=== PATIENT | female | born 1980 | race Caucasian/White ===

== ENCOUNTER 2016-09-07 07:43 | Emergency (ER) | payer OTHER ==
[~2016-09-07] VITALS: Ht 167.6 cm; Wt 98.9 kg
[~2016-09-07 07:43] MED LIST: ALBU1AER9 INH; BECL0.3A INH; DIPH-416 PO; MAGN500T3 PO; VTMD PO; ZOLM1TAB3 PO
[2016-09-07 07:51] VITALS: TEMP 36.8; Ht 167.6 cm; Wt 98.9 kg
[2016-09-07] MEDS ORDERED: ONDANSETRON INJ 2 MG/ML 2 ML VIAL IV STA ×2 (08:02→11:16)
[2016-09-07] MEDS ORDERED: SODIUM CHLORIDE 0.9% 1000ML 1,000 ML IV STA ×2 (08:02)
--- NOTE | 2016-09-07 08:16 | EMERGENCY ROOM VISIT NOTE ---
History Report prepared by Minnieibe: Althea Medina Under the Supervision of: Dr. Corie Hendrix M.D. First contact with patient: 08:00 Chief Complaint: ABDOMINAL PAIN Stated Complaint: VOMITING, ABDOMINAL CRAMPS, DIARRHEA Nursing Triage Summary: Abd pain, n/v/d Seen her GI phys on Saturday for same, was told to come here if no improvement. Recent dx of gastroparesis per pt. History of Present Illness The patient is a 36 year old female who presents to the Emergency Room with complaints of persistent abdominal pain for the past 8 days. She rates her discomfort as an 8/10 and describes the pain as feeling "crampy" in nature. She reports she saw her insurance salesman 4 days ago for the same symptoms, and was told to come to the ED if there was no improvement. She notes she was diagnosed with gastroparesis and Mendes's Esophagus in June 2016. Dr. Anderson of [facility] put her on Reglan last month, so she has been unable to take her Promethazine. She also complains of vomiting and diarrhea for the past several days. She describes the diarrhea as ranging from dark in color to "very watery". She has tried drinking water and Gatorade, but states she vomits the liquid right back up. 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 A total of 10 systems reviewed and were otherwise negative. Past Medical & Surgical Medical Problems: (1) Abdominal pain (2) Adverse reaction to calcium channel jasmyne (3) Bronchitis (4) Chronic neck pain (5) Depression (6) Gastroesophageal reflux disease (7) Hypothyroidism (8) Migraine (9) Polycystic ovaries (10) Right ovarian cyst Surgical Problems: (1) H/O sinus surgery (2) S/P cholecystectomy Family History Cancer Diabetes mellitus FHx: alcoholism Heart disease Hypertension Social History Smoking Status: Never Smoker Alcohol Use: none Drug Use: none Marital Status: single, in relationship Housing Status: lives with family Occupation Status: employed Current/Historical Medications Scheduled Amlodipine (Norvasc), 5 MG PO DAILY Atenolol (Tenormin), 25 MG PO QPM Baclofen (Baclofen), 20 MG PO TID Buspirone HCl (Buspirone HCl), 5 MG PO DAILY Duloxetine HCl (Duloxetine HCl), 90 MG PO DAILY Ergocalciferol (Vitamin D), 50,000 INTER.UNIT PO WK Famotidine (Pepcid), 20 MG PO DAILY Fish Oil ([place]-3), 1 CAP PO DAILY Fluticasone Propionate (Nasal) (Flonase Allergy Relief), 2 SPRAY YARELY BID Folic Acid (Folvite), 400 MCG PO DAILY Furosemide (Lasix), 20 MG PO BID Levothyroxine Sodium (Levothyroxine Sodium), 50 MCG PO DAILY Magnesium Gluconate (Magnesium Gluconate), 250 MG PO DAILY Metformin HCl (Metformin HCl), 500 MG PO BIDM Metoclopramide Hcl (Reglan), 5 MG PO TID Multivitamins/Minerals (Mvi With Minerals), 1 TAB PO DAILY Potassium Chloride Microencaps (Potassium Chloride Er), 1 TAB PO BID Propranolol (Inderal), 10 MG PO BID Tizanidine (Tizanidine HCl), 4-8 MG PO HS Trazodone Hcl (Trazodone), 50 MG PO HS Zolmitriptan (Zomig), 2.5 MG PO PRN Scheduled PRN Albuterol Sulfate (Proair Hfa), 2 PUFFS INH Q4-6HRS PRN for Chest Tightnes, Wheezing,SOB Beclomethasone Dipropionate (Qvar), 1 INHALER INH BID PRN for ALLERGIC REACTION Chlordiazepoxide/Clidinium (Librax 5MG/2.5MG), 1 CAP PO QID PRN for Hyoscyamine Sulfate (Hyoscyamine Sulfate), 0.125 MG PO Q4H PRN for Abdominal Pain Promethazine (Phenergan Suppository), 25 MG NC Q6H PRN for Nausea Promethazine HCl (Promethazine HCl), 25 MG PO HS PRN for Nausea or Migraine Allergies Coded Allergies: Cephalexin (Verified Allergy, Mild, rash, 09/07/16) Morphine (Verified Allergy, Unknown, HIVES/ITCHING, N&V, 09/07/16) Topiramate (Verified Allergy, Unknown, neurological symptoms, 09/07/16) Physical Exam Vital Signs Date Time Temp Pulse Resp B/P Pulse Ox O2 Delivery O2 Flow Rate FiO2 09/07/16 11:24 84 18 116/65 96 Room Air 09/07/16 09:02 91 18 110/65 96 Room Air 09/07/16 07:51 36.8 117 20 125/86 97 Room Air Physical Exam Vital signs reviewed. General: Well-appearing 36 year old female, in no significant distress. HEENT: No scleral icterus, PERRLA, neck supple. Atraumatic. Cardiovascular: Regular rate and rhythm, no extra sounds. Pulmonary: Clear to auscultation bilaterally, normal work of breathing. Abdomen: Soft, nontender, nondistended, positive bowel sounds. Musculoskeletal: Atraumatic, no peripheral edema. Neurologic: Patient awake alert and oriented x 3 Skin: Warm, dry, no rash Medical Decision & Procedures Laboratory Results 09/07/16 08:06 Red Blood Count 4.24, Mean Corpuscular Volume 88.0, Mean Corpuscular Hemoglobin 30.9, Mean Corpuscular Hemoglobin Concent 35.1, Mean Platelet Volume 9.7, Neutrophils (%) (Auto) 64.5, Lymphocytes (%) (Auto) 27.6, Monocytes (%) (Auto) 6.3, Eosinophils (%) (Auto) 1.4, Basophils (%) (Auto) 0.1, Neutrophils # (Auto) 5.99, Lymphocytes # (Auto) 2.57, Monocytes # (Auto) 0.59, Eosinophils # (Auto) 0.13, Basophils # (Auto) 0.01 09/07/16 08:06 Test 09/07/16 08:06 09/07/16 09:13 White Blood Count 9.30 K/uL (4.8-10.8) Red Blood Count 4.24 M/uL (4.2-5.4) Hemoglobin 13.1 g/dL (12.0-16.0) Hematocrit 37.3 % (37-47) Mean Corpuscular Volume 88.0 fL (80-100) Mean Corpuscular Hemoglobin 30.9 pg (25-34) Mean Corpuscular Hemoglobin Concent 35.1 g/dl (32-36) Platelet Count 270 K/uL (130-400) Mean Platelet Volume 9.7 fL (7.4-10.4) Neutrophils (%) (Auto) 64.5 % Lymphocytes (%) (Auto) 27.6 % Monocytes (%) (Auto) 6.3 % Eosinophils (%) (Auto) 1.4 % Basophils (%) (Auto) 0.1 % Neutrophils # (Auto) 5.99 K/uL (1.4-6.5) Lymphocytes # (Auto) 2.57 K/uL (1.2-3.4) Monocytes # (Auto) 0.59 K/uL (0.11-0.59) Eosinophils # (Auto) 0.13 K/uL (0-0.5) Basophils # (Auto) 0.01 K/uL (0-0.2) RDW Standard Deviation 43.5 fL (36.4-46.3) RDW Coefficient of Variation 13.5 % (11.5-14.5) Immature Granulocyte % (Auto) 0.1 % Immature Granulocyte # (Auto) 0.01 K/uL (0.00-0.02) Anion Gap 11.0 mmol/L (3-11) Est Creatinine Clear Calc Drug Dose 94.1 ml/min Estimated GFR () 86.0 Estimated GFR (Non- 74.2 BUN/Creatinine Ratio 8.2 (10-20) Calcium Level 8.9 mg/dl (8.5-10.1) Magnesium Level 2.1 mg/dl (1.8-2.4) Total Bilirubin 0.5 mg/dl (0.2-1) Direct Bilirubin 0.1 mg/dl (0-0.2) Aspartate Amino Transf (AST/SGOT) 25 U/L (15-37) Alanine Aminotransferase (ALT/SGPT) 33 U/L (12-78) Alkaline Phosphatase 90 U/L (45-117) Total Protein 7.5 gm/dl (6.4-8.2) Albumin 3.9 gm/dl (3.4-5.0) Lipase 116 U/L (73-393) Urine Color YELLOW Urine Appearance CLEAR (CLEAR) Urine pH 6.0 (4.5-7.5) Urine Specific [place] 1.007 (1.000-1.030) Urine Protein NEG (NEG) Urine Glucose (UA) NEG (NEG) Urine Ketones NEG (NEG) Urine Occult Blood NEG (NEG) Urine Nitrite NEG (NEG) Urine Bilirubin NEG (NEG) Urine Urobilinogen NEG (NEG) Urine Leukocyte Esterase NEG (NEG) Laboratory results per my review. Medications Administered Medications (Trade) Dose Ordered Sig/Jean Claude Route Start Time Stop Time Status Last Admin Dose Admin Sodium Chloride 1,000 ml @ 999 mls/hr Q1H1M STAT IV 09/07/16 08:02 09/07/16 09:02 DC 09/07/16 08:02 999 MLS/HR Sodium Chloride (Nss 1000ml) 1,000 ml @ 125 mls/hr Q8H STAT IV 09/07/16 08:02 09/07/16 12:10 DC 09/07/16 08:02 125 MLS/HR Ondansetron HCl (Zofran Inj) 4 mg NOW STAT IV 09/07/16 08:02 09/07/16 08:03 DC 09/07/16 08:24 4 MG Hydromorphone HCl (Dilaudid Inj) 1 mg NOW STAT IV 09/07/16 11:16 09/07/16 11:17 DC 09/07/16 11:23 1 MG ED Course 0802: Zofran 4 mg IV, NSS 1000 ml @ 125 mls/hr IV, NSS 1000 ml @ 999 mls/hr IV. 0807: Past medical records reviewed. The patient was evaluated in room B9. A complete history and physical examination was performed. 0945: I reevaluated the patient. She is resting comfortably. 1116: Dilaudid 1 mg IV. 1150: The patient was discharged prior to receiving any instructions. Medical Decision Etiologies such as appendicitis, diverticulitis, PUD, biliary pathology, UTI, pancreatitis, obstruction, mesenteric ischemia, aortic pathology, infections, inflammatory bowel disease, renal colic, as well as others were entertained. This patient was evaluated and appeared to be in no significant distress. IV access was obtained and laboratory work was drawn. 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 She was hydrated with normal saline solution, given IV Zofran for her discomfort. Laboratory work is fairly unrevealing, the patient was unable to provide a stool specimen. On reevaluation the patient stated that she was having cramping lower discomfort and back pain. She requested additional nausea medication as well. The patient was given 1 mg of IV Dilaudid and additional Zofran. She was feeling much improved. The patient was discharged however she was discharged prior to receiving instructions. Impression Primary Impression: Vomiting and diarrhea Scribe Attestation The scribe's documentation has been prepared under my direction and personally reviewed by me in its entirety. I confirm that the note above accurately reflects all work, treatment, procedures, and medical decision making performed by me. Departure Information Dispostion Home / Self-Care Referrals Melania Zhou D.O. (PCP) Patient Instructions A Signature Page
[2016-09-07 08:20] LABS: BASO % 0.1 %; BASO ABS # 0.01 K/uL (0-0.2); COMPLETE YES; EOS % 1.4 %; HEMATOCRIT 37.3 % (37-47); IG% 0.1 %; LYMPH % 27.6 %; LYMPH ABS # 2.57 K/uL (1.2-3.4); MEAN CORPUSCULAR HEMOGLOBIN 30.9 pg (25-34); MEAN CORPUSCULAR HGB CONC 35.1 g/dl (32-36); MEAN PLATELET VOLUME 9.7 fL (7.4-10.4); MONO % 6.3 %; NEUT % 64.5 %; PLATELET COUNT 270 K/uL (130-400); RED BLOOD COUNT 4.24 M/uL (4.2-5.4)
[2016-09-07 08:38] LABS: BUN/CREATININE RATIO 8.2 (10-20); CALCIUM 8.9 mg/dl (8.5-10.1); CREATININE 0.98 mg/dl (0.60-1.20); MAGNESIUM 2.1 mg/dl (1.8-2.4); POTASSIUM 3.5 mmol/L (3.5-5.1)
[2016-09-07 09:35] LABS: URINE APPEARANCE CLEAR (CLEAR); URINE BILIRUBIN NEG (NEG); URINE COLOR YELLOW; URINE NITRITE NEG (NEG); URINE SPECIFIC GRAVITY 1.007 (1.000-1.030); UROBILINOGEN NEG (NEG); ZZUR CULT IF INDIC CLEAN CATCH NO
[2016-09-07 09:37] LABS: MANUAL MICROSCOPIC REQUIRED? NO; REVIEW REQ? NO
[2016-09-07] MEDS ORDERED: HYDROmorphone INJ 1 MG/ML SYR IV STA (11:16)
[2016-09-07 11:24] VITALS: BP 116/65; PULSE 84; O2SAT 96
[2016-09-11] MEDS ORDERED: KETO10TA PO (18:20)
[2017-01-29] MEDS ORDERED: LEVO50TA6 PO (00:25)
[2017-01-29] MEDS ORDERED: GLC500 PO (00:27)
[2017-01-29] MEDS ORDERED: AMLO-110 PO (04:08)
[2017-01-29] MEDS ORDERED: METO1TAB54 PO (09:03)
[2017-01-29] MEDS ORDERED: FURO-85 PO (09:03)
[2017-01-29] MEDS ORDERED: FAMO20TA9 PO (09:03)
[2017-01-29] MEDS ORDERED: POTA20TA13 PO (09:03)
[2017-01-29] MEDS ORDERED: BSP/5 PO (11:38)
[2017-01-29] MEDS ORDERED: CLID5CAP PO (13:23)
[2017-01-29] MEDS ORDERED: ATEN-173 PO (19:24)
[2017-01-29] MEDS ORDERED: FLUT0.15 NAE (19:26)
[2017-01-29] MEDS ORDERED: CYM30 PO (21:02)
[2017-01-29] MEDS ORDERED: LVS125 PO (21:02)
[2017-01-29] MEDS ORDERED: PROM25TA16 PO (21:02)
[2017-01-29] MEDS ORDERED: OMEG10007 PO (21:06)
[2017-01-29] MEDS ORDERED: ERGO1CAP41 PO (22:40)
== END 2016-09-07 11:54 | disposition home or self-care (01) ==
LOC: C.EDB 07:46
DX: R11.2 Nausea with vomiting, unspecified (principal); R19.7 Diarrhea, unspecified; R10.9 Unspecified abdominal pain; K21.9 Gastro-esophageal reflux disease without esophagitis; E03.9 Hypothyroidism, unspecified; Z79.84 Long term (current) use of oral hypoglycemic drugs; Z79.899 Other long term (current) drug therapy; Z88.1 Allergy status to other antibiotic agents; Z88.5 Allergy status to narcotic agent; Z88.8 Allergy status to other drugs, medicaments and biological substances

== ENCOUNTER 2016-09-08 23:46 | Inpatient (IN) | payer OTHER ==
[~2016-09-08] VITALS: Ht 167.6 cm; Wt 97.7 kg
[~2016-09-08 23:46] MED LIST changes: -DIPH-416 PO
[2016-09-09] MEDS ORDERED: SODIUM CHLORIDE 0.9% 1000ML 1,000 ML IV STA ×2 (00:32)
[2016-09-09] MEDS ORDERED: ONDANSETRON INJ 2 MG/ML 2 ML VIAL IV STA (00:32)
[2016-09-09] MEDS ORDERED: HYDROmorphone INJ 2 MG/ML SYR/VIAL IV STA (00:54)
--- NOTE | 2016-09-09 00:59 | EMERGENCY ROOM VISIT NOTE ---
History Report prepared by Dion: John Taylor Under the Supervision of: Dr. Alida Castillo D.O. First contact with patient: 00:00 Chief Complaint: GI ASSESSMENT Stated Complaint: RETURN FROM YESTERDAY [facility] History of Present Illness The patient is a 36 year old female who presents to the Emergency Room with complaints of escalating diffuse abdominal pain for the past two weeks. The pain is described as cramping and is rated 8/10 in severity. The patient also complains of escalating nausea and vomiting. The patient had two episodes of diarrhea today as well. She has been unable to keep food or fluids down secondary to vomiting. The patient was seen in the ED yesterday for the same symptoms. She was given Zofran and Dilaudid. The patient's symptoms returned and worsened today. The patient also saw Dr. Anderson's PA on Saturday, who recommended Reglan. She has not had any improvements. She tried eating canned chicken today without success. She has a history of IBS, gastroparesis, and Mendes's esophagus. Source of History: patient Onset: two weeks Position: abdomen Symptom Intensity: 8/10 Quality: cramping Timing: worsening (escalating) Associated Symptoms: + diarrhea, + nausea, + vomiting Review of Systems See HPI for pertinent positives & negatives. A total of 10 systems reviewed and were otherwise negative. Past Medical & Surgical Medical Problems: (1) Abdominal pain (2) Adverse reaction to calcium channel jasmyne (3) Bronchitis (4) Chronic neck pain (5) Depression (6) Gastroesophageal reflux disease (7) Hypothyroidism (8) Migraine (9) Polycystic ovaries (10) Right ovarian cyst Surgical Problems: (1) H/O sinus surgery (2) S/P cholecystectomy Family History Cancer Diabetes mellitus FHx: alcoholism Heart disease Hypertension Social History Smoking Status: Never Smoker Alcohol Use: none Drug Use: none Marital Status: single, in relationship Housing Status: lives with family Occupation Status: employed Current/Historical Medications Scheduled Amlodipine (Norvasc), 5 MG PO DAILY Atenolol (Tenormin), 25 MG PO QPM Baclofen (Baclofen), 20 MG PO TID Buspirone HCl (Buspirone HCl), 5 MG PO DAILY Duloxetine HCl (Duloxetine HCl), 90 MG PO DAILY Ergocalciferol (Vitamin D), 50,000 INTER.UNIT PO WK Famotidine (Pepcid), 20 MG PO DAILY Fish Oil ([place]-3), 1 CAP PO DAILY Fluticasone Propionate (Nasal) (Flonase Allergy Relief), 2 SPRAY YARELY BID Folic Acid (Folvite), 400 MCG PO DAILY Furosemide (Lasix), 20 MG PO BID Levothyroxine Sodium (Levothyroxine Sodium), 50 MCG PO DAILY Magnesium Gluconate (Magnesium Gluconate), 250 MG PO DAILY Metformin HCl (Metformin HCl), 500 MG PO BIDM Metoclopramide Hcl (Reglan), 5 MG PO TID Multivitamins/Minerals (Mvi With Minerals), 1 TAB PO DAILY Potassium Chloride Microencaps (Potassium Chloride Er), 1 TAB PO BID Propranolol (Inderal), 10 MG PO BID Tizanidine (Tizanidine HCl), 4-8 MG PO HS Trazodone Hcl (Trazodone), 50 MG PO HS Zolmitriptan (Zomig), 2.5 MG PO PRN Scheduled PRN Albuterol Sulfate (Proair Hfa), 2 PUFFS INH Q4-6HRS PRN for Chest Tightnes, Wheezing,SOB Beclomethasone Dipropionate (Qvar), 1 INHALER INH BID PRN for ALLERGIC REACTION Chlordiazepoxide/Clidinium (Librax 5MG/2.5MG), 1 CAP PO QID PRN for Hyoscyamine Sulfate (Hyoscyamine Sulfate), 0.125 MG PO Q4H PRN for Abdominal Pain Promethazine (Phenergan Suppository), 25 MG MO Q6H PRN for Nausea Promethazine HCl (Promethazine HCl), 25 MG PO HS PRN for Nausea or Migraine Allergies Coded Allergies: Cephalexin (Verified Allergy, Mild, rash, 09/09/16) Morphine (Verified Allergy, Unknown, HIVES/ITCHING, N&V, 09/09/16) Topiramate (Verified Allergy, Unknown, neurological symptoms, 09/09/16) Physical Exam Vital Signs Date Time Temp Pulse Resp B/P Pulse Ox O2 Delivery O2 Flow Rate FiO2 09/08/16 23:55 36.8 77 20 139/90 93 Room Air Physical Exam HEENT: Head - normocephalic and atraumatic Pupils are equal, round, and reactive to light. Extraocular eye muscles are intact, and sclera are anicteric. Nose - moist nasal mucosa without discharge. Mouth - moist buccal mucosa. Oropharynx is nonerythematous and there is no tonsillar exudate or edema noted. Neck: Supple; no JVD, nuchal rigidity, cervical lymphadenopathy. Heart: Regular rate and rhythm. There is a normal S1 and S2 with no murmurs, clicks, or gallops appreciated. Lungs: Clear to auscultation bilaterally with no wheezes, rales, or rhonchi. Abdomen: Soft, right upper quadrant pain with palpation, nondistended, with good bowel sounds. There are no palpable pulsatile masses or hepatosplenomegaly. There is no guarding, rigidity, or rebound noted. Extremities: No evidence of cyanosis, clubbing, or edema. There are easily palpable peripheral pulses. Skin: warm and dry with good turgor and no rashes. Medical Decision & Procedures Laboratory Results Test 09/09/16 00:00 09/09/16 00:22 09/09/16 00:27 Urine Test NEG (NEG) Urine Color YELLOW Urine Appearance CLOUDY (CLEAR) Urine pH 6.0 (4.5-7.5) Urine Specific [place] 1.022 (1.000-1.030) Urine Protein NEG (NEG) Urine Glucose (UA) NEG (NEG) Urine Ketones TRACE (NEG) Urine Occult Blood NEG (NEG) Urine Nitrite NEG (NEG) Urine Bilirubin NEG (NEG) Urine Urobilinogen NEG (NEG) Urine Leukocyte Esterase TRACE (NEG) Urine WBC (Auto) 1-5 /hpf (0-5) Urine RBC (Auto) 0-4 /hpf (0-4) Urine Hyaline Casts (Auto) 1-5 /lpf (0-5) Urine Epithelial Cells (Auto) >30 /lpf (0-5) Urine Bacteria (Auto) 1+ (NEG) Urine Pathogenic Casts /lpf (0) Urine Mucus PRESENT (NONE PRSENT) Immature Granulocyte % (Auto) 0.2 % White Blood Count 10.16 K/uL (4.8-10.8) Red Blood Count 4.26 M/uL (4.2-5.4) Hemoglobin 13.2 g/dL (12.0-16.0) Hematocrit 37.6 % (37-47) Mean Corpuscular Volume 88.3 fL (80-100) Mean Corpuscular Hemoglobin 31.0 pg (25-34) Mean Corpuscular Hemoglobin Concent 35.1 g/dl (32-36) Platelet Count 319 K/uL (130-400) Mean Platelet Volume 10.1 fL (7.4-10.4) Neutrophils (%) (Auto) 62.5 % Lymphocytes (%) (Auto) 29.0 % Monocytes (%) (Auto) 6.4 % Eosinophils (%) (Auto) 1.7 % Basophils (%) (Auto) 0.2 % Neutrophils # (Auto) 6.35 K/uL (1.4-6.5) Lymphocytes # (Auto) 2.95 K/uL (1.2-3.4) Monocytes # (Auto) 0.65 K/uL (0.11-0.59) Eosinophils # (Auto) 0.17 K/uL (0-0.5) Basophils # (Auto) 0.02 K/uL (0-0.2) Immature Granulocyte # (Auto) 0.02 K/uL (0.00-0.02) Magnesium Level 2.2 mg/dl (1.8-2.4) Total Bilirubin 0.4 mg/dl (0.2-1) Direct Bilirubin < 0.1 mg/dl (0-0.2) Aspartate Amino Transf (AST/SGOT) 16 U/L (15-37) Alanine Aminotransferase (ALT/SGPT) 37 U/L (12-78) Alkaline Phosphatase 86 U/L (45-117) Total Protein 7.5 gm/dl (6.4-8.2) Albumin 3.9 gm/dl (3.4-5.0) Lipase 239 U/L (73-393) Laboratory results per my review. Medications Administered Medications (Trade) Dose Ordered Sig/Jean Claude Route Start Time Stop Time Status Last Admin Dose Admin Sodium Chloride (Nss 1000ml) 1,000 ml @ 999 mls/hr Q1H1M STAT IV 09/09/16 00:32 09/09/16 01:32 DC 09/09/16 00:47 999 MLS/HR Ondansetron HCl (Zofran Inj) 4 mg NOW STAT IV 09/09/16 00:32 09/09/16 00:33 DC 09/09/16 00:47 4 MG Hydromorphone HCl (Dilaudid Inj) 2 mg NOW STAT IV 09/09/16 00:54 09/09/16 00:55 DC 09/09/16 01:00 2 MG Procedure Medications administered include Zofran IV, NSS, Dilaudid IV. ED Course 0030: The patient was evaluated by the [employer]. 0032: Zofran 4 mg IV, NSS 1000 ml @ 250 mls/hr, NSS 1000 ml @ 999 mls/hr. 0045: Past medical records reviewed. The patient was evaluated in room B12b. A complete history and physical exam was performed. 0054: Dilaudid 2 mg IV. 0055: I reviewed the results of the lab with the patient and [facility] The patient will be evaluated. Medical Decision The patient is a 36 year old female who presents to the ED with abdominal pain. Differential diagnosis includes dehydration, exacerbation of gastroparesis, intractable vomiting, gastroenteritis. Laboratory interpretation: Lipase normal, LFTs normal, glucose 92, normal renal function, no leukocytosis, normal H&H. Urinalysis showed trace ketones, trace leukocyte esterase, 1+ bacteria. This is a 36 year old female patient with a history of gastroparesis who presents to the emergency department with abdominal pain, vomiting and diarrhea. The patient explains that her symptoms have been escalating over the past couple of weeks. She had been prescribed Reglan by her physician but this is not helping. She is unable to keep anything down at all at this time. [facility] for further management. Consults Time Called: 49 Consulting Physician[facility] Returned Call: [phone]: D[facility] the [facility] The patient will be evaluated. Impression Primary Impression: Gastroparesis Additional Impression: Dehydration Scribe Attestation The scribe's documentation has been prepared under my direction and personally reviewed by me in its entirety. I confirm that the note above accurately reflects all work, treatment, procedures, and medical decision making performed by me. Departure Information Dispostion Being Evaluated By Hospitalist Referrals Melania Zhou D.O. (PCP) Patient Instructions A Signature Page, [facility]
[2016-09-09 01:03] LABS: BASO % 0.2 %; BASO ABS # 0.02 K/uL (0-0.2); COMPLETE YES; EOS % 1.7 %; HEMATOCRIT 37.6 % (37-47); IG% 0.2 %; LYMPH ABS # 2.95 K/uL (1.2-3.4); MEAN CELL VOLUME 88.3 fL (80-100); MEAN CORPUSCULAR HGB CONC 35.1 g/dl (32-36); MEAN PLATELET VOLUME 10.1 fL (7.4-10.4); MONO % 6.4 %; NEUT % 62.5 %; PLATELET COUNT 319 K/uL (130-400); RED BLOOD COUNT 4.26 M/uL (4.2-5.4); WHITE BLOOD COUNT 10.16 K/uL (4.8-10.8)
[2016-09-09] MEDS ORDERED: ALUMINUM/MAGNESIUM/SIMETH (MAALOX MAX) 30 ML UDC PO PRN (01:30)
[2016-09-09] MEDS ORDERED: POLYETHYLENE (MIRALAX) 17 GM PACK PO PRN (01:30)
[2016-09-09] MEDS ORDERED: MAGNESIUM HYDROXIDE SUSP 30 ML UDC PO PRN (01:30)
[2016-09-09 01:34] LABS: ALT/SGPT 37 U/L (12-78); AST/SGOT 16 U/L (15-37); BLOOD UREA NITROGEN 8 mg/dl (7-18); BUN/CREATININE RATIO 7.8 (10-20); CALCIUM 8.8 mg/dl (8.5-10.1); CARBON DIOXIDE 22 mmol/L (21-32); CHLORIDE 108 mmol/L (98-107); GLUCOSE 92 mg/dl (70-99); MAGNESIUM 2.2 mg/dl (1.8-2.4); POTASSIUM 3.7 mmol/L (3.5-5.1); SODIUM 141 mmol/L (136-145)
[2016-09-09 01:36] LABS: ALKALINE PHOSPHATASE 86 U/L (45-117)
[2016-09-09 01:55] LABS: URINE APPEARANCE CLOUDY (CLEAR); URINE BILIRUBIN NEG (NEG); URINE COLOR YELLOW; URINE EPITHELIAL CELL AUTO >30 /lpf (0-5); URINE NITRITE NEG (NEG); URINE SPECIFIC GRAVITY 1.022 (1.000-1.030); UROBILINOGEN NEG (NEG)
[2016-09-09 02:00] VITALS: BP 129/85; PULSE 103; TEMP 36.7; O2SAT 93
--- NOTE | 2016-09-09 02:19 | History and Physical ---
History & Physical Date & Time of Service: Sep 09, 2016 at 01:56 Chief Complaint: Return From Yesterday Worse Gastro Primary Care Physician: Melania Zhou D.O. History of Present Illness Source: patient, clinic records, hospital records This is a 36 year old female with PMH of gastroparesis, Mendes's esophagus, mixed IBS, anxiety/depression, chronic back pain, insulin resistance, HTN, asthma presents with worsening nausea/vomiting and decreased PO intake as well as diarrhea. Patient was seen by GI last week; she has had upper GI series and has had delayed gastric emptying found in July of 2016; EGD was done showing Mendes's esophagus subsequently. She has been on Reglan with little improvement of her symptoms - she presented to the ER on 09/07/16; was sent home, and returned with similar symptoms. States she can't tolerate any liquids either. Denies fevers/chills. Past Medical/Surgical History Medical Problems: (1) Adverse reaction to calcium channel jasmyne Status: Resolved (2) Bronchitis Status: Resolved (3) Chronic neck pain Status: Chronic (4) Depression Status: Chronic (5) Gastroesophageal reflux disease Status: Chronic (6) Hypothyroidism Status: Chronic (7) Migraine Status: Chronic (8) Polycystic ovaries Status: Chronic (9) Right ovarian cyst Status: Chronic Surgical Problems: (1) H/O sinus surgery Status: Chronic (2) S/P cholecystectomy Status: Chronic Family History Cancer Diabetes mellitus FHx: alcoholism Heart disease Hypertension Social History Smoking Status: Never Smoker Drug Use: none Marital Status: single, in relationship Housing status: lives with family Occupational Status: employed Immunizations History of Influenza Vaccine: N/A History of Tetanus Vaccine?: Yes Tetanus Immunization Date: Apr 11, 2010 History of Pneumococcal: No History of Hepatitis B Vaccine: No Multi-Drug Resistant Organisms History of MDRO: No Allergies Coded Allergies: Cephalexin (Verified Allergy, Mild, rash, 09/09/16) Morphine (Verified Allergy, Unknown, HIVES/ITCHING, N&V, 09/09/16) Topiramate (Verified Allergy, Unknown, neurological symptoms, 09/09/16) Home Medications Scheduled Amlodipine (Norvasc), 5 MG PO DAILY Atenolol (Tenormin), 25 MG PO QPM Baclofen (Baclofen), 20 MG PO TID Buspirone HCl (Buspirone HCl), 5 MG PO DAILY Duloxetine HCl (Duloxetine HCl), 90 MG PO DAILY Ergocalciferol (Vitamin D), 50,000 INTER.UNIT PO WK Famotidine (Pepcid), 20 MG PO DAILY Fish Oil ([place]-3), 1 CAP PO DAILY Fluticasone Propionate (Nasal) (Flonase Allergy Relief), 2 [place] YARELY BID Folic Acid (Folvite), 400 MCG PO DAILY Furosemide (Lasix), 20 MG PO BID Levothyroxine Sodium (Levothyroxine Sodium), 50 MCG PO DAILY Magnesium Gluconate (Magnesium Gluconate), 250 MG PO DAILY Metformin HCl (Metformin HCl), 500 MG PO BIDM Metoclopramide Hcl (Reglan), 5 MG PO TID Multivitamins/Minerals (Mvi With Minerals), 1 TAB PO DAILY Potassium Chloride Microencaps (Potassium Chloride Er), 1 TAB PO BID Propranolol (Inderal), 10 MG PO BID Tizanidine (Tizanidine HCl), 4-8 MG PO HS Trazodone Hcl (Trazodone), 50 MG PO HS Zolmitriptan (Zomig), 2.5 MG PO PRN Scheduled PRN Albuterol Sulfate (Proair Hfa), 2 PUFFS INH Q4-6HRS PRN for Chest Tightnes, Wheezing,SOB Beclomethasone Dipropionate (Qvar), 1 INHALER INH BID PRN for ALLERGIC REACTION Chlordiazepoxide/Clidinium (Librax 5MG/2.5MG), 1 CAP PO QID PRN for Hyoscyamine Sulfate (Hyoscyamine Sulfate), 0.125 MG PO Q4H PRN for Abdominal Pain Promethazine (Phenergan Suppository), 25 MG [place] Q6H PRN for Nausea Promethazine HCl (Promethazine HCl), 25 MG PO HS PRN for Nausea or Migraine Review of Systems Constitutional: + fatigue, + weakness, No chills, No fever Respiratory: No cough, No shortness of breath, No sputum Cardiovascular: No chest pain Abdomen: + constipation (intermittent diarrhea/constipation), + diarrhea, + nausea, + pain, + vomiting, No GI bleeding Musculoskeletal: No joint pain, No muscle pain Genitourinary - Female: No dysuria, No hematuria, No urinary frequency, No urinary incontinence, No urinary retention, No urinary urgency Neurologic: No balance problems, No vertigo Hematologic / Lymphatic: No abnormal bleeding/bruising Physical Exam Vital Signs Date Time Temp Pulse Resp B/P Pulse Ox O2 Delivery O2 Flow Rate FiO2 09/08/16 23:55 36.8 77 20 139/90 93 Room Air General Appearance: + mild distress (nausea) Head: normocephalic, atraumatic Respiratory/Chest: lungs clear, normal breath sounds, no respiratory distress, no accessory muscle use Cardiovascular: regular rate, rhythm, no edema, no murmur Abdomen/GI: soft, + tenderness, + abnormal bowel sounds (decreased bowel sounds ) Extremities/Musculoskelatal: normal capillary refill, no pedal edema Neurologic/Psych: no motor/sensory deficits, alert, + pertinent finding (+ anxious) Skin: normal color Diagnostics Laboratory Results Results Past 24 Hours Test 09/09/16 00:22 09/09/16 00:27 Range/Units White Blood Count 10.16 4.8-10.8 K/uL Red Blood Count 4.26 4.2-5.4 M/uL Hemoglobin 13.2 12.0-16.0 g/dL Hematocrit 37.6 37-47 % Mean Corpuscular Volume 88.3 80-100 fL Mean Corpuscular Hemoglobin 31.0 25-34 pg Mean Corpuscular Hemoglobin Concent 35.1 32-36 g/dl Platelet Count 319 130-400 K/uL Mean Platelet Volume 10.1 7.4-10.4 fL Neutrophils (%) (Auto) 62.5 % Lymphocytes (%) (Auto) 29.0 % Monocytes (%) (Auto) 6.4 % Eosinophils (%) (Auto) 1.7 % Basophils (%) (Auto) 0.2 % Neutrophils # (Auto) 6.35 1.4-6.5 K/uL Lymphocytes # (Auto) 2.95 1.2-3.4 K/uL Monocytes # (Auto) 0.65 0.11-0.59 K/uL Eosinophils # (Auto) 0.17 0-0.5 K/uL Basophils # (Auto) 0.02 0-0.2 K/uL RDW Standard Deviation 43.1 36.4-46.3 fL RDW Coefficient of Variation 13.4 11.5-14.5 % Immature Granulocyte % (Auto) 0.2 % Immature Granulocyte # (Auto) 0.02 0.00-0.02 K/uL Sodium Level 141 136-145 mmol/L Potassium Level 3.7 3.5-5.1 mmol/L Chloride Level 108 98-107 mmol/L Carbon Dioxide Level 22 21-32 mmol/L Anion Gap 11.0 3-11 mmol/L Blood Urea Nitrogen 8 7-18 mg/dl Creatinine 1.00 0.60-1.20 mg/dl Est Creatinine Clear Calc Drug Dose 91.6 ml/min Estimated GFR () 83.9 Estimated GFR (Non- 72.4 BUN/Creatinine Ratio 7.8 10-20 Random Glucose 92 70-99 mg/dl Calcium Level 8.8 8.5-10.1 mg/dl Magnesium Level 2.2 1.8-2.4 mg/dl Total Bilirubin 0.4 0.2-1 mg/dl Direct Bilirubin < 0.1 0-0.2 mg/dl Aspartate Amino Transf (AST/SGOT) 16 15-37 U/L Alanine Aminotransferase (ALT/SGPT) 37 12-78 U/L Alkaline Phosphatase 86 45-117 U/L Total Protein 7.5 6.4-8.2 gm/dl Albumin 3.9 3.4-5.0 gm/dl Lipase 239 73-393 U/L Microbiology Results 09/09/16 Urine Culture, Celi Batch Pending Impression Assessment and Plan This is a 36 year old female with PMH of gastroparesis, Mendes's esophagus, mixed IBS, anxiety/depression, chronic back pain, insulin resistance, HTN, asthma presents with worsening nausea/vomiting and decreased PO intake as well as diarrhea. Decreased PO intake Nausea/vomiting Secondary to Gastroparesis -->patient with diagnosis of gastroparesis in July 2016 -->follows with GI; last seen late August -->was told to continue Reglan at that time -->she has been following medications - but the nausea/vomiting persisting -->will start IV erythromycin -->continue PPI, continue Zofran PRN -->GI for further recommendations Diarrhea Possibly secondary to IBS -->will obtain stool culture -->check for C. diff -->IVFs -->monitor for electrolyte abnormalities -->cont. hyoscyamine -->start with clears and advance as tolerated HTN -->blood pressure is controlled -->continue home medications Anxiety/Depression -->continue home medications DVT ppx -->SCDs FULL CODE VTE Prophylaxis VTE Risk Assessment Done? Y/N: Yes Risk Level: Moderate
[2016-09-09 02:22] LABS: MANUAL MICROSCOPIC REQUIRED? NO; REVIEW REQ? YES
[2016-09-09 02:24] LABS: URINE MUCUS PRESENT (NONE PRSENT)
[2016-09-09] MEDS ORDERED: IV FLUIDS COMPLETED PRN (02:30)
[2016-09-09 02:34] VITALS: BP 126/55; PULSE 103; TEMP 36.7; Ht 167.6 cm; Wt 97.7 kg
[2016-09-09] MEDS: ACETAMINOPHEN 325 MG TAB PO PRN ×2 (02:50→07:44)
[2016-09-09] MEDS: ONDANSETRON INJ 2 MG/ML 2 ML VIAL IV PRN ×2 (02:50→10:10)
[2016-09-09] MEDS ORDERED: PANTOprazole INJ 40 MG in SYRINGE 0 ML IV ONE (03:00)
[2016-09-09] MEDS: SODIUM CHLORIDE 0.9% 1000ML 1,000 ML IV SCH ×2 (04:09→08:44)
[2016-09-09] MEDS: HYOSCYAMINE SULFATE 0.125 MG SL TAB PO PRN ×3 (04:10→16:31)
[2016-09-09] MEDS: ERYTHROMYCIN IV 250 MG in SODIUM CHLORIDE 0.9% 250ML 250 ML IV SCH ×4 (04:40→21:32)
[2016-09-09] MEDS: LEVOTHYROXINE 50 MCG TAB PO SCH (05:33)
[2016-09-09] MEDS ORDERED: KETOROLAC TROMETHAMINE 30 MG/ML VIAL IV STA (05:42)
[2016-09-09 06:50] LABS: HEMATOCRIT 36.9 % (37-47); MEAN CELL VOLUME 89.6 fL (80-100); MEAN CORPUSCULAR HEMOGLOBIN 30.3 pg (25-34); MEAN CORPUSCULAR HGB CONC 33.9 g/dl (32-36); MEAN PLATELET VOLUME 10.1 fL (7.4-10.4); PLATELET COUNT 280 K/uL (130-400); RED BLOOD COUNT 4.12 M/uL (4.2-5.4); WHITE BLOOD COUNT 10.45 K/uL (4.8-10.8)
[2016-09-09 07:05] VITALS: BP 118/78; PULSE 79; TEMP 36.6; O2SAT 95
[2016-09-09 07:20] LABS: BUN/CREATININE RATIO 7.7 (10-20); CALCIUM 8.3 mg/dl (8.5-10.1); POTASSIUM 3.6 mmol/L (3.5-5.1)
[2016-09-09 07:25] LABS: PREG INTERNAL NEGATIVE QC NEG CLEAR BACKGROUND; PREG INTERNAL POSITIVE QC POS CONTROL LINE
[2016-09-09] MEDS: AMLODIPINE BESYLATE 5 MG TAB PO SCH (08:44)
[2016-09-09] MEDS: POTASSIUM CHLORIDE 20 MEQ TABCR PO SCH ×2 (08:45→21:30)
[2016-09-09] MEDS: PROPRANOLOL HCL 10 MG TAB PO SCH ×2 (08:45→21:30)
[2016-09-09] MEDS: DULOXETINE (CYMBALTA) 30 MG CAP PO SCH (08:45)
[2016-09-09] MEDS: FoLIC ACID TAB 400 MCG TAB PO SCH (08:45)
[2016-09-09] MEDS: BACLOFEN TAB 20 MG TAB PO SCH ×3 (08:46→21:31)
[2016-09-09 09:14] LABS: INFLUENZA A PCR Neg for Influ A (NEG); INFLUENZA B PCR Neg for Influ B (NEG)
[2016-09-09] MEDS: PANTOprazole INJ 40 MG in SYRINGE 0 ML IV SCH (10:11)
--- NOTE | 2016-09-09 10:18 | DIAGNOSTIC IMAGING REPORT ---
KUB HISTORY: Generalized abdominal pain. COMPARISON: Chest and abdominal series 02/20/2016. FINDINGS: There are few borderline dilated air-filled loops of small bowel within the abdomen. There is gas and stool seen throughout the majority of the colon. There are few pelvic phleboliths. No renal calculi. No ureteral calculi. No pneumoperitoneum or pneumatosis. Prior cholecystectomy. IMPRESSION: A few borderline dilated air-filled loops of small bowel within the abdomen with gas and stool throughout the majority of the colon. Findings favor a mild ileus. A low-grade partial small bowel obstruction could also have a similar appearance in the appropriate clinical setting. Follow KUB can be performed to ensure resolution. Electronically signed by: Rcik Brown M.D. 09/09/2016 10:16 AM Dictated Date/Time: 09/09/2016 10:14 AM
[2016-09-09] MEDS ORDERED: HYDROmorphone INJ 0.5 MG/0.5 ML SYR IV PRN ×2 (13:00→15:00)
[2016-09-09] MEDS ORDERED: HYDROmorphone INJ 0.5 MG/0.5 ML SYR ONE (13:18)
[2016-09-09] MEDS: D5W AND NSS 1,000 ML IV SCH ×2 (13:23→21:32)
[2016-09-09 15:15] VITALS: BP 126/84; PULSE 76; TEMP 36.7; O2SAT 94
--- NOTE | 2016-09-09 17:59 | Progress Note ---
Internal Med Progress Note Date of Service: Sep 09, 2016. Provider Documentation: SUBJECTIVE: nauseous has significant abdominal pain afebrile no chest pain or sob no cough OBJECTIVE: Vital Signs-as noted below Exam: General-alert and oriented x 3 ENT-normal hearing Neck-no neck masses Lungs-cta b/l no wheezing or crackles Heart-s1 and s2 heard regular rate and rhythm, no murmurs Abdomen-soft bowel sounds sluggish tenderness more in epigastric region no distension Extremities-no edema no erythema Neuro-alert and awake moves extremities Lab data as noted below. ASSESSMENT & PLAN: This is a 36 year old female with PMH of gastroparesis, Mendes's esophagus, mixed IBS, anxiety/depression, chronic back pain, insulin resistance, HTN, asthma presents with worsening nausea/vomiting and decreased PO intake as well as diarrhea. Decreased PO intake Nausea/vomiting Secondary to Gastroparesis patient with diagnosis of gastroparesis in July 2016 follows with GI on reglan started on IV erythromycin on PPI, continue Zofran PRN await GI inpout Ileus/PSBO iv fluids,NPO iv pain meds and antiemetics f/u kub gi consulted Diarrhea Possibly secondary to IBS on fluids f/u stool studies HTN on atenolol will monitor Anxiety/Depression continue home medications DVT ppx SCDs DISPOSITION to be determined Vital Signs: Date Time Temp Pulse Resp B/P Pulse Ox O2 Delivery O2 Flow Rate FiO2 09/09/16 15:15 36.7 76 18 126/84 94 Room Air 09/09/16 08:55 Room Air 09/09/16 07:05 36.6 79 18 118/78 95 Room Air 09/09/16 02:34 Room Air 09/09/16 02:34 36.7 103 16 126/55 Room Air 09/09/16 02:21 104 16 126/55 97 09/09/16 02:00 36.7 103 18 129/85 93 Room Air 09/08/16 23:55 36.8 77 20 139/90 93 Room Air Lab Results: Results Past 24 Hours Test 09/09/16 00:00 09/09/16 00:22 09/09/16 00:27 09/09/16 05:30 Range/Units Urine Test NEG NEG Urine Color YELLOW Urine Appearance CLOUDY CLEAR Urine pH 6.0 4.5-7.5 Urine Specific [place]ason 1.022 1.000-1.030 Urine Protein NEG NEG Urine Glucose (UA) NEG NEG Urine Ketones TRACE NEG Urine Occult Blood NEG NEG Urine Nitrite NEG NEG Urine Bilirubin NEG NEG Urine Urobilinogen NEG NEG Urine Leukocyte Esterase TRACE NEG Urine WBC (Auto) 1-5 0-5 /hpf Urine RBC (Auto) 0-4 0-4 /hpf Urine Hyaline Casts (Auto) 1-5 0-5 /lpf Urine Epithelial Cells (Auto) >30 0-5 /lpf Urine Bacteria (Auto) 1+ NEG Urine Pathogenic Casts 0 /lpf Urine Mucus PRESENT NONE PRSENT White Blood Count 10.16 4.8-10.8 K/uL Red Blood Count 4.26 4.2-5.4 M/uL Hemoglobin 13.2 12.0-16.0 g/dL Hematocrit 37.6 37-47 % Mean Corpuscular Volume 88.3 80-100 fL Mean Corpuscular Hemoglobin 31.0 25-34 pg Mean Corpuscular Hemoglobin Concent 35.1 32-36 g/dl Platelet Count 319 130-400 K/uL Mean Platelet Volume 10.1 7.4-10.4 fL Neutrophils (%) (Auto) 62.5 % Lymphocytes (%) (Auto) 29.0 % Monocytes (%) (Auto) 6.4 % Eosinophils (%) (Auto) 1.7 % Basophils (%) (Auto) 0.2 % Neutrophils # (Auto) 6.35 1.4-6.5 K/uL Lymphocytes # (Auto) 2.95 1.2-3.4 K/uL Monocytes # (Auto) 0.65 0.11-0.59 K/uL Eosinophils # (Auto) 0.17 0-0.5 K/uL Basophils # (Auto) 0.02 0-0.2 K/uL RDW Standard Deviation 43.1 36.4-46.3 fL RDW Coefficient of Variation 13.4 11.5-14.5 % Immature Granulocyte % (Auto) 0.2 % Immature Granulocyte # (Auto) 0.02 0.00-0.02 K/uL Sodium Level 141 136-145 mmol/L Potassium Level 3.7 3.5-5.1 mmol/L Chloride Level 108 98-107 mmol/L Carbon Dioxide Level 22 21-32 mmol/L Anion Gap 11.0 3-11 mmol/L Blood Urea Nitrogen 8 7-18 mg/dl Creatinine 1.00 0.60-1.20 mg/dl Est Creatinine Clear Calc Drug Dose 91.6 ml/min Estimated GFR () 83.9 Estimated GFR (Non- 72.4 BUN/Creatinine Ratio 7.8 10-20 Random Glucose 92 70-99 mg/dl Calcium Level 8.8 8.5-10.1 mg/dl Magnesium Level 2.2 1.8-2.4 mg/dl Total Bilirubin 0.4 0.2-1 mg/dl Direct Bilirubin < 0.1 0-0.2 mg/dl Aspartate Amino Transf (AST/SGOT) 16 15-37 U/L Alanine Aminotransferase (ALT/SGPT) 37 12-78 U/L Alkaline Phosphatase 86 45-117 U/L Total Protein 7.5 6.4-8.2 gm/dl Albumin 3.9 3.4-5.0 gm/dl Lipase 239 73-393 U/L Influenza Type A (RT-PCR) Neg for Influ A NEG Influenza Type B (RT-PCR) Neg for Influ B NEG Test 09/09/16 05:50 Range/Units White Blood Count 10.45 4.8-10.8 K/uL Red Blood Count 4.12 4.2-5.4 M/uL Hemoglobin 12.5 12.0-16.0 g/dL Hematocrit 36.9 37-47 % Mean Corpuscular Volume 89.6 80-100 fL Mean Corpuscular Hemoglobin 30.3 25-34 pg Mean Corpuscular Hemoglobin Concent 33.9 32-36 g/dl RDW Standard Deviation 44.6 36.4-46.3 fL RDW Coefficient of Variation 13.5 11.5-14.5 % Platelet Count 280 130-400 K/uL Mean Platelet Volume 10.1 7.4-10.4 fL Sodium Level 139 136-145 mmol/L Potassium Level 3.6 3.5-5.1 mmol/L Chloride Level 107 98-107 mmol/L Carbon Dioxide Level 23 21-32 mmol/L Anion Gap 9.0 3-11 mmol/L Blood Urea Nitrogen 8 7-18 mg/dl Creatinine 1.00 0.60-1.20 mg/dl Est Creatinine Clear Calc Drug Dose 91.6 ml/min Estimated GFR () 83.9 Estimated GFR (Non- 72.4 BUN/Creatinine Ratio 7.7 10-20 Random Glucose 90 70-99 mg/dl Calcium Level 8.3 8.5-10.1 mg/dl Microbiology Results 09/09/16 Urine Culture, Received Pending
[2016-09-09 21:28] VITALS: BP 114/69; PULSE 74
[2016-09-09] MEDS: TRAZODONE HCL 50 MG TAB PO SCH (21:30)
[2016-09-09 23:53] VITALS: BP 104/66; PULSE 65; TEMP 36.3; O2SAT 93
[2016-09-10] MEDS: ERYTHROMYCIN IV 250 MG in SODIUM CHLORIDE 0.9% 250ML 250 ML IV SCH ×4 (04:11→22:06)
[2016-09-10] MEDS: D5W AND NSS 1,000 ML IV SCH ×3 (05:38→21:01)
[2016-09-10] MEDS: LEVOTHYROXINE 50 MCG TAB PO SCH (05:39)
[2016-09-10 06:24] LABS: ESTIMATED AVERAGE GLUCOSE 94 mg/dl; HA1C FLAG Normal (Normal)
[2016-09-10] MEDS: HYOSCYAMINE SULFATE 0.125 MG SL TAB PO PRN (07:46)
[2016-09-10] MEDS: PROPRANOLOL HCL 10 MG TAB PO SCH ×2 (07:46→20:48)
[2016-09-10] MEDS: POTASSIUM CHLORIDE 20 MEQ TABCR PO SCH ×2 (07:46→20:51)
[2016-09-10] MEDS: AMLODIPINE BESYLATE 5 MG TAB PO SCH (07:47)
[2016-09-10] MEDS: BACLOFEN TAB 20 MG TAB PO SCH ×3 (07:49→20:49)
[2016-09-10] MEDS: DULOXETINE (CYMBALTA) 30 MG CAP PO SCH (07:50)
[2016-09-10] MEDS: FoLIC ACID TAB 400 MCG TAB PO SCH (07:50)
[2016-09-10 07:55] VITALS: BP 110/74; PULSE 60; TEMP 36.5; O2SAT 98
[2016-09-10 08:46] VITALS: O2SAT 98
[2016-09-10] MEDS: PANTOprazole INJ 40 MG in SYRINGE 0 ML IV SCH (10:30)
[2016-09-10] MEDS ORDERED: ZOLMITRIPTAN 2.5 MG PO SCH (10:45)
[2016-09-10] MEDS ORDERED: BECLOMETHASONE DIP HFA 80 MCG 8.7G INH INH PRN (10:45)
[2016-09-10] MEDS ORDERED: ALBUTEROL HFA 8 GM INHALER INH PRN (10:45)
[2016-09-10] MEDS ORDERED: SUMATRIPTAN SUCCINATE 50 MG TAB PO SCH (10:55)
--- NOTE | 2016-09-10 11:14 | Gastrointestinal Consultation ---
Gastrointestinal Consultation Date of Consultation: Sep 10, 2016 Consulting Physician: Dr. nAderson Reason for Consultation: nausea/vomitting gastroparesis History of Present Illness Patient is a 36 year old female with past medical history significant for depression, IBS, migraines, HTN, PCOS, fatty liver, gastroparesis. She presented to the ED with increased abdominal discomfort, nausea and previous episodes of vomiting. She has not experienced vomiting since Saturday and states that she no longer has nausea now that she is NPO. She states that her abdominal pain is generalized x 4 quadrants but worse in the upper quadrants. The pain is intermittent and cramping, She also notes that she has IBS and gets associated cramping pains with alternative BM (diarrhea and constipation) Patient states that she is passing gas but has not had a BM since Saturday. She states that she doesn't feel distended. She denies fever, chills, SORIANO, nausea, vomiting, black/bloody BMs at this time. KUB 09/09/2016: A few borderline dilated air-filled loops of small bowel within the abdomen with gas and stool throughout the majority of the colon. Findings favor a mild ileus. A low-grade partial small bowel obstruction could also have a similar appearance in the appropriate clinical setting. Follow KUB can be performed to ensure resolution. Gastric Emptying Study 07/13/16: abnormal delayed emptying - Visually, there is abnormal passage of the radiotracer from the stomach into the small bowel. Retained gastric activity is as follows: 60 minutes: 96% (Reference range 30-90% ) 120 minutes: 83% (Reference range less than 60%) 240 minutes: 31% ( Reference range less than 10%) EGD 06/20/16: food in stomach, Mendes esophagus Past Medical/Surgical History Medical Problems: (1) Abdominal pain Status: Acute (2) Chest pain Status: Acute (3) Dehydration Status: Acute (4) Gastroparesis Status: Acute (5) Headache Status: Acute (6) Headache Status: Acute (7) Syncope Status: Acute (8) Vomiting Status: Acute Family History Cancer Diabetes mellitus FHx: alcoholism Heart disease Hypertension Social History Smoking Status: Never Smoker Alcohol Use: none Drug Use: none Marital Status: single, in relationship Housing Status: lives with family Occupation Status: employed Allergies Coded Allergies: Cephalexin (Verified Allergy, Mild, rash, 09/09/16) Morphine (Verified Allergy, Unknown, HIVES/ITCHING, N&V, 09/09/16) Topiramate (Verified Allergy, Unknown, neurological symptoms, 09/09/16) Current Medications Home Meds and Scripts Medications Dose Route/Sig Max Daily Dose Days Date Category Dose Instructions Pepcid (Famotidine) 20 Mg Tab 20 Mg PO DAILY 09/07/16 Reported Potassium Chloride Er (Potassium Chloride Microencaps) 20 Meq Tab 1 Tab PO BID 90 09/07/16 Reported Lasix (Furosemide) 20 Mg Tab 20 Mg PO BID 09/07/16 Reported Reglan (Metoclopramide Hcl) 5 Mg Tab 5 Mg PO TID 09/07/16 Reported 30 MINUTES BEFORE MEALS. Zomig (Zolmitriptan) 5 Mg Tab 2.5 Mg PO PRN 07/25/16 Reported 2.5mg as needed, may repeat one dose two hours later, up to two times per week, Flonase Allergy Relief (Fluticasone Propionate (Nasal)) 50 Mcg/Act Spr 2 [place] YARELY BID 07/25/16 Reported Tenormin (Atenolol) 25 Mg Tab 25 Mg PO QPM 07/25/16 Reported Norvasc (Amlodipine Besylate) 5 Mg Tab 5 Mg PO DAILY 03/31/16 Reported Buspirone HCl 5 Mg Tab 5 Mg PO DAILY 03/24/16 Reported Librax 5MG/2.5MG (Chlordiazepoxide/Clidinium) Cap 1 Cap PO QID PRN 02/23/16 Reported Phenergan Suppository (Promethazine HCl) 25 Mg Supp 25 Mg DC Q6H PRN 01/13/16 Reported Inderal (Propranolol HCl) 10 Mg Tab 10 Mg PO BID 01/13/16 Reported Tizanidine HCl (Tizanidine) 4 Mg Tab 4-8 Mg PO HS 01/13/16 Reported Vitamin D (Ergocalciferol) 50,000 Interunit Cap 50,000 Inter.unit PO WK 01/13/16 Reported TAKE THIS MEDICATION EVERY SATURDAY. Folvite (Folic Acid) 400 Mcg Tab 400 Mcg PO DAILY 01/13/16 Reported Mvi With Minerals (Multivitamins/Minerals) Tab 1 Tab PO DAILY 12/03/15 Reported Baclofen 20 Mg Tab 20 Mg PO TID 08/09/15 Reported Metformin HCl 500 Mg Tab 500 Mg PO BIDM 04/07/15 Reported Levothyroxine Sodium 50 Mcg Tab 50 Mcg PO DAILY 04/07/15 Reported Magnesium Gluconate 500 Mg Tab 250 Mg PO DAILY 04/07/15 Reported Qvar (Beclomethasone Dipropionate) 80 Mcg/ Aer 1 Inhaler INH BID PRN 02/25/15 Reported [place]-3 (Fish Oil) 1 Ea Cap 1 Cap PO DAILY 02/25/15 Reported Hyoscyamine Sulfate 0.125 Mg Tab 0.125 Mg PO Q4H PRN 02/25/15 Reported PLACED ON HOLD DUE TO NEW MEDICATION, Proair Hfa (Albuterol Sulfate) 108 Mcg/ Aer 2 Puffs INH Q4-6HRS PRN 02/25/15 Reported Duloxetine HCl 30 Mg Cap 90 Mg PO DAILY 02/25/15 Reported Promethazine HCl 25 Mg Tab 25 Mg PO HS PRN 02/25/15 Reported TAKE IF UNABLE TO SLEEP FROM NAUSEA/MIGRAINE Trazodone (Trazodone HCl) 50 Mg Tab 50 Mg PO HS 01/27/15 Reported Review of Systems Constitutional: No chills, No fever Respiratory: No cough, No shortness of breath Cardiac: No chest pain, No edema Abdomen: + constipation, No GI bleeding, No diarrhea, No nausea, No pain, No vomiting Physical Exam Date Time Temp Pulse Resp B/P Pulse Ox O2 Delivery O2 Flow Rate FiO2 09/10/16 08:46 98 Room Air 09/10/16 07:55 36.5 60 17 110/74 98 Room Air 09/10/16 07:40 Room Air 09/09/16 23:53 36.3 65 16 104/66 93 Room Air 09/09/16 23:25 Room Air 09/09/16 21:28 74 114/69 09/09/16 16:20 Room Air 09/09/16 15:15 36.7 76 18 126/84 94 Room Air General Appearance: no apparent distress (patient is resting comfortably in bed ) Eyes: PERRL ENT: hearing grossly normal Neck: supple, trachea midline Respiratory/Chest: chest non-tender, lungs clear, normal breath sounds, no respiratory distress, no accessory muscle use Cardiovascular: regular rate, rhythm, no edema, no gallop, no JVD, no murmur Abdomen: normal bowel sounds, non tender, soft, no organomegaly, no pulsatile mass Neurologic/Psych: alert, normal mood/affect, oriented x 3 Skin: normal color, no jaundice, warm/dry, no rash Impression Patient is a 36 year old female with delayed gastric emptying who presented to the ED for nausea, vomiting and diffuse abd pain. KUB was ordered and suggestive of mild ileus/low-grade partial SBO Plan NPO repeat KUB today IV erythromycin 100mg q8 IV reglan 10mg TID until d/c PPI daily continue GI prophylaxis ATTESTATION: I have performed a history and physical examination of this patient and reviewed the electronic record. Specifically, on physical examination there is mild diffuse tenderness. KUB is unremarkable. I have discussed the case with MATT Lorenz. The above note reflects my findings, conclusions, and recommendations. Jovon Anderson MD
--- NOTE | 2016-09-10 11:36 | DIAGNOSTIC IMAGING REPORT ---
KUB CLINICAL HISTORY: Partial small bowel obstruction. COMPARISON STUDY: KUB September 09, [address] of the abdomen and pelvis July 25, 2016. FINDINGS: There are cholecystectomy clips. Small bowel dilatation has improved. There is no evidence for a bowel obstruction on this exam. Pelvic calcifications represent phleboliths. IMPRESSION: Interval improvement in small bowel dilatation. No evidence of a bowel obstruction. Electronically signed by: Kush White M.D. 09/10/2016 11:34 AM Dictated Date/Time: 09/10/2016 11:33 AM
[2016-09-10] MEDS ORDERED: METOCLOPRAMIDE HCL INJ 5 MG/ML 2 ML VIAL IV. SCH (14:00)
[2016-09-10 14:49] VITALS: BP 108/72; PULSE 56; TEMP 36.9; O2SAT 95
[2016-09-10 14:51] VITALS: PULSE 61
[2016-09-10 15:30] VITALS: O2SAT 95
--- NOTE | 2016-09-10 18:06 | Progress Note ---
Internal Med Progress Note Date of Service: Sep 10, 2016. Provider Documentation: SUBJECTIVE: still nauseous passing some gas has abdominal pain afebrile OBJECTIVE: Vital Signs-as noted below Exam: General-alert and oriented x 3 ENT-normal hearing Neck-no neck masses Lungs-cta b/l no wheezing or crackles Heart-s1 and s2 heard regular rate and rhythm, no murmurs Abdomen-soft bowel sounds sluggish tenderness more in epigastric region no distension Extremities-no edema no erythema Neuro-alert and awake moves extremities Lab data as noted below. ASSESSMENT & PLAN: This is a 36 year old female with PMH of gastroparesis, Mendes's esophagus, mixed IBS, anxiety/depression, chronic back pain, insulin resistance, HTN, asthma presents with worsening nausea/vomiting and decreased PO intake as well as diarrhea. Decreased PO intake Nausea/vomiting Secondary to Gastroparesis patient with diagnosis of gastroparesis in July 2016 follows with GI started on IV erythromycin and iv regaln on PPI, continue Zofran PRN appreciate GI input Ileus/PSBO iv fluids,NPO iv pain meds and antiemetics KUB today small bowel dilatation but no obstruction may start on clears if nausea improves gi consulted Diarrhea Possibly secondary to IBS on fluids f/u stool studies HTN on atenolol will monitor Anxiety/Depression continue home medications DVT ppx SCDs DISPOSITION to be determined Vital Signs: Date Time Temp Pulse Resp B/P Pulse Ox O2 Delivery O2 Flow Rate FiO2 09/10/16 14:51 61 09/10/16 14:49 36.9 56 14 108/72 95 Room Air 09/10/16 08:46 98 Room Air 09/10/16 07:55 36.5 60 17 110/74 98 Room Air 09/10/16 07:40 Room Air 09/09/16 23:53 36.3 65 16 104/66 93 Room Air 09/09/16 23:25 Room Air 09/09/16 21:28 74 114/69
[2016-09-10 20:40] VITALS: BP 108/74; PULSE 68
[2016-09-10] MEDS: FLUTICASONE PROPIONATE NA SPR 16 GM BTL NAE SCH (20:46)
[2016-09-10] MEDS: METOCLOPRAMIDE HCL INJ 5 MG/ML 2 ML VIAL IV. SCH (20:47)
[2016-09-10] MEDS: TRAZODONE HCL 50 MG TAB PO SCH (20:50)
[2016-09-11] MEDS: HYOSCYAMINE SULFATE 0.125 MG SL TAB PO PRN (00:04)
[2016-09-11] MEDS: ERYTHROMYCIN IV 250 MG in SODIUM CHLORIDE 0.9% 250ML 250 ML IV SCH ×3 (03:54→15:57)
[2016-09-11] MEDS: LEVOTHYROXINE 50 MCG TAB PO SCH (05:18)
[2016-09-11] MEDS: D5W AND NSS 1,000 ML IV SCH ×2 (05:19→13:43)
[2016-09-11 07:35] VITALS: BP 106/67; PULSE 57; TEMP 36.6; O2SAT 95
--- NOTE | 2016-09-11 08:03 | DIAGNOSTIC IMAGING REPORT ---
KUB CLINICAL HISTORY: Ileus. Gastroparesis. COMPARISON STUDY: 09/10/2016 FINDINGS: There is gas within nondilated large and small bowel loops. There are no transition zones indicate bowel obstruction. There are surgical clips within the right upper quadrant consistent with a prior cholecystectomy. Pelvic basin calcifications remain stable and likely represent phleboliths. IMPRESSION: No evidence of pathologic bowel dilatation Electronically signed by: Tonio Bowie M.D. 09/11/2016 8:02 AM Dictated Date/Time: 09/11/2016 8:01 AM
[2016-09-11] MEDS: FLUTICASONE PROPIONATE NA SPR 16 GM BTL NAE SCH (08:32)
[2016-09-11] MEDS: METOCLOPRAMIDE HCL INJ 5 MG/ML 2 ML VIAL IV. SCH ×2 (08:32→13:43)
[2016-09-11] MEDS: FoLIC ACID TAB 400 MCG TAB PO SCH (08:32)
[2016-09-11] MEDS: AMLODIPINE BESYLATE 5 MG TAB PO SCH (08:33)
[2016-09-11] MEDS: DULOXETINE (CYMBALTA) 30 MG CAP PO SCH (08:33)
[2016-09-11] MEDS: PROPRANOLOL HCL 10 MG TAB PO SCH (08:33)
[2016-09-11] MEDS: POTASSIUM CHLORIDE 20 MEQ TABCR PO SCH (08:34)
[2016-09-11] MEDS: BACLOFEN TAB 20 MG TAB PO SCH ×2 (08:34→13:44)
[2016-09-11 08:39] VITALS: PULSE 62
--- NOTE | 2016-09-11 09:44 | Gastroenterology Progress Note ---
Progress Note Date of Service: Sep 11, 2016 Subjective Pt evaluation today including: conversation w/ patient, physical exam, chart review, lab review Patient was examined this morning. She states that her abdomen feels better. She tolerated a full liquid diet for dinner and for breakfast without any increase in abdominal pain, nausea or vomiting. She reports a large liquid bowel movement and often flatus. No black/bloody stools. She reports that she has a bad migraine this AM and has requested pain medication/her migraine medication for the migraine. She denies any chest pain, SOB, N/V/D. KUB 09/11/16:There is gas within nondilated large and small bowel loops. There are no transition zones indicate bowel obstruction. There are surgical clips within the right upper quadrant consistent with a prior cholecystectomy. Pelvic basin calcifications remain stable and likely represent phleboliths. No evidence of pathologic bowel dilatation Review of Systems Constitutional: No chills, No fever Eyes: No worsening of vision ENT: No hearing loss Respiratory: No cough, No shortness of breath Cardiac: No chest pain, No edema Abdomen: No GI bleeding, No constipation, No diarrhea, No nausea, No pain, No vomiting Medications Current Inpatient Medications Medications (Trade) Dose Ordered Sig/Jean Claude Route Start Time Stop Time Status Last Admin Dose Admin Acetaminophen (Tylenol Tab) 650 mg Q4H PRN PO 09/09/16 01:30 10/09/16 01:29 09/09/16 07:44 650 MG Al Hydrox/Mg Hydrox/Simethicone (Maalox Max Susp) 15 ml Q4H PRN PO 09/09/16 01:30 10/09/16 01:29 Magnesium Hydroxide (Milk Of Magnesia Susp) 30 ml Q6H PRN PO 09/09/16 01:30 10/09/16 01:29 Polyethylene (Miralax Powder Packet) 17 gm DAILY PRN PO 09/09/16 01:30 10/09/16 01:29 Ondansetron HCl (Zofran Inj) 4 mg Q6H PRN IV 09/09/16 01:30 10/09/16 01:29 09/09/16 10:10 4 MG Amlodipine Besylate (Norvasc Tab) 5 mg DAILY PO 09/09/16 09:00 10/09/16 08:59 09/11/16 08:33 5 MG Atenolol (Tenormin Tab) 25 mg QPM PO 09/09/16 21:00 10/09/16 20:59 09/10/16 20:51 25 MG Baclofen (Lioresal Tab) 20 mg TID PO 09/09/16 09:00 10/09/16 08:59 09/11/16 08:34 20 MG Buspirone HCl (Buspar Tab) 5 mg DAILY PO 09/09/16 09:00 10/09/16 08:59 09/11/16 08:33 5 MG Duloxetine HCl (Cymbalta Cap) 90 mg DAILY PO 09/09/16 09:00 10/09/16 08:59 09/11/16 08:33 90 MG Folic Acid (Folvite Tab) 400 mcg DAILY PO 09/09/16 09:00 10/09/16 08:59 09/11/16 08:32 400 MCG Hyoscyamine Sulfate (Levsin Tab) 0.125 mg Q4H PRN PO 09/09/16 01:30 10/09/16 01:29 09/11/16 00:04 0.125 MG Levothyroxine Sodium (Synthroid Tab) 50 mcg DAILYBB PO 09/09/16 06:00 10/09/16 05:59 09/11/16 05:18 50 MCG Potassium Chloride (Klor-Con Tab) 20 meq BID PO 09/09/16 09:00 10/09/16 08:59 09/11/16 08:34 20 MEQ Propranolol HCl (Inderal Tab) 10 mg BID PO 09/09/16 09:00 10/09/16 08:59 09/11/16 08:33 10 MG Trazodone HCl 50 mg 50 mg HS PO 09/09/16 21:00 10/09/16 20:59 09/10/16 20:50 50 MG Pantoprazole Sodium 40 mg/ Syringe 10 ml @ 5 mls/min DAILY@11 IV 09/09/16 11:00 10/09/16 10:59 09/10/16 10:30 5 MLS/MIN Erythromycin Lactobionate/ Sodium Chloride (Erythrocin IV/ Nss 250ml) 255 ml @ 250 mls/hr Q6H IV 09/09/16 04:00 09/19/16 03:59 09/11/16 03:54 250 MLS/HR Miscellaneous 1 ea 1 ea PRN PRN N/A 09/09/16 02:30 09/09/17 02:29 Dextrose/Sodium Chloride (D5W And Nss) 1,000 ml @ 125 mls/hr Q8H IV 09/09/16 13:15 10/09/16 13:14 09/11/16 05:19 125 MLS/HR Hydromorphone HCl (Dilaudid Inj) 0.5 mg Q3HWA PRN IV 09/09/16 15:00 09/23/16 14:59 09/09/16 21:33 0.5 MG Albuterol (Ventolin Hfa Inhaler) 2 puffs Q6 PRN INH 09/10/16 10:45 10/10/16 10:44 Beclomethasone Dipropionate (Qvar 80 Mcg Hfa Inhaler) 1 puffs BID PRN INH 09/10/16 10:45 10/10/16 10:44 Fluticasone Propionate (Flonase Nasal Hay) 2 sprays BID YARELY 09/10/16 21:00 10/10/16 20:59 09/11/16 08:32 2 SPRAYS Metoclopramide HCl (Reglan Inj) 5 mg TID IV. 09/10/16 21:00 10/10/16 20:59 09/11/16 08:32 5 MG Objective Vital Signs Date Time Temp Pulse Resp B/P Pulse Ox O2 Delivery O2 Flow Rate FiO2 09/11/16 08:39 62 09/11/16 07:50 Room Air 09/11/16 07:35 36.6 57 18 106/67 95 Room Air 09/10/16 23:35 Room Air 09/10/16 20:40 68 108/74 09/10/16 15:30 95 Room Air 09/10/16 14:51 61 09/10/16 14:49 36.9 56 14 108/72 95 Room Air Physical Exam General Appearance: no apparent distress Eyes: PERRL ENT: hearing grossly normal Neck: supple, trachea midline Respiratory/Chest: lungs clear, normal breath sounds, no respiratory distress, no accessory muscle use Cardiovascular: regular rate, rhythm, no edema, no gallop, no JVD, no murmur Abdomen: normal bowel sounds, non tender, soft, no organomegaly Neurologic/Psych: alert, normal mood/affect, oriented x 3 Skin: normal color, no jaundice, warm/dry, no rash Assessment and Plan Patient is a 36 year old female with delayed gastric emptying who presented to the ED for nausea, vomiting and diffuse abd pain. KUB was ordered and suggestive of mild ileus/low-grade partial SBO. KUB was repeated today and was unremarkable Plan full liquids IV erythromycin 100mg q8 inpatient IV reglan 5mg TID inpatient PPI daily continue GI prophylaxis Please keep follow up GI appointment for the beginning of October GI to sign off. GI ok to discharge. Please call with any questions. Please keep patient on outpatient dosing of PO reglan when she is discharged. ATTESTATION: I have performed a history and physical examination of this patient and reviewed the electronic record. Specifically, on physical examination there is no signifnicant abdominal tenderness. I have discussed the case with MATT Lorenz. The above note reflects my findings, conclusions, and recommendations. Jovon Anderson MD
[2016-09-11] MEDS: PANTOprazole INJ 40 MG in SYRINGE 0 ML IV SCH (10:53)
[2016-09-11] MEDS: SUMATRIPTAN SUCCINATE 50 MG TAB PO PRN ×2 (11:23→13:45)
[2016-09-11 15:31] VITALS: BP 109/62; PULSE 73; TEMP 37.2; O2SAT 97
[2016-09-11] MEDS: ACETAMINOPHEN 325 MG TAB PO PRN (16:00)
--- NOTE | 2016-09-11 17:05 | Progress Note ---
Internal Med Progress Note Date of Service: Sep 11, 2016. Provider Documentation: SUBJECTIVE: feels much better today abdominal pain nausea has resolved tolerating diet well had migraine headache earlier -improved with Imitrex wants to be discharged home OBJECTIVE: Vital Signs-as noted below Exam: General-no sign of distress ENT-normal hearing. normal lips, oropharynx Neck-no neck masses, no thyromegaly , trachea midline Lungs-cta b/l no wheezing or crackles Heart-s1 and s2 heard regular rate and rhythm, no murmurs Abdomen-soft, non tender , bowel sound active Extremities-no rash or deformity Neuro-alert and awake, no focal neurological deformity moves extremities Lab data as noted below. ASSESSMENT & PLAN: This is a 36 year old female with PMH of gastroparesis, Mendes's esophagus, mixed IBS, anxiety/depression, chronic back pain, insulin resistance, HTN, asthma presents with worsening nausea/vomiting and decreased PO intake as well as diarrhea. Nausea/vomiting Secondary to Gastroparesis patient with diagnosis of gastroparesis in July 2016 follows with GI symptom improved, diet advanced to full liquid -tolerating well Xray KUB shows -no evidence of obstruction appreciate GI input stable to be discharged home today cont out pt dose of Reglan schedule to see GI in few weeks Migraine Headache : chronic follows with Neurology in [place], [place] minimum improvement of symptom with Imitrex was treated with multiple modalities -triptans , Botox injections PRN Toradol ordered has Sumatriptan at home will continue to follow up with Neurology as out pt for further management Diarrhea Possibly secondary to IBS resolved stool c diff assay negative HTN on atenolol BP stable Anxiety/Depression continue home medications DVT ppx SCDs DISPOSITION Discharge home today Vital Signs: Date Time Temp Pulse Resp B/P Pulse Ox O2 Delivery O2 Flow Rate FiO2 09/11/16 15:31 37.2 73 16 109/62 97 Room Air 09/11/16 08:39 62 09/11/16 07:50 Room Air 09/11/16 07:35 36.6 57 18 106/67 95 Room Air 09/10/16 23:35 Room Air 09/10/16 20:40 68 108/74 Lab Results: Microbiology Results 09/10/16 C.difficile Toxin B Gene (PCR) - Final, Complete No C. difficile toxin B gene detected 09/10/16 Shiga Toxin Test, Received Pending 09/10/16 Stool Culture, Received Pending
[2016-09-11] MEDS ORDERED: KETO10TA PO (18:20)
--- NOTE | 2016-09-11 18:29 | Discharge Instructions ---
Discharge Instructions Admission Reason for Admission: Dehydration, Gastroparesis Discharge Discharge Diagnosis / Problem: GASTROPAREIS /MIGRAINE HEADACHE Discharge Goals Goal(s): Decrease discomfort Activity Recommendations Activity Limitations: resume your previous activity . Instructions / Follow-Up Instructions / Follow-Up GI FOLLOW UP ON 10/04/2016 @10:[address] Jovon Anderson MD Gastroenterology, [facility] FOLLOW UP WITH DR GENEVIEVE CASTILLO IN A WEEK , OFFICE WILL CALL WITH APPOINTMENT Current Hospital Diet Patient's current hospital diet: Full Liquid Diet Discharge Diet Recommended Diet: Low Fiber Diet Pending Studies Studies pending at discharge: no Laboratory Results Hemoglobin A1c Test 09/09/16 05:50 Range/Units Estimated Average Glucose 94 mg/dl Hemoglobin A1c 4.9 4.5-5.6 % Medical Emergencies . Who to Call and When: Medical Emergencies: If at any time you feel your situation is an emergency, please call 911 immediately. . Non-Emergent Contact Non-Emergency issues call your: Primary Care Provider . . "Provider Documentation" section prepared by Nikki Hercules. VTE Core Measure Inpt VTE Proph given/why not?: Halina Sales, SCD's [place] Drug Monitoring Program Search Results: no issues identified
--- NOTE | 2016-09-11 18:34 | Discharge Summary ---
Discharge Summary Admission Date: Sep 11, 2016 at 13:34 Discharge Date: Sep 11, 2016 Discharge Disposition: Home Principal Diagnosis: GASTROPARESIS /MIGRAINE HEADACHE Consultations: [facility] Medication Reconciliation New Medications: Ketorolac Tromethamine (Toradol) 10 Mg Tab 10 MG PO Q8 PRN for Pain, #30 TAB 3 Refills take with full stomach Continued Medications: Albuterol Sulfate (Proair Hfa) 108 Mcg/ Aer 2 PUFFS INH Q4-6HRS PRN for Chest Tightnes,Wheezing,SOB Amlodipine (Norvasc) 5 Mg Tab 5 MG PO DAILY, TAB Atenolol (Tenormin) 25 Mg Tab 25 MG PO QPM, TAB Baclofen (Baclofen) 20 Mg Tab 20 MG PO TID Beclomethasone Dipropionate (Qvar) 80 Mcg/ Aer 1 INHALER INH BID PRN for ALLERGIC REACTION Buspirone HCl (Buspirone HCl) 5 Mg Tab 5 MG PO DAILY, #20 Chlordiazepoxide/Clidinium (Librax 5MG/2.5MG) Cap 1 CAP PO QID PRN for , CAP Duloxetine HCl (Duloxetine HCl) 30 Mg Cap 90 MG PO DAILY Ergocalciferol (Vitamin D) 50,000 Interunit Cap 21069 INTER.UNIT PO WK TAKE THIS MEDICATION EVERY SATURDAY. Famotidine (Pepcid) 20 Mg Tab 20 MG PO DAILY, TAB Fish Oil ([place]-3) 1 Ea Cap 1 CAP PO DAILY Fluticasone Propionate (Nasal) (Flonase Allergy Relief) 50 Mcg/Act Spr 2 SPRAY YARELY BID Folic Acid (Folvite) 400 Mcg Tab 400 MCG PO DAILY Furosemide (Lasix) 20 Mg Tab 20 MG PO BID, TAB Hyoscyamine Sulfate (Hyoscyamine Sulfate) 0.125 Mg Tab 0.125 MG PO Q4H PRN for Abdominal Pain PLACED ON HOLD DUE TO NEW MEDICATION, Levothyroxine Sodium (Levothyroxine Sodium) 50 Mcg Tab 50 MCG PO DAILY Magnesium Gluconate (Magnesium Gluconate) 500 Mg Tab 250 MG PO DAILY Metformin HCl (Metformin HCl) 500 Mg Tab 500 MG PO BIDM Metoclopramide Hcl (Reglan) 5 Mg Tab 5 MG PO TID 30 MINUTES BEFORE MEALS. Multivitamins/Minerals (Mvi With Minerals) Tab 1 TAB PO DAILY, TAB Potassium Chloride Microencaps (Potassium Chloride Er) 20 Meq Tab 1 TAB PO BID for 90 Days, #180 TAB 3 Refills Promethazine (Phenergan Suppository) 25 Mg Supp 25 MG [place] Q6H PRN for Nausea Promethazine HCl (Promethazine HCl) 25 Mg Tab 25 MG PO HS PRN for Nausea or Migraine TAKE IF UNABLE TO SLEEP FROM NAUSEA/MIGRAINE Propranolol (Inderal) 10 Mg Tab 10 MG PO BID Tizanidine (Tizanidine HCl) 4 Mg Tab 4-8 MG PO HS Trazodone Hcl (Trazodone) 50 Mg Tab 50 MG PO HS Zolmitriptan (Zomig) 5 Mg Tab 2.5 MG PO PRN, TAB 2.5mg as needed, may repeat one dose two hours later, up to two times per week, Referrals At Discharge Follow up Referrals: Physician Referral - Within 1-2 Weeks with Genevieve Castillo D.O. Admission Information HPI (per Admitting provider): This is a 36 year old female with PMH of gastroparesis, Mendes's esophagus, mixed IBS, anxiety/depression, chronic back pain, insulin resistance, HTN, asthma presents with worsening nausea/vomiting and decreased PO intake as well as diarrhea. Patient was seen by GI last week; she has had upper GI series and has had delayed gastric emptying found in July of 2016; EGD was done showing Mendes's esophagus subsequently. She has been on Reglan with little improvement of her symptoms - she presented to the ER on 09/07/16; was sent home, and returned with similar symptoms. States she can't tolerate any liquids either. Denies fevers/chills. Physical Exam (per Admitting): General Appearance: + mild distress (nausea) Head: normocephalic, atraumatic Respiratory/Chest: lungs clear, normal breath sounds, no respiratory distress, no accessory muscle use Cardiovascular: regular rate, rhythm, no edema, no murmur Abdomen/GI: soft, + tenderness, + abnormal bowel sounds (decreased bowel sounds) Extremities/Musculoskelatal: normal capillary refill, no pedal edema Neurologic/Psych: no motor/sensory deficits, alert, + pertinent finding (+ anxious) Skin: normal color Hospital Course This is a 36 year old female with PMH of gastroparesis, Mendes's esophagus, mixed IBS, anxiety/depression, chronic back pain, insulin resistance, HTN, asthma presents with worsening nausea/vomiting and decreased PO intake as well as diarrhea. Nausea/vomiting Secondary to Gastroparesis patient with diagnosis of gastroparesis in July 2016 follows with GI symptom improved, diet advanced to full liquid -tolerating well Xray KUB shows -no evidence of obstruction appreciate GI input stable to be discharged home today cont out pt dose of Reglan schedule to see GI in few weeks Migraine Headache : chronic follows with Neurology in [place], [place] minimum improvement of symptom with Imitrex was treated with multiple modalities -triptans , Botox injections PRN Toradol ordered has Sumatriptan at home will continue to follow up with Neurology as out pt for further management Diarrhea Possibly secondary to IBS resolved stool c diff assay negative HTN on atenolol BP stable Anxiety/Depression continue home medications DVT ppx SCDs DISPOSITION Discharge home today Total time spent on discharge = 35 mins This includes examination of the patient, discharge planning, medication reconciliation, and communication with other providers. Discharge Instructions DI: Medical v4 Discharge Instructions Admission Reason for Admission: Dehydration, Gastroparesis Discharge Discharge Diagnosis / Problem: GASTROPARESIS /MIGRAINE HEADACHE Discharge Goals Goal(s): Decrease discomfort Activity Recommendations Activity Limitations: resume your previous activity . Instructions / Follow-Up Instructions / Follow-Up GI FOLLOW UP ON 10/04/2016 @10:[address] Jovon Anderson MD Gastroenterology, [facility] FOLLOW UP WITH DR GENEVIEVE CASTILLO IN A WEEK , OFFICE WILL CALL WITH APPOINTMENT Current Hospital Diet Patient's current hospital diet: Full Liquid Diet Discharge Diet Recommended Diet: Low Fiber Diet Pending Studies Studies pending at discharge: no Laboratory Results Hemoglobin A1c Test 09/09/16 05:50 Range/Units Estimated Average Glucose 94 mg/dl Hemoglobin A1c 4.9 4.5-5.6 % Medical Emergencies . Who to Call and When: Medical Emergencies: If at any time you feel your situation is an emergency, please call 911 immediately. . Non-Emergent Contact Non-Emergency issues call your: Primary Care Provider . . "Provider Documentation" section prepared by Nikki Hercules. VTE Core Measure Inpt VTE Proph given/why not?: Halina Sales SCD's [place] Drug Monitoring Program Search Results: no issues identified Additional Copies To Genevieve Castillo D.O. Lichtenstein,Jovon Corona M.D.
[2016-09-11 18:39] VITALS: BP 109/62; PULSE 73; TEMP 37.2; O2SAT 97
[2016-09-11] MEDS ORDERED: KETOROLAC TROMETHAMINE 10 MG TAB PO ONE (18:40)
--- NOTE | 2016-09-13 06:31 | EDITING REQUIRED CODING QUERY ---
CODING QUERY To promote full compliance with coding requirements relating to patient care, provider participation is requested in all cases of value advisor uncertainty. Please assist us with the question(s) below: Coding Question(s): Dr. Hercules, Ileus/SBO was documented in the chart, but not on the discharge summary. Please clarify if ileus/SBO was: ( x ) present and treated during this admission ( ) ruled out ( ) other, please explain Physician's Response(s): Pt had partial small bowel obstruction /ileus due to C diff colitis Which was resolved with conservative management with Iv fluids /Abx Thx Nikki Hercules Thank you for your time, FRANCESCA Young, SUMMER CLERK
[2017-01-29] MEDS ORDERED: LEVO50TA6 PO (00:25)
[2017-01-29] MEDS ORDERED: GLC500 PO (00:27)
[2017-01-29] MEDS ORDERED: AMLO-110 PO (04:08)
[2017-01-29] MEDS ORDERED: METO1TAB54 PO (09:03)
[2017-01-29] MEDS ORDERED: FURO-85 PO (09:03)
[2017-01-29] MEDS ORDERED: POTA20TA13 PO (09:03)
[2017-01-29] MEDS ORDERED: FAMO20TA9 PO (09:03)
[2017-01-29] MEDS ORDERED: BSP/5 PO (11:38)
[2017-01-29] MEDS ORDERED: CLID5CAP PO (13:23)
[2017-01-29] MEDS ORDERED: ATEN-173 PO (19:24)
[2017-01-29] MEDS ORDERED: FLUT0.15 NAE (19:26)
[2017-01-29] MEDS ORDERED: LVS125 PO (21:02)
[2017-01-29] MEDS ORDERED: CYM30 PO (21:02)
[2017-01-29] MEDS ORDERED: PROM25TA16 PO (21:02)
[2017-01-29] MEDS ORDERED: OMEG10007 PO (21:06)
[2017-01-29] MEDS ORDERED: ERGO1CAP41 PO (22:40)
== END 2016-09-11 20:00 | disposition home or self-care (01) | DRG 392 ==
LOC: ENRESERVTM → ENRESERVDT → C.EDB 23:48 → C.MSN 09-09 01:28 → OBSVTOIN 09-11 13:34
PROVIDERS: ADMIT Family Medicine; ATTEND Hospitalist
DX: K31.84 Gastroparesis (principal); K56.60 Unspecified intestinal obstruction; K56.7 Ileus, unspecified; A04.7 Enterocolitis due to Clostridium difficile; G43.909 Migraine, unspecified, not intractable, without status migrainosus; K22.70 Barrett's esophagus without dysplasia; K58.2 Mixed irritable bowel syndrome; I10 Essential (primary) hypertension; J45.909 Unspecified asthma, uncomplicated; E88.81 Metabolic syndrome and other insulin resistance; G89.29 Other chronic pain; M54.9 Dorsalgia, unspecified; F32.9 Major depressive disorder, single episode, unspecified; F41.9 Anxiety disorder, unspecified; Z79.51 Long term (current) use of inhaled steroids; Z79.84 Long term (current) use of oral hypoglycemic drugs; Z79.899 Other long term (current) drug therapy

== ENCOUNTER 2016-10-24 13:41 | Emergency (ER) | payer OTHER ==
[~2016-10-24] VITALS: Ht 167.6 cm; Wt 102.2 kg
[~2016-10-24 13:41] MED LIST changes: +KETO10TA PO
[2016-10-24 13:48] VITALS: TEMP 36.9; Ht 167.6 cm; Wt 102.2 kg
[2016-10-24] MEDS ORDERED: HYDROmorphone INJ 1 MG/ML SYR IV STA ×2 (14:58→16:01)
[2016-10-24] MEDS ORDERED: SODIUM CHLORIDE 0.9% 1000ML 1,000 ML IV STA (14:58)
[2016-10-24] MEDS ORDERED: ONDANSETRON INJ 2 MG/ML 2 ML VIAL IV STA (14:58)
[2016-10-24 15:22] LABS: HEMATOCRIT 35.8 % (37-47); MEAN CORPUSCULAR HEMOGLOBIN 30.7 pg (25-34); MEAN CORPUSCULAR HGB CONC 34.9 g/dl (32-36); MEAN PLATELET VOLUME 9.4 fL (7.4-10.4); PLATELET COUNT 256 K/uL (130-400); RED BLOOD COUNT 4.07 M/uL (4.2-5.4); WHITE BLOOD COUNT 8.52 K/uL (4.8-10.8)
[2016-10-24 15:28] LABS: URINE APPEARANCE CLEAR (CLEAR); URINE BILIRUBIN NEG (NEG); URINE COLOR YELLOW; URINE NITRITE NEG (NEG); UROBILINOGEN NEG (NEG); ZZUR CULT IF INDIC CLEAN CATCH NO
[2016-10-24 15:29] LABS: MANUAL MICROSCOPIC REQUIRED? NO; REVIEW REQ? NO
[2016-10-24 15:44] LABS: BUN/CREATININE RATIO 10.4 (10-20); CALCIUM 9.3 mg/dl (8.5-10.1); CREATININE 0.94 mg/dl (0.60-1.20); MAGNESIUM 2.1 mg/dl (1.8-2.4); POTASSIUM 4.2 mmol/L (3.5-5.1)
[2016-10-24 15:46] LABS: ALB/GLOB RATIO 1.1 (0.9-2)
[2016-10-24 15:49] LABS: BASO % 0.2 %; BASO ABS # 0.02 K/uL (0-0.2); COMPLETE YES; EOS % 1.6 %; IG% 0.4 %; LYMPH ABS # 1.53 K/uL (1.2-3.4); MONO % 6.2 %; NEUT % 73.6 %
--- NOTE | 2016-10-24 16:53 | DIAGNOSTIC IMAGING REPORT ---
THORACIC SPINE 3 VIEWS HISTORY: Trauma back pain s/p fall COMPARISON: None. FINDINGS: There is no fracture. No subluxation. Disc spaces are preserved. IMPRESSION: No fracture or subluxation within the thoracic spine. Electronically signed by: Ajay Beth M.D. 10/24/2016 4:52 PM Dictated Date/Time: 10/24/2016 4:52 PM
--- NOTE | 2016-10-24 16:55 | DIAGNOSTIC IMAGING REPORT ---
KUB CLINICAL HISTORY: abd pain pain. Nausea. COMPARISON STUDY: 09/11/2016 FINDINGS: The soft tissues, psoas shadows, renal outlines and intestinal gas pattern appear normal. There is no evidence for bowel obstruction. No abnormal abdominal calcifications are seen. IMPRESSION: Normal study. Electronically signed by: Ajay Beth M.D. 10/24/2016 4:54 PM Dictated Date/Time: 10/24/2016 4:53 PM
[2016-10-24] MEDS ORDERED: HYDROmorphone INJ 0.5 MG/0.5 ML SYR IV STA (17:09)
[2016-10-24 17:18] VITALS: BP 102/56; PULSE 88; O2SAT 90
--- NOTE | 2016-10-24 17:35 | EMERGENCY ROOM VISIT NOTE ---
History First contact with patient: 14:37 Chief Complaint: ABDOMINAL PAIN Stated Complaint: STOMACH PAIN, DEHYDRATED Nursing Triage Summary: Nausea, abd pain (center of abd) and back pain, started a few days ago and worse today. History of Present Illness The patient is a 36 year old female who presents to the Emergency Department by private vehicle for evaluation of her abdominal pain and possible dehydration. The patient reports a history of gastroparesis. She currently follows with Dr. Anderson of [facility]. She reports that she has been using her Reglan with minimal relief of symptoms. She reports that over the last 3 days she's had no bowel movement. She reports feeling weak as well as nauseated and vomiting. She denies any blood in her vomit or stool. Patient ports prior history of cholecystectomy. Patient has decreased her diet to liquids diet which has helped minimally. She is taking MiraLAX as well as minimal relief of symptoms. The patient reports a history of migraines. She describes a migraine headache today. This is not the worst of her life. She rates her current discomfort as a 7/10. Patient denies any blurry vision, dull vision, slurred speech, facial droop, unilateral weakness/numbness, chest pain, palpitations, fevers or chills, hematemesis, hematochezia, melena, hematuria, or dysuria. She denies any chance for . Patient also complains of a fall which occurred approximately 2 weeks ago. She landed on her back. She has continued pain. She denies any loss of control bowel/bladder saddle anesthesia. Review of Systems A complete 10-point Review of Systems was discussed with the patient, with pertinent positives and negatives listed in the History of Present Illness. All remaining Review of Systems questions can be considered negative unless otherwise specified. Past Medical/Surgical History Medical Problems: (1) Chronic neck pain (2) Depression (3) Gastroesophageal reflux disease (4) Hypothyroidism (5) Migraine (6) Partial small bowel obstruction (7) Polycystic ovaries (8) Right ovarian cyst Surgical Problems: (1) H/O sinus surgery (2) S/P cholecystectomy Family History Cancer Diabetes mellitus FHx: alcoholism Heart disease Hypertension Social History Smoking Status: Never Smoker Smokeless Tobacco Use: No Alcohol Use: none Drug Use: none Marital Status: single, in relationship Housing Status: lives with family Occupation Status: employed Current/Historical Medications Scheduled Amlodipine (Norvasc), 5 MG PO DAILY Atenolol (Tenormin), 25 MG PO QPM Baclofen (Baclofen), 20 MG PO TID Buspirone HCl (Buspirone HCl), 5 MG PO DAILY Duloxetine HCl (Duloxetine HCl), 90 MG PO DAILY Ergocalciferol (Vitamin D), 50,000 INTER.UNIT PO WK Famotidine (Pepcid), 20 MG PO DAILY Fish Oil ([place]-3), 1 CAP PO DAILY Fluticasone Propionate (Nasal) (Flonase Allergy Relief), 2 SPRAY YARELY BID Folic Acid (Folvite), 400 MCG PO DAILY Furosemide (Lasix), 20 MG PO BID Levothyroxine Sodium (Levothyroxine Sodium), 50 MCG PO DAILY Magnesium Gluconate (Magnesium Gluconate), 250 MG PO DAILY Metformin HCl (Metformin HCl), 500 MG PO BIDM Metoclopramide Hcl (Reglan), 5 MG PO TID Multivitamins/Minerals (Mvi With Minerals), 1 TAB PO DAILY Potassium Chloride Microencaps (Potassium Chloride Er), 1 TAB PO BID Propranolol (Inderal), 10 MG PO BID Tizanidine (Tizanidine HCl), 4-8 MG PO HS Trazodone Hcl (Trazodone), 50 MG PO HS Zolmitriptan (Zomig), 2.5 MG PO PRN Scheduled PRN Chlordiazepoxide/Clidinium (Librax 5MG/2.5MG), 1 CAP PO QID PRN for Hyoscyamine Sulfate (Hyoscyamine Sulfate), 0.125 MG PO Q4H PRN for Abdominal Pain Ketorolac Tromethamine (Toradol), 10 MG PO Q8 PRN for Pain Promethazine (Phenergan Suppository), 25 MG [place] Q6H PRN for Nausea Promethazine HCl (Promethazine HCl), 25 MG PO HS PRN for Nausea or Migraine Allergies Coded Allergies: Cephalexin (Verified Allergy, Mild, rash, 10/24/16) Morphine (Verified Allergy, Unknown, HIVES/ITCHING, N&V, 10/24/16) Topiramate (Verified Allergy, Unknown, neurological symptoms, 10/24/16) Physical Exam Vital Signs Date Time Temp Pulse Resp B/P Pulse Ox O2 Delivery O2 Flow Rate FiO2 10/24/16 17:18 88 16 102/56 90 Room Air 10/24/16 16:11 91 16 112/69 94 Room Air 10/24/16 15:24 88 16 101/70 95 Room Air 10/24/16 14:42 103 20 139/91 96 Room Air 10/24/16 13:48 36.9 102 18 126/78 99 Room Air Pain Rating (0-10): 7 Physical Exam VITAL SIGNS - Vital signs and nursing notes were reviewed. GENERAL - 36-year-old female appearing her stated age who is in no acute distress. Communicates well with provider and answers questions appropriately. HEAD - NC/AT. EYES - PERRL with EOMI bilaterally. Sclera anicteric. Palpebral conjunctiva pink and moist with no injection noted. EARS - No deformities of external structures noted on gross examination bilaterally. No pain elicited with palpation of the tragus bilaterally. External auditory canals without discharge or otorrhea. Tympanic membranes pearly back without retraction or bulging. NOSE - Midline and without cyanosis. No epistaxis or purulent drainage noted. Septum midline without deviation or septal hematoma noted. MOUTH/OROPHARYNX - Without perioral cyanosis. Buccal mucosa pink and moist and without leukoplakia. Tongue midline with equal elevation of palate bilaterally. No tonsillar hypertrophy, erythema, or exudates noted. Good dentition noted. NECK - Neck with FROM. Supple to palpation. No nuchal rigidity. LUNGS - Chest wall symmetric without accessory muscle use, intercostals retractions, or central cyanosis. Normal vesicular breath sounds CTA B/L. No wheezes, rales, or rhonchi appreciated. CARDIAC - RRR with S1/S2. No murmur, rubs, or gallops appreciated. ABDOMEN - Abdominal contour obese and without pulsations or visible masses. BS normoactive all four quadrants. No tenderness to palpation appreciated throughout. No guarding. No Rebound Tenderness. Negative Rovsing's. Negative Fabian's. No palpable masses, hepatosplenomegaly, or ascites noted. EXTREMITIES - No clubbing or peripheral cyanosis. No pretibial edema present. +3 /5 radial and dorsalis pedis pulses palpated throughout. NEUROLOGIC - Cranial nerves II through XII grossly intact. Sensory intact to light touch throughout. Negative [id number]. Negative Pronator Drift. PSYCH - A&Ox3 and cooperates fully with examiner. Pt is very pleasant and interacts well with examiner. Medical Decision & Procedures ER Provider Diagnostic Interpretation: Radiological imaging and reports were reviewed by myself. Radiologist's Interpretation as follows: KUB CLINICAL HISTORY: abd pain pain. Nausea. COMPARISON STUDY: 09/11/2016 FINDINGS: The soft tissues, psoas shadows, renal outlines and intestinal gas pattern appear normal. There is no evidence for bowel obstruction. No abnormal abdominal calcifications are seen. IMPRESSION: Normal study. THORACIC SPINE 3 VIEWS HISTORY: Trauma back pain s/p fall COMPARISON: None. FINDINGS: There is no fracture. No subluxation. Disc spaces are preserved. IMPRESSION: No fracture or subluxation within the thoracic spine. Laboratory Results 10/24/16 15:10 Red Blood Count 4.07, Mean Corpuscular Volume 88.0, Mean Corpuscular Hemoglobin 30.7, Mean Corpuscular Hemoglobin Concent 34.9, Mean Platelet Volume 9.4, Neutrophils (%) (Auto) 73.6, Lymphocytes (%) (Auto) 18.0, Monocytes (%) (Auto) 6.2, Eosinophils (%) (Auto) 1.6, Basophils (%) (Auto) 0.2, Neutrophils # (Auto) 6.27, Lymphocytes # (Auto) 1.53, Monocytes # (Auto) 0.53, Eosinophils # (Auto) 0.14, Basophils # (Auto) 0.02 10/24/16 15:10 Test 10/24/16 00:00 10/24/16 14:46 10/24/16 15:10 Urine Color YELLOW Urine Appearance CLEAR (CLEAR) Urine pH 5.0 (4.5-7.5) Urine Specific [place] 1.000 (1.000-1.030) Urine Protein NEG (NEG) Urine Glucose (UA) NEG (NEG) Urine Ketones NEG (NEG) Urine Occult Blood NEG (NEG) Urine Nitrite NEG (NEG) Urine Bilirubin NEG (NEG) Urine Urobilinogen NEG (NEG) Urine Leukocyte Esterase NEG (NEG) Urine Test NEG (NEG) White Blood Count 8.52 K/uL (4.8-10.8) Red Blood Count 4.07 M/uL (4.2-5.4) Hemoglobin 12.5 g/dL (12.0-16.0) Hematocrit 35.8 % (37-47) Mean Corpuscular Volume 88.0 fL (80-100) Mean Corpuscular Hemoglobin 30.7 pg (25-34) Mean Corpuscular Hemoglobin Concent 34.9 g/dl (32-36) Platelet Count 256 K/uL (130-400) Mean Platelet Volume 9.4 fL (7.4-10.4) Neutrophils (%) (Auto) 73.6 % Lymphocytes (%) (Auto) 18.0 % Monocytes (%) (Auto) 6.2 % Eosinophils (%) (Auto) 1.6 % Basophils (%) (Auto) 0.2 % Neutrophils # (Auto) 6.27 K/uL (1.4-6.5) Lymphocytes # (Auto) 1.53 K/uL (1.2-3.4) Monocytes # (Auto) 0.53 K/uL (0.11-0.59) Eosinophils # (Auto) 0.14 K/uL (0-0.5) Basophils # (Auto) 0.02 K/uL (0-0.2) RDW Standard Deviation 45.3 fL (36.4-46.3) RDW Coefficient of Variation 14.2 % (11.5-14.5) Immature Granulocyte % (Auto) 0.4 % Immature Granulocyte # (Auto) 0.03 K/uL (0.00-0.02) Anion Gap 11.0 mmol/L (3-11) Est Creatinine Clear Calc Drug Dose 99.8 ml/min Estimated GFR () 90.5 Estimated GFR (Non- 78.1 BUN/Creatinine Ratio 10.4 (10-20) Calcium Level 9.3 mg/dl (8.5-10.1) Magnesium Level 2.1 mg/dl (1.8-2.4) Total Bilirubin 0.4 mg/dl (0.2-1) Aspartate Amino Transf (AST/SGOT) 33 U/L (15-37) Alanine Aminotransferase (ALT/SGPT) 49 U/L (12-78) Alkaline Phosphatase 86 U/L (45-117) Total Protein 7.5 gm/dl (6.4-8.2) Albumin 3.9 gm/dl (3.4-5.0) Globulin 3.6 gm/dl (2.5-4.0) Albumin/Globulin Ratio 1.1 (0.9-2) Lipase 112 U/L (73-393) Medications Administered Medications (Trade) Dose Ordered Sig/Jean Claude Route Start Time Stop Time Status Last Admin Dose Admin Sodium Chloride (Nss 1000ml) 1,000 ml @ 999 mls/hr Q1H1M STAT IV 10/24/16 14:58 10/24/16 15:58 DC 10/24/16 15:23 999 MLS/HR Ondansetron HCl (Zofran Inj) 4 mg NOW STAT IV 10/24/16 14:58 10/24/16 15:03 DC 10/24/16 15:23 4 MG Hydromorphone HCl (Dilaudid Inj) 1 mg NOW STAT IV 10/24/16 14:58 10/24/16 15:03 DC 10/24/16 15:23 1 MG Hydromorphone HCl (Dilaudid Inj) 1 mg NOW STAT IV 10/24/16 16:01 10/24/16 16:02 DC 10/24/16 16:11 1 MG Hydromorphone HCl (Dilaudid Inj) 0.5 mg NOW STAT IV 10/24/16 17:09 10/24/16 17:10 DC 10/24/16 17:17 0.5 MG ED Course Patient was seen and evaluated by myself. Labs were drawn, saline lock in place. The patient was hydrated with a 1000 mL normal saline bolus. She received 1 mg Dilaudid and 4 mg Zofran intravenously. Thoracic spine x-ray and KUB were obtained. Laboratory results demonstrate no acute leukocytosis, worrisome anemia, or bandemia. The patient has no significant electrolyte abnormalities. Urinalysis does not state. Patient's urine was negative. Patient was reevaluated and has persistent pain. Imaging results as above. Laboratory results and imaging studies were reviewed with the patient who acknowledges understanding. Patient feels much better at this time. She was provided an additional 0.5 mg Dilaudid for pain. The patient was educated on worrisome symptoms for return visit to the emergency department. Patient discharged home afebrile and in good condition. Medical Decision Given the patient's presentation and stated complaints, I did elect to perform the above-mentioned workup. I am familiar with this patient for multiple previous visits. She presents today complaining of decreased bowel movement, nausea, vomiting, and migraine. She has no fever or leukocytosis. Her exam is otherwise unremarkable. Her abdomen is soft and nontender to palpation. She has no focal neurological deficits. Her pain was exactly controlled the emergency setting. The patient was encouraged to continue to follow with her specialists from today's visit. She was educated on worrisome symptoms for return visit to the emergency department. Patient discharged home afebrile and in good condition. In the evaluation and treatment of this patient, the following differential diagnoses were considered: Migraine Headache, Intracranial Hemorrhage, Subdural Hematoma, Subarachnoid Hemorrhage, Cerebral Aneurysm, Temporal/Giant Cell Arteritis, Tension Headache, Meningitis, Encephalitis, Hydrocephalus, Gastritis , gastritis, bowel perforation, retrocecal appendicitis, UTI, , or somatization. Impression Primary Impression: Epigastric abdominal pain Additional Impression: Migraine Departure Information Dispostion Home / Self-Care Condition GOOD Referrals Melania Zhou D.O. (PCP) Patient Instructions My [facility] Additional Instructions You have been treated in the Emergency Department your Abdominal Pain and Migraine. For pain control, you can use the following [id number] medicines (if >12 yo): - Regular strength (325mg/tab) Tylenol (acetaminophen) 2 tabs every 4-6 hours as needed. Do not exceed 12 tablets in a 24 hour period. Avoid taking more than 4 grams (4000 mg) of Tylenol per day. This includes any other sources of acetaminophen you may take on a regular basis. - Regular strength (200 mg/tab) Advil (ibuprofen) 1-2 tabs every 4-6 hours as needed. Do not exceed a dose of 3200 mg per day. Drink plenty of water and stay well hydrated. As with any trip to the Emergency Department, you should follow-up with your Primary Care Provider from today's visit. Return to the emergency department if your symptoms persist despite treatment plan outlined above or if the following symptoms occur: increased fevers, chills , worsening nausea/vomiting, blood in your stool or urine. Problem Qualifiers Additional Impression: Migraine Migraine type: other Status migrainosus presence: without status migrainosus Intractability: not intractable Qualified Codes: G43.809 - Other migraine, not intractable, without status migrainosus
[2017-01-29] MEDS ORDERED: LEVO50TA6 PO (00:25)
[2017-01-29] MEDS ORDERED: GLC500 PO (00:27)
[2017-01-29] MEDS ORDERED: AMLO-110 PO (04:08)
[2017-01-29] MEDS ORDERED: METO1TAB54 PO (09:03)
[2017-01-29] MEDS ORDERED: FURO-85 PO (09:03)
[2017-01-29] MEDS ORDERED: POTA20TA13 PO (09:03)
[2017-01-29] MEDS ORDERED: FAMO20TA9 PO (09:03)
[2017-01-29] MEDS ORDERED: BSP/5 PO (11:38)
[2017-01-29] MEDS ORDERED: CLID5CAP PO (13:23)
[2017-01-29] MEDS ORDERED: ATEN-173 PO (19:24)
[2017-01-29] MEDS ORDERED: FLUT0.15 NAE (19:26)
[2017-01-29] MEDS ORDERED: LVS125 PO (21:02)
[2017-01-29] MEDS ORDERED: CYM30 PO (21:02)
[2017-01-29] MEDS ORDERED: PROM25TA16 PO (21:02)
[2017-01-29] MEDS ORDERED: OMEG10007 PO (21:06)
[2017-01-29] MEDS ORDERED: ERGO1CAP41 PO (22:40)
== END 2016-10-24 17:48 | disposition home or self-care (01) ==
LOC: C.EDB 13:43
DX: R10.13 Epigastric pain (principal); G43.909 Migraine, unspecified, not intractable, without status migrainosus; E03.9 Hypothyroidism, unspecified; K21.9 Gastro-esophageal reflux disease without esophagitis; F32.9 Major depressive disorder, single episode, unspecified; Z90.49 Acquired absence of other specified parts of digestive tract; Z98.890 Other specified postprocedural states; Z80.9 Family history of malignant neoplasm, unspecified; Z83.3 Family history of diabetes mellitus; Z82.49 Family history of ischemic heart disease and other diseases of the circulatory system

== ENCOUNTER 2016-10-26 18:35 | Emergency (ER) | payer OTHER ==
[~2016-10-26] VITALS: Ht 167.6 cm; Wt 98.2 kg
[~2016-10-26 18:35] MED LIST changes: -ALBU1AER9 INH; -BECL0.3A INH
[2016-10-26 18:36] VITALS: Ht 167.6 cm; Wt 98.2 kg
[2016-10-26] MEDS ORDERED: SODIUM CHLORIDE 0.9% 1000ML 1,000 ML IV STA (21:29)
[2016-10-26] MEDS ORDERED: METOCLOPRAMIDE HCL INJ 5 MG/ML 2 ML VIAL IV STA (21:29)
--- NOTE | 2016-10-26 21:34 | EMERGENCY ROOM VISIT NOTE ---
History Report prepared by Dion: Kirti Nino Under the Supervision of: Dr. Corie Hendrix M.D. First contact with patient: 21:21 Chief Complaint: ABDOMINAL PAIN Stated Complaint: STOMACH,CANT KEEP ANYTHING DOWN,MIGRAINE Nursing Triage Summary: Was here the other day, was called for follow up by Bree Jett and was told if she did not feel better, to return to ED. Migraine, cant keep anything down, abd pain that radaites into legs. KUB was unremarkable. History of Present Illness The patient is a 36 year old female who presents to the Emergency Room with complaints of persistent abdominal pain that started a few days ago. She rates her pain a 7/10 in severity. She states that this pain radiates down her legs. Associated symptoms include nausea and vomiting. The patient was evaluated in the ED 3 days ago where a KUB was performed. This was unremarkable. The patient was apparently contacted by nursing by call-back and advised to come back into the ED if she was still experiencing this pain. The patient denies diarrhea and fevers. She does add that she is also experiencing a migraine today. Source of History: patient Onset: a few days ago Position: abdomen Symptom Intensity: 7/10 Modifying Factors (Relieving): other (None) Associated Symptoms: + nausea, + vomiting, No diarrhea, No fevers Review of Systems See HPI for pertinent positives & negatives. A total of 10 systems reviewed and were otherwise negative. Past Medical & Surgical Medical Problems: (1) Chronic neck pain (2) Depression (3) Gastroesophageal reflux disease (4) Hypothyroidism (5) Migraine (6) Partial small bowel obstruction (7) Polycystic ovaries (8) Right ovarian cyst Surgical Problems: (1) H/O sinus surgery (2) S/P cholecystectomy Family History Cancer Diabetes mellitus FHx: alcoholism Heart disease Hypertension Social History Smoking Status: Never Smoker Alcohol Use: none Drug Use: none Marital Status: single, in relationship Housing Status: lives with family Occupation Status: unemployed Current/Historical Medications Scheduled Amlodipine (Norvasc), 5 MG PO DAILY Atenolol (Tenormin), 25 MG PO QPM Baclofen (Baclofen), 20 MG PO TID Buspirone HCl (Buspirone HCl), 5-10 MG PO UD Duloxetine HCl (Duloxetine HCl), 90 MG PO DAILY Ergocalciferol (Vitamin D), 50,000 INTER.UNIT PO WK Famotidine (Pepcid), 20 MG PO DAILY Fish Oil ([place]-3), 1 CAP PO DAILY Fluticasone Propionate (Nasal) (Flonase Allergy Relief), 2 SPRAY YARELY BID Folic Acid (Folvite), 400 MCG PO DAILY Furosemide (Lasix), 20 MG PO BID Levothyroxine Sodium (Levothyroxine Sodium), 50 MCG PO DAILY Magnesium Gluconate (Mag-G), 125 MG PO DAILY Metformin HCl (Metformin HCl), 500 MG PO BIDM Metoclopramide Hcl (Reglan), 5 MG PO TID Multivitamins/Minerals (Mvi With Minerals), 1 TAB PO DAILY Potassium Chloride Microencaps (Potassium Chloride Er), 1 TAB PO BID Propranolol (Inderal), 10 MG PO BID Tizanidine (Tizanidine HCl), 4-8 MG PO HS Trazodone Hcl (Trazodone), 50 MG PO HS Zolmitriptan (Zolmitriptan), 2.5-5 MG PO UD Scheduled PRN Chlordiazepoxide/Clidinium (Librax 5MG/2.5MG), 1 CAP PO QID PRN for Hyoscyamine Sulfate (Hyoscyamine Sulfate), 0.125 MG PO Q4H PRN for Abdominal Pain Ketorolac Tromethamine (Toradol), 10 MG PO Q8 PRN for Pain Promethazine (Phenergan Suppository), 25 MG [place] Q6H PRN for Nausea Promethazine HCl (Promethazine HCl), 25 MG PO HS PRN for Nausea or Migraine Allergies Coded Allergies: Cephalexin (Verified Allergy, Mild, rash, 10/26/16) Morphine (Verified Allergy, Unknown, HIVES/ITCHING, N&V, 10/26/16) Topiramate (Verified Allergy, Unknown, neurological symptoms, 10/26/16) Physical Exam Vital Signs Date Time Temp Pulse Resp B/P Pulse Ox O2 Delivery O2 Flow Rate FiO2 10/27/16 00:01 36.9 76 16 128/70 98 10/27/16 00:01 76 16 128/70 98 Room Air 10/26/16 22:30 76 16 128/70 98 Room Air 10/26/16 20:48 76 16 130/74 98 Room Air 10/26/16 18:36 36.9 116 18 122/89 94 Room Air Physical Exam Vital signs reviewed. General: Well-appearing female, in no significant distress. HEENT: No scleral icterus, PERRLA, neck supple. Atraumatic. Cardiovascular: Regular rate and rhythm, no extra sounds. Pulmonary: Clear to auscultation bilaterally, normal work of breathing. Abdomen: Obese, diffusely tender without rebound or guarding, positive bowel sounds. Musculoskeletal: Atraumatic, no peripheral edema. Neurologic: Patient awake alert and oriented x 3, full strength in all 4 extremities. Cranial nerves 2 through 12 grossly intact. Skin: Warm, dry, no rash v Medical Decision & Procedures Laboratory Results 10/26/16 21:30 Red Blood Count 4.49, Mean Corpuscular Volume 89.8, Mean Corpuscular Hemoglobin 31.4, Mean Corpuscular Hemoglobin Concent 35.0, Mean Platelet Volume 9.8, Neutrophils (%) (Auto) 74.4, Lymphocytes (%) (Auto) 18.5, Monocytes (%) (Auto) 4.9, Eosinophils (%) (Auto) 1.5, Basophils (%) (Auto) 0.3, Neutrophils # (Auto) 8.29, Lymphocytes # (Auto) 2.06, Monocytes # (Auto) 0.55, Eosinophils # (Auto) 0.17, Basophils # (Auto) 0.03 10/26/16 21:30 Test 10/26/16 21:30 10/26/16 21:50 White Blood Count 11.15 K/uL (4.8-10.8) Red Blood Count 4.49 M/uL (4.2-5.4) Hemoglobin 14.1 g/dL (12.0-16.0) Hematocrit 40.3 % (37-47) Mean Corpuscular Volume 89.8 fL (80-100) Mean Corpuscular Hemoglobin 31.4 pg (25-34) Mean Corpuscular Hemoglobin Concent 35.0 g/dl (32-36) Platelet Count 301 K/uL (130-400) Mean Platelet Volume 9.8 fL (7.4-10.4) Neutrophils (%) (Auto) 74.4 % Lymphocytes (%) (Auto) 18.5 % Monocytes (%) (Auto) 4.9 % Eosinophils (%) (Auto) 1.5 % Basophils (%) (Auto) 0.3 % Neutrophils # (Auto) 8.29 K/uL (1.4-6.5) Lymphocytes # (Auto) 2.06 K/uL (1.2-3.4) Monocytes # (Auto) 0.55 K/uL (0.11-0.59) Eosinophils # (Auto) 0.17 K/uL (0-0.5) Basophils # (Auto) 0.03 K/uL (0-0.2) RDW Standard Deviation 46.7 fL (36.4-46.3) RDW Coefficient of Variation 14.4 % (11.5-14.5) Immature Granulocyte % (Auto) 0.4 % Immature Granulocyte # (Auto) 0.05 K/uL (0.00-0.02) Anion Gap 11.0 mmol/L (3-11) Est Creatinine Clear Calc Drug Dose 103.2 ml/min Estimated GFR () 96.6 Estimated GFR (Non- 83.4 BUN/Creatinine Ratio 7.9 (10-20) Calcium Level 9.6 mg/dl (8.5-10.1) Total Bilirubin 0.4 mg/dl (0.2-1) Direct Bilirubin mg/dl (0-0.2) Aspartate Amino Transf (AST/SGOT) 37 U/L (15-37) Alanine Aminotransferase (ALT/SGPT) 56 U/L (12-78) Alkaline Phosphatase 94 U/L (45-117) Total Protein 8.8 gm/dl (6.4-8.2) Albumin 4.4 gm/dl (3.4-5.0) Globulin 4.4 gm/dl (2.5-4.0) Albumin/Globulin Ratio 1.0 (0.9-2) Lipase 87 U/L (73-393) Chemistry Specimen Hemolysis Urine Color YELLOW Urine Appearance CLOUDY (CLEAR) Urine pH 7.5 (4.5-7.5) Urine Specific [place] 1.013 (1.000-1.030) Urine Protein NEG (NEG) Urine Glucose (UA) NEG (NEG) Urine Ketones NEG (NEG) Urine Occult Blood NEG (NEG) Urine Nitrite NEG (NEG) Urine Bilirubin NEG (NEG) Urine Urobilinogen NEG (NEG) Urine Leukocyte Esterase NEG (NEG) Urine WBC (Auto) 1-5 /hpf (0-5) Urine RBC (Auto) 0-4 /hpf (0-4) Urine Hyaline Casts (Auto) 0 /lpf (0-5) Urine Epithelial Cells (Auto) >30 /lpf (0-5) Urine Bacteria (Auto) NEG (NEG) Urine Yeast (Auto) (NONE PRSENT) Urine Test NEG (NEG) Date/Time Source Procedure Growth Status 10/26/16 21:50 Urine , Clean Catch Urine Culture - Final MORE THAN THREE TYPES OF ORGANISMS MT... Complete Laboratory results per my review. Medications Administered Medications (Trade) Dose Ordered Sig/Jean [place] Route Start Time Stop Time Status Last Admin Dose Admin Metoclopramide HCl 10 mg 10 mg NOW STAT IV 10/26/16 21:29 10/26/16 21:32 DC 10/26/16 21:54 10 MG Sodium Chloride (Nss 1000ml) 1,000 ml @ 999 mls/hr Q1H1M STAT IV 10/26/16 21:29 10/26/16 22:29 DC 10/26/16 21:53 999 MLS/HR Hydromorphone HCl (Dilaudid Inj) 1 mg NOW STAT IV 10/26/16 22:51 10/26/16 22:52 DC 10/26/16 23:51 1 MG Ondansetron HCl (Zofran Inj) 4 mg NOW STAT IV 10/26/16 22:51 10/26/16 22:52 DC 10/26/16 23:51 4 MG ED Course 2127: Past medical records reviewed. Over the last year, the patient has had 3 CT scans and 5 abdominal x-rays performed with no clear evidence for bowel obstruction. Her most recent x-ray was two days ago. The patient was evaluated in room C4. A complete history and physical examination was performed. 2128: Ordered Sodium Chloride 1,000 ml @ 999 mls/hr IV, Reglan Injection 10 mg IV. 2250: Ordered Zofran Injection 4 mg IV, Dilaudid Injection 1 mg IV. 2314: Upon reevaluation, the patient appeared to have improvement of her symptoms. I discussed findings with the patient. She verbalized agreement of the treatment plan. She was discharged home. Medical Decision DDx: appendicitis, diverticulitis, PUD, biliary pathology, UTI, pancreatitis, obstruction, mesenteric ischemia, aortic pathology, infections, inflammatory bowel disease, renal colic, as well as others were entertained. This pt was evaluated and appeared to be in some discomfort. PE is unrevealing. There is no tympany to percussion. Pt was medicated with IV reglan and hydrated with NSS. Lab work reveals a mild leukocytosis. The remainder of the labwork is negative. Pt continued to c/o discomfort. She was medicated with IV dialudid and zofran. She was d/c to care of the friend. Pt was upset that no further testing was performed, however she has had multiple CT in 2016 and XR 2 days ago negative for obstruction. At this time I believe sx are r/t gastroparesis and not likely high grade SBO. Additional radiation is not in this pt's favor unless she is having serious clinical findings. She was made aware of this and d/c. She will return to the ED for worsening of symptoms or any medical concerns. Impression Primary Impression: Gastroparesis Additional Impression: Headache Scribe Attestation The scribe's documentation has been prepared under my direction and personally reviewed by me in its entirety. I confirm that the note above accurately reflects all work, treatment, procedures, and medical decision making performed by me. Departure Information Dispostion Home / Self-Care Referrals Melania Zhou D.O. (PCP) Forms Call Back Authorization, HOME CARE DOCUMENTATION FORM, IMPORTANT VISIT INFORMATION Patient Instructions My [facility] Additional Instructions Diagnosis: Gastroparesis, headache Continue medications as prescribed. Drink plenty of clear fluids. Follow-up with your physician this week for reevaluation. Return to the ER for worsening of symptoms or any medical concerns. Problem Qualifiers Additional Impression: Headache Headache type: unspecified Headache chronicity pattern: acute headache Intractability: not intractable Qualified Codes: R51 - Headache
[2016-10-26 21:45] LABS: BASO % 0.3 %; BASO ABS # 0.03 K/uL (0-0.2); COMPLETE YES; EOS % 1.5 %; HEMATOCRIT 40.3 % (37-47); IG% 0.4 %; LYMPH % 18.5 %; LYMPH ABS # 2.06 K/uL (1.2-3.4); MEAN CELL VOLUME 89.8 fL (80-100); MEAN CORPUSCULAR HEMOGLOBIN 31.4 pg (25-34); MEAN PLATELET VOLUME 9.8 fL (7.4-10.4); MONO % 4.9 %; NEUT % 74.4 %; PLATELET COUNT 301 K/uL (130-400); RED BLOOD COUNT 4.49 M/uL (4.2-5.4); WHITE BLOOD COUNT 11.15 K/uL (4.8-10.8)
[2016-10-26 22:12] LABS: URINE APPEARANCE CLOUDY (CLEAR); URINE BILIRUBIN NEG (NEG); URINE COLOR YELLOW; URINE EPITHELIAL CELL AUTO >30 /lpf (0-5); URINE NITRITE NEG (NEG); URINE PH 7.5 (4.5-7.5); URINE SPECIFIC GRAVITY 1.013 (1.000-1.030); UROBILINOGEN NEG (NEG); ZZUR CULT IF INDIC CLEAN CATCH YES
[2016-10-26 22:14] LABS: ALKALINE PHOSPHATASE 94 U/L (45-117); ALT/SGPT 56 U/L (12-78); AST/SGOT 37 U/L (15-37); BLOOD UREA NITROGEN 7 mg/dl (7-18); BUN/CREATININE RATIO 7.9 (10-20); CALCIUM 9.6 mg/dl (8.5-10.1); CARBON DIOXIDE 22 mmol/L (21-32); CHLORIDE 102 mmol/L (98-107); CREATININE 0.89 mg/dl (0.60-1.20); GLUCOSE 98 mg/dl (70-99); POTASSIUM 4.2 mmol/L (3.5-5.1); SODIUM 135 mmol/L (136-145)
[2016-10-26 22:14] LABS: MANUAL MICROSCOPIC REQUIRED? NO; REVIEW REQ? YES
[2016-10-26] MEDS ORDERED: ONDANSETRON INJ 2 MG/ML 2 ML VIAL IV STA (22:51)
[2016-10-26] MEDS ORDERED: HYDROmorphone INJ 1 MG/ML SYR IV STA (22:51)
[2016-10-27 00:01] VITALS: BP 128/70; PULSE 76; TEMP 36.9; O2SAT 98
[2017-01-29] MEDS ORDERED: LEVO50TA6 PO (00:25)
[2017-01-29] MEDS ORDERED: GLC500 PO (00:27)
[2017-01-29] MEDS ORDERED: AMLO-110 PO (04:08)
[2017-01-29] MEDS ORDERED: FURO-85 PO (09:03)
[2017-01-29] MEDS ORDERED: METO1TAB54 PO (09:03)
[2017-01-29] MEDS ORDERED: FAMO20TA9 PO (09:03)
[2017-01-29] MEDS ORDERED: POTA20TA13 PO (09:03)
[2017-01-29] MEDS ORDERED: BSP/5 PO (11:38)
[2017-01-29] MEDS ORDERED: CLID5CAP PO (13:23)
[2017-01-29] MEDS ORDERED: ATEN-173 PO (19:24)
[2017-01-29] MEDS ORDERED: FLUT0.15 NAE (19:26)
[2017-01-29] MEDS ORDERED: CYM30 PO (21:02)
[2017-01-29] MEDS ORDERED: LVS125 PO (21:02)
[2017-01-29] MEDS ORDERED: PROM25TA16 PO (21:02)
[2017-01-29] MEDS ORDERED: OMEG10007 PO (21:06)
[2017-01-29] MEDS ORDERED: ERGO1CAP41 PO (22:40)
== END 2016-10-27 00:30 | disposition home or self-care (01) ==
LOC: C.EDB 18:36 → C.EDC 10-27 00:30
DX: K31.84 Gastroparesis (principal); R51 Headache; M54.2 Cervicalgia; G89.29 Other chronic pain; F32.9 Major depressive disorder, single episode, unspecified; K21.9 Gastro-esophageal reflux disease without esophagitis; E03.9 Hypothyroidism, unspecified; Z79.899 Other long term (current) drug therapy

== ENCOUNTER → 2016-12-26 | Outpatient (CLI) | payer OTHER ==
[~2016-12-26] MED LIST changes: +AMLO-110 PO; +ATEN-173 PO; +ATR25 PO; +BENZ10LO2 PO; +BSP/5 PO; +CLID5CAP PO; +CYM30 PO; +ERGO500011 PO; +FAMO20TA9 PO; +FLUT0.15 NAE; +FOLI400T41 PO; +FRCT/ PO; +FURO-85 PO; +GLC500 PO; +LEVO50TA6 PO; +LRS20 PO; +LVS125 PO; +MAGN250T11 PO; -MAGN500T3 PO; +METO1TAB54 PO; +MGNG500 PO; +MULT-513 PO; +NMN10 PO; +OMEG10007 PO; +PANT40TA PO; +POTA20TA13 PO; +PRED50TA PO; +PROM1SUP19 PR; +PROM25TA16 PO; +PROP10TA7 PO; +QVRINH80 INH; +SENN-65 PO; +TRAZ50TA35 PO; +ZNF/4 PO; +ZOLM1TAB11 PO; -ZOLM1TAB3 PO
--- NOTE | 2016-12-27 05:57 | PAP/PSG TECHNICIAN REPORT ---
[facility] Knocker Out Polysomnogram Report Study name: None Report date: 12/27/2016 Study date: 12/26/2016 Referring Physician: Al Robledo M.D. Name: ELIANA KAROLYN Ernie Interpreting Physician: Dereck Robledo M.D. Date of : 1980 Knocker Out: Nessa Shell [facility]. Sex: Female Age: 36 StudyType: PSG Weight: 215 lbs 17 inches Height: 36 years, Height 5' 6" Neck Circum: BMI: 34.7 Medications: Levoxyl 50 mcg, Glucophage 500 mg, Atenolol 25 mg, Zanaflex 4 mg, Reglan 5 mg, Vitamin D 62718, Buspar 5 mg, Lasix 20 mg, Baclofen 20 mg, Folic Acid 400 MCG, Amlodipine 5 mg, Levsin 0.125 mg, Zomig 5 mg, Cymbalta 30 mg, Flonase 50 mcg, saline spray, Trazodone 50 mg, Librax 2.5-5 mg, Phenergan 25 mg, QVAR 80 mcg, Albuterol 108(90 base), Ondansetron 8 mg, [place] 3, Multi Vitamins, Potassium Chloride 10 MEQ Patient History 36 yr. old female here for a possible split night sleep study in room 4. Patient complains of SO and SM insomnia and unrefreshing sleep, mild snoring and her 02 dropped while in the [facility] ER. Patients [place] sleepiness scale score is 2/24. Parameters Monitored NPSG: E1-M2, E2-M1, Fp1-M2, Fp2-M1, F3-M2, F4-M2, F4-M1, C3-M2, C4-M2, C4-M1, O1-M2, O2-M2, O2-M1, T3-M2, T4-M1, P3-M2, P4-M1, CHIN1, CHIN2, HR, EKG, Legs, PFLOW, SNOR, FLOW, CFLOW, Tidal Volume, THOR, ABDO, SpO2, PLTH, CPRESS, ETCO2 Wave, ETCO2, pH Sleep Architecture Sleep Stages Time at Lights Off 10:11:51 PM STAGES Time (min.) TST (%) Time at Lights On 5:36:21 AM Wake 16.5 -- Total Recording Time (TRT) 444.50 min. N1 13.5 3 Total Sleep Period (TSP) 432.0 min. N2 170.5 40 Total Sleep Time (TST) 428.0min. N3 194.0 45 Awake Time 16.5 min. REM 50.0 12 Wake after Sleep Onset 4.0 min. Sleep Efficiency (SE) 96 % Sleep Onset Latency (MINDY) 12.5 min. Number of Stage 1 Shifts None Awakenings 7 Stage Changes 71 Number of REM periods 5 REM 50.0 12 REM Latency 185.5 min. NREM 378.0 88 Body Position Analysis Supine Right Left Side Prone Vertical Total Sleep Time (min.) 351.5 91.5 0.0 91.50 0.0 0.7 Total Sleep Time (%) 79% 21% 0% 21 0% N/A% Total Sleep Time REM (min.) 50.0 0.0 0.0 None 0.0 0.0 Total Sleep Time NREM (min.) 286.5 91.5 0.0 None 0.0 0.0 Intermittent Wake (min.) 15.0 0.8 0.0 None 0.0 0.7 Total Sleep Period (%) 79% None None None None None Arousals Myoclonus (PLM) * Events Count Index Events Count Index Spontaneous 11 2 Events Awake (PLMW) 10 36.4 Respiratory 3 0.4 Events Asleep w/ Arousal (PLMA) 11 1.5 PLM 11 2 Events Asleep w/o Arousal (PLMS) 299 41.9 Snoring 23 3 Total Asleep 310 43.5 Total 48 7 Total 320 43 Respiratory Analysis * CA OA MA CH H RERA Total Count 0 0 0 0 22 0 22 Index 0.0 0.0 0.0 0 3.1 0 3.1 Mean Duration 0.0 0.0 0.0 0.00 22.8 0.0 22.8 Longest Duration 0.0 0.0 0.0 0.00 0.0 0.0 33.4 Respiratory Event Summary Total Supine ~Supine Right Left Prone REM NREM Apneas Count 0 0 0 0 N/A N/A 0 0 Index 0.0 0 0 0.0 N/A N/A 0 0 Hypopneas (4% Desat) Count 22 20 2 2 N/A N/A 9 13 Index 3.1 3.6 1 1.3 N/A N/A 10.8 2.1 Apneas & All Hypopneas Count 22 20 2 2 N/A N/A 9 13 Index 3.1 4 1 1 N/A N/A 10.8 2.1 Respiratory Events (Labor Relations Manager+All Hyp+RERA) Count 22 20 2 2 N/A N/A 9 13 Index 3.1 4 1 1.3 N/A N/A 10.8 2.1 Respiratory Related Arousal Count 3 20 1 1 N/A N/A 0 3 Index 0.4 0 1 1 N/A N/A 0 0 Snoring Analysis Supine Right Left Prone REM NREM Total Snore duration 41.8 min Snores count 2,301 321 N/A N/A 74 2,548 2,622 Snore mean duration 1.0 Sec Snores index 410 210 N/A N/A 88.8 404.4 367.6 TST with snoring (%) 9.8% Desaturation Event Summary: Minimum %SpO2 Event Count Mean/Min/Max Duration(sec.) Desaturation Index % Time In Bed > 90 22 23.1 / 5.3 / 59.0 3.9 75.9 86 - 90 4 19.1 / 10.5 / 36.5 2.2 24.1 81 - 85 0 N/A 0.0 0.0 76 - 80 0 N/A 0.0 0.0 71 - 75 0 N/A 0.0 0.0 66 - 70 0 N/A 0.0 0.0 61 - 65 0 N/A 0.0 0.0 56 - 60 0 N/A 0.0 0.0 51 - 55 0 N/A 0.0 0.0 < 50 0 N/A 0.0 0.0 Total REM NREM Awake <50% 0.0 min. 0.0 min. 0.0 min. 0.0 min. 51 - 60% 0.0 min. 0.0 min. 0.0 min. 0.0 min. 61 - 70% 0.0 min. 0.0 min. 0.0 min. 0.0 min. 71 - 80% 0.0 min. 0.0 min. 0.0 min. 0.0 min. 81 - 90% 107.2 min. 5.4 min. 96.2 min. 5.6 min. 91 - 100% 337.2 min. 44.6 min. 281.8 min. 10.8 min. Average 92 92 92 91 Minimum SpO2 85 85 85 89 Desaturation Event Index 3.2 10.8 2.2 3.6 # Desat. Events below 89% 9 3 6 N/A Time(%) with Saturation below 89% 4.3 0.2 4.1 0.0 Time(min.) with Saturation below 89% 19.1 0.8 18.3 0.0 Time (mins) REM (mins) NREM (mins) % of TST SpO2 Below 90% 19 8 N11 12.6 SpO2 Below 88% 4 0 0 1 Heart Rate Analysis Min (bpm) Max (bpm) Average (bpm) Awake 63 110 87 NREM 61 102 78 REM 61 92 76 Overall 61 102 78 Supplemental O2 Values Minimum O2 level: None Value Start Time End Time Knocker Out Comments MS. Everett slept in the right and supine positions. No cardiac arrhythmia. PLMs noted. No bruxism noted. Snoring was noted and scored as a 2 on a scale of 0 through 5. (0=no snoring, 5=snoring loud enough to be heard through a closed door or down the [address]or[address] way) MS. Everett did not wake to use the restroom during the night. MS. Everett stated, that was a normal night. The final report will be interpreted and signed by a sleep physician. The completed physician report will then be placed in the patient medical record. Therapy (cm H2O) 0 TIB (min.) 444.5 TST (min.) 428.0 Sleep Onset (min.) 12.5 REM Onset From Sleep (min.) 185.5 Sleep Efficiency % 96 Wakefulness (%) 4 Wakefulness (min.) 16.5 NREM 1 (%) 3 NREM 1 (min.) 13.5 NREM 2 (%) 40 NREM 2 (min.) 170.5 NREM 3 (%) 45 NREM 3 (min.) 194.0 REM (%) 12 REM (min.) 50.0 # Arousals 48 Arousal Index 7 # Snore 2,622 Snore Index 367.6 AHI 3.1 AHI Supine 4 AHI Non-Supine 1 NREM AHI 2.1 REM AHI 10.8 RDI 3.1 # Obstructive Apnea 0 # Central Apnea 0 # Mixed Apnea 0 # Hypopneas 22 RERAs 0 Total Respiratory Events 22 Time Below SpO2 89% (min.) 19.1 Mean NREM SpO2 (%) 92 Mean REM SpO2 (%) 92 Mean Sleep SpO2 (%) 92 Min NREM SpO2 (%) 85 Min REM SpO2 (%) 85 Position Supine (min.) 351.5 Position Non-supine (min.) 91.5 LM Index Sleep 43.5 LM Index NREM 48.6 LM Index REM 4.8 Mean Heart Rate (bpm) 78 Min Heart Rate (bpm) 61
--- NOTE | 2017-01-14 10:38 | POLYSOMNOGRAPH REPORT ---
REFERRING PERSON: Dr. Debby Robledo. WORKERS' COMPENSATION COMMISSIONER: Nessa Shell. Ms. Everett is a 36-year-old female sent for evaluation of possible sleep-disordered breathing. She has both sleep onset and sleep maintenance insomnia as well as unrefreshing sleep. She does snore. She states that [facility] her oxygen saturations dropped when she fell asleep. Her [place] Sleepiness Scale score on the evening of this study is 2. BMI is 34.7. Following the technical and digital specifications of the [place] [employer] (AASM) a standard diagnostic polysomnogram was performed monitoring EEG, EOG, EMG (chin and leg deviations), oxygen saturation, body position, digital video, respiratory effort and airflow. The sleep Stage and event scoring was based on the AASM Manual for the Scoring of Sleep and Associated Events 2007 edition. Apneas are defined as a drop in the peak thermal sensor excursion by >90% of baseline for at least 10 seconds. Hypopneas were scored using the 4% oxygen desaturation rule (4A-Medicare) and a decrease in the nasal pressure excursions by >30% of baseline for at least 10 seconds. Respiratory effort-related arousal (RERA's) is defined as a sequence of breaths lasting at least 10 seconds characterized by increasing respiratory effort or flattening of the nasal pressure waveform leading to an arousal from sleep when the sequence of breaths does not meet criteria for an apnea or hypopnea. Apnea Hypopnea index (AHI) is defined as the number of apneas and hypopneas occurring in an hour of sleep. Respiratory disturbance index (RDI) is defined as the number of apneas, hypopneas, and RERA's occurring in an hour of sleep. Ms. Everett' total sleep period time was 432 minutes. Total sleep time was 428 minutes. Sleep efficiency was 96%. Latency to sleep onset was 12.5 minutes with wake after sleep onset of 4 minutes. Total non-REM sleep time was 378 minutes. She spent 3% of that time in N1 sleep, 40% in N2 sleep and 45% in N3 sleep. REM latency was 185.5 minutes. Total REM sleep time was 50 minutes or 12% of total sleep time. There were 48 cortical arousals from sleep. Eleven of these arousals were spontaneous, 3 were due to respiratory events, 11 due to periodic limb movements of sleep and 23 were due to snoring. There were 310 periodic limb movements noted on this test. Limb movement index was 43.5. Limb movement with arousal index was 1.5. There were no central obstructive or mixed apneas on this test. There were 22 hypopneas and no RERA. Apnea-hypopnea index was normal at 3.1. REM AHI was 10.8, supine AHI was 4. There were 2622 snoring events recorded. Total sleep time with snoring was 9.8%. Mean saturation during sleep was 92% with desaturations to 85%. Saturations were less than 89% for 19.1 minutes of recording time. This was shortly after she fell asleep and was in supine sleep. The saturations did not drop tremendously, but they were below 89%. There was no cardiac ectopy noted on this study. During sleep, Ms. Everett' heart rates ranged from a low of 61 beats per minute to a high of 102 beats per minute. IMPRESSION AND PLAN: A 36-year-old female without evidence of sleep apnea but mild nocturnal hypoxemia was noted. 1. This patient may benefit from oxygen therapy at bedtime. An overnight oximetry on room air can confirm the need for this. If she is placed on oxygen, an overnight oximetry on oxygen should be performed to confirm resolution of his hypoxemia with treatment. 2. Weight loss will likely improve her hypoxemia as it was very mild. She also does take inhalers for what appears to be asthma and should this be more optimally and treated, her hypoxemia may also improve.
== END ==
LOC: C.NEUR 21:00
PROVIDERS: ATTEND Family Medicine
DX: G47.10 Hypersomnia, unspecified (principal); Z72.821 Inadequate sleep hygiene

== ENCOUNTER → 2017-01-14 | Outpatient (CLI) | payer OTHER ==
--- NOTE | 2017-01-14 10:39 | DIAGNOSTIC IMAGING REPORT ---
SMALL BOWEL STUDY CLINICAL HISTORY: ABD PAIN/BLOATINGpain. Nausea. COMPARISON STUDY: None FLUOROSCOPY TIME: 1.2 minutes. FINDINGS: Normal mucosal pattern and transit time throughout small bowel. No evidence for a stenotic lesion. Terminal ileum is within normal limits. Spot films appear unremarkable. IMPRESSION: Normal study. Electronically signed by: Ajay Beth M.D. 01/14/2017 10:38 AM Dictated Date/Time: 01/14/2017 10:37 AM
== END | disposition home or self-care (01) ==
LOC: C.RAD 07:32
PROVIDERS: ATTEND Nurse Practitioner Family
DX: Z87.19 Personal history of other diseases of the digestive system (principal); R14.0 Abdominal distension (gaseous); R10.84 Generalized abdominal pain

== ENCOUNTER 2017-01-29 21:06 | Emergency (ER) | payer OTHER ==
[~2017-01-29] VITALS: Ht 167.6 cm; Wt 97.6 kg
[~2017-01-29 21:06] MED LIST changes: -ATR25 PO; -BENZ10LO2 PO; -ERGO500011 PO; -FOLI400T41 PO; -FRCT/ PO; -LRS20 PO; -MAGN250T11 PO; -MGNG500 PO; -MULT-513 PO; -NMN10 PO; -PANT40TA PO; -PRED50TA PO; -PROM1SUP19 PR; -PROP10TA7 PO; -QVRINH80 INH; -SENN-65 PO; -TRAZ50TA35 PO; -ZNF/4 PO; -ZOLM1TAB11 PO
[2017-01-29] MEDS ORDERED: MULT-513 PO (21:09)
[2017-01-29 21:14] VITALS: TEMP 36.7; Ht 167.6 cm; Wt 97.6 kg
[2017-01-29] MEDS ORDERED: FOLI400T41 PO (21:19)
[2017-01-29] MEDS ORDERED: ZNF/4 PO (21:19)
[2017-01-29] MEDS ORDERED: PROM1SUP19 PR (21:25)
[2017-01-29] MEDS ORDERED: PROP10TA7 PO (21:25)
[2017-01-29] MEDS ORDERED: TRAZ50TA35 PO (21:33)
[2017-01-29] MEDS ORDERED: DiphenhydrAMINE HCL 50 MG/ML VIAL IV STA (21:35)
[2017-01-29] MEDS ORDERED: KETOROLAC TROMETHAMINE 30 MG/ML VIAL IV STA (21:35)
[2017-01-29] MEDS ORDERED: SODIUM CHLORIDE 0.9% 1000ML 1,000 ML IV STA ×2 (21:35)
[2017-01-29] MEDS ORDERED: METOCLOPRAMIDE HCL INJ 5 MG/ML 2 ML VIAL IV STA (21:35)
[2017-01-29] MEDS ORDERED: ALUMINUM/MAGNESIUM SUSP 30 ML UDC PO STA (21:40)
[2017-01-29] MEDS ORDERED: LIDOCAINE HCL 2% VISC SOLN 20 ML UDC PO STA (21:40)
--- NOTE | 2017-01-29 22:08 | DIAGNOSTIC IMAGING REPORT ---
SINGLE VIEW CHEST CLINICAL HISTORY: Atypical chest pain. FINDINGS: An AP, portable, upright chest radiograph is compared to study dated 03/31/2016. The examination is degraded by portable technique and large body habitus. The cardiomediastinal silhouette is unremarkable. The lungs and pleural spaces are clear. No pneumothorax is seen. The bony thorax is grossly intact. Cholecystectomy clips are noted in the right upper quadrant. IMPRESSION: No acute cardiopulmonary abnormality. Electronically signed by: Minesh Barnett M.D. 01/29/2017 10:06 PM Dictated Date/Time: 01/29/2017 10:05 PM
[2017-01-29] MEDS ORDERED: LRS20 PO (22:09)
[2017-01-29] MEDS ORDERED: MGNG500 PO (22:10)
[2017-01-29] MEDS ORDERED: ZOLM1TAB11 PO (22:10)
[2017-01-29 22:28] LABS: BASO % 0.4 %; BASO ABS # 0.03 K/uL (0-0.2); COMPLETE YES; EOS % 1.5 %; HEMATOCRIT 39.5 % (37-47); IG% 0.1 %; LYMPH % 24.6 %; LYMPH ABS # 1.84 K/uL (1.2-3.4); MEAN CELL VOLUME 88.4 fL (80-100); MEAN CORPUSCULAR HEMOGLOBIN 29.1 pg (25-34); MEAN CORPUSCULAR HGB CONC 32.9 g/dl (32-36); MEAN PLATELET VOLUME 9.7 fL (7.4-10.4); MONO % 4.4 %; PLATELET COUNT 282 K/uL (130-400); RED BLOOD COUNT 4.47 M/uL (4.2-5.4); WHITE BLOOD COUNT 7.47 K/uL (4.8-10.8)
[2017-01-29] MEDS ORDERED: ERGO500011 PO (22:40)
[2017-01-29 22:43] LABS: ALT/SGPT 24 U/L (12-78); BLOOD UREA NITROGEN 9 mg/dl (7-18); BUN/CREATININE RATIO 8.3 (10-20); CALCIUM 9.2 mg/dl (8.5-10.1); CARBON DIOXIDE 27 mmol/L (21-32); CHLORIDE 106 mmol/L (98-107); GLUCOSE 108 mg/dl (70-99); MAGNESIUM 2.3 mg/dl (1.8-2.4); POTASSIUM 3.5 mmol/L (3.5-5.1); SODIUM 141 mmol/L (136-145)
[2017-01-29 22:48] LABS: PREG INTERNAL NEGATIVE QC NEG CLEAR BACKGROUND; PREG INTERNAL POSITIVE QC POS CONTROL LINE
[2017-01-29 22:54] LABS: ALKALINE PHOSPHATASE 101 U/L (45-117); AST/SGOT 14 U/L (15-37)
[2017-01-29] MEDS ORDERED: OPTIRAY 320 IV PRN (23:15)
[2017-01-29 23:25] LABS: URINE APPEARANCE CLEAR (CLEAR); URINE BILIRUBIN NEG (NEG); URINE COLOR YELLOW; URINE NITRITE NEG (NEG); URINE PH 6.5 (4.5-7.5); URINE SPECIFIC GRAVITY 1.008 (1.000-1.030); UROBILINOGEN NEG (NEG); ZZUR CULT IF INDIC CLEAN CATCH NO
[2017-01-29 23:29] LABS: MANUAL MICROSCOPIC REQUIRED? NO; REVIEW REQ? NO
[2017-01-30] MEDS ORDERED: HYDROmorphone INJ 1 MG/ML SYR IV STA (01:03)
--- NOTE | 2017-01-30 01:12 | EMERGENCY ROOM VISIT NOTE ---
History First contact with patient: 21:27 Chief Complaint: CHEST PAIN Stated Complaint: CHEST PAIN, PAIN FROM KIDNEY AREA Nursing Triage Summary: Chest pain on and off for a few days, Pain radiates to neck and left shoulder. History of Present Illness The patient is a 36 year old female who presents to the Emergency Room with complaints of chest pain, back pain, occasional dyspnea for the past 5 days that has been intermittent. Patient had these symptoms before. She states it could be due to her Mendes's esophagitis, her pleurisy, her costochondritis. No injury to the area. No history DVT, PE, coronary disease or CVA. No family history of PE. Her mother of a heart attack in her 50s. Patient does not smoke. She describes pain as aching, ranging in severity currently 4 out of 10 midsternal. Nothing makes it better or worse. Patient denies fever, chills, abdominal pain, vomiting, diarrhea, urinary symptoms. She is tolerated by mouth fluids and food. Review of Systems See HPI for pertinent positives & negatives. A total of 10 systems reviewed and were otherwise negative. Past Medical/Surgical History Medical Problems: (1) Chronic neck pain (2) Depression (3) Gastroesophageal reflux disease (4) Hypothyroidism (5) Migraine (6) Partial small bowel obstruction (7) Polycystic ovaries (8) Right ovarian cyst Surgical Problems: (1) H/O sinus surgery (2) S/P cholecystectomy Mendes's esophagitis Family History Cancer Diabetes mellitus FHx: alcoholism Heart disease Hypertension Social History Smoking Status: Never Smoker Alcohol Use: none Drug Use: none Marital Status: single, in relationship Housing Status: lives with family Occupation Status: unemployed Current/Historical Medications Scheduled Amlodipine (Norvasc), 5 MG PO DAILY Atenolol (Tenormin), 25 MG PO QPM Baclofen (Baclofen), 20 MG PO TID Buspirone HCl (Buspirone HCl), 5-10 MG PO UD Duloxetine HCl (Duloxetine HCl), 90 MG PO DAILY Ergocalciferol (Vitamin D 54688 Unit), 1 TAB PO WK Famotidine (Pepcid), 20 MG PO BID Fish Oil (Holly-3), 1 CAP PO DAILY Fluticasone Propionate (Nasal) (Flonase Allergy Relief), 2 SPRAY YARELY BID Folic Acid (Folvite), 400 MCG PO DAILY Levothyroxine Sodium (Levothyroxine Sodium), 50 MCG PO DAILY Magnesium Gluconate (Mag-G), 125 MG PO DAILY Metformin HCl (Metformin HCl), 500 MG PO BIDM Multivitamins/Minerals (Mvi With Minerals), 1 TAB PO DAILY Potassium Chloride Microencaps (Potassium Chloride Er), 1 TAB PO BID Propranolol (Inderal), 10 MG PO BID Tizanidine (Tizanidine HCl), 4-8 MG PO HS Trazodone Hcl (Trazodone), 50 MG PO HS Zolmitriptan (Zolmitriptan), 2.5-5 MG PO UD Scheduled PRN Chlordiazepoxide/Clidinium (Librax 5MG/2.5MG), 1 CAP PO QID PRN for Furosemide (Lasix), 20 MG PO BID PRN for EDEMA Hyoscyamine Sulfate (Hyoscyamine Sulfate), 0.125 MG PO Q4H PRN for Abdominal Pain Metoclopramide Hcl (Reglan), 5 MG PO TID PRN for Nausea Promethazine (Phenergan Suppository), 25 MG IN Q6H PRN for Nausea Promethazine HCl (Promethazine HCl), 25 MG PO HS PRN for Nausea or Migraine Allergies Coded Allergies: Cephalexin (Verified Allergy, Mild, rash, 10/26/16) Morphine (Verified Allergy, Unknown, HIVES/ITCHING, N&V, 10/26/16) Topiramate (Verified Allergy, Unknown, neurological symptoms, 10/26/16) Physical Exam Vital Signs Date Time Temp Pulse Resp B/P Pulse Ox O2 Delivery O2 Flow Rate FiO2 01/30/17 01:03 91 01/29/17 23:05 91 18 141/93 99 Room Air 01/29/17 22:16 Room Air 01/29/17 22:16 Room Air 01/29/17 21:29 104 01/29/17 21:22 Room Air 01/29/17 21:14 36.7 102 16 129/86 97 Room Air Physical Exam VITALS: Vitals are noted on the nurse's note and reviewed by myself. Vital signs mildly tachycardic. GENERAL: White female, in no acute distress, nondiaphoretic, well-developed well -nourished. SKIN: The skin was without rashes, erythema, edema, or bruising. There is no tenting of the skin. Capillary reflex less than 2 seconds. HEAD: Normocephalic atraumatic. EARS: External auditory canals clear, tympanic membranes pearly back without erythema or effusion bilaterally. EYES: Pupils equal round and reactive to light and accommodation. Conjunctivae without injection, sclerae without icterus. Extraocular movements intact. NOSE: Patent, turbinates without inflammation or discharge. MOUTH: Mucous membranes moist. Pharynx without erythema or exudate. Uvula midline. Airway patent. Tongue does not deviate. NECK: Supple without nuchal rigidity. No lymphadenopathy. No thyromegaly. Cervical spine is nontender. No JVD. HEART: Regular rate and rhythm without murmurs gallops or rubs. Chest nontender to palpation LUNGS: Clear to auscultation bilaterally without wheezes, rales or rhonchi. No dullness to percussion. No retractions or accessory muscle use. ABDOMEN: Positive bowel sounds x 4. Normal tympanic percussion. Soft, nontender, without masses or organomegaly. Fabian sign negative. No guarding or rebound tenderness. No CVA tenderness MUSCULOSKELETAL: No muscle atrophy, erythema, or edema noted. No thoracic or lumbar tenderness on exam. Negative straight leg raise. Patient can ambulate without difficulties. NEURO: Patient was alert and oriented to person place and time. Normal sensation to light and sharp touch. No focal neurological deficits. Medical Decision & Procedures Laboratory Results 01/29/17 22:14 Red Blood Count 4.47, Mean Corpuscular Volume 88.4, Mean Corpuscular Hemoglobin 29.1, Mean Corpuscular Hemoglobin Concent 32.9, Mean Platelet Volume 9.7, Neutrophils (%) (Auto) 69.0, Lymphocytes (%) (Auto) 24.6, Monocytes (%) (Auto) 4.4, Eosinophils (%) (Auto) 1.5, Basophils (%) (Auto) 0.4, Neutrophils # (Auto) 5.15, Lymphocytes # (Auto) 1.84, Monocytes # (Auto) 0.33, Eosinophils # (Auto) 0.11, Basophils # (Auto) 0.03 01/29/17 22:14 Test 01/29/17 00:00 01/29/17 22:09 01/29/17 22:14 01/30/17 00:24 Urine Color YELLOW Urine Appearance CLEAR (CLEAR) Urine pH 6.5 (4.5-7.5) Urine Specific [place] 1.008 (1.000-1.030) Urine Protein NEG (NEG) Urine Glucose (UA) NEG (NEG) Urine Ketones NEG (NEG) Urine Occult Blood NEG (NEG) Urine Nitrite NEG (NEG) Urine Bilirubin NEG (NEG) Urine Urobilinogen NEG (NEG) Urine Leukocyte Esterase NEG (NEG) Bedside D-Dimer > 450 ng/mlFEU (0-450) White Blood Count 7.47 K/uL (4.8-10.8) Red Blood Count 4.47 M/uL (4.2-5.4) Hemoglobin 13.0 g/dL (12.0-16.0) Hematocrit 39.5 % (37-47) Mean Corpuscular Volume 88.4 fL (80-100) Mean Corpuscular Hemoglobin 29.1 pg (25-34) Mean Corpuscular Hemoglobin Concent 32.9 g/dl (32-36) Platelet Count 282 K/uL (130-400) Mean Platelet Volume 9.7 fL (7.4-10.4) Neutrophils (%) (Auto) 69.0 % Lymphocytes (%) (Auto) 24.6 % Monocytes (%) (Auto) 4.4 % Eosinophils (%) (Auto) 1.5 % Basophils (%) (Auto) 0.4 % Neutrophils # (Auto) 5.15 K/uL (1.4-6.5) Lymphocytes # (Auto) 1.84 K/uL (1.2-3.4) Monocytes # (Auto) 0.33 K/uL (0.11-0.59) Eosinophils # (Auto) 0.11 K/uL (0-0.5) Basophils # (Auto) 0.03 K/uL (0-0.2) RDW Standard Deviation 44.2 fL (36.4-46.3) RDW Coefficient of Variation 13.7 % (11.5-14.5) Immature Granulocyte % (Auto) 0.1 % Immature Granulocyte # (Auto) 0.01 K/uL (0.00-0.02) Anion Gap 8.0 mmol/L (3-11) Est Creatinine Clear Calc Drug Dose 83.3 ml/min Estimated GFR () 74.8 Estimated GFR (Non- 64.5 BUN/Creatinine Ratio 8.3 (10-20) Calcium Level 9.2 mg/dl (8.5-10.1) Magnesium Level 2.3 mg/dl (1.8-2.4) Total Bilirubin 0.4 mg/dl (0.2-1) Direct Bilirubin 0.1 mg/dl (0-0.2) Aspartate Amino Transf (AST/SGOT) 14 U/L (15-37) Alanine Aminotransferase (ALT/SGPT) 24 U/L (12-78) Alkaline Phosphatase 101 U/L (45-117) Total Creatine Kinase 91 U/L (26-192) Creatine Kinase MB < 0.5 ng/ml (0.5-3.6) Creatine Kinase MB Ratio (0-3.0) Troponin I < 0.015 ng/ml (0-0.045) Total Protein 7.8 gm/dl (6.4-8.2) Albumin 3.9 gm/dl (3.4-5.0) Lipase 153 U/L (73-393) Thyroid Stimulating Hormone (TSH) 2.460 uIu/ml (0.300-4.500) Human Chorionic Gonadotropin, Qual NEG (NEG) Bedside Troponin I 0.000 ng/ml (0-0.045) Medications Administered Medications (Trade) Dose Ordered Sig/Jean Claude Route Start Time Stop Time Status Last Admin Dose Admin Sodium Chloride 1,000 ml @ 999 mls/hr Q1H1M STAT IV 01/29/17 21:35 01/29/17 22:35 DC 01/29/17 22:15 999 MLS/HR Sodium Chloride (Nss 1000ml) 1,000 ml @ 125 mls/hr Q8H STAT IV 01/29/17 21:35 01/30/17 05:34 01/29/17 22:15 125 MLS/HR Ketorolac Tromethamine (Toradol Inj) 30 mg NOW STAT IV 01/29/17 21:35 01/29/17 21:37 DC 01/29/17 22:16 30 MG Metoclopramide HCl (Reglan Inj) 10 mg NOW STAT IV 01/29/17 21:35 01/29/17 21:38 DC 01/29/17 22:15 10 MG Diphenhydramine HCl (Benadryl Inj) 25 mg NOW STAT IV 01/29/17 21:35 01/29/17 21:38 DC 01/29/17 22:15 25 MG Lidocaine HCl (Viscous Lidocaine 2% Soln) 10 ml NOW STAT PO 01/29/17 21:40 01/29/17 21:41 DC 01/29/17 21:40 10 ML Al Hydroxide/Mg Hydroxide (Maalox Susp) 30 ml NOW STAT PO 01/29/17 21:40 01/29/17 21:41 DC 01/29/17 21:40 30 ML ED Course Prior records/ancillary studies reviewed. Triage Nursing notes reviewed. Additional history obtained from family. The patient's history was concerning for chest pain. Differential diagnosis: Etiologies such as cardiac ischemia, aortic dissection, pulmonary embolism, pneumonia, pneumothorax, musculoskeletal, infections, pericarditis, myocarditis , esophageal rupture, gastrointestinal, as well as others were entertained. Physical examination: As above. ER treatment provided: GI cocktail, Toradol, Reglan, Benadryl, IV fluids On reassessment the patient felt better. Diagnostic interpretation by me: The electrocardiogram was normal sinus, normal intervals, no acute ST-T wave changes, rate of 98. Impression normal sinus rhythm interpreted by myself The labs revealed 2 sets of troponins that are 2 hours apart that are negative. Elevated d-dimer. Negative CTA Imaging studies: Chest x-ray as above SINGLE VIEW CHEST CLINICAL HISTORY: Atypical chest pain. FINDINGS: An AP, portable, upright chest radiograph is compared to study dated 03/31/2016. The examination is degraded by portable technique and large body habitus. The cardiomediastinal silhouette is unremarkable. The lungs and pleural spaces are clear. No pneumothorax is seen. The bony thorax is grossly intact. Cholecystectomy clips are noted in the right upper quadrant. IMPRESSION: No acute cardiopulmonary abnormality. CTA was negative per stat radiology Electronically signed by: Minesh Barnett M.D. Exam and history seem consistent with chest pain most likely related to patient' s Mendes's esophagitis. She is advised to continue her PPI and follow-up with her GI doctor this week and try Maalox. She is advised to return to the ER immediately for chest pain, difficulty breathing, fevers, worsening signs or symptoms or as needed. Patient had a negative CTA. 2 troponins that were negative there were 2 hours apart. She was well-appearing.By the evaluation outlined above emergent etiologies such as cardiac ischemia, aortic dissection, pulmonary embolism, pneumonia, pneumothorax, infections, pericarditis, myocarditis, gastrointestinal, as well as others were deemed relatively unlikely. The pt informed about the findings as listed above. All questions were answered and pleased with the treatment. Return instructions were outlined and the patient was discharged in stable condition. Referral: The patient was referred back to GI and/or primary care physician for follow-up in 2 to 3 days for a recheck of the current condition. case reviewed with my Attending Medical Decision As above Impression Primary Impression: Substernal precordial chest pain Departure Information Dispostion Home / Self-Care Condition GOOD Referrals Melania Zhou D.O. (PCP) Patient Instructions My [facility] Additional Instructions DO NOT drive, drink alcohol, operate machinery, or perform dangerous activities today. You were given medications in the ER that can affect your ability to safely function or operate a vehicle. Continue your Protonix. Try Maalox or Zantac for breakthrough symptoms for reflux. Avoid large meals. Avoid acidic foods. Rest and drink plenty of fluids as tolerated. Continue current medications. Avoid strenuous activities and anything that worsens your pain. Resume normal activities once your symptoms resolve. Return to the ER immediately for worsening or persistent chest pain, abdominal pain, black or blood in your stools, vomiting, fevers, chest pains, difficulty breathing, worsening of your condition, or as needed. Follow up with your primary physician and/or GI doctor in 2-3 days for a recheck of your current condition.
[2017-01-30 01:20] VITALS: BP 131/100; PULSE 89; O2SAT 94
--- NOTE | 2017-01-30 07:56 | DIAGNOSTIC IMAGING REPORT ---
CHEST CTA for PULMONARY ARTERIES CT DOSE: 501.52 mGy.cm HISTORY: Atypical chest pain. TECHNIQUE: Multiaxial CT images of the chest were performed following the intravenous administration of contrast to evaluate the pulmonary arteries. Maximal intensity projection images were also obtained. COMPARISON STUDY: None. FINDINGS: There is a normal caliber thoracic aorta with no evidence for dissection. There is no evidence for pulmonary embolus. No pleural effusions. No pneumothorax. The liver and spleen are unremarkable. No mediastinal or hilar lymphadenopathy. The central airways are patent. The lungs are clear. A 6 mm sclerotic focus within the mid sternum. This favors a bone island. Cholecystectomy. IMPRESSION: No evidence for pulmonary embolus. Electronically signed by: Rick Brown M.D. 01/30/2017 7:55 AM Dictated Date/Time: 01/30/2017 7:51 AM
[2017-01-31] MEDS ORDERED: PANT40TA PO (17:27)
[2017-07-17] MEDS ORDERED: QVRINH80 INH (14:14)
== END 2017-01-30 01:23 | disposition home or self-care (01) ==
LOC: C.EDB 21:07 → C.EDA 01-30 01:23
DX: R07.2 Precordial pain (principal); K22.70 Barrett's esophagus without dysplasia; M54.2 Cervicalgia; G89.29 Other chronic pain; F32.9 Major depressive disorder, single episode, unspecified; K21.9 Gastro-esophageal reflux disease without esophagitis; E03.9 Hypothyroidism, unspecified; G43.909 Migraine, unspecified, not intractable, without status migrainosus; E28.2 Polycystic ovarian syndrome; Z80.9 Family history of malignant neoplasm, unspecified; Z83.3 Family history of diabetes mellitus; Z82.49 Family history of ischemic heart disease and other diseases of the circulatory system; Z79.899 Other long term (current) drug therapy

== ENCOUNTER 2017-01-31 17:08 | Emergency (ER) | payer OTHER ==
[~2017-01-31] VITALS: Ht 167.6 cm; Wt 98.5 kg
[~2017-01-31 17:08] MED LIST changes: +ERGO500011 PO; +FOLI400T41 PO; -KETO10TA PO; +LRS20 PO; +MGNG500 PO; +MULT-513 PO; +PROM1SUP19 PR; +PROP10TA7 PO; +TRAZ50TA35 PO; -VTMD PO; +ZNF/4 PO; +ZOLM1TAB11 PO
[2017-01-31 17:13] VITALS: TEMP 36.7; Ht 167.6 cm; Wt 98.5 kg
[2017-01-31] MEDS ORDERED: PANT40TA PO (17:27)
[2017-01-31] MEDS ORDERED: LIDOCAINE HCL 2% VISC SOLN 20 ML UDC PO STA (17:30)
[2017-01-31] MEDS ORDERED: PROCHLORPERAZINE 5 MG/ML 2 ML VIAL IV STA (17:30)
[2017-01-31] MEDS ORDERED: SODIUM CHLORIDE 0.9% 1000ML 1,000 ML IV STA (17:30)
[2017-01-31] MEDS ORDERED: ALUMINUM/MAGNESIUM SUSP 30 ML UDC PO STA (17:30)
[2017-01-31] MEDS ORDERED: DiphenhydrAMINE HCL 50 MG/ML VIAL IV STA (17:30)
[2017-01-31 18:53] LABS: BASO % 0.3 %; BASO ABS # 0.02 K/uL (0-0.2); COMPLETE YES; EOS % 1.4 %; HEMATOCRIT 36.7 % (37-47); IG% 0.3 %; LYMPH % 26.5 %; LYMPH ABS # 1.83 K/uL (1.2-3.4); MEAN CELL VOLUME 88.9 fL (80-100); MEAN CORPUSCULAR HGB CONC 33.8 g/dl (32-36); MEAN PLATELET VOLUME 9.6 fL (7.4-10.4); MONO % 4.3 %; NEUT % 67.2 %; PLATELET COUNT 242 K/uL (130-400); RED BLOOD COUNT 4.13 M/uL (4.2-5.4); WHITE BLOOD COUNT 6.91 K/uL (4.8-10.8)
[2017-01-31 19:07] LABS: INR 0.9 (0.9-1.1); PARTIAL THROMBOPLASTIN RATIO 1.1
[2017-01-31 19:11] LABS: ALT/SGPT 22 U/L (12-78); AST/SGOT 13 U/L (15-37); BLOOD UREA NITROGEN 7 mg/dl (7-18); BUN/CREATININE RATIO 7.9 (10-20); CALCIUM 8.9 mg/dl (8.5-10.1); CARBON DIOXIDE 27 mmol/L (21-32); CHLORIDE 109 mmol/L (98-107); CREATININE 0.91 mg/dl (0.60-1.20); GLUCOSE 85 mg/dl (70-99); POTASSIUM 3.8 mmol/L (3.5-5.1); SODIUM 144 mmol/L (136-145)
[2017-01-31] MEDS ORDERED: KETOROLAC TROMETHAMINE 30 MG/ML VIAL IV STA (19:11)
[2017-01-31 19:14] LABS: ALKALINE PHOSPHATASE 91 U/L (45-117)
[2017-01-31 20:12] VITALS: BP 122/73; PULSE 71; O2SAT 97
[2017-01-31] MEDS ORDERED: DEXAMETHASONE SOD INJ 10 MG/ML VIAL IV ONE (20:15)
--- NOTE | 2017-02-01 01:37 | EMERGENCY ROOM VISIT NOTE ---
History Report prepared by Dion: Cristy Costa Under the Supervision of: Dr. Alexander Hutchins M.D. First contact with patient: 17:18 Chief Complaint: HEADACHE Stated Complaint: PAIN IN CHEST, MIGRAINE History of Present Illness The patient is a 36 year old female who presents to the Emergency Room with complaints of a worsening headache since earlier today. She has a history of migraine headaches and states that this feels like her typical migraines. Her pain is located on the left side of her head. She describes her pain as throbbing and rates it as a 7/10 in severity. Light and especially sound exacerbate her pain. She has been experiencing dizziness, nausea, and vomiting with her headache. The patient has also been experiencing constant chest pain located in the center of her chest for the past 6 days. She has been evaluated for this pain in the ED and had negative chest CT and negative troponin. She describes her chest pain as "sharp." Her pain is not worse with movement or deep breaths. She has had similar chest pain for a long time and is followed for GI. She was told she had reflux as well as costochondritis or pleurisy. She followed up with her GI doctor today and they switched her to Protonix today. She is scheduled for an esophageal manometry and pH testing. The patient denies shortness of breath, urinary symptoms, abnormal vaginal discharge or bleeding, and any chance of . She came in today because she feels her chest pain has triggered her migraine. Source of History: patient Onset: earlier today Position: head Symptom Intensity: 7/10 Quality: other (throbbing) Timing: worsening Modifying Factors (Worsening): other (light and sound) Associated Symptoms: + chest pain, + nausea, + vomiting, No SOB, No urinary symptoms Review of Systems See HPI for pertinent positives & negatives. A total of 10 systems reviewed and were otherwise negative. Past Medical & Surgical Medical Problems: (1) Chronic neck pain (2) Depression (3) Gastroesophageal reflux disease (4) Hypothyroidism (5) Migraine (6) Partial small bowel obstruction (7) Polycystic ovaries (8) Right ovarian cyst Surgical Problems: (1) H/O sinus surgery (2) S/P cholecystectomy Family History Cancer Diabetes mellitus FHx: alcoholism Heart disease Hypertension Social History Smoking Status: Never Smoker Alcohol Use: none Drug Use: none Marital Status: single, in relationship Housing Status: lives with family Occupation Status: unemployed Current/Historical Medications Scheduled Amlodipine (Norvasc), 5 MG PO DAILY Atenolol (Tenormin), 25 MG PO QPM Baclofen (Baclofen), 20 MG PO TID Buspirone HCl (Buspirone HCl), 5-10 MG PO UD Duloxetine HCl (Duloxetine HCl), 90 MG PO DAILY Ergocalciferol (Vitamin D 48024 Unit), 1 TAB PO WK Famotidine (Pepcid), 20 MG PO BID Fish Oil ([place]-3), 1 CAP PO DAILY Fluticasone Propionate (Nasal) (Flonase Allergy Relief), 2 SPRAY YARELY BID Folic Acid (Folvite), 400 MCG PO DAILY Levothyroxine Sodium (Levothyroxine Sodium), 50 MCG PO DAILY Magnesium Gluconate (Mag-G), 125 MG PO DAILY Metformin HCl (Metformin HCl), 500 MG PO BIDM Multivitamins/Minerals (Mvi With Minerals), 1 TAB PO DAILY Pantoprazole (Protonix), 40 MG PO BID Potassium Chloride Microencaps (Potassium Chloride Er), 1 TAB PO BID Propranolol (Inderal), 10 MG PO BID Tizanidine (Tizanidine HCl), 4-8 MG PO HS Trazodone Hcl (Trazodone), 50 MG PO HS Zolmitriptan (Zolmitriptan), 2.5-5 MG PO UD Scheduled PRN Chlordiazepoxide/Clidinium (Librax 5MG/2.5MG), 1 CAP PO QID PRN for Furosemide (Lasix), 20 MG PO BID PRN for EDEMA Hyoscyamine Sulfate (Hyoscyamine Sulfate), 0.125 MG PO Q4H PRN for Abdominal Pain Metoclopramide Hcl (Reglan), 5 MG PO TID PRN for Nausea Promethazine (Phenergan Suppository), 25 MG [place] Q6H PRN for Nausea Promethazine HCl (Promethazine HCl), 25 MG PO HS PRN for Nausea or Migraine Allergies Coded Allergies: Cephalexin (Verified Allergy, Mild, rash, 01/31/17) Morphine (Verified Allergy, Unknown, HIVES/ITCHING, N&V, 01/31/17) Topiramate (Verified Allergy, Unknown, neurological symptoms, 01/31/17) Physical Exam Vital Signs Date Time Temp Pulse Resp B/P (MAP) Pulse Ox O2 Delivery O2 Flow Rate FiO2 01/31/17 20:12 71 16 122/73 97 Room Air 01/31/17 19:05 74 01/31/17 18:43 73 23 124/92 100 Room Air 01/31/17 17:13 36.7 75 18 136/92 98 Room Air Physical Exam Constitutional: Vital signs reviewed. Eyes: Pupils are equal round reactive to light. Conjunctiva are noninjected. ENT: Pharynx is clear without erythema or exudate. Mucous membranes are moist. Neck supple without meningeal signs. Respiratory: Clear to auscultation bilaterally. Breath sounds are equal bilaterally. Cardiovascular: Regular rate and rhythm. No rubs or gallops. GI: Soft, nondistended and nontender. Bowel sounds are present. Musculoskeletal: No peripheral edema. No lower extremity tenderness. Integumentary: No cyanosis. Neurological: The patient is awake and alert. Cranial nerves II-XII are intact except chronic right deafness. Motor is 5 out of 5 all extremities. Sensation is intact to light touch all extremities. Normal speech. No pronator drift. Psychiatric: Slightly anxious appearing. Medical Decision & Procedures Laboratory Results 01/31/17 18:41 Red Blood Count 4.13, Mean Corpuscular Volume 88.9, Mean Corpuscular Hemoglobin 30.0, Mean Corpuscular Hemoglobin Concent 33.8, Mean Platelet Volume 9.6, Neutrophils (%) (Auto) 67.2, Lymphocytes (%) (Auto) 26.5, Monocytes (%) (Auto) 4.3, Eosinophils (%) (Auto) 1.4, Basophils (%) (Auto) 0.3, Neutrophils # (Auto) 4.64, Lymphocytes # (Auto) 1.83, Monocytes # (Auto) 0.30, Eosinophils # (Auto) 0.10, Basophils # (Auto) 0.02 01/31/17 18:41 Test 01/31/17 18:41 01/31/17 18:49 White Blood Count 6.91 K/uL (4.8-10.8) Red Blood Count 4.13 M/uL (4.2-5.4) Hemoglobin 12.4 g/dL (12.0-16.0) Hematocrit 36.7 % (37-47) Mean Corpuscular Volume 88.9 fL (80-100) Mean Corpuscular Hemoglobin 30.0 pg (25-34) Mean Corpuscular Hemoglobin Concent 33.8 g/dl (32-36) Platelet Count 242 K/uL (130-400) Mean Platelet Volume 9.6 fL (7.4-10.4) Neutrophils (%) (Auto) 67.2 % Lymphocytes (%) (Auto) 26.5 % Monocytes (%) (Auto) 4.3 % Eosinophils (%) (Auto) 1.4 % Basophils (%) (Auto) 0.3 % Neutrophils # (Auto) 4.64 K/uL (1.4-6.5) Lymphocytes # (Auto) 1.83 K/uL (1.2-3.4) Monocytes # (Auto) 0.30 K/uL (0.11-0.59) Eosinophils # (Auto) 0.10 K/uL (0-0.5) Basophils # (Auto) 0.02 K/uL (0-0.2) RDW Standard Deviation 44.7 fL (36.4-46.3) RDW Coefficient of Variation 13.6 % (11.5-14.5) Immature Granulocyte % (Auto) 0.3 % Immature Granulocyte # (Auto) 0.02 K/uL (0.00-0.02) Prothrombin Time 10.0 SECONDS (9.0-12.0) Prothromb Time International Ratio 0.9 (0.9-1.1) Activated Partial Thromboplast Time 28.7 SECONDS (21.0-31.0) Partial Thromboplastin Ratio 1.1 Anion Gap 8.0 mmol/L (3-11) Est Creatinine Clear Calc Drug Dose 101.1 ml/min Estimated GFR () 94.1 Estimated GFR (Non- 81.2 BUN/Creatinine Ratio 7.9 (10-20) Calcium Level 8.9 mg/dl (8.5-10.1) Total Bilirubin 0.6 mg/dl (0.2-1) Direct Bilirubin < 0.1 mg/dl (0-0.2) Aspartate Amino Transf (AST/SGOT) 13 U/L (15-37) Alanine Aminotransferase (ALT/SGPT) 22 U/L (12-78) Alkaline Phosphatase 91 U/L (45-117) Total Protein 8.0 gm/dl (6.4-8.2) Albumin 4.2 gm/dl (3.4-5.0) Lipase 99 U/L (73-393) Bedside Troponin I 0.000 ng/ml (0-0.045) Laboratory results as reviewed by me. Medications Administered Medications (Trade) Dose Ordered Sig/Jean Claude Route Start Time Stop Time Status Last Admin Dose Admin Lidocaine HCl (Viscous Lidocaine 2% Soln) 10 ml NOW STAT PO 01/31/17 17:30 01/31/17 17:32 DC 01/31/17 18:35 10 ML Al Hydroxide/Mg Hydroxide (Maalox Susp) 30 ml NOW STAT PO 01/31/17 17:30 01/31/17 17:32 DC 01/31/17 18:35 30 ML Prochlorperazine Edisylate (Compazine Inj) 10 mg NOW STAT IV 01/31/17 17:30 01/31/17 17:32 DC 01/31/17 18:35 10 MG Diphenhydramine HCl (Benadryl Inj) 50 mg NOW STAT IV 01/31/17 17:30 01/31/17 17:32 DC 01/31/17 18:35 50 MG Sodium Chloride 1,000 ml @ 999 mls/hr Q1H1M STAT IV 01/31/17 17:30 01/31/17 18:30 DC 01/31/17 18:37 999 MLS/HR Ketorolac Tromethamine (Toradol Inj) 10 mg NOW STAT IV 01/31/17 19:11 01/31/17 19:13 DC 01/31/17 19:20 10 MG Dexamethasone Sodium Phosphate (Decadron Inj) 10 mg NOW ONCE IV 01/31/17 20:15 01/31/17 20:16 DC 01/31/17 20:11 10 MG ECG Indication: chest pain Rate (beats per minute): 65 Rhythm: normal sinus Findings: no acute ischemic change, no ectopy, other (low voltage QRS) Change: no significant change (01/29/2017) ED Course 1718: The patient was evaluated in room B3B. A complete history and physical exam was performed. 1730: NSS 1000 ml @ 999 mls/hr IV, Benadryl 50 mg IV, Compazine 10 mg IV, Maalox Susp 30 ml PO, Lidocaine HCl 10 ml PO 1908: I discussed the test results with the patient. She has had no change in her headache or chest pain. 1910: Toradol 10 mg IV 1923: I reassessed the patient at this time. She is feeling better and resting comfortably. I discussed the results and treatment plan with the patient. I answered all pertaining questions that she had. She expressed understanding and verbalized agreement. The patient will be discharged home. She was encouraged to follow up with her PCP tomorrow. Medical Decision This is a 36-year-old female presents with chest pain and a migraine headache. Differential diagnosis includes migraine headache, tension headache, costochondritis, pleurisy, reflux disease, RI. I did perform a limited focused review of portions of the patient's old chart on the electronic medical record. The patient has had multiple visits to this ED for chest pains and headaches. She was last seen here January 29 for chest pain. She has a history of Mendes's esophagus, pleurisy, and costochondritis. She had a negative CT of the chest for pulmonary embolism and negative troponin. She also had a brain MRI in January of last year which was negative. Medication Reconciliation: I attest that I have personally reviewed the patient' s current medication list. Blood Pressure Screening: Patient was found to have an elevated blood pressure and was referred to their primary doctor for recheck and further treatment. I did evaluate the patient as noted above. She is presenting with chest pain and a migraine headache. She has had a long history of chest pain and is followed by GI who saw her today and told her to take Protonix instead of Prilosec and advised Gaviscon for breakthrough pain. She presents here because she continues to have chest pain and subsequently developed a migraine headache. IV access was established. The patient was placed on a continuous surveillance monitor. I did order and personally review the patient's 12-lead EKG as described above. She has no acute ischemic changes on her twelve-lead EKG. I did order and review the patient's blood work as noted in the electronic medical record. Troponin is negative. I did treat the patient with a GI cocktail. She was also given Compazine and Benadryl IV as well as normal saline IV. On reassessment she still has a headache and was given Toradol IV. I did discuss the test results with her. She was advised follow up with her doctor for further evaluation of her chronic chest pain and control of her migraines. She did request some further pain medicine for her headache and so I did give her Decadron 10 mg IV. She was discharged. Impression Primary Impression: Migraine without aura Additional Impression: Chronic chest pain Scribe Attestation The scribe's documentation has been prepared under my direct and personally reviewed by me in its entirety. I confirm that the note above accurately reflects all work, treatment, procedures, and medical decision making performed by me. Departure Information Dispostion Home / Self-Care Referrals Melania Zhou D.O. (PCP) Forms HOME CARE DOCUMENTATION FORM, IMPORTANT VISIT INFORMATION Patient Instructions ED Chest Pain Atypical Unkn Cause, Headaches Migraine and Tension, My [facility] Additional Instructions You have been examined and treated today on an emergency basis only. This is not a substitute for, or an effort to provide, complete comprehensive medical care. It is impossible to recognize and treat all injuries or illnesses in a single emergency department visit. It is therefore important that you follow up closely with your physician. Call as soon as possible for an appointment. Return for worsening symptoms or if you develop fever, numbness or weakness on one side of your body, difficulties with your speech or walking, or any other concerning symptoms. Problem Qualifiers Primary Impression: Migraine without aura Status migrainosus presence: without status migrainosus Intractability: not intractable Qualified Codes: G43.009 - Migraine without aura, not intractable , without status migrainosus
[2017-07-17] MEDS ORDERED: QVRINH80 INH (14:14)
== END 2017-01-31 20:41 | disposition home or self-care (01) ==
LOC: C.EDB 17:09
DX: G43.009 Migraine without aura, not intractable, without status migrainosus (principal); R07.9 Chest pain, unspecified; G89.29 Other chronic pain; F32.9 Major depressive disorder, single episode, unspecified; K21.9 Gastro-esophageal reflux disease without esophagitis; E03.9 Hypothyroidism, unspecified; Z90.49 Acquired absence of other specified parts of digestive tract; Z80.9 Family history of malignant neoplasm, unspecified; Z83.3 Family history of diabetes mellitus; Z82.49 Family history of ischemic heart disease and other diseases of the circulatory system; Z81.1 Family history of alcohol abuse and dependence; Z79.899 Other long term (current) drug therapy

== ENCOUNTER 2017-02-16 17:26 | Emergency (ER) | payer OTHER ==
[~2017-02-16] VITALS: Ht 167.6 cm; Wt 99.4 kg
[~2017-02-16 17:26] MED LIST changes: +PANT40TA PO
[2017-02-16 17:30] VITALS: TEMP 36.7; Ht 167.6 cm; Wt 99.4 kg
[2017-02-16] MEDS ORDERED: ONDANSETRON INJ 2 MG/ML 2 ML VIAL IV STA (17:48)
[2017-02-16] MEDS: HYDROmorphone INJ 2 MG/ML SYR/VIAL IV PRN ×2 (18:21→20:08)
--- NOTE | 2017-02-16 18:22 | EMERGENCY ROOM VISIT NOTE ---
History Report prepared by Dion: Les Aaron Under the Supervision of: Dr. Minesh Hernandez M.D. First contact with patient: 17:39 Chief Complaint: FALL Stated Complaint: FALL, HURT UPPER STOMACH, BAD PAIN History of Present Illness The patient is a 36 year old female who presents to the Emergency Room with complaints of worsening abdominal pain s/p fall occurring five days ago. She states that she accidently threw something in a dumpster, and climbed up to get it out, but ended up falling onto the rim of the dumpster. The patient states that she has been vomiting and coughing, and has felt dizzy. She was seen by her PCP yesterday for a routine check-up, and states that her PCP recommended a CT. Eating and movement worsens her pain. The patient denies any urinary symptoms, or black or tarry stool. She rates her pain as an 8/10 in severity. Source of History: patient Onset: 5 days ago Position: abdomen Symptom Intensity: 8/10 Timing: worsening Modifying Factors (Worsening): eating, movement Associated Symptoms: + cough, + vomiting Note: The patient also complains of dizziness. Review of Systems See HPI for pertinent positives & negatives. A total of 10 systems reviewed and were otherwise negative. Past Medical & Surgical Medical Problems: (1) Chronic neck pain (2) Depression (3) Gastroesophageal reflux disease (4) Hypothyroidism (5) Migraine (6) Partial small bowel obstruction (7) Polycystic ovaries (8) Right ovarian cyst Surgical Problems: (1) H/O sinus surgery (2) S/P cholecystectomy Family History Cancer Diabetes mellitus FHx: alcoholism Heart disease Hypertension Social History Smoking Status: Never Smoker Alcohol Use: none Drug Use: none Marital Status: single, in relationship Housing Status: lives with family Occupation Status: unemployed Current/Historical Medications Scheduled Amlodipine (Norvasc), 5 MG PO DAILY Atenolol (Tenormin), 25 MG PO QPM Baclofen (Baclofen), 20 MG PO TID Buspirone HCl (Buspirone HCl), 5-10 MG PO UD Duloxetine HCl (Duloxetine HCl), 90 MG PO DAILY Ergocalciferol (Vitamin D 41354 Unit), 1 TAB PO WK Fish Oil ([place]-3), 1 CAP PO DAILY Fluticasone Propionate (Nasal) (Flonase Allergy Relief), 2 SPRAY YARELY BID Folic Acid (Folvite), 400 MCG PO DAILY Levothyroxine Sodium (Levothyroxine Sodium), 50 MCG PO DAILY Magnesium Gluconate (Mag-G), 125 MG PO DAILY Metformin HCl (Metformin HCl), 500 MG PO BIDM Multivitamins/Minerals (Mvi With Minerals), 1 TAB PO DAILY Pantoprazole (Protonix), 40 MG PO BID Potassium Chloride Microencaps (Potassium Chloride Er), 1 TAB PO BID Propranolol (Inderal), 10 MG PO BID Tizanidine (Tizanidine HCl), 4-8 MG PO HS Trazodone Hcl (Trazodone), 50 MG PO HS Zolmitriptan (Zolmitriptan), 2.5-5 MG PO UD Scheduled PRN Chlordiazepoxide/Clidinium (Librax 5MG/2.5MG), 1 CAP PO QID PRN for Hyoscyamine Sulfate (Hyoscyamine Sulfate), 0.125 MG PO Q4H PRN for Abdominal Pain Metoclopramide Hcl (Reglan), 5 MG PO TID PRN for Nausea Promethazine (Phenergan Suppository), [address] Q6H PRN for Nausea Promethazine HCl (Promethazine HCl), 25 MG PO HS PRN for Nausea or Migraine Allergies Coded Allergies: Cephalexin (Verified Allergy, Mild, rash, 01/31/17) Morphine (Verified Allergy, Unknown, HIVES/ITCHING, N&V, 01/31/17) Topiramate (Verified Allergy, Unknown, neurological symptoms, 01/31/17) Physical Exam Vital Signs Date Time Temp Pulse Resp B/P (MAP) Pulse Ox O2 Delivery O2 Flow Rate FiO2 02/16/17 20:00 109 16 136/85 97 Room Air 02/16/17 17:30 36.7 97 18 136/91 99 Room Air Physical Exam GENERAL: Patient is in no acute distress. HEENT: No acute trauma, normocephalic atraumatic, mucous membranes moist, no nasal congestion, no scleral icterus. NECK: No stridor, no adenopathy, no meningismus, trachea is midline. LUNGS: Clear to auscultation bilaterally, no wheeze, no rhonchi, breath sounds equal. HEART: Without murmurs gallops or rubs, regular rate and rhythm. Chest: Nontender chest wall. ABDOMEN: Tender in the epigastrium. Somewhat linear contusion along the upper abdominal wall. Abdomen is soft. Bowel sounds positive. No peritonitis. EXTREMITIES: No cyanosis or edema, full range of motion of all the joints without pain or difficulty, no signs for acute trauma. NEUROLOGIC: Oriented x 3, no acute motor or sensory deficits, no focal weakness. SKIN: No rash, no jaundice, no diaphoresis. Medical Decision & Procedures ER Provider Diagnostic Interpretation: Radiology results as stated below per my review and radiologist interpretation: CHEST ONE VIEW PORTABLE FINDINGS: The bones soft tissues and hemidiaphragms are normal. The cardiomediastinal silhouette is normal. The lungs are clear. The pulmonary vasculature is normal. IMPRESSION: Negative chest. Electronically signed by: Ajay Beth M.D. ABDOMEN AND PELVIS CT WITH IV AND ORAL CONTRAST FINDINGS: The lung bases are clear. The liver, spleen, gallbladder, pancreas, kidneys, and adrenal glands are within normal limits. No bowel wall thickening or obstruction. The pelvic organs are unremarkable. No suspicious lytic or blastic osseous lesions. 3 cm left ovarian cyst. No free fluid within the pelvic cul-de-sac. IMPRESSION: No significant abnormality identified within the abdomen or pelvis. 3 cm left ovarian cyst. Electronically signed by: Ajay Beth M.D. Laboratory Results 02/16/17 18:05 Red Blood Count 4.08, Mean Corpuscular Volume 88.2, Mean Corpuscular Hemoglobin 29.7, Mean Corpuscular Hemoglobin Concent 33.6, Mean Platelet Volume 9.6, Neutrophils (%) (Auto) 76.2, Lymphocytes (%) (Auto) 17.1, Monocytes (%) (Auto) 5.0, Eosinophils (%) (Auto) 1.3, Basophils (%) (Auto) 0.2, Neutrophils # (Auto) 7.06, Lymphocytes # (Auto) 1.58, Monocytes # (Auto) 0.46, Eosinophils # (Auto) 0.12, Basophils # (Auto) 0.02 02/16/17 18:05 Test 02/16/17 18:05 White Blood Count 9.26 K/uL (4.8-10.8) Red Blood Count 4.08 M/uL (4.2-5.4) Hemoglobin 12.1 g/dL (12.0-16.0) Hematocrit 36.0 % (37-47) Mean Corpuscular Volume 88.2 fL (80-100) Mean Corpuscular Hemoglobin 29.7 pg (25-34) Mean Corpuscular Hemoglobin Concent 33.6 g/dl (32-36) Platelet Count 233 K/uL (130-400) Mean Platelet Volume 9.6 fL (7.4-10.4) Neutrophils (%) (Auto) 76.2 % Lymphocytes (%) (Auto) 17.1 % Monocytes (%) (Auto) 5.0 % Eosinophils (%) (Auto) 1.3 % Basophils (%) (Auto) 0.2 % Neutrophils # (Auto) 7.06 K/uL (1.4-6.5) Lymphocytes # (Auto) 1.58 K/uL (1.2-3.4) Monocytes # (Auto) 0.46 K/uL (0.11-0.59) Eosinophils # (Auto) 0.12 K/uL (0-0.5) Basophils # (Auto) 0.02 K/uL (0-0.2) RDW Standard Deviation 45.0 fL (36.4-46.3) RDW Coefficient of Variation 14.0 % (11.5-14.5) Immature Granulocyte % (Auto) 0.2 % Immature Granulocyte # (Auto) 0.02 K/uL (0.00-0.02) Anion Gap 8.0 mmol/L (3-11) Est Creatinine Clear Calc Drug Dose 102.7 ml/min Estimated GFR () 95.3 Estimated GFR (Non- 82.3 BUN/Creatinine Ratio 9.6 (10-20) Calcium Level 8.6 mg/dl (8.5-10.1) Total Bilirubin 0.5 mg/dl (0.2-1) Aspartate Amino Transf (AST/SGOT) 11 U/L (15-37) Alanine Aminotransferase (ALT/SGPT) 19 U/L (12-78) Alkaline Phosphatase 86 U/L (45-117) Total Protein 7.0 gm/dl (6.4-8.2) Albumin 4.0 gm/dl (3.4-5.0) Globulin 3.0 gm/dl (2.5-4.0) Albumin/Globulin Ratio 1.3 (0.9-2) Lipase 111 U/L (73-393) Laboratory results reviewed by me. Medications Administered Medications (Trade) Dose Ordered Sig/Jean Claude Route Start Time Stop Time Status Last Admin Dose Admin Ondansetron HCl (Zofran Inj) 4 mg NOW STAT IV 02/16/17 17:48 02/16/17 17:51 DC 02/16/17 18:21 4 MG Hydromorphone HCl (Dilaudid Inj) 1 mg Q30M PRN IV 02/16/17 18:00 03/02/17 17:59 02/16/17 18:21 1 MG Hydromorphone HCl (Dilaudid Inj) 1 mg STK-MED ONCE .ROUTE 02/16/17 20:05 02/16/17 20:06 DC 02/16/17 20:08 1 MG ECG Indication: abdominal pain Rate (beats per minute): 74 Rhythm: normal sinus Findings: no acute ischemic change, no ectopy ED Course 1744: The patient was evaluated in room C9. A complete history and physical exam was performed. 1747: Ordered Zofran Inj 4 mg IV. 1799: Ordered Dilaudid Inj 1 mg IV. Medical Decision The patient is a 36 year old female who presents to the ED with complaints of abdominal pain s/p fall. Differential diagnoses considered include rib contusion, sternal contusion, pancreatitis, liver/splenic injury, bowel rupture , abdominal wall hematoma, and contusion. There is no leukocytosis or concerning anemia. No significant electrolyte abnormality, kidney failure, hepatitis or pancreatitis. Chest x-ray does not show pneumonia or free air. No pulmonary contusion. EKG shows a sinus rhythm, no acute ischemia. Abdominal and pelvis CT does not show any solid organ injury , no bowel rupture, no acute traumatic process. A small left ovarian cyst was noted. Patient received IV Zofran, IV Dilaudid, she is more comfortable. She is not toxic, she is not febrile. The patient likely has an abdominal wall contusion. I have explained this to her. She is to use heat to the area, [id number] pain medications such as Motrin or Tylenol, rest was encouraged. If things are worsening, she can return. She was reassured. She will follow with OB for the incidental finding of an ovarian cyst. Blood Pressure Screening: Patient was found to have an elevated blood pressure and was referred to their primary doctor for recheck and further treatment. Medication Reconciliation: I attest that I have personally reviewed the patient' s current medication list. [place] Drug Monitoring Program Search Results: patient reviewed within database, see additional documentation Drug Monitoring Findings: The patient received 10 Hydrocodone tablets on 12/07/2016. Impression Primary Impression: Epigastric abdominal pain Additional Impressions: Abdominal wall contusion Ovarian cyst Scribe Attestation The scribe's documentation has been prepared under my direction and personally reviewed by me in its entirety. I confirm that the note above accurately reflects all work, treatment, procedures, and medical decision making performed by me. Departure Information Dispostion Home / Self-Care Referrals Melania Zhou D.O. (PCP) Forms HOME CARE DOCUMENTATION FORM, IMPORTANT VISIT INFORMATION Patient Instructions My [facility] Additional Instructions motrin and or tylenol for pain heat to the area rest return if worsening all imaging and lab testing was ok today as we discussed Problem Qualifiers
[2017-02-16 18:23] LABS: BASO % 0.2 %; BASO ABS # 0.02 K/uL (0-0.2); COMPLETE YES; EOS % 1.3 %; IG% 0.2 %; LYMPH % 17.1 %; LYMPH ABS # 1.58 K/uL (1.2-3.4); MEAN CELL VOLUME 88.2 fL (80-100); MEAN CORPUSCULAR HEMOGLOBIN 29.7 pg (25-34); MEAN CORPUSCULAR HGB CONC 33.6 g/dl (32-36); MEAN PLATELET VOLUME 9.6 fL (7.4-10.4); NEUT % 76.2 %; PLATELET COUNT 233 K/uL (130-400); RED BLOOD COUNT 4.08 M/uL (4.2-5.4); WHITE BLOOD COUNT 9.26 K/uL (4.8-10.8)
--- NOTE | 2017-02-16 18:29 | DIAGNOSTIC IMAGING REPORT ---
CHEST ONE VIEW PORTABLE CLINICAL HISTORY: ABDOMINAL PAIN/GI pain COMPARISON STUDY: 01/29/2017 FINDINGS: The bones soft tissues and hemidiaphragms are normal. The cardiomediastinal silhouette is normal. The lungs are clear. The pulmonary vasculature is normal. IMPRESSION: Negative chest. Electronically signed by: Ajay Beth M.D. 02/16/2017 6:28 PM Dictated Date/Time: 02/16/2017 6:27 PM
[2017-02-16 18:38] LABS: BUN/CREATININE RATIO 9.6 (10-20); CALCIUM 8.6 mg/dl (8.5-10.1); CREATININE 0.9 mg/dl (0.60-1.20); POTASSIUM 3.6 mmol/L (3.5-5.1)
[2017-02-16 18:43] LABS: ALB/GLOB RATIO 1.3 (0.9-2)
[2017-02-16] MEDS ORDERED: OPTIRAY 320 IV PRN (19:45)
--- NOTE | 2017-02-16 19:58 | DIAGNOSTIC IMAGING REPORT ---
ABDOMEN AND PELVIS CT WITH IV AND ORAL CONTRAST CT DOSE: 788.16 mGy.cm HISTORY: Trauma TRAUMA--GIVE QUICK PO AND GIVE IV CONTRAST TECHNIQUE: Multiaxial CT images of the abdomen and pelvis were performed following the use of intravenous and oral contrast. COMPARISON STUDY: 07/25/2016 FINDINGS: The lung bases are clear. The liver, spleen, gallbladder, pancreas, kidneys, and adrenal glands are within normal limits. No bowel wall thickening or obstruction. The pelvic organs are unremarkable. No suspicious lytic or blastic osseous lesions. 3 cm left ovarian cyst. No free fluid within the pelvic cul-de-sac. IMPRESSION: No significant abnormality identified within the abdomen or pelvis. 3 cm left ovarian cyst. Electronically signed by: Ajay Beth M.D. 02/16/2017 7:57 PM Dictated Date/Time: 02/16/2017 7:53 PM
[2017-02-16 20:00] VITALS: BP 136/85; PULSE 109; O2SAT 97
[2017-02-16] MEDS ORDERED: HYDROmorphone INJ 1 MG/ML SYR ONE (20:05)
[2017-07-17] MEDS ORDERED: QVRINH80 INH (14:14)
== END 2017-02-16 20:12 | disposition home or self-care (01) ==
LOC: C.EDB 17:27 → C.EDC 20:12
DX: R10.13 Epigastric pain (principal); S30.1XXA Contusion of abdominal wall, initial encounter; N83.209 Unspecified ovarian cyst, unspecified side; W19.XXXA Unspecified fall, initial encounter; K21.9 Gastro-esophageal reflux disease without esophagitis; E28.2 Polycystic ovarian syndrome; Z83.3 Family history of diabetes mellitus; Z82.49 Family history of ischemic heart disease and other diseases of the circulatory system

== ENCOUNTER 2017-03-04 08:31 | Emergency (ER) | payer OTHER ==
[~2017-03-04] VITALS: Ht 167.6 cm; Wt 95.8 kg
[~2017-03-04 08:31] MED LIST changes: +ERGO1CAP41 PO; -ERGO500011 PO; -FAMO20TA9 PO; -FURO-85 PO
[2017-03-04 08:37] VITALS: TEMP 36.6; Ht 167.6 cm; Wt 95.8 kg
[2017-03-04] MEDS ORDERED: SODIUM CHLORIDE 0.9% 1000ML 2,000 ML IV STA (09:17)
[2017-03-04] MEDS ORDERED: ONDANSETRON INJ 2 MG/ML 2 ML VIAL IV STA (09:17)
[2017-03-04] MEDS ORDERED: HYDROmorphone INJ 0.5 MG/0.5 ML SYR IV STA ×2 (09:17→12:15)
[2017-03-04] MEDS ORDERED: SODIUM CHLORIDE 0.9% 1000ML 1,000 ML IV STA (09:17)
[2017-03-04 09:30] LABS: BASO % 0.2 %; BASO ABS # 0.02 K/uL (0-0.2); COMPLETE YES; EOS % 1.7 %; HEMATOCRIT 38.6 % (37-47); IG% 0.1 %; LYMPH ABS # 1.85 K/uL (1.2-3.4); MEAN CELL VOLUME 89.6 fL (80-100); MEAN CORPUSCULAR HEMOGLOBIN 30.6 pg (25-34); MEAN CORPUSCULAR HGB CONC 34.2 g/dl (32-36); MEAN PLATELET VOLUME 9.7 fL (7.4-10.4); MONO % 7.7 %; NEUT % 67.3 %; PLATELET COUNT 305 K/uL (130-400); RED BLOOD COUNT 4.31 M/uL (4.2-5.4); WHITE BLOOD COUNT 8.05 K/uL (4.8-10.8)
[2017-03-04 09:37] LABS: BUN/CREATININE RATIO 10.1 (10-20); CALCIUM 8.8 mg/dl (8.5-10.1); CREATININE 0.97 mg/dl (0.60-1.20); POTASSIUM 3.6 mmol/L (3.5-5.1)
[2017-03-04 09:40] LABS: ALB/GLOB RATIO 1.3 (0.9-2)
[2017-03-04 09:55] LABS: PREG INTERNAL NEGATIVE QC NEG CLEAR BACKGROUND; PREG INTERNAL POSITIVE QC POS CONTROL LINE
[2017-03-04] MEDS ORDERED: METOCLOPRAMIDE HCL INJ 5 MG/ML 2 ML VIAL IV STA (12:15)
[2017-03-04 13:47] VITALS: BP 107/80; PULSE 84; O2SAT 100
--- NOTE | 2017-03-04 13:49 | EMERGENCY ROOM VISIT NOTE ---
History First contact with patient: 08:52 Chief Complaint: GI ASSESSMENT Stated Complaint: DEHYDRATED, VOMITING, MIGRAINE Nursing Triage Summary: "instructed to come here by my gastro drs. n/v/d for the past 2 days. unable to keep anything down which is giving me a migraine" History of Present Illness Patient is a 36-year-old white female with past medical history significant for gastroparesis, hypertension, migraine disorder, IBS, hypothyroidism, hyperglycemia, among other medical problems, who presents emergency department for evaluation of nausea, vomiting and abdominal pain 4 days, with associated migraine 2 weeks. Patient reports that last , 4 days ago, she developed epigastric/upper quadrant abdominal pain with associated nausea and vomiting. She reports using Phenergan and Zofran without relief of her symptoms. She has placed herself on a liquid diet, and is unable to even keep down any sips of fluid. She reports upper abdominal pain that she rates a 6/ 10. She has a history of IBS and gastroparesis. She follows with Dr. Anderson with gastroenterology. She reports that she called GI and they referred her to the emergency department. She has felt warm, but has not felt truly feverish. She denies any diarrhea. She reports decreased urinary output and dark urine, but no dysuria, frequency or urgency. She denies hematemesis. Last bowel movement was a couple of days ago, she denies melena or hematochezia. The patient reports that because she is "dehydrated" and unable to take her regular medications, she has been unable to treat her migraine that she has had for about 2 weeks. She reports her typical migraine. She notes a history of chronic migraines and follows with a headache specialist in [place]. She has undergone multiple diagnostic imaging studies and interventions including Botox migraine protocol, nerve blocks, and states that when her headaches are severe she requires a ketamine infusion. Review of Systems Review of systems as per HPI. All other systems reviewed were negative. 10 systems reviewed. Past Medical/Surgical History Medical Problems: (1) Chronic chest pain (2) Chronic neck pain (3) Depression (4) Gastroesophageal reflux disease (5) Hypothyroidism (6) Migraine (7) Migraine without aura (8) Partial small bowel obstruction (9) Polycystic ovaries (10) Right ovarian cyst Surgical Problems: (1) H/O sinus surgery (2) S/P cholecystectomy Electronic medical records are reviewed and summarized as above/below. See Problem List. Family History Cancer Diabetes mellitus FHx: alcoholism Heart disease Hypertension Social History Smoking Status: Never Smoker Alcohol Use: none Drug Use: none Marital Status: single, in relationship Housing Status: lives with family Occupation Status: unemployed Current/Historical Medications Scheduled Amlodipine (Norvasc), 5 MG PO DAILY Atenolol (Tenormin), 25 MG PO QPM Baclofen (Baclofen), 20 MG PO TID Duloxetine HCl (Duloxetine HCl), 90 MG PO DAILY Ergocalciferol (Vitamin D 93709 Unit), 1 TAB PO WK Fish Oil (Avoca-3), 1 CAP PO DAILY Fluticasone Propionate (Nasal) (Flonase Allergy Relief), 2 SPRAY YARELY BID Folic Acid (Folvite), 400 MCG PO DAILY Levothyroxine Sodium (Levothyroxine Sodium), 50 MCG PO DAILY Magnesium Gluconate (Mag-G), 125 MG PO DAILY Metformin HCl (Metformin HCl), 500 MG PO BIDM Multivitamins/Minerals (Mvi With Minerals), 1 TAB PO DAILY Pantoprazole (Protonix), 40 MG PO BID Potassium Chloride Microencaps (Potassium Chloride Er), 20 MEQ PO BID Propranolol (Inderal), 10 MG PO BID Tizanidine (Tizanidine HCl), 4-8 MG PO HS Trazodone Hcl (Trazodone), 50 MG PO HS Zolmitriptan (Zolmitriptan), 2.5-5 MG PO UD Scheduled PRN Buspirone HCl (Buspirone HCl), 5-10 MG PO TID PRN for Anxiety Chlordiazepoxide/Clidinium (Librax 5MG/2.5MG), 1 CAP PO QID PRN for Hyoscyamine Sulfate (Hyoscyamine Sulfate), 0.125 MG PO Q4H PRN for Abdominal Pain Metoclopramide Hcl (Reglan), 5 MG PO TID PRN for Nausea Promethazine (Phenergan Suppository), 25 MG AK Q6H PRN for Nausea Promethazine HCl (Promethazine HCl), 25 MG PO HS PRN for Nausea or Migraine Allergies Coded Allergies: Cephalexin (Verified Allergy, Mild, rash, 03/04/17) Morphine (Verified Allergy, Unknown, HIVES/ITCHING, N&V, 03/04/17) Topiramate (Verified Allergy, Unknown, neurological symptoms, 03/04/17) Physical Exam Vital Signs Date Time Temp Pulse Resp B/P (MAP) Pulse Ox O2 Delivery O2 Flow Rate FiO2 03/04/17 13:47 84 16 107/80 100 Room Air 03/04/17 12:45 84 16 126/60 100 Room Air 03/04/17 11:03 87 16 107/57 100 Room Air 03/04/17 09:47 76 16 105/67 99 Room Air 03/04/17 08:37 36.6 85 18 129/96 99 Room Air Physical Exam CONSTITUTIONAL: Patient is an obese 36-year-old white female who is awake and alert and in no acute distress. EYES: Pupils equal, round, reactive to light and accommodation. Slight photophobia noted. EOMs intact without nystagmus. Sclera are anicteric. ENT: Tympanic membranes intact, with normal landmarks. External canals are clear. Oral and nasopharynx are clear. Mucous membranes are moist, no lesions , tongue and gums appear normal. NECK: Supple without lymphadenopathy. No thyromegaly. No meningeal signs. Full active range of motion without discomfort. CARDIOVASCULAR: Regular rate and rhythm, with normal S1 and S2, no murmur or gallop or rub is heard. No carotid bruits auscultated. No JVD. Peripheral pulses easy to palpable. RESPIRATORY: Breath sounds equal and clear to auscultation without wheezes, rales, or rhonchi heard. Full and equal chest expansion without accessory muscle use or retractions. GI: Bowel sounds are present. Well-healed surgical scars are noted. Abdomen is soft, nondistended, tender in the epigastric, right and left upper quadrants , without guarding, rebound or rigidity. No organomegaly. No pulsatile masses. MUSCULOSKELETAL: Full range of motion of extremities x 4 with good strength. No cyanosis, edema, joint tenderness or swelling. No deformity. INTEGUMENTARY: No lesions or rash, normal skin turgor. NEUROLOGICAL: Alert, oriented, and cooperative. Cranial nerves, sensation and strength grossly intact. Pupils round, equal, and react to light, EOMs are full. LYMPH: No lymphadenopathy. Medical Decision & Procedures Laboratory Results 03/04/17 08:50 Red Blood Count 4.31, Mean Corpuscular Volume 89.6, Mean Corpuscular Hemoglobin 30.6, Mean Corpuscular Hemoglobin Concent 34.2, Mean Platelet Volume 9.7, Neutrophils (%) (Auto) 67.3, Lymphocytes (%) (Auto) 23.0, Monocytes (%) (Auto) 7.7, Eosinophils (%) (Auto) 1.7, Basophils (%) (Auto) 0.2, Neutrophils # (Auto) 5.41, Lymphocytes # (Auto) 1.85, Monocytes # (Auto) 0.62, Eosinophils # (Auto) 0.14, Basophils # (Auto) 0.02 03/04/17 08:50 Test 03/04/17 08:50 White Blood Count 8.05 K/uL (4.8-10.8) Red Blood Count 4.31 M/uL (4.2-5.4) Hemoglobin 13.2 g/dL (12.0-16.0) Hematocrit 38.6 % (37-47) Mean Corpuscular Volume 89.6 fL (80-100) Mean Corpuscular Hemoglobin 30.6 pg (25-34) Mean Corpuscular Hemoglobin Concent 34.2 g/dl (32-36) Platelet Count 305 K/uL (130-400) Mean Platelet Volume 9.7 fL (7.4-10.4) Neutrophils (%) (Auto) 67.3 % Lymphocytes (%) (Auto) 23.0 % Monocytes (%) (Auto) 7.7 % Eosinophils (%) (Auto) 1.7 % Basophils (%) (Auto) 0.2 % Neutrophils # (Auto) 5.41 K/uL (1.4-6.5) Lymphocytes # (Auto) 1.85 K/uL (1.2-3.4) Monocytes # (Auto) 0.62 K/uL (0.11-0.59) Eosinophils # (Auto) 0.14 K/uL (0-0.5) Basophils # (Auto) 0.02 K/uL (0-0.2) RDW Standard Deviation 47.3 fL (36.4-46.3) RDW Coefficient of Variation 14.3 % (11.5-14.5) Immature Granulocyte % (Auto) 0.1 % Immature Granulocyte # (Auto) 0.01 K/uL (0.00-0.02) Anion Gap 7.0 mmol/L (3-11) Est Creatinine Clear Calc Drug Dose 93.5 ml/min Estimated GFR () 87.1 Estimated GFR (Non- 75.1 BUN/Creatinine Ratio 10.1 (10-20) Calcium Level 8.8 mg/dl (8.5-10.1) Total Bilirubin 0.6 mg/dl (0.2-1) Aspartate Amino Transf (AST/SGOT) 17 U/L (15-37) Alanine Aminotransferase (ALT/SGPT) 26 U/L (12-78) Alkaline Phosphatase 94 U/L (45-117) Total Protein 7.9 gm/dl (6.4-8.2) Albumin 4.4 gm/dl (3.4-5.0) Globulin 3.5 gm/dl (2.5-4.0) Albumin/Globulin Ratio 1.3 (0.9-2) Lipase 110 U/L (73-393) Human Chorionic Gonadotropin, Qual NEG (NEG) Medications Administered Medications (Trade) Dose Ordered Sig/Jean Claude Route Start Time Stop Time Status Last Admin Dose Admin Sodium Chloride 2,000 ml @ 999 mls/hr Q2H1M STAT IV 03/04/17 09:17 03/04/17 11:17 DC 03/04/17 09:17 999 MLS/HR Sodium Chloride 1,000 ml @ 250 mls/hr Q4H STAT IV 03/04/17 09:17 03/04/17 13:16 DC 03/04/17 09:17 250 MLS/HR Ondansetron HCl (Zofran Inj) 4 mg NOW STAT IV 03/04/17 09:17 03/04/17 09:20 DC 03/04/17 09:42 4 MG Hydromorphone HCl (Dilaudid Inj) 0.5 mg NOW STAT IV 03/04/17 09:17 03/04/17 09:20 DC 03/04/17 09:42 0.5 MG Hydromorphone HCl (Dilaudid Inj) 0.5 mg NOW STAT IV 03/04/17 12:15 03/04/17 12:16 DC 03/04/17 12:33 0.5 MG Metoclopramide HCl (Reglan Inj) 10 mg NOW STAT IV 03/04/17 12:15 03/04/17 12:16 DC 03/04/17 12:33 10 MG ED Course The patient was seen and assessed as above. Her old records are reviewed. She presents emergency department for evaluation of abdominal pain, nausea and vomiting which she attributes to a flare of her gastroparesis. This has also caused an exacerbation of her underlying migraine disorder. IV lock was initiated. She was hydrated with normal saline solution. She was medicated with Zofran 4 mg and Dilaudid 0.5 mg IV. Laboratory studies were collected including CBC with differential, CMP, lipase, serum hCG and a urine dip. Old records were reviewed, and she had an abdominal CT scan to evaluate for trauma with the last couple of weeks. Laboratory studies noted a normal white count at 8000, no left shift or bandemia. H&H within normal limits. HCG was negative. Electrolytes, renal function and liver functions are all completely within normal limits. Lipase is not elevated, and therefore not indicative of acute pancreatitis. Urine dip was completely clean. The patient was reassessed, and continued to complain of some abdominal cramping. She was given Reglan 10 mg IV and additional Dilaudid 0.5 mg IV. She also requested and was given oral fluids which she tolerated. The patient was later reassessed and reported that she felt improved and felt well enough to be discharged to home. I suspect the patient's symptoms are likely related to her underlying gastroparesis and IBS. Her abdominal exam is benign, and laboratory workup was unremarkable. It was not felt that any further imaging was indicated and this was discussed with the patient and she was in agreement. Differential diagnoses entertained included gastritis, esophagitis, peptic ulcer disease, pancreatitis, bowel obstruction, perforation , diverticulitis, gastroparesis, IBS, UTI, pyelonephritis among others. The patient was discharged home, and was encouraged to use her home medications as prescribed. She was advised to follow-up with her PCP and her remedial masseur for further care and evaluation. The patient rated her overall discomfort a 2/10 at discharge. Blood pressure screening : Patient was found to have normal blood pressure on screening and does not require follow-up. Medication reconciliation: I attest that I have personally reviewed the patient' s current medication list. Medical Decision See Emergency Department course. Impression Primary Impression: Nausea & vomiting Departure Information Referrals Melania Zhou D.O. (PCP) Patient Instructions My [facility] Additional Instructions DO NOT drive, drink alcohol, operate machinery, or perform dangerous activities today. You were given medications in the ER that can affect your ability to safely function or operate a vehicle. Rest and drink plenty of fluids as tolerated. Slow sips of water or sports drinks are recommended instead of large amounts all at once. Continue current medications. Once your stomach is settled start with a clear liquid diet (jello, soup broth, etc.) and then advance as tolerated. You should avoid full, heavy meals for about 24 hrs from the time your symptoms resolved. Return to the ER for persistent vomiting, fevers, abdominal pain, chest pains, difficulty breathing, black or bloody stools, worsening of your condition, or as needed. Follow up with your primary physician this week for a recheck of your current condition Problem Qualifiers Primary Impression: Nausea & vomiting Vomiting type: unspecified Vomiting Intractability: non-intractable Qualified Codes: R11.2 - Nausea with vomiting, unspecified
== END 2017-03-04 13:56 | disposition home or self-care (01) ==
LOC: C.EDB 08:33 → C.EDA 13:56
DX: R11.2 Nausea with vomiting, unspecified (principal); K21.9 Gastro-esophageal reflux disease without esophagitis; E03.9 Hypothyroidism, unspecified; Z83.3 Family history of diabetes mellitus; Z82.49 Family history of ischemic heart disease and other diseases of the circulatory system

== ENCOUNTER 2017-03-10 17:48 | Emergency (ER) | payer OTHER ==
[~2017-03-10] VITALS: Ht 167.6 cm; Wt 96.8 kg
[2017-03-10 17:53] VITALS: Ht 167.6 cm; Wt 96.8 kg
[2017-03-10] MEDS ORDERED: ONDANSETRON INJ 2 MG/ML 2 ML VIAL IV STA (18:19)
[2017-03-10] MEDS ORDERED: HYDROmorphone INJ 2 MG/ML SYR/VIAL IV STA ×2 (18:19→20:18)
[2017-03-10] MEDS ORDERED: KETOROLAC TROMETHAMINE 30 MG/ML VIAL IV STA (18:19)
[2017-03-10] MEDS ORDERED: PROMETHAZINE HCL INJ 25 MG/ML 1 ML VIAL IV STA (18:19)
[2017-03-10] MEDS ORDERED: SODIUM CHLORIDE 0.9% 1000ML 2,000 ML IV STA (18:19)
[2017-03-10 18:47] LABS: BASO % 0.3 %; BASO ABS # 0.02 K/uL (0-0.2); COMPLETE YES; EOS % 0.9 %; HEMATOCRIT 34.9 % (37-47); IG% 0.1 %; LYMPH % 19.2 %; LYMPH ABS # 1.46 K/uL (1.2-3.4); MEAN CELL VOLUME 86.6 fL (80-100); MEAN CORPUSCULAR HGB CONC 35.8 g/dl (32-36); MEAN PLATELET VOLUME 9.1 fL (7.4-10.4); MONO % 6.8 %; NEUT % 72.7 %; PLATELET COUNT 244 K/uL (130-400); RED BLOOD COUNT 4.03 M/uL (4.2-5.4); WHITE BLOOD COUNT 7.62 K/uL (4.8-10.8)
[2017-03-10 19:00] LABS: URINE APPEARANCE CLEAR (CLEAR); URINE BILIRUBIN NEG (NEG); URINE COLOR YELLOW; URINE EPITHELIAL CELL AUTO >30 /lpf (0-5); URINE NITRITE NEG (NEG); URINE PH 6.5 (4.5-7.5); URINE SPECIFIC GRAVITY 1.007 (1.000-1.030); UROBILINOGEN NEG (NEG); ZZUR CULT IF INDIC CLEAN CATCH NO
[2017-03-10 19:01] LABS: MANUAL MICROSCOPIC REQUIRED? NO; REVIEW REQ? NO
--- NOTE | 2017-03-10 19:05 | EMERGENCY ROOM VISIT NOTE ---
History Report prepared by Dion: Les Aaron Under the Supervision of: Dr. Minesh Hernandez M.D. First contact with patient: 18:12 Chief Complaint: ABDOMINAL PAIN Stated Complaint: PAIN,HAVEN'T ATE/DRANK IN A WEEK History of Present Illness The patient is a 36 year old female who presents to the Emergency Room with complaints of persistent difficulty eating and drinking beginning over a week ago. She states that she has been vomiting up food, or experiencing abdominal pain and bloating with eating. The patient has a history of gastroparesis and was diagnosed 10 months ago. She was seen in the ED earlier this week for similar symptoms. The patient also complains of decreased urinary output and constipation. She denies any fevers, cough, or cold-like symptoms. She states that she typically defecates once every few days. The patient notes that she currently has an ovarian cyst. She has a history of bowel obstructions with her most recent one occurring less than a year ago. Source of History: patient Onset: over a week ago Quality: other (difficulty eating and drinking) Timing: other (persistent) Associated Symptoms: + vomiting, + abdominal pain, + urinary symptoms ( decreased output), No fevers, No cough Review of Systems See HPI for pertinent positives & negatives. A total of 10 systems reviewed and were otherwise negative. Past Medical & Surgical Medical Problems: (1) Chronic chest pain (2) Chronic neck pain (3) Depression (4) Gastroesophageal reflux disease (5) Hypothyroidism (6) Migraine (7) Migraine without aura (8) Partial small bowel obstruction (9) Polycystic ovaries (10) Right ovarian cyst Surgical Problems: (1) H/O sinus surgery (2) S/P cholecystectomy Family History Cancer Diabetes mellitus FHx: alcoholism Heart disease Hypertension Social History Smoking Status: Never Smoker Alcohol Use: none Drug Use: none Marital Status: single, in relationship Housing Status: lives with family Occupation Status: unemployed Current/Historical Medications Scheduled Amlodipine (Norvasc), 5 MG PO DAILY Atenolol (Tenormin), 25 MG PO QPM Duloxetine HCl (Duloxetine HCl), 90 MG PO DAILY Ergocalciferol (Vitamin D 60285 Unit), 1 TAB PO WK Fish Oil (Warren-3), 1 CAP PO DAILY Fluticasone Propionate (Nasal) (Flonase Allergy Relief), 2 SPRAY YARELY BID Folic Acid (Folvite), 400 MCG PO DAILY Levothyroxine Sodium (Levothyroxine Sodium), 50 MCG PO DAILY Magnesium Gluconate (Mag-G), 125 MG PO DAILY Metformin HCl (Metformin HCl), 500 MG PO BIDM Multivitamins/Minerals (Mvi With Minerals), 1 TAB PO DAILY Pantoprazole (Protonix), 40 MG PO BID Potassium Chloride Microencaps (Potassium Chloride Er), 20 MEQ PO BID Propranolol (Inderal), 10 MG PO BID Sennosides-Docusate Sodium (Senokot S), 2 TAB PO BID Tizanidine (Tizanidine HCl), 4-8 MG PO HS Trazodone Hcl (Trazodone), 50 MG PO HS Zolmitriptan (Zolmitriptan), 2.5-5 MG PO UD Scheduled PRN Baclofen (Baclofen), 20 MG PO TID PRN for Muscle Spasms Buspirone HCl (Buspirone HCl), 5-10 MG PO TID PRN for Anxiety Hyoscyamine Sulfate (Hyoscyamine Sulfate), 0.125 MG PO Q4H PRN for Abdominal Pain Metoclopramide Hcl (Reglan), 5 MG PO TID PRN for Nausea Promethazine (Phenergan Suppository), 25 MG MS Q6H PRN for Nausea Promethazine HCl (Promethazine HCl), 25 MG PO HS PRN for Nausea or Migraine Allergies Coded Allergies: Cephalexin (Verified Allergy, Mild, rash, 03/10/17) Morphine (Verified Allergy, Unknown, HIVES/ITCHING, N&V, 03/10/17) Topiramate (Verified Allergy, Unknown, neurological symptoms, 03/10/17) Physical Exam Vital Signs Date Time Temp Pulse Resp B/P (MAP) Pulse Ox O2 Delivery O2 Flow Rate FiO2 03/10/17 19:14 37.2 102 20 134/95 92 Room Air 03/10/17 17:53 36.8 106 20 127/85 98 Room Air Physical Exam GENERAL: Patient is in no acute distress. HEENT: No acute trauma, normocephalic atraumatic, mucous membranes dry, no nasal congestion, no scleral icterus. NECK: No stridor, no adenopathy, no meningismus, trachea is midline. LUNGS: Clear to auscultation bilaterally, no wheeze, no rhonchi, breath sounds equal. HEART: Tachycardic with a regular rhythm. No murmurs. ABDOMEN: Diffusely moderately tender, soft, nontender, bowel sounds positive, no hernias, no peritonitis. EXTREMITIES: No cyanosis or edema, full range of motion of all the joints without pain or difficulty, no signs for acute trauma. NEUROLOGIC: Oriented x 3, no acute motor or sensory deficits, no focal weakness. SKIN: No rash, no jaundice, no diaphoresis. Medical Decision & Procedures ER Provider Diagnostic Interpretation: X-ray results as stated below per interpretation by me and the radiologist: PA CHEST WITH ABDOMINAL SERIES FINDINGS: A PA chest radiograph is compared to study dated 02/16/2017. The examination is degraded by apical lordotic positioning. The cardiomediastinal silhouette is unremarkable. The lungs and pleural spaces are clear. No pneumothorax is seen. The bony thorax is grossly intact. Supine and erect abdominal radiographs are correlated with abdominal CT dated 02/16/2017. Cholecystectomy clips are noted. There is a nonobstructed abdominal bowel gas pattern. There is mild to moderate colonic fecal retention. No evidence of intraperitoneal free air is seen. There are no abnormal abdominal calcifications. Small phleboliths are observed in the pelvis. The lumbosacral spine and bony pelvis appear intact. IMPRESSION: 1. No active disease in the chest. 2. Nonobstructed abdominal bowel gas pattern noting mild to moderate colonic fecal retention. Electronically signed by: Minesh Barnett M.D. Laboratory Results 03/10/17 18:35 Red Blood Count 4.03, Mean Corpuscular Volume 86.6, Mean Corpuscular Hemoglobin 31.0, Mean Corpuscular Hemoglobin Concent 35.8, Mean Platelet Volume 9.1, Neutrophils (%) (Auto) 72.7, Lymphocytes (%) (Auto) 19.2, Monocytes (%) (Auto) 6.8, Eosinophils (%) (Auto) 0.9, Basophils (%) (Auto) 0.3, Neutrophils # (Auto) 5.54, Lymphocytes # (Auto) 1.46, Monocytes # (Auto) 0.52, Eosinophils # (Auto) 0.07, Basophils # (Auto) 0.02 03/10/17 18:35 Test 03/10/17 18:35 White Blood Count 7.62 K/uL (4.8-10.8) Red Blood Count 4.03 M/uL (4.2-5.4) Hemoglobin 12.5 g/dL (12.0-16.0) Hematocrit 34.9 % (37-47) Mean Corpuscular Volume 86.6 fL (80-100) Mean Corpuscular Hemoglobin 31.0 pg (25-34) Mean Corpuscular Hemoglobin Concent 35.8 g/dl (32-36) Platelet Count 244 K/uL (130-400) Mean Platelet Volume 9.1 fL (7.4-10.4) Neutrophils (%) (Auto) 72.7 % Lymphocytes (%) (Auto) 19.2 % Monocytes (%) (Auto) 6.8 % Eosinophils (%) (Auto) 0.9 % Basophils (%) (Auto) 0.3 % Neutrophils # (Auto) 5.54 K/uL (1.4-6.5) Lymphocytes # (Auto) 1.46 K/uL (1.2-3.4) Monocytes # (Auto) 0.52 K/uL (0.11-0.59) Eosinophils # (Auto) 0.07 K/uL (0-0.5) Basophils # (Auto) 0.02 K/uL (0-0.2) RDW Standard Deviation 43.6 fL (36.4-46.3) RDW Coefficient of Variation 13.7 % (11.5-14.5) Immature Granulocyte % (Auto) 0.1 % Immature Granulocyte # (Auto) 0.01 K/uL (0.00-0.02) Urine Color YELLOW Urine Appearance CLEAR (CLEAR) Urine pH 6.5 (4.5-7.5) Urine Specific Norden 1.007 (1.000-1.030) Urine Protein NEG (NEG) Urine Glucose (UA) NEG (NEG) Urine Ketones NEG (NEG) Urine Occult Blood NEG (NEG) Urine Nitrite NEG (NEG) Urine Bilirubin NEG (NEG) Urine Urobilinogen NEG (NEG) Urine Leukocyte Esterase TRACE (NEG) Urine WBC (Auto) 1-5 /hpf (0-5) Urine RBC (Auto) 0-4 /hpf (0-4) Urine Hyaline Casts (Auto) 1-5 /lpf (0-5) Urine Epithelial Cells (Auto) >30 /lpf (0-5) Urine Bacteria (Auto) NEG (NEG) Anion Gap 11.0 mmol/L (3-11) Est Creatinine Clear Calc Drug Dose 102.5 ml/min Estimated GFR () 96.6 Estimated GFR (Non- 83.4 BUN/Creatinine Ratio 10.6 (10-20) Lactic Acid Level 0.8 mmol/L (0.4-2.0) Calcium Level 9.0 mg/dl (8.5-10.1) Magnesium Level 1.9 mg/dl (1.8-2.4) Total Bilirubin 0.5 mg/dl (0.2-1) Aspartate Amino Transf (AST/SGOT) 14 U/L (15-37) Alanine Aminotransferase (ALT/SGPT) 22 U/L (12-78) Alkaline Phosphatase 83 U/L (45-117) Total Protein 7.4 gm/dl (6.4-8.2) Albumin 3.8 gm/dl (3.4-5.0) Globulin 3.6 gm/dl (2.5-4.0) Albumin/Globulin Ratio 1.1 (0.9-2) Lipase 96 U/L (73-393) Human Chorionic Gonadotropin, Qual NEG (NEG) Laboratory results reviewed by me. Medications Administered Medications (Trade) Dose Ordered Sig/Jean Claude Route Start Time Stop Time Status Last Admin Dose Admin Sodium Chloride 2,000 ml @ 999 mls/hr Q2H1M STAT IV 03/10/17 18:19 03/10/17 20:19 DC 03/10/17 18:19 999 MLS/HR Promethazine HCl (Phenergan Inj) 12.5 mg NOW STAT IV 03/10/17 18:19 03/10/17 18:23 DC 03/10/17 19:13 12.5 MG Ondansetron HCl (Zofran Inj) 4 mg NOW STAT IV 03/10/17 18:19 03/10/17 18:24 DC 03/10/17 18:47 4 MG Ketorolac Tromethamine (Toradol Inj) 30 mg NOW STAT IV 03/10/17 18:19 03/10/17 18:24 DC 03/10/17 18:47 30 MG Hydromorphone HCl (Dilaudid Inj) 1 mg NOW STAT IV 03/10/17 18:19 03/10/17 18:24 DC 03/10/17 18:48 1 MG ED Course 1812: The patient was evaluated in room B7. A complete history and physical exam was performed. 1818: Ordered Dilaudid Inj 1 mg IV, Toradol Inj 30 mg IV, Zofran Inj 4 mg IV, Phenergan Inj 12.5 mg IV, Sodium Chloride 2000 ml @ 999 mls/hr IV. 2014: Reevaluated the patient. Discussed results and discharge instructions: she verbalized understanding and agreement. The patient is ready for discharge. 2018: Ordered Dilaudid Inj 0.5 mg IV. 2029: Ordered Senokot Tab 2 tab PO. Medical Decision The patient is a 36 year old female who presents to the ED with complaints of difficultly eating and drinking. Differential diagnoses considered include bowel obstruction, ileus, gastroparesis, dehydration, electrolyte imbalance, hernia, ovarian cyst, and UTI. There is no leukocytosis or concerning anemia. No significant electrolyte abnormality, kidney failure, hepatitis or pancreatitis. testing is negative. Urinalysis does not show infection. Lactic acid level is not elevated making bowel ischemia less likely. Obstruction series shows constipation, no pneumonia or bowel obstruction. On exam, the patient was not toxic or febrile, there was no peritonitis. Patient received IV saline, IV Toradol. She was given IV Zofran, IV Phenergan and IV Dilaudid. She does feel improved. Because of the constipation, she received oral Senokot. I think the patient's pain is acute on chronic. She has chronic abdominal pain issues. She now is constipated and this has worsened her situation. She is being discharged home with Senokot and Miralax. She will follow with GI. Impression Primary Impression: Diffuse abdominal pain Additional Impressions: Nausea Constipation Scribe Attestation The scribe's documentation has been prepared under my direction and personally reviewed by me in its entirety. I confirm that the note above accurately reflects all work, treatment, procedures, and medical decision making performed by me. Departure Information Dispostion Home / Self-Care Prescriptions Sennosides-Docusate Sodium (SENOKOT S) 1 Tab Tab 2 TAB PO BID, #30 TAB 3 Refills Prov: Minesh Hernandez M.D. 03/10/17 Referrals Kopinski, Melania, D.O. (PCP) Forms Call Back Authorization, HOME CARE DOCUMENTATION FORM, IMPORTANT VISIT INFORMATION Patient Instructions My [facility] [employer] Additional Instructions senokot 2 tab 2x per day for constipation miralax as discussed at least 2x per day for now until start moving your bowels bland diet more fluids return if worsening lab testing today was ok see GI in followup when able Problem Qualifiers
[2017-03-10 19:06] LABS: BUN/CREATININE RATIO 10.6 (10-20); CREATININE 0.89 mg/dl (0.60-1.20); MAGNESIUM 1.9 mg/dl (1.8-2.4); POTASSIUM 3.5 mmol/L (3.5-5.1)
[2017-03-10 19:09] LABS: ALB/GLOB RATIO 1.1 (0.9-2)
[2017-03-10 19:14] VITALS: TEMP 37.2
[2017-03-10 19:27] LABS: PREG INTERNAL NEGATIVE QC NEG CLEAR BACKGROUND; PREG INTERNAL POSITIVE QC POS CONTROL LINE
--- NOTE | 2017-03-10 19:44 | DIAGNOSTIC IMAGING REPORT ---
PA CHEST WITH ABDOMINAL SERIES CLINICAL HISTORY: Generalized abdominal pain. Vomiting. FINDINGS: A PA chest radiograph is compared to study dated 02/16/2017. The examination is degraded by apical lordotic positioning. The cardiomediastinal silhouette is unremarkable. The lungs and pleural spaces are clear. No pneumothorax is seen. The bony thorax is grossly intact. Supine and erect abdominal radiographs are correlated with abdominal CT dated 02/16/2017. Cholecystectomy clips are noted. There is a nonobstructed abdominal bowel gas pattern. There is mild to moderate colonic fecal retention. No evidence of intraperitoneal free air is seen. There are no abnormal abdominal calcifications. Small phleboliths are observed in the pelvis. The lumbosacral spine and bony pelvis appear intact. IMPRESSION: 1. No active disease in the chest. 2. Nonobstructed abdominal bowel gas pattern noting mild to moderate colonic fecal retention. Electronically signed by: Minesh Barnett M.D. 03/10/2017 7:43 PM Dictated Date/Time: 03/10/2017 7:42 PM
[2017-03-10] MEDS ORDERED: SENN-65 PO (20:21)
[2017-03-10] MEDS ORDERED: DOCUSATE SODIUM/SENNA 50/8.6MG TAB PO ONE (20:30)
[2017-03-10] MEDS ORDERED: HYDROmorphone INJ 0.5 MG/0.5 ML SYR ONE (21:26)
[2017-03-10 21:34] VITALS: BP 128/90; PULSE 103; O2SAT 95
== END 2017-03-10 21:24 | disposition home or self-care (01) ==
LOC: C.EDB 17:49
DX: R10.9 Unspecified abdominal pain (principal); K59.00 Constipation, unspecified; R11.2 Nausea with vomiting, unspecified; K31.84 Gastroparesis; R07.9 Chest pain, unspecified; M54.2 Cervicalgia; G89.29 Other chronic pain; F32.9 Major depressive disorder, single episode, unspecified; K21.9 Gastro-esophageal reflux disease without esophagitis; E03.9 Hypothyroidism, unspecified; N83.201 Unspecified ovarian cyst, right side; E28.2 Polycystic ovarian syndrome; Z79.84 Long term (current) use of oral hypoglycemic drugs

== ENCOUNTER 2017-03-22 17:56 | Emergency (ER) | payer OTHER ==
[~2017-03-22] VITALS: Ht 165.1 cm; Wt 95.3 kg
[~2017-03-22 17:56] MED LIST changes: -CLID5CAP PO; +SENN-65 PO
[2017-03-22 18:01] VITALS: TEMP 37; Ht 165.1 cm; Wt 95.3 kg
[2017-03-22] MEDS ORDERED: ONDANSETRON INJ 2 MG/ML 2 ML VIAL IV STA (18:14)
[2017-03-22] MEDS ORDERED: SODIUM CHLORIDE 0.9% 1000ML 1,000 ML IV STA (18:14)
[2017-03-22] MEDS ORDERED: KETOROLAC TROMETHAMINE 30 MG/ML VIAL IV STA (18:14)
[2017-03-22 18:51] LABS: BASO % 0.3 %; BASO ABS # 0.02 K/uL (0-0.2); COMPLETE YES; EOS % 1.5 %; HEMATOCRIT 36.8 % (37-47); IG% 0.3 %; LYMPH % 20.5 %; LYMPH ABS # 1.61 K/uL (1.2-3.4); MEAN CELL VOLUME 88.7 fL (80-100); MEAN CORPUSCULAR HEMOGLOBIN 30.1 pg (25-34); MEAN PLATELET VOLUME 9.4 fL (7.4-10.4); MONO % 6.2 %; NEUT % 71.2 %; PLATELET COUNT 250 K/uL (130-400); RED BLOOD COUNT 4.15 M/uL (4.2-5.4); WHITE BLOOD COUNT 7.85 K/uL (4.8-10.8)
[2017-03-22 19:21] LABS: BUN/CREATININE RATIO 7.3 (10-20); CALCIUM 9.6 mg/dl (8.5-10.1); CREATININE 0.86 mg/dl (0.60-1.20); POTASSIUM 3.5 mmol/L (3.5-5.1)
[2017-03-22] MEDS ORDERED: OPTIRAY 320 IV PRN (19:45)
--- NOTE | 2017-03-22 19:52 | DIAGNOSTIC IMAGING REPORT ---
CT ABD/PELVIS IV CONTRAST ONLY CLINICAL HISTORY: Right-sided abdominal pain COMPARISON STUDY: 02/16/2017 TECHNIQUE: Following the IV administration of 116 mL of Optiray-320, CT scan of the abdomen and pelvis was performed from the lung bases to the proximal femurs. Images are reviewed in the axial, sagittal, and coronal planes. IV contrast was administered without complication. A dose lowering technique was utilized adhering to the principles of ALARA. CT DOSE: 735.86 mGy.cm FINDINGS: Lower chest: There are minor dependent atelectatic changes present. Liver: The contrast-enhanced liver is normal in size, contour, and attenuation. There is no intrahepatic biliary ductal dilatation. The hepatic veins and portal veins are patent. There is focal fat adjacent to the falciform ligament. Gallbladder: Surgically absent Spleen: Borderline enlarged measuring 12 cm Pancreas: Unremarkable. Adrenal glands: Unremarkable. Kidneys: There is symmetric renal cortical enhancement. The kidneys are normal in size without hydronephrosis. Bowel: There are no transition zones indicate bowel obstruction. The appendix appears normal. There is no acute diverticulitis. Peritoneum: There is no intraperitoneal free air or abdominal ascites. Vasculature: The abdominal aorta is normal in course and caliber. Adenopathy: None. Pelvic viscera: There are bilateral ovarian follicles. There is a nabothian gland cyst. Skeletal structures: No destructive osseous lesions are seen. IMPRESSION: 1. No acute intra-abdominal or pelvic findings 2. No evidence of bowel obstruction. No evidence of free air 3. Normal appendix 4. No evidence of acute diverticulitis Electronically signed by: Tonio Bowie M.D. 03/22/2017 7:50 PM Dictated Date/Time: 03/22/2017 7:46 PM
[2017-03-22] MEDS ORDERED: HYOSCYAMINE SULFATE 0.125 MG SL TAB SL STA (20:30)
[2017-03-22 20:57] VITALS: BP 103/63; PULSE 107; O2SAT 95
--- NOTE | 2017-03-22 23:39 | EMERGENCY ROOM VISIT NOTE ---
History Report prepared by Dion: Katie Carrasquillo Under the Supervision of: Dr. Alexander Hutchins M.D. First contact with patient: 18:04 Chief Complaint: ABDOMINAL PAIN Stated Complaint: PAIN RUQ, DEHYDRATION, GI PROBLEMS History of Present Illness The patient is a 36 year old female who presents to the Emergency Room with complaints of constant RUQ abdominal pain beginning 1 month ago. The patient states that she has a history of gastroparesis and IBS and notes that she has been having GI issues for years. She reports that she has had CT scans, IGD, and colonoscopies previously and follows with a GI doctor that she spoke to today and recommended that she be seen here. She notes that over the last few days she has had a flare up of her GI issues and she has not been able to eat or drink fluids regularly. The patient reports that she was seen here at the beginning of this month and there was concern for constipation but she is now having diarrhea that began yesterday. She notes that she has sharp right upper quadrant abdominal pain and cramping with her diarrhea. The patient states that her GI doctor wanted to start her on Reglan and Azithromycin again for her symptoms but due to her lack of success when she previously used these, she wanted to try something different. She notes that she has had in intermittent fever and notes that she last recorded her temperature was 100 degrees 3 days ago. She complains of nausea and vomiting and states that she takes either Zofran or Phenergan for nausea relief. The patient denies any chest pain, recent travel, or antibiotic use. She reports a history of cholecystectomy and states that she still has her appendix. Source of History: patient Onset: 1 month ago Position: abdomen (RUQ) Quality: sharp Timing: constant Modifying Factors (Relieving): other (none) Associated Symptoms: + fevers, + nausea, + vomiting, + abdominal pain, + diarrhea, No chest pain Note: She denies any leg pain or recent travel. Review of Systems See HPI for pertinent positives & negatives. A total of 10 systems reviewed and were otherwise negative. Past Medical & Surgical Medical Problems: (1) Chronic chest pain (2) Chronic neck pain (3) Depression (4) Gastroesophageal reflux disease (5) Hypothyroidism (6) Migraine (7) Migraine without aura (8) Partial small bowel obstruction (9) Polycystic ovaries (10) Right ovarian cyst Surgical Problems: (1) H/O sinus surgery (2) S/P cholecystectomy Family History Cancer Diabetes mellitus FHx: alcoholism Heart disease Hypertension Social History Smoking Status: Never Smoker Alcohol Use: none Drug Use: none Marital Status: single, in relationship Housing Status: lives with family Occupation Status: unemployed Current/Historical Medications Scheduled Amlodipine (Norvasc), 5 MG PO DAILY Atenolol (Tenormin), 25 MG PO QPM Duloxetine HCl (Duloxetine HCl), 90 MG PO HS Ergocalciferol (Vitamin D 69684 Unit), 1 TAB PO WK Fish Oil (Kiana-3), 1 CAP PO DAILY Folic Acid (Folvite), 400 MCG PO DAILY Levothyroxine Sodium (Levothyroxine Sodium), 50 MCG PO DAILY Magnesium Gluconate (Mag-G), 125 MG PO DAILY Metformin HCl (Metformin HCl), 500 MG PO BIDM Multivitamins/Minerals (Mvi With Minerals), 1 TAB PO DAILY Pantoprazole (Protonix), 40 MG PO BID Potassium Chloride Microencaps (Potassium Chloride Er), 20 MEQ PO HS Sennosides-Docusate Sodium (Senokot S), 2 TAB PO BID Tizanidine (Tizanidine HCl), 4-8 MG PO HS Trazodone Hcl (Trazodone), 50 MG PO HS Zolmitriptan (Zolmitriptan), 2.5-5 MG PO UD Scheduled PRN Baclofen (Baclofen), 20 MG PO TID PRN for Muscle Spasms Buspirone HCl (Buspirone HCl), 5-10 MG PO TID PRN for Anxiety Fluticasone Propionate (Nasal) (Flonase Allergy Relief), 2 SPRAY YARELY BID PRN for Hyoscyamine Sulfate (Hyoscyamine Sulfate), 0.125 MG PO Q4H PRN for Abdominal Pain Metoclopramide Hcl (Reglan), 5 MG PO TID PRN for Nausea Promethazine (Phenergan Suppository), 25 MG IN Q6H PRN for Nausea Promethazine HCl (Promethazine HCl), 25 MG PO HS PRN for Nausea or Migraine Allergies Coded Allergies: Cephalexin (Verified Allergy, Mild, rash, 03/22/17) Morphine (Verified Allergy, Unknown, HIVES/ITCHING, N&V, 03/22/17) Topiramate (Verified Allergy, Unknown, neurological symptoms, 03/22/17) Physical Exam Vital Signs Date Time Temp Pulse Resp B/P (MAP) Pulse Ox O2 Delivery O2 Flow Rate FiO2 03/22/17 20:57 107 18 103/63 95 03/22/17 19:57 109 16 112/68 99 Room Air 03/22/17 18:01 37.0 115 20 144/96 97 Room Air Physical Exam Constitutional: Vital signs reviewed. Eyes: Pupils are equal round reactive to light. Conjunctiva are noninjected. ENT: Pharynx is clear without erythema or exudate. Mucous membranes are moist. Neck supple without meningeal signs. Respiratory: Clear to auscultation bilaterally. Breath sounds are equal bilaterally. Cardiovascular: Regular rate and rhythm. No rubs or gallops. GI: Soft, nondistended. Bowel sounds are present. Patient has right upper quadrant and right lower abdominal tenderness, no guarding. Musculoskeletal: No peripheral edema. No lower extremity tenderness. Integumentary: No cyanosis. Neurological: The patient is awake and alert. No focal deficits. Psychiatric: Normal affect. Medical Decision & Procedures ER Provider Diagnostic Interpretation: CT results as stated below per my review and radiologist interpretation. CT ABD/PELVIS IV CONTRAST ONLY FINDINGS: Lower chest: There are minor dependent atelectatic changes present. Liver: The contrast-enhanced liver is normal in size, contour, and attenuation. There is no intrahepatic biliary ductal dilatation. The hepatic veins and portal veins are patent. There is focal fat adjacent to the falciform ligament. Gallbladder: Surgically absent Spleen: Borderline enlarged measuring 12 cm Pancreas: Unremarkable. Adrenal glands: Unremarkable. Kidneys: There is symmetric renal cortical enhancement. The kidneys are normal in size without hydronephrosis. Bowel: There are no transition zones indicate bowel obstruction. The appendix appears normal. There is no acute diverticulitis. Peritoneum: There is no intraperitoneal free air or abdominal ascites. Vasculature: The abdominal aorta is normal in course and caliber. Adenopathy: None. Pelvic viscera: There are bilateral ovarian follicles. There is a nabothian gland cyst. Skeletal structures: No destructive osseous lesions are seen. IMPRESSION: 1. No acute intra-abdominal or pelvic findings 2. No evidence of bowel obstruction. No evidence of free air 3. Normal appendix 4. No evidence of acute diverticulitis Electronically signed by: Tonio Bowie M.D. 03/22/2017 7:50 PM Dictated Date/Time: 03/22/2017 7:46 PM Laboratory Results 03/22/17 18:36 Red Blood Count 4.15, Mean Corpuscular Volume 88.7, Mean Corpuscular Hemoglobin 30.1, Mean Corpuscular Hemoglobin Concent 34.0, Mean Platelet Volume 9.4, Neutrophils (%) (Auto) 71.2, Lymphocytes (%) (Auto) 20.5, Monocytes (%) (Auto) 6.2, Eosinophils (%) (Auto) 1.5, Basophils (%) (Auto) 0.3, Neutrophils # (Auto) 5.59, Lymphocytes # (Auto) 1.61, Monocytes # (Auto) 0.49, Eosinophils # (Auto) 0.12, Basophils # (Auto) 0.02 03/22/17 18:36 Test 03/22/17 18:36 White Blood Count 7.85 K/uL (4.8-10.8) Red Blood Count 4.15 M/uL (4.2-5.4) Hemoglobin 12.5 g/dL (12.0-16.0) Hematocrit 36.8 % (37-47) Mean Corpuscular Volume 88.7 fL (80-100) Mean Corpuscular Hemoglobin 30.1 pg (25-34) Mean Corpuscular Hemoglobin Concent 34.0 g/dl (32-36) Platelet Count 250 K/uL (130-400) Mean Platelet Volume 9.4 fL (7.4-10.4) Neutrophils (%) (Auto) 71.2 % Lymphocytes (%) (Auto) 20.5 % Monocytes (%) (Auto) 6.2 % Eosinophils (%) (Auto) 1.5 % Basophils (%) (Auto) 0.3 % Neutrophils # (Auto) 5.59 K/uL (1.4-6.5) Lymphocytes # (Auto) 1.61 K/uL (1.2-3.4) Monocytes # (Auto) 0.49 K/uL (0.11-0.59) Eosinophils # (Auto) 0.12 K/uL (0-0.5) Basophils # (Auto) 0.02 K/uL (0-0.2) RDW Standard Deviation 45.4 fL (36.4-46.3) RDW Coefficient of Variation 13.8 % (11.5-14.5) Immature Granulocyte % (Auto) 0.3 % Immature Granulocyte # (Auto) 0.02 K/uL (0.00-0.02) Anion Gap 5.0 mmol/L (3-11) Est Creatinine Clear Calc Drug Dose 103.2 ml/min Estimated GFR () 100.7 Estimated GFR (Non- 86.9 BUN/Creatinine Ratio 7.3 (10-20) Calcium Level 9.6 mg/dl (8.5-10.1) Total Bilirubin 0.4 mg/dl (0.2-1) Direct Bilirubin 0.1 mg/dl (0-0.2) Aspartate Amino Transf (AST/SGOT) 11 U/L (15-37) Alanine Aminotransferase (ALT/SGPT) 22 U/L (12-78) Alkaline Phosphatase 99 U/L (45-117) Total Protein 7.6 gm/dl (6.4-8.2) Albumin 4.1 gm/dl (3.4-5.0) Lipase 106 U/L (73-393) Laboratory results as reviewed by me. Medications Administered Medications (Trade) Dose Ordered Sig/Jean Claude Route Start Time Stop Time Status Last Admin Dose Admin Ondansetron HCl (Zofran Inj) 4 mg NOW STAT IV 03/22/17 18:14 03/22/17 18:15 DC 03/22/17 18:41 4 MG Sodium Chloride 1,000 ml @ 999 mls/hr Q1H1M STAT IV 03/22/17 18:14 03/22/17 19:14 DC 03/22/17 18:42 999 MLS/HR Ketorolac Tromethamine (Toradol Inj) 10 mg NOW STAT IV 03/22/17 18:14 03/22/17 18:15 DC 03/22/17 18:41 10 MG Hyoscyamine Sulfate (Levsin Tab) 0.125 mg NOW STAT SL 03/22/17 20:30 03/22/17 20:32 DC 03/22/17 20:43 0.125 MG ED Course 180: The patient was evaluated in room C4. A complete history and physical exam was performed. 1813: Toradol Inj 10mg IV, Sodium Chloride 1000 ml @ 999 mls/hr IV, Zofran Inj 4mg IV. 1938: I reevaluated and updated the patient. She states that there is absolutely no chance that she is and declines testing before her CT. 2029: Levsin Tab 0.125mg SL. 2029: I reevaluated the patient and discussed her results She denies any urinary symptoms and cant give a urine sample so we will cancel the UA as she has had pain for over a month. She has Phenergan at home for nausea. 2037: Upon reevaluation, the patient appeared to have improvement of her symptoms. I discussed tonight's findings with the patient. She verbalized agreement of the treatment plan. The patient was discharged home. Medical Decision This is a 36-year-old female who presents with diarrhea, vomiting and abdominal pain. Differential diagnosis includes food borne illness, gastroenteritis, colitis, irritable bowel syndrome, inflammatory bowel disease, appendicitis. I did perform a limited focused review of portions of the patient's old chart on the electronic medical record. The patient was seen here on the for abdominal pain and was treated with Dilaudid and Toradol. She was discharged home. She did have a CT of abdomen/pelvis in January which showed no acute process. Medication Reconciliation: I attest that I have personally reviewed the patient' s current medication list. Blood Pressure Screening: Patient was found to have an elevated blood pressure and was referred to their primary doctor for recheck and further treatment. I did evaluate the patient as noted above. The patient is presenting with pain in her abdomen with diarrhea and vomiting. She has had the pain for about a month and it got worse recently. She is tender in the right abdomen. IV access was established. I did treat her with IV Zofran, Toradol and normal saline. I did order a urinalysis but the patient was unable to give us a sample. She denies any chance of and any urinary symptoms. She was okay with having a CT scan done without a test. I did order and review the patient's blood work as noted in the electronic medical record. Her white blood cell count is not elevated. I did order a CT of the abdomen and pelvis. I did review the images myself as well as the radiology report as described above. There is no evidence of acute abnormality. The appendix was visualized and normal. I did discuss the test results with the patient. She was given Levsin for discomfort and advised follow up with her GI doctor. She was discharged in good condition. Impression Primary Impression: Right sided abdominal pain Additional Impression: Vomiting and diarrhea Scribe Attestation The scribe's documentation has been prepared under my direct and personally reviewed by me in its entirety. I confirm that the note above accurately reflects all work, treatment, procedures, and medical decision making performed by me. Departure Information Dispostion Home / Self-Care Referrals No Doctor, Assigned (PCP) Forms Call Back Authorization, HOME CARE DOCUMENTATION FORM, IMPORTANT VISIT INFORMATION Patient Instructions ED Abdominal Pain Unkn Cause, My [facility] Additional Instructions You have been examined and treated today on an emergency basis only. This is not a substitute for, or an effort to provide, complete comprehensive medical care. It is impossible to recognize and treat all injuries or illnesses in a single emergency department visit. It is therefore important that you follow up closely with your physician. Call as soon as possible for an appointment. Return for worsening symptoms or if you develop any other concerning symptoms. Problem Qualifiers
== END 2017-03-22 20:58 | disposition home or self-care (01) ==
LOC: C.EDB 17:57 → C.EDC 20:58
DX: R10.11 Right upper quadrant pain (principal); R11.10 Vomiting, unspecified; R19.7 Diarrhea, unspecified; E03.9 Hypothyroidism, unspecified; K56.60 Unspecified intestinal obstruction; K21.9 Gastro-esophageal reflux disease without esophagitis; F32.9 Major depressive disorder, single episode, unspecified; E28.2 Polycystic ovarian syndrome; G89.29 Other chronic pain; Z90.49 Acquired absence of other specified parts of digestive tract; Z98.890 Other specified postprocedural states; Z79.899 Other long term (current) drug therapy; Z88.5 Allergy status to narcotic agent; Z88.8 Allergy status to other drugs, medicaments and biological substances; Z80.9 Family history of malignant neoplasm, unspecified; Z83.3 Family history of diabetes mellitus; Z82.49 Family history of ischemic heart disease and other diseases of the circulatory system

== ENCOUNTER 2017-05-29 00:03 | Emergency (ER) | payer OTHER ==
[~2017-05-29] VITALS: Ht 167.6 cm; Wt 96.1 kg
[~2017-05-29 00:03] MED LIST changes: -PROP10TA7 PO
[2017-05-29 00:10] VITALS: TEMP 36.9; Ht 167.6 cm; Wt 96.1 kg
[2017-05-29] MEDS ORDERED: KETOROLAC TROMETHAMINE 30 MG/ML VIAL IV STA (00:38)
[2017-05-29] MEDS ORDERED: ACETAMINOPHEN 500 MG TAB PO STA (00:38)
[2017-05-29] MEDS ORDERED: METOCLOPRAMIDE HCL INJ 5 MG/ML 2 ML VIAL IV STA (00:38)
[2017-05-29] MEDS ORDERED: MAGNESIUM SULFATE 1GM / D5W 1 GM BAG IV STA (00:38)
[2017-05-29] MEDS ORDERED: NMN10 PO (00:57)
[2017-05-29] MEDS ORDERED: ATR25 PO (00:58)
--- NOTE | 2017-05-29 01:26 | EMERGENCY ROOM VISIT NOTE ---
History Report prepared by Dion: Clari Jackson Under the Supervision of: Dr. Jeffery Gore M.D. First contact with patient: 00:21 Chief Complaint: BACK PAIN Stated Complaint: BACK PAIN AND MIGRAINE History of Present Illness The patient is a 36 year old female with a past medical history of back pain who presents to the ED with a cc of an episode of back pain beginning five days ago She notes that she went to Urgent Care five days ago and they gave her steroids. She reports that the steroids and the medication she has for migraines with no relief. Positive worsening with movement and headache. Negative urinary symptoms and cause of back pain. She currently rates her pain as an 8/10 in severity. The patient notes her LNMP was May 07. Source of History: patient Onset: five days ago Position: back Symptom Intensity: 8/10 Timing: other (episode) Modifying Factors (Worsening): movement Associated Symptoms: + headache, No urinary symptoms Review of Systems See HPI for pertinent positives and negatives. A total of ten systems were reviewed and were otherwise negative. Past Medical & Surgical Medical Problems: (1) Chronic chest pain (2) Chronic neck pain (3) Depression (4) Gastroesophageal reflux disease (5) Hypothyroidism (6) Migraine (7) Migraine without aura (8) Partial small bowel obstruction (9) Polycystic ovaries (10) Right ovarian cyst Surgical Problems: (1) H/O sinus surgery (2) S/P cholecystectomy Family History Cancer Diabetes mellitus FHx: alcoholism Heart disease Hypertension Social History Smoking Status: Never Smoker Alcohol Use: none Drug Use: none Marital Status: single, in relationship Housing Status: lives with family Occupation Status: unemployed Current/Historical Medications Scheduled Amlodipine (Norvasc), 5 MG PO DAILY Atenolol (Tenormin), 25 MG PO QPM Duloxetine HCl (Duloxetine HCl), 90 MG PO HS Ergocalciferol (Vitamin D 69199 Unit), 1 TAB PO WK Fish Oil (Elba-3), 1 CAP PO DAILY Folic Acid (Folvite), 400 MCG PO DAILY Levothyroxine Sodium (Levothyroxine Sodium), 50 MCG PO DAILY Magnesium Gluconate (Mag-G), 125 MG PO DAILY Memantine (Namenda), 10 MG PO BID Metformin HCl (Metformin HCl), 500 MG PO BIDM Multivitamins/Minerals (Mvi With Minerals), 1 TAB PO DAILY Pantoprazole (Protonix), 40 MG PO BID Potassium Chloride Microencaps (Potassium Chloride Er), 20 MEQ PO HS Sennosides-Docusate Sodium (Senokot S), 2 TAB PO BID Tizanidine (Tizanidine HCl), 4-8 MG PO HS Trazodone Hcl (Trazodone), 50 MG PO HS Zolmitriptan (Zolmitriptan), 2.5-5 MG PO UD Scheduled PRN Acetamin/Butalbital/Caffeine (Fioricet), 1 TAB PO Q6H PRN for Pain Baclofen (Baclofen), 20 MG PO TID PRN for Muscle Spasms Buspirone HCl (Buspirone HCl), 5-10 MG PO TID PRN for Anxiety Fluticasone Propionate (Nasal) (Flonase Allergy Relief), 2 SPRAY YARELY BID PRN for Hydroxyzine HCl (Hydroxyzine HCl), 25 MG PO TID PRN for with baclofen Hyoscyamine Sulfate (Hyoscyamine Sulfate), 0.125 MG PO Q4H PRN for Abdominal Pain Metoclopramide Hcl (Reglan), 5 MG PO TID PRN for Nausea Promethazine (Phenergan Suppository), 25 MG HI Q6H PRN for Nausea Promethazine HCl (Promethazine HCl), 25 MG PO HS PRN for Nausea or Migraine Allergies Coded Allergies: Cephalexin (Verified Allergy, Mild, rash, 05/29/17) Morphine (Verified Allergy, Unknown, HIVES/ITCHING, N&V, 05/29/17) Topiramate (Verified Allergy, Unknown, neurological symptoms, 05/29/17) Physical Exam Vital Signs Date Time Temp Pulse Resp B/P (MAP) Pulse Ox O2 Delivery O2 Flow Rate FiO2 05/29/17 00:10 36.9 97 20 150/98 97 Room Air Physical Exam GENERAL: Awake, alert, well-appearing, NAD HENT: Normocephalic, atraumatic. EYES: Normal conjunctiva. Sclera non-icteric. NECK: Supple. No nuchal rigidity. FROM. RESPIRATORY: CTAB, no rhonchi, wheezing, crackles CARDIAC: RRR, no MRG ABDOMEN: Soft, NTND, BS+ MSK: No chest wall TTP, no LE edema, right sided lower lumbar tenderness without erythema or calor, no saddle anesthesia. No numbness, tingling, or weakness. NEURO: GCS 15, CN 2-12 intact, moves all 4s on command, good finger to nose, no pronator drift, good strength in all extremities. SKIN: No rash or jaundice noted. Medical Decision & Procedures Laboratory Results 05/29/17 01:00 Red Blood Count 4.52, Mean Corpuscular Volume 87.4, Mean Corpuscular Hemoglobin 29.9, Mean Corpuscular Hemoglobin Concent 34.2, Mean Platelet Volume 9.9, Neutrophils (%) (Auto) 67.1, Lymphocytes (%) (Auto) 24.0, Monocytes (%) (Auto) 7.5, Eosinophils (%) (Auto) 0.6, Basophils (%) (Auto) 0.2, Neutrophils # (Auto) 8.48, Lymphocytes # (Auto) 3.04, Monocytes # (Auto) 0.95, Eosinophils # (Auto) 0.08, Basophils # (Auto) 0.03 05/29/17 01:00 Test 05/29/17 01:00 White Blood Count 12.65 K/uL (4.8-10.8) Red Blood Count 4.52 M/uL (4.2-5.4) Hemoglobin 13.5 g/dL (12.0-16.0) Hematocrit 39.5 % (37-47) Mean Corpuscular Volume 87.4 fL (80-100) Mean Corpuscular Hemoglobin 29.9 pg (25-34) Mean Corpuscular Hemoglobin Concent 34.2 g/dl (32-36) Platelet Count 291 K/uL (130-400) Mean Platelet Volume 9.9 fL (7.4-10.4) Neutrophils (%) (Auto) 67.1 % Lymphocytes (%) (Auto) 24.0 % Monocytes (%) (Auto) 7.5 % Eosinophils (%) (Auto) 0.6 % Basophils (%) (Auto) 0.2 % Neutrophils # (Auto) 8.48 K/uL (1.4-6.5) Lymphocytes # (Auto) 3.04 K/uL (1.2-3.4) Monocytes # (Auto) 0.95 K/uL (0.11-0.59) Eosinophils # (Auto) 0.08 K/uL (0-0.5) Basophils # (Auto) 0.03 K/uL (0-0.2) RDW Standard Deviation 42.5 fL (36.4-46.3) RDW Coefficient of Variation 13.3 % (11.5-14.5) Immature Granulocyte % (Auto) 0.6 % Immature Granulocyte # (Auto) 0.07 K/uL (0.00-0.02) Urine Color YELLOW Urine Appearance CLOUDY (CLEAR) Urine pH 6.5 (4.5-7.5) Urine Specific Casey 1.012 (1.000-1.030) Urine Protein NEG (NEG) Urine Glucose (UA) NEG (NEG) Urine Ketones NEG (NEG) Urine Occult Blood NEG (NEG) Urine Nitrite NEG (NEG) Urine Bilirubin NEG (NEG) Urine Urobilinogen NEG (NEG) Urine Leukocyte Esterase TRACE (NEG) Urine WBC (Auto) 1-5 /hpf (0-5) Urine RBC (Auto) 0-4 /hpf (0-4) Urine Hyaline Casts (Auto) 1-5 /lpf (0-5) Urine Epithelial Cells (Auto) >30 /lpf (0-5) Urine Bacteria (Auto) NEG (NEG) Urine Test NEG (NEG) Anion Gap 9.0 mmol/L (3-11) Est Creatinine Clear Calc Drug Dose 96.7 ml/min Estimated GFR () 90.5 Estimated GFR (Non- 78.1 BUN/Creatinine Ratio 19.1 (10-20) Calcium Level 9.6 mg/dl (8.5-10.1) Laboratory results reviewed by me Medications Administered Medications (Trade) Dose Ordered Sig/Jean Claude Route Start Time Stop Time Status Last Admin Dose Admin Sodium Chloride 1,000 ml @ 999 mls/hr Q1H1M IV 05/29/17 00:45 05/29/17 02:23 DC 05/29/17 01:32 999 MLS/HR Metoclopramide HCl (Reglan Inj) 20 mg NOW STAT IV 05/29/17 00:38 05/29/17 00:42 DC 05/29/17 01:31 20 MG Magnesium Sulfate (Magnesium Sulfate) 1 gm NOW STAT IV 05/29/17 00:38 05/29/17 00:42 DC 05/29/17 01:30 1 GM Acetaminophen (Tylenol Tab) 1,000 mg NOW STAT PO 05/29/17 00:38 05/29/17 00:42 DC 05/29/17 01:31 1,000 MG Ketorolac Tromethamine (Toradol Inj) 30 mg NOW STAT IV 05/29/17 00:38 05/29/17 00:42 DC 05/29/17 01:31 30 MG Acetaminophen/ Butalbital/ Caffeine (Fioricet Tab) 1 tab NOW STAT PO 05/29/17 02:15 05/29/17 02:16 DC 05/29/17 02:23 1 TAB Cyclobenzaprine HCl (Flexeril Tab) 10 mg ONE STAT PO 05/29/17 02:15 05/29/17 02:16 DC 05/29/17 02:22 10 MG ED Course 0026: The patient was evaluated in room A4B. A complete history and physical exam was performed. Medical Decision Differential diagnosis: Etiologies such as musculoskeletal, disc herniation, fracture, aortic disease, metastatic disease, cord compression, discitis, infection, renal colic, gastrointestinal, acute exacerbation of chronic back pain, sciatica, cauda equina, as well as others were entertained. Patient was seen and evaluated at the bedside. Patient states that she happened have some low back pain which she is unsure what caused it but was seen at an outside urgent care at which point she was given steroids. Patient states that she is now had a migrainous headache for approximately 5 days but is not taking any medications. Patient does see a chronic headache specialist. Less likely ICH. No meningismus, neck full ROM, no fever. Patient will has no focal neuro deficits on exam and denies any numbness tingling or weakness. Patient did not have any bowel or bladder incontinence has no history of IV drug abuse or weight loss or fever. Less likely abscess or cauda equina. Patient did have a with blood cell count 12,000 but is likely related to steroid use. Patient had a negative UA and UPT. Patient's headache was mildly improved. 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 He agreed with plan of care was safely discharged home. Impression Primary Impression: Back pain Additional Impression: Migraine Scribe Attestation The scribe's documentation has been prepared under my direction and personally reviewed by me in its entirety. I confirm that the note above accurately reflects all work, treatment, procedures, and medical decision making performed by me. Departure Information Dispostion Home / Self-Care Prescriptions Acetamin/Butalbital/Caffeine (FIORICET) 1 Ea Tab 1 TAB PO Q6H Y for Pain, #12 TAB Prov: Jeffery Gore M.D. 05/29/17 Referrals Melania Zhou D.O. (PCP) Patient Instructions Back Pain Relieve, ED Low Back Pain Injury, Exercises Back Side Stretch, Exercises Lower Back Rotation, My [facility] Additional Instructions Please return to the emergency department if you have worsening or recurrent symptoms not amenable to at-home treatment. Please call for a follow-up appointment with her primary care physician. Please take your medications as prescribed. If you have other concerns and/or complaints please feel free to also call your primary care physician's office or return the ED for further evaluation, management, and treatment. You may take 600 mg Ibuprofen every 6 hours as needed for pain with food for no more than 2 consecutive days. You may take tylenol 650 mg every 6 hours as needed for pain. You may take motrin and tylenol separately or at the same time. Try taking butalbital for breakthrough pain. You have been examined and treated today on an emergency basis only. This is not a substitute for, or an effort to provide, complete comprehensive medical care. It is impossible to recognize and treat all injuries or illnesses in a single emergency department visit. It is therefore important that you follow up closely with [facility]. Call as soon as possible for an appointment. Thank you for your time and consideration. I look forward to speaking with you again soon. Please don't hesitate to call us if you have any questions. Problem Qualifiers Primary Impression: Back pain Back pain location: low back pain Chronicity: chronic Back pain laterality : right Sciatica presence: without sciatica Qualified Codes: M54.5 - Low back pain; G89.29 - Other chronic pain Additional Impression: Migraine Migraine type: unspecified Status migrainosus presence: without status migrainosus Intractability: not intractable Qualified Codes: G43.909 - Migraine, unspecified, not intractable, without status migrainosus
[2017-05-29 01:31] LABS: BASO % 0.2 %; BASO ABS # 0.03 K/uL (0-0.2); COMPLETE YES; EOS % 0.6 %; HEMATOCRIT 39.5 % (37-47); IG% 0.6 %; LYMPH ABS # 3.04 K/uL (1.2-3.4); MEAN CELL VOLUME 87.4 fL (80-100); MEAN CORPUSCULAR HEMOGLOBIN 29.9 pg (25-34); MEAN CORPUSCULAR HGB CONC 34.2 g/dl (32-36); MEAN PLATELET VOLUME 9.9 fL (7.4-10.4); MONO % 7.5 %; NEUT % 67.1 %; PLATELET COUNT 291 K/uL (130-400); RED BLOOD COUNT 4.52 M/uL (4.2-5.4); WHITE BLOOD COUNT 12.65 K/uL (4.8-10.8)
[2017-05-29] MEDS: SODIUM CHLORIDE 0.9% 1000ML 1,000 ML IV SCH ×2 (01:32→01:59)
[2017-05-29 01:50] LABS: URINE APPEARANCE CLOUDY (CLEAR); URINE BILIRUBIN NEG (NEG); URINE COLOR YELLOW; URINE EPITHELIAL CELL AUTO >30 /lpf (0-5); URINE NITRITE NEG (NEG); URINE PH 6.5 (4.5-7.5); URINE SPECIFIC GRAVITY 1.012 (1.000-1.030); UROBILINOGEN NEG (NEG); ZZUR CULT IF INDIC CLEAN CATCH NO
[2017-05-29 01:55] LABS: BLOOD UREA NITROGEN 18 mg/dl (7-18); BUN/CREATININE RATIO 19.1 (10-20); CALCIUM 9.6 mg/dl (8.5-10.1); CARBON DIOXIDE 24 mmol/L (21-32); CHLORIDE 107 mmol/L (98-107); CREATININE 0.94 mg/dl (0.60-1.20); GLUCOSE 99 mg/dl (70-99); SODIUM 140 mmol/L (136-145)
[2017-05-29 01:57] LABS: MANUAL MICROSCOPIC REQUIRED? NO; REVIEW REQ? NO
[2017-05-29] MEDS ORDERED: BUTALBITAL/ACETAMIN/CAFFEINE TAB PO STA (02:15)
[2017-05-29] MEDS ORDERED: CYCLOBENZAPRINE HCL 5 MG TAB PO STA (02:15)
[2017-05-29] MEDS ORDERED: FRCT/ PO (02:17)
[2017-05-29 02:26] VITALS: BP 114/78; PULSE 77; O2SAT 95
== END 2017-05-29 02:53 | disposition home or self-care (01) ==
LOC: C.EDB 00:04 → C.EDA 02:53
DX: M54.9 Dorsalgia, unspecified (principal); G43.909 Migraine, unspecified, not intractable, without status migrainosus; K21.9 Gastro-esophageal reflux disease without esophagitis; E03.9 Hypothyroidism, unspecified; F32.9 Major depressive disorder, single episode, unspecified; K56.60 Unspecified intestinal obstruction; E28.2 Polycystic ovarian syndrome; N83.201 Unspecified ovarian cyst, right side; G89.29 Other chronic pain; Z90.49 Acquired absence of other specified parts of digestive tract; Z98.890 Other specified postprocedural states; Z79.84 Long term (current) use of oral hypoglycemic drugs; Z79.899 Other long term (current) drug therapy; Z88.5 Allergy status to narcotic agent; Z88.8 Allergy status to other drugs, medicaments and biological substances; Z80.9 Family history of malignant neoplasm, unspecified; Z83.3 Family history of diabetes mellitus; Z82.49 Family history of ischemic heart disease and other diseases of the circulatory system; Z81.1 Family history of alcohol abuse and dependence

== ENCOUNTER 2017-06-28 16:49 | Emergency (ER) | payer OTHER ==
[~2017-06-28] VITALS: Ht 167.6 cm; Wt 98.4 kg
[~2017-06-28 16:49] MED LIST changes: +ATR25 PO; -ERGO1CAP41 PO; +ERGO500011 PO; +FRCT/ PO; +NMN10 PO
[2017-06-28 16:52] VITALS: TEMP 37; Ht 167.6 cm; Wt 98.4 kg
[2017-06-28] MEDS ORDERED: GI COCKTAIL PO ONE (17:15)
[2017-06-28] MEDS ORDERED: ALUMINUM/MAGNESIUM SUSP 30 ML UDC ONE (17:16)
[2017-06-28] MEDS ORDERED: LIDOCAINE HCL 2% VISC SOLN 20 ML UDC ONE (17:16)
[2017-06-28 17:24] LABS: BASO % 0.3 %; BASO ABS # 0.02 K/uL (0-0.2); COMPLETE YES; EOS % 1.7 %; IG% 0.3 %; LYMPH % 24.6 %; LYMPH ABS # 1.78 K/uL (1.2-3.4); MEAN CELL VOLUME 86.9 fL (80-100); MEAN CORPUSCULAR HEMOGLOBIN 29.3 pg (25-34); MEAN CORPUSCULAR HGB CONC 33.8 g/dl (32-36); MEAN PLATELET VOLUME 9.2 fL (7.4-10.4); MONO % 5.5 %; NEUT % 67.6 %; PLATELET COUNT 245 K/uL (130-400); RED BLOOD COUNT 4.26 M/uL (4.2-5.4); WHITE BLOOD COUNT 7.25 K/uL (4.8-10.8)
--- NOTE | 2017-06-28 17:40 | DIAGNOSTIC IMAGING REPORT ---
ABDOMEN 2VIEW W/PA CHEST RTN CLINICAL HISTORY: Epigastric pain after endoscopy pain COMPARISON STUDY: 03/20/2017 FINDINGS: The soft tissues, psoas shadows, renal outlines and intestinal gas pattern appear normal. There is no evidence for bowel obstruction. There is no evidence for free intraperitoneal air. No abnormal abdominal calcifications are seen. A frontal view of the chest was performed and is unremarkable. Mild nonobstructive small bowel ileus IMPRESSION: Mild nonobstructive small bowel ileus. Otherwise negative study The above report was generated using voice recognition software. It may contain grammatical, syntax or spelling errors. Electronically signed by: Ajay Beth M.D. 06/28/2017 5:39 PM Dictated Date/Time: 06/28/2017 5:38 PM
[2017-06-28 17:44] LABS: BUN/CREATININE RATIO 6.5 (10-20); CALCIUM 8.5 mg/dl (8.5-10.1); CREATININE 0.96 mg/dl (0.60-1.20); POTASSIUM 3.6 mmol/L (3.5-5.1)
[2017-06-28 18:42] VITALS: BP 115/82; PULSE 81; O2SAT 95
--- NOTE | 2017-06-28 21:56 | EMERGENCY ROOM VISIT NOTE ---
History First contact with patient: 16:56 Chief Complaint: GI ASSESSMENT Stated Complaint: PAIN- PHYSICIAN REFERRED Nursing Triage Summary: Patient had an upper GI completed on Saturday at [facility]. Patient had a botox injection during the scope. Patient reports persistent epigastric pain and nausea since then. History of Present Illness The patient is a 37 year old female who presents to the Emergency Room with complaints of epigastric abdominal pain for the past 2 days. The patient states that she had an upper endoscopy performed at [facility]'s office, and afterwards had pain following the recovery from sedation. The patient has not had fever or chills. No difficulty breathing or lower abdominal pain. She is nauseated without vomiting. She contacted their office , and was referred to the ER for further management. She does take Protonix twice daily. She does not have other complaints. She rates her discomfort a 5/ 10. Review of Systems More than 10 systems were reviewed and otherwise negative with the exception of history of present illness. Past Medical/Surgical History Medical Problems: (1) Chronic chest pain (2) Chronic neck pain (3) Depression (4) Gastroesophageal reflux disease (5) Hypothyroidism (6) Migraine (7) Migraine without aura (8) Partial small bowel obstruction (9) Polycystic ovaries (10) Right ovarian cyst Surgical Problems: (1) H/O sinus surgery (2) S/P cholecystectomy Family History Cancer Diabetes mellitus FHx: alcoholism Heart disease Hypertension Social History Smoking Status: Never Smoker Alcohol Use: none Drug Use: none Marital Status: single, in relationship Housing Status: lives with family Occupation Status: unemployed Current/Historical Medications Scheduled Amlodipine (Norvasc), 5 MG PO DAILY Atenolol (Tenormin), 25 MG PO QPM Duloxetine HCl (Duloxetine HCl), 90 MG PO HS Ergocalciferol (Vitamin D 05848 Unit), 1 TAB PO WK Fish Oil ([place]-3), 1 CAP PO DAILY Folic Acid (Folvite), 400 MCG PO DAILY Levothyroxine Sodium (Levothyroxine Sodium), 50 MCG PO DAILY Magnesium Gluconate (Mag-G), 125 MG PO DAILY Memantine (Namenda), 10 MG PO BID Metformin HCl (Metformin HCl), 500 MG PO BIDM Multivitamins/Minerals (Mvi With Minerals), 1 TAB PO DAILY Pantoprazole (Protonix), 40 MG PO BID Potassium Chloride Microencaps (Potassium Chloride Er), 20 MEQ PO HS Sennosides-Docusate Sodium (Senokot S), 2 TAB PO BID Tizanidine (Tizanidine HCl), 4-8 MG PO HS Trazodone Hcl (Trazodone), 50 MG PO HS Zolmitriptan (Zolmitriptan), 2.5-5 MG PO UD Scheduled PRN Acetamin/Butalbital/Caffeine (Fioricet), 1 TAB PO Q6H PRN for Pain Baclofen (Baclofen), 20 MG PO TID PRN for Muscle Spasms Buspirone HCl (Buspirone HCl), 5-10 MG PO TID PRN for Anxiety Fluticasone Propionate (Nasal) (Flonase Allergy Relief), 2 SPRAY YARELY BID PRN for Hydroxyzine HCl (Hydroxyzine HCl), 25 MG PO TID PRN for with baclofen Hyoscyamine Sulfate (Hyoscyamine Sulfate), 0.125 MG PO Q4H PRN for Abdominal Pain Metoclopramide Hcl (Reglan), 5 MG PO TID PRN for Nausea Promethazine (Phenergan Suppository), 25 MG [place] Q6H PRN for Nausea Promethazine HCl (Promethazine HCl), 25 MG PO HS PRN for Nausea or Migraine Physical Exam Vital Signs Date Time Temp Pulse Resp B/P (MAP) Pulse Ox O2 Delivery O2 Flow Rate FiO2 06/28/17 18:42 81 18 115/82 95 Room Air 06/28/17 16:52 37.0 80 18 143/93 99 Room Air Physical Exam VITALS: Vitals are noted on the nurse's note and reviewed by myself. Vital signs stable. GENERAL: Well-developed, well-nourished, white female, who is in no acute distress and resting comfortably. Patient is cooperative with the examination. NECK: Supple without nuchal rigidity. No lymphadenopathy. No thyromegaly. Cervical spine is nontender. HEART: Regular rate and rhythm without murmurs gallops or rubs. LUNGS: Clear to auscultation bilaterally without wheezes, rales or rhonchi. No retractions or accessory muscle use. ABDOMEN: Positive normal bowel sounds x 4. Soft, nontender, without masses or organomegaly. No guarding or rebound tenderness. MUSCULOSKELETAL: No muscle atrophy, erythema, or edema noted. Full range of motion without joint tenderness in all extremities. NEURO: Patient was alert and oriented to person place and time. CN II through XII grossly intact. Medical Decision & Procedures ER Provider Diagnostic Interpretation: ABDOMEN 2VIEW W/PA CHEST RTN CLINICAL HISTORY: Epigastric pain after endoscopy pain COMPARISON STUDY: 03/20/2017 FINDINGS: The soft tissues, psoas shadows, renal outlines and intestinal gas pattern appear normal. There is no evidence for bowel obstruction. There is no evidence for free intraperitoneal air. No abnormal abdominal calcifications are seen. A frontal view of the chest was performed and is unremarkable. Mild nonobstructive small bowel ileus IMPRESSION: Mild nonobstructive small bowel ileus. Otherwise negative study Laboratory Results 06/28/17 17:10 Red Blood Count 4.26, Mean Corpuscular Volume 86.9, Mean Corpuscular Hemoglobin 29.3, Mean Corpuscular Hemoglobin Concent 33.8, Mean Platelet Volume 9.2, Neutrophils (%) (Auto) 67.6, Lymphocytes (%) (Auto) 24.6, Monocytes (%) (Auto) 5.5, Eosinophils (%) (Auto) 1.7, Basophils (%) (Auto) 0.3, Neutrophils # (Auto) 4.91, Lymphocytes # (Auto) 1.78, Monocytes # (Auto) 0.40, Eosinophils # (Auto) 0.12, Basophils # (Auto) 0.02 06/28/17 17:10 Test 06/28/17 17:10 White Blood Count 7.25 K/uL (4.8-10.8) Red Blood Count 4.26 M/uL (4.2-5.4) Hemoglobin 12.5 g/dL (12.0-16.0) Hematocrit 37.0 % (37-47) Mean Corpuscular Volume 86.9 fL (80-100) Mean Corpuscular Hemoglobin 29.3 pg (25-34) Mean Corpuscular Hemoglobin Concent 33.8 g/dl (32-36) Platelet Count 245 K/uL (130-400) Mean Platelet Volume 9.2 fL (7.4-10.4) Neutrophils (%) (Auto) 67.6 % Lymphocytes (%) (Auto) 24.6 % Monocytes (%) (Auto) 5.5 % Eosinophils (%) (Auto) 1.7 % Basophils (%) (Auto) 0.3 % Neutrophils # (Auto) 4.91 K/uL (1.4-6.5) Lymphocytes # (Auto) 1.78 K/uL (1.2-3.4) Monocytes # (Auto) 0.40 K/uL (0.11-0.59) Eosinophils # (Auto) 0.12 K/uL (0-0.5) Basophils # (Auto) 0.02 K/uL (0-0.2) RDW Standard Deviation 44.2 fL (36.4-46.3) RDW Coefficient of Variation 14.2 % (11.5-14.5) Immature Granulocyte % (Auto) 0.3 % Immature Granulocyte # (Auto) 0.02 K/uL (0.00-0.02) Anion Gap 12.0 mmol/L (3-11) Est Creatinine Clear Calc Drug Dose 94.9 ml/min Estimated GFR () 87.6 Estimated GFR (Non- 75.6 BUN/Creatinine Ratio 6.5 (10-20) Calcium Level 8.5 mg/dl (8.5-10.1) Total Bilirubin 0.4 mg/dl (0.2-1) Aspartate Amino Transf (AST/SGOT) 15 U/L (15-37) Alanine Aminotransferase (ALT/SGPT) 23 U/L (12-78) Alkaline Phosphatase 88 U/L (45-117) Total Protein 7.7 gm/dl (6.4-8.2) Albumin 3.9 gm/dl (3.4-5.0) Globulin 3.8 gm/dl (2.5-4.0) Albumin/Globulin Ratio 1.0 (0.9-2) Lipase 106 U/L (73-393) Medications Administered Medications (Trade) Dose Ordered Sig/Jean Claude Route Start Time Stop Time Status Last Admin Dose Admin Al Hydroxide/Mg Hydroxide (Maalox Susp) 30 ml STK-MED ONCE .ROUTE 06/28/17 17:16 06/28/17 17:17 DC 06/28/17 17:19 30 ML Lidocaine HCl (Viscous Lidocaine 2% Soln) 20 ml STK-MED ONCE .ROUTE 06/28/17 17:16 06/28/17 17:17 DC 06/28/17 17:19 20 ML ED Course Physical exam and history were performed. Nursing notes, EMR, and Medication List were personally reviewed. Patient appears to have some epigastric abdominal pain after an upper endoscopy 2 days ago. The patient does not appear toxic on examination. She has very mild epigastric tenderness on palpation. IV access was established and labs were obtained. The patient was given a GI cocktail here in the department. Plain films were performed. I was able to review the endoscopy report, and evidently the endoscopy was fairly benign. They did take a few biopsies, and did inject the pylorus with Botox. The patient's blood work is as above and was reviewed. She does not have a significantly elevated white blood cell count, gross anemia, bandemia, or significant electrolyte imbalance. Lipase and transaminases are nondiagnostic. Plain films do not show evidence of free air or other obvious etiology for the patient's discomfort. She did feel better after the GI cocktail. Overall the patient appears well for discharge home and I suspect most discomfort is from the mechanical nature of the endoscopy. She did have biopsies which may also be continuing to her discomfort. The patient has several different medications at home to help with her symptoms. She does have Protonix twice daily as well as multiple antiemetics. I recommend that she focus on a soft food and liquid diet and follow with GI. She was otherwise invited back to the ER with any new, worsening, or concerning symptoms. The chart was completed utilizing [employer] Speech Voice Recognition Software. Grammatical errors, random word insertions, pronoun errors, and incomplete sentences are an occasional consequence of this system due to software limitations, ambient noise, and hardware issues. Any formal questions or concerns about the content, text, or information contained within the body of this dictation should be directly addressed to the provider for clarification. . Medical Decision Differential diagnosis: Etiologies such as postprocedural discomfort, perforation, appendicitis, diverticulitis, PUD, biliary pathology, UTI, pancreatitis, obstruction, mesenteric ischemia, aortic pathology, infections, inflammatory bowel disease, renal colic, as well as others were entertained. Impression Primary Impression: Epigastric abdominal pain Departure Information Dispostion Home / Self-Care Condition GOOD Forms HOME CARE DOCUMENTATION FORM, IMPORTANT VISIT INFORMATION Patient Instructions My [facility] Additional Instructions You were seen and evaluated today on an emergency basis only. This is not a substitute for, or an effort to provide, complete comprehensive medical care. It is not possible to recognize and treat all injuries or illnesses in a single emergency department visit. For this reason it is recommended that you followup with your GI specialist for ongoing care and evaluation. Drink plenty of fluids and remain well hydrated. You are welcome to return to the emergency department anytime with new, worsening, or concerning symptoms.
== END 2017-06-28 18:44 | disposition home or self-care (01) ==
LOC: C.EDB 16:50
DX: R10.13 Epigastric pain (principal); K21.9 Gastro-esophageal reflux disease without esophagitis; E03.9 Hypothyroidism, unspecified; K56.690 Other partial intestinal obstruction; Z98.890 Other specified postprocedural states; Z90.49 Acquired absence of other specified parts of digestive tract; Z83.3 Family history of diabetes mellitus; Z81.1 Family history of alcohol abuse and dependence; Z82.49 Family history of ischemic heart disease and other diseases of the circulatory system

== ENCOUNTER 2017-08-04 15:07 | Emergency (ER) | payer OTHER ==
[~2017-08-04] VITALS: Ht 167.6 cm; Wt 99.6 kg
[~2017-08-04 15:07] MED LIST changes: -FRCT/ PO; -LVS125 PO; -METO1TAB54 PO; +QVRINH80 INH; -SENN-65 PO
[2017-08-04 15:32] VITALS: TEMP 37.1; Ht 167.6 cm; Wt 99.6 kg
[2017-08-04] MEDS ORDERED: ACETAMINOPHEN 500 MG TAB PO STA (16:38)
[2017-08-04] MEDS ORDERED: KETOROLAC TROMETHAMINE 30 MG/ML VIAL IV STA (16:38)
[2017-08-04] MEDS ORDERED: DEXAMETHASONE **PF** INJ 10 MG/ML VIAL IV ONE (16:45)
[2017-08-04] MEDS ORDERED: BENZONATATE 100MG CAP PO ONE (16:45)
[2017-08-04] MEDS ORDERED: MAGN250T11 PO (16:46)
--- NOTE | 2017-08-04 16:53 | EMERGENCY ROOM VISIT NOTE ---
History Report prepared by Dion: Kingston Schneider Under the Supervision of: Dr. Jeffery Gore M.D. First contact with patient: 16:14 Chief Complaint: FLU LIKE SX Stated Complaint: DEHYDRATED,FLU,STREP POSSIBLE History of Present Illness The patient is a 37 year old white female with a past medical history of diabetes, migraines, gastroparesis thyroid problems who presents to the ED with a cc of constant generalized achiness beginning 6 days ago. She rates her discomfort as a 6/10 in severity. Positive sore throat, headache, intermittent fevers, productive cough, chest pain, nausea. Negative vomiting, tobacco and alcohol use. The patient reports that she has been taking Tylenol and Advil but denies any relief of symptoms. Source of History: patient Onset: 6 days ago Position: other (global) Symptom Intensity: 6/10 Quality: ache Timing: constant Modifying Factors (Relieving): tylenol, other (Advil) Associated Symptoms: + fevers, + headache, + sorethroat, + cough, + chest pain, + nausea, No vomiting Review of Systems See HPI for pertinent positives and negatives. A total of ten systems were reviewed and were otherwise negative. Past Medical & Surgical Medical Problems: (1) Chronic chest pain (2) Chronic neck pain (3) Depression (4) Gastroesophageal reflux disease (5) Hypothyroidism (6) Migraine (7) Migraine without aura (8) Partial small bowel obstruction (9) Polycystic ovaries (10) Right ovarian cyst Surgical Problems: (1) H/O sinus surgery (2) S/P cholecystectomy Family History Cancer Diabetes mellitus FHx: alcoholism Heart disease Hypertension Social History Smoking Status: Never Smoker Alcohol Use: none Drug Use: none Marital Status: single, in relationship Housing Status: lives with family Occupation Status: unemployed Current/Historical Medications Scheduled Amlodipine (Norvasc), 5 MG PO DAILY Atenolol (Tenormin), 25 MG PO QPM Benzocaine-Menthol (Mouth-Thro (Cepacol Sore Throat), 1 ANTONIA PO TID Duloxetine HCl (Duloxetine HCl), 90 MG PO HS Ergocalciferol (Vitamin D 22159 Unit), 1 TAB PO WK Fish Oil ([place]-3), 1 CAP PO DAILY Folic Acid (Folvite), 400 MCG PO DAILY Levothyroxine Sodium (Levothyroxine Sodium), 50 MCG PO DAILY Magnesium Gluconate (Magnesium Gluconate), 125 MG PO DAILY Memantine (Namenda), 10 MG PO BID Metformin HCl (Metformin HCl), 500 MG PO BIDM Multivitamins/Minerals (Mvi With Minerals), 1 TAB PO DAILY Pantoprazole (Protonix), 40 MG PO BID Potassium Chloride Microencaps (Potassium Chloride Er), 20 MEQ PO HS Prednisone (Prednisone), 50 MG PO DAILY Tizanidine (Tizanidine HCl), 4-8 MG PO HS Trazodone Hcl (Trazodone), 50 MG PO HS Scheduled PRN Baclofen (Baclofen), 20 MG PO TID PRN for Muscle Spasms Beclomethasone Dip (Qvar), 2 PUFFS INH BID PRN for SOB/Wheezing Buspirone HCl (Buspirone HCl), 5-10 MG PO TID PRN for Anxiety Fluticasone Propionate (Nasal) (Flonase Allergy Relief), 2 SPRAY YARELY BID PRN for Hydroxyzine HCl (Hydroxyzine HCl), 25 MG PO TID PRN for with baclofen Promethazine (Phenergan Suppository), 25 MG [place] Q6H PRN for Nausea Promethazine HCl (Promethazine HCl), 25 MG PO HS PRN for Nausea or Migraine Zolmitriptan (Zolmitriptan), 2.5-5 MG PO UD PRN for Migraine Allergies Coded Allergies: Cephalexin (Verified Allergy, Mild, rash, 08/04/17) Morphine (Verified Allergy, Unknown, HIVES/ITCHING, N&V, 08/04/17) Topiramate (Verified Allergy, Unknown, neurological symptoms, 08/04/17) Physical Exam Vital Signs Date Time Temp Pulse Resp B/P (MAP) Pulse Ox O2 Delivery O2 Flow Rate FiO2 08/04/17 19:29 78 16 144/96 95 08/04/17 18:21 72 18 145/93 94 Room Air 08/04/17 17:29 77 18 138/94 98 Room Air 08/04/17 15:32 37.1 92 16 160/96 97 Room Air Physical Exam GENERAL: Awake, alert, well-appearing, NAD HENT: Normocephalic, atraumatic. Posterior pharynx, clear, no exudate, no stridor. No posterior pharyngeal swelling. No uvular deviation. EYES: Normal conjunctiva. Sclera non-icteric. NECK: Supple. No nuchal rigidity. FROM. RESPIRATORY: CTAB, no rhonchi, wheezing, crackles CARDIAC: RRR, no MRG ABDOMEN: Soft, NTND, BS+ MSK: No chest wall TTP, no LE edema NEURO: GCS 15, CN 2-12 intact, moves all 4s on command SKIN: No rash or jaundice noted. Medical Decision & Procedures Laboratory Results 08/04/17 16:50 Red Blood Count 3.85, Mean Corpuscular Volume 88.3, Mean Corpuscular Hemoglobin 29.6, Mean Corpuscular Hemoglobin Concent 33.5, Mean Platelet Volume 9.1, Neutrophils (%) (Auto) 71.0, Lymphocytes (%) (Auto) 19.2, Monocytes (%) (Auto) 6.8, Eosinophils (%) (Auto) 1.9, Basophils (%) (Auto) 0.4, Neutrophils # (Auto) 5.83, Lymphocytes # (Auto) 1.58, Monocytes # (Auto) 0.56, Eosinophils # (Auto) 0.16, Basophils # (Auto) 0.03 08/04/17 16:50 Test 08/04/17 16:50 White Blood Count 8.22 K/uL (4.8-10.8) Red Blood Count 3.85 M/uL (4.2-5.4) Hemoglobin 11.4 g/dL (12.0-16.0) Hematocrit 34.0 % (37-47) Mean Corpuscular Volume 88.3 fL (80-100) Mean Corpuscular Hemoglobin 29.6 pg (25-34) Mean Corpuscular Hemoglobin Concent 33.5 g/dl (32-36) Platelet Count 225 K/uL (130-400) Mean Platelet Volume 9.1 fL (7.4-10.4) Neutrophils (%) (Auto) 71.0 % Lymphocytes (%) (Auto) 19.2 % Monocytes (%) (Auto) 6.8 % Eosinophils (%) (Auto) 1.9 % Basophils (%) (Auto) 0.4 % Neutrophils # (Auto) 5.83 K/uL (1.4-6.5) Lymphocytes # (Auto) 1.58 K/uL (1.2-3.4) Monocytes # (Auto) 0.56 K/uL (0.11-0.59) Eosinophils # (Auto) 0.16 K/uL (0-0.5) Basophils # (Auto) 0.03 K/uL (0-0.2) RDW Standard Deviation 45.4 fL (36.4-46.3) RDW Coefficient of Variation 14.2 % (11.5-14.5) Immature Granulocyte % (Auto) 0.7 % Immature Granulocyte # (Auto) 0.06 K/uL (0.00-0.02) Anion Gap 8.0 mmol/L (3-11) Est Creatinine Clear Calc Drug Dose 119.1 ml/min Estimated GFR () 114.3 Estimated GFR (Non- 98.6 BUN/Creatinine Ratio 9.5 (10-20) Calcium Level 8.8 mg/dl (8.5-10.1) Monoscreen NEG (NEG) Influenza Type A Antigen Neg for Influ A (NEG) Influenza Type B Antigen Neg for Influ B (NEG) Laboratory results reviewed by me Medications Administered Medications (Trade) Dose Ordered Sig/Jean Claude Route Start Time Stop Time Status Last Admin Dose Admin Ketorolac Tromethamine (Toradol Inj) 30 mg NOW STAT IV 08/04/17 16:38 08/04/17 16:40 DC 08/04/17 17:28 30 MG Acetaminophen (Tylenol Tab) 1,000 mg NOW STAT PO 08/04/17 16:38 08/04/17 16:40 DC 08/04/17 17:28 1,000 MG Dexamethasone Sodium Phosphate (Dexamethasone Inj Pf) 10 mg NOW ONCE IV 08/04/17 16:45 08/04/17 16:46 DC 08/04/17 17:28 10 MG Benzonatate (Tessalon Perles Cap) 100 mg NOW ONCE PO 08/04/17 16:45 08/04/17 16:46 DC 08/04/17 17:28 100 MG Magnesium Oxide (Mag-Ox Tab) 800 mg ONE STAT PO 08/04/17 17:43 08/04/17 17:44 DC 08/04/17 17:54 800 MG Potassium Chloride (Klor-Con M10) 40 meq STK-MED ONCE .ROUTE 08/04/17 17:49 08/04/17 17:50 DC 08/04/17 17:54 40 MEQ ED Course 1631: The patient was evaluated in room A09B. A complete history and physical exam was performed. 1838: I reevaluated the patient. Discussed results and discharge instructions: She verbalized understanding and agreement. The patient is ready for discharge. Medical Decision Triage Nursing notes reviewed. The patient is a 37 year old white female with a past medical history of diabetes, migraines, gastroparesis thyroid problems who presents to the ED with a cc of constant generalized achiness beginning 6 days ago. The patient's presentation and history were concerning for etiologies such as viral syndrome, otitis, pharyngitis, pneumonia, influenza, meningitis, urinary tract infection, sepsis, bacteremia, as well as others were entertained. Patient was seen and evaluated at the bedside. Patient stated that she wasn't having 6 days of URI-type symptoms and had some difficulty with tolerating by mouth. Patient denied any abdominal pain, or vomiting. Only mild nausea. On exam patient did sound congested. Posterior pharynx is clear without any exudate. Patient had no stridor. 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 Patient was able to extend and flex the neck without difficulty. No signs of meningismus. Patient did have blood work that was completed and was treated for her symptoms. Patient blood work fairly unremarkable. Patient did have mild hypokalemia. Patient given potassium and magnesium. On reexamination the patient stated that she didn't fill that improved. However, given the patient's fairly normal vital signs and fairly reassuring blood work I did patient that this may take some time this may be more viral illness that can last for little while and she'll need to continue supportive care at home. Hitchcock and flu were negative. Patient was given prescriptions as well as recommendations for at-home treatment. Patient was agreeable to plan of care. Patient was deemed suitable for outpatient follow- up and treatment. Patient should follow-up with PCP.Patient was given strict follow-up, discharge, and return precautions. All questions were answered. Patient was deemed suitable for outpatient follow-up at this time. Patient agreed with the plan of care and was safely discharged home. Medication Reconcilliation Current Medication List: was personally reviewed by me Blood Pressure Screening Patient's blood pressure: Elevated blood pressure Blood pressure disposition: Elevated BP felt to be situational Impression Primary Impression: Upper respiratory infection Additional Impressions: Sore throat Hypokalemia Scribe Attestation The scribe's documentation has been prepared under my direction and personally reviewed by me in its entirety. I confirm that the note above accurately reflects all work, treatment, procedures, and medical decision making performed by me. Departure Information Dispostion Home / Self-Care Prescriptions Benzocaine-Menthol (Mouth-Thro (CEPACOL SORE THROAT) 1 Antonia Antonia 1 ANTONIA PO TID for 7 Days, #21 ANTONIA Prov: Jeffery Gore M.D. 08/04/17 Prednisone (PREDNISONE) 50 Mg Tab 50 MG PO DAILY for 4 Days, #4 TAB Prov: Jeffery Gore M.D. 08/04/17 Referrals Melania Zhou D.O. (PCP) Patient Instructions My [facility], Sore Throat, Sore Throats Self Care Additional Instructions Please return to the emergency department if you have worsening or recurrent symptoms not amenable to at-home treatment. Please call for a follow-up appointment with her primary care physician. Please take your medications as prescribed. If you have other concerns and/or complaints please feel free to also call your primary care physician's office or return the ED for further evaluation, management, and treatment. You may take 600 mg Ibuprofen every 6 hours as needed for pain with food for no more than 2 consecutive days. You may take tylenol 1000 mg every 6 hours as needed for pain. You may take motrin and tylenol separately or at the same time. Also take the steroids preferably in the morning with food. You may also try saline nasal sprays. He may try a decongestant do not take more than 2 consecutive days as it can cause some worsening congestion. Also consider a humidifier and/or warm showers. Continue with adequate fluids and avoid things like tobacco, alcohol. Continue good oral hygiene. Take your medications as prescribed. You have been examined and treated today on an emergency basis only. This is not a substitute for, or an effort to provide, complete comprehensive medical care. It is impossible to recognize and treat all injuries or illnesses in a single emergency department visit. It is therefore important that you follow up closely with [facility], your PCP, and/or your specialist(s). Call as soon as possible for an appointment. Thank you for your time and consideration. I look forward to speaking with you again soon. Please don't hesitate to call us if you have any questions. Problem Qualifiers Primary Impression: Upper respiratory infection URI type: unspecified URI Qualified Codes: J06.9 - Acute upper respiratory infection, unspecified
[2017-08-04 17:16] LABS: BASO % 0.4 %; BASO ABS # 0.03 K/uL (0-0.2); COMPLETE YES; EOS % 1.9 %; IG% 0.7 %; LYMPH % 19.2 %; LYMPH ABS # 1.58 K/uL (1.2-3.4); MEAN CELL VOLUME 88.3 fL (80-100); MEAN CORPUSCULAR HEMOGLOBIN 29.6 pg (25-34); MEAN CORPUSCULAR HGB CONC 33.5 g/dl (32-36); MEAN PLATELET VOLUME 9.1 fL (7.4-10.4); MONO % 6.8 %; PLATELET COUNT 225 K/uL (130-400); RED BLOOD COUNT 3.85 M/uL (4.2-5.4); WHITE BLOOD COUNT 8.22 K/uL (4.8-10.8)
[2017-08-04 17:31] LABS: BUN/CREATININE RATIO 9.5 (10-20); CALCIUM 8.8 mg/dl (8.5-10.1); CREATININE 0.77 mg/dl (0.60-1.20); POTASSIUM 3.2 mmol/L (3.5-5.1)
[2017-08-04] MEDS ORDERED: POTASSIUM CHLORIDE 20 MEQ TABCR PO STA (17:43)
[2017-08-04] MEDS ORDERED: MAGNESIUM OXIDE 400 MG TAB PO STA (17:43)
[2017-08-04] MEDS ORDERED: POTASSIUM CHLORIDE 10 MEQ TABCR ONE (17:49)
[2017-08-04] MEDS ORDERED: PRED50TA PO (19:06)
[2017-08-04] MEDS ORDERED: BENZ10LO2 PO (19:06)
[2017-08-04 19:29] VITALS: BP 144/96; PULSE 78; O2SAT 95
== END 2017-08-04 19:29 | disposition home or self-care (01) ==
LOC: C.EDB 15:09 → C.EDA 19:29
DX: J02.9 Acute pharyngitis, unspecified (principal); E87.6 Hypokalemia; E11.9 Type 2 diabetes mellitus without complications; G43.909 Migraine, unspecified, not intractable, without status migrainosus; K31.84 Gastroparesis; F32.9 Major depressive disorder, single episode, unspecified; K21.9 Gastro-esophageal reflux disease without esophagitis; E03.9 Hypothyroidism, unspecified; E28.2 Polycystic ovarian syndrome; Z80.9 Family history of malignant neoplasm, unspecified; Z83.3 Family history of diabetes mellitus; Z82.49 Family history of ischemic heart disease and other diseases of the circulatory system; Z79.899 Other long term (current) drug therapy

== ENCOUNTER 2017-09-08 16:54 | Emergency (ER) | payer OTHER ==
[~2017-09-08] VITALS: Ht 167.6 cm; Wt 98.3 kg
[~2017-09-08 16:54] MED LIST changes: +BENZ10LO2 PO; +MAGN250T11 PO; -MGNG500 PO
[2017-09-08 17:02] VITALS: TEMP 36.9; Ht 167.6 cm; Wt 98.3 kg
--- NOTE | 2017-09-08 17:35 | EMERGENCY ROOM VISIT NOTE ---
History Report prepared by Dion: Cole Thornton Under the Supervision of: Dr. Edmundo Damon M.D. 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 She notes that she recently had Botox treatment in her pyloric valve for gastroparesis in June 2017 at [facility]. She was seen in the ED in June 2017 for similar symptoms , though she notes her abdominal pain was lower and this time the pain is more epigastric in nature. She notes that she has been having abdominal pain since the Botox treatment and reports that her doctor believes she was having an adverse reaction to the Botox. However, the abdominal pain has worsened over the last three days and worsens when she eats. She notes nausea and loss of appetite. She has a history of cholecystectomy. She notes the pain is worse than her gall bladder pain. She currently rates her pain an 8/10 in severity. She denies any vomiting, fevers, or urinary symptoms. 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 Review of Systems See HPI for pertinent positives & negatives. A total of 10 systems reviewed and were otherwise negative. Past Medical & Surgical Medical Problems: (1) Chronic chest pain (2) Chronic neck pain (3) Depression (4) Gastroesophageal reflux disease (5) Hypothyroidism (6) Migraine (7) Migraine without aura (8) Partial small bowel obstruction (9) Polycystic ovaries (10) Right ovarian cyst Surgical Problems: (1) H/O sinus surgery (2) S/P cholecystectomy Old medical records were reviewed. Nurse's notes were reviewed and I agree with. Family History Cancer Diabetes mellitus FHx: alcoholism Heart disease Hypertension Social History Smoking Status: Never Smoker Alcohol Use: none Drug Use: none Marital Status: single, in relationship Housing Status: lives with family Occupation Status: unemployed Current/Historical Medications Scheduled Amlodipine (Norvasc), 5 MG PO DAILY Atenolol (Tenormin), 25 MG PO QPM Benzocaine-Menthol (Mouth-Thro (Cepacol Sore Throat), 1 GLORIA PO TID Duloxetine HCl (Duloxetine HCl), 90 MG PO HS Ergocalciferol (Vitamin D [address]406 Unit), 1 TAB PO WK Fish Oil ([place]-3), 1 CAP PO DAILY Folic Acid (Folvite), 400 MCG PO DAILY Levothyroxine Sodium (Levothyroxine Sodium), 50 MCG PO DAILY Magnesium Gluconate (Magnesium Gluconate), 125 MG PO DAILY Memantine (Namenda), 10 MG PO BID Metformin HCl (Metformin HCl), 500 MG PO BIDM Multivitamins/Minerals (Mvi With Minerals), 1 TAB PO DAILY Pantoprazole (Protonix), 40 MG PO BID Potassium Chloride Microencaps (Potassium Chloride Er), 20 MEQ PO HS Tizanidine (Tizanidine HCl), 4-8 MG PO HS Trazodone Hcl (Trazodone), 50 MG PO HS Scheduled PRN Baclofen (Baclofen), 20 MG PO TID PRN for Muscle Spasms Beclomethasone Dip (Qvar), 2 PUFFS INH BID PRN for SOB/Wheezing Buspirone HCl (Buspirone HCl), 5-10 MG PO TID PRN for Anxiety Fluticasone Propionate (Nasal) (Flonase Allergy Relief), 2 SPRAY YARELY BID PRN for Hydroxyzine HCl (Hydroxyzine HCl), 25 MG PO TID PRN for with baclofen Promethazine (Phenergan Suppository), 25 MG OH Q6H PRN for Nausea Promethazine HCl (Promethazine HCl), 25 MG PO HS PRN for Nausea or Migraine Zolmitriptan (Zolmitriptan), 2.5-5 MG PO UD PRN for Migraine Allergies Coded Allergies: Cephalexin (Verified Allergy, Mild, rash, 09/08/17) Morphine (Verified Allergy, Unknown, HIVES/ITCHING, N&V, 09/08/17) Topiramate (Verified Allergy, Unknown, neurological symptoms, 09/08/17) Physical Exam Vital Signs Date Time Temp Pulse Resp B/P (MAP) Pulse Ox O2 Delivery O2 Flow Rate FiO2 09/08/17 20:01 79 18 123/77 100 Room Air 09/08/17 18:35 86 18 125/83 97 Room Air 09/08/17 17:02 36.9 100 20 137/105 100 Room Air Physical Exam General: Mildly uncomfortable-appearing middle-aged female in no acute distress. Complaining of epigastric pain. HEENT: Normal cephalic atraumatic. Pupils are equal round and reactive to light. Extraocular movements are intact. Oropharynx is pink with moist mucous membranes. No swelling of the mouth lips or tongue. Neck: Supple with a midline trachea. No meningeal signs or stiffness, no JVD or bruits. No Stridor. Chest: Clear to auscultation bilaterally. No wheezes or rhonchi. No increased work of breathing. Heart: regular rate and rhythm. Abdomen: Soft and mildly tender in epigastric area, nondistended without rebound guarding or rigidity. Extremities: No cyanosis clubbing or edema. No calf tenderness or assymetry Spine/Back. Non tender to palpation. No CVA tenderness Skin: Good turgor without rashes. Neurologic exam: Cranial nerves two through 12 are intact. Motor and sensation are intact and symmetrical throughout. Medical Decision & Procedures ER Provider Diagnostic Interpretation: Radiology results as stated below per my review and radiologist interpretation: CHEST ONE VIEW PORTABLE CLINICAL HISTORY: CHEST PAIN COMPARISON STUDY: Chest radiograph June 28, 2017. FINDINGS: Lung volumes are normal. Lungs are clear. No pneumothorax or pleural effusion is noted. Pulmonary vascularity is normal. Cardiomediastinal silhouette is normal. There are cholecystectomy clips. Appearance of the chest is unchanged. IMPRESSION: No acute cardiopulmonary findings. Electronically signed by: Kush White M.D. 09/08/2017 7:04 PM Dictated Date/Time: 09/08/2017 7:04 PM Laboratory Results 09/08/17 18:29 Red Blood Count 4.33, Mean Corpuscular Volume 87.5, Mean Corpuscular Hemoglobin 29.8, Mean Corpuscular Hemoglobin Concent 34.0, Mean Platelet Volume 9.5, Neutrophils (%) (Auto) 73.3, Lymphocytes (%) (Auto) 19.1, Monocytes (%) (Auto) 6.4, Eosinophils (%) (Auto) 0.6, Basophils (%) (Auto) 0.2, Neutrophils # (Auto) 6.14, Lymphocytes # (Auto) 1.60, Monocytes # (Auto) 0.54, Eosinophils # (Auto) 0.05, Basophils # (Auto) 0.02 09/08/17 18:29 Test 09/08/17 18:29 White Blood Count 8.38 K/uL (4.8-10.8) Red Blood Count 4.33 M/uL (4.2-5.4) Hemoglobin 12.9 g/dL (12.0-16.0) Hematocrit 37.9 % (37-47) Mean Corpuscular Volume 87.5 fL (80-100) Mean Corpuscular Hemoglobin 29.8 pg (25-34) Mean Corpuscular Hemoglobin Concent 34.0 g/dl (32-36) Platelet Count 230 K/uL (130-400) Mean Platelet Volume 9.5 fL (7.4-10.4) Neutrophils (%) (Auto) 73.3 % Lymphocytes (%) (Auto) 19.1 % Monocytes (%) (Auto) 6.4 % Eosinophils (%) (Auto) 0.6 % Basophils (%) (Auto) 0.2 % Neutrophils # (Auto) 6.14 K/uL (1.4-6.5) Lymphocytes # (Auto) 1.60 K/uL (1.2-3.4) Monocytes # (Auto) 0.54 K/uL (0.11-0.59) Eosinophils # (Auto) 0.05 K/uL (0-0.5) Basophils # (Auto) 0.02 K/uL (0-0.2) RDW Standard Deviation 43.8 fL (36.4-46.3) RDW Coefficient of Variation 13.7 % (11.5-14.5) Immature Granulocyte % (Auto) 0.4 % Immature Granulocyte # (Auto) 0.03 K/uL (0.00-0.02) Anion Gap 7.0 mmol/L (3-11) Est Creatinine Clear Calc Drug Dose 92.0 ml/min Estimated GFR () 84.4 Estimated GFR (Non- 72.8 BUN/Creatinine Ratio 8.7 (10-20) Calcium Level 8.9 mg/dl (8.5-10.1) Total Bilirubin 0.5 mg/dl (0.2-1) Direct Bilirubin 0.1 mg/dl (0-0.2) Aspartate Amino Transf (AST/SGOT) 14 U/L (15-37) Alanine Aminotransferase (ALT/SGPT) 25 U/L (12-78) Alkaline Phosphatase 91 U/L (45-117) Troponin I < 0.015 ng/ml (0-0.045) Total Protein 7.8 gm/dl (6.4-8.2) Albumin 4.0 gm/dl (3.4-5.0) Lipase 84 U/L (73-393) Human Chorionic Gonadotropin, Qual NEG (NEG) Laboratory studies as stated above per my review. Medications Administered Medications (Trade) Dose Ordered Sig/Jean Claude Route Start Time Stop Time Status Last Admin Dose Admin Sodium Chloride 1,000 ml @ 999 mls/hr Q1H1M STAT IV 09/08/17 18:11 09/08/17 19:11 DC 09/08/17 18:34 999 MLS/HR Ketorolac Tromethamine (Toradol Inj) 30 mg NOW STAT IV 09/08/17 18:11 09/08/17 18:13 DC 09/08/17 18:32 30 MG Al Hydroxide/Mg Hydroxide (Maalox Susp) 30 ml NOW STAT PO 09/08/17 18:11 09/08/17 18:13 DC 09/08/17 18:32 30 ML Lidocaine HCl (Viscous Lidocaine 2% Soln) 10 ml NOW STAT MT 09/08/17 18:11 09/08/17 18:13 DC 09/08/17 18:32 10 ML Hydromorphone HCl (Dilaudid Inj) 1 mg NOW STAT IV 09/08/17 18:50 09/08/17 18:51 DC 09/08/17 18:58 1 MG ECG Indication: abdominal pain Rate (beats per minute): 78 Rhythm: normal sinus Findings: no acute ischemic change, no ectopy Change: no significant change (when compared to 02/16/2014) ED Course 1707: Past medical records reviewed. The patient was evaluated in room C2B, and a complete history and physical examination were performed. 1810: Ordered Lidocaine HCl 10 mg MT, Maalox 30 ml PO, Toradol 30 mg IV, and Sodium Chloride 1,000 ml @ 999 mls/hr IV 1847: I reassessed the patient at this time. She is still having pain. 0: Ordered Dilaudid 1 mg IV 1940: I reassessed the patient at this time. She is feeling better and resting comfortably. I discussed the results and treatment plan with the patient. I answered all pertaining questions that she had. She expressed understanding and verbalized agreement. The patient will be discharged home. Medical Decision Differentials include, but are not limited to; GERD, gastritis, pancreatitis, infection, medication side effects, and electrolyte or metabolic abnormalities. This patient comes in as described above she's had epigastric abdominal pain. She has a history gastroparesis. She has tried Botox injections this past June. On exam, she is mildly tender epigastric area. Her gallbladder has been previously removed. She's had no peritonitis. She's no fever. She's had no trauma. Blood work was obtained and she's had nothing to suggest infection or sepsis or pancreatitis or liver disease. She did receive a GI cocktail and Toradol 30 mg IV with not much relief . she was given Dilaudid 1 mg IV and felt significantly better and wants to go home her significant other is at the bedside and driving. She will be discharged home. She'll return if: increasing pain, worsening of symptoms, fever or chills, any new problems concerns. She was happy with the plan and discharged to home. Medication Reconcilliation Current Medication List: was personally reviewed by me Blood Pressure Screening Patient's blood pressure: Elevated blood pressure Blood pressure disposition: Elevated BP felt to be situational Impression Primary Impression: Epigastric abdominal pain Additional Impression: Gastroparesis Scribe Attestation The scribe's documentation has been prepared under my direction and personally reviewed by me in its entirety. I confirm that the note above accurately reflects all work, treatment, procedures, and medical decision making performed by me. Departure Information Dispostion Home / Self-Care Referrals No Doctor, Assigned (PCP) Forms Call Back Authorization, HOME CARE DOCUMENTATION FORM, IMPORTANT VISIT INFORMATION Patient Instructions My [facility] Additional Instructions Rest. Drink plenty of fluids. Mild diet. Return if: Increasing pain, worsening of symptoms, fever or chills, any new problems or concerns Follow-up the your doctor this week for recheck Problem Qualifiers
[2017-09-08] MEDS ORDERED: LIDOCAINE HCL 2% VISC SOLN 20 ML UDC MT STA (18:11)
[2017-09-08] MEDS ORDERED: SODIUM CHLORIDE 0.9% 1000ML 1,000 ML IV STA (18:11)
[2017-09-08] MEDS ORDERED: KETOROLAC TROMETHAMINE 30 MG/ML VIAL IV STA (18:11)
[2017-09-08] MEDS ORDERED: ALUMINUM/MAGNESIUM SUSP 30 ML UDC PO STA (18:11)
[2017-09-08 18:38] LABS: BASO % 0.2 %; BASO ABS # 0.02 K/uL (0-0.2); EOS % 0.6 %; EOS ABS # 0.05 K/uL (0-0.5); HEMATOCRIT 37.9 % (37-47); HEMOGLOBIN 12.9 g/dL (12.0-16.0); IG# 0.03 K/uL (0.00-0.02); LYMPH % 19.1 %; MEAN CELL VOLUME 87.5 fL (80-100); MEAN CORPUSCULAR HEMOGLOBIN 29.8 pg (25-34); MEAN PLATELET VOLUME 9.5 fL (7.4-10.4); MONO % 6.4 %; MONO ABS # 0.54 K/uL (0.11-0.59); NEUT % 73.3 %; NEUT ABS # 6.14 K/uL (1.4-6.5); PLATELET COUNT 230 K/uL (130-400); RED CELL DISTRIBUTION WIDTH CV 13.7 % (11.5-14.5); RED CELL DISTRIBUTION WIDTH SD 43.8 fL (36.4-46.3); WHITE BLOOD COUNT 8.38 K/uL (4.8-10.8)
[2017-09-08] MEDS ORDERED: HYDROmorphone INJ 1 MG/ML SYR IV STA (18:50)
--- NOTE | 2017-09-08 19:05 | DIAGNOSTIC IMAGING REPORT ---
CHEST ONE VIEW PORTABLE CLINICAL HISTORY: CHEST PAIN COMPARISON STUDY: Chest radiograph June 28, 2017. FINDINGS: Lung volumes are normal. Lungs are clear. No pneumothorax or pleural effusion is noted. Pulmonary vascularity is normal. Cardiomediastinal silhouette is normal. There are cholecystectomy clips. Appearance of the chest is unchanged. IMPRESSION: No acute cardiopulmonary findings. Electronically signed by: Kush White M.D. 09/08/2017 7:04 PM Dictated Date/Time: 09/08/2017 7:04 PM
[2017-09-08 19:09] LABS: ALT/SGPT 25 U/L (12-78); AST/SGOT 14 U/L (15-37); BLOOD UREA NITROGEN 9 mg/dl (7-18); CALCIUM 8.9 mg/dl (8.5-10.1); CARBON DIOXIDE 25 mmol/L (21-32); CREATININE 0.99 mg/dl (0.60-1.20); GLUCOSE 100 mg/dl (70-99); LIPASE 84 U/L (73-393); POTASSIUM 3.7 mmol/L (3.5-5.1); SODIUM 137 mmol/L (136-145)
[2017-09-08 19:14] LABS: ALKALINE PHOSPHATASE 91 U/L (45-117); TOTAL PROTEIN 7.8 gm/dl (6.4-8.2)
[2017-09-08 20:01] VITALS: BP 123/77; PULSE 79; O2SAT 100
== END 2017-09-08 20:02 | disposition home or self-care (01) ==
LOC: C.EDB 16:55 → C.EDC 20:02
DX: R10.13 Epigastric pain (principal); K31.84 Gastroparesis; R07.9 Chest pain, unspecified; M54.2 Cervicalgia; F32.9 Major depressive disorder, single episode, unspecified; J21.9 Acute bronchiolitis, unspecified; E03.9 Hypothyroidism, unspecified; G43.909 Migraine, unspecified, not intractable, without status migrainosus; E28.2 Polycystic ovarian syndrome; Z79.84 Long term (current) use of oral hypoglycemic drugs; Z83.3 Family history of diabetes mellitus; Z82.49 Family history of ischemic heart disease and other diseases of the circulatory system; Z81.1 Family history of alcohol abuse and dependence

== ENCOUNTER 2017-10-18 13:44 | Emergency (ER) | payer OTHER ==
[~2017-10-18] VITALS: Ht 167.6 cm; Wt 98.0 kg
[2017-10-18 13:59] VITALS: TEMP 36.6; O2SAT 96; Ht 167.6 cm; Wt 98.0 kg
[2017-10-18] MEDS ORDERED: ACETAMINOPHEN IV 100 ML IV STA (16:07)
[2017-10-18] MEDS ORDERED: ONDANSETRON INJ 2 MG/ML 2 ML VIAL IV STA (16:07)
[2017-10-18] MEDS ORDERED: SODIUM CHLORIDE 0.9% 1000ML 1,000 ML IV STA (16:07)
--- NOTE | 2017-10-18 16:18 | EMERGENCY ROOM VISIT NOTE ---
ED Visit Note First contact with patient: 15:54 CHIEF COMPLAINT: Abdominal pain with nausea, vomiting, and diarrhea, concern for dehydration. HISTORY OF PRESENTING ILLNESS: This is a 37-year-old female with past medical history significant for gastroparesis, who presents to the emergency department with complaint of diffuse abdominal pain and concern for dehydration. She states the pain is constant, diffusely throughout her entire abdomen, 7/10. She has taken Aleve with minimal improvement in her pain. Patient states that her abdominal pain has been severe for the past 2-3 days, but reports she has been having significant issues with nausea/vomiting and diarrhea for the past week or more. She states that she gets flares of her gastroparesis and this feels similar, although it feels more severe than usual. She states that last night she was moving her bowels and she had a bowel movement with bright red blood in it. She does report a history of hemorrhoids. She has not had any further blood in her stool since last night. She reports some low-grade fevers of 99-100 with chills, persistent nausea and poor appetite. She denies any headaches, vision changes, neck pain or stiffness, chest pain, shortness of breath, back pain, urinary symptoms, abnormal vaginal bleeding or discharge, or rash. REVIEW OF SYSTEMS: A complete 10 point review of systems was reviewed with the patient with pertinent positives and negatives as per history of present illness. All else were negative. PAST MEDICAL HISTORY: Reviewed in chart. SOCIAL HISTORY: Lives at home with family. Denies tobacco, alcohol, recreational drug use. ALLERGIES: Reviewed in chart. PHYSICAL EXAM: CONSTITUTIONAL: Pleasant and cooperative. No acute distress, but appears uncomfortable throughout exam. Moderately dehydrated.. HEENT: Normocephalic, atraumatic. Pupils equal, round and reactive to light, EOMI. TMs normal. Pharynx normal. Dry mucous membranes. NECK: Supple, full active range of motion without discomfort. No cervical adenopathy. RESPIRATORY: Clear to auscultation bilaterally with no wheezing, crackles, rhonchi or stridor. Equal expansion bilaterally. CARDIOVASCULAR: Regular rate and rhythm with no murmurs, rubs or gallops. Normal peripheral perfusion. No edema. GASTROINTESTINAL: Soft, diffusely tender throughout, nondistended. No rebound tenderness or guarding. No CVA tenderness. No palpable masses or HSM. Bowel sounds present in all quadrants. MUSCULOSKELETAL: Full range of motion of all joints without discomfort. INTEGUMENTARY: No rash or other significant dermatologic conditions noted. NEUROLOGIC: Alert and oriented X 4 with normal affect. Normal strength and sensation all 4 extremities. No focal neurologic deficits noted. Normal speech. Normal gait observed ED COURSE AND MEDICAL DECISION MAKING: CC: Patient presenting with complaint of abdominal pain, vomiting and diarrhea DIFFERENTIAL DIAGNOSIS: Includes, but not limited to gastroenteritis, gastritis , gastroparesis, reflux, peptic ulcer disease, small bowel obstruction, diverticulitis, appendicitis, pancreatitis, dehydration, chronic pain, drug- seeking behavior, among others. INTERPRETATION OF LABS: No leukocytosis, no anemia, no significant electrolyte abnormalities, normal renal function, normal liver enzymes and lipase. UA negative for infection. Urine negative. IMAGING: ABDOMEN AND PELVIS CT WITH IV CONTRAST CT DOSE: 709.90 mGy.cm HISTORY: diffuse abdominal pain, eval appe, diverticulitis, SBO TECHNIQUE: Multiaxial CT images of the abdomen and pelvis were performed following the use of intravenous contrast. A dose lowering technique was utilized adhering to the principles of ALARA. COMPARISON STUDY: Abdomen and pelvis CT 03/22/2017. FINDINGS: The lung bases are clear. No fractures within the visualized osseous structures. Tiny fat-containing umbilical hernia. Cholecystectomy. No hepatic or splenic masses. The adrenal glands, pancreas, and kidneys are unremarkable. No retroperitoneal lymphadenopathy. The bladder, uterus, and bilateral ovaries are unremarkable. No bowel wall thickening or obstruction. Normal appendix. IMPRESSION: 1. No bowel wall thickening or obstruction. 2. Normal appendix. 3. Cholecystectomy. MEDICATION RECONCILIATION: I attest that I have personally reviewed the patient 's current medication list. INITIAL VITAL SIGNS REVIEW: I reviewed the patient's initial vital signs and interpret them as follows: T: Afebrile; BP: Hypertensive; HR: Within normal limit; RR: Within normal limits; Pulse Ox: Within normal limits on room air. Blood pressure screening: The patient was found to have an elevated blood pressure, which was felt to be situational. SUMMARY: Patient was evaluated at bedside, history and physical exam performed. Patient is alert and oriented, no acute distress, but does appear uncomfortable throughout exam, resting in the stretcher. Patient has generalized abdominal pain throughout, no focal point of tenderness , no rebound tenderness or guarding. Patient complains of severe nausea but is not vomiting. She appears moderately dehydrated on exam. Orders were placed at bedside for labs, UA and urine , IV fluids for hydration, IV Tylenol for pain, CT abdomen/pelvis to evaluate for abdominal pain. Patient discussed with Dr. Wilder, who agrees with my assessment and plan. Labs and imaging reviewed as above, unremarkable with no acute abnormalities to explain patient's symptoms. Patient requesting something more for pain. I did discuss with her that I did not feel narcotics were an appropriate management for her pain. We discussed the use of Bentyl given her history of gastroparesis, she agreed to try this. She was also given patricia lory for PO trial. Patient reassessed multiple times throughout ED stay, she reports she is much improved after IV fluids and no longer feels dehydrated. Her pain is improving. She is tolerating oral fluids without difficulty. Patient was updated on all results and plan for discharge, she was encouraged to follow-up with her PCP as well as her GI provider for ongoing management. Patient was also given strict return precautions should her symptoms worsen, she verbalized understanding. Patient was discharged home in stable condition and ambulatory. Problem List Medical Problems: (1) Chronic chest pain Status: Resolved (2) Chronic neck pain Status: Chronic (3) Depression Status: Chronic (4) Gastroesophageal reflux disease Status: Chronic (5) Hypothyroidism Status: Chronic (6) Migraine Status: Chronic (7) Migraine without aura Status: Resolved (8) Partial small bowel obstruction Status: Resolved (9) Polycystic ovaries Status: Chronic (10) Right ovarian cyst Status: Chronic Surgical Problems: (1) H/O sinus surgery Status: Chronic (2) S/P cholecystectomy Status: Chronic Current/Historical Medications Scheduled Acyclovir (Acyclovir), 5 ML TD [id number] Amlodipine (Norvasc), 5 MG PO DAILY Atenolol (Tenormin), 25 MG PO QPM Duloxetine HCl (Duloxetine HCl), 90 MG PO HS Ergocalciferol (Vitamin D 89845 Unit), 1 TAB PO WK Fish Oil ([place]-3), 1 CAP PO DAILY Folic Acid (Folvite), 400 MCG PO DAILY Levothyroxine Sodium (Levothyroxine Sodium), 50 MCG PO DAILY Lidocaine (Lidocaine), 1 PATCH TD Q12 Magnesium Gluconate (Magnesium Gluconate), 125 MG PO BID Memantine (Namenda), 10 MG PO BID Metformin HCl (Metformin HCl), 500 MG PO BIDM Multivitamins/Minerals (Mvi With Minerals), 1 TAB PO DAILY Pantoprazole (Protonix), 40 MG PO BID Potassium Chloride Microencaps (Potassium Chloride Er), 20 MEQ PO HS Tizanidine (Tizanidine HCl), 4-8 MG PO HS Trazodone Hcl (Trazodone), 50 MG PO HS Scheduled PRN Baclofen (Baclofen), 20 MG PO TID PRN for Muscle Spasms Beclomethasone Dip (Qvar), 2 PUFFS INH BID PRN for SOB/Wheezing Benzocaine-Menthol (Mouth-Thro (Cepacol Sore Throat), 1 GLORIA PO TID PRN for SORE THROAT Buspirone HCl (Buspirone HCl), 5-10 MG PO TID PRN for Anxiety Fluticasone Propionate (Nasal) (Flonase Allergy Relief), 2 SPRAY YARELY BID PRN for Hydroxyzine HCl (Hydroxyzine HCl), 25 MG PO TID PRN for with baclofen Promethazine (Phenergan Suppository), 25 MG DE Q6H PRN for Nausea Promethazine HCl (Promethazine HCl), 25 MG PO HS PRN for Nausea or Migraine Zolmitriptan (Zolmitriptan), 2.5-5 MG PO UD PRN for Migraine Allergies Coded Allergies: Cephalexin (Verified Allergy, Mild, rash, 10/18/17) Morphine (Verified Allergy, Unknown, HIVES/ITCHING, N&V, 10/18/17) Topiramate (Verified Allergy, Unknown, neurological symptoms, 10/18/17) Vital Signs Date Time Temp Pulse Resp B/P (MAP) Pulse Ox O2 Delivery O2 Flow Rate FiO2 10/18/17 19:11 75 20 116/76 Room Air 10/18/17 18:06 74 20 116/67 Room Air 10/18/17 16:57 71 10/18/17 16:27 76 20 129/83 Room Air 10/18/17 13:59 36.6 89 18 131/91 96 Room Air Laboratory Results 10/18/17 16:25 Red Blood Count 4.29, Mean Corpuscular Volume 87.9, Mean Corpuscular Hemoglobin 30.3, Mean Corpuscular Hemoglobin Concent 34.5, Mean Platelet Volume 9.4, Neutrophils (%) (Auto) 72.3, Lymphocytes (%) (Auto) 21.0, Monocytes (%) (Auto) 5.2, Eosinophils (%) (Auto) 1.1, Basophils (%) (Auto) 0.2, Neutrophils # (Auto) 5.79, Lymphocytes # (Auto) 1.69, Monocytes # (Auto) 0.42, Eosinophils # (Auto) 0.09, Basophils # (Auto) 0.02 10/18/17 16:25 Test 10/18/17 16:25 White Blood Count 8.03 K/uL (4.8-10.8) Red Blood Count 4.29 M/uL (4.2-5.4) Hemoglobin 13.0 g/dL (12.0-16.0) Hematocrit 37.7 % (37-47) Mean Corpuscular Volume 87.9 fL (80-100) Mean Corpuscular Hemoglobin 30.3 pg (25-34) Mean Corpuscular Hemoglobin Concent 34.5 g/dl (32-36) Platelet Count 269 K/uL (130-400) Mean Platelet Volume 9.4 fL (7.4-10.4) Neutrophils (%) (Auto) 72.3 % Lymphocytes (%) (Auto) 21.0 % Monocytes (%) (Auto) 5.2 % Eosinophils (%) (Auto) 1.1 % Basophils (%) (Auto) 0.2 % Neutrophils # (Auto) 5.79 K/uL (1.4-6.5) Lymphocytes # (Auto) 1.69 K/uL (1.2-3.4) Monocytes # (Auto) 0.42 K/uL (0.11-0.59) Eosinophils # (Auto) 0.09 K/uL (0-0.5) Basophils # (Auto) 0.02 K/uL (0-0.2) RDW Standard Deviation 44.6 fL (36.4-46.3) RDW Coefficient of Variation 13.9 % (11.5-14.5) Immature Granulocyte % (Auto) 0.2 % Immature Granulocyte # (Auto) 0.02 K/uL (0.00-0.02) Urine Color YELLOW Urine Appearance CLOUDY (CLEAR) Urine pH 8.0 (4.5-7.5) Urine Specific [place] 1.012 (1.000-1.030) Urine Protein NEG (NEG) Urine Glucose (UA) NEG (NEG) Urine Ketones NEG (NEG) Urine Occult Blood NEG (NEG) Urine Nitrite NEG (NEG) Urine Bilirubin NEG (NEG) Urine Urobilinogen NEG (NEG) Urine Leukocyte Esterase NEG (NEG) Urine WBC (Auto) 1-5 /hpf (0-5) Urine RBC (Auto) 0-4 /hpf (0-4) Urine Hyaline Casts (Auto) 1-5 /lpf (0-5) Urine Epithelial Cells (Auto) >30 /lpf (0-5) Urine Bacteria (Auto) NEG (NEG) Urine Yeast (Auto) (NONE PRSENT) Urine Test NEG (NEG) Anion Gap 7.0 mmol/L (3-11) Est Creatinine Clear Calc Drug Dose 90.0 ml/min Estimated GFR () 82.4 Estimated GFR (Non- 71.1 BUN/Creatinine Ratio 10.4 (10-20) Calcium Level 9.1 mg/dl (8.5-10.1) Total Bilirubin 0.4 mg/dl (0.2-1) Direct Bilirubin 0.1 mg/dl (0-0.2) Aspartate Amino Transf (AST/SGOT) 15 U/L (15-37) Alanine Aminotransferase (ALT/SGPT) 26 U/L (12-78) Alkaline Phosphatase 84 U/L (45-117) Total Protein 8.0 gm/dl (6.4-8.2) Albumin 4.0 gm/dl (3.4-5.0) Lipase 92 U/L (73-393) Medications Administered Medications (Trade) Dose Ordered Sig/Jean Claude Route Start Time Stop Time Status Last Admin Dose Admin Sodium Chloride 1,000 ml @ 999 mls/hr Q1H1M STAT IV 10/18/17 16:07 10/18/17 17:07 DC 10/18/17 16:28 999 MLS/HR Ondansetron HCl (Zofran Inj) 4 mg NOW STAT IV 10/18/17 16:07 10/18/17 16:11 DC 10/18/17 16:32 4 MG Acetaminophen 100 ml @ 400 mls/hr NOW STAT IV 10/18/17 16:07 10/18/17 16:21 DC 10/18/17 16:32 400 MLS/HR Dicyclomine HCl (Bentyl Inj) 20 mg NOW ONCE IM 10/18/17 18:30 10/18/17 18:31 DC 10/18/17 18:22 20 MG Departure Information Impression Primary Impression: GENERALIZED ABDOMINAL PAIN Additional Impression: Vomiting and diarrhea Dispostion Home / Self-Care Condition GOOD Referrals No Doctor, Assigned (PCP) Patient Instructions ED Diet Vomiting Diarrhea, ED Gastroenteritis Viral, My [facility] Additional Instructions You have been treated in the Emergency Department for your abdominal pain, vomiting and diarrhea. Laboratory results and imaging studies have ruled out any emergent causes for your symptoms n which would warrant admission or surgery. Continue to take your own antinausea medication as prescribed for nausea or vomiting. For pain control, you can use the following [id number] medicines (if >12 yo): - Regular strength (325mg/tab) Tylenol (acetaminophen) 2 tabs every 4-6 hours as needed. Do not exceed 10 tablets in a 24 hour period. Avoid taking more than 3000 mg of Tylenol per day. This includes any other sources of acetaminophen you may take on a regular basis. - Regular strength (200 mg/tab) Advil (ibuprofen) 3 tabs every 6-8 hours as needed. Do not exceed a dose of 2400 mg per day. Stick with a bland diet until your symptoms are improving. Drink plenty of fluids to stay well hydrated. Please follow-up with your primary care provider in the next few days for reevaluation. You should also follow-up with her interpreter for the deaf. Call for an appointment. Return to the emergency department if your symptoms persist or worsen despite treatment plan outlined above or if the following symptoms occur: Severe worsening pain, increased fevers or chills, worsening nausea/vomiting, vomiting up blood, blood in your stool or urine, severe dizziness or passing out, or any other concerns. Work Instructions Return To Work: 2 days Problem Qualifiers
[2017-10-18] MEDS ORDERED: BENZ1LOZ24 PO (16:25)
[2017-10-18] MEDS ORDERED: LIDO1PAD2 TD (16:25)
[2017-10-18] MEDS ORDERED: [UNRECOGNIZED DRUG - CODE] TD (16:25)
[2017-10-18 16:48] LABS: BASO % 0.2 %; BASO ABS # 0.02 K/uL (0-0.2); EOS % 1.1 %; EOS ABS # 0.09 K/uL (0-0.5); HEMATOCRIT 37.7 % (37-47); IG# 0.02 K/uL (0.00-0.02); LYMPH ABS # 1.69 K/uL (1.2-3.4); MEAN CELL VOLUME 87.9 fL (80-100); MEAN CORPUSCULAR HEMOGLOBIN 30.3 pg (25-34); MEAN CORPUSCULAR HGB CONC 34.5 g/dl (32-36); MEAN PLATELET VOLUME 9.4 fL (7.4-10.4); MONO % 5.2 %; MONO ABS # 0.42 K/uL (0.11-0.59); NEUT % 72.3 %; NEUT ABS # 5.79 K/uL (1.4-6.5); PLATELET COUNT 269 K/uL (130-400); RED CELL DISTRIBUTION WIDTH CV 13.9 % (11.5-14.5); RED CELL DISTRIBUTION WIDTH SD 44.6 fL (36.4-46.3); WHITE BLOOD COUNT 8.03 K/uL (4.8-10.8)
[2017-10-18 17:07] LABS: CALCIUM 9.1 mg/dl (8.5-10.1); CREATININE 1.01 mg/dl (0.60-1.20)
[2017-10-18] MEDS ORDERED: OPTIRAY 320 IV PRN (17:45)
--- NOTE | 2017-10-18 18:02 | DIAGNOSTIC IMAGING REPORT ---
ABDOMEN AND PELVIS CT WITH IV CONTRAST CT DOSE: 709.90 mGy.cm HISTORY: diffuse abdominal pain, eval appe, diverticulitis, SBO TECHNIQUE: Multiaxial CT images of the abdomen and pelvis were performed following the use of intravenous contrast. A dose lowering technique was utilized adhering to the principles of ALARA. COMPARISON STUDY: Abdomen and pelvis CT 03/22/2017. FINDINGS: The lung bases are clear. No fractures within the visualized osseous structures. Tiny fat-containing umbilical hernia. Cholecystectomy. No hepatic or splenic masses. The adrenal glands, pancreas, and kidneys are unremarkable. No retroperitoneal lymphadenopathy. The bladder, uterus, and bilateral ovaries are unremarkable. No bowel wall thickening or obstruction. Normal appendix. IMPRESSION: 1. No bowel wall thickening or obstruction. 2. Normal appendix. 3. Cholecystectomy. Electronically signed by: Rick Brown M.D. 10/18/2017 6:01 PM Dictated Date/Time: 10/18/2017 5:53 PM
[2017-10-18] MEDS ORDERED: HYDROmorphone INJ 0.5 MG/0.5 ML SYR IV STA (18:10)
[2017-10-18] MEDS ORDERED: DICYCLOMINE HCL 10 MG/ML 2 ML AMP IM ONE (18:30)
[2017-10-18 19:11] VITALS: BP 116/76; PULSE 75
== END 2017-10-18 19:14 | disposition home or self-care (01) ==
LOC: C.EDB 13:46 → C.EDA 19:14
DX: R10.84 Generalized abdominal pain (principal); R11.2 Nausea with vomiting, unspecified; R19.7 Diarrhea, unspecified; K31.84 Gastroparesis; F32.9 Major depressive disorder, single episode, unspecified; E03.9 Hypothyroidism, unspecified; E28.2 Polycystic ovarian syndrome; K21.9 Gastro-esophageal reflux disease without esophagitis; Z79.84 Long term (current) use of oral hypoglycemic drugs; Z88.1 Allergy status to other antibiotic agents; Z88.6 Allergy status to analgesic agent; Z88.8 Allergy status to other drugs, medicaments and biological substances

== ENCOUNTER 2017-11-23 18:57 | Emergency (ER) | payer OTHER ==
[~2017-11-23] VITALS: Ht 167.6 cm; Wt 99.6 kg
[~2017-11-23 18:57] MED LIST changes: -BENZ10LO2 PO; +BENZ1LOZ24 PO; +LIDO1PAD2 TD; +[UNRECOGNIZED DRUG - CODE] TD
[2017-11-23 19:03] VITALS: TEMP 36.4; Ht 167.6 cm; Wt 99.6 kg
[2017-11-23] MEDS ORDERED: DiphenhydrAMINE HCL 50 MG/ML VIAL IV STA (19:22)
[2017-11-23] MEDS ORDERED: PROCHLORPERAZINE 5 MG/ML 2 ML VIAL IV STA (19:22)
[2017-11-23 19:47] LABS: BASO % 0.2 %; BASO ABS # 0.02 K/uL (0-0.2); EOS % 1.2 %; EOS ABS # 0.11 K/uL (0-0.5); HEMATOCRIT 37.4 % (37-47); HEMOGLOBIN 12.9 g/dL (12.0-16.0); IG# 0.03 K/uL (0.00-0.02); LYMPH % 18.3 %; LYMPH ABS # 1.73 K/uL (1.2-3.4); MEAN CELL VOLUME 85.8 fL (80-100); MEAN CORPUSCULAR HEMOGLOBIN 29.6 pg (25-34); MEAN CORPUSCULAR HGB CONC 34.5 g/dl (32-36); MEAN PLATELET VOLUME 9.4 fL (7.4-10.4); MONO % 5.7 %; MONO ABS # 0.54 K/uL (0.11-0.59); NEUT % 74.3 %; NEUT ABS # 7.03 K/uL (1.4-6.5); PLATELET COUNT 248 K/uL (130-400); RED CELL DISTRIBUTION WIDTH CV 13.2 % (11.5-14.5); RED CELL DISTRIBUTION WIDTH SD 41.7 fL (36.4-46.3); WHITE BLOOD COUNT 9.46 K/uL (4.8-10.8)
[2017-11-23] MEDS ORDERED: CLON0.1T12 PO (19:48)
[2017-11-23] MEDS ORDERED: DEXAMETHASONE SOD INJ 4 MG/ML VIAL IV STA (20:36)
[2017-11-23 20:59] LABS: CALCIUM 9.1 mg/dl (8.5-10.1); CREATININE 0.86 mg/dl (0.60-1.20)
[2017-11-23 21:16] LABS: POTASSIUM 3.8 mmol/L (3.5-5.1)
--- NOTE | 2017-11-23 21:22 | DIAGNOSTIC IMAGING REPORT ---
HEAD WITHOUT CONTRAST (CT) CT DOSE: 537.48 mGy.cm HISTORY: Hypertension SORIANO eval for bleed TECHNIQUE: Multiaxial CT images of the head were performed without the use of intravenous contrast. A dose lowering technique was utilized adhering to the principles of ALARA. Comparison: 12/03/2015 Findings: The paranasal sinuses and mastoid air cells are clear. The calvarium and skull base are intact. The ventricles and sulci are within normal limits. There is no mass, hematoma, midline shift, or acute infarct. Impression: No acute intracranial abnormality. The above report was generated using voice recognition software. It may contain grammatical, syntax or spelling errors. Electronically signed by: Ajay Beth M.D. 11/23/2017 9:21 PM Dictated Date/Time: 11/23/2017 9:20 PM
--- NOTE | 2017-11-23 21:24 | DIAGNOSTIC IMAGING REPORT ---
CHEST 2 VIEWS ROUTINE CLINICAL HISTORY: sob eval for pna chest pain. Dyspnea. COMPARISON STUDY: 09/08/2017 FINDINGS: The bones soft tissues and hemidiaphragms are normal. The cardiomediastinal silhouette is normal. The lungs are clear. The pulmonary vasculature is normal. IMPRESSION: Negative chest. The above report was generated using voice recognition software. It may contain grammatical, syntax or spelling errors. Electronically signed by: Ajay Beth M.D. 11/23/2017 9:23 PM Dictated Date/Time: 11/23/2017 9:22 PM
[2017-11-23 21:44] VITALS: BP 134/97; PULSE 102; O2SAT 97
--- NOTE | 2017-11-24 00:24 | EMERGENCY ROOM VISIT NOTE ---
History Report prepared by Dion: Arsh Encarnacion Under the Supervision of: Dr. Alexander Hutchins M.D. First contact with patient: 19:11 Chief Complaint: HYPERTENSION Stated Complaint: HIGH BP AND MIGRAINE History of Present Illness The patient is a 37 year old female with a history of hypothyroidism, hypertension and migraines who presents to the Emergency Room with complaints of waxing and waning hypertension over the past week. She states that in the past, she has not been sure if her migraines had been causing her high blood pressure. The patient says that she was put on Atenolol 2 years ago, but over the past week, her blood pressure has been spiking up to 170/100. The patient notes that she was told to take Atenolol twice at night instead of once, and was put on Clonidine twice per day 2 days ago. She says that ever since she started the Clonidine, she has been getting more migraines. The patient states that she has been dizzy, with blurry vision. She notes that she has a history of gastroparesis, and she gets occasional mild chest pain and vomiting from that. The symptoms are chronic and not due for her. The patient adds that she has been short of breath with exertion the past couple days. She states that her heart has been racing, and her heart rate has gone up to even 121 while just sitting. She denies any new abdominal pain, leg pain, or leg swelling. The patient states that she has concern because 3 of her close family members have at a young age from heart attacks. She states that she has no personal history of blood clots, and she has not been on any recent long car or plane trips. The patient is not on control, and denies any chance of . The patient takes Levothyroxine daily. She is a non-smoker. Source of History: patient Onset: Over the past week Position: other (global) Symptom Intensity: as high as 170/120 Quality: other (hypertension) Timing: waxes/wanes Associated Symptoms: + headache (migraines), + SOB (on exertion), No abdominal pain (any new) Note: Associated symptoms: Dizzy, blurry vision, heart racing. Review of Systems See HPI for pertinent positives & negatives. A total of 10 systems reviewed and were otherwise negative. Past Medical & Surgical Medical Problems: (1) Chronic chest pain (2) Chronic neck pain (3) Depression (4) Gastroesophageal reflux disease (5) Hypothyroidism (6) Migraine (7) Migraine without aura (8) Partial small bowel obstruction (9) Polycystic ovaries (10) Right ovarian cyst Surgical Problems: (1) H/O sinus surgery (2) S/P cholecystectomy Family History Cancer Diabetes mellitus FHx: alcoholism Heart disease Hypertension Social History Smoking Status: Never Smoker Alcohol Use: none Drug Use: none Marital Status: single, in relationship Housing Status: lives with family Occupation Status: unemployed Current/Historical Medications Scheduled Acyclovir (Acyclovir), 5 ML TD [id number] Amlodipine (Norvasc), 5 MG PO DAILY Atenolol (Tenormin), 25 MG PO QPM Duloxetine HCl (Duloxetine HCl), 90 MG PO HS Ergocalciferol (Vitamin D [address]83 Unit), 1 TAB PO WK Fish Oil ([place]-3), 1 CAP PO DAILY Folic Acid (Folvite), 400 MCG PO DAILY Levothyroxine Sodium (Levothyroxine Sodium), 50 MCG PO DAILY Lidocaine (Lidocaine), 1 PATCH TD Q12 Magnesium Gluconate (Magnesium Gluconate), 125 MG PO BID Memantine (Namenda), 10 MG PO BID Metformin HCl (Metformin HCl), 500 MG PO BIDM Multivitamins/Minerals (Mvi With Minerals), 1 TAB PO DAILY Pantoprazole (Protonix), 40 MG PO BID Potassium Chloride Microencaps (Potassium Chloride Er), 20 MEQ PO HS Tizanidine (Tizanidine HCl), 4-8 MG PO HS Trazodone Hcl (Trazodone), 50 MG PO HS Scheduled PRN Baclofen (Baclofen), 20 MG PO TID PRN for Muscle Spasms Beclomethasone Dip (Qvar), 2 PUFFS INH BID PRN for SOB/Wheezing Benzocaine-Menthol (Mouth-Thro (Cepacol Sore Throat), 1 GLORIA PO TID PRN for SORE THROAT Buspirone HCl (Buspirone HCl), 5-10 MG PO TID PRN for Anxiety Clonidine Hcl (Catapres), 1 TAB PO BID PRN for BP SPIKES Fluticasone Propionate (Nasal) (Flonase Allergy Relief), 2 SPRAY YARELY BID PRN for Hydroxyzine HCl (Hydroxyzine HCl), 25 MG PO TID PRN for with baclofen Promethazine (Phenergan Suppository), 25 MG DC Q6H PRN for Nausea Promethazine HCl (Promethazine HCl), 25 MG PO HS PRN for Nausea or Migraine Zolmitriptan (Zolmitriptan), 2.5-5 MG PO UD PRN for Migraine Allergies Coded Allergies: Cephalexin (Verified Allergy, Mild, rash, 10/18/17) Morphine (Verified Allergy, Unknown, HIVES/ITCHING, N&V, 10/18/17) Topiramate (Verified Allergy, Unknown, neurological symptoms, 10/18/17) Physical Exam Vital Signs Date Time Temp Pulse Resp B/P (MAP) Pulse Ox O2 Delivery O2 Flow Rate FiO2 11/23/17 21:44 102 22 134/97 97 11/23/17 20:36 110 11/23/17 20:01 123/91 11/23/17 19:57 114 20 11/23/17 19:50 141/97 11/23/17 19:27 107 26 11/23/17 19:26 Room Air 11/23/17 19:15 154/100 11/23/17 19:03 36.4 122 20 168/113 100 Room Air Physical Exam Constitutional: Vital signs reviewed. Eyes: Pupils are equal round reactive to light. Conjunctiva are noninjected. ENT: Pharynx is clear without erythema or exudate. Mucous membranes are moist. Neck supple without meningeal signs. Respiratory: Clear to auscultation bilaterally. Breath sounds are equal bilaterally. Cardiovascular: Tachycardic with a heart rate of 115 and regular rhythm. No rubs or gallops. GI: Soft, nondistended and nontender. Bowel sounds are present. Musculoskeletal: No peripheral edema. No lower extremity tenderness. Integumentary: No cyanosis. Neurological: The patient is awake and alert. 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 Motor is 5 out of 5 all extremities. Sensation is intact to light touch all extremities. Normal speech. No pronator drift. Psychiatric: Normal affect. Medical Decision & Procedures ER Provider Diagnostic Interpretation: Radiology results as stated below per my review and the radiologist's interpretation: CHEST 2 VIEWS ROUTINE CLINICAL HISTORY: sob eval for pna chest pain. Dyspnea. COMPARISON STUDY: 09/08/2017 FINDINGS: The bones soft tissues and hemidiaphragms are normal. The cardiomediastinal silhouette is normal. The lungs are clear. The pulmonary vasculature is normal. IMPRESSION: Negative chest. The above report was generated using voice recognition software. It may contain grammatical, syntax or spelling errors. Electronically signed by: Ajay Beth M.D. 11/23/2017 9:23 PM Dictated Date/Time: 11/23/2017 9:22 PM HEAD WITHOUT CONTRAST (CT) CT DOSE: 537.48 mGy.cm HISTORY: Hypertension SORIANO eval for bleed TECHNIQUE: Multiaxial CT images of the head were performed without the use of intravenous contrast. A dose lowering technique was utilized adhering to the principles of ALARA. Comparison: 12/03/2015 Findings: The paranasal sinuses and mastoid air cells are clear. The calvarium and skull base are intact. The ventricles and sulci are within normal limits. There is no mass, hematoma, midline shift, or acute infarct. Impression: No acute intracranial abnormality. The above report was generated using voice recognition software. It may contain grammatical, syntax or spelling errors. Electronically signed by: Ajay Beth M.D. 11/23/2017 9:21 PM Dictated Date/Time: 11/23/2017 9:20 PM Laboratory Results 11/23/17 19:35 Red Blood Count 4.36, Mean Corpuscular Volume 85.8, Mean Corpuscular Hemoglobin 29.6, Mean Corpuscular Hemoglobin Concent 34.5, Mean Platelet Volume 9.4, Neutrophils (%) (Auto) 74.3, Lymphocytes (%) (Auto) 18.3, Monocytes (%) (Auto) 5.7, Eosinophils (%) (Auto) 1.2, Basophils (%) (Auto) 0.2, Neutrophils # (Auto) 7.03, Lymphocytes # (Auto) 1.73, Monocytes # (Auto) 0.54, Eosinophils # (Auto) 0.11, Basophils # (Auto) 0.02 11/23/17 19:35 Test 11/23/17 19:35 11/23/17 19:37 11/23/17 19:52 11/23/17 20:32 White Blood Count 9.46 K/uL (4.8-10.8) Red Blood Count 4.36 M/uL (4.2-5.4) Hemoglobin 12.9 g/dL (12.0-16.0) Hematocrit 37.4 % (37-47) Mean Corpuscular Volume 85.8 fL (80-100) Mean Corpuscular Hemoglobin 29.6 pg (25-34) Mean Corpuscular Hemoglobin Concent 34.5 g/dl (32-36) Platelet Count 248 K/uL (130-400) Mean Platelet Volume 9.4 fL (7.4-10.4) Neutrophils (%) (Auto) 74.3 % Lymphocytes (%) (Auto) 18.3 % Monocytes (%) (Auto) 5.7 % Eosinophils (%) (Auto) 1.2 % Basophils (%) (Auto) 0.2 % Neutrophils # (Auto) 7.03 K/uL (1.4-6.5) Lymphocytes # (Auto) 1.73 K/uL (1.2-3.4) Monocytes # (Auto) 0.54 K/uL (0.11-0.59) Eosinophils # (Auto) 0.11 K/uL (0-0.5) Basophils # (Auto) 0.02 K/uL (0-0.2) RDW Standard Deviation 41.7 fL (36.4-46.3) RDW Coefficient of Variation 13.2 % (11.5-14.5) Immature Granulocyte % (Auto) 0.3 % Immature Granulocyte # (Auto) 0.03 K/uL (0.00-0.02) Anion Gap 11.0 mmol/L (3-11) Est Creatinine Clear Calc Drug Dose 106.6 ml/min Estimated GFR () 100.0 Estimated GFR (Non- 86.3 BUN/Creatinine Ratio 8.5 (10-20) Calcium Level 9.1 mg/dl (8.5-10.1) Thyroid Stimulating Hormone (TSH) 5.570 uIu/ml (0.300-4.500) Free Thyroxine 1.17 ng/dl (0.80-1.60) Bedside D-Dimer 261 ng/mlFEU (0-450) Bedside Troponin I < 0.030 ng/ml (0-0.045) Urine Color YELLOW Urine Appearance CLEAR (CLEAR) Urine pH 5.0 (4.5-7.5) Urine Specific [place] 1.016 (1.000-1.030) Urine Protein NEG (NEG) Urine Glucose (UA) NEG (NEG) Urine Ketones TRACE (NEG) Urine Occult Blood NEG (NEG) Urine Nitrite NEG (NEG) Urine Bilirubin NEG (NEG) Urine Urobilinogen NEG (NEG) Urine Leukocyte Esterase NEG (NEG) Urine Test NEG (NEG) Urine Opiates Screen NEG (NEG) Urine Methadone, Qualitative NEG (NEG) Urine Barbiturates NEG (NEG) Urine Phencyclidine (PCP) Level NEG (NEG) Ur Amphetamine/Methamphetamine NEG (NEG) MDMA (Ecstasy) Screen POS (NEG) Urine Benzodiazepines Screen NEG (NEG) Urine Cocaine Metabolite NEG (NEG) Urine Marijuana (THC) NEG (NEG) Prothrombin Time 10.0 SECONDS (9.0-12.0) Prothromb Time International Ratio 1.0 (0.9-1.1) Activated Partial Thromboplast Time 28.0 SECONDS (21.0-31.0) Partial Thromboplastin Ratio 1.1 Laboratory results as reviewed by me. Medications Administered Medications (Trade) Dose Ordered Sig/Jean Claude Route Start Time Stop Time Status Last Admin Dose Admin Prochlorperazine Edisylate (Compazine Inj) 10 mg NOW STAT IV 11/23/17 19:22 11/23/17 19:25 DC 11/23/17 19:50 10 MG Diphenhydramine HCl (Benadryl Inj) 50 mg NOW STAT IV 11/23/17 19:22 11/23/17 19:25 DC 11/23/17 19:50 50 MG Dexamethasone Sodium Phosphate (Decadron Inj) 10 mg NOW STAT IV 11/23/17 20:36 11/23/17 20:37 DC 11/23/17 20:53 10 MG ECG Per My Interpretation Indication: SOB/dyspnea Rate (beats per minute): 104 Rhythm: sinus tachycardia Findings: other (no ST elevations, no PVCs) ED Course 1914: The patient was evaluated in room B4B. A complete history and physical exam was performed. 1921: Compazine Inj 10 mg IV, Benadryl Inj 50 mg IV. 2034: I reevaluated the patient and she still has a headache. I discussed the test results with her. She says that she does not any elicit drugs. 2035: Decadron Inj 10 mg IV. 2127: Upon reevaluation, the patient was still slightly hypertensive currently. I discussed elizabeth's findings with her. She verbalized agreement of the treatment plan, and will follow-up with her doctor. She was discharged home. Medical Decision This is a 37-year-old female who presents with headache and elevated blood pressure. Differential diagnosis includes migraine headache, intracranial hemorrhage, medication noncompliance, poorly controlled hypertension, pulmonary embolism. I did perform a limited focused review of portions of the patient's old chart on the electronic medical record. The patient was here on 10/18 for abdominal pain. I did evaluate the patient as noted above. IV access was established. The patient was placed on a continuous cardiac monitor technician. I did order and personally review the patient's 12-lead EKG and chest x-ray as described above. I did order and review the patient's blood work as noted in the electronic medical record. TFTs are unremarkable, troponin and d-dimer are negative. I did order a CT of the head. I did review the images myself as well as the radiology report as described above. There is no evidence of bleed. Urinalysis does not show infection. I did treat the patient with IV Compazine and Benadryl. Her blood pressure came down without any antihypertensive medications. Her heart rate also came down. I did discuss the test results with the patient. I did recommend close follow-up with her doctor. She was discharged in good condition. Medication Reconcilliation Current Medication List: was personally reviewed by me Blood Pressure Screening Patient's blood pressure: Elevated blood pressure Blood pressure disposition: Referred to PCP Impression Primary Impression: Headache Additional Impression: High blood pressure Scribe Attestation The scribe's documentation has been prepared under my direct and personally reviewed by me in its entirety. I confirm that the note above accurately reflects all work, treatment, procedures, and medical decision making performed by me. Departure Information Dispostion Home / Self-Care Referrals Melania Zhou D.O. (PCP) Patient Instructions Headache Pain, Hypertension Dc, My [facility] Additional Instructions You have been examined and treated today on an emergency basis only. This is not a substitute for, or an effort to provide, complete comprehensive medical care. It is impossible to recognize and treat all injuries or illnesses in a single emergency department visit. It is therefore important that you follow up closely with your physician. Call as soon as possible for an appointment. Return for worsening symptoms or if you develop fever, visual symptoms or any other concerning symptoms. Problem Qualifiers Primary Impression: Headache Headache type: unspecified Headache chronicity pattern: unspecified pattern Intractability: not intractable Qualified Codes: R51 - Headache Additional Impression: High blood pressure Hypertension type: unspecified Qualified Codes: I10 - Essential (primary) hypertension
== END 2017-11-23 21:44 | disposition home or self-care (01) ==
LOC: C.EDB 18:58
DX: R51 Headache (principal); I10 Essential (primary) hypertension; F32.9 Major depressive disorder, single episode, unspecified; K21.9 Gastro-esophageal reflux disease without esophagitis; E03.9 Hypothyroidism, unspecified; Z83.3 Family history of diabetes mellitus; Z82.49 Family history of ischemic heart disease and other diseases of the circulatory system; Z88.8 Allergy status to other drugs, medicaments and biological substances; Z88.5 Allergy status to narcotic agent

== ENCOUNTER 2017-12-19 17:31 | Emergency (ER) | payer OTHER ==
[~2017-12-19] VITALS: Ht 167.6 cm; Wt 98.2 kg
[~2017-12-19 17:31] MED LIST changes: +CLON0.1T12 PO
[2017-12-19 17:47] VITALS: TEMP 36.8; Ht 167.6 cm; Wt 98.2 kg
[2017-12-19] MEDS ORDERED: SODIUM CHLORIDE 0.9% 1000ML 1,000 ML IV STA (19:45)
[2017-12-19] MEDS ORDERED: PROCHLORPERAZINE 5 MG/ML 2 ML VIAL IV STA (19:45)
[2017-12-19] MEDS ORDERED: KETOROLAC TROMETHAMINE 30 MG/ML VIAL IV STA (19:45)
[2017-12-19] MEDS ORDERED: DiphenhydrAMINE HCL 50 MG/ML VIAL IV STA (19:45)
[2017-12-19 19:46] VITALS: O2SAT 98
--- NOTE | 2017-12-19 20:12 | DIAGNOSTIC IMAGING REPORT ---
CHEST ONE VIEW PORTABLE HISTORY: 37 years-old Female Chest Pain acute atypical chest pain COMPARISON: Chest radiograph 11/23/2017 TECHNIQUE: Portable AP view of the chest FINDINGS: Cardiomediastinal and hilar silhouettes are within normal limits. There is no pneumothorax, pleural effusion, focal airspace consolidation or overt pulmonary edema. The bones of the chest appear grossly intact. Cholecystectomy clips are noted. IMPRESSION: No acute process. The above report was generated using voice recognition software. It may contain grammatical, syntax or spelling errors. Electronically signed by: Hadley Persaud M.D. 12/19/2017 8:11 PM Dictated Date/Time: 12/19/2017 8:10 PM
[2017-12-19 20:16] LABS: BASO % 0.2 %; BASO ABS # 0.02 K/uL (0-0.2); EOS % 1.5 %; EOS ABS # 0.15 K/uL (0-0.5); HEMATOCRIT 38.8 % (37-47); HEMOGLOBIN 13.2 g/dL (12.0-16.0); IG# 0.04 K/uL (0.00-0.02); LYMPH % 23.5 %; MEAN CORPUSCULAR HEMOGLOBIN 29.3 pg (25-34); MEAN PLATELET VOLUME 9.1 fL (7.4-10.4); MONO ABS # 0.49 K/uL (0.11-0.59); NEUT % 69.4 %; NEUT ABS # 6.79 K/uL (1.4-6.5); PLATELET COUNT 300 K/uL (130-400); RED CELL DISTRIBUTION WIDTH CV 13.3 % (11.5-14.5); RED CELL DISTRIBUTION WIDTH SD 41.7 fL (36.4-46.3); WHITE BLOOD COUNT 9.79 K/uL (4.8-10.8)
[2017-12-19 20:33] LABS: BLOOD UREA NITROGEN 9 mg/dl (7-18); CALCIUM 9.4 mg/dl (8.5-10.1); CARBON DIOXIDE 22 mmol/L (21-32); CREATININE 0.93 mg/dl (0.60-1.20); GLUCOSE 103 mg/dl (70-99); POTASSIUM 3.6 mmol/L (3.5-5.1); SODIUM 139 mmol/L (136-145)
[2017-12-19 20:38] LABS: CKMB < 0.5 ng/ml (0.5-3.6)
[2017-12-19] MEDS ORDERED: OPTIRAY 300 IV PRN (20:45)
[2017-12-19] MEDS ORDERED: DEXAMETHASONE INJ 10 MG in SYRINGE 0 ML IV SCH (21:00)
--- NOTE | 2017-12-19 21:35 | DIAGNOSTIC IMAGING REPORT ---
(CHEST FOR PE) ANGIO WITH CT DOSE: 540.37 mGy.cm HISTORY: 37 years-old Female presents with acute shortness of breath and elevated d-dimer level TECHNIQUE: Multiple CTA images of the chest were obtained after the intravenous administration of 75 ml Optiray 320. Coronal and sagittal MIPS were obtained from the axial data set and were submitted for review. A dose lowering technique was utilized adhering to the principles of ALARA. COMPARISON: Chest radiograph 12/19/2017, CTA chest 01/29/2017 FINDINGS: CTA: Heart is normal in size without pericardial effusion. Thoracic aorta is normal in both course and caliber without aneurysm or dissection. The imaged great vessels appear widely patent. The left vertebral artery emanates strictly from the aortic arch. The pulmonary arterial tree is opacified to level of the segmental branches and demonstrates no focal filling defects to suggest pulmonary thromboembolic disease. CT CHEST: No dominant thyroid nodule identified. No pathologic adenopathy. Dependent subsegmental bibasilar atelectasis without pneumothorax, pleural effusion or lobar airspace consolidation. No suspicious pulmonary nodules identified. Subpleural 3 mm nodule of the apical posterior segment left upper lobe. Central airways are patent. Prior cholecystectomy. No acute process of the imaged upper abdomen. Soft tissues are unremarkable. Bones appear intact. IMPRESSION: 1. No acute intrathoracic abnormality identified, specifically no acute aortic pathology or evidence of pulmonary thromboembolic disease. 2. No lobar airspace consolidation or pathologic adenopathy. 3. Prior cholecystectomy. The above report was generated using voice recognition software. It may contain grammatical, syntax or spelling errors. Electronically signed by: Hadley Persaud M.D. 12/19/2017 9:34 PM Dictated Date/Time: 12/19/2017 9:29 PM
[2017-12-19 22:26] VITALS: BP 122/85; PULSE 68; O2SAT 98
--- NOTE | 2017-12-19 23:15 | EMERGENCY ROOM VISIT NOTE ---
History Report prepared by Dion: David Delatorre Under the Supervision of: Dr. Tigre Salgado D.O. First contact with patient: 19:33 Chief Complaint: CHEST PAIN Stated Complaint: PAIN IN CHEST, ELEVATED BP, MIGRAINE X1 MONTH Nursing Triage Summary: Patient ambulatory to triage, with an upright and steady gait, states "I have been having problems with my BP despite taking 2 meds. I have been having chest pain for over a month now, off and on. It has gotten worse. My HR goes up to 140 or 150. The pain is worse when I lay down. My migraine has been hanging on for about a month too. That doesn't make me feel great." History of Present Illness The patient is a 37 year old female who presents to the Emergency Room with complaints of intermittent chest pain that she has been experiencing since October , 1 month ago. The patient states that she feels both "sharp" pains, as well as "fluttering" sensations. She can feel the fluttering sensations up into the side of her neck. The pain is worsened by laying down, and improved by being up and moving around. She also complains of a migraine and notes that she has been trying to lay down to remedy the migraine. Migraine is unchanged in any way from her typical headaches. The patient denies any change in vision, fevers, shortness of breath, pain with urination, and melena. She does have nausea, vomiting, and diarrhea at baseline due to gastroparesis. She does have a history of hypertension as well. Source of History: patient Onset: 1 month ago Position: chest Quality: sharp, other (Fluttering) Timing: intermittent Modifying Factors (Worsening): other (Laying down) Modifying Factors (Relieving): other (Being up and moving around) Associated Symptoms: + headache, No SOB Review of Systems See HPI for pertinent positives & negatives. A total of 10 systems reviewed and were otherwise negative. Past Medical & Surgical Medical Problems: (1) Chronic chest pain (2) Chronic neck pain (3) Depression (4) Gastroesophageal reflux disease (5) Hypothyroidism (6) Migraine (7) Migraine without aura (8) Partial small bowel obstruction (9) Polycystic ovaries (10) Right ovarian cyst Surgical Problems: (1) H/O sinus surgery (2) S/P cholecystectomy Family History Cancer Diabetes mellitus FHx: alcoholism Heart disease Hypertension Social History Smoking Status: Never Smoker Alcohol Use: none Drug Use: none Marital Status: single, in relationship Housing Status: lives with family Occupation Status: unemployed Current/Historical Medications Scheduled Amlodipine (Norvasc), 5 MG PO DAILY Atenolol (Tenormin), 25 MG PO QPM Duloxetine HCl (Duloxetine HCl), 90 MG PO HS Ergocalciferol (Vitamin D 85278 Unit), 1 TAB PO WK Fish Oil (Holland-3), 1 CAP PO DAILY Folic Acid (Folvite), 400 MCG PO DAILY Levothyroxine Sodium (Levothyroxine Sodium), 50 MCG PO DAILY Magnesium Gluconate (Magnesium Gluconate), 125 MG PO BID Memantine (Namenda), 10 MG PO BID Metformin HCl (Metformin HCl), 500 MG PO BIDM Multivitamins/Minerals (Mvi With Minerals), 1 TAB PO DAILY Pantoprazole (Protonix), 40 MG PO BID Potassium Chloride Microencaps (Potassium Chloride Er), 20 MEQ PO HS Tizanidine (Tizanidine HCl), 4-8 MG PO HS Trazodone Hcl (Trazodone), 50 MG PO HS Scheduled PRN Baclofen (Baclofen), 20 MG PO TID PRN for Muscle Spasms Beclomethasone Dip (Qvar), 2 PUFFS INH BID PRN for SOB/Wheezing Benzocaine-Menthol (Mouth-Thro (Cepacol Sore Throat), 1 GLORIA PO TID PRN for SORE THROAT Buspirone HCl (Buspirone HCl), 5-10 MG PO TID PRN for Anxiety Clonidine Hcl (Catapres), 1 TAB PO BID PRN for BP SPIKES Fluticasone Propionate (Nasal) (Flonase Allergy Relief), 2 SPRAY YARELY BID PRN for Hydroxyzine HCl (Hydroxyzine HCl), 25 MG PO TID PRN for with baclofen Promethazine (Phenergan Suppository), 25 MG IA Q6H PRN for Nausea Promethazine HCl (Promethazine HCl), 25 MG PO HS PRN for Nausea or Migraine Zolmitriptan (Zolmitriptan), 2.5-5 MG PO UD PRN for Migraine Allergies Coded Allergies: Cephalexin (Verified Allergy, Mild, rash, 10/18/17) Morphine (Verified Allergy, Unknown, HIVES/ITCHING, N&V, 10/18/17) Topiramate (Verified Allergy, Unknown, neurological symptoms, 10/18/17) Physical Exam Vital Signs Date Time Temp Pulse Resp B/P (MAP) Pulse Ox O2 Delivery O2 Flow Rate FiO2 12/19/17 22:26 68 16 122/85 98 12/19/17 20:46 103 18 148/96 97 Room Air 12/19/17 19:48 103 12/19/17 19:46 100 20 135/99 98 Room Air 12/19/17 19:46 98 Room Air 12/19/17 17:47 99 Room Air 12/19/17 17:47 36.8 117 20 152/102 99 Room Air Physical Exam GENERAL: Sitting up in bed, alert, well appearing, well nourished, no distress, non-toxic EYE EXAM: normal conjunctiva. OROPHARYNX: no exudate, no erythema, lips, buccal mucosa, and tongue normal and mucous membranes are moist NECK: supple, no nuchal rigidity, no adenopathy, non-tender LUNGS: Clear to auscultation. Normal chest wall mechanics HEART: Tachycardic and regular. No murmurs, S1 normal and S2 normal ABDOMEN: abdomen soft, non-tender, normo-active bowel sounds, no masses, no rebound or guarding. BACK: Back is symmetrical on inspection and there is no deformity, no midline tenderness, no CVA tenderness. SKIN: no rashes and no bruising UPPER EXTREMITIES: upper extremities are grossly normal. LOWER EXTREMITIES: No pitting edema. NEURO EXAM: Normal sensorium, cranial nerves II-XII grossly intact, normal speech, no gross weakness of arms, no gross weakness of legs. Medical Decision & Procedures ER Provider Diagnostic Interpretation: Radiology results as stated below per my review and the radiologist's interpretation: (CHEST FOR PE) ANGIO WITH CT DOSE: 540.37 mGy.cm HISTORY: 37 years-old Female presents with acute shortness of breath and elevated d-dimer level TECHNIQUE: Multiple CTA images of the chest were obtained after the intravenous administration of 75 ml Optiray 320. Coronal and sagittal MIPS were obtained from the axial data set and were submitted for review. A dose lowering technique was utilized adhering to the principles of ALARA. COMPARISON: Chest radiograph 12/19/2017, CTA chest 01/29/2017 FINDINGS: CTA: Heart is normal in size without pericardial effusion. Thoracic aorta is normal in both course and caliber without aneurysm or dissection. The imaged great vessels appear widely patent. The left vertebral artery emanates strictly from the aortic arch. The pulmonary arterial tree is opacified to level of the segmental branches and demonstrates no focal filling defects to suggest pulmonary thromboembolic disease. CT CHEST: No dominant thyroid nodule identified. No pathologic adenopathy. Dependent subsegmental bibasilar atelectasis without pneumothorax, pleural effusion or lobar airspace consolidation. No suspicious pulmonary nodules identified. Subpleural 3 mm nodule of the apical posterior segment left upper lobe. Central airways are patent. Prior cholecystectomy. No acute process of the imaged upper abdomen. Soft tissues are unremarkable. Bones appear intact. IMPRESSION: 1. No acute intrathoracic abnormality identified, specifically no acute aortic pathology or evidence of pulmonary thromboembolic disease. 2. No lobar airspace consolidation or pathologic adenopathy. 3. Prior cholecystectomy. The above report was generated using voice recognition software. It may contain grammatical, syntax or spelling errors. Electronically signed by: Hadley Persaud M.D. 12/19/2017 9:34 PM Dictated Date/Time: 12/19/2017 9:29 PM CHEST ONE VIEW PORTABLE HISTORY: 37 years-old Female Chest Pain acute atypical chest pain COMPARISON: Chest radiograph 11/23/2017 TECHNIQUE: Portable AP view of the chest FINDINGS: Cardiomediastinal and hilar silhouettes are within normal limits. There is no pneumothorax, pleural effusion, focal airspace consolidation or overt pulmonary edema. The bones of the chest appear grossly intact. Cholecystectomy clips are noted. IMPRESSION: No acute process. The above report was generated using voice recognition software. It may contain grammatical, syntax or spelling errors. Electronically signed by: Hadley Persaud M.D. 12/19/2017 8:11 PM Dictated Date/Time: 12/19/2017 8:10 PM Laboratory Results 12/19/17 19:50 Red Blood Count 4.51, Mean Corpuscular Volume 86.0, Mean Corpuscular Hemoglobin 29.3, Mean Corpuscular Hemoglobin Concent 34.0, Mean Platelet Volume 9.1, Neutrophils (%) (Auto) 69.4, Lymphocytes (%) (Auto) 23.5, Monocytes (%) (Auto) 5.0, Eosinophils (%) (Auto) 1.5, Basophils (%) (Auto) 0.2, Neutrophils # (Auto) 6.79, Lymphocytes # (Auto) 2.30, Monocytes # (Auto) 0.49, Eosinophils # (Auto) 0.15, Basophils # (Auto) 0.02 12/19/17 19:50 Test 12/19/17 19:50 White Blood Count 9.79 K/uL (4.8-10.8) Red Blood Count 4.51 M/uL (4.2-5.4) Hemoglobin 13.2 g/dL (12.0-16.0) Hematocrit 38.8 % (37-47) Mean Corpuscular Volume 86.0 fL (80-100) Mean Corpuscular Hemoglobin 29.3 pg (25-34) Mean Corpuscular Hemoglobin Concent 34.0 g/dl (32-36) Platelet Count 300 K/uL (130-400) Mean Platelet Volume 9.1 fL (7.4-10.4) Neutrophils (%) (Auto) 69.4 % Lymphocytes (%) (Auto) 23.5 % Monocytes (%) (Auto) 5.0 % Eosinophils (%) (Auto) 1.5 % Basophils (%) (Auto) 0.2 % Neutrophils # (Auto) 6.79 K/uL (1.4-6.5) Lymphocytes # (Auto) 2.30 K/uL (1.2-3.4) Monocytes # (Auto) 0.49 K/uL (0.11-0.59) Eosinophils # (Auto) 0.15 K/uL (0-0.5) Basophils # (Auto) 0.02 K/uL (0-0.2) RDW Standard Deviation 41.7 fL (36.4-46.3) RDW Coefficient of Variation 13.3 % (11.5-14.5) Immature Granulocyte % (Auto) 0.4 % Immature Granulocyte # (Auto) 0.04 K/uL (0.00-0.02) D-Dimer 640 ug/L FEU (0-500) Anion Gap 10.0 mmol/L (3-11) Est Creatinine Clear Calc Drug Dose 97.9 ml/min Estimated GFR () 91.0 Estimated GFR (Non- 78.5 BUN/Creatinine Ratio 9.3 (10-20) Calcium Level 9.4 mg/dl (8.5-10.1) Total Creatine Kinase 75 U/L (26-192) Creatine Kinase MB < 0.5 ng/ml (0.5-3.6) Creatine Kinase MB Ratio (0-3.0) Troponin I < 0.015 ng/ml (0-0.045) Laboratory results per my review. Medications Administered Medications (Trade) Dose Ordered Sig/Jean Claude Route Start Time Stop Time Status Last Admin Dose Admin Ketorolac Tromethamine (Toradol Inj) 30 mg NOW STAT IV 12/19/17 19:45 12/19/17 19:51 DC 12/19/17 19:56 30 MG Prochlorperazine Edisylate (Compazine Inj) 10 mg NOW STAT IV 12/19/17 19:45 12/19/17 19:52 DC 12/19/17 19:55 10 MG Diphenhydramine HCl (Benadryl Inj) 50 mg NOW STAT IV 12/19/17 19:45 12/19/17 19:52 DC 12/19/17 19:56 50 MG Sodium Chloride 1,000 ml @ 999 mls/hr Q1H1M STAT IV 12/19/17 19:45 12/19/17 20:45 DC 12/19/17 19:56 999 MLS/HR ECG Per My Interpretation Indication: chest pain Rate (beats per minute): 110 Rhythm: sinus tachycardia Findings: other (Normal axis, no PVVCs) ED Course ED COURSE: Vital signs were reviewed and showed hypertensive vitals. The patients medical record was reviewed The above diagnostic studies were performed and reviewed. ED treatments and interventions as stated above. 1938: The patient was evaluated in room B3. A complete history and physical examination was performed. 1944: Ordered Sodium Chloride 1000 mL @ 99 mL/hr IV, Benadryl 50 mg IV, Compazine 10 mg IV, Toradol 30 mg IV. 2047: I updated the patient at this time. She was feeling better 2099: Ordered Dexamethasone 2.5 mL @ 1 mL/min IV. 2208: Upon reevaluation, the patient is resting in bed.I discussed my findings with the patient and she understands and agrees with the treatment plan. Based on the patients age, coexisting illnesses, exam and lab findings the decision to treat as an outpatient was made. The patient remained stable while under my care. The patient appeared well at the time of discharge. Medical Decision Differential diagnoses includes but is not limited to acute coronary syndrome, myocardial infarction, pericarditis, pulmonary embolus, aortic dissection, pneumonia, pneumothorax, musculoskeletal, shingles, esophageal. Patient is a 37-year-old female who presents the ER for chest pain which has been coming and going since October. She notes that it has been present all day today since this morning. Lying down provokes her chest pain. Up and moving around makes it better. She describes a sharp and stabbing. CBC along with BMP and troponin was unremarkable. D-dimer was elevated. CT PE was performed and negative. EKG unremarkable. Patient has no history of diabetes, hyperlipidemia, smoking, CAD or sudden in the family at a young age. Low risk per heart score. Patient was updated at bedside. Migraine was treated with IV fluids, Benadryl, Toradol and Compazine. She did feel better. She discharged follow-up with PCP as an outpatient. No signs of meningitis or encephalitis. Discussed with Pt concerning signs and symptoms to watch out for. Pt was instructed to follow up with their PCP and discussed with the patient their option to return to the ED at anytime for persistent or worsening symptoms. The appropriate anticipatory guidance and out-patient management, including indications for return to the emergency department, were explained at length to the patient and understood. Medication Reconcilliation Current Medication List: was personally reviewed by me Blood Pressure Screening Patient's blood pressure: Elevated blood pressure Blood pressure disposition: Elevated BP felt to be situational Impression Primary Impression: Chest pain Additional Impression: Headache Scribe Attestation The scribe's documentation has been prepared under my direction and personally reviewed by me in its entirety. I confirm that the note above accurately reflects all work, treatment, procedures, and medical decision making performed by me. Departure Information Dispostion Home / Self-Care Referrals Melania Zhou D.O. (PCP) Forms Call Back Authorization, HOME CARE DOCUMENTATION FORM, IMPORTANT VISIT INFORMATION Patient Instructions [facility] Additional Instructions Please follow up with your primary care doctor with in the next 24 hours. Any worsening of your symptoms, please return to the ED immediately. This includes any fevers greater than 100.4, worsening pain, chest pain, shortness breath, persistent nausea, vomiting, unable to eat or drink, or any other concerning signs or symptoms from your standpoint. Problem Qualifiers Primary Impression: Chest pain Chest pain type: unspecified Qualified Codes: R07.9 - Chest pain, unspecified Additional Impression: Headache Headache type: unspecified Headache chronicity pattern: acute headache Intractability: not intractable Qualified Codes: R51 - Headache
== END 2017-12-19 22:22 | disposition home or self-care (01) ==
LOC: C.EDB 17:33
DX: R07.9 Chest pain, unspecified (principal); R51 Headache; I10 Essential (primary) hypertension; F32.9 Major depressive disorder, single episode, unspecified; K21.9 Gastro-esophageal reflux disease without esophagitis; E03.9 Hypothyroidism, unspecified; Z79.899 Other long term (current) drug therapy; Z88.5 Allergy status to narcotic agent; Z88.8 Allergy status to other drugs, medicaments and biological substances; Z88.1 Allergy status to other antibiotic agents

== ENCOUNTER 2018-01-16 20:25 | Observation (INO) | payer OTHER ==
[~2018-01-16] VITALS: Ht 167.6 cm; Wt 98.2 kg
[~2018-01-16 20:25] MED LIST changes: -LIDO1PAD2 TD; -[UNRECOGNIZED DRUG - CODE] TD
[2018-01-16] MEDS ORDERED: LORAZEPAM 2 MG/ML 1 ML VIAL IV STA (21:09)
[2018-01-16] MEDS ORDERED: MAGNESIUM SULFATE 1GM / D5W 100 ML IV STA (21:09)
[2018-01-16] MEDS ORDERED: METOCLOPRAMIDE HCL INJ 5 MG/ML 2 ML VIAL IV STA (21:09)
[2018-01-16] MEDS ORDERED: DEXAMETHASONE SOD INJ 4 MG/ML VIAL IV STA (21:09)
[2018-01-16] MEDS ORDERED: DiphenhydrAMINE HCL 50 MG/ML VIAL IV STA (21:09)
[2018-01-16] MEDS ORDERED: SODIUM CHLORIDE 0.9% 1000ML 1,000 ML IV STA ×2 (21:09→22:24)
[2018-01-16] MEDS ORDERED: DICL50TA3 PO (21:31)
--- NOTE | 2018-01-16 22:14 | EMERGENCY ROOM VISIT NOTE ---
History Report prepared by Dion: Zarina Mejia Under the Supervision of: Dr. Whitney Emanuel D.O. First contact with patient: 20:51 Chief Complaint: HEADACHE Stated Complaint: MIGRAINE EYE-R History of Present Illness The patient is a 37 year old female who presents to the Emergency Room with complaints of worsening headache over the past week. She has had a mild headache for the past month which worsened in the past week. She has a history of migraines and states that her current headache feels like a migraine, but is more severe. Not the worst headache of her life, not thunderclap in origin. She is having dizziness and sensitivity to light and sound which she usually have with her migraines. She states she has been lightheaded before, but the dizziness today felt slightly worse. She was recently started on diclofenac which is not improving her headaches and making her feel dizzy. She has been unable to sleep despite taking trazodone. She feels foggy and slow. She is nauseous and has tingling in her lips. She denies any fever, cold symptoms, or sinus infection. The patient has been on many different medications in the past including amitriptyline, Depakote, and Topamax. She has also had Botox injections and nerve blocks. She is currently on Namenda which seems to be helping. She has gotten ketamine injections for her migraines in the past. She is on baclofen. Patient denies any recent changes to diet. No other known triggers for her migraines. Patient states her migraines began at age 18. States no known family history of migraines. Patient states last time she had several days of significant migrainous when her blood pressure was elevated. States her blood pressure has been better controlled recently. Pt showed me a treatment plan as advised by her neurologist given that she has been tried on many different agents for her migraines. On review of EMR, patient had a normal noncontrast head CT in October of this year. Patient has had multiple CAT scans and MRIs previously. Source of History: patient Onset: 1 week ago Position: head Quality: other (migraine) Timing: worsening Associated Symptoms: + nausea, No fevers Note: Pt reports difficulty sleeping, feeling foggy and slow, dizziness, light and sound sensitivity. Review of Systems See HPI for pertinent positives & negatives. A total of 10 systems reviewed and were otherwise negative. Past Medical & Surgical Medical Problems: (1) Chronic chest pain (2) Chronic neck pain (3) Depression (4) Gastroesophageal reflux disease (5) Hypothyroidism (6) Migraine (7) Migraine without aura (8) Partial small bowel obstruction (9) Polycystic ovaries (10) Right ovarian cyst Surgical Problems: (1) H/O sinus surgery (2) S/P cholecystectomy Family History Cancer Diabetes mellitus FHx: alcoholism Heart disease Hypertension Social History Smoking Status: Never Smoker Alcohol Use: none Drug Use: none Marital Status: single, in relationship Housing Status: lives with family Occupation Status: unemployed Current/Historical Medications Scheduled Amlodipine (Norvasc), 5 MG PO DAILY Atenolol (Tenormin), 25 MG PO QPM Diclofenac (Voltaren), 50 MG PO TID Divalproex Sodium (Divalproex Sodium Dr), 500 MG PO TID Duloxetine HCl (Duloxetine HCl), 90 MG PO HS Ergocalciferol (Vitamin D [address]113 Unit), 1 TAB PO WK Fish Oil ([place]-3), 1 CAP PO DAILY Folic Acid (Folvite), 400 MCG PO DAILY Levothyroxine Sodium (Levothyroxine Sodium), 50 MCG PO DAILY Magnesium Gluconate (Magnesium Gluconate), 125 MG PO BID Memantine (Namenda), 10 MG PO BID Metformin HCl (Metformin HCl), 500 MG PO BIDM Multivitamins/Minerals (Mvi With Minerals), 1 TAB PO DAILY Pantoprazole (Protonix), 40 MG PO BID Potassium Chloride Microencaps (Potassium Chloride Er), 20 MEQ PO HS Tizanidine (Tizanidine HCl), 4-8 MG PO HS Trazodone Hcl (Trazodone), 50 MG PO HS Scheduled PRN Baclofen (Baclofen), 20 MG PO TID PRN for Muscle Spasms Beclomethasone Dip (Qvar), 2 PUFFS INH BID PRN for SOB/Wheezing Benzocaine-Menthol (Mouth-Thro (Cepacol Sore Throat), 1 GLORIA PO TID PRN for SORE THROAT Buspirone HCl (Buspirone HCl), 5-10 MG PO TID PRN for Anxiety Clonidine Hcl (Catapres), 1 TAB PO BID PRN for BP SPIKES Fluticasone Propionate (Nasal) (Flonase Allergy Relief), 2 SPRAY YARELY BID PRN for Hydroxyzine HCl (Hydroxyzine HCl), 25 MG PO TID PRN for with baclofen Promethazine (Phenergan Suppository), 25 MG TN Q6H PRN for Nausea Promethazine HCl (Promethazine HCl), 25 MG PO HS PRN for Nausea or Migraine Zolmitriptan (Zolmitriptan), 2.5-5 MG PO UD PRN for Migraine Allergies Coded Allergies: Cephalexin (Verified Allergy, Mild, rash, 01/16/18) Morphine (Verified Allergy, Unknown, HIVES/ITCHING, N&V, 01/16/18) Topiramate (Verified Allergy, Unknown, neurological symptoms, 01/16/18) Physical Exam Vital Signs Date Time Temp Pulse Resp B/P (MAP) Pulse Ox O2 Delivery O2 Flow Rate FiO2 01/17/18 00:32 73 16 140/89 95 Room Air 01/17/18 00:20 79 01/16/18 22:56 83 18 125/80 97 Room Air 01/16/18 20:39 36.8 97 20 143/96 97 Room Air Physical Exam GENERAL: alert, well appearing, well nourished, no distress, non-toxic. Photophobia and phonophobia noted during exam. EYE EXAM: normal conjunctiva, PERRL and EOM's grossly intact OROPHARYNX: no exudate, no erythema, lips, buccal mucosa, and tongue normal and mucous membranes are moist NECK: supple, no nuchal rigidity, no adenopathy, non-tender LUNGS: Clear to auscultation. Normal chest wall mechanics HEART: no murmurs, S1 normal and S2 normal ABDOMEN: abdomen soft, non-tender, normo-active bowel sounds, no masses, no rebound or guarding. BACK: Back is symmetrical on inspection and there is no deformity, no midline tenderness, no CVA tenderness. SKIN: no rashes and no bruising UPPER EXTREMITIES: upper extremities are grossly normal. Full range of motion, normal pulses. LOWER EXTREMITIES: No pitting edema. Full range of motion, normal pulses. NEURO EXAM: Normal sensorium, cranial nerves II-XII grossly intact, normal speech, no gross weakness of arms, no gross weakness of legs. No ataxia. No facial droop. Medical Decision & Procedures Laboratory Results 01/16/18 21:38 Test 01/16/18 21:38 01/17/18 02:01 Anion Gap 6.0 mmol/L (3-11) Est Creatinine Clear Calc Drug Dose 90.2 ml/min Estimated GFR () 82.4 Estimated GFR (Non- 71.1 BUN/Creatinine Ratio 7.3 (10-20) Calcium Level 8.6 mg/dl (8.5-10.1) Magnesium Level 2.2 mg/dl (1.8-2.4) Total Bilirubin 0.4 mg/dl (0.2-1) Aspartate Amino Transf (AST/SGOT) 31 U/L (15-37) Alanine Aminotransferase (ALT/SGPT) 35 U/L (12-78) Alkaline Phosphatase 82 U/L (45-117) Total Protein 7.8 gm/dl (6.4-8.2) Albumin 3.7 gm/dl (3.4-5.0) Globulin 4.1 gm/dl (2.5-4.0) Albumin/Globulin Ratio 0.9 (0.9-2) Lipase 109 U/L (73-393) Thyroid Stimulating Hormone (TSH) 7.680 uIu/ml (0.300-4.500) Free Thyroxine 0.90 ng/dl (0.80-1.60) Chemistry Specimen Hemolysis Activated Partial Thromboplast Time 27.6 SECONDS (21.0-31.0) Partial Thromboplastin Ratio 1.1 D-Dimer 570 ug/L FEU (0-500) Medications Administered Medications (Trade) Dose Ordered Sig/Jean Claude Route Start Time Stop Time Status Last Admin Dose Admin Sodium Chloride 1,000 ml @ 999 mls/hr Q1H1M STAT IV 01/16/18 21:09 01/16/18 22:09 DC 01/16/18 21:41 999 MLS/HR Diphenhydramine HCl (Benadryl Inj) 50 mg NOW STAT IV 01/16/18 21:09 01/16/18 21:11 DC 01/16/18 21:41 50 MG Metoclopramide HCl (Reglan Inj) 10 mg NOW STAT IV 01/16/18 21:09 01/16/18 21:12 DC 01/16/18 21:41 10 MG Dexamethasone Sodium Phosphate (Decadron Inj) 10 mg NOW STAT IV 01/16/18 21:09 01/16/18 21:12 DC 01/16/18 21:42 10 MG Magnesium Sulfate 100 ml @ 100 mls/hr NOW STAT IV 01/16/18 21:09 01/16/18 22:08 DC 01/16/18 21:42 100 MLS/HR Lorazepam (Ativan Inj) 0.5 mg NOW STAT IV 01/16/18 21:09 01/16/18 21:12 DC 01/16/18 21:41 0.5 MG Sodium Chloride 1,000 ml @ 999 mls/hr Q1H1M STAT IV 01/16/18 22:24 01/16/18 23:24 DC 01/16/18 22:24 999 MLS/HR Ketamine HCl 25 mg/Sodium Chloride 50.5 ml @ 202 mls/hr NOW STAT IV 01/16/18 23:43 01/16/18 23:57 DC 01/17/18 00:13 202 MLS/HR Ketorolac Tromethamine (Toradol Inj) 30 mg Q6H PRN IV 01/17/18 01:15 01/19/18 15:04 DC 01/18/18 10:53 30 MG ED Course 2054: The patient was evaluated in room B6. A complete history and physical exam was performed. 2108: Ativan Inj 0.5 mg IV, Magnesium Sulfate 100 ml @ 100 mls/hr IV, Decadron Inj 10 mg IV, Reglan Inj 10 mg IV, Benadryl Inj 50 mg IV, Sodium Chloride 1000 ml @ 999 mls/hr IV. 2220: I reevaluated the patient. She is asleep. 2340: Patient states she is still having pain. Discussed ketamine dose with pharmacist. 0010: Signed out to Dr. Castillo. I would anticipate improvement and eventual DC home, but she will recheck the patient following the ketamine infusion. Medical Decision Differential Diagnosis includes but is not limited to headache, tension headache , cluster headache, migraine, subarachnoid hemorrhage, meningitis, mass, central venous thrombus, concussion, trauma and epidural/subdural hemorrhage. Pt with longstanding hx of migraines and sees neurologist regularly. Pt with treatment plan from neuro as she has tried many agents. This is what was ordered for her initially and then second line agent of using ketamine also. Pt given IVF and room lights turned off, door closed to make every effort to minimize and potential exacerbating factors for her headaches. On my recheck initially pt had falling asleep. VS stable throughout. Pt signed out to shift supervisor melting pending recheck of her symptoms. While pt states she has had success before with her ER treatment plan, given the chronicity of her headache if her symptoms aren't improved she may require admission for status migrainosus. I did not feel pt's hx/presentation consistent with SAH or infectious etiology and did not feel she warranted an LP. Medication Reconcilliation Current Medication List: was personally reviewed by me Blood Pressure Screening Patient's blood pressure: Elevated blood pressure Blood pressure disposition: Elevated BP felt to be situational Impression Primary Impression: Migraine Scribe Attestation The scribe's documentation has been prepared under my direction and personally reviewed by me in its entirety. I confirm that the note above accurately reflects all work, treatment, procedures, and medical decision making performed by me. Departure Information Dispostion Home / Self-Care Prescriptions Divalproex Sodium (Divalproex Sodium Dr) 500 Mg Tabec 500 MG PO TID for 10 Days, #30 TAB Prov: Marcella Barrera M.D. 01/19/18 Referrals Melania Zhou D.O. (PCP) Patient Instructions My [facility] Additional Instructions Please call follow-up with your neurologist. Discussed with them your current medications and regimen. Please discuss with him the recent new medication you were tried on. Please try and avoid any potential triggers for your migraines. Please stay well-hydrated. If you have any new or concerning symptoms, worsening headache, atypical headaches, dizziness, vision changes, recurrent vomiting, or any other new concerns, please return the emergency room. Problem Qualifiers Primary Impression: Migraine Migraine type: with aura Status migrainosus presence: with status migrainosus Intractability: not intractable Qualified Codes: G43.101 - Migraine with aura, not intractable, with status migrainosus
[2018-01-16] MEDS ORDERED: SODIUM CHLORIDE 0.9% IV STA (23:43)
[2018-01-16] MEDS ORDERED: KETAMINE HCL IV STA (23:43)
[2018-01-17] VITALS (7 sets, daily range): BP systolic 117–163; BP diastolic 74–97; PULSE 58–74; TEMP 36.7–36.8; O2SAT 92–96; Ht 167.6 cm; Wt 98.2 kg
--- NOTE | 2018-01-17 01:16 | EMERGENCY ROOM VISIT NOTE ---
ED Visit Note First contact with patient: 01:14 The case was signed out to me at change of shift awaiting administration of IV ketamine for analgesia. On repeat evaluation of the patient, she has had absolutely no relief of her headache. Despite having multiple IV medications, the patient feels no better. She describes having an admission to the hospital 3 years ago for a persistent migraine. She does not believe that she will get better during this emergency department stay. The patient will be evaluated by the [facility] Hospitalist. I discussed the case with Dr. Mercado.
[2018-01-17 02:32] LABS: ALBUMIN 3.7 gm/dl (3.4-5.0); ALT/SGPT 35 U/L (12-78); AST/SGOT 31 U/L (15-37); BLOOD UREA NITROGEN 7 mg/dl (7-18); CALCIUM 8.6 mg/dl (8.5-10.1); CARBON DIOXIDE 27 mmol/L (21-32); CREATININE 1.01 mg/dl (0.60-1.20); GLUCOSE 109 mg/dl (70-99); LIPASE 109 U/L (73-393); POTASSIUM 3.8 mmol/L (3.5-5.1); SODIUM 140 mmol/L (136-145)
[2018-01-17 02:37] LABS: BASO % 0.2 %; BASO ABS # 0.02 K/uL (0-0.2); EOS % 1.3 %; EOS ABS # 0.11 K/uL (0-0.5); HEMOGLOBIN 12.5 g/dL (12.0-16.0); IG# 0.03 K/uL (0.00-0.02); LYMPH % 20.8 %; LYMPH ABS # 1.75 K/uL (1.2-3.4); MEAN CELL VOLUME 85.1 fL (80-100); MEAN CORPUSCULAR HEMOGLOBIN 29.6 pg (25-34); MEAN CORPUSCULAR HGB CONC 34.7 g/dl (32-36); MEAN PLATELET VOLUME 9.8 fL (7.4-10.4); MONO % 6.2 %; MONO ABS # 0.52 K/uL (0.11-0.59); NEUT % 71.1 %; NEUT ABS # 5.99 K/uL (1.4-6.5); PLATELET COUNT 249 K/uL (130-400); RED CELL DISTRIBUTION WIDTH CV 13.6 % (11.5-14.5); WHITE BLOOD COUNT 8.42 K/uL (4.8-10.8)
[2018-01-17 02:38] LABS: PTT PATIENT 27.6 SECONDS (21.0-31.0)
[2018-01-17 02:58] LABS: ALKALINE PHOSPHATASE 82 U/L (45-117); TOTAL PROTEIN 7.8 gm/dl (6.4-8.2)
[2018-01-17] MEDS ORDERED: PROCHLORPERAZINE INJ 5 MG in SYRINGE 4 ML IV PRN (03:15)
[2018-01-17] MEDS ORDERED: IBUPROFEN 200 MG TAB PO PRN (03:15)
[2018-01-17] MEDS ORDERED: TRAMADOL HCL 50 MG TAB PO PRN (03:15)
[2018-01-17] MEDS ORDERED: BECLOMETHASONE DIP HFA 80 MCG 8.7G INH INH PRN (03:15)
[2018-01-17] MEDS ORDERED: BACLOFEN TAB 20 MG TAB PO PRN (03:15)
[2018-01-17] MEDS ORDERED: hydrOXYzine HCL 25 MG TAB PO PRN (03:15)
[2018-01-17] MEDS ORDERED: ACETAMINOPHEN 325 MG TAB PO PRN (03:15)
[2018-01-17] MEDS ORDERED: NITROGLYCERIN 0.4 MG SL PER TAB CHARGE SL PRN (03:15)
[2018-01-17] MEDS ORDERED: METOCLOPRAMIDE HCL INJ 5 MG/ML 2 ML VIAL IV PRN (03:15)
[2018-01-17] MEDS ORDERED: GADAVIST IV PRN (03:45)
[2018-01-17] MEDS ORDERED: IV FLUIDS COMPLETED PRN (04:30)
[2018-01-17] MEDS ORDERED: OPTIRAY 320 IV PRN (05:00)
[2018-01-17] MEDS: LEVOTHYROXINE 50 MCG TAB PO SCH (06:38)
--- NOTE | 2018-01-17 06:45 | DIAGNOSTIC IMAGING REPORT ---
CHEST ONE VIEW PORTABLE HISTORY: 37 years-old Female cp acute atypical chest pain COMPARISON: Chest radiograph 12/19/2017, CTA chest 01/17/2018 TECHNIQUE: Portable AP view of the chest FINDINGS: Cardiomediastinal and hilar silhouettes are within normal limits. No pneumothorax, pleural effusion, focal airspace consolidation or overt pulmonary edema. Bones of the chest appear grossly intact. No opaque foreign body. IMPRESSION: No acute process. The above report was generated using voice recognition software. It may contain grammatical, syntax or spelling errors. Electronically signed by: Hadley Persaud M.D. 01/17/2018 6:44 AM Dictated Date/Time: 01/17/2018 6:43 AM
--- NOTE | 2018-01-17 07:24 | DIAGNOSTIC IMAGING REPORT ---
Brain MRI WITH AND WITHOUT CONTRAST HISTORY: Headache. TECHNIQUE: Multiplanar multisequence MRI of the brain was performed both before and after the intravenous administration of contrast. COMPARISON STUDY: Brain MRI 02/29/2016. FINDINGS: There are no areas of restricted diffusion to suggest acute infarction. The pituitary gland is at the upper limits of normal measuring 9.5 mm in height. This demonstrates a convex superior border. This remains unchanged and demonstrates homogeneous enhancement. Mild mucosal thickening within the left sphenoid sinus. The paranasal sinuses are clear. The mastoid air cells are clear. The ventricles and sulci are within normal limits for age. There is no mass, hematoma, midline shift. The major vascular flow-voids at the skull base are well maintained. Postcontrast sequences show no areas of abnormal enhancement. IMPRESSION: No acute intracranial abnormality. Stable pituitary prominence. Electronically signed by: Rick Brown M.D. 01/17/2018 7:23 AM Dictated Date/Time: 01/17/2018 7:17 AM
[2018-01-17] MEDS ORDERED: NURSING VERBAL MED ORDER ONE (07:30)
--- NOTE | 2018-01-17 07:33 | DIAGNOSTIC IMAGING REPORT ---
(CHEST FOR PE) ANGIO WITH CLINICAL HISTORY: 37 years-old Female presenting with chest pain and migraine, concern for pulmonary embolus. TECHNIQUE: Multidetector CT angiography of the chest was performed after administration of intravenous contrast. 3-D volumetric and/or maximum intensity projection (MIP) images were subsequently reconstructed for review. IV contrast: 92 mL of Optiray 320. A dose lowering technique was used consistent with the principles of ALARA (as low as reasonably achievable). COMPARISON: 12/19/2017. CT DOSE (mGy.cm): The estimated cumulative dose is 548.23 mGy.cm. FINDINGS: Marketing Services Coordinator topogram: Cholecystectomy clips. Image quality is degraded by exclusion of the lung apices from the [id number]. Pulmonary vasculature: The study is adequate for assessment of the pulmonary vascular tree. No filling defect within the pulmonary arteries to suggest embolus. Main pulmonary artery is not enlarged. No flattening of the interventricular septum. No intracardiac filling defect. No reflux of contrast into the hepatic veins. Remaining chest: On soft tissue windows, thoracic inlet excluded from the [id number]. No axillary, supraclavicular, hilar, or mediastinal lymphadenopathy. Four-vessel aortic arch. Normal heart size. No pericardial effusion. Trace bilateral pleural effusions. Cholecystectomy clips noted. On lung windows, dependent minimal subpleural consolidation, likely passive atelectasis. No interlobular septal thickening. No significant bronchial wall thickening. Central airways patent. On bone windows, normal osseous structures. IMPRESSION: 1. No evidence of pulmonary embolus. 2. Trace bilateral pleural effusions with minimal dependent passive atelectasis. No other evidence of acute intrathoracic pathology. Electronically signed by: Luis Enrique Conteh M.D. 01/17/2018 7:32 AM Dictated Date/Time: 01/17/2018 7:24 AM
[2018-01-17] MEDS: SUMATRIPTAN SUCCINATE 50 MG TAB PO PRN ×2 (07:34→10:53)
[2018-01-17] MEDS ORDERED: PROMETHAZINE HCL INJ 12.5 MG in SODIUM CHLORIDE 0.9% 50ML 50 ML IV ONE (07:45)
[2018-01-17] MEDS: FoLIC ACID TAB 400 MCG TAB PO SCH (07:52)
[2018-01-17] MEDS: CEROVITE ADV FORMULA TAB PO SCH (07:52)
[2018-01-17] MEDS: AMLODIPINE BESYLATE 5 MG TAB PO SCH (07:52)
[2018-01-17] MEDS: MEMANTINE 10 MG TAB PO SCH ×2 (07:52→20:12)
[2018-01-17] MEDS: PANTOprazole SOD 40 MG TAB PO SCH ×2 (07:53→20:12)
[2018-01-17] MEDS: ENOXAPARIN 40 MG/0.4 ML SYR SC SCH (08:10)
[2018-01-17] MEDS: KETOROLAC TROMETHAMINE 30 MG/ML VIAL IV PRN (08:48)
--- NOTE | 2018-01-17 09:42 | HISTORY & PHYSICAL EXAMINATION ---
DATE OF ADMISSION: 01/17/2018 PRIMARY CARE DOCTOR: Dr. Zhou. CHIEF COMPLAINT: Headache. HISTORY OF PRESENT ILLNESS: History is obtained from the patient and records. Medical history significant for chronic migraine on Namenda, mood disorder, polycystic ovaries syndrome, hypothyroidism, gastroparesis. Recent confinement last 09/2016 for gastroparesis flareup. As per the patient, she's had migraine headaches since teenage years. Seen at [facility] [place], last March 2017. Headaches attributed to chronic migraine w/ occipital neuralgia. Namenda started. The patient told to continue atenolol, magnesium, Cymbalta; Zomig for abortive therapy -not working as per the patient. Some improvement of headache with Namenda. Last few months more migraines, more constant, not a day without it, just increased in intensity, usually right-sided headache with photophobia. Migraine worse with noise. Some improvement with patient isolating herself in a dark room. Last 3 days, constant, worsening migraine, worsening tinnitus, new blurred vision of the right eye. Patient also complaining of substernal tightness, nonpleuritic, nonradiating, no shortness of breath. Usual abdominal discomfort from gastroparesis, Intractable headache symptoms at the ER despite ketamine, diphenhydramine, Reglan, Decadron, and Ativan administration. MEDICAL HISTORY: As above. mood disorder. SURGERIES: Cholecystectomy, sinus surgery. HOME MEDICATIONS: Include Norvasc, atenolol, Cepacol, Qvar, buspirone, Catapres, Voltaren, duloxetine, vitamin D, Folvite, fish oil, Flonase, hydroxyzine, levothyroxine, magnesium, Namenda, metformin for PCOS, multivitamins, Klor-Con, Protonix, promethazine, tizanidine, trazodone, Zolmitriptan. ALLERGIES: KEFLEX, MORPHINE, TOPAMAX. FAMILY HISTORY: Diabetes, heart disease. PERSONAL AND SOCIAL HISTORY: nonsmoker, no chronic ETOH intake, unemployed. REVIEW OF SYSTEMS: As per HPI, all 10 systems reviewed. All other ROS negative. PHYSICAL EXAMINATION: VITAL SIGNS: Blood pressure was noted to be 125/80, pulse rate 18, temperature 36.8, sats 97% on room air. GENERAL: Noted to be uncomfortable, obese, no distress. SKIN: Normal color, warm. HEENT: [place] palpebral conjunctivae. No ptosis. Dry mucosa. NECK: Short neck, supple. CHEST: Clear to auscultation. No tenderness. HEART: Regular rate and rhythm. No murmur. ABDOMEN: Some distention. Usual tenderness on light palpation. EXTREMITIES: Minimal edema. NEUROLOGIC: Coherent. No gross focality. No facial asymmetry. LABORATORY DATA: Hemoglobin 12.5, hematocrit 36, white cells 8.42, platelets 249. Sodium 140, potassium 3.8, chloride 107, BUN 7, creatinine 1, glucose 109. LFTs, lipase normal. D-dimer was abnormal. Chest x-ray, no acute process. EKG as per my interpretation, low voltage, no ischemia. CT chest initial read, no PE. ASSESSMENT: 1. Atypical chest pain likely from anxiety 2. intractable migraine rule out brain tumor with recent change in usual description of chronic migraine symptoms. 2. Hypertension, stable. 4. History of gastroparesis. 5. Mood/Anxiety DSO, symptoms at baseline 6. hx PCOS PLAN: Observation PCU 2D echo RE chest pain Anxiolytic as needed Brain MRI RE change in migraine headache description Analgesia, judicious narcotic use Neurology consult RE intractable migraine DVT prophylaxis. Lovenox subcu if no brain tumor on MRI. Full code. MTDD
--- NOTE | 2018-01-17 10:56 | ECHOCARDIOGRAM REPORT ---
*NOTICE TO RECEIVING CONSTITUTION PARTY AGENCY This information is strictly Confidential and protected under [place] law. [place] law prohibits you from making any further disclosure of this information unless further disclosure is expressly permitted by the written consent of the person to whom it pertains or is authorized by law. A general authorization for the release of medical or other information is not sufficient for this purpose. Hospital accepts no responsibility if the information is made available to any other person, INCLUDING THE PATIENT. Interpretation Summary * Name: KAROLYN MONROY Study Date: 01/17/2018 07:29 AM BP: 132/88 mmHg * Patient Location: [facility]\S\N278\S\2 HR: 59 * : 1980 (M/d/yyyy) Gender: Female Height: 66 in * Age: 37 yrs Ethnicity: [place] Weight: 217 lb * Ordering Physician: Escobar Holland * Referring Physician: Self, Referred * Performed By: Betsy Velasco RCS * * Reason For Study: CHEST PAIN * BSA: 2.1 m2 * -- Conclusions -- * The study was technically difficult but adequate for the referral indication. * There is borderline concentric left ventricular hypertrophy. * No regional wall motion abnormalities noted. * The LV Ejection Fraction = 60-65%. * The right ventricle is normal in size and function. * There is no significant valvular heart disease. Procedure Details * A complete two-dimensional transthoracic echocardiogram was performed (2D, M-mode, Doppler and color flow Doppler). Left Ventricle * The left ventricle is normal in size. * There is borderline concentric left ventricular hypertrophy. * Left ventricular systolic function is normal. * Ejection Fraction = 60-65%. * The left ventricular wall motion is normal. * No regional wall motion abnormalities noted. Right Ventricle * The right ventricle is normal in size and function. * The right ventricular systolic function is normal as assessed by tricuspid annular plane systolic excursion (TAPSE) (normal >1.5 cm). Atria * The left atrial size is normal. * Right atrial size is normal. * There is no evidence of atrial septal defect, but resolution does not allow assessment for a patent foramen ovale. Mitral Valve * The mitral valve is normal. * There is no mitral valve stenosis. * Significant mitral regurgitation is absent. Tricuspid Valve * The tricuspid valve is normal. * There is no tricuspid stenosis. * Significant tricuspid regurgitation is absent. Aortic Valve * The aortic valve is trileaflet. * Aortic stenosis is absent. * There is no significant aortic regurgitation. Pulmonic Valve * The pulmonary valve is not well seen, but the Doppler examination is normal without significant regurgitation or stenosis. Great Vessels * The aortic root and proximal ascending aorta are normal sized. Pericardium/Pleural * There is no pericardial effusion. Great Vessels * Normal inferior vena cava diameter and respiratory variation suggests normal central venous pressure. Left Ventricular Diastolic Function * Left ventricular diastolic function is normal. MMode 2D Measurements and Calculations IVSd 1.3 cm IVSs 1.6 cm LVIDd 4.1 cm LVIDs 2.5 cm LVPWd 1.5 cm LVPWs 1.5 cm IVS/LVPW 0.86 FS 38.7 % EDV(Teich) 73.1 ml ESV(Teich) 22.2 ml EF(Teich) 69.6 % EDV(cubed) 67.6 ml ESV(cubed) 15.5 ml EF(cubed) 77.0 % % IVS thick 28.1 % % LVPW thick 0 % LV mass(C)d 211.6 grams LV mass(C)dI 102.2 grams/m\S\2 LV mass(C)s 136.2 grams LV mass(C)sI 65.8 grams/m\S\2 SV(Teich) 50.9 ml SI(Teich) 24.6 ml/m\S\2 SV(cubed) 52.0 ml SI(cubed) 25.1 ml/m\S\2 Ao root diam 2.7 cm Ao root area 5.9 cm\S\2 LA dimension 2.6 cm LA/Ao 0.96 LVOT diam 2.0 cm LVOT area 3.1 cm\S\2 LVAd ap4 32.7 cm\S\2 LVLd ap4 8.2 cm EDV(MOD-sp4) 107.2 ml EDV(sp4-el) 111.2 ml LVAs ap4 23.6 cm\S\2 LVLs ap4 7.0 cm ESV(MOD-sp4) 62.6 ml ESV(sp4-el) 67.0 ml EF(MOD-sp4) 41.6 % EF(sp4-el) 39.8 % LVAd ap2 30.3 cm\S\2 LVLd ap2 8.0 cm EDV(MOD-sp2) 93.2 ml EDV(sp2-el) 96.9 ml LVAs ap2 22.0 cm\S\2 LVLs ap2 7.2 cm ESV(MOD-sp2) 54.1 ml ESV(sp2-el) 56.8 ml EF(MOD-sp2) 41.9 % EF(sp2-el) 41.4 % LVLd %diff -1.70 % EDV(MOD-bp) 100.7 ml LVLs %diff 2.3 % ESV(MOD-bp) 58.5 ml EF(MOD-bp) 41.9 % SV(MOD-sp4) 44.6 ml SI(MOD-sp4) 21.5 ml/m\S\2 SV(MOD-sp2) 39.1 ml SI(MOD-sp2) 18.9 ml/m\S\2 SV(MOD-bp) 42.1 ml SI(MOD-bp) 20.4 ml/m\S\2 SV(sp4-el) 44.3 ml SI(sp4-el) 21.4 ml/m\S\2 SV(sp2-el) 40.1 ml SI(sp2-el) 19.3 ml/m\S\2 Doppler Measurements and Calculations MV E max qian 81.4 cm/sec MV A max qian 53.4 cm/sec MV E/A 1.5 MV P1/2t max qian 89.7 cm/sec MV P1/2t 83.5 msec MVA(P1/2t) 2.6 cm\S\2 MV dec slope 314.7 cm/sec\S\2 MV dec time 0.17 sec Ao V2 max 121.7 cm/sec Ao max PG 5.9 mmHg Ao max PG (full) 3.0 mmHg BUNNY(V,A) 2.2 cm\S\2 BUNNY(V,D) 2.2 cm\S\2 LV V1 max PG 2.9 mmHg LV V1 max 84.9 cm/sec PA V2 max 107.0 cm/sec PA max PG 4.6 mmHg
--- NOTE | 2018-01-17 13:26 | Neurology Consultation ---
Neurology Consultation Date of Consultation: January 17, 2018. Attending Physician: Marcella Barrera M.D. Primary Care Physician: Melania Zhou D.O. Reason for Consultation: headache History of Present Illness Source: patient Cassi is a 37 year old female who has a PMH chronic migraine, on Namenda mood disorder, polycystic ovaries, hypothyroidism, muscle contraction, occipital neuralgia, gastroparesis. she has had migraine since in her teens. She has daily headaches which were manageable 3/10 which are pounding and improved since starting Namenda. She had a bout of hypertension and increased the burning intensity which is usually right-sided with photophobia. Seen by [facility] and started on Namenda 03/29/17. She was continued on atenolol, magnesium, Cymbalta; abortive therapy, recommended was Zomig which is not working. Last 3 days, constant, worsening migraine, worsening tinnitus, new blurred vision of the right eye. On arrival she was complaining of substernal tightness, nonpleuritic, nonradiating, no shortness of breath. She was given ketamine, diphenhydramine, Reglan, Decadron, and Ativan in the ED with no relief. Currently she is in a dark room and states she headache is 8/ 10 and nothing they have given her has helped or relieved the headache. denies CP, SOB, abdominal pain, weakness, numbness tingling, current N,V, vision changes. Past Medical/Surgical History Medical Problems: (1) Abdominal pain Status: Acute (2) Abdominal wall contusion Status: Acute (3) Back pain Status: Acute (4) Chest pain Status: Acute (5) Chest pain Status: Acute (6) Constipation Status: Acute (7) Diffuse abdominal pain Status: Acute (8) Epigastric abdominal pain Status: Acute (9) Epigastric abdominal pain Status: Acute (10) Epigastric abdominal pain Status: Acute (11) Gastroparesis Status: Acute (12) Gastroparesis Status: Acute (13) Gastroparesis Status: Acute (14) Headache Status: Acute (15) Headache Status: Acute (16) Headache Status: Acute (17) Migraine Status: Chronic (18) Nausea Status: Acute (19) Nausea & vomiting Status: Acute (20) Ovarian cyst Status: Acute (21) R10.84 Status: Acute (22) Sore throat Status: Acute (23) Substernal precordial chest pain Status: Acute (24) Syncope Status: Acute (25) Upper respiratory infection Status: Acute (26) Vomiting Status: Acute (27) Vomiting and diarrhea Status: Acute Family History Mother: HTN, cancer, pertinent history of Grandmother: diabetes Social History Smoking Status: Never smoker Drug Use: none Marital Status: single, in relationship Housing Status: lives with family Occupation Status: unemployed Allergies Coded Allergies: Cephalexin (Verified Allergy, Mild, rash, 01/16/18) Morphine (Verified Allergy, Unknown, HIVES/ITCHING, N&V, 01/16/18) Topiramate (Verified Allergy, Unknown, neurological symptoms, 01/16/18) Current Inpatient Medications Current Inpatient Medications Medications (Trade) Dose Ordered Sig/Jean Claude Route Start Time Stop Time Status Last Admin Dose Admin Ketorolac Tromethamine (Toradol Inj) 30 mg Q6H PRN IV 01/17/18 01:15 01/22/18 01:14 01/17/18 08:48 30 MG Enoxaparin Sodium (Lovenox Inj) 40 mg Q24H SC 01/17/18 09:00 02/16/18 08:59 Acetaminophen (Tylenol Tab) 650 mg Q4H PRN PO 01/17/18 03:15 02/16/18 03:14 Nitroglycerin (Nitrostat Tab) 0.4 mg UD PRN SL 01/17/18 03:15 02/16/18 03:14 Tramadol HCl (Ultram Tab) not relieved by tylenol @ Q6H PRN PO 01/17/18 03:15 02/16/18 03:14 Prochlorperazine Edisylate 5 mg/ Syringe 5 ml @ 5 mls/min Q6H PRN IV 01/17/18 03:15 02/16/18 03:14 Metoclopramide HCl (Reglan Inj) 10 mg Q6H PRN IV 01/17/18 03:15 02/16/18 03:14 Ibuprofen (Advil Tab) 400 mg Q6H PRN PO 01/17/18 03:15 02/16/18 03:14 Amlodipine Besylate (Norvasc Tab) 5 mg DAILY PO 01/17/18 09:00 02/16/18 08:59 01/17/18 07:52 5 MG Atenolol (Tenormin Tab) 25 mg QPM PO 01/17/18 21:00 02/16/18 20:59 Baclofen (Lioresal Tab) 20 mg TID PRN PO 01/17/18 03:15 02/16/18 03:14 Beclomethasone Dipropionate (Qvar 80 Mcg Hfa Inhaler) 2 puffs BID PRN INH 01/17/18 03:15 02/16/18 03:14 Buspirone HCl (Buspar Tab) 5 mg TID PRN PO 01/17/18 03:15 02/16/18 03:14 01/17/18 07:52 5 MG Duloxetine HCl (Cymbalta Cap) 90 mg HS PO 01/17/18 21:00 02/16/18 20:59 Folic Acid (Folvite Tab) 400 mcg DAILY PO 01/17/18 09:00 02/16/18 08:59 01/17/18 07:52 400 MCG Hydroxyzine HCl (Vistaril Tab) 25 mg TID PRN PO 01/17/18 03:15 02/16/18 03:14 Levothyroxine Sodium (Synthroid Tab) 50 mcg DAILYBB PO 01/17/18 06:30 02/16/18 06:29 01/17/18 06:38 50 MCG Memantine (Namenda Tab) 10 mg BID PO 01/17/18 09:00 02/16/18 08:59 01/17/18 07:52 10 MG Multivitamins/ Minerals (Multivitamin W/ Minerals Tab) 1 tab DAILY PO 01/17/18 09:00 02/16/18 08:59 01/17/18 07:52 1 TAB Pantoprazole Sodium (Protonix Tab) 40 mg BID PO 01/17/18 09:00 02/16/18 08:59 01/17/18 07:53 40 MG Trazodone HCl (Desyrel Tab) 50 mg HS PO 01/17/18 21:00 02/16/18 20:59 Sumatriptan Succinate (Imitrex Tab) 50 mg Q2H PRN PO 01/17/18 03:15 02/16/18 03:14 01/17/18 10:53 50 MG Gadobutrol (Gadavist) 9.5 mmol UD PRN IV 01/17/18 03:45 01/21/18 03:44 Miscellaneous (Iv Fluids Completed) 1 ea PRN PRN N/A 01/17/18 04:30 01/17/19 04:29 Ioversol (Optiray 320) 92 ml UD PRN IV 01/17/18 05:00 01/21/18 04:59 Physical Exam Vital Signs (Past 24 Hrs): Date Time Temp Pulse Resp B/P (MAP) Pulse Ox O2 Delivery O2 Flow Rate FiO2 01/17/18 12:13 36.7 58 18 163/97 (119) 94 Room Air 01/17/18 08:00 93 Room Air 01/17/18 07:19 36.7 60 16 130/79 (96) 93 Room Air 01/17/18 04:20 36.8 73 14 132/88 95 Room Air 01/17/18 03:05 78 18 138/99 98 Room Air 01/17/18 00:32 73 16 140/89 95 Room Air 01/17/18 00:20 79 01/16/18 22:56 83 18 125/80 97 Room Air 01/16/18 20:39 36.8 97 20 143/96 97 Room Air Physical Exam: Constitutional: appearance nourished, healthy and normal Ears, Nose, Mouth and Throat: mucous membranes moist, no injection and skin normal, eyes normal Cardiovascular: normal S-1 and S-2 and regular rate and rhythm Respiratory: clear to auscultation (CTA) and no rales, ronchi or wheeze Musculoskeletal: no peripheral edema and good distal pulses Skin: no stigmata of neurocutaneous disease noted and normal and intact Eyes: extraocular muscles intact (EOMI) and pupils equal, round and reactive to light (PERRL), good vacular pulsations NEUROLOGIC EXAMINATION: Mental status: Alert and interactive Oriented to full date and location Oriented to person Speech fluent with no evidence of aphasia Cranial Nerves no facial asymmetry Reflexes: Deep tendon reflexes were symmetrical and graded 2/5. Plantar responses were flexor. Sensory: to light touch Coordination: Romberg absent Gait/Stance: Posture lying in bed Motor: Negative for pronator drift of out stretched arms with eyes closed. 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, hip flex plantar flex ext 5/5 bilaterally Laboratory Results Past 24 Hours: 01/16/18 21:38 Red Blood Count 4.23, Mean Corpuscular Volume 85.1, Mean Corpuscular Hemoglobin 29.6, Mean Corpuscular Hemoglobin Concent 34.7, Mean Platelet Volume 9.8, Neutrophils (%) (Auto) 71.1, Lymphocytes (%) (Auto) 20.8, Monocytes (%) (Auto) 6.2, Eosinophils (%) (Auto) 1.3, Basophils (%) (Auto) 0.2, Neutrophils # (Auto) 5.99, Lymphocytes # (Auto) 1.75, Monocytes # (Auto) 0.52, Eosinophils # (Auto) 0.11, Basophils # (Auto) 0.02 01/16/18 21:38 Test 01/16/18 21:38 01/17/18 02:01 01/17/18 03:00 01/17/18 08:06 White Blood Count 8.42 K/uL (4.8-10.8) Red Blood Count 4.23 M/uL (4.2-5.4) Hemoglobin 12.5 g/dL (12.0-16.0) Hematocrit 36.0 % (37-47) Mean Corpuscular Volume 85.1 fL (80-100) Mean Corpuscular Hemoglobin 29.6 pg (25-34) Mean Corpuscular Hemoglobin Concent 34.7 g/dl (32-36) Platelet Count 249 K/uL (130-400) Mean Platelet Volume 9.8 fL (7.4-10.4) Neutrophils (%) (Auto) 71.1 % Lymphocytes (%) (Auto) 20.8 % Monocytes (%) (Auto) 6.2 % Eosinophils (%) (Auto) 1.3 % Basophils (%) (Auto) 0.2 % Neutrophils # (Auto) 5.99 K/uL (1.4-6.5) Lymphocytes # (Auto) 1.75 K/uL (1.2-3.4) Monocytes # (Auto) 0.52 K/uL (0.11-0.59) Eosinophils # (Auto) 0.11 K/uL (0-0.5) Basophils # (Auto) 0.02 K/uL (0-0.2) RDW Standard Deviation 41.0 fL (36.4-46.3) RDW Coefficient of Variation 13.6 % (11.5-14.5) Immature Granulocyte % (Auto) 0.4 % Immature Granulocyte # (Auto) 0.03 K/uL (0.00-0.02) Anion Gap 6.0 mmol/L (3-11) Est Creatinine Clear Calc Drug Dose 90.2 ml/min Estimated GFR () 82.4 Estimated GFR (Non- 71.1 BUN/Creatinine Ratio 7.3 (10-20) Calcium Level 8.6 mg/dl (8.5-10.1) Magnesium Level 2.2 mg/dl (1.8-2.4) Total Bilirubin 0.4 mg/dl (0.2-1) Aspartate Amino Transf (AST/SGOT) 31 U/L (15-37) Alanine Aminotransferase (ALT/SGPT) 35 U/L (12-78) Alkaline Phosphatase 82 U/L (45-117) Total Protein 7.8 gm/dl (6.4-8.2) Albumin 3.7 gm/dl (3.4-5.0) Globulin 4.1 gm/dl (2.5-4.0) Albumin/Globulin Ratio 0.9 (0.9-2) Lipase 109 U/L (73-393) Thyroid Stimulating Hormone (TSH) 7.680 uIu/ml (0.300-4.500) Free Thyroxine 0.90 ng/dl (0.80-1.60) Chemistry Specimen Hemolysis Activated Partial Thromboplast Time 27.6 SECONDS (21.0-31.0) Partial Thromboplastin Ratio 1.1 D-Dimer 570 ug/L FEU (0-500) Urine Color YELLOW Urine Appearance CLEAR (CLEAR) Urine pH 7.5 (4.5-7.5) Urine Specific [place] 1.010 (1.000-1.030) Urine Protein NEG (NEG) Urine Glucose (UA) NEG (NEG) Urine Ketones NEG (NEG) Urine Occult Blood NEG (NEG) Urine Nitrite NEG (NEG) Urine Bilirubin NEG (NEG) Urine Urobilinogen NEG (NEG) Urine Leukocyte Esterase NEG (NEG) Urine WBC (Auto) 0 /hpf (0-5) Urine RBC (Auto) 0-4 /hpf (0-4) Urine Hyaline Casts (Auto) 0 /lpf (0-5) Urine Epithelial Cells (Auto) 0-5 /lpf (0-5) Urine Bacteria (Auto) NEG (NEG) Urine Test NEG (NEG) Troponin I < 0.015 ng/ml (0-0.045) Imaging MRI brain with and without- No acute intracranial abnormality. Stable pituitary prominence. TTE- The study was technically difficult but adequate for the referral indication. There is borderline concentric left ventricular hypertrophy. No regional wall motion abnormalities noted. The LV Ejection Fraction = 60-65%. The right ventricle is normal in size and function. There is no significant valvular heart disease. Impression 37 year old female s/p chest pain and increase in migraine symptoms. Plan 1. MRI with and without contrast no acute findings 2. eye exam as outpatient - no acute finding 3. past treatments with amitriptyline, nortriptyline, topamax, depakote, neurontin, propranolol, CCB, trigger point injections, botox 4. currently on atenolol, mg++, namenda, Zanaflex, zomig for breakthrough 5. [facility] neurology -[facility] [place] contacted recommended the following: prochlorperazine 10 mg injection preceded by Benadryl 25 mg. Would bolus with one liter normal saline. Also magnesium one gram and decadron. If no triptan within the last 24 hours would give subQ sumatriptan 6 mg or DHE after the antiemetic. will hold on this recommendations at this time. 6. Depakote 1500 mg over 30 minutes then in 8 hours give 500 mg over 15 min then every 8 hours for 24 hours- done by pharmacy order I have seen and discussed above patient with Dr Lia Dean, neurology Pt seen and examined, exam notable for congenital strabismus. Agree with depakote. Preg screen neg. KARSTEN Dean MD
[2018-01-17] MEDS ORDERED: VALPROATE SOD IV STA (16:23)
[2018-01-17] MEDS ORDERED: DEXTROSE 5% IV STA (16:23)
--- NOTE | 2018-01-17 19:39 | Progress Note ---
Internal Med Progress Note Date of Service: January 17, 2018. Provider Documentation: SUBJECTIVE: The patient was seen and examined in telemetry unit She was admitted with intractable headache likely secondary to migraine She also complained of some chest pain She has been ruled out for any stroke and/or ACS Still complains of some headache OBJECTIVE: Vital Signs-as noted below Exam: General-minimal distress at rest due to headache Eyes-normal, no eye deviation and no photophobia ENT-normal Neck-supple, no neck stiffness Lungs-clear Heart-normal Abdomen-normal Extremities-no edema Neuro-alert, awake and oriented 3 No focal sensory and/or motor deficit Lab data as noted below. ASSESSMENT & PLAN: Atypical chest pain Likely from anxiety EKG,ECHO and Serial Troponins are negative for any ACS Intractable migraine rule out brain tumor with recent change in usual description of chronic migraine symptoms. Scans have been negative No focal Neuro deficit Appreciate Neurology input Depakote started Hypertension, stable. History of gastroparesis. Mood/Anxiety DSO, symptoms at baseline and hx PCOS DVT prophylaxis. Lovenox subcu if no brain tumor on MRI. Full code. Vital Signs: Date Time Temp Pulse Resp B/P (MAP) Pulse Ox O2 Delivery O2 Flow Rate FiO2 01/17/18 19:31 36.8 74 16 120/74 (89) 92 Room Air 01/17/18 16:00 Room Air 01/17/18 15:09 36.8 73 18 117/82 (94) 96 Room Air 01/17/18 12:13 36.7 58 18 163/97 (119) 94 Room Air 01/17/18 12:00 94 Room Air 01/17/18 08:00 93 Room Air 01/17/18 07:19 36.7 60 16 130/79 (96) 93 Room Air 01/17/18 04:20 36.8 73 14 132/88 95 Room Air 01/17/18 03:05 78 18 138/99 98 Room Air 01/17/18 00:32 73 16 140/89 95 Room Air 01/17/18 00:20 79 01/16/18 22:56 83 18 125/80 97 Room Air 01/16/18 20:39 36.8 97 20 143/96 97 Room Air Lab Results: Results Past 24 Hours Test 01/16/18 21:38 01/17/18 02:01 01/17/18 03:00 01/17/18 08:06 Range/Units White Blood Count 8.42 4.8-10.8 K/uL Red Blood Count 4.23 4.2-5.4 M/uL Hemoglobin 12.5 12.0-16.0 g/dL Hematocrit 36.0 37-47 % Mean Corpuscular Volume 85.1 80-100 fL Mean Corpuscular Hemoglobin 29.6 25-34 pg Mean Corpuscular Hemoglobin Concent 34.7 32-36 g/dl Platelet Count 249 130-400 K/uL Mean Platelet Volume 9.8 7.4-10.4 fL Neutrophils (%) (Auto) 71.1 % Lymphocytes (%) (Auto) 20.8 % Monocytes (%) (Auto) 6.2 % Eosinophils (%) (Auto) 1.3 % Basophils (%) (Auto) 0.2 % Neutrophils # (Auto) 5.99 1.4-6.5 K/uL Lymphocytes # (Auto) 1.75 1.2-3.4 K/uL Monocytes # (Auto) 0.52 0.11-0.59 K/uL Eosinophils # (Auto) 0.11 0-0.5 K/uL Basophils # (Auto) 0.02 0-0.2 K/uL RDW Standard Deviation 41.0 36.4-46.3 fL RDW Coefficient of Variation 13.6 11.5-14.5 % Immature Granulocyte % (Auto) 0.4 % Immature Granulocyte # (Auto) 0.03 0.00-0.02 K/uL Sodium Level 140 136-145 mmol/L Potassium Level 3.8 3.5-5.1 mmol/L Chloride Level 107 98-107 mmol/L Carbon Dioxide Level 27 21-32 mmol/L Anion Gap 6.0 3-11 mmol/L Blood Urea Nitrogen 7 7-18 mg/dl Creatinine 1.01 0.60-1.20 mg/dl Est Creatinine Clear Calc Drug Dose 90.2 ml/min Estimated GFR () 82.4 Estimated GFR (Non- 71.1 BUN/Creatinine Ratio 7.3 10-20 Random Glucose 109 70-99 mg/dl Calcium Level 8.6 8.5-10.1 mg/dl Magnesium Level 2.2 1.8-2.4 mg/dl Total Bilirubin 0.4 0.2-1 mg/dl Aspartate Amino Transf (AST/SGOT) 31 15-37 U/L Alanine Aminotransferase (ALT/SGPT) 35 12-78 U/L Alkaline Phosphatase 82 45-117 U/L Troponin I < 0.015 < 0.015 0-0.045 ng/ml Total Protein 7.8 6.4-8.2 gm/dl Albumin 3.7 3.4-5.0 gm/dl Globulin 4.1 2.5-4.0 gm/dl Albumin/Globulin Ratio 0.9 0.9-2 Lipase 109 73-393 U/L Thyroid Stimulating Hormone (TSH) 7.680 0.300-4.500 uIu/ml Free Thyroxine 0.90 0.80-1.60 ng/dl Chemistry Specimen Hemolysis Activated Partial Thromboplast Time 27.6 21.0-31.0 SECONDS Partial Thromboplastin Ratio 1.1 D-Dimer 570 0-500 ug/L FEU Urine Color YELLOW Urine Appearance CLEAR CLEAR Urine pH 7.5 4.5-7.5 Urine Specific [place] 1.010 1.000-1.030 Urine Protein NEG NEG Urine Glucose (UA) NEG NEG Urine Ketones NEG NEG Urine Occult Blood NEG NEG Urine Nitrite NEG NEG Urine Bilirubin NEG NEG Urine Urobilinogen NEG NEG Urine Leukocyte Esterase NEG NEG Urine WBC (Auto) 0 0-5 /hpf Urine RBC (Auto) 0-4 0-4 /hpf Urine Hyaline Casts (Auto) 0 0-5 /lpf Urine Epithelial Cells (Auto) 0-5 0-5 /lpf Urine Bacteria (Auto) NEG NEG Urine Test NEG NEG
[2018-01-17] MEDS: DULOXETINE (CYMBALTA) 30 MG CAP PO SCH (20:12)
[2018-01-17] MEDS: TRAZODONE HCL 50 MG TAB PO SCH (20:12)
[2018-01-18] VITALS (8 sets, daily range): BP systolic 98–128; BP diastolic 64–82; PULSE 59–83; TEMP 36.6–36.9; O2SAT 94–97
[2018-01-18] MEDS: VALPROATE SOD IV 500 MG in DEXTROSE 5% 50ML 50 ML IV SCH ×2 (00:07→09:01)
[2018-01-18] MEDS: LEVOTHYROXINE 50 MCG TAB PO SCH (05:56)
[2018-01-18 06:30] LABS: BASO % 0.1 %; BASO ABS # 0.01 K/uL (0-0.2); EOS % 0.3 %; EOS ABS # 0.03 K/uL (0-0.5); HEMATOCRIT 34.7 % (37-47); HEMOGLOBIN 11.7 g/dL (12.0-16.0); IG# 0.05 K/uL (0.00-0.02); LYMPH % 19.8 %; LYMPH ABS # 2.31 K/uL (1.2-3.4); MEAN CELL VOLUME 85.5 fL (80-100); MEAN CORPUSCULAR HEMOGLOBIN 28.8 pg (25-34); MEAN CORPUSCULAR HGB CONC 33.7 g/dl (32-36); MEAN PLATELET VOLUME 9.4 fL (7.4-10.4); MONO ABS # 0.59 K/uL (0.11-0.59); NEUT % 74.4 %; PLATELET COUNT 240 K/uL (130-400); RED CELL DISTRIBUTION WIDTH CV 13.4 % (11.5-14.5); RED CELL DISTRIBUTION WIDTH SD 41.4 fL (36.4-46.3); WHITE BLOOD COUNT 11.69 K/uL (4.8-10.8)
[2018-01-18] MEDS: ENOXAPARIN 40 MG/0.4 ML SYR SC SCH (09:00)
[2018-01-18] MEDS: CEROVITE ADV FORMULA TAB PO SCH (09:20)
[2018-01-18] MEDS: FoLIC ACID TAB 400 MCG TAB PO SCH (09:20)
[2018-01-18] MEDS: PANTOprazole SOD 40 MG TAB PO SCH ×2 (09:20→22:08)
[2018-01-18] MEDS: MEMANTINE 10 MG TAB PO SCH ×2 (09:21→22:12)
[2018-01-18] MEDS: AMLODIPINE BESYLATE 5 MG TAB PO SCH (09:21)
[2018-01-18] MEDS: KETOROLAC TROMETHAMINE 30 MG/ML VIAL IV PRN (10:53)
--- NOTE | 2018-01-18 11:37 | PROGRESS NOTE ---
DATE: 01/18/2018 SUBJECTIVE: I am seeing Mrs. Everett in followup of status migrainosus of 1 month's duration. She received 1500 mg bolus of Depakote and has been continued on 500 t.i.d. The headache feels somewhat better this morning. On reviewing her medicines, it appears that she takes Zanaflex 8 mg at night and did not receive that last night. She asks if I will give her another dose of ketamine. OBJECTIVE: GENERAL: She is awake, alert, appearing in mild distress. VITAL SIGNS: Temperature 36.7, 59, 123/82, 96%. IMPRESSION: Status migrainosus. The patient has received Decadron, magnesium, Imitrex, prochlorperazine, Benadryl, fluids, Depakote. The headache has not broken but is somewhat improved. PLAN: My plan is to transition to oral Depakote 500 three times a day, increase the dose of Zanaflex and restart Zanaflex at 4 mg in the morning and 8 mg at night, monitoring for orthostasis. The Depakote should not be used fci in this patient as it has high risk of defects. The patient knows that she should not become . I have advised the patient to call Dr. Kwon on Saturday, and she can determine what they will next use prophylactically, perhaps that will be further increase in the tizanidine. I suspect that the Depakote will be used for the very short term. The patient is likely comfortable enough to be discharged today. I would see how she does over the next several hours. [facility]
--- NOTE | 2018-01-18 13:33 | Progress Note ---
Internal Med Progress Note Date of Service: January 18, 2018. Provider Documentation: SUBJECTIVE: The patient was seen and examined in telemetry unit She was admitted with intractable headache likely secondary to migraine She also complained of some chest pain She has been ruled out for any stroke and/or ACS Still complains of some headache 01/18 Has been on Depakote Headache is minimally improved OBJECTIVE: Vital Signs-as noted below Exam: General-minimal distress at rest due to headache Eyes-normal, no eye deviation and no photophobia ENT-normal Neck-supple, no neck stiffness Lungs-clear Heart-normal Abdomen-normal Extremities-no edema Neuro-alert, awake and oriented 3 No focal sensory and/or motor deficit Lab data as noted below. ASSESSMENT & PLAN: Atypical chest pain Likely from anxiety EKG,ECHO and Serial Troponins are negative for any ACS Intractable migraine rule out brain tumor with recent change in usual description of chronic migraine symptoms. Scans have been negative No focal Neuro deficit Appreciate Neurology input Depakote started Changed to Oral for Short term Zanaflex dose is adjusted Hypertension, stable. History of gastroparesis. Mood/Anxiety DSO, symptoms at baseline and hx PCOS DVT prophylaxis. Lovenox subcu if no brain tumor on MRI. Full code. Likely to be discharged in a day or two Vital Signs: Date Time Temp Pulse Resp B/P (MAP) Pulse Ox O2 Delivery O2 Flow Rate FiO2 01/18/18 12:00 36.6 69 16 128/64 (85) 97 Room Air 01/18/18 09:22 59 123/82 (96) 01/18/18 08:00 Room Air 01/18/18 07:08 36.7 66 18 110/73 (85) 96 Room Air 01/18/18 04:36 36.6 59 16 112/74 (87) 95 Room Air 01/18/18 04:00 Room Air 01/18/18 01:00 36.8 61 17 105/69 (81) 94 Room Air 01/18/18 00:00 Room Air 01/17/18 20:00 Room Air 01/17/18 19:31 36.8 74 16 120/74 (89) 92 Room Air 01/17/18 16:00 Room Air 01/17/18 15:09 36.8 73 18 117/82 (94) 96 Room Air Lab Results: Results Past 24 Hours Test 5/19/18 05:54 Range/Units White Blood Count 11.69 4.8-10.8 K/uL Red Blood Count 4.06 4.2-5.4 M/uL Hemoglobin 11.7 12.0-16.0 g/dL Hematocrit 34.7 37-47 % Mean Corpuscular Volume 85.5 80-100 fL Mean Corpuscular Hemoglobin 28.8 25-34 pg Mean Corpuscular Hemoglobin Concent 33.7 32-36 g/dl Platelet Count 240 130-400 K/uL Mean Platelet Volume 9.4 7.4-10.4 fL Neutrophils (%) (Auto) 74.4 % Lymphocytes (%) (Auto) 19.8 % Monocytes (%) (Auto) 5.0 % Eosinophils (%) (Auto) 0.3 % Basophils (%) (Auto) 0.1 % Neutrophils # (Auto) 8.70 1.4-6.5 K/uL Lymphocytes # (Auto) 2.31 1.2-3.4 K/uL Monocytes # (Auto) 0.59 0.11-0.59 K/uL Eosinophils # (Auto) 0.03 0-0.5 K/uL Basophils # (Auto) 0.01 0-0.2 K/uL RDW Standard Deviation 41.4 36.4-46.3 fL RDW Coefficient of Variation 13.4 11.5-14.5 % Immature Granulocyte % (Auto) 0.4 % Immature Granulocyte # (Auto) 0.05 0.00-0.02 K/uL
[2018-01-18] MEDS: DIVALPROEX SODIUM 500 MG DELAY RELEASE TAB PO SCH ×2 (13:38→22:07)
[2018-01-18] MEDS: DULOXETINE (CYMBALTA) 30 MG CAP PO SCH (22:11)
[2018-01-18] MEDS: TRAZODONE HCL 50 MG TAB PO SCH (22:12)
[2018-01-19 00:28] VITALS: BP 99/66; PULSE 61; TEMP 37; O2SAT 94
[2018-01-19 03:49] VITALS: BP 104/67; PULSE 60; TEMP 36.6; O2SAT 92
[2018-01-19] MEDS: LEVOTHYROXINE 50 MCG TAB PO SCH (06:29)
[2018-01-19 07:06] VITALS: BP 101/62; PULSE 58; TEMP 36.8; O2SAT 93
[2018-01-19] MEDS: FoLIC ACID TAB 400 MCG TAB PO SCH (07:49)
[2018-01-19] MEDS: PANTOprazole SOD 40 MG TAB PO SCH (07:49)
[2018-01-19] MEDS: CEROVITE ADV FORMULA TAB PO SCH (07:49)
[2018-01-19] MEDS: AMLODIPINE BESYLATE 5 MG TAB PO SCH (07:50)
[2018-01-19] MEDS: DIVALPROEX SODIUM 500 MG DELAY RELEASE TAB PO SCH ×2 (07:51→13:51)
[2018-01-19] MEDS: MEMANTINE 10 MG TAB PO SCH (07:51)
[2018-01-19] MEDS: ENOXAPARIN 40 MG/0.4 ML SYR SC SCH (07:52)
--- NOTE | 2018-01-19 11:02 | Progress Note ---
Internal Med Progress Note Date of Service: January 19, 2018. Provider Documentation: SUBJECTIVE: The patient was seen and examined in telemetry unit She was admitted with intractable headache likely secondary to migraine She also complained of some chest pain She has been ruled out for any stroke and/or ACS Still complains of some headache 01/18 Has been on Depakote Headache is minimally improved 01/19 Headache is much better this AM Ambulating well Wants to go home OBJECTIVE: Vital Signs-as noted below Exam: General-minimal distress at rest due to headache Eyes-normal, no eye deviation and no photophobia ENT-normal Neck-supple, no neck stiffness Lungs-clear Heart-normal Abdomen-normal Extremities-no edema Neuro-alert, awake and oriented 3 No focal sensory and/or motor deficit Lab data as noted below. ASSESSMENT & PLAN: Atypical chest pain Likely from anxiety EKG,ECHO and Serial Troponin are negative for any ACS Intractable migraine rule out brain tumor with recent change in usual description of chronic migraine symptoms. Scans have been negative No focal Neuro deficit Appreciate Neurology input Depakote started Changed to Oral for Short term Zanaflex dose is adjusted Headache is much better today Will discharge home Has Appointment with her Neurologist as an OP Hypertension, stable. History of gastroparesis. No acute issue Mood/Anxiety DSO, symptoms at baseline and hx PCOS Continue current medications DVT prophylaxis. Lovenox subcu if no brain tumor on MRI. Full code. Discharge this afternoon Vital Signs: Date Time Temp Pulse Resp B/P (MAP) Pulse Ox O2 Delivery O2 Flow Rate FiO2 01/19/18 08:00 Room Air 01/19/18 07:06 36.8 58 16 101/62 (75) 93 01/19/18 04:00 Room Air 01/19/18 03:49 36.6 60 17 104/67 (79) 92 Room Air 01/19/18 00:28 37.0 61 17 99/66 (77) 94 Room Air 01/19/18 00:00 Room Air 01/18/18 22:08 83 112/77 (89) 01/18/18 21:45 Room Air 01/18/18 19:22 36.8 66 16 98/65 (76) 94 Room Air 01/18/18 16:21 36.9 76 18 101/65 (77) 95 Room Air 01/18/18 16:00 Room Air 01/18/18 12:00 36.6 69 16 128/64 (85) 97 Room Air 01/18/18 12:00 Room Air
[2018-01-19 11:19] VITALS: BP 110/74; PULSE 59; TEMP 36.8; O2SAT 94
[2018-01-19] MEDS ORDERED: DPKEC500 PO (11:45)
--- NOTE | 2018-01-19 11:48 | Discharge Instructions ---
Discharge Instructions Date of Service January 19, 2018. Admission Reason for Admission: Chest Pain Discharge Discharge Diagnosis / Problem: Intractable Headache Discharge Goals Goal(s): Prevent Disease Progression Activity Recommendations Activity Limitations: resume your previous activity . Instructions / Follow-Up Instructions / Follow-Up Dr Mohr (dr Zhou is not available) on 01/22/18 9:25 AM.Please keep appointment with Your Neurologist. Current Hospital Diet Patient's current hospital diet: Regular Diet Discharge Diet Recommended Diet: Regular Diet Pending Studies Studies pending at discharge: no Medical Emergencies . Who to Call and When: Medical Emergencies: If at any time you feel your situation is an emergency, please call 911 immediately. . Non-Emergent Contact Non-Emergency issues call your: Primary Care Provider . Past History Medical & Surgical History: (1) Migraine without aura (2) Headache (3) Chest pain (4) Gastroesophageal reflux disease (5) Hypothyroidism (6) Polycystic ovaries (7) Depression (8) Chronic neck pain (9) H/O sinus surgery (10) S/P cholecystectomy . "Provider Documentation" section prepared by Marcella Barrera. .
--- NOTE | 2018-01-19 12:13 | PROGRESS NOTE ---
DATE: 01/19/2018 SUBJECTIVE: I am seeing Cassi in followup of status migrainosus. We reinstituted Zanaflex yesterday and placed her on Depakote 500 three times a day. She is feeling generally better, still with some mild residual headache. PHYSICAL EXAMINATION: VITAL SIGNS: 36.8, 59, 16, 110/74, 94%. IMPRESSION: Status migrainosus, doing better. I would discharge the patient today on Depakote 500 three times a day. Have her contact Dr. Bree De Los Santos regarding advice for further prophylaxis. We have increased the Zanaflex somewhat to 4 mg in the morning, 8 mg at night. She will have to make sure that she tolerates that. It can cause orthostasis, although it is not an entirely new drug to her and the patient understands quite well that the Depakote will be used very short term because of the increased risk of defects associated with this drug. [facility]TD[facility]
[2018-01-19 12:53] VITALS: BP 110/74; PULSE 59; TEMP 36.8; O2SAT 94
--- NOTE | 2018-01-19 15:42 | Discharge Summary ---
Discharge Summary Date of Service January 19, 2018. Discharge Summary Admission Date: January 17, 2018 at 02:51 Discharge Date: January 19, 2018 Discharge Disposition: Home Principal Diagnosis: Intractable Headache Secondary Diagnoses/Problems: Please see H&P and Hospital progress note Consultations: Neurology Medication Reconciliation New Medications: Divalproex Sodium (Divalproex Sodium Dr) 500 Mg Tabec 500 MG PO TID for 10 Days, #30 TAB Continued Medications: Amlodipine (Norvasc) 5 Mg Tab 5 MG PO DAILY, TAB Atenolol (Tenormin) 25 Mg Tab 25 MG PO QPM, TAB Baclofen (Baclofen) 20 Mg Tab 20 MG PO TID PRN for Muscle Spasms Beclomethasone Dip (Qvar) 80 Mcg/Act Aer 2 PUFFS INH BID PRN for SOB/Wheezing Benzocaine-Menthol (Mouth-Thro (Cepacol Sore Throat) 1 Antonia Antonia 1 ANTONIA PO TID PRN for SORE THROAT Buspirone HCl (Buspirone HCl) 5 Mg Tab 5-10 MG PO TID PRN for Anxiety, #20 Clonidine Hcl (Catapres) 0.1 Mg Tab 1 TAB PO BID PRN for BP SPIKES Diclofenac (Voltaren) 50 Mg Tabec 50 MG PO TID, TAB STARTED 01/09/18 FOR 10 DAYS. Duloxetine HCl (Duloxetine HCl) 30 Mg Cap 90 MG PO HS Ergocalciferol (Vitamin D 55099 Unit) 50,000 Unit Cap 1 TAB PO WK, CAP TAKE ON SATURDAY Fish Oil ([place]-3) 1 Ea Cap 1 CAP PO DAILY Fluticasone Propionate (Nasal) (Flonase Allergy Relief) 50 Mcg/Act Spr 2 SPRAY YARELY BID PRN for Folic Acid (Folvite) 400 Mcg Tab 400 MCG PO DAILY Hydroxyzine HCl (Hydroxyzine HCl) 25 Mg Tab 25 MG PO TID PRN for with baclofen Levothyroxine Sodium (Levothyroxine Sodium) 50 Mcg Tab 50 MCG PO DAILY Magnesium Gluconate (Magnesium Gluconate) 250 Mg Tab 125 MG PO BID Memantine (Namenda) 10 Mg Tab 10 MG PO BID, TAB Metformin HCl (Metformin HCl) 500 Mg Tab 500 MG PO BIDM Multivitamins/Minerals (Mvi With Minerals) Tab 1 TAB PO DAILY, TAB Pantoprazole (Protonix) 40 Mg Tab 40 MG PO BID Potassium Chloride Microencaps (Potassium Chloride Er) 20 Meq Tab 20 MEQ PO HS Promethazine (Phenergan Suppository) 25 Mg Supp 25 MG [place] Q6H PRN for Nausea Promethazine HCl (Promethazine HCl) 25 Mg Tab 25 MG PO HS PRN for Nausea or Migraine TAKE IF UNABLE TO SLEEP FROM NAUSEA/MIGRAINE Tizanidine (Tizanidine HCl) 4 Mg Tab 4-8 MG PO HS Trazodone Hcl (Trazodone) 50 Mg Tab 50 MG PO HS Zolmitriptan (Zolmitriptan) 5 Mg Tab 2.5-5 MG PO UD PRN for Migraine, #8 TAKE BID/24 HOURS, NO MORE THAN 4 TABS IN ONE WEEK. Admission Information HPI (per Admitting provider): DATE OF ADMISSION: 01/17/2018 PRIMARY CARE DOCTOR: Dr. Zhou. CHIEF COMPLAINT: Headache. HISTORY OF PRESENT ILLNESS: History is obtained from the patient and records. Medical history significant for chronic migraine on Namenda, mood disorder, polycystic ovaries syndrome, hypothyroidism, gastroparesis. Recent confinement last 09/2016 for gastroparesis flareup. As per the patient, she's had migraine headaches since teenage years. Seen at [facility], last March 2017. Headaches attributed to chronic migraine w/ occipital neuralgia. Namenda started. The patient told to continue atenolol, magnesium, Cymbalta; Zomig for abortive therapy -not working as per the patient. Some improvement of headache with Namenda. Last few months more migraines, more constant, not a day without it, just increased in intensity, usually right-sided headache with photophobia. Migraine worse with noise. Some improvement with patient isolating herself in a dark room. Last 3 days, constant, worsening migraine, worsening tinnitus, new blurred vision of the right eye. Patient also complaining of substernal tightness, nonpleuritic, nonradiating, no shortness of breath. Usual abdominal discomfort from gastroparesis, Intractable headache symptoms at the ER despite ketamine, diphenhydramine, Reglan, Decadron, and Ativan administration. MEDICAL HISTORY: As above. mood disorder. SURGERIES: Cholecystectomy, sinus surgery. HOME MEDICATIONS: Include Norvasc, atenolol, Cepacol, Qvar, buspirone, Catapres, Voltaren, duloxetine, vitamin D, Folvite, fish oil, Flonase, hydroxyzine, levothyroxine, magnesium, Namenda, metformin for PCOS, multivitamins, Klor-Con, Protonix, promethazine, tizanidine, trazodone, Zolmitriptan. ALLERGIES: KEFLEX, MORPHINE, TOPAMAX. FAMILY HISTORY: Diabetes, heart disease. PERSONAL AND SOCIAL HISTORY: nonsmoker, no chronic ETOH intake, unemployed. REVIEW OF SYSTEMS: As per HPI, all 10 systems reviewed. All other ROS negative. PHYSICAL EXAMINATION: VITAL SIGNS: Blood pressure was noted to be 125/80, pulse rate 18, temperature 36.8, sats 97% on room air. GENERAL: Noted to be uncomfortable, obese, no distress. SKIN: Normal color, warm. HEENT: [place] palpebral conjunctivae. No ptosis. Dry mucosa. NECK: Short neck, supple. CHEST: Clear to auscultation. No tenderness. HEART: Regular rate and rhythm. No murmur. ABDOMEN: Some distention. Usual tenderness on light palpation. EXTREMITIES: Minimal edema. NEUROLOGIC: Coherent. No gross focality. No facial asymmetry. LABORATORY DATA: Hemoglobin 12.5, hematocrit 36, white cells 8.42, platelets 249. Sodium 140, potassium 3.8, chloride 107, BUN 7, creatinine 1, glucose 109. LFTs, lipase normal. D-dimer was abnormal. Chest x-ray, no acute process. EKG as per my interpretation, low voltage, no ischemia. CT chest initial read, no PE. ASSESSMENT: 1. Atypical chest pain likely from anxiety 2. intractable migraine rule out brain tumor with recent change in usual description of chronic migraine symptoms. 2. Hypertension, stable. 4. History of gastroparesis. 5. Mood/Anxiety DSO, symptoms at baseline 6. hx PCOS PLAN: Observation PCU 2D echo RE chest pain Anxiolytic as needed Brain MRI RE change in migraine headache description Analgesia, judicious narcotic use Neurology consult RE intractable migraine DVT prophylaxis. Lovenox subcu if no brain tumor on MRI. Full code. Hospital Course Atypical chest pain Likely from anxiety EKG,ECHO and Serial Troponin are negative for any ACS Intractable migraine rule out brain tumor with recent change in usual description of chronic migraine symptoms. Scans have been negative No focal Neuro deficit Appreciate Neurology input Depakote started Changed to Oral for Short term Zanaflex dose is adjusted Headache is much better today Will discharge home Has Appointment with her Neurologist as an OP Hypertension, stable. History of gastroparesis. No acute issue Mood/Anxiety DSO, symptoms at baseline and hx PCOS Continue current medications DVT prophylaxis. Lovenox subcu if no brain tumor on MRI. Full code. Discharge this afternoon Total time spent on discharge = 35 minutes This includes examination of the patient, discharge planning, medication reconciliation, and communication with other providers. Discharge Instructions Date of Service January 19, 2018. Admission Reason for Admission: Chest Pain Discharge Discharge Diagnosis / Problem: Intractable Headache Discharge Goals Goal(s): Prevent Disease Progression Activity Recommendations Activity Limitations: resume your previous activity . Instructions / Follow-Up Instructions / Follow-Up Dr Mohr (dr Zhou is not available) on 01/22/18 9:25 AM.Please keep appointment with Your Neurologist. Current Hospital Diet Patient's current hospital diet: Regular Diet Discharge Diet Recommended Diet: Regular Diet Pending Studies Studies pending at discharge: no Medical Emergencies . Who to Call and When: Medical Emergencies: If at any time you feel your situation is an emergency, please call 911 immediately. . Non-Emergent Contact Non-Emergency issues call your: Primary Care Provider . Past History Medical & Surgical History: (1) Migraine without aura (2) Headache (3) Chest pain (4) Gastroesophageal reflux disease (5) Hypothyroidism (6) Polycystic ovaries (7) Depression (8) Chronic neck pain (9) H/O sinus surgery (10) S/P cholecystectomy . "Provider Documentation" section prepared by Marcella Barrera. . <Electronically signed by Marcella Barrera M.D.> Signed: 01/19/18 4415 Additional Copies To Melania Zhou D.O.
== END 2018-01-19 14:20 | disposition home or self-care (01) ==
LOC: C.EDB 20:26 → C.MED 01-17 02:51 → ENRESERV 01-17 03:17
PROVIDERS: ADMIT Internal Medicine; ATTEND Internal Medicine
DX: G43.909 Migraine, unspecified, not intractable, without status migrainosus (principal); R07.89 Other chest pain; I10 Essential (primary) hypertension; F39 Unspecified mood [affective] disorder; F41.9 Anxiety disorder, unspecified; K21.9 Gastro-esophageal reflux disease without esophagitis; E03.9 Hypothyroidism, unspecified; E28.2 Polycystic ovarian syndrome; Z88.1 Allergy status to other antibiotic agents; Z88.5 Allergy status to narcotic agent; Z88.8 Allergy status to other drugs, medicaments and biological substances

== ENCOUNTER 2018-04-13 21:12 | Emergency (ER) | payer OTHER ==
[~2018-04-13] VITALS: Ht 167.6 cm; Wt 98.4 kg
[~2018-04-13 21:12] MED LIST changes: -AMLO-110 PO; +AMLO5TAB3 PO; -ATEN-173 PO; +BECL80AE7 INH; -BENZ1LOZ24 PO; -CLON0.1T12 PO; -ERGO500011 PO; -FOLI400T41 PO; -LRS20 PO; -MAGN250T11 PO; -NMN10 PO; -PANT40TA PO; -POTA20TA13 PO; -PROM1SUP19 PR; -QVRINH80 INH; -TRAZ50TA35 PO; -ZNF/4 PO; -ZOLM1TAB11 PO
[2018-04-13 21:15] VITALS: TEMP 36.9; Ht 167.6 cm; Wt 98.4 kg
[2018-04-13] MEDS ORDERED: ZNF/4 PO (21:19)
[2018-04-13] MEDS ORDERED: FOLI400T41 PO (21:19)
[2018-04-13] MEDS ORDERED: PROM1SUP19 PR (21:25)
[2018-04-13] MEDS ORDERED: TRAZ50TA35 PO (21:33)
[2018-04-13] MEDS ORDERED: SODIUM CHLORIDE 0.9% 1000ML 1,000 ML IV STA (21:36)
[2018-04-13] MEDS ORDERED: KETOROLAC TROMETHAMINE 30 MG/ML VIAL IV STA (21:36)
[2018-04-13] MEDS ORDERED: ONDANSETRON INJ 2 MG/ML 2 ML VIAL IV STA (21:36)
[2018-04-13] MEDS ORDERED: HYDROmorphone INJ 1 MG/ML SYR IV STA (21:36)
--- NOTE | 2018-04-13 21:40 | EMERGENCY ROOM VISIT NOTE ---
History Report prepared by Dion: David Delatorre Under the Supervision of: Dr. Mata Blackburn M.D. First contact with patient: 21:18 Chief Complaint: FLANK PAIN Stated Complaint: PAIN RIGHT SIDE VOMITING History of Present Illness The patient is a 37 year old female who presents to the Emergency Room with complaints of right side abdominal/flank pain that she has been experiencing "off and on" for the past couple of weeks. She also complains of nausea. The patient has visited with her primary care office and was treated for a UTI. At her PCP office she also had a CT scan performed which showed an ovarian cyst on the left. The patient also went to the weekend clinic at [facility] this weekend and was given another antibiotic to try.She has not filled this antibiotic as she fears it may interact with another medication of hers. The patient denies any chance of a retained tampon or the possibility of a UTI. She does not deny a chance of . Source of History: patient Onset: Past couple of weeks. Position: abdomen, back (Right flank) Timing: intermittent ("off and on" ) Associated Symptoms: + nausea Review of Systems See HPI for pertinent positives & negatives. A total of 10 systems reviewed and were otherwise negative. Past Medical & Surgical Medical Problems: (1) Chronic chest pain (2) Chronic neck pain (3) Depression (4) Gastroesophageal reflux disease (5) Hypothyroidism (6) Migraine (7) Migraine without aura (8) Partial small bowel obstruction (9) Polycystic ovaries (10) Right ovarian cyst Surgical Problems: (1) H/O sinus surgery (2) S/P cholecystectomy Family History Cancer Diabetes mellitus FHx: alcoholism Heart disease Hypertension Social History Smoking Status: Never Smoker Alcohol Use: none Drug Use: none Marital Status: single, in relationship Housing Status: lives with family Occupation Status: unemployed Current/Historical Medications Scheduled Amlodipine (Norvasc), 5 MG PO DAILY Atenolol (Atenolol), 25 MG PO DAILY Baclofen (Baclofen), 20 MG PO DAILY Docusate Sodium (Colace), 1 CAP PO BID Duloxetine HCl (Duloxetine HCl), 90 MG PO HS Ergocalciferol (Vitamin D 88773 Unit), 50,000 INTER.UNIT PO WK Fish Oil ([place]-3), 1 CAP PO DAILY Folic Acid (Folvite), 400 MCG PO DAILY Hydroxyzine HCl (Hydroxyzine HCl), 25 MG PO DAILY Levothyroxine Sodium (Levothyroxine Sodium), 50 MCG PO DAILY Magnesium Oxide (Mg Supplement (Magnesium), 125 MG PO DAILY Memantine HCl (Memantine HCl), 10 MG PO BID Metformin HCl (Metformin HCl), 500 MG PO BIDM Multivitamins/Minerals (Mvi With Minerals), 1 TAB PO DAILY Pantoprazole (Pantoprazole Sodium), 40 MG PO BID Potassium Chloride Microencaps (Potassium Chloride Er), 10 MEQ PO DAILY Sennosides (Senokot), 8.6 MG PO HS Tizanidine (Tizanidine HCl), 4-8 MG PO HS Trazodone Hcl (Trazodone), 50 MG PO HS Scheduled PRN Albuterol Hfa (Ventolin Hfa), 2 PUFFS INH Q6H PRN for SOB/Wheezing Beclomethasone Dip (Qvar), 2 PUFFS INH BID PRN for SOB/Wheezing Buspirone HCl (Buspirone HCl), 5-10 MG PO BID PRN for Anxiety Clonidine Hcl (Catapres), 0.1 MG PO BID PRN for Hypertension Fluticasone Propionate (Nasal) (Flonase Allergy Relief), 2 SPRAYS YARELY BID PRN for Furosemide (Lasix), 20 MG PO BID PRN for Fluid Retention Oxycodone/Acetaminophen 5MG/325MG (Percocet 5MG/325MG), 1-2 TAB PO Q4H PRN for Pain Promethazine (Phenergan Suppository), 25 MG NE Q6H PRN for Nausea Promethazine HCl (Promethazine HCl), 25 MG PO Q6H PRN for Nausea or Migraine Zolmitriptan (Zolmitriptan), 2.5-5 MG PO UD PRN for Migraine Allergies Coded Allergies: Morphine (Verified Allergy, Severe, HIVES/ITCHING, N&V, 03/23/18) Topiramate (Verified Allergy, Severe, neurological symptoms, 03/23/18) Cephalexin (Verified Allergy, Mild, rash, 03/23/18) Physical Exam Vital Signs Date Time Temp Pulse Resp B/P (MAP) Pulse Ox O2 Delivery O2 Flow Rate FiO2 04/13/18 23:42 103 17 111/89 96 04/13/18 23:14 106 20 128/92 97 Room Air 04/13/18 22:31 111 04/13/18 21:15 36.9 131 18 152/95 96 Room Air Physical Exam GENERAL: Awake, alert, well-appearing, in no acute distress HENT: Normocephalic, atraumatic. Oropharynx unremarkable. EYES: Normal conjunctiva. Sclera non-icteric. NECK: Supple. No nuchal rigidity. FROM. No JVD. RESPIRATORY: Clear to auscultation. CARDIAC: Regular rate, normal rhythm. Extremities warm and well perfused. Pulses equal. ABDOMEN: Soft, non-distended. No tenderness to palpation. No rebound or guarding. No masses. RECTAL: Deferred. MUSCULOSKELETAL: Chest examination reveals no tenderness. The back is symmetrical on inspection without obvious abnormality. There is no CVA tenderness to palpation. No joint edema. LOWER EXTREMITIES: Calves are equal size bilaterally and non-tender. No edema. No discoloration. NEURO: Normal sensorium. No sensory or motor deficits noted. SKIN: No rash or jaundice noted. Medical Decision & Procedures ER Provider Diagnostic Interpretation: Radiology results as stated below per my review and radiologist interpretation: ABDOMINAL ULTRASOUND, RIGHT UPPER QUADRANT HISTORY: Right upper quadrant abdominal pain. COMPARISON: CT of the abdomen and pelvis March 23, 2018. FINDINGS: Increased hepatic echogenicity suggests fatty infiltration. No hepatic lesions are identified. Minimal dilatation of the common bile duct is noted status post cholecystectomy. The common bile duct measures 7 mm in caliber. No common bile duct calculi are identified. The pancreatic body is normal. The head and tail are obscured. There is no right hydronephrosis. IMPRESSION: 1. Borderline dilatation of the common bile duct. This is likely related to previous cholecystectomy however could be correlated obstructive liver function tests. 2. Fatty liver. Electronically signed by: Kush White M.D. 04/13/2018 11:00 PM Dictated Date/Time: 04/13/2018 10:57 PM KUB CLINICAL HISTORY: Right flank pain. COMPARISON STUDY: CT of the abdomen and pelvis March 23, 2018. FINDINGS: Pelvic calcifications reflect phleboliths. No urinary calculi are identified. There are cholecystectomy clips. Bowel gas pattern is normal. IMPRESSION: 1. No evidence of a bowel obstruction. 2. No urinary calculi identified. Electronically signed by: Kush White M.D. 04/13/2018 11:05 PM Dictated Date/Time: 04/13/2018 11:04 PM Laboratory Results 04/13/18 22:08 Red Blood Count 4.09, Mean Corpuscular Volume 89.5, Mean Corpuscular Hemoglobin 29.6, Mean Corpuscular Hemoglobin Concent 33.1, Mean Platelet Volume 9.4, Neutrophils (%) (Auto) 66.6, Lymphocytes (%) (Auto) 26.4, Monocytes (%) (Auto) 5.2, Eosinophils (%) (Auto) 1.2, Basophils (%) (Auto) 0.4, Neutrophils # (Auto) 5.35, Lymphocytes # (Auto) 2.12, Monocytes # (Auto) 0.42, Eosinophils # (Auto) 0.10, Basophils # (Auto) 0.03 04/13/18 22:08 Test 04/13/18 22:08 White Blood Count 8.04 K/uL (4.8-10.8) Red Blood Count 4.09 M/uL (4.2-5.4) Hemoglobin 12.1 g/dL (12.0-16.0) Hematocrit 36.6 % (37-47) Mean Corpuscular Volume 89.5 fL (80-100) Mean Corpuscular Hemoglobin 29.6 pg (25-34) Mean Corpuscular Hemoglobin Concent 33.1 g/dl (32-36) Platelet Count 239 K/uL (130-400) Mean Platelet Volume 9.4 fL (7.4-10.4) Neutrophils (%) (Auto) 66.6 % Lymphocytes (%) (Auto) 26.4 % Monocytes (%) (Auto) 5.2 % Eosinophils (%) (Auto) 1.2 % Basophils (%) (Auto) 0.4 % Neutrophils # (Auto) 5.35 K/uL (1.4-6.5) Lymphocytes # (Auto) 2.12 K/uL (1.2-3.4) Monocytes # (Auto) 0.42 K/uL (0.11-0.59) Eosinophils # (Auto) 0.10 K/uL (0-0.5) Basophils # (Auto) 0.03 K/uL (0-0.2) RDW Standard Deviation 44.6 fL (36.4-46.3) RDW Coefficient of Variation 13.7 % (11.5-14.5) Immature Granulocyte % (Auto) 0.2 % Immature Granulocyte # (Auto) 0.02 K/uL (0.00-0.02) Urine Color YELLOW Urine Appearance CLEAR (CLEAR) Urine pH 6.5 (4.5-7.5) Urine Specific [place] 1.020 (1.000-1.030) Urine Protein NEG (NEG) Urine Glucose (UA) NEG (NEG) Urine Ketones NEG (NEG) Urine Occult Blood NEG (NEG) Urine Nitrite NEG (NEG) Urine Bilirubin NEG (NEG) Urine Urobilinogen NEG (NEG) Urine Leukocyte Esterase NEG (NEG) Urine Test NEG (NEG) Anion Gap 10.0 mmol/L (3-11) Est Creatinine Clear Calc Drug Dose 113.9 ml/min Estimated GFR () 109.2 Estimated GFR (Non- 94.2 BUN/Creatinine Ratio 11.8 (10-20) Calcium Level 9.3 mg/dl (8.5-10.1) Total Bilirubin 0.2 mg/dl (0.2-1) Direct Bilirubin < 0.1 mg/dl (0-0.2) Aspartate Amino Transf (AST/SGOT) 13 U/L (15-37) Alanine Aminotransferase (ALT/SGPT) 21 U/L (12-78) Alkaline Phosphatase 100 U/L (45-117) Total Protein 7.4 gm/dl (6.4-8.2) Albumin 3.7 gm/dl (3.4-5.0) Lipase 157 U/L (73-393) Labs reviewed by ED physician. Medications Administered Medications (Trade) Dose Ordered Sig/Jean Claude Route Start Time Stop Time Status Last Admin Dose Admin Ketorolac Tromethamine (Toradol Inj) 30 mg NOW STAT IV 04/13/18 21:36 04/13/18 21:38 DC 04/13/18 22:20 30 MG Hydromorphone HCl (Dilaudid Inj) 1 mg NOW STAT IV 04/13/18 21:36 04/13/18 21:38 DC 04/13/18 22:20 1 MG Ondansetron HCl (Zofran Inj) 4 mg NOW STAT IV 04/13/18 21:36 04/13/18 21:38 DC 04/13/18 22:20 4 MG Sodium Chloride 1,000 ml @ 999 mls/hr Q1H1M STAT IV 04/13/18 21:36 04/13/18 22:36 DC 04/13/18 22:19 999 MLS/HR Oxycodone/ Acetaminophen (Percocet 5/ 325MG Home Pack) 1 homepack UD STAT PO 04/13/18 23:21 04/13/18 23:23 DC 04/13/18 23:39 1 HOMEPACK Magnesium Citrate (Citrate Of Magnesia Soln) 296 ml NOW STAT PO 04/13/18 23:21 04/13/18 23:23 DC 04/13/18 23:38 296 ML ED Course 1: Past medical records reviewed. The patient was evaluated in room B6. A complete history and physical examination was performed. 2340: Upon reexamination the patient is resting in bed. I discussed results and treatment plan with the patient. She verbalizes agreement and understanding. The patient is ready for discharge. Medical Decision Prior records/ancillary studies reviewed. Triage Nursing notes reviewed. Differential diagnosis: Etiologies such as appendicitis, diverticulitis, PUD, biliary pathology, UTI, pancreatitis, obstruction, mesenteric ischemia, aortic pathology, infections, inflammatory bowel disease, renal colic, as well as others were entertained. This is a 37-year-old female who presents emergency department complaining of right-sided flank pain. Serial abdominal examinations were performed on the patient in the emergency department and at no time to the patient exhibited surgical abdomen. In addition the patient also really does not exhibit abdominal tenderness. She also recently had a CAT scan and does not have an elevation in her white blood cell count. She is also afebrile and is not . Based on these findings and using shared medical decision making with the patient the decision was made to obtain a KUB as well as a right upper quadrant ultrasound. These were both found to be noncontributory. I do feel that the patient is constipated and recommend magnesium [facility]-[employer] cleanout. She was given Percocet for the pain. She received Toradol and Dilaudid here in the emergency department. Repeat examination revealed improvement the patient' s symptoms. I do feel that the patient is well enough to be discharged home for follow-up with a primary care physician. Patient was in agreement with the treatment plan. Medication Reconcilliation Current Medication List: was personally reviewed by me Blood Pressure Screening Patient's blood pressure: Elevated blood pressure Blood pressure disposition: Elevated BP felt to be situational Impression Primary Impression: Right flank pain Scribe Attestation The scribe's documentation has been prepared under my direction and personally reviewed by me in its entirety. I confirm that the note above accurately reflects all work, treatment, procedures, and medical decision making performed by me. Departure Information Dispostion Home / Self-Care Prescriptions Docusate Sodium (COLACE) 100 Mg Cap 1 CAP PO BID for 15 Days, #30 CAP Prov: Mata Blackburn MD 04/13/18 Sennosides (SENOKOT) 8.6 Mg Tab 8.6 MG PO HS for 30 Days, #30 TAB Prov: Mata Blackburn MD 04/13/18 Oxycodone/Acetaminophen 5MG/325MG (PERCOCET 5MG/325MG) Tab 1-2 TAB PO Q4H Y for Pain, #14 TAB Prov: Mata Blackburn MD 04/13/18 Referrals Melania Zhou D.O. (PCP) Forms HOME CARE DOCUMENTATION FORM, IMPORTANT VISIT INFORMATION Patient Instructions [facility] Additional Instructions Take 1/2 bottle Mag Citrate Repeat second half in six hours Clear liquid diet next 48 hours Take 5 ml Maalox before every meal and at bedtime You received narcotic or benzodiazepene medication while in the emergency room today. This is an addictive medication that may cause drowziness as well as constipation. Do not drive, operate heavy machinery, or drink alcohol under the influence of this medication. Take 600 mg Ibuprofen every 6 hours Take Percocet for breakthrough pain You have been examined and treated today on an emergency basis only. This is not a substitute for, or an effort to provide, complete comprehensive medical care. It is impossible to recognize and treat all injuries or illnesses in a single emergency department visit. It is therefore important that you follow up closely with Dr Zhou. Call as soon as possible for an appointment. Thank you for your time and consideration. I look forward to speaking with you again soon. Please don't hesitate to call us if you have any questions.
[2018-04-13] MEDS ORDERED: POTA10TA32 PO (21:45)
[2018-04-13] MEDS ORDERED: MEMA1TAB4 PO (21:45)
[2018-04-13] MEDS ORDERED: CTP1CL PO (21:45)
[2018-04-13] MEDS ORDERED: PANT40TA2 PO (21:45)
[2018-04-13] MEDS ORDERED: TNR25 PO (21:45)
[2018-04-13] MEDS ORDERED: MAGN500T4 PO (21:52)
[2018-04-13] MEDS ORDERED: FURO-85 PO (21:54)
[2018-04-13] MEDS ORDERED: VNTHFA/IN INH (21:54)
[2018-04-13] MEDS ORDERED: LRS20 PO (22:09)
[2018-04-13] MEDS ORDERED: ZOLM1TAB11 PO (22:10)
[2018-04-13 22:20] LABS: BASO % 0.4 %; BASO ABS # 0.03 K/uL (0-0.2); EOS % 1.2 %; HEMATOCRIT 36.6 % (37-47); HEMOGLOBIN 12.1 g/dL (12.0-16.0); IG# 0.02 K/uL (0.00-0.02); LYMPH % 26.4 %; LYMPH ABS # 2.12 K/uL (1.2-3.4); MEAN CELL VOLUME 89.5 fL (80-100); MEAN CORPUSCULAR HEMOGLOBIN 29.6 pg (25-34); MEAN CORPUSCULAR HGB CONC 33.1 g/dl (32-36); MEAN PLATELET VOLUME 9.4 fL (7.4-10.4); MONO % 5.2 %; MONO ABS # 0.42 K/uL (0.11-0.59); NEUT % 66.6 %; NEUT ABS # 5.35 K/uL (1.4-6.5); PLATELET COUNT 239 K/uL (130-400); RED CELL DISTRIBUTION WIDTH CV 13.7 % (11.5-14.5); RED CELL DISTRIBUTION WIDTH SD 44.6 fL (36.4-46.3); WHITE BLOOD COUNT 8.04 K/uL (4.8-10.8)
[2018-04-13] MEDS ORDERED: ERGO500011 PO (22:40)
[2018-04-13 22:52] LABS: ALBUMIN 3.7 gm/dl (3.4-5.0); ALKALINE PHOSPHATASE 100 U/L (45-117); ALT/SGPT 21 U/L (12-78); AST/SGOT 13 U/L (15-37); BLOOD UREA NITROGEN 9 mg/dl (7-18); CALCIUM 9.3 mg/dl (8.5-10.1); CARBON DIOXIDE 23 mmol/L (21-32); GLUCOSE 150 mg/dl (70-99); LIPASE 157 U/L (73-393); POTASSIUM 3.7 mmol/L (3.5-5.1); SODIUM 140 mmol/L (136-145); TOTAL PROTEIN 7.4 gm/dl (6.4-8.2)
--- NOTE | 2018-04-13 23:01 | DIAGNOSTIC IMAGING REPORT ---
ABDOMINAL ULTRASOUND, RIGHT UPPER QUADRANT HISTORY: Right upper quadrant abdominal pain. COMPARISON: CT of the abdomen and pelvis March 23, 2018. FINDINGS: Increased hepatic echogenicity suggests fatty infiltration. No hepatic lesions are identified. Minimal dilatation of the common bile duct is noted status post cholecystectomy. The common bile duct measures 7 mm in caliber. No common bile duct calculi are identified. The pancreatic body is normal. The head and tail are obscured. There is no right hydronephrosis. IMPRESSION: 1. Borderline dilatation of the common bile duct. This is likely related to previous cholecystectomy however could be correlated obstructive liver function tests. 2. Fatty liver. Electronically signed by: Kush White M.D. 04/13/2018 11:00 PM Dictated Date/Time: 04/13/2018 10:57 PM
--- NOTE | 2018-04-13 23:06 | DIAGNOSTIC IMAGING REPORT ---
KUB CLINICAL HISTORY: Right flank pain. COMPARISON STUDY: CT of the abdomen and pelvis March 23, 2018. FINDINGS: Pelvic calcifications reflect phleboliths. No urinary calculi are identified. There are cholecystectomy clips. Bowel gas pattern is normal. IMPRESSION: 1. No evidence of a bowel obstruction. 2. No urinary calculi identified. Electronically signed by: Kush White M.D. 04/13/2018 11:05 PM Dictated Date/Time: 04/13/2018 11:04 PM
[2018-04-13] MEDS ORDERED: PERCOCET HOME PACK PO STA (23:21)
[2018-04-13] MEDS ORDERED: MAGNESIUM CITRATE 296 ML/BTL PO STA (23:21)
[2018-04-13] MEDS ORDERED: DOCU-94 PO (23:30)
[2018-04-13] MEDS ORDERED: SENN1TAB77 PO (23:30)
[2018-04-13] MEDS ORDERED: OXYC-57 PO (23:30)
[2018-04-13 23:42] VITALS: BP 111/89; PULSE 103; O2SAT 96
== END 2018-04-13 23:40 | disposition home or self-care (01) ==
LOC: C.EDB 21:13
DX: R10.11 Right upper quadrant pain (principal); R10.31 Right lower quadrant pain; K59.00 Constipation, unspecified; E28.2 Polycystic ovarian syndrome; E03.9 Hypothyroidism, unspecified; Z79.84 Long term (current) use of oral hypoglycemic drugs; Z79.899 Other long term (current) drug therapy; Z88.1 Allergy status to other antibiotic agents; Z88.5 Allergy status to narcotic agent; Z88.8 Allergy status to other drugs, medicaments and biological substances

== ENCOUNTER 2019-08-06 19:55 | Inpatient (IN) ==
[2019-08-06] MEDS ORDERED: VANCOMYCIN HCL 1,000 MG/270 ML BAG IV STA (20:55)
[2019-08-06] MEDS ORDERED: VANCOMYCIN CONSULT ACTIVE PRN (20:55)
[2019-08-06] MEDS ORDERED: LEVOFLOXACIN/D5W 750 MG/150 ML BAG IV STA (20:55)
[2019-08-06] MEDS ORDERED: PIPERACILLIN/TAZOBACTAM 4.5 GM/120 ML BAG IV ONE (20:55)
[2019-08-06] MEDS ORDERED: PIPERACILL/TAZOBAC CONSULT ACTIVE PRN (20:55)
[2019-08-06 21:36] LABS: Basophils # (auto) 0.01 K/uL (0-0.2); Basophils % (auto) 0.1 %; Eosinophils % (auto) 1.6 %; Hematocrit (blood only) 38.3 % (37-47); Hemoglobin 12.6 g/dL (12.0-16.0); Immature Granulocytes # (auto) 0.07 K/uL (0.00-0.02); Immature Granulocytes % (auto) 0.6 %; Lymphocytes % (auto) 20.4 %; Mean Corpuscular Hemoglobin 29.3 pg (25-34); Mean Corpuscular Hgb Conc 32.9 g/dL (32-36); Mean Corpuscular Volume 89.1 fL (80-100); Mean Platelet Volume 8.8 fL (7.4-10.4); Monocytes # (auto) 0.89 K/uL (0.11-0.59); Monocytes % (auto) 7.3 %; Neutrophils # (auto) 8.59 K/uL (1.4-6.5); Platelet Count 260 K/uL (130-400); RDW Coefficient of Variation 14.6 % (11.5-14.5); RDW Standard Deviation 47.5 fL (36.4-46.3); White Blood Count 12.26 K/uL (4.8-10.8)
[2019-08-06 21:40] LABS: iSTAT Creatinine 0.8 mg/dl (0.6-1.3); iSTAT Hemoglobin 12.2 g/dl (12.0-16.0); iSTAT Ionized Calcium 1.13 mmol/l (1.12-1.32); iSTAT Potassium 3.5 mEq/L (3.3-5.0)
[2019-08-06] MEDS ORDERED: IOVERSOL 100ml IV PRN (21:45)
[2019-08-06 21:53] LABS: Albumin Level 3.5 gm/dl (3.4-5.0); BUN Creatinine Ratio 10.1 (10-20); Creatinine Clr Calc Pharmacy 98.6 ml/min; Est GFR (African American) 90.9; Est GFR (Non-African American) 78.4; Potassium 3.5 mmol/L (3.5-5.1)
[2019-08-06] MEDS ORDERED: KETOROLAC 30 MG/ML VIAL IV ONE (21:53)
[2019-08-06] MEDS ORDERED: ONDANSETRON INJ 2 MG/ML 2 ML VIAL IV STA (21:53)
[2019-08-06] MEDS ORDERED: SODIUM CHLORIDE 0.9% 1000ML 1,000 ML IV ONE (21:54)
[2019-08-06 21:56] LABS: Albumin Globulin Ratio 0.9 (0.9-2); Bilirubin,Total 0.3 mg/dl (0.2-1); Globulin 3.9 gm/dl (2.5-4.0); Total Protein 7.4 gm/dl (6.4-8.2)
[2019-08-06] MEDS: HYDROmorphone INJ 1 MG/ML SYRINGE IV PRN (21:59)
--- NOTE | 2019-08-06 22:09 | CT Scan Report ---
CT SCAN OF THE FACIAL BONES WITH IV CONTRAST CLINICAL HISTORY: Facial cellulitis. COMPARISON STUDY: CT of the facial bones dated 08/05/2019. TECHNIQUE: High-resolution CT scan of the facial bones is performed following the IV administration of 93 cc of Optiray 320. Images are reviewed in the axial, sagittal, and coronal planes. IV contrast was administered without complication. A dose lowering technique was utilized adhering to the princi ples of ALARA. CT DOSE: 149.05 mGy.cm FINDINGS: There is left periorbital and supraorbital soft tissue edema with overlying dermal thickeni ng consistent with the reported history of cellulitis. This is similar appearance to yesterday. There is unchanged to slightly increased premalar soft tissue edema from yesterday. There is a 1.4 x 1.2 x 0.6 cm peripherally enhancing fluid collection seen superficial to the inferior aspect of the maxill israel antrum on image #127. There is no underlying periodontal disease identified. The skeletal structu res are well mineralized. There is no evidence of facial bone fracture. The bony orbits are intact an d the orbital contents are within normal limits. The zygomatic arches, nasal bones, and pterygoid rosendo pedro are preserved. The maxilla and mandible are intact. There are no layering blood products within t he paranasal sinuses. There is evidence of previous paranasal sinus surgery. There is moderate mucosa l thickening within the left maxillary antrum. Trace mucosal thickening is noted in the right maxilla ry antrum and the left sphenoid sinus. The remaining paranasal sinuses are clear. The mastoid air bebeto ls are well pneumatized. The visualized calvarium and upper cervical spine are maintained. Partially imaged brain parenchyma is within normal limits. The carotid arteries and jugular veins are patent bi laterally. Prominent left cervical lymph nodes are likely on a reactive basis. IMPRESSION: 1. Left periorbital soft tissue edema is unchanged from yesterday and consistent with the reported hi story of preseptal/facial cellulitis. 2. Orbital contents are normal in appearance. There is no evidence of orbital cellulitis. 3. There is unchanged to slightly increased premalar soft tissue edema as compared to yesterday. Ther e is a 1.4 cm peripherally enhancing fluid collection seen superficial to the inferior aspect of the left maxillary antrum. This is consistent with abscess. 4. There is no underlying periodontal disease identified. 5. No facial bone abnormality is seen. Electronically signed by: Minesh Barnett M.D. 08/06/2019 10:07 PM
[2019-08-06] MEDS ORDERED: KETOROLAC TROMETHAMINE 15 MG/ML VIAL IV ONE (23:07)
[2019-08-06 23:08] LABS: Magnesium 1.8 mg/dl (1.8-2.4)
--- NOTE | 2019-08-06 23:08 | History & Physical Report ---
Date of Service August 06, 2019 Assessment & Plan (1) Sepsis: Secondary to L facial/periorbital cellulitis secondary to sinusitis/maxillary abscess Failed outpatient Rx chronic migraine on Namenda, at baseline mood disorder, at baseline Hyperglycemia secondary to insulin resistance, PCOS, recent steroid administration from last ER visit recent outpatient hemoglobin A1c of 5.31 October 2018 as per records hypothyroidism, euthyroid as of recent TSH GMF Cultures. Check lactic acid Zosyn, Doxycycline for now MRSA nasal swab, Daptomycin in place of Doxycycline if MRSA swab positive ENT consultation Re: Complicated sinusitis (ER provider already in touch with Dr. León who recommends n.p.o. in anticipation of possible procedure in a.m.) Update hemoglobin A1c DVT prophylaxis. Lovenox subcu Full code History of Present Illness Chief Complaint: -Worsening left face swelling Primary Care Provider: Melania Zhou, History is obtained from the patient, family, and records. Medical history significant for chronic migraine on Namenda, mood disorder, PCOS, insulin resistance as per records, hypothyroidism, gastroparesis. Recent confinement last December 2017 for atypical chest pain. Patient seen at the ER 3 days ago for left-sided facial pain and left cheek swelling. Denies tooth ache, sinus congestion symptoms. Low-grade fever at home as per patient. Possible allergic reaction as per patient. Decadron given at the ER. Patient discharged on Augmentin, tramadol prescription. Progressive swelling noted despite compliance with Rx for about 2 days. Patient had follow-up at PCP's office yesterday. Outpatient facial CT recommended. Imaging done yesterday showed : 1. Left periorbital soft tissue edema, consistent with preseptal cellulitis 2. No evidence of post septal inflammatory change 3. Left maxillary sinus mucosal thickening PCP recommended switching antibiotic Rx to Doxycycline Rx. Worsening left facial swelling with chills after 1 dose of antibiotic. Usual migraine headache. Some left eye discomfort. Vision somewhat blurred in the left eye due to swelling as per patient. Patient received Levaquin, vancomycin, and Zosyn at the ER for sepsis. MEDICAL HISTORY: As above. SURGERIES: Cholecystectomy, sinus surgery. Eye surgery FAMILY HISTORY: Diabetes, heart disease. 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, disabled Allergies Allergy/AdvReac Type Severity Reaction Status Date / Time morphine Allergy Severe Hives,itchiness,nausea Verified 08/06/19 22:31 and vomiting topiramate Allergy Severe neurological Verified 08/06/19 22:31 symptoms cephalexin Allergy Mild rash Verified 08/06/19 22:31 Home Medications Home Medications Medication Instructions Recorded Confirmed Type baclofen 20 mg PO DAILY PRN 06/06/18 08/06/19 History duloxetine 90 mg PO HS 06/06/18 08/06/19 History ergocalciferol (vitamin D2) 50,000 units PO MORALES 06/06/18 08/06/19 History fluticasone propionate [Flonase 2 spray INTRANASAL BID PRN 06/06/18 08/06/19 History Allergy Relief] folic acid 400 mcg PO HS 06/06/18 08/06/19 History levothyroxine 50 mcg PO QAM 06/06/18 08/06/19 History memantine 10 mg PO BIDM 06/06/18 08/06/19 History metformin 500 mg PO BIDM 06/06/18 08/06/19 History pantoprazole 40 mg PO BID 06/06/18 08/06/19 History potassium chloride [Klor-Con 10] 10 meq PO HS 06/06/18 08/06/19 History promethazine 25 mg PO Q6H PRN 06/06/18 08/06/19 History tizanidine 4 - 8 mg PO HS 06/06/18 08/06/19 History trazodone 50 mg PO HS 06/06/18 08/06/19 History zolmitriptan 2.5 - 5 mg PO BID PRN 06/06/18 08/06/19 History albuterol sulfate 2 puff INHALATION Q6H PRN 02/17/19 08/06/19 History cetirizine 10 mg PO QAM 02/17/19 08/06/19 History desipramine 25 mg PO DAILY 02/17/19 08/06/19 History linaclotide [Linzess] 145 mcg PO DAILY PRN 02/17/19 08/06/19 History pindolol 5 mg PO BID 02/17/19 08/06/19 History fremanezumab-vfrm [Ajovy] 225 mg SUBCUT MO 05/19/19 08/06/19 History magnesium gluconate [Mag-G] 125 mg PO DAILY 05/19/19 08/06/19 History multivitamin 1 tab PO HS 06/18/19 08/06/19 History amoxicillin-pot clavulanate 1 tab PO Q12H 7 Days #14 tab 08/03/19 08/06/19 Rx [Augmentin] galcanezumab-gnlm [Emgality Pen] 1 mg SUBCUT UD 08/03/19 08/06/19 History Past Med/Surg History Medical History (Updated 08/07/19 @ 13:59 by Franklin Domínguez MD) Chronic neck pain (Chronic) Depression (Chronic) Epigastric abdominal pain (Acute) Gastric paresis Headache (Acute) High blood pressure (Acute) Leukocytosis (Acute) Migraine (Chronic) Nausea & vomiting (Acute) Obesity Ovarian cyst Partial small bowel obstruction (Resolved) Right flank pain (Acute) Right ovarian cyst (Chronic) RLQ abdominal pain (Acute) Surgical History H/O sinus surgery (Chronic) S/P cholecystectomy (Chronic) Family History Other Cancer Diabetes Heart disease Hypertension Lung disease Seizure Social History Preferred Language: Czech 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 Ability: Effective 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 Truck Required: No Beliefs That Will Affect Care: None marital status: Current Living Situation: Spouse current occupational status: disabled Feels Safe at Home: Yes Smoking Status: Never smoker Hx Alcohol Use: Yes Hx Substance Use: No Review of Systems Review of Systems: As per HPI, all 10 systems reviewed, all other ROS negative Physical Exam Physical Exam: GENERAL: Slightly uncomfortable, anxious, obese, no respiratory distress SKIN: Normal color, warm HEENT: Left facial swelling extended to the left periorbital area, pink palpebral conjunctivae, no EOM entrapment, dry buccal mucosa NECK : Supple, short neck, no tenderness CHEST : CTA, no tenderness HEART : Tachycardic, no obvious murmurs ABDOMEN: Some distention, nontender EXTREMITIES : Minimal LE swelling, no LE tenderness, no other conspicuous deformities noted NEUROLOGIC : Coherent, no facial asymmetry, no other gross focality Results & Data Vital Signs (Past 12 Hours) Vital Signs Temp Pulse Resp BP Pulse Ox 08/06/19 22:30 95 H 22 108/87 94 08/06/19 22:11 97 H 14 143/69 H 99 08/06/19 21:49 114/67 08/06/19 21:30 56 L 22 98 08/06/19 21:00 60 20 118/76 99 08/06/19 20:51 57 L 17 100 08/06/19 20:30 64 23 127/59 L 99 08/06/19 20:24 36.9 C 112 H 19 146/92 H 95 Laboratory Results Laboratory Results WBC 12.26 K/uL (4.8-10.8) H 08/06/19 21:20 RBC 4.30 M/uL (4.2-5.4) 08/06/19 21:20 Hgb 12.6 g/dL (12.0-16.0) 08/06/19 21:20 POC Hgb 12.2 g/dl (12.0-16.0) 08/06/19 21:27 Hct 38.3 % (37-47) 08/06/19 21:20 POC Hct 36 % (37-47) L 08/06/19 21:27 MCV 89.1 fL (80-100) 08/06/19 21:20 MCH 29.3 pg (25-34) 08/06/19 21:20 MCHC 32.9 g/dL (32-36) 08/06/19 21:20 RDW Std Deviation 47.5 fL (36.4-46.3) H 08/06/19 21:20 RDW Coeff of [place] 14.6 % (11.5-14.5) H 08/06/19 21:20 Plt Count 260 K/uL (130-400) 08/06/19 21:20 MPV 8.8 fL (7.4-10.4) 08/06/19 21:20 Immature Gran % (Auto) 0.6 % 08/06/19 21:20 Neut % (Auto) 70.0 % 08/06/19 21:20 Lymph % (Auto) 20.4 % 08/06/19 21:20 [place] % (Auto) 7.3 % 08/06/19 21:20 Eos % (Auto) 1.6 % 08/06/19 21:20 Baso % (Auto) 0.1 % 08/06/19 21:20 Immature Gran # (Auto) 0.07 K/uL (0.00-0.02) H 08/06/19 21:20 Neut # (Auto) 8.59 K/uL (1.4-6.5) H 08/06/19 21:20 Lymph # (Auto) 2.50 K/uL (1.2-3.4) 08/06/19 21:20 [place] # (Auto) 0.89 K/uL (0.11-0.59) H 08/06/19 21:20 Eos # (Auto) 0.20 K/uL (0-0.5) 08/06/19 21:20 Baso # (Auto) 0.01 K/uL (0-0.2) 08/06/19 21:20 POC Sodium 140 mEq/L (135-144) 08/06/19 21:27 Sodium 138 mmol/L (136-145) 08/06/19 21:20 POC Potassium 3.5 mEq/L (3.3-5.0) 08/06/19 21:27 Potassium 3.5 mmol/L (3.5-5.1) 08/06/19 21:20 POC Chloride 104 mEq/L (101-112) 08/06/19 21:27 Chloride 107 mmol/L (98-107) 08/06/19 21:20 Carbon Dioxide 25 mmol/L (21-32) 08/06/19 21:20 POC Total CO2 24 mEq/l (24-31) 08/06/19 21:27 Anion Gap 6.0 (3-11) 08/06/19 21:20 POC Anion Gap 17.0 mmol/L (16-25) 08/06/19 21:27 POC BUN 8 mg/dl (7-18) 08/06/19 21:27 BUN 9 mg/dl (7-18) 08/06/19 21:20 Creatinine 0.92 mg/dl (0.6-1.2) 08/06/19 21:20 POC Creatinine 0.8 mg/dl (0.6-1.3) 08/06/19 21:27 Est Cr Clr Drug Dosing 98.6 ml/min 08/06/19 21:20 Est GFR ( Amer) 90.9 08/06/19 21:20 Est GFR (Non-Af Amer) 78.4 08/06/19 21:20 BUN/Creatinine Ratio 10.1 (10-20) 08/06/19 21:20 Glucose 128 mg/dl (70-99) H 08/06/19 21:20 POC Glucose (other) 132 mg/dl (70-99) H 08/06/19 21:27 Calcium 9.0 mg/dl (8.5-10.1) 08/06/19 21:20 POC Ioniz Calcium Walt 1.13 mmol/l (1.12-1.32) 08/06/19 21:27 Total Bilirubin 0.3 mg/dl (0.2-1) 08/06/19 21:20 AST 10 U/L (15-37) L 08/06/19 21:20 ALT 30 U/L (12-78) 08/06/19 21:20 Alkaline Phosphatase 94 U/L (45-117) 08/06/19 21:20 Total Protein 7.4 gm/dl (6.4-8.2) 08/06/19 21:20 Albumin 3.5 gm/dl (3.4-5.0) 08/06/19 21:20 Globulin 3.9 gm/dl (2.5-4.0) 08/06/19 21:20 Albumin/Globulin Ratio 0.9 (0.9-2) 08/06/19 21:20 Lipase 78 U/L (73-393) 08/06/19 21:[address]: 1. Left periorbital soft tissue edema is unchanged from yesterday and consistent with the reported history of preseptal/facial cellulitis. 2. Orbital contents are normal in appearance. There is no evidence of orbital cellulitis. 3. There is unchanged to slightly increased premalar soft tissue edema as compared to yesterday. There is a 1.4 cm peripherally enhancing fluid collection seen superficial to the inferior aspect of the left maxillary antrum. This is consistent with abscess. 4. There is no underlying periodontal disease identified. 5. No facial bone abnormality is seen.
[2019-08-07] MEDS: HYDROmorphone INJ 1 MG/ML SYRINGE IV PRN (00:01)
[2019-08-07] MEDS ORDERED: LORazepam 0.5 MG/1 ML VIAL IV PRN (01:14)
[2019-08-07] MEDS ORDERED: HYDROmorphone INJ 0.5 MG/0.5 ML SYR IV PRN ×2 (01:14→14:21)
[2019-08-07] MEDS ORDERED: IBUPROFEN 200 MG TAB PO PRN (01:14)
[2019-08-07] MEDS ORDERED: PROMETHAZINE HCL 12.5 MG in SODIUM CHLORIDE 0.9% 50 ML IV PRN (01:14)
[2019-08-07] MEDS ORDERED: KETOROLAC TROMETHAMINE 15 MG/ML VIAL IV PRN (01:14)
[2019-08-07] MEDS ORDERED: LINACLOTIDE 72 MCG CAPSULE PO PRN (01:14)
[2019-08-07] MEDS ORDERED: BACLOFEN 20 MG TAB PO PRN (01:14)
[2019-08-07 01:49] LABS: Appearance Urine Clear (Clear); Bilirubin Urine Negative (Negative); Blood Urine Negative (Negative); Color Urine Yellow; Glucose Urine UA Negative (Negative); Ketones Urine Negative (Negative); Leukocyte Esterase Urine Negative (Negative); Nitrite Urine Negative (Negative); Protein Urine Negative (Negative); Specific Gravity Urine > 1.045 (1.000-1.030); Urobilinogen Urine Negative (Negative)
[2019-08-07 01:54] LABS: Pregnancy Test, Serum Negative (Negative)
--- NOTE | 2019-08-07 02:10 | Emergency Department Note ---
Entered by Jade Arroyo acting as a scribe for History of Present Illness General Chief complaint: Infection Stated complaint: CELLULITIS ON THE FACE Time Seen by Provider: 08/06/19 20:46 Source: patient History of Present Illness Location: face Pain Consistency: + other (worsening) Maximum Pain Intensity: 8 Quality: + other (infection) Associated symptoms: + other (Positive facial cellulitis. Negative eye pain. ) The patient is a 39 year old female who presents to the ED with complaints of an infection. She reports she was seen 4 days ago for dental pain. She then went to her PCP who sent her back for a CT which showed facial cellulitis. She states her antibiotic was changed to doxycycline. She states she was recommended to return to the ED if her facial swelling increased. She reports her pain has worsened and she feels like her face is "trying to explode." She also notes that it is spreading but denies any eye pain. She rates her pain as an 8/10 in severity. Home Medications Home Medications Medication Instructions Recorded Confirmed Type baclofen 20 mg PO DAILY PRN 06/06/18 08/06/19 History duloxetine 90 mg PO HS 06/06/18 08/06/19 History ergocalciferol (vitamin D2) 50,000 units PO MORALES 06/06/18 08/06/19 History fluticasone propionate [Flonase 2 spray INTRANASAL BID PRN 06/06/18 08/06/19 History Allergy Relief] folic acid 400 mcg PO HS 06/06/18 08/06/19 History levothyroxine 50 mcg PO QAM 06/06/18 08/06/19 History memantine 10 mg PO BIDM 06/06/18 08/06/19 History metformin 500 mg PO BIDM 06/06/18 08/06/19 History pantoprazole 40 mg PO BID 06/06/18 08/06/19 History potassium chloride [Klor-Con 10] 10 meq PO HS 06/06/18 08/06/19 History promethazine 25 mg PO Q6H PRN 06/06/18 08/06/19 History tizanidine 4 - 8 mg PO HS 06/06/18 08/06/19 History trazodone 50 mg PO HS 06/06/18 08/06/19 History zolmitriptan 2.5 - 5 mg PO BID PRN 06/06/18 08/06/19 History albuterol sulfate 2 puff INHALATION Q6H PRN 02/17/19 08/06/19 History cetirizine 10 mg PO QAM 02/17/19 08/06/19 History desipramine 25 mg PO DAILY 02/17/19 08/06/19 History linaclotide [Linzess] 145 mcg PO DAILY PRN 02/17/19 08/06/19 History pindolol 5 mg PO BID 02/17/19 08/06/19 History fremanezumab-vfrm [Ajovy] 225 mg SUBCUT MO 05/19/19 08/06/19 History magnesium gluconate [Mag-G] 125 mg PO DAILY 05/19/19 08/06/19 History multivitamin 1 tab PO HS 06/18/19 08/06/19 History amoxicillin-pot clavulanate 1 tab PO Q12H 7 Days #14 tab 08/03/19 08/06/19 Rx [Augmentin] galcanezumab-gnlm [Emgality Pen] 1 mg SUBCUT UD 08/03/19 08/06/19 History Allergies Allergy/AdvReac Type Severity Reaction Status Date / Time morphine Allergy Severe Hives,itchiness,nausea Verified 08/06/19 22:31 and vomiting topiramate Allergy Severe neurological Verified 08/06/19 22:31 symptoms cephalexin Allergy Mild rash Verified 08/06/19 22:31 Past Med/Surg History Medical History Chronic neck pain (Chronic) Depression (Chronic) Epigastric abdominal pain (Acute) Gastric paresis Headache (Acute) High blood pressure (Acute) Leukocytosis (Acute) Migraine (Chronic) Nausea & vomiting (Acute) Ovarian cyst Partial small bowel obstruction (Resolved) Right flank pain (Acute) Right ovarian cyst (Chronic) RLQ abdominal pain (Acute) Surgical History H/O sinus surgery (Chronic) S/P cholecystectomy (Chronic) Family History Other Cancer Diabetes Heart disease Hypertension Lung disease Seizure Social History Preferred Language: Irish 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 Ability: Effective 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 and A total of 10 systems reviewed and were otherwise negative Physical Exam Vital Signs Vital Signs - 24 hr 08/06/19 20:24 08/06/19 20:30 08/06/19 20:51 Temperature 36.9 C Temperature Source Oral Pulse Rate 112 H 64 57 L Pulse Rate from SpO2 Sensor 65 58 L Respiratory Rate 19 23 17 Respiratory Effort / Characteristics Non-Labored Spontaneous Respiratory Depth Normal Respiratory Pattern Regular Blood Pressure 146/92 H 127/59 L Blood Pressure Mean 110 84 Blood Pressure Position Sitting Pulse Oximetry 95 99 100 Oxygen Delivery Method Room Air Sepsis Recent Fever Within 48 Hours No Sepsis New/Unexplained Change in Mental Status No Sepsis Action Taken by Nursing No Action Required 08/06/19 21:00 08/06/19 21:30 08/06/19 21:49 Temperature Temperature Source Pulse Rate 60 56 L Pulse Rate from SpO2 Sensor 60 57 L Respiratory Rate 20 22 Respiratory Effort / Characteristics Respiratory Depth Respiratory Pattern Blood Pressure 118/76 114/67 Blood Pressure Mean 86 79 Blood Pressure Position Pulse Oximetry 99 98 Oxygen Delivery Method Sepsis Recent Fever Within 48 Hours Sepsis New/Unexplained Change in Mental Status Sepsis Action Taken by Nursing 08/06/19 22:11 08/06/19 22:30 08/06/19 23:00 Temperature Temperature Source Pulse Rate 97 H 95 H 102 H Pulse Rate from SpO2 Sensor 93 H 96 H 99 H Respiratory Rate 14 22 23 Respiratory Effort / Characteristics Respiratory Depth Respiratory Pattern Blood Pressure 143/69 H 108/87 131/91 Blood Pressure Mean 119 93 100 Blood Pressure Position Pulse Oximetry 99 94 98 Oxygen Delivery Method Sepsis Recent Fever Within 48 Hours Sepsis New/Unexplained Change in Mental Status Sepsis Action Taken by Nursing 08/06/19 23:01 Temperature Temperature Source Pulse Rate 96 H Pulse Rate from SpO2 Sensor 96 H Respiratory Rate 18 Respiratory Effort / Characteristics Respiratory Depth Respiratory Pattern Blood Pressure Blood Pressure Mean Blood Pressure Position Pulse Oximetry 96 Oxygen Delivery Method Sepsis Recent Fever Within 48 Hours Sepsis New/Unexplained Change in Mental Status Sepsis Action Taken by Nursing GENERAL: Awake, alert, well-appearing, in no acute distress HENT: Normocephalic, atraumatic. Oropharynx unremarkable. EYES: Normal conjunctiva. Sclera non-icteric. NECK: Supple. No nuchal rigidity. FROM. No JVD. RESPIRATORY: Clear to auscultation. CARDIAC: Regular rate, normal rhythm. Extremities warm and well perfused. Pulses equal. ABDOMEN: Soft, non-distended. No tenderness to palpation. No rebound or guarding. No masses. RECTAL: Deferred. MUSCULOSKELETAL: Chest examination reveals no tenderness. The back is symmetrical on inspection without obvious abnormality. There is no CVA tenderness to palpation. No joint edema. LOWER EXTREMITIES: Calves are equal size bilaterally and non-tender. No edema. No discoloration. NEURO: Normal sensorium. No sensory or motor deficits noted. SKIN: Large left sided facial cellulitis Course Course 2050: Past medical records reviewed. The patient was evaluated in room A12. A complete history and physical exam was performed. 2225: [facility] the patient's [facility] The patient will be evaluated for further management. 2227: Discussed the patient's case with Dr. León, ENT. He is in agreement that the patient should be evaluated for further management. Administered Medications Discontinued Medications Hydromorphone HCl (Dilaudid) 1 mg IV Q15M PRN PRN Reason: Pain Stop: 08/20/19 21:52 Last Admin: 08/07/19 00:01 Dose: 1 mg Documented by: [id number] Admin: 08/06/19 21:59 Dose: 1 mg Documented by: [id number] Piperacillin Sod/Tazobactam Sod (Zosyn) 4.5 gm in 120 mls @ 240 mls/hr IV NOW ONE Stop: 08/06/19 21:24 Last Infusion: 08/06/19 22:01 Dose: 0 mls/hr Documented by: [id number] Admin: 08/06/19 21:37 Dose: 240 mls/hr Documented by: [id number] Levofloxacin/Dextrose (Levaquin/D5w) 750 mg in 150 mls @ 100 mls/hr IV NOW STA Stop: 08/06/19 22:24 Last Infusion: 08/07/19 00:25 Dose: 0 mls/hr Documented by: [id number] Admin: 08/06/19 21:59 Dose: 100 mls/hr Documented by: [id number] Vancomycin HCl (Vancomycin Hcl) 1,000 mg in 270 mls @ 125 mls/hr IV NOW STA Stop: 08/06/19 23:04 Last Admin: 08/07/19 00:01 Dose: 125 mls/hr Documented by: [id number] Sodium Chloride (Nss 1000ml) 1,000 mls @ 999 mls/hr IV .Q1H1M ONE Stop: 08/06/19 22:54 Last Infusion: 08/06/19 23:05 Dose: 0 mls/hr Documented by: [id number] Admin: 08/06/19 22:01 Dose: 999 mls/hr Documented by: [id number] Ioversol (Optiray 320 100ml) 93 ml IV ONCE PRN PRN Reason: Interaction Checking Stop: 08/10/19 21:44 Last Admin: 08/06/19 21:45 Dose: 93 ml Documented by: [id number] Ketorolac Tromethamine (Toradol) 30 mg IV NOW ONE Stop: 08/06/19 21:54 Last Admin: 08/06/19 21:59 Dose: 30 mg Documented by: [id number] Ketorolac Tromethamine (Toradol) 15 mg IV NOW ONE Stop: 08/06/19 23:08 Last Admin: 08/07/19 00:01 Dose: 15 mg Documented by: [id number] Ondansetron HCl (Zofran) 4 mg IV NOW STA Stop: 08/06/19 21:54 Last Admin: 08/06/19 21:59 Dose: 4 mg Documented by: [id number] Medical Decision Making Differential Diagnosis Differential diagnosis: Etiologies such as cellulitis, abscess, MRSA infection, DVT, necrotizing fasciitis, dermatitis, drug eruption, as well as others were entertained. Medical Records Attestation: I reviewed the patient's medical records. Home Medications Current Medication List: was personally reviewed by me Laboratory Data Attestation: I reviewed the patient's lab results. Result diagrams: 08/06/19 21:20 08/06/19 21:20 Lab Results 08/06/19 08/06/19 08/06/19 Range/Units 21:20 21:20 21:20 WBC 12.26 H (4.8-10.8) K/uL RBC 4.30 (4.2-5.4) M/uL Hgb 12.6 (12.0-16.0) g/dL POC Hgb (12.0-16.0) g/dl Hct 38.3 (37-47) % POC Hct (37-47) % MCV 89.1 (80-100) fL MCH 29.3 (25-34) pg MCHC 32.9 (32-36) g/dL RDW Std Deviation 47.5 H (36.4-46.3) fL RDW Coeff of Cameron 14.6 H (11.5-14.5) % Plt Count 260 (130-400) K/uL MPV 8.8 (7.4-10.4) fL Immature Gran % (Auto) 0.6 % Neut % (Auto) 70.0 % Lymph % (Auto) 20.4 % [place] % (Auto) 7.3 % Eos % (Auto) 1.6 % Baso % (Auto) 0.1 % Immature Gran # (Auto) 0.07 H (0.00-0.02) K/uL Neut # (Auto) 8.59 H (1.4-6.5) K/uL Lymph # (Auto) 2.50 (1.2-3.4) K/uL [place] # (Auto) 0.89 H (0.11-0.59) K/uL Eos # (Auto) 0.20 (0-0.5) K/uL Baso # (Auto) 0.01 (0-0.2) K/uL POC Sodium (135-144) mEq/L Sodium 138 (136-145) mmol/L POC Potassium (3.3-5.0) mEq/L Potassium 3.5 (3.5-5.1) mmol/L POC Chloride (101-112) mEq/L Chloride 107 (98-107) mmol/L Carbon Dioxide 25 (21-32) mmol/L POC Total CO2 (24-31) mEq/l Anion Gap 6.0 (3-11) POC Anion Gap (16-25) mmol/L POC BUN (7-18) mg/dl BUN 9 (7-18) mg/dl Creatinine 0.92 (0.6-1.2) mg/dl POC Creatinine (0.6-1.3) mg/dl Est Cr Clr Drug Dosing 98.6 ml/min Est GFR ( Amer) 90.9 Est GFR (Non-Af Amer) 78.4 BUN/Creatinine Ratio 10.1 (10-20) Glucose 128 H (70-99) mg/dl POC Glucose (other) (70-99) mg/dl Calcium 9.0 (8.5-10.1) mg/dl POC Ioniz Calcium Walt (1.12-1.32) mmol/l Magnesium 1.8 (1.8-2.4) mg/dl Total Bilirubin 0.3 (0.2-1) mg/dl AST 10 L (15-37) U/L ALT 30 (12-78) U/L Alkaline Phosphatase 94 (45-117) U/L Total Protein 7.4 (6.4-8.2) gm/dl Albumin 3.5 (3.4-5.0) gm/dl Globulin 3.9 (2.5-4.0) gm/dl Albumin/Globulin Ratio 0.9 (0.9-2) Lipase 78 (73-393) U/L HCG, Qual Negative (Negative) 08/06/19 Range/Units 21:27 WBC (4.8-10.8) K/uL RBC (4.2-5.4) M/uL Hgb (12.0-16.0) g/dL POC Hgb 12.2 (12.0-16.0) g/dl Hct (37-47) % POC Hct 36 L (37-47) % MCV (80-100) fL MCH (25-34) pg MCHC (32-36) g/dL RDW Std Deviation (36.4-46.3) fL RDW Coeff of Cameron (11.5-14.5) % Plt Count (130-400) K/uL MPV (7.4-10.4) fL Immature Gran % (Auto) % Neut % (Auto) % Lymph % (Auto) % [place] % (Auto) % Eos % (Auto) % Baso % (Auto) % Immature Gran # (Auto) (0.00-0.02) K/uL Neut # (Auto) (1.4-6.5) K/uL Lymph # (Auto) (1.2-3.4) K/uL [place] # (Auto) (0.11-0.59) K/uL Eos # (Auto) (0-0.5) K/uL Baso # (Auto) (0-0.2) K/uL POC Sodium 140 (135-144) mEq/L Sodium (136-145) mmol/L POC Potassium 3.5 (3.3-5.0) mEq/L Potassium (3.5-5.1) mmol/L POC Chloride 104 (101-112) mEq/L Chloride (98-107) mmol/L Carbon Dioxide (21-32) mmol/L POC Total CO2 24 (24-31) mEq/l Anion Gap (3-11) POC Anion Gap 17.0 (16-25) mmol/L POC BUN 8 (7-18) mg/dl BUN (7-18) mg/dl Creatinine (0.6-1.2) mg/dl POC Creatinine 0.8 (0.6-1.3) mg/dl Est Cr Clr Drug Dosing ml/min Est GFR ( Amer) Est GFR (Non-Af Amer) BUN/Creatinine Ratio (10-20) Glucose (70-99) mg/dl POC Glucose (other) 132 H (70-99) mg/dl Calcium (8.5-10.1) mg/dl POC Ioniz Calcium Walt 1.13 (1.12-1.32) mmol/l Magnesium (1.8-2.4) mg/dl Total Bilirubin (0.2-1) mg/dl AST (15-37) U/L ALT (12-78) U/L Alkaline Phosphatase (45-117) U/L Total Protein (6.4-8.2) gm/dl Albumin (3.4-5.0) gm/dl Globulin (2.5-4.0) gm/dl Albumin/Globulin Ratio (0.9-2) Lipase (73-393) U/L HCG, Qual (Negative) Imaging Data Radiologist's Impression: Radiology results as stated below per my review and the radiologist's interpretation: CT SCAN OF THE FACIAL BONES WITH IV CONTRAST CLINICAL HISTORY: Facial cellulitis. COMPARISON STUDY: CT of the facial bones dated 08/05/2019. TECHNIQUE: High-resolution CT scan of the facial bones is performed following the IV administration of 93 cc of Optiray 320. Images are reviewed in the axial, sagittal, and coronal planes. IV contrast was administered without complication. A dose lowering technique was utilized adhering to the principles of ALARA. CT DOSE: 149.05 mGy.cm FINDINGS: There is left periorbital and supraorbital soft tissue edema with overlying dermal thickening consistent with the reported history of cellulitis. This is similar appearance to yesterday. There is unchanged to slightly increased premalar soft tissue edema from yesterday. There is a 1.4 x 1.2 x 0.6 cm peripherally enhancing fluid collection seen superficial to the inferior aspect of the maxillary antrum on image #127. There is no underlying periodontal disease identified. The skeletal structures are well mineralized. There is no evidence of facial bone fracture. The bony orbits are intact and the orbital contents are within normal limits. The zygomatic arches, nasal bones, and pterygoid plates are preserved. The maxilla and mandible are intact. There are no layering blood products within the paranasal sinuses. There is evidence of p revious paranasal sinus surgery. There is moderate mucosal thickening within the left maxillary antrum. Trace mucosal thickening is noted in the right maxillary antrum and the left sphenoid sinus. The remaining paranasal sinuses are clear. The mastoid air cells are well pneumatized. The visualized calvarium and upper cervical spine are maintained. Partially imaged brain parenchyma is within normal limits. The carotid arteries and jugular veins are patent bilaterally. Prominent left cervical lymph nodes are likely on a reactive basis. IMPRESSION: 1. Left periorbital soft tissue edema is unchanged from yesterday and consistent with the reported history of preseptal/facial cellulitis. 2. Orbital contents are normal in appearance. There is no evidence of orbital cellulitis. 3. There is unchanged to slightly increased premalar soft tissue edema as compared to yesterday. There is a 1.4 cm peripherally enhancing fluid collection seen superficial to the inferior aspect of the left maxillary antrum. This is consistent with abscess. 4. There is no underlying periodontal disease identified. 5. No facial bone abnormality is seen. Electronically signed by: Minesh Barnett M.D. 08/06/2019 10:07 PM Blood Pressure Blood Pressure Findings: Elevated blood pressure Blood Pressure Disposition: further management by hospitalist MOLLY Pisano This is a 39-year-old female who has been on antibiotics since Saturday for's facial swelling. The patient swelling has become worse. She does have an elevation in her white blood cell count. Using shared medical decision making with the patient and significant other patient was sent for CAT scan of the face. This was concerning for a very small abscess. For this reason I did discuss the case with the ear nose and throat physician on-call as well as the hospitalist service. The patient was given Dilaudid for her pain as well as Toradol. She was kept n.p.o. She was given Zosyn as well as Levaquin. Patient and significant other were in agreement with the treatment plan. Impression & Plan Leukocytosis, Facial swelling Discharge Plan Visit Data *Final* Discharge Date/Time: 08/07/19 00:26 Chief Complaint: Infection Stated Complaint: CELLULITIS ON THE FACE ED Provider: Mata Blackburn Discharge Problem: Leukocytosis, Facial swelling Patient Disposition: Admitted As Inpatient Discharge Instructions Interventions: ED Discharge Assessment Last Done: 08/07/19 00:26 Discharge Problem: Leukocytosis Qualifiers: Leukocytosis type: unspecified Qualified Code(s): D72.829 - Elevated white blood cell count, unspecified The scribe's documentation has been prepared under my direction and personally reviewed by me in its entirety. I confirm that the note above accurately reflects all work, treatment, procedures, and medical decision making performed by me.
[2019-08-07] MEDS: OXYCODONE HCL IR 5 MG TAB (IMMEDIATE RELEASE) PO PRN ×4 (02:11→22:22)
[2019-08-07] MEDS: LACTATED RINGER'S 1,000 ML IV SCH ×2 (02:23→17:51)
[2019-08-07] MEDS: PIPERACILLIN/TAZOBACTAM 4.5 GM in DEXTROSE 5% 100 ML IV SCH ×3 (03:08→18:59)
[2019-08-07] MEDS: PROPRANOLOL HCL 10 MG TAB PO SCH ×3 (03:45→21:28)
[2019-08-07] MEDS: LEVOTHYROXINE SODIUM 50 MCG TABLET PO SCH (06:02)
[2019-08-07 06:03] LABS: Estimated Average Glucose 111 mg/dl; Hemoglobin A1C 5.5 % (4.5-5.6)
[2019-08-07 07:28] LABS: Basophils # (auto) 0.01 K/uL (0-0.2); Basophils % (auto) 0.1 %; Eosinophils # (auto) 0.17 K/uL (0-0.5); Hematocrit (blood only) 33.1 % (37-47); Hemoglobin 10.8 g/dL (12.0-16.0); Immature Granulocytes # (auto) 0.03 K/uL (0.00-0.02); Immature Granulocytes % (auto) 0.3 %; Lymphocytes # (auto) 2.31 K/uL (1.2-3.4); Lymphocytes % (auto) 26.9 %; Mean Corpuscular Hemoglobin 29.3 pg (25-34); Mean Corpuscular Hgb Conc 32.6 g/dL (32-36); Mean Corpuscular Volume 89.9 fL (80-100); Mean Platelet Volume 8.9 fL (7.4-10.4); Neutrophils # (auto) 5.46 K/uL (1.4-6.5); Neutrophils % (auto) 63.7 %; Platelet Count 219 K/uL (130-400); RDW Coefficient of Variation 14.6 % (11.5-14.5); RDW Standard Deviation 48.1 fL (36.4-46.3); Red Blood Count 3.68 M/uL (4.2-5.4); White Blood Count 8.58 K/uL (4.8-10.8)
[2019-08-07] MEDS ORDERED: DOXYCYCLINE HYCLATE 100 MG in DEXTROSE 5% 100 ML IV SCH (08:00)
[2019-08-07 08:06] LABS: BUN Creatinine Ratio 10.9 (10-20); Calcium 8.2 mg/dl (8.5-10.1); Creatinine Clr Calc Pharmacy 111.1 ml/min; Est GFR (African American) 104.5; Est GFR (Non-African American) 90.1; Potassium 3.7 mmol/L (3.5-5.1)
[2019-08-07] MEDS ORDERED: CETIRIZINE HCL 10 MG TABLET PO SCH (09:00)
[2019-08-07] MEDS ORDERED: ENOXAPARIN INJ 40 MG/0.4 ML SYR SQ SCH (09:00)
[2019-08-07] MEDS: MEMANTINE HCL 10 MG TAB PO SCH ×2 (09:08→18:25)
[2019-08-07] MEDS: PANTOprazole 40 MG TAB PO SCH ×2 (09:09→21:27)
[2019-08-07] MEDS: DESIPRAMINE HCL 25 MG TAB PO SCH (09:09)
--- NOTE | 2019-08-07 11:37 | ENT Consultation ---
Date of Consultation August 07, 2019 Assessment & Plan (1) Facial abscess: Incision and drainage of facial abscess (2) Chronic sinusitis: Endoscopic sinus surgery History of Present Illness Reason for Consultation: Left cheek abscess Attending Physician: Pedro Pineda MD History of Present Illness 39-year-old lady presented with acute onset of cellulitis and left cheek abscess of 1.5 cm with evidence of left maxillary and ethmoid sinusitis on CT scan Allergies Allergy/AdvReac Type Severity Reaction Status Date / Time morphine Allergy Severe Hives,itchiness,nausea Verified 08/06/19 22:31 and vomiting topiramate Allergy Severe neurological Verified 08/06/19 22:31 symptoms cephalexin Allergy Mild rash Verified 08/06/19 22:31 Home Medications Home Medications Medication Instructions Recorded Confirmed Type baclofen 20 mg PO DAILY PRN 06/06/18 08/06/19 History duloxetine 90 mg PO HS 06/06/18 08/06/19 History ergocalciferol (vitamin D2) 50,000 units PO MORALES 06/06/18 08/06/19 History fluticasone propionate [Flonase 2 spray INTRANASAL BID PRN 06/06/18 08/06/19 History Allergy Relief] folic acid 400 mcg PO HS 06/06/18 08/06/19 History levothyroxine 50 mcg PO QAM 06/06/18 08/06/19 History memantine 10 mg PO BIDM 06/06/18 08/06/19 History metformin 500 mg PO BIDM 06/06/18 08/06/19 History pantoprazole 40 mg PO BID 06/06/18 08/06/19 History potassium chloride [Klor-Con 10] 10 meq PO HS 06/06/18 08/06/19 History promethazine 25 mg PO Q6H PRN 06/06/18 08/06/19 History tizanidine 4 - 8 mg PO HS 06/06/18 08/06/19 History trazodone 50 mg PO HS 06/06/18 08/06/19 History zolmitriptan 2.5 - 5 mg PO BID PRN 06/06/18 08/06/19 History albuterol sulfate 2 puff INHALATION Q6H PRN 02/17/19 08/06/19 History cetirizine 10 mg PO QAM 02/17/19 08/06/19 History desipramine 25 mg PO DAILY 02/17/19 08/06/19 History linaclotide [Linzess] 145 mcg PO DAILY PRN 02/17/19 08/06/19 History pindolol 5 mg PO BID 02/17/19 08/06/19 History fremanezumab-vfrm [Ajovy] 225 mg SUBCUT MO 05/19/19 08/06/19 History magnesium gluconate [Mag-G] 125 mg PO DAILY 05/19/19 08/06/19 History multivitamin 1 tab PO HS 06/18/19 08/06/19 History amoxicillin-pot clavulanate 1 tab PO Q12H 7 Days #14 tab 08/03/19 08/06/19 Rx [Augmentin] galcanezumab-gnlm [Emgality Pen] 1 mg SUBCUT UD 08/03/19 08/06/19 History Patient History Medical History Chronic neck pain (Chronic) Depression (Chronic) Epigastric abdominal pain (Acute) Gastric paresis Headache (Acute) High blood pressure (Acute) Leukocytosis (Acute) Migraine (Chronic) Nausea & vomiting (Acute) Ovarian cyst Partial small bowel obstruction (Resolved) Right flank pain (Acute) Right ovarian cyst (Chronic) RLQ abdominal pain (Acute) Surgical History H/O sinus surgery (Chronic) S/P cholecystectomy (Chronic) Family History Other Cancer Diabetes Heart disease Hypertension Lung disease Seizure Social History Preferred Language: Citizen Of [place] 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 Ability: Effective 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 Beliefs That Will Affect Care: None marital status: Current Living Situation: Spouse current occupational status: disabled Feels Safe at Home: Yes Smoking Status: Never smoker Hx Alcohol Use: Yes Hx Substance Use: No Physical Exam Constitutional: WD/WN, vitals as above Eyes: PERRL, conjunctivae normal, anicteric sclerae ENMT: Nose: + external nose abnormality (Redness and swelling and tenderness lateral to left side of nose on the maxilla with evidence of possible abscess) Neck: trachea midline, no thyromegaly Results & Data Vital Signs (Past 12 Hours) Vital Signs Temp Pulse Pulse Pulse Resp BP BP 08/07/19 09:13 71 117/72 08/07/19 07:17 36.8 C 69 16 116/81 08/07/19 01:00 37.1 C 92 H 18 129/86 08/07/19 00:01 94 H 20 119/91 08/07/19 00:00 97 H 23 Pulse Ox 08/07/19 09:13 08/07/19 07:17 95 08/07/19 01:00 96 08/07/19 00:01 96 08/07/19 00:00 96
[2019-08-07] MEDS ORDERED: fentaNYL citrate 100 MCG/2 ML VIAL ONE (12:15)
[2019-08-07] MEDS ORDERED: MIDAZOLAM HCL 1 MG/ML 2ML VIAL ONE (12:15)
--- NOTE | 2019-08-07 14:00 | Anesthesiology Consultation ---
Date of Service August 07, 2019 Assessment & Plan (1) Encounter for pre-operative examination: Chart Review Chart Review: Acceptable Risk for Surgery History Surgery Operation Date: 08/07/19 12:45 Proposed Procedures p Endoscopic Sinus Surgery - Yoanna León MD s Left Cheek Incision and Drainage - Yoanna León MD Height/Weight Height: 5 ft 6 in Weight: 102.1 kg Allergies Allergy/AdvReac Type Severity Reaction Status Date / Time morphine Allergy Severe Hives,itchiness,nausea Verified 08/06/19 22:31 and vomiting topiramate Allergy Severe neurological Verified 08/06/19 22:31 symptoms cephalexin Allergy Mild rash Verified 08/06/19 22:31 Medications Home Medications Medication Instructions Recorded Confirmed Last Taken baclofen 20 mg PO DAILY PRN 06/06/18 08/06/19 08/06/19 duloxetine 90 mg PO HS 06/06/18 08/06/19 08/05/19 ergocalciferol (vitamin D2) 50,000 units PO MORALES 06/06/18 08/06/19 08/02/19 fluticasone propionate [Flonase 2 spray INTRANASAL BID PRN 06/06/18 08/06/19 Unknown Allergy Relief] folic acid 400 mcg PO HS 06/06/18 08/06/19 08/05/19 levothyroxine 50 mcg PO QAM 06/06/18 08/06/19 08/06/19 memantine 10 mg PO BIDM 06/06/18 08/06/19 08/06/19 metformin 500 mg PO BIDM 06/06/18 08/06/19 08/06/19 pantoprazole 40 mg PO BID 06/06/18 08/06/19 08/05/19 potassium chloride [Klor-Con 10] 10 meq PO HS 06/06/18 08/06/19 08/05/19 promethazine 25 mg PO Q6H PRN 06/06/18 08/06/19 08/06/19 tizanidine 4 - 8 mg PO HS 06/06/18 08/06/19 08/05/19 trazodone 50 mg PO HS 06/06/18 08/06/19 08/05/19 zolmitriptan 2.5 - 5 mg PO BID PRN 06/06/18 08/06/19 Unknown albuterol sulfate 2 puff INHALATION Q6H PRN 02/17/19 08/06/19 Unknown cetirizine 10 mg PO QAM 02/17/19 08/06/19 08/06/19 desipramine 25 mg PO DAILY 02/17/19 08/06/19 08/06/19 linaclotide [Linzess] 145 mcg PO DAILY PRN 02/17/19 08/06/19 08/06/19 pindolol 5 mg PO BID 02/17/19 08/06/19 08/06/19 fremanezumab-vfrm [Ajovy] 225 mg SUBCUT MO 05/19/19 08/06/19 05/03/19 magnesium gluconate [Mag-G] 125 mg PO DAILY 05/19/19 08/06/19 08/06/19 multivitamin 1 tab PO HS 06/18/19 08/06/19 08/05/19 amoxicillin-pot clavulanate 1 tab PO Q12H 7 Days #14 tab 08/03/19 08/06/19 08/06/19 [Augmentin] galcanezumab-gnlm [Emgality Pen] 1 mg SUBCUT UD 08/03/19 08/06/19 Unknown Active Medications Generic Name Dose Route Start Last Admin Trade Name Freq PRN Reason Stop Dose Admin Cetirizine HCl 10 mg 08/07/19 09:00 08/07/19 09:09 Zyrtec PO 09/06/19 08:59 Not Given QAM ALVAREZ Desipramine HCl 25 mg 08/07/19 09:00 08/07/19 09:09 Norpramin PO 09/06/19 08:59 Not Given DAILY ALVAREZ Enoxaparin Sodium 40 mg 08/07/19 09:00 08/07/19 09:09 Lovenox SQ 09/06/19 08:59 Not Given QAM ALVAREZ Hydromorphone HCl 0.5 mg 08/07/19 01:14 08/07/19 09:16 Dilaudid IV 08/21/19 01:13 0.5 mg Q6H PRN Administration Pain Doxycycline Hyclate 100 mg/ 110 mls @ 50 mls/hr 08/07/19 08:00 08/07/19 09:53 Dextrose IV 08/17/19 07:59 Infused Q12H ALVAREZ Infusion Protocol Lactated Ringer's 1,000 mls @ 80 mls/hr 08/07/19 01:14 08/07/19 02:23 Lr IV 09/06/19 01:13 80 mls/hr .[id number] ALVAREZ Administration Piperacillin Sod/Tazobactam 120 mls @ 30 mls/hr 08/07/19 02:00 08/07/19 13:59 Sod 4.5 gm/ Dextrose IV 08/17/19 01:59 Infused Q8H ALVAREZ Infusion Protocol Ketorolac Tromethamine 15 mg 08/07/19 01:14 08/07/19 06:02 Toradol IV 08/12/19 01:13 15 mg Q6H PRN Administration Pain Levothyroxine Sodium 50 mcg 08/07/19 06:30 08/07/19 06:02 Synthroid PO 09/06/19 06:29 50 mcg DAILYBB ALVAREZ Administration Memantine 10 mg 08/07/19 08:00 08/07/19 09:08 Namenda PO 09/06/19 07:59 Not Given BIDM ALVAREZ Oxycodone HCl 5 mg 08/07/19 01:14 08/07/19 07:38 Roxicodone Immediate Rel PO 08/21/19 01:13 5 mg Q4H PRN Administration Pain Pantoprazole Sodium 40 mg 08/07/19 09:00 08/07/19 09:09 Protonix PO 09/06/19 08:59 Not Given BID ALVAREZ Propranolol HCl 30 mg 08/07/19 02:30 08/07/19 09:13 Inderal PO 09/06/19 02:29 30 mg BID ALVAREZ Administration NPO Date Last Intake of Fluids: 08/06/19 Time Last Intake of Fluids: 23:59 Last Intake of Fluids Comment: sips with meds this AM Date Last Intake of Solids: 08/06/19 Time Last Intake of Solids: 19:30 Past Medical History Medical History (Updated 08/07/19 @ 13:59 by Franklin Domínguez MD) Chronic neck pain (Chronic) Depression (Chronic) Epigastric abdominal pain (Acute) Gastric paresis Headache (Acute) High blood pressure (Acute) Leukocytosis (Acute) Migraine (Chronic) Nausea & vomiting (Acute) Obesity Ovarian cyst Partial small bowel obstruction (Resolved) Right flank pain (Acute) Right ovarian cyst (Chronic) RLQ abdominal pain (Acute) Past Family History Family History Other Cancer Diabetes Heart disease Hypertension Lung disease Seizure Past Surgical History Surgical History H/O sinus surgery (Chronic) S/P cholecystectomy (Chronic) Social History Smoking Status: Never smoker Hx Alcohol Use: Yes alcohol intake frequency: holidays/special occasions only Hx Substance Use: No Physical Exam Vital Signs Last Vital Signs Temp 36.8 C 08/07/19 07:17 Pulse 71 08/07/19 09:13 Resp 16 08/07/19 07:17 BP 117/72 08/07/19 09:13 Pulse Ox 95 08/07/19 07:17 Testing Laboratory Results 08/07/19 06:56 08/07/19 06:56 Hemoglobin A1c 5.5 % (4.5-5.6) 08/06/19 23:32 Urine Color Yellow 08/07/19 01:30 Urine Appearance Clear (Clear) 08/07/19 01:30 Urine pH 5.0 (4.5-7.5) 08/07/19 01:30 Ur Specific [place] > 1.045 (1.000-1.030) H 08/07/19 01:30 Urine Protein Negative (Negative) 08/07/19 01:30 Urine Glucose (UA) Negative (Negative) 08/07/19 01:30 Urine Ketones Negative (Negative) 08/07/19 01:30 Urine Nitrite Negative (Negative) 08/07/19 01:30 Ur Leukocyte Esterase Negative (Negative) 08/07/19 01:30
[2019-08-07] MEDS ORDERED: TRIAMCINOLONE ACET 40 MG/ML VIAL ONE (14:34)
[2019-08-07] MEDS ORDERED: LIDOCAINE 4% INH SOLN 4 ML BTL ONE (14:34)
[2019-08-07] MEDS ORDERED: BACITRACIN OINT 15 GM TUBE ONE (14:34)
[2019-08-07] MEDS ORDERED: EPINEPHrine INJ 1 MG/ML AMP ONE (14:34)
[2019-08-07] MEDS ORDERED: GELATIN SPONGE 12-7MM ONE (14:34)
[2019-08-07] MEDS ORDERED: LIDOCAINE/EPINE 2% 1:100,000 20ML ONE (14:34)
[2019-08-07] MEDS ORDERED: LIDOCAINE HCL 2% 2 ML VIAL/AMP(20MG/ML) INFIL ONE (14:49)
[2019-08-07] MEDS ORDERED: SUCCINYLCHOLINE CHLORIDE 20 MG/ML 10 ML VIAL ONE (14:49)
[2019-08-07] MEDS ORDERED: ONDANSETRON INJ 2 MG/ML 2 ML VIAL ONE (14:49)
[2019-08-07] MEDS ORDERED: PROPOFOL IV EMULSION 10 MG/ML 20 ML VIAL IV ONE (14:49)
[2019-08-07] MEDS ORDERED: ATROPINE SULFATE 0.1 MG/ML 10ML SYR IV PRN (14:52)
[2019-08-07] MEDS ORDERED: ePHEDrine sulfate 50 MG/ML AMP IV PRN (14:52)
[2019-08-07] MEDS ORDERED: ONDANSETRON INJ 2 MG/ML 2 ML VIAL IV PRN (14:53)
[2019-08-07] MEDS ORDERED: LABETALOL HCL IV 5 MG/ML 20ML IV PRN (14:53)
[2019-08-07] MEDS ORDERED: LARYING-O-JET KIT (LTA) ONE (15:51)
--- NOTE | 2019-08-07 16:27 | Operative Report ---
Post Operative Report Pre & Post Diagnosis Operation Date: 08/07/19 12:45 Pre-Op Diagnosis: left facial abscess and chronic sinusitis Post-Op Diagnosis: left facial abscess and chronic sinusitis I identified the patient and participated in the time-out.: Yes Procedure Operation Date: 08/07/19 12:45 Actual Procedures p Endoscopic Sinus Surgery with right and left frontal, right and left total ethmoidectomy and right and left maxillary sinus antrostomies (Bilateral) - Yoanna León MD s Left Cheek Incision and Drainage(Left) - Yoanna León MD Surgeon Yoanna León MD Checkout Supervisor None Estimated Blood Loss 45 Findings Consistent with Post-Op Diagnosis Specimens Culture left cheek abscess Anesthesia Type General Complications none Disposition Accompanied Patient To Recovery: Yes Disposition: Recovery Room Indications Chronic sinusitis and left cheek abscess Description of Procedure She was brought to the operating room, properly identified, placed in the supine position then prepped with Betadine paint and draped in the usual sterile manner after general endotracheal anesthesia. The [employer] device was calibrated and used for the entire procedure. The right maxillary sinus was cannulated with guidewire and dilated using the 6 mm balloon as was the left maxillary sinus. The left maxillary sinus was stenotic and had to be found using the seeker and then dilated using the balloon. The left nasofrontal duct was cannulated with a guidewire with [employer] computer guidance and dilated using the 6 mm balloon. The guidewire was left in place as a marker and frontal sinusotomy was performed by coupling the shaver with the [employer] device and then removing adhesions from the middle turbinate laterally closing the Agre nasi cell and then removing multiple adhesions in the ethmoid sinus cavity into the posterior most ethmoid which was identified with the [employer] along with the skull base and lamina papyracea I. The structures were followed anteriorly to exonerate all the posterior and all the anterior ethmoid sinus adhesions and then opening up the maxillary ostia to a 1 cm opening. The nasofrontal duct was redilated and a contour stent was placed in the nasofrontal duct and a mini stent was placed in the left maxillary sinus ostia. Attention was turned to the right side where a frontal sinusotomy total ethmoidectomy maxillary sinus antrostomy was performed in a similar manner again placing contour and mini stents. Left cheek abscess was injected with 2% Xylocaine with 1-100,000 strength epinephrine and then incised with a 15 blade and then opened using a small hemostat and then irrigated clean with saline and then packed with iodoform gauze. She tolerated procedure well and was taken to recovery area in satisfactory condition. I attest to the content of the Intraoperative Record and any orders documented therein. Any exceptions are noted below.
[2019-08-07] MEDS: fentaNYL citrate 100 MCG/2 ML VIAL IV PRN ×2 (16:34→16:39)
--- NOTE | 2019-08-07 17:06 | Anesthesiology Progress Note ---
Date of Service August 07, 2019 Anesthesia Post Procedure Vital Signs Vital Signs: Temp Pulse Pulse Pulse Pulse Resp BP 08/07/19 16:55 75 16 08/07/19 16:45 79 16 08/07/19 16:35 75 16 08/07/19 16:28 36.5 C 74 16 08/07/19 14:38 36.8 C 70 18 08/07/19 09:13 71 08/07/19 07:17 36.8 C 69 16 08/07/19 01:00 37.1 C 92 H 18 08/07/19 00:01 94 H 20 119/91 08/07/19 00:00 97 H 23 08/06/19 23:30 102 H 22 08/06/19 23:01 96 H 18 08/06/19 23:00 102 H 23 131/91 08/06/19 22:30 95 H 22 108/87 08/06/19 22:11 97 H 14 143/69 H 08/06/19 21:49 114/67 08/06/19 21:30 56 L 22 08/06/19 21:00 60 20 118/76 08/06/19 20:51 57 L 17 08/06/19 20:30 64 23 127/59 L 08/06/19 20:24 36.9 C 112 H 19 146/92 H BP Pulse Ox 08/07/19 16:55 119/94 91 08/07/19 16:45 141/90 H 95 08/07/19 16:35 135/86 99 08/07/19 16:28 143/84 H 99 08/07/19 14:38 132/84 94 08/07/19 09:13 117/72 08/07/19 07:17 116/81 95 08/07/19 01:00 129/86 96 08/07/19 00:01 96 08/07/19 00:00 96 08/06/19 23:30 95 08/06/19 23:01 96 08/06/19 23:00 98 08/06/19 22:30 94 08/06/19 22:11 99 08/06/19 21:49 08/06/19 21:30 98 08/06/19 21:00 99 08/06/19 20:51 100 08/06/19 20:30 99 08/06/19 20:24 95 Pain Intensity Left Face: Pain Intensity: 3 Transfer of Care Handoff Completed per policy Notes Mental Status: alert / awake / arousable Patient Amnestic to Procedure: Yes Nausea / Vomiting: adequately controlled Pain: adequately controlled Airway Patency, RR, SpO2: stable & adequate BP & HR: stable & adequate Hydration State: stable & adequate Anesthetic Complications: no major complications apparent and Pt Satisfied with anesthetic care
[2019-08-07] MEDS: HYDROmorphone INJ 0.5 MG/0.5 ML SYR IV PRN (18:32)
--- NOTE | 2019-08-07 18:32 | Hospitalist Progress Note ---
Date of Service August 07, 2019 Assessment & Plan (1) Facial abscess: 1) Sepsis: Secondary to L facial/periorbital cellulitis secondary to sinusitis/maxillary abscess Failed outpatient Rx --Status post I&D today with Dr. León --Follow-up cultures --Continue Dapto and Zosyn chronic migraine on Namenda, at baseline mood disorder, at baseline Hyperglycemia secondary to insulin resistance, PCOS, recent steroid administration from last ER visit recent outpatient hemoglobin A1c of 5.31 October 2018 as per records hypothyroidism, euthyroid as of recent TSH DVT prophylaxis. Lovenox subcu--held in light of procedure Full code Subjective Follow-up for facial cellulitis and abscess Seen resting in bed, not in distress Still has pain on the affected side of the face, but improved with pain medication Denies shortness of breath, chest pain, palpitations No other symptoms Review of Systems Review of Systems: All systems reviewed & are unremarkable except as noted in HPI & below Physical Exam Physical Exam: General- oriented x 3, not in distress, speaks in sentences with no effort or accessory muscle use Head- atraumatic Positive swelling, erythema of the left side of face Eyes- PERRL, EOMI, anicteric ENT- oropharynx clear Neck- supple, no JVD, no adenopathy, no thyromegaly; carotids +2/2, no bruits appreciated Lungs- clear to auscultation bilaterally, no rales/wheezes Heart- normal rate, regular rhythm; no murmur, no gallop, no rub appreciated Abdomen- normal bowel sounds, nondistended, soft, nontender, no masses or hepatosplenomegaly Extremities- no pretibial edema, no calf tenderness; peripheral pulses intact Neuro- alert, oriented x 3; CN 2-12 grossly intact; motor 5/5 bilaterally;sensation 100% on all extremities; no other gross focal neurologic deficits Skin- warm & dry Results & Data Vital Signs (Past 12 Hours) Vital Signs Temp Pulse Pulse Pulse Resp BP Pulse Ox 08/07/19 17:53 37 C 72 16 160/106 H 97 08/07/19 17:25 37.1 C 72 16 123/69 95 08/07/19 17:05 36.4 C L 71 16 127/88 95 08/07/19 16:55 75 16 119/94 91 08/07/19 16:45 79 16 141/90 H 95 08/07/19 16:35 75 16 135/86 99 08/07/19 16:28 36.5 C 74 16 143/84 H 99 08/07/19 14:38 36.8 C 70 18 132/84 94 08/07/19 09:13 71 117/72 08/07/19 07:17 36.8 C 69 16 116/81 95 Laboratory Results Laboratory Results - last 24 hr 08/06/19 08/06/19 08/06/19 21:20 21:20 21:20 WBC 12.26 H RBC 4.30 Hgb 12.6 POC Hgb Hct 38.3 POC Hct MCV 89.1 MCH 29.3 MCHC 32.9 RDW Std Deviation 47.5 H RDW Coeff of [place] 14.6 H Plt Count 260 MPV 8.8 Immature Gran % (Auto) 0.6 Neut % (Auto) 70.0 Lymph % (Auto) 20.4 [place] % (Auto) 7.3 Eos % (Auto) 1.6 Baso % (Auto) 0.1 Immature Gran # (Auto) 0.07 H Neut # (Auto) 8.59 H Lymph # (Auto) 2.50 [place] # (Auto) 0.89 H Eos # (Auto) 0.20 Baso # (Auto) 0.01 POC Sodium Sodium 138 POC Potassium Potassium 3.5 POC Chloride Chloride 107 Carbon Dioxide 25 POC Total CO2 Anion Gap 6.0 POC Anion Gap POC BUN BUN 9 Creatinine 0.92 POC Creatinine Est Cr Clr Drug Dosing 98.6 Est GFR ( Amer) 90.9 Est GFR (Non-Af Amer) 78.4 BUN/Creatinine Ratio 10.1 Glucose 128 H POC Glucose (other) Estimat Average Glucose Hemoglobin A1c Lactate Calcium 9.0 POC Ioniz Calcium Walt Magnesium 1.8 Total Bilirubin 0.3 AST 10 L ALT 30 Alkaline Phosphatase 94 Total Protein 7.4 Albumin 3.5 Globulin 3.9 Albumin/Globulin Ratio 0.9 Lipase 78 HCG, Qual Negative Urine Color Urine Appearance Urine pH Ur Specific [place] Urine Protein Urine Glucose (UA) Urine Ketones Urine Blood Urine Nitrite Urine Bilirubin Urine Urobilinogen Ur Leukocyte Esterase Nasal Screen MRSA (PCR) 08/06/19 08/06/19 08/06/19 21:27 23:32 23:32 WBC RBC Hgb POC Hgb 12.2 Hct POC Hct 36 L MCV MCH MCHC RDW Std Deviation RDW Coeff of [place] Plt Count MPV Immature Gran % (Auto) Neut % (Auto) Lymph % (Auto) [place] % (Auto) Eos % (Auto) Baso % (Auto) Immature Gran # (Auto) Neut # (Auto) Lymph # (Auto) [place] # (Auto) Eos # (Auto) Baso # (Auto) POC Sodium 140 Sodium POC Potassium 3.5 Potassium POC Chloride 104 Chloride Carbon Dioxide POC Total CO2 24 Anion Gap POC Anion Gap 17.0 POC BUN 8 BUN Creatinine POC Creatinine 0.8 Est Cr Clr Drug Dosing Est GFR ( Amer) Est GFR (Non-Af Amer) BUN/Creatinine Ratio Glucose POC Glucose (other) 132 H Estimat Average Glucose 111 Hemoglobin A1c 5.5 Lactate 1.7 Calcium POC Ioniz Calcium Walt 1.13 Magnesium Total Bilirubin AST ALT Alkaline Phosphatase Total Protein Albumin Globulin Albumin/Globulin Ratio Lipase HCG, Qual Urine Color Urine Appearance Urine pH Ur Specific [place] Urine Protein Urine Glucose (UA) Urine Ketones Urine Blood Urine Nitrite Urine Bilirubin Urine Urobilinogen Ur Leukocyte Esterase Nasal Screen MRSA (PCR) 08/07/19 08/07/19 08/07/19 01:30 02:30 06:56 WBC 8.58 RBC 3.68 L Hgb 10.8 L POC Hgb Hct 33.1 L POC Hct MCV 89.9 MCH 29.3 MCHC 32.6 RDW Std Deviation 48.1 H RDW Coeff of [place] 14.6 H Plt Count 219 MPV 8.9 Immature Gran % (Auto) 0.3 Neut % (Auto) 63.7 Lymph % (Auto) 26.9 [place] % (Auto) 7.0 Eos % (Auto) 2.0 Baso % (Auto) 0.1 Immature Gran # (Auto) 0.03 H Neut # (Auto) 5.46 Lymph # (Auto) 2.31 [place] # (Auto) 0.60 H Eos # (Auto) 0.17 Baso # (Auto) 0.01 POC Sodium Sodium POC Potassium Potassium POC Chloride Chloride Carbon Dioxide POC Total CO2 Anion Gap POC Anion Gap POC BUN BUN Creatinine POC Creatinine Est Cr Clr Drug Dosing Est GFR ( Amer) Est GFR (Non-Af Amer) BUN/Creatinine Ratio Glucose POC Glucose (other) Estimat Average Glucose Hemoglobin A1c Lactate Calcium POC Ioniz Calcium Walt Magnesium Total Bilirubin AST ALT Alkaline Phosphatase Total Protein Albumin Globulin Albumin/Globulin Ratio Lipase HCG, Qual Urine Color Yellow Urine Appearance Clear Urine pH 5.0 Ur Specific [place] > 1.045 H Urine Protein Negative Urine Glucose (UA) Negative Urine Ketones Negative Urine Blood Negative Urine Nitrite Negative Urine Bilirubin Negative Urine Urobilinogen Negative Ur Leukocyte Esterase Negative Nasal Screen MRSA (PCR) Negative 08/07/19 06:56 WBC RBC Hgb POC Hgb Hct POC Hct MCV MCH MCHC RDW Std Deviation RDW Coeff of [place] Plt Count MPV Immature Gran % (Auto) Neut % (Auto) Lymph % (Auto) [place] % (Auto) Eos % (Auto) Baso % (Auto) Immature Gran # (Auto) Neut # (Auto) Lymph # (Auto) [place] # (Auto) Eos # (Auto) Baso # (Auto) POC Sodium Sodium 139 POC Potassium Potassium 3.7 POC Chloride Chloride 109 H Carbon Dioxide 24 POC Total CO2 Anion Gap 6.0 POC Anion Gap POC BUN BUN 9 Creatinine 0.82 POC Creatinine Est Cr Clr Drug Dosing 111.1 Est GFR ( Amer) 104.5 Est GFR (Non-Af Amer) 90.1 BUN/Creatinine Ratio 10.9 Glucose 91 POC Glucose (other) Estimat Average Glucose Hemoglobin A1c Lactate Calcium 8.2 L POC Ioniz Calcium Walt Magnesium Total Bilirubin AST ALT Alkaline Phosphatase Total Protein Albumin Globulin Albumin/Globulin Ratio Lipase HCG, Qual Urine Color Urine Appearance Urine pH Ur Specific [place] Urine Protein Urine Glucose (UA) Urine Ketones Urine Blood Urine Nitrite Urine Bilirubin Urine Urobilinogen Ur Leukocyte Esterase Nasal Screen MRSA (PCR)
[2019-08-07] MEDS: DULOXETINE HCL 30 MG CAP PO SCH (21:26)
[2019-08-07] MEDS: FOLIC ACID 400 MCG TAB PO SCH (21:26)
[2019-08-07] MEDS: TRAZODONE HCL 50 MG TAB PO SCH (21:26)
[2019-08-07] MEDS: MULTIVITAMIN TAB PO SCH (21:28)
[2019-08-07] MEDS: TIZANIDINE HCL 4 MG TABLET PO SCH (21:29)
[2019-08-07] MEDS: ACETAMINOPHEN 325 MG TAB PO PRN (21:33)
[2019-08-08] MEDS: HYDROmorphone INJ 0.5 MG/0.5 ML SYR IV PRN ×5 (00:15→23:15)
[2019-08-08] MEDS: PIPERACILLIN/TAZOBACTAM 4.5 GM in DEXTROSE 5% 100 ML IV SCH ×3 (02:30→17:00)
[2019-08-08] MEDS: ACETAMINOPHEN 325 MG TAB PO PRN ×2 (02:33→20:32)
[2019-08-08] MEDS: OXYCODONE HCL IR 5 MG TAB (IMMEDIATE RELEASE) PO PRN ×4 (06:21→21:14)
[2019-08-08] MEDS: LEVOTHYROXINE SODIUM 50 MCG TABLET PO SCH (06:21)
[2019-08-08] MEDS ORDERED: SODIUM CHLORIDE 0.65% NA SOLN 45 ML (OCEAN) STA (09:18)
--- NOTE | 2019-08-08 09:18 | Surgery Progress Note ---
Date of Service August 08, 2019 Assessment & Plan (1) Facial abscess: I can remove the packing on Saturday if she still here or she can be seen in my office for removal of the packing. (2) Chronic sinusitis: Will start saline nasal spray today and follow-up in my office. Subjective She has some swelling and numbness of both upper lips but is able to feel sensation and has tenderness of the left cheek and some bloody mucus from the sinus surgery Physical Exam ENMT: Nose: + nasal discharge (Expected amount of drainage) Has sensation to touch of the upper lips but is swollen especially over the left cheek with the iodoform gauze packing in place Results & Data Vital Signs (Past 12 Hours) Vital Signs Temp Pulse Resp BP Pulse Ox 08/08/19 06:06 36.8 C 88 19 134/88 94 08/08/19 03:13 36.7 C 64 19 117/79 93 08/07/19 23:33 36.7 C 69 20 101/67 91
[2019-08-08] MEDS: PANTOprazole 40 MG TAB PO SCH ×2 (09:30→20:20)
[2019-08-08] MEDS: DESIPRAMINE HCL 25 MG TAB PO SCH (09:31)
[2019-08-08] MEDS: MEMANTINE HCL 10 MG TAB PO SCH ×2 (09:31→17:00)
[2019-08-08] MEDS: PROPRANOLOL HCL 10 MG TAB PO SCH ×2 (09:32→20:20)
--- NOTE | 2019-08-08 10:14 | Anesthesiology Progress Note ---
Date of Service August 08, 2019 Anesthesia Post Procedure Vital Signs Vital Signs: Temp Pulse Pulse Resp BP Pulse Ox 08/08/19 06:06 36.8 C 88 19 134/88 94 08/08/19 03:13 36.7 C 64 19 117/79 93 08/07/19 23:33 36.7 C 69 20 101/67 91 08/07/19 20:27 36.5 C 79 17 153/106 H 96 08/07/19 19:20 36.7 C 75 18 148/98 H 95 08/07/19 18:26 36.9 C 75 16 164/108 H 98 08/07/19 17:53 37 C 72 16 160/106 H 97 08/07/19 17:25 37.1 C 72 16 123/69 95 08/07/19 17:05 36.4 C L 71 16 127/88 95 08/07/19 16:55 75 16 119/94 91 08/07/19 16:45 79 16 141/90 H 95 08/07/19 16:35 75 16 135/86 99 08/07/19 16:28 36.5 C 74 16 143/84 H 99 08/07/19 14:38 36.8 C 70 18 132/84 94 Notes Mental Status: alert / awake / arousable Patient Amnestic to Procedure: Yes Nausea / Vomiting: adequately controlled Pain: adequately controlled Airway Patency, RR, SpO2: stable & adequate BP & HR: stable & adequate Hydration State: stable & adequate Anesthetic Complications: no major complications apparent and Pt Satisfied with anesthetic care
--- NOTE | 2019-08-08 16:57 | Hospitalist Progress Note ---
Date of Service August 08, 2019 Assessment & Plan (1) Facial abscess: 1) Sepsis: Secondary to L facial/periorbital cellulitis secondary to sinusitis/maxillary abscess Failed outpatient Rx --Status post I&D with Dr. León -- Blood cultures: negative so far Wound culture: (+) Streptococcus species -- afebrile still has significant pain -- Continue Zosyn continue pain medications -- discussed with Dr. León chronic migraine on Namenda, at baseline mood disorder, at baseline Hyperglycemia secondary to insulin resistance, PCOS, recent steroid administration from last ER visit recent outpatient hemoglobin A1c of 5.31 October 2018 as per records hypothyroidism, euthyroid as of recent TSH DVT prophylaxis. Lovenox subcu--held in light of procedure SCDs, encouraged to frequent ambulation, patient agrees Full code Disposition anticipate d/c home with oral antibiotics when medically stable Subjective ff up for facial abscess, cellulitis seen resting in bed, not in distress states she still has pain on the left side of the face- improving no problems with eating denies fever/chills no chest pain, dyspnea no other symptoms Review of Systems Review of Systems: All systems reviewed & are unremarkable except as noted in HPI & below Physical Exam Physical Exam: General- oriented x 3, not in distress, speaks in sentences with no effort or accessory muscle use Face- moderate edema, mild erythema left cheek no trismus Eyes- anicteric Neck- no JVD Lungs- clear breath sounds bilaterally Heart- normal rate, regular rhythm; no murmurs Abdomen- normal bowel sounds, nondistended, soft, nontender Extremities- no pretibial edema, no calf tenderness Neuro- alert, oriented x 3; no gross focal neurologic deficits Skin- warm & dry Results & Data Vital Signs (Past 12 Hours) Vital Signs Temp Pulse Pulse Resp BP Pulse Ox 08/08/19 15:49 36.9 C 94 H 16 156/92 H 95 08/08/19 12:00 36.5 C 77 20 128/86 94 08/08/19 06:06 36.8 C 88 19 134/88 94
[2019-08-08] MEDS: SODIUM CHLORIDE 0.9% 1000ML 1,000 ML IV SCH (17:05)
[2019-08-08] MEDS: DULOXETINE HCL 30 MG CAP PO SCH (20:19)
[2019-08-08] MEDS: TRAZODONE HCL 50 MG TAB PO SCH (20:21)
[2019-08-08] MEDS: FOLIC ACID 400 MCG TAB PO SCH (20:21)
[2019-08-08] MEDS: MULTIVITAMIN TAB PO SCH (20:22)
[2019-08-08] MEDS: TIZANIDINE HCL 4 MG TABLET PO SCH (21:14)
[2019-08-09] MEDS: PIPERACILLIN/TAZOBACTAM 4.5 GM in DEXTROSE 5% 100 ML IV SCH ×3 (02:17→17:23)
[2019-08-09] MEDS: SODIUM CHLORIDE 0.9% 1000ML 1,000 ML IV SCH ×2 (05:45→17:19)
[2019-08-09] MEDS: LEVOTHYROXINE SODIUM 50 MCG TABLET PO SCH (06:11)
[2019-08-09] MEDS: DESIPRAMINE HCL 25 MG TAB PO SCH (09:32)
[2019-08-09] MEDS: MEMANTINE HCL 10 MG TAB PO SCH ×2 (09:32→16:10)
[2019-08-09] MEDS: PANTOprazole 40 MG TAB PO SCH ×2 (09:32→20:39)
[2019-08-09] MEDS: PROPRANOLOL HCL 10 MG TAB PO SCH ×2 (09:32→20:36)
[2019-08-09] MEDS: ACETAMINOPHEN 325 MG TAB PO PRN ×2 (13:11→20:42)
[2019-08-09] MEDS: OXYCODONE HCL IR 5 MG TAB (IMMEDIATE RELEASE) PO PRN (16:12)
--- NOTE | 2019-08-09 16:46 | Hospitalist Progress Note ---
Date of Service August 09, 2019 Assessment & Plan (1) Facial abscess: 1) Sepsis: Secondary to L facial/periorbital cellulitis secondary to sinusitis/maxillary abscess Failed outpatient Rx --Status post I&D with Dr. León -- Blood cultures: negative so far Wound culture: (+) Streptococcus species -- afebrile pain improving -- Continue Zosyn continue pain medications -- plan for removal of packing tomorrow d/c on Augmentin x 7 days chronic migraine on Namenda, at baseline mood disorder, at baseline Hyperglycemia secondary to insulin resistance, PCOS, recent steroid administration from last ER visit recent outpatient hemoglobin A1c of 5.31 October 2018 as per records hypothyroidism, euthyroid as of recent TSH DVT prophylaxis. Lovenox subcu--held in light of procedure SCDs, encouraged to frequent ambulation, patient agrees Full code Disposition anticipate d/c home with oral antibiotics tomorrow Subjective ff up for facial abscess, cellulitis seen resting in bed, comfortable states pain is improving no bleeding, no trismus no fever/chills no other symptoms Review of Systems Review of Systems: All systems reviewed & are unremarkable except as noted in HPI & below Physical Exam Physical Exam: General- oriented x 3, not in distress, speaks in sentences with no effort or accessory muscle use Face- less edema, erythema , tenderness on the left cheek Eyes- anicteric Neck- no JVD Lungs- clear breath sounds , no crackles, no wheezing Heart- normal rate, regular rhythm; no murmurs Abdomen- normal bowel sounds, nondistended, soft, nontender Extremities- no pretibial edema, no calf tenderness Neuro- alert, oriented x 3; no gross focal neurologic deficits Skin- warm & dry Results & Data Vital Signs (Past 12 Hours) Vital Signs Temp Pulse Resp BP Pulse Ox 08/09/19 15:00 37.1 C 74 16 118/78 92 08/09/19 08:23 36.7 C 68 18 121/77 93
[2019-08-09] MEDS: TRAZODONE HCL 50 MG TAB PO SCH (20:36)
[2019-08-09] MEDS: MULTIVITAMIN TAB PO SCH (20:38)
[2019-08-09] MEDS: DULOXETINE HCL 30 MG CAP PO SCH (20:38)
[2019-08-09] MEDS: FOLIC ACID 400 MCG TAB PO SCH (20:38)
[2019-08-09] MEDS: TIZANIDINE HCL 4 MG TABLET PO SCH (20:38)
[2019-08-10] MEDS: PIPERACILLIN/TAZOBACTAM 4.5 GM in DEXTROSE 5% 100 ML IV SCH (02:26)
[2019-08-10] MEDS: SODIUM CHLORIDE 0.9% 1000ML 1,000 ML IV SCH (05:22)
[2019-08-10] MEDS: LEVOTHYROXINE SODIUM 50 MCG TABLET PO SCH (06:11)
[2019-08-10 06:50] LABS: Creatinine Clr Calc Pharmacy 112.5 ml/min; Est GFR (Non-African American) 91.5
--- NOTE | 2019-08-10 07:43 | Anesthesiology Progress Note ---
Date of Service August 10, 2019 Anesthesia Post Procedure Vital Signs Vital Signs: Temp Pulse Resp BP Pulse Ox Pulse Ox 08/09/19 23:45 96 08/09/19 23:15 36.8 C 71 18 122/82 96 08/09/19 15:00 37.1 C 74 16 118/78 92 08/09/19 08:23 36.7 C 68 18 121/77 93 Pain Intensity Left Face: Pain Intensity: 0 Notes Mental Status: alert / awake / arousable and participated in evaluation Patient Amnestic to Procedure: Yes Nausea / Vomiting: adequately controlled Pain: adequately controlled Airway Patency, RR, SpO2: stable & adequate BP & HR: stable & adequate Hydration State: stable & adequate Anesthetic Complications: no major complications apparent and Pt Satisfied with anesthetic care
[2019-08-10] MEDS: DESIPRAMINE HCL 25 MG TAB PO SCH (08:34)
[2019-08-10] MEDS: PANTOprazole 40 MG TAB PO SCH (08:34)
[2019-08-10] MEDS: MEMANTINE HCL 10 MG TAB PO SCH (08:35)
[2019-08-10] MEDS: PROPRANOLOL HCL 10 MG TAB PO SCH (08:35)
[2019-08-10 08:50] LABS: BUN Creatinine Ratio 10.3 (10-20); Calcium 8.7 mg/dl (8.5-10.1); Creatinine Clr Calc Pharmacy 109.8 ml/min; Est GFR (Non-African American) 88.8; Potassium 3.8 mmol/L (3.5-5.1)
[2019-08-10 08:53] LABS: Basophils # (auto) 0.01 K/uL (0-0.2); Basophils % (auto) 0.1 %; Eosinophils # (auto) 0.25 K/uL (0-0.5); Eosinophils % (auto) 3.7 %; Hematocrit (blood only) 32.4 % (37-47); Hemoglobin 10.6 g/dL (12.0-16.0); Immature Granulocytes # (auto) 0.02 K/uL (0.00-0.02); Immature Granulocytes % (auto) 0.3 %; Lymphocytes # (auto) 1.98 K/uL (1.2-3.4); Lymphocytes % (auto) 29.1 %; Mean Corpuscular Hgb Conc 32.7 g/dL (32-36); Mean Corpuscular Volume 88.5 fL (80-100); Mean Platelet Volume 8.9 fL (7.4-10.4); Monocytes # (auto) 0.58 K/uL (0.11-0.59); Monocytes % (auto) 8.5 %; Neutrophils # (auto) 3.96 K/uL (1.4-6.5); Neutrophils % (auto) 58.3 %; Platelet Count 206 K/uL (130-400); RDW Coefficient of Variation 14.1 % (11.5-14.5); RDW Standard Deviation 45.1 fL (36.4-46.3); Red Blood Count 3.66 M/uL (4.2-5.4)
[2019-08-10] MEDS ORDERED: AMOXICILLIN/CLAVULANATE 875 MG TAB PO SCH (09:30)
--- NOTE | 2019-08-10 10:23 | Hospitalist Progress Note ---
Date of Service August 10, 2019 Assessment & Plan (1) Facial abscess: 1) Sepsis: Secondary to L facial/periorbital cellulitis secondary to sinusitis/maxillary abscess Failed outpatient Rx -- Status post I&D with Dr. León -- Blood cultures: negative so far Wound culture: (+) Streptococcus species -- remained afebrile pain significantly improved -- received Zosyn -- discussed with Dr. León- ok for discharge today, ff up in his office today for removlal of packing d/c on Augmentin x 7 days -- patient prefers Tylenol PRN Chronic migraine on Namenda, at baseline Mood disorder, at baseline Hyperglycemia secondary to insulin resistance, PCOS, recent steroid administration from last ER visit recent outpatient hemoglobin A1c of 5.31 October 2018 as per records -- repeat a1c 5.5 Hypothyroidism, euthyroid as of recent TSH Disposition D/C home ff up with Dr. León today after discharge ff up with PCP this week Subjective ff up for facial abscess, cellulitis seen resting in bed, comfortable in good spirits states she feels much better today minimal facial pain, no problems with opening her mouth, swallowing no shortness of breath, chest pain, palpitations, dizziness no other symptoms Review of Systems Review of Systems: All systems reviewed & are unremarkable except as noted in HPI & below Physical Exam Physical Exam: General- oriented x 3, not in distress, speaks in sentences with no effort or accessory muscle use Eyes- anicteric Face-mild edema, but no erythema/warmth/tenderness on the left cheek essentially normal buccal exam Neck- no JVD Lungs- clear breath sounds, no rales/wheezing BL Heart- normal rate, regular rhythm; no murmurs Abdomen- normal bowel sounds, nondistended, soft, nontender Extremities- no pretibial edema, no calf tenderness Neuro- alert, oriented x 3; no gross focal neurologic deficits Skin- warm & dry Results & Data Vital Signs (Past 12 Hours) Vital Signs Temp Pulse Resp BP Pulse Ox Pulse Ox 08/10/19 07:46 36.7 C 64 16 131/86 97 08/09/19 23:45 96 08/09/19 23:15 36.8 C 71 18 122/82 96 Laboratory Results Laboratory Results - last 24 hr 08/10/19 08/10/19 08/10/19 05:54 05:59 05:59 WBC 6.80 RBC 3.66 L Hgb 10.6 L Hct 32.4 L MCV 88.5 MCH 29.0 MCHC 32.7 RDW Std Deviation 45.1 RDW Coeff of [place] 14.1 Plt Count 206 MPV 8.9 Immature Gran % (Auto) 0.3 Neut % (Auto) 58.3 Lymph % (Auto) 29.1 [place] % (Auto) 8.5 Eos % (Auto) 3.7 Baso % (Auto) 0.1 Immature Gran # (Auto) 0.02 Neut # (Auto) 3.96 Lymph # (Auto) 1.98 [place] # (Auto) 0.58 Eos # (Auto) 0.25 Baso # (Auto) 0.01 Sodium 139 Potassium 3.8 Chloride 107 Carbon Dioxide 26 Anion Gap 6.0 BUN 9 Creatinine 0.81 0.83 Est Cr Clr Drug Dosing 112.5 109.8 Est GFR ( Amer) 106.0 103.0 Est GFR (Non-Af Amer) 91.5 88.8 BUN/Creatinine Ratio 10.3 Glucose 109 H Calcium 8.7
--- NOTE | 2019-08-10 10:32 | Discharge Summary ---
Date of Service August 10, 2019 Admission HPI Per Admitting Provider History is obtained from the patient, family, and records. Medical history significant for chronic migraine on Namenda, mood disorder, PCOS, insulin resistance as per records, hypothyroidism, gastroparesis. Recent confinement last December 2017 for atypical chest pain. Patient seen at the ER 3 days ago for left-sided facial pain and left cheek swelling. Denies tooth ache, sinus congestion symptoms. Low-grade fever at home as per patient. Possible allergic reaction as per patient. Decadron given at the ER. Patient discharged on Augmentin, tramadol prescription. Progressive swelling noted despite compliance with Rx for about 2 days. Patient had follow-up at PCP's office yesterday. Outpatient facial CT recommended. Imaging done yesterday showed : 1. Left periorbital soft tissue edema, consistent with preseptal cellulitis 2. No evidence of post septal inflammatory change 3. Left maxillary sinus mucosal thickening PCP recommended switching antibiotic Rx to Doxycycline Rx. Worsening left facial swelling with chills after 1 dose of antibiotic. Usual migraine headache. Some left eye discomfort. Vision somewhat blurred in the left eye due to swelling as per patient. Patient received Levaquin, vancomycin, and Zosyn at the ER for sepsis. MEDICAL HISTORY: As above. SURGERIES: Cholecystectomy, sinus surgery. Eye surgery FAMILY HISTORY: Diabetes, heart disease. 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, disabled Admission Exam Per Admitting Provider GENERAL: Slightly uncomfortable, anxious, obese, no respiratory distress SKIN: Normal color, warm HEENT: Left facial swelling extended to the left periorbital area, pink palpebral conjunctivae, no EOM entrapment, dry buccal mucosa NECK : Supple, short neck, no tenderness CHEST : CTA, no tenderness HEART : Tachycardic, no obvious murmurs ABDOMEN: Some distention, nontender EXTREMITIES : Minimal LE swelling, no LE tenderness, no other conspicuous deformities noted NEUROLOGIC : Coherent, no facial asymmetry, no other gross focality Principal Diagnosis MAXILLARY ABSCESS AND FACIAL CELLULITIS Discharge Exam General- oriented x 3, not in distress, speaks in sentences with no effort or accessory muscle use Eyes- anicteric Face-mild edema, but no erythema/warmth/tenderness on the left cheek essentially normal buccal exam Neck- no JVD Lungs- clear breath sounds, no rales/wheezing BL Heart- normal rate, regular rhythm; no murmurs Abdomen- normal bowel sounds, nondistended, soft, nontender Extremities- no pretibial edema, no calf tenderness Neuro- alert, oriented x 3; no gross focal neurologic deficits Skin- warm & dry Discharge Data Allergies Allergy/AdvReac Type Severity Reaction Status Date / Time morphine Allergy Severe Hives,itchiness,nausea Verified 08/06/19 22:31 and vomiting topiramate Allergy Severe neurological Verified 08/06/19 22:31 symptoms cephalexin Allergy Mild rash Verified 08/06/19 22:31 Consultations 08/06/19 22:22 ED Decision to Admit Stat 08/06/19 22:30 Consult Otolaryngology (Head and Neck) Stat Procedures Performed Operation Date: 08/07/19 12:45 Actual Procedures p Endoscopic Sinus Surgery(Bilateral) - Yoanna León MD s Left Cheek Incision and Drainage(Left) - Yoanna León MD Ordered Studies 08/06/19 20:55 CT facial bones w con Stat CT SCAN OF THE FACIAL BONES WITH IV CONTRAST CLINICAL HISTORY: Facial cellulitis. COMPARISON STUDY: CT of the facial bones dated 08/05/2019. TECHNIQUE: High-resolution CT scan of the facial bones is performed following the IV administration of 93 cc of Optiray 320. Images are reviewed in the axial, sagittal, and coronal planes. IV contrast was administered without complication. A dose lowering technique was utilized adhering to the principles of ALARA. CT DOSE: 149.05 mGy.cm FINDINGS: There is left periorbital and supraorbital soft tissue edema with overlying dermal thickening consistent with the reported history of cellulitis. This is similar appearance to yesterday. There is unchanged to slightly increased premalar soft tissue edema from yesterday. There is a 1.4 x 1.2 x 0.6 cm peripherally enhancing fluid collection seen superficial to the inferior aspect of the maxillary antrum on image #127. There is no underlying periodontal disease identified. The skeletal structures are well mineralized. There is no evidence of facial bone fracture. The bony orbits are intact and the orbital contents are within normal limits. The zygomatic arches, nasal bones, and pterygoid plates are preserved. The maxilla and mandible are intact. There are no layering blood products within the paranasal sinuses. There is evidence of previous paranasal sinus surgery. There is moderate mucosal thickening within the left maxillary antrum. Trace mucosal thickening is noted in the right maxillary antrum and the left sphenoid sinus. The remaining paranasal sinuses are clear. The mastoid air cells are well pneumatized. The visualized calvarium and upper cervical spine are maintained. Partially imaged brain parenchyma is within normal limits. The carotid arteries and jugular veins are patent bilaterally. Prominent left cervical lymph nodes are likely on a reactive basis. IMPRESSION: 1. Left periorbital soft tissue edema is unchanged from yesterday and consistent with the reported history of preseptal/facial cellulitis. 2. Orbital contents are normal in appearance. There is no evidence of orbital cellulitis. 3. There is unchanged to slightly increased premalar soft tissue edema as compared to yesterday. There is a 1.4 cm peripherally enhancing fluid collection seen superficial to the inferior aspect of the left maxillary antrum. This is consistent with abscess. 4. There is no underlying periodontal disease identified. 5. No facial bone abnormality is seen. Hospital Course (1) Facial abscess: Sepsis: Secondary to L facial/periorbital cellulitis secondary to sinusitis/maxillary abscess -- Failed outpatient Rx -- Status post I&D with Dr. León -- Blood cultures: negative so far Wound culture: (+) Alpha Streptococcus species, not pneumoniae or enterococcus -- remained afebrile pain significantly improved -- received Zosyn -- discussed with Dr. León- carolin for discharge today, ff up in his office today for removal of packing d/c on Augmentin x 7 days -- patient prefers Tylenol PRN Chronic migraine on Namenda, at baseline Mood disorder, at baseline Hyperglycemia secondary to insulin resistance, PCOS, recent steroid administration from last ER visit recent outpatient hemoglobin A1c of 5.31 October 2018 as per records -- repeat a1c 5.5 Hypothyroidism, euthyroid as of recent TSH Disposition D/C home ff up with Dr. León today after discharge ff up with PCP this week Total Time Total Time Spent Total Time Spent (In Minutes): 35 MINUTES Discharge Plan Discharge Items Patient Disposition: Home - Self-Care Reason For Visit: SEPSIS Discharge Diagnosis: FACIAL ABSCESS AND CELLULITIS Activity: Resume your previous activity Driving/Machine Use: NO DRIVING UNTIL RE-EVALUATED BY PRIMARY CARE PHYSICIAN Non-emergency contact: Primary Care Provider and Surgeon Call non-emergency contact if: you have any medication questions, your symptoms worsen, your pain is not controlled, your pain is worsening, your pain is unusual for you and your pain is concerning for you Follow-up/Referrals: Yoanna León MD [Surgeon] - Melania Zhou DO [Primary Care Provider] - Diet: Regular Addtl Attending Provider Instructions: PLEASE FOLLOW UP WITH DR. LEÓN TODAY FOR REMOVAL OF PACKING. CALL DR. LEÓN OR PRIMARY CARE PHYSICIAN, OR RETURN TO THE ER IMMEDIATELY IF WITH WORSENING OF SYMPTOMS, FEVERS/CHILLS, INCREASING PAIN/SWELLING/REDNESS. FOLLOW UP WITH PRIMARY CARE PHYSICIAN IN 1 WEEK. PLEASE REVIEW YOUR NEW MEDICATION LIST AND FOLLOW INSTRUCTIONS CAREFULLY. TAKE A PROBIOTIC FOR AT LEAST 2 WEEKS. DRINK PLENTY OF WATER. DO NOT TAKE MORE THAN 3,000MG OF TYLENOL PER DAY. Pending Studies at Discharge: No Stand-Alone Forms: My [facility] [employer], Smoking Cessation Medications and DC Order Prescriptions: Continued baclofen 20 mg tablet 20 mg PO DAILY PRN (Reason: Headache/Neck Pain) RF: 0 metformin 500 mg tablet 500 mg PO BIDM RF: 0 trazodone 50 mg tablet 50 mg PO HS RF: 0 tizanidine 4 mg tablet 4 - 8 mg PO HS RF: 0 potassium chloride [Klor-Con 10] 10 mEq tablet extended release 10 meq PO HS RF: 0 folic acid 400 mcg tablet 400 mcg PO HS RF: 0 levothyroxine 50 mcg tablet 50 mcg PO QAM RF: 0 pantoprazole 40 mg tablet,delayed release (DR/EC) 40 mg PO BID RF: 0 promethazine 25 mg tablet 25 mg PO Q6H PRN (Reason: Nausea) RF: 0 ergocalciferol (vitamin D2) 50,000 unit capsule 50,000 units PO MORALES RF: 0 memantine 10 mg tablet 10 mg PO BIDM RF: 0 duloxetine 30 mg capsule,delayed release(DR/EC) 90 mg PO HS RF: 0 fluticasone propionate [Flonase Allergy Relief] 50 mcg/actuation [place],Suspension 2 spray INTRANASAL BID PRN (Reason: Allergy Symptoms) RF: 0 zolmitriptan 5 mg Tablet 2.5 - 5 mg PO BID PRN (Reason: Migraine Headache) RF: 0 magnesium gluconate [Mag-G] 27 mg magnesium (500 mg) tablet 125 mg PO DAILY RF: 0 Ajovy 225 mg/1.5 mL syringe 225 mg subcut MO RF: 0 desipramine 25 mg tablet 25 mg PO DAILY RF: 0 cetirizine 10 mg Tablet 10 mg PO QAM RF: 0 albuterol sulfate 90 mcg/actuation HFA aerosol inhaler 2 puff inhalation Q6H PRN (Reason: Wheezing) RF: 0 pindolol 5 mg tablet 5 mg PO BID RF: 0 Linzess 145 mcg Capsule 145 mcg PO DAILY PRN (Reason: Constipation) RF: 0 multivitamin Tablet,Chewable 1 tab PO HS RF: 0 Emgality Pen 120 mg/mL pen injector 1 mg SUBCUT UD RF: 0 amoxicillin-pot clavulanate [Augmentin] 875-125 mg tablet 1 tab PO Q12H 7 Days Qty: 14 RF: 0 Discharge Orders: Discharge Order (Routine); Ordered 08/10/19 Ordered By: Pedro Pineda Admission Data Admit Date/Time: 08/06/19 23:15 Attending Provider: Pedro Pineda Admit Provider: Escobar Holland Primary Care Provider: Melania Zhou Other Providers: Escobar Holland ; Yoanna León
== END 2019-08-10 12:16 | disposition home or self-care (01) | DRG 854 ==
LOC: ED 19:55 → 3N 23:15

== ENCOUNTER 2020-11-13 22:56 | Inpatient (IN) ==
[2020-11-13] MEDS ORDERED: SODIUM CHLORIDE 0.9% 1000ML 1,000 ML IV SCH (23:15)
--- NOTE | 2020-11-13 23:19 | Emergency Department Note ---
History of Present Illness General Chief complaint: Fever Stated complaint: FEVER Time Seen by Provider: 11/13/20 23:05 History of Present Illness Maximum Pain Intensity: 8 This 40-year-old presents to the ER complaining of fever who had a hemorrhoid surgery on at [place] Location: Generalized Quality: Feverish Severity: Moderate Duration: Past few days Timing: Started the other day Context: Patient was concerned and came in Modifying factors: better with Tylenol; worse with going the bathroom Patient states she called her GI doctor and was advised to go to the ER. T-max 100.1. Patient complains of rectal discomfort. Patient denies chest pain, dyspnea, cough, congestion, vomiting, diarrhea, flulike illness. She states she has some urinary discomfort once but that is cleared up. Patient has been taking Tylenol and Motrin for the fever. Last dose was at 7 PM. Home Medications Medication Instructions Recorded Confirmed Type baclofen 20 mg PO UD PRN 06/06/18 11/13/20 History duloxetine 90 mg PO DAILY 06/06/18 11/13/20 History fluticasone propionate [Flonase 2 spray INTRANASAL BID PRN 06/06/18 11/14/20 History Allergy Relief] folic acid 400 mcg PO HS 06/06/18 11/14/20 History levothyroxine 50 mcg PO QAM 06/06/18 11/14/20 History memantine 10 mg PO BIDM 06/06/18 11/14/20 History pantoprazole 40 mg PO BID 06/06/18 11/13/20 History potassium chloride 10 meq PO HS 06/06/18 11/14/20 History promethazine 25 mg PO Q6H PRN 06/06/18 11/13/20 History tizanidine 4 - 8 mg PO HS 06/06/18 11/13/20 History trazodone 100 mg PO HS 06/06/18 11/13/20 History zolmitriptan 2.5 - 5 mg PO BID PRN 06/06/18 11/13/20 History albuterol sulfate 2 puff INHALATION Q6H PRN 02/17/19 11/14/20 History cetirizine 10 mg PO QAM 02/17/19 11/14/20 History magnesium gluconate [Mag-G] 125 mg PO HS 05/19/19 11/14/20 History Emgality Pen 120 mg SUBCUT MONTHLY 08/03/19 11/13/20 History clonidine HCl 0.1 mg PO BID 02/18/20 11/14/20 History diphenoxylate-atropine 1 tab PO QID PRN 02/18/20 11/14/20 History hydroxyzine HCl 25 mg PO QAM 02/18/20 11/14/20 History multivitamin with minerals 1 tab PO HS 09/10/20 11/14/20 History oxycodone [Roxicodone] 5 mg PO Q6H PRN #12 tab 11/01/20 11/13/20 Rx desipramine 25 mg PO DAILY 11/13/20 11/13/20 History gabapentin 300 mg PO UD 11/13/20 11/14/20 History pindolol 5 mg PO UD 11/13/20 11/13/20 History prednisone 10 mg PO UD 11/13/20 11/13/20 History ergocalciferol (vitamin D2) 1,250 mcg PO WK 11/14/20 11/14/20 History [Vitamin D2] Allergies Allergy/AdvReac Type Severity Reaction Status Date / Time morphine Allergy Severe Hives,itchiness,nausea Verified 09/10/20 19:45 and vomiting topiramate Allergy Severe neurological Verified 09/10/20 19:45 symptoms cephalexin Allergy Mild rash Verified 09/10/20 19:45 Past Med/Surg History Medical History (Updated 11/14/20 @ 01:27 by Aby Gonzales PA-C) Barretts esophagus Chronic neck pain Deafness in right ear Degenerative disc disease Depression Gastroparesis High blood pressure History of bronchitis inhaler prn Hypothyroidism Insulin resistance Migraine Obesity Surgical History H/O sinus surgery x2--recent on 08/2019 History of colonoscopy History of esophagogastroduodenoscopy (EGD) History of eye surgery x2 on right History of tooth extraction History of wisdom tooth extraction S/P cholecystectomy Family History Mother Family history of reaction to anesthesia after 2 hours afer breast cancer sx "her lungs started filling up with fluid" per pt was told it was d/t anesthesia Grandfather (Paternal) Family history of diabetes mellitus Other Cancer Diabetes Heart disease Hypertension Lung disease Seizure Social History Smoking Status: Never smoker Second Hand Exposure: Yes (parents smoked); Hx Alcohol Use: No Hx Substance Use: No Preferred Language: Maori 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 Ability: Effective 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 Required: No Beliefs That Will Affect Care: None marital status: Current Living Situation: Significant Other current occupational status: disabled Feels Safe at Home: Yes Assistive Devices: Glasses Review of Systems A total of 10 systems reviewed and were otherwise negative Physical Exam Vital Signs Vital Signs - 24 hr 11/13/20 23:00 11/13/20 23:33 11/13/20 23:44 Temperature 37.2 C Temperature Source Oral Pulse Rate 90 88 88 Pulse Rate from SpO2 Sensor 89 89 Respiratory Rate 20 17 15 Respiratory Effort / Characteristics Non-Labored Respiratory Depth Normal Blood Pressure 153/91 H 137/103 H 135/93 Blood Pressure Mean 111 114 107 Pulse Oximetry 98 95 96 Oxygen Delivery Method Room Air Sepsis Recent Fever Within 48 Hours No Sepsis New/Unexplained Change in Mental Status N/A Sepsis Action Taken by Nursing No Action Required 11/13/20 23:45 11/13/20 23:46 11/14/20 00:00 Temperature Temperature Source Pulse Rate 86 88 94 H Pulse Rate from SpO2 Sensor 86 88 Respiratory Rate 27 H 20 17 Respiratory Effort / Characteristics Respiratory Depth Blood Pressure 141/98 H 132/83 Blood Pressure Mean 112 99 Pulse Oximetry 95 95 Oxygen Delivery Method Sepsis Recent Fever Within 48 Hours Sepsis New/Unexplained Change in Mental Status Sepsis Action Taken by Nursing 11/14/20 00:24 11/14/20 00:30 11/14/20 00:31 Temperature Temperature Source Pulse Rate 88 83 86 Pulse Rate from SpO2 Sensor 89 83 86 Respiratory Rate 20 20 19 Respiratory Effort / Characteristics Respiratory Depth Blood Pressure 157/103 H 138/86 Blood Pressure Mean 121 103 Pulse Oximetry 95 95 95 Oxygen Delivery Method Sepsis Recent Fever Within 48 Hours Sepsis New/Unexplained Change in Mental Status Sepsis Action Taken by Nursing 11/14/20 00:45 11/14/20 01:00 Temperature Temperature Source Pulse Rate 79 77 Pulse Rate from SpO2 Sensor 79 77 Respiratory Rate 17 22 Respiratory Effort / Characteristics Respiratory Depth Blood Pressure 124/66 Blood Pressure Mean 85 Pulse Oximetry 95 97 Oxygen Delivery Method Sepsis Recent Fever Within 48 Hours Sepsis New/Unexplained Change in Mental Status Sepsis Action Taken by Nursing VITALS: Vitals are noted on the nurse's note and reviewed by myself. Vital signs stable. GENERAL: Pleasant female, in no acute distress, nondiaphoretic, well-developed well-nourished. SKIN: The skin was without rashes, erythema, edema, or bruising. There is no tenting of the skin. Capillary reflex less than 2 seconds. HEAD: Normocephalic atraumatic. EARS: External auditory canals clear EYES: Pupils equal round and reactive to light and accommodation. Conjunctivae without injection, sclerae without icterus. Extraocular movements intact. NOSE: Patent, turbinates without inflammation or discharge. MOUTH: Mucous membranes moist. Pharynx without erythema or exudate. Uvula midline. Airway patent. Tongue does not deviate. NECK: Supple without nuchal rigidity. No lymphadenopathy. No thyromegaly. Cervical spine is nontender. No JVD. HEART: Regular rate and rhythm without murmurs gallops or rubs. LUNGS: Clear to auscultation bilaterally without wheezes, rales or rhonchi. No retractions or accessory muscle use. ABDOMEN: Positive bowel sounds x 4. Normal tympanic percussion. Soft, nontender, without masses or organomegaly. Fabian sign negative. No guarding or rebound tenderness. No CVA tenderness Rectal exam: Mild bruising present from recent surgery, tender to palpation, no palpable abscess. MUSCULOSKELETAL: No muscle atrophy, erythema, or edema noted. NEURO: Patient was alert and oriented to person place and time. Normal sensation to light and sharp touch. No focal neurological deficits. Course Administered Medications Discontinued Medications Sodium Chloride (Nss 1000ml) 1,000 mls @ 999 mls/hr IV .Q1H1M ALVAREZ Stop: 11/14/20 00:15 Last Infusion: 11/14/20 01:01 Dose: 0 mls/hr Documented by: [id number] Admin: 11/13/20 23:38 Dose: 999 mls/hr Documented by: [id number] Piperacillin Sod/Tazobactam Sod (Zosyn) 4.5 gm in 120 mls @ 240 mls/hr IV NOW ONE Stop: 11/14/20 00:17 Last Infusion: 11/14/20 01:01 Dose: 0 mls/hr Documented by: [id number] Admin: 11/14/20 00:21 Dose: 240 mls/hr Documented by: [id number] Sodium Chloride (Nss 1000ml) 1,000 mls @ 999 mls/hr IV .Q1H1M ONE Stop: 11/14/20 01:21 Last Admin: 11/14/20 01:03 Dose: 999 mls/hr Documented by: [id number] Acetaminophen (Ofirmev) 1,000 mg in 100 mls @ 400 mls/hr IV NOW STA Stop: 11/14/20 00:47 Last Infusion: 11/14/20 01:03 Dose: 0 mls/hr Documented by: [id number] Admin: 11/14/20 00:00 Dose: 400 mls/hr Documented by: [id number] Lorazepam (Ativan) 1 mg in 2 mls @ 2 mls/min IV NOW STA Stop: 11/14/20 01:09 Last Admin: 11/14/20 01:31 Dose: 2 mls/min Documented by: [id number] Ioversol (Ioversol 100ml) 100 ml IV ONCE ONE Stop: 11/14/20 00:20 Last Admin: 11/14/20 00:19 Dose: 92 ml Documented by: [id number] Medical Decision Making Medical Records Attestation: I reviewed the patient's medical records. Home Medications Current Medication List: was personally reviewed by me Laboratory Data Attestation: I reviewed the patient's lab results. Result diagrams: 11/13/20 23:20 11/13/20 23:20 Lab Results 11/13/20 11/13/20 11/13/20 Range/Units 23:20 23:20 23:20 WBC 18.42 H (4.8-10.8) K/uL RBC 4.50 (4.2-5.4) M/uL Hgb 13.2 (12.0-16.0) g/dL Hct 39.9 (37-47) % MCV 88.7 (80-100) fL MCH 29.3 (25-34) pg MCHC 33.1 (32-36) g/dL RDW Std Deviation 46.3 (36.4-46.3) fL RDW Coeff of Cameron 14.1 (11.5-14.5) % Plt Count 408 H (130-400) K/uL MPV 9.3 (7.4-10.4) fL Immature Gran % (Auto) 0.9 % Neut % (Auto) 88.1 % Lymph % (Auto) 6.5 % Warrick % (Auto) 4.1 % Eos % (Auto) 0.3 % Baso % (Auto) 0.1 % Neut # (Auto) 16.25 H (1.4-6.5) K/uL Lymph # (Auto) 1.19 L (1.2-3.4) K/uL Warrick # (Auto) 0.76 H (0.11-0.59) K/uL Eos # (Auto) 0.05 (0-0.5) K/uL Baso # (Auto) 0.01 (0-0.2) K/uL Immature Gran # (Auto) 0.16 H (0.00-0.02) K/uL PT 9.4 (9.0-12.0) Seconds INR 0.9 (0.9-1.1) APTT 23.1 (21.0-31.0) Seconds PTT Ratio 0.9 Sodium (136-145) mmol/L Potassium (3.5-5.1) mmol/L Chloride (98-107) mmol/L Carbon Dioxide (21-32) mmol/L Anion Gap (3-11) BUN (7-18) mg/dl Creatinine (0.6-1.2) mg/dl Est Cr Clr Drug Dosing ml/min Est GFR ( Amer) Est GFR (Non-Af Amer) BUN/Creatinine Ratio (10-20) Glucose (70-99) mg/dl Lactate (0.4-2.0) mmol/L Calcium (8.5-10.1) mg/dl Magnesium (1.8-2.4) mg/dl Total Bilirubin (0.2-1) mg/dl AST (15-37) U/L ALT (12-78) U/L Alkaline Phosphatase (45-117) U/L Total Protein (6.4-8.2) gm/dl Albumin (3.4-5.0) gm/dl Globulin (2.5-4.0) gm/dl Albumin/Globulin Ratio (0.9-2) HCG, Qual Negative (Negative) Urine Color Urine Appearance (Clear) Urine pH (4.5-7.5) Ur Specific [place] (1.000-1.030) Urine Protein (Negative) Urine Glucose (UA) (Negative) Urine Ketones (Negative) Urine Blood (Negative) Urine Nitrite (Negative) Urine Bilirubin (Negative) Urine Urobilinogen (Negative) Ur Leukocyte Esterase (Negative) 11/13/20 11/13/20 11/13/20 Range/Units 23:20 23:20 23:25 WBC (4.8-10.8) K/uL RBC (4.2-5.4) M/uL Hgb (12.0-16.0) g/dL Hct (37-47) % MCV (80-100) fL MCH (25-34) pg MCHC (32-36) g/dL RDW Std Deviation (36.4-46.3) fL RDW Coeff of Cameron (11.5-14.5) % Plt Count (130-400) K/uL MPV (7.4-10.4) fL Immature Gran % (Auto) % Neut % (Auto) % Lymph % (Auto) % [place] % (Auto) % Eos % (Auto) % Baso % (Auto) % Neut # (Auto) (1.4-6.5) K/uL Lymph # (Auto) (1.2-3.4) K/uL Warrick # (Auto) (0.11-0.59) K/uL Eos # (Auto) (0-0.5) K/uL Baso # (Auto) (0-0.2) K/uL Immature Gran # (Auto) (0.00-0.02) K/uL PT (9.0-12.0) Seconds INR (0.9-1.1) APTT (21.0-31.0) Seconds PTT Ratio Sodium 138 (136-145) mmol/L Potassium 4.8 (3.5-5.1) mmol/L Chloride 103 (98-107) mmol/L Carbon Dioxide 27 (21-32) mmol/L Anion Gap 8.0 (3-11) BUN 12 (7-18) mg/dl Creatinine 1.21 H (0.6-1.2) mg/dl Est Cr Clr Drug Dosing 77.9 ml/min Est GFR ( Amer) 64.8 Est GFR (Non-Af Amer) 55.9 BUN/Creatinine Ratio 10.2 (10-20) Glucose 153 H (70-99) mg/dl Lactate 3.4 H* (0.4-2.0) mmol/L Calcium 9.1 (8.5-10.1) mg/dl Magnesium 2.9 H (1.8-2.4) mg/dl Total Bilirubin 0.5 (0.2-1) mg/dl AST 17 (15-37) U/L ALT 40 (12-78) U/L Alkaline Phosphatase 88 (45-117) U/L Total Protein 8.3 H (6.4-8.2) gm/dl Albumin 4.2 (3.4-5.0) gm/dl Globulin 4.1 H (2.5-4.0) gm/dl Albumin/Globulin Ratio 1.0 (0.9-2) HCG, Qual (Negative) Urine Color Yellow Urine Appearance Clear (Clear) Urine pH 8.0 H (4.5-7.5) Ur Specific [place] 1.013 (1.000-1.030) Urine Protein Negative (Negative) Urine Glucose (UA) Negative (Negative) Urine Ketones Negative (Negative) Urine Blood Negative (Negative) Urine Nitrite Negative (Negative) Urine Bilirubin Negative (Negative) Urine Urobilinogen Negative (Negative) Ur Leukocyte Esterase Negative (Negative) Imaging Data Attestation: I personally reviewed and interpreted this imaging study as follows: MDM Narrative Prior records/ancillary studies reviewed. Triage Nursing notes reviewed. Additional history obtained from . The patient's history was concerning for fever. Differential diagnosis: Etiologies such as postop complication, viral syndrome, otitis, pharyngitis, pneumonia, influenza, meningitis, urinary tract infection, sepsis, bacteremia, as well as others were entertained. Physical examination: As above ER treatment provided: An order was placed for continuous cardiac monitoring. The monitor shows a rate of 60-100 with a sinus rhythm. IV fluids per sepsis protocol, Zosyn, Tylenol, Ativan On reassessment the patient felt better. Diagnostics interpreted by me: The labs revealed leukocytosis, elevated lactic, blood cultures pending Negative urine, negative hCG Repeat lactic was ordered Imaging studies: CT ABDOMEN & PELVIS With Contrast: No evidence of abscess or other focal abnor mal fluid collection. 3.6 x 3.1 cm left ovarian cyst. Radiologist: Christian Iglesias MD Chest x-ray with no acute consolidation, pneumothorax or free air per my interpretation Consultation: A consultation was placed with Dr Holland. The case was discussed and diagnostics were reviewed. The patient was evaluated in the ER for further treatment. Given the patients BMI >30, IBW was used to calculate the 30ml/kg fluid bolus. This appears to be consistent with sepsis. No discernible abscess on imaging. Dr. Persaud from colorectal surgery at [place] did the procedure. Patient started antibiotics. She was given fluids per septic protocol. Medicine was consulted. She will be evaluated for admission. Urine was not infected. Chest x-ray was clear. By the evaluation outlined above emergent etiologies such as otitis, pharyngitis, pneumonia, meningitis, urinary tract infection, bacteremia, as well as others were deemed relatively unlikely. The pt informed about the findings as listed above. All questions were answered and pleased with the treatment. The chart was completed utilizing [employer] Speech voice recognition software. Grammatical errors, random word insertions, pronoun errors, and incomplete sentences are an occassional consequence of this system due to software l imitations, ambient noise, and hardware issues. Any formal questions or concerns about the content, text, or information contained within the body of this dictation should be directly addressed to the physician insurance administrative assistant for clarification. Impression & Plan Sepsis, Ovarian cyst Discharge Plan Visit Data Chief Complaint: Fever Stated Complaint: FEVER ED Provider: Topher Arroyo ED Midlevel Provider: Aby Gonzales Discharge Problem: Sepsis, Ovarian cyst Patient Disposition: Admitted As Inpatient Condition: Good Forms Stand Alone Forms: [facility] Prescriptions Prescriptions: No Action baclofen 20 mg tablet 20 mg PO UD PRN (Reason: Headache/Neck Pain) RF: 0 trazodone 50 mg tablet 100 mg PO HS RF: 0 tizanidine 4 mg tablet 4 - 8 mg PO HS RF: 0 potassium chloride 10 mEq tablet extended release 10 meq PO HS RF: 0 folic acid 400 mcg tablet 400 mcg PO HS RF: 0 levothyroxine 50 mcg tablet 50 mcg PO QAM RF: 0 pantoprazole 40 mg tablet,delayed release (DR/EC) 40 mg PO BID RF: 0 promethazine 25 mg tablet 25 mg PO Q6H PRN (Reason: Nausea) RF: 0 memantine 10 mg tablet 10 mg PO BIDM RF: 0 duloxetine 30 mg capsule,delayed release(DR/EC) 90 mg PO DAILY RF: 0 fluticasone propionate [Flonase Allergy Relief] 50 mcg/actuation [place],S uspension 2 spray INTRANASAL BID PRN (Reason: Allergy Symptoms) RF: 0 zolmitriptan 5 mg Tablet 2.5 - 5 mg PO BID PRN (Reason: Migraine Headache) RF: 0 magnesium gluconate [Mag-G] 27 mg magnesium (500 mg) tablet 125 mg PO HS RF: 0 multivitamin with minerals Tablet 1 tab PO HS RF: 0 oxycodone [Roxicodone] 5 mg tablet 5 mg PO Q6H PRN (Reason: pain) Qty: 12 RF: 0 cetirizine 10 mg Tablet 10 mg PO QAM RF: 0 albuterol sulfate 90 mcg/actuation HFA aerosol inhaler 2 puff inhalation Q6H PRN (Reason: Wheezing) RF: 0 Emgality Pen 120 mg/mL pen injector 120 mg SUBCUT MONTHLY RF: 0 clonidine HCl 0.1 mg tablet 0.1 mg PO BID RF: 0 diphenoxylate-atropine 2.5-0.025 mg tablet 1 tab PO QID PRN (Reason: Diarrhea) RF: 0 hydroxyzine HCl 25 mg tablet 25 mg PO QAM RF: 0 prednisone 10 mg tablet 10 mg PO UD RF: 0 desipramine 25 mg tablet 25 mg PO DAILY RF: 0 gabapentin 300 mg capsule 300 mg PO UD RF: 0 pindolol 5 mg tablet 5 mg PO UD RF: 0 ergocalciferol (vitamin D2) [Vitamin D2] 1,250 mcg (50,000 unit) Capsule 1,250 mcg PO WK RF: 0 Referrals Referrals: Melania Zhou DO [Primary Care Provider] - Discharge Problem: Sepsis Qualifiers: Sepsis type: sepsis due to unspecified organism Sepsis acute organ dysfunction status: unspecified Qualified Code(s): A41.9 - Sepsis, unspecified organism
[2020-11-13 23:45] LABS: Basophils # (auto) 0.01 K/uL (0-0.2); Basophils % (auto) 0.1 %; Eosinophils # (auto) 0.05 K/uL (0-0.5); Eosinophils % (auto) 0.3 %; Hematocrit (blood only) 39.9 % (37-47); Hemoglobin 13.2 g/dL (12.0-16.0); Immature Granulocytes # (auto) 0.16 K/uL (0.00-0.02); Immature Granulocytes % (auto) 0.9 %; Lymphocytes # (auto) 1.19 K/uL (1.2-3.4); Lymphocytes % (auto) 6.5 %; Mean Corpuscular Hemoglobin 29.3 pg (25-34); Mean Corpuscular Hgb Conc 33.1 g/dL (32-36); Mean Corpuscular Volume 88.7 fL (80-100); Mean Platelet Volume 9.3 fL (7.4-10.4); Monocytes # (auto) 0.76 K/uL (0.11-0.59); Monocytes % (auto) 4.1 %; Neutrophils # (auto) 16.25 K/uL (1.4-6.5); Neutrophils % (auto) 88.1 %; Platelet Count 408 K/uL (130-400); RDW Coefficient of Variation 14.1 % (11.5-14.5); RDW Standard Deviation 46.3 fL (36.4-46.3); White Blood Count 18.42 K/uL (4.8-10.8)
[2020-11-13] MEDS ORDERED: PIPERACILLIN/TAZOBACTAM 4.5 GM/120 ML BAG IV ONE (23:48)
[2020-11-13] MEDS ORDERED: PIPERACILL/TAZOBAC CONSULT ACTIVE PRN (23:48)
[2020-11-13 23:56] LABS: INR 0.9 (0.9-1.1); Partial Thromboplastin Ratio 0.9; Partial Thromboplastin Time 23.1 Seconds (21.0-31.0); Prothrombin Time 9.4 Seconds (9.0-12.0)
[2020-11-14 00:03] LABS: Albumin Level 4.2 gm/dl (3.4-5.0); BUN Creatinine Ratio 10.2 (10-20); Calcium 9.1 mg/dl (8.5-10.1); Creatinine Clr Calc Pharmacy 77.9 ml/min; Est GFR (African American) 64.8; Est GFR (Non-African American) 55.9; Magnesium 2.9 mg/dl (1.8-2.4); Potassium 4.8 mmol/L (3.5-5.1)
[2020-11-14 00:06] LABS: Bilirubin,Total 0.5 mg/dl (0.2-1); Globulin 4.1 gm/dl (2.5-4.0); Total Protein 8.3 gm/dl (6.4-8.2)
[2020-11-14 00:18] LABS: Appearance Urine Clear (Clear); Bilirubin Urine Negative (Negative); Blood Urine Negative (Negative); Color Urine Yellow; Glucose Urine UA Negative (Negative); Ketones Urine Negative (Negative); Leukocyte Esterase Urine Negative (Negative); Nitrite Urine Negative (Negative); Pregnancy Test, Serum Negative (Negative); Protein Urine Negative (Negative); Specific Gravity Urine 1.013 (1.000-1.030); Urobilinogen Urine Negative (Negative)
[2020-11-14] MEDS ORDERED: OPTIRAY 320 100ml IV ONE (00:19)
[2020-11-14] MEDS ORDERED: SODIUM CHLORIDE 0.9% 1000ML 1,000 ML IV ONE ×2 (00:21→22:02)
[2020-11-14] MEDS ORDERED: ACETAMINOPHEN 1,000 MG/100 ML VIAL IV STA (00:33)
[2020-11-14] MEDS ORDERED: LORazepam 1 MG/2 ML VIAL IV STA (01:08)
[2020-11-14] MEDS ORDERED: SODIUM CHLORIDE 0.9% 1000ML 1,000 ML IV STA (01:33)
--- NOTE | 2020-11-14 02:07 | History & Physical Report ---
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 DVT prophylaxis. SCDs RE postop hemorrhoidectomy bleed Full code Text document was generated using Visitar voice recognition software. It may contain grammatical or spelling errors. Kindly contact undersigned for clarification of any documentation item in question. History of Present Illness Chief Complaint: Fever Primary Care Provider: Melania Zhou DO History is obtained from the patient and records. Medical history significant for chronic migraine on Namenda, mood disorder, PCO S, insulin resistance as per records, hypothyroidism, gastroparesis, history syringomyelia as per records. Last confinement August 2019 for maxillary abscess and facial cellulitis status post surgery. Recent ER visit 2 weeks ago for head injury after accidental closure of car delvalle door over patient's head by her partner. Achy headache and neck, mid back, and low back pain complaints without LOC. Tingling numbness of both arms and legs with some weakness as per patient. Unremarkable imaging at [facility] ER. Worsening migraine symptoms and of chronic neck and midback pain in the ensuing weeks as per patient along with tingling numbness of the extremities with some leg weakness as per patient. Patient underwent elective hemorrhoidectomy of symptomatic hemorrhoidal disease at [facility] 4 days ago. Tolerable rectal pain with intermittent bleeding post procedure. Good appetite as per patient. The last 2 days, patient noted low-grade fever 100.1 with chills at home. Denies chest pain cough, S OB, abdominal pain, diarrhea, dysuria symptoms. Scant white rectal drainage as per patient. Patient given Zosyn at the ER for possible sepsis. MEDICAL HISTORY: As above. SURGERIES: Cholecystectomy, sinus surgery, Eye surgery, hemorrhoidectomy FAMILY HISTORY: Diabetes, heart disease. 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, disabled Allergies Allergy/AdvReac Type Severity Reaction Status Date / Time morphine Allergy Severe Hives,itchiness,nausea Verified 11/14/20 01:38 and vomiting topiramate Allergy Severe neurological Verified 11/14/20 01:38 symptoms cephalexin Allergy Mild rash Verified 11/14/20 01:38 Home Medications Medication Instructions Recorded Confirmed Type baclofen 20 mg PO UD PRN 06/06/18 11/13/20 History duloxetine 90 mg PO DAILY 06/06/18 11/13/20 History fluticasone propionate [Flonase 2 spray INTRANASAL BID PRN 06/06/18 11/14/20 History Allergy Relief] folic acid 400 mcg PO HS 06/06/18 11/14/20 History levothyroxine 50 mcg PO QAM 06/06/18 11/14/20 History memantine 10 mg PO BIDM 06/06/18 11/14/20 History pantoprazole 40 mg PO BID 06/06/18 11/13/20 History potassium chloride 10 meq PO HS 06/06/18 11/14/20 History promethazine 25 mg PO Q6H PRN 06/06/18 11/13/20 History tizanidine 4 - 8 mg PO HS 06/06/18 11/14/20 History trazodone 100 mg PO HS 06/06/18 11/14/20 History zolmitriptan 2.5 - 5 mg PO BID PRN 06/06/18 11/13/20 History albuterol sulfate 2 puff INHALATION Q6H PRN 02/17/19 11/14/20 History cetirizine 10 mg PO QAM 02/17/19 11/14/20 History magnesium gluconate [Mag-G] 125 mg PO HS 05/19/19 11/14/20 History Emgality Pen 120 mg SUBCUT MONTHLY 08/03/19 11/13/20 History clonidine HCl 0.1 mg PO BID PRN 02/18/20 11/14/20 History diphenoxylate-atropine 1 tab PO QID PRN 02/18/20 11/14/20 History hydroxyzine HCl 25 mg PO QAM 02/18/20 11/14/20 History multivitamin with minerals 1 tab PO HS 09/10/20 11/14/20 History oxycodone [Roxicodone] 5 mg PO Q6H PRN #12 tab 11/01/20 11/13/20 Rx desipramine 25 mg PO DAILY 11/13/20 11/13/20 History gabapentin 300 mg PO UD 11/13/20 11/14/20 History pindolol 5 mg PO UD 11/13/20 11/13/20 History prednisone 10 mg PO UD 11/13/20 11/14/20 History dicyclomine [Bentyl] 20 mg PO QID PRN 11/14/20 11/14/20 History ergocalciferol (vitamin D2) 1,250 mcg PO WK 11/14/20 11/14/20 History [Vitamin D2] lorazepam 0.5 mg PO UD PRN 11/14/20 11/14/20 History Past Med/Surg History Medical History (Updated 11/14/20 @ 07:08 by Escobar Holland MD) Barretts esophagus Chronic neck pain Deafness in right ear Degenerative disc disease Depression Gastroparesis High blood pressure History of bronchitis inhaler prn Hypothyroidism Insulin resistance Migraine Obesity Surgical History H/O sinus surgery x2--recent on 08/2019 History of colonoscopy History of esophagogastroduodenoscopy (EGD) History of eye surgery x2 on right History of tooth extraction History of wisdom tooth extraction S/P cholecystectomy Family History Mother Family history of reaction to anesthesia after 2 hours afer breast cancer sx "her lungs started filling up with fluid" per pt was told it was d/t anesthesia Grandfather (Paternal) Family history of diabetes mellitus Other Cancer Diabetes Heart disease Hypertension Lung disease Seizure Social History Smoking Status: Unknown if ever smoked Second Hand Exposure: No; Do You Dip or Chew Tobacco: No; Tobacco Cessation Education Requested by Patient: No Hx Alcohol Use: No Hx Substance Use: No Preferred Language: Hebrew 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 Ability: Effective Stereo Compiler Required: No Beliefs That Will Affect Care: None marital status: Current Living Situation: Spouse current occupational status: disabled Other Information That Helps Us Care for You: No Feels Safe at Home: Yes Safety Concerns: Feels Safe At This Time Assistive Devices: Apnea Monitor Review of Systems Review of Systems: As per HPI, all 10 systems reviewed, all other ROS negative Physical Exam Physical Exam: GENERAL: uncomfortable, tearful, obese, no respiratory distress SKIN: Normal color, warm HEENT: [place] palpebral conjunctivae, no ptosis, dry buccal mucosa NECK : Supple, short neck, minimal tenderness CHEST : CTA, no tenderness HEART : RRR, no obvious murmurs ABDOMEN: Some distention, nontender RECTAL : Dried blood around anal rim, sutures noted on the anal rim BACK : Mid back tenderness EXTREMITIES : Minimal LE swelling, no LE tenderness, no other conspicuous deformities noted NEUROLOGIC : Coherent, no facial asymmetry, MMTS BUE/BLE 4/5, gait and stance not assessed Results & Data Results & Data ([facility]) Vital Signs (Past 12 Hours) Vital Signs Temp Pulse Resp BP Pulse Ox 11/14/20 01:55 77 22 121/68 97 11/14/20 01:45 74 17 96 11/14/20 01:30 77 18 98 11/14/20 01:15 72 15 95 11/14/20 01:00 77 22 124/66 97 11/14/20 00:45 79 17 95 11/14/20 00:31 86 19 138/86 95 11/14/20 00:30 83 20 95 11/14/20 00:24 88 20 157/103 H 95 11/14/20 00:00 94 H 17 132/83 11/13/20 23:46 88 20 95 11/13/20 23:45 86 27 H 141/98 H 95 11/13/20 23:44 88 15 135/93 96 11/13/20 23:33 88 17 137/103 H 95 11/13/20 23:00 37.2 C 90 20 153/91 H 98 Laboratory Results Laboratory Results WBC 18.42 K/uL (4.8-10.8) H 11/13/20 23:20 RBC 4.50 M/uL (4.2-5.4) 11/13/20 23:20 Hgb 13.2 g/dL (12.0-16.0) 11/13/20 23:20 Hct 39.9 % (37-47) 11/13/20 23:20 MCV 88.7 fL (80-100) 11/13/20 23:20 MCH 29.3 pg (25-34) 11/13/20 23:20 MCHC 33.1 g/dL (32-36) 11/13/20 23:20 RDW Std Deviation 46.3 fL (36.4-46.3) 11/13/20 23:20 RDW Coeff of [place] 14.1 % (11.5-14.5) 11/13/20 23:20 Plt Count 408 K/uL (130-400) H 11/13/20 23:20 MPV 9.3 fL (7.4-10.4) 11/13/20 23:20 Immature Gran % (Auto) 0.9 % 11/13/20 23:20 Neut % (Auto) 88.1 % 11/13/20 23:20 Lymph % (Auto) 6.5 % 11/13/20 23:20 [place] % (Auto) 4.1 % 11/13/20 23:20 Eos % (Auto) 0.3 % 11/13/20 23:20 Baso % (Auto) 0.1 % 11/13/20 23:20 Neut # (Auto) 16.25 K/uL (1.4-6.5) H 11/13/20 23:20 Lymph # (Auto) 1.19 K/uL (1.2-3.4) L 11/13/20 23:20 [place] # (Auto) 0.76 K/uL (0.11-0.59) H 11/13/20 23:20 Eos # (Auto) 0.05 K/uL (0-0.5) 11/13/20 23:20 Baso # (Auto) 0.01 K/uL (0-0.2) 11/13/20 23:20 Immature Gran # (Auto) 0.16 K/uL (0.00-0.02) H 11/13/20 23:20 PT 9.4 Seconds (9.0-12.0) 11/13/20 23:20 INR 0.9 (0.9-1.1) 11/13/20 23:20 APTT 23.1 Seconds (21.0-31.0) 11/13/20 23:20 PTT Ratio 0.9 11/13/20 23:20 Sodium 138 mmol/L (136-145) 11/13/20 23:20 Potassium 4.8 mmol/L (3.5-5.1) 11/13/20 23:20 Chloride 103 mmol/L (98-107) 11/13/20 23:20 Carbon Dioxide 27 mmol/L (21-32) 11/13/20 23:20 Anion Gap 8.0 (3-11) 11/13/20 23:20 BUN 12 mg/dl (7-18) 11/13/20 23:20 Creatinine 1.21 mg/dl (0.6-1.2) H 11/13/20 23:20 Est Cr Clr Drug Dosing 77.9 ml/min 11/13/20 23:20 Est GFR ( Amer) 64.8 11/13/20 23:20 Est GFR (Non-Af Amer) 55.9 11/13/20 23:20 BUN/Creatinine Ratio 10.2 (10-20) 11/13/20 23:20 Glucose 153 mg/dl (70-99) H 11/13/20 23:20 Lactate 3.4 mmol/L (0.4-2.0) H* 11/13/20 23:25 Calcium 9.1 mg/dl (8.5-10.1) 11/13/20 23:20 Magnesium 2.9 mg/dl (1.8-2.4) H 11/13/20 23:20 Total Bilirubin 0.5 mg/dl (0.2-1) 11/13/20 23:20 AST 17 U/L (15-37) 11/13/20 23:20 ALT 40 U/L (12-78) 11/13/20 23:20 Alkaline Phosphatase 88 U/L (45-117) 11/13/20 23:20 Total Protein 8.3 gm/dl (6.4-8.2) H 11/13/20 23:20 Albumin 4.2 gm/dl (3.4-5.0) 11/13/20 23:20 Globulin 4.1 gm/dl (2.5-4.0) H 11/13/20 23:20 Albumin/Globulin Ratio 1.0 (0.9-2) 11/13/20 23:20 Procalcitonin < 0.05 ng/ml (0-0.5) 11/13/20 23:20 HCG, Qual Negative (Negative) 11/13/20 23:20 Urine Color Yellow 11/13/20 23:20 Urine Appearance Clear (Clear) 11/13/20 23:20 Urine pH 8.0 (4.5-7.5) H 11/13/20 23:20 Ur Specific [place] 1.013 (1.000-1.030) 11/13/20 23:20 Urine Protein Negative (Negative) 11/13/20 23:20 Urine Glucose (UA) Negative (Negative) 11/13/20 23:20 Urine Ketones Negative (Negative) 11/13/20 23:20 Urine Blood Negative (Negative) 11/13/20 23:20 Urine Nitrite Negative (Negative) 11/13/20 23:20 Urine Bilirubin Negative (Negative) 11/13/20 23:20 Urine Urobilinogen Negative (Negative) 11/13/20 23:20 Ur Leukocyte Esterase Negative (Negative) 11/13/20 23:20 COVID-19 Eval Order Covid19 IDNow [facility] 11/14/20 01:29 SARS-CoV-2, RNA, NAAT NEGATIVE (NEGATIVE) 11/14/20 01:29 Diagnostic Findings Chest x-ray as per my interpretation no infiltrate CT abdomen pelvis initial read: No evidence of abscess or other focal abnormal fluid collection. 3.6 x 3.1 cm left ovarian cyst.
[2020-11-14] MEDS ORDERED: oxyCODONE HCL IR 5 MG TAB (IMMEDIATE RELEASE) PO STA (02:15)
[2020-11-14 02:45] LABS: Lyme Ab IgG w/WB Rflx Negative (Negative); Lyme Ab IgM w/WB Rflx Negative (Negative)
[2020-11-14] MEDS ORDERED: LORazepam 0.25 MG/0.5 ML VIAL IV PRN (03:31)
[2020-11-14] MEDS ORDERED: FLUTICASONE PROPIONATE NA SPR 16 GM BTL PRN (03:31)
[2020-11-14] MEDS ORDERED: PROMETHAZINE HCL 12.5 MG in SODIUM CHLORIDE 0.9% 50 ML IV PRN (03:31)
[2020-11-14] MEDS: LORazepam 0.25 MG/0.5 ML VIAL IV PRN ×2 (03:37→13:57)
[2020-11-14] MEDS ORDERED: BACLOFEN 10 MG TAB PO PRN (03:56)
[2020-11-14] MEDS ORDERED: GADOBUTROL 65ML VIAL IV ONE (05:44)
[2020-11-14] MEDS: oxyCODONE HCL IR 5 MG TAB (IMMEDIATE RELEASE) PO PRN ×3 (05:58→17:57)
[2020-11-14] MEDS: LEVOTHYROXINE SODIUM 50 MCG TABLET PO SCH (05:59)
[2020-11-14 06:44] LABS: Basophils # (auto) 0.01 K/uL (0-0.2); Basophils % (auto) 0.1 %; Eosinophils # (auto) 0.14 K/uL (0-0.5); Eosinophils % (auto) 0.9 %; Hematocrit (blood only) 37.1 % (37-47); Hemoglobin 11.8 g/dL (12.0-16.0); Immature Granulocytes # (auto) 0.13 K/uL (0.00-0.02); Immature Granulocytes % (auto) 0.8 %; Lymphocytes # (auto) 2.88 K/uL (1.2-3.4); Lymphocytes % (auto) 17.7 %; Mean Corpuscular Hemoglobin 28.4 pg (25-34); Mean Corpuscular Hgb Conc 31.8 g/dL (32-36); Mean Corpuscular Volume 89.4 fL (80-100); Mean Platelet Volume 9.1 fL (7.4-10.4); Monocytes # (auto) 1.03 K/uL (0.11-0.59); Monocytes % (auto) 6.3 %; Neutrophils # (auto) 12.08 K/uL (1.4-6.5); Neutrophils % (auto) 74.2 %; Platelet Count 316 K/uL (130-400); RDW Coefficient of Variation 14.2 % (11.5-14.5); RDW Standard Deviation 46.7 fL (36.4-46.3); Red Blood Count 4.15 M/uL (4.2-5.4); White Blood Count 16.27 K/uL (4.8-10.8)
[2020-11-14 06:54] LABS: Estimated Average Glucose 131 mg/dl; Hemoglobin A1C 6.2 % (4.5-5.6)
[2020-11-14 07:02] LABS: BUN Creatinine Ratio 12.6 (10-20); Calcium 8.4 mg/dl (8.5-10.1); Creatinine Clr Calc Pharmacy 102.1 ml/min; Est GFR (African American) 90.3; Est GFR (Non-African American) 77.9; Potassium 4.5 mmol/L (3.5-5.1)
--- NOTE | 2020-11-14 07:21 | Magnetic Resonance Report ---
Brain MRI WITH AND WITHOUT CONTRAST HISTORY: Headache. TECHNIQUE: Multiplanar multisequence MRI of the brain was performed both before and after the intrave nous administration of contrast. COMPARISON STUDY: Head CT 11/01/2020. FINDINGS: There is a right-sided cochlear implant resulting in artifact in nondiagnostic evaluation o f the right posterior intracranial structures. Otherwise, there are no areas of restricted diffusion to suggest acute infarction. The midline structures are intact. The paranasal sinuses are clear. The mastoid air cells are clear. The ventricles and sulci are within normal limits for age. There is no m ass, hematoma, midline shift. The major vascular flow-voids at the skull base are well maintained. Po stcontrast sequences show no areas of abnormal enhancement. IMPRESSION: Right-sided cochlear implant resulting in artifact. Otherwise, no acute intracranial abnormality. ACT 112: Negative or not required by law. Electronically signed by: Rick Brown M.D. 11/14/2020 7:20 AM
--- NOTE | 2020-11-14 07:24 | Magnetic Resonance Report ---
THORACIC SPINE MRI WITH AND WITHOUT CONTRAST HISTORY: worsening midback pain, hx syringomyelia, fever TECHNIQUE: Multiplanar multisequence MRI of the thoracic spine was performed both before and after th e intravenous administration of contrast. COMPARISON: Thoracic spine CT 11/01/2020. FINDINGS: Motion artifact results in suboptimal evaluation. No fracture or subluxation within the thoracic spin e. Paraspinal soft tissues are unremarkable. T8 vertebral body hemangioma is noted. Postcontrast sequ ences show no areas of abnormal enhancement. Disc spaces are preserved. The thoracic spinal cord appe ars to be normal and course, caliber, and signal intensity. No significant central canal or neural fo raminal narrowing. IMPRESSION: Suboptimal evaluation due to motion artifact. However, no significant abnormality identified. ACT 112: Negative or not required by law. Electronically signed by: Rick Brown M.D. 11/14/2020 7:23 AM
--- NOTE | 2020-11-14 07:52 | CT Scan Report ---
CT OF THE ABDOMEN AND PELVIS WITH CONTRAST CLINICAL HISTORY: Recent hemorrhoid surgery, fever, pain COMPARISON STUDY: CT of the abdomen and pelvis September 10, 2020. TECHNIQUE: Following IV administration of 92 mL of Optiray-320, axial images of the abdomen and pelvi s were obtained from the lung bases to the proximal femurs. Images were reviewed in the axial, sagitt al, and coronal planes. IV contrast was administered without complication. Automated exposure contro l was utilized for the study. A dose lowering technique was utilized adhering to the principles of A USMAN. CT DOSE: 1408.32 mGy.cm FINDINGS: Lung bases are unremarkable. No pneumatosis, free air or portal venous gas is present. Hepa tic steatosis is noted. Borderline splenomegaly is unchanged. There is no biliary ductal dilatation s tatus post cholecystectomy. The adrenal glands, kidneys and pancreas are unremarkable. There is no hy dronephrosis. There is no peripancreatic infiltration. There is no evidence for a bowel obstruction. The appendix is normal. No fluid collection is identified to suggest an abscess. Note is made of a 3. 7 cm suspected left ovarian cyst. Additional hypodensities within the ovaries may reflect follicles o r dilated fallopian tubes. No suspicious osseous lesions are present. No acute fractures are identifi ed within visualized skeletal structures. IMPRESSION: 1. No acute process within the abdomen or pelvis. 2. Normal appendix. No bowel obstruction. No fluid collection to suggest an abscess. 3. 3.7 cm suspected left ovarian cyst. Additional hypodensities within the ovaries may reflect follic les or dilated fallopian tubes. ACT 112: Negative or not required by law. Electronically signed by: Kush White M.D. 11/14/2020 7:51 AM
--- NOTE | 2020-11-14 08:05 | XRay Report ---
XR chest 1V portable HISTORY: SEPSIS COMPARISON: 02/23/2020. FINDINGS: The lungs are clear. Cardiac silhouette is normal in size. No pleural effusions. No pneumot horax. IMPRESSION: No acute process. ACT 112: Negative or not required by law. Electronically signed by: Rick Brown M.D. 11/14/2020 8:04 AM
[2020-11-14] MEDS ORDERED: PIPERACILLIN/TAZOBACTAM 4.5 GM/120 ML BAG IV ONE (08:15)
[2020-11-14] MEDS ORDERED: PIPERACILL/TAZOBAC CONSULT ACTIVE PRN (08:34)
--- NOTE | 2020-11-14 08:46 | Magnetic Resonance Report ---
CERVICAL SPINE MRI WITH AND WITHOUT CONTRAST HISTORY: worsening neck pain, fever TECHNIQUE: Multiplanar multisequence MRI of the cervical spine was performed both before and after th e use of intravenous contrast. COMPARISON STUDY: Cervical spine CT 11/01/2020. MR cervical spine 12/25/2014. FINDINGS: Mild motion artifact. Straightening of the cervical spine. No fracture or subluxation. Mild disc space narrowing at C5-C6 and C6-C7. The cervical spinal cord is normal and course, caliber, and signal intensity. No abnormal enhancement within the cervical spine. Prevertebral soft tissues and t he C1-C2 interval are intact. C2-C3: No significant central canal or neural foraminal narrowing. C3-C4: No significant central canal or neural foraminal narrowing. C4-C5: No significant central canal or neural foraminal narrowing. C5-C6: Small broad-based posterior disc bulge resulting in mild central canal and mild left-sided carlee ral foraminal narrowing. C6-C7: No significant central canal or neural foraminal narrowing. C7-T1: No significant central canal or neural foraminal narrowing. IMPRESSION: 1. Motion artifact. No fracture or subluxation within the cervical spine. 2. Normal cervical spinal cord. 3. Mild degenerative disc disease at C5-C6. ACT 112: Negative or not required by law. Electronically signed by: Rick Brown M.D. 11/14/2020 8:44 AM
[2020-11-14] MEDS: MEMANTINE HCL 10 MG TAB PO SCH ×2 (08:52→17:57)
[2020-11-14] MEDS: DESIPRAMINE HCL 25 MG TAB PO SCH (08:53)
[2020-11-14] MEDS: DULoxetine HCL 30 MG CAP PO SCH (08:53)
[2020-11-14] MEDS: CETIRIZINE HCL 10 MG TABLET PO SCH (08:53)
[2020-11-14] MEDS: PANTOprazole 40 MG TAB PO SCH ×2 (08:53→21:39)
[2020-11-14 10:02] LABS: Influenza A virus by PCR Negative (Neg); Influenza B virus by PCR Negative (Neg); RSV by PCR Negative (Neg); SARS CoV2 RNA(COVID-19) InHosp NEGATIVE (Negative)
[2020-11-14] MEDS ORDERED: BACITRACIN OINT 15 GM TUBE EXT ONE (10:40)
--- NOTE | 2020-11-14 12:42 | Surgery Consultation ---
Date of Consultation November 14, 2020 Assessment & Plan (1) Fever: (2) Sepsis: pt is a 40 year-old female was admitted to hospital for fever after 4 days hemorrhoidectomy, IMP: fever, sepsis, now, pt is doing better, less rectal pain, no fever, continue iv antibiotic treatment, repeat labs in morning, apply bacitricin on rectal area once a day, will F/U Present on Admission?: Yes History of Present Illness Attending Physician: Pedro Pineda MD History of Present Illness General Chief complaint: Fever Stated complaint: FEVER Time Seen by Provider: 11/13/20 23:05 History of Present Illness Maximum Pain Intensity: 8 This 40-year-old presents to the ER complaining of fever who had a hemorrhoid surgery on at [place] Location: Generalized Quality: Feverish Severity: Moderate Duration: Past few days Timing: Started the other day Context: Patient was concerned and came in Modifying factors: better with Tylenol; worse with going the bathroom Patient states she called her GI doctor and was advised to go to the ER. T-max 100.1. Patient complains of rectal discomfort. Patient denies chest pain, dyspnea, cough, congestion, vomiting, diarrhea, flulike illness. She states she has some urinary discomfort once but that is cleared up. Patient has been taking Tylenol and Motrin for the fever. Last dose was at 7 PM. I ( Darlene Carr MD) got a call for consult fever after hemorrhoidectomy by colorectal surgeon 4 days ago. I reviewed pt's H/P, labs, CT scan with pt, now pt feels better, less rectal pain, no fever this morning. Home Medications Medication Instructions Recorded Confirmed Type baclofen 20 mg PO UD PRN 06/06/18 11/13/20 History duloxetine 90 mg PO DAILY 06/06/18 11/13/20 History fluticasone propionate [Flonase 2 spray INTRANASAL BID PRN 06/06/18 11/14/20 History Allergy Relief] folic acid 400 mcg PO HS 06/06/18 11/14/20 History levothyroxine 50 mcg PO QAM 06/06/18 11/14/20 History memantine 10 mg PO BIDM 06/06/18 11/14/20 History pantoprazole 40 mg PO BID 06/06/18 11/13/20 History potassium chloride 10 meq PO HS 06/06/18 11/14/20 History promethazine 25 mg PO Q6H PRN 06/06/18 11/13/20 History tizanidine 4 - 8 mg PO HS 06/06/18 11/13/20 History trazodone 100 mg PO HS 06/06/18 11/13/20 History zolmitriptan 2.5 - 5 mg PO BID PRN 06/06/18 11/13/20 History albuterol sulfate 2 puff INHALATION Q6H PRN 02/17/19 11/14/20 History cetirizine 10 mg PO QAM 02/17/19 11/14/20 History magnesium gluconate [Mag-G] 125 mg PO HS 05/19/19 11/14/20 History Emgality Pen 120 mg SUBCUT MONTHLY 08/03/19 11/13/20 History clonidine HCl 0.1 mg PO BID 02/18/20 11/14/20 History diphenoxylate-atropine 1 tab PO QID PRN 02/18/20 11/14/20 History hydroxyzine HCl 25 mg PO QAM 02/18/20 11/14/20 History multivitamin with minerals 1 tab PO HS 09/10/20 11/14/20 History oxycodone [Roxicodone] 5 mg PO Q6H PRN #12 tab 11/01/20 11/13/20 Rx desipramine 25 mg PO DAILY 11/13/20 11/13/20 History gabapentin 300 mg PO UD 11/13/20 11/14/20 History pindolol 5 mg PO UD 11/13/20 11/13/20 History prednisone 10 mg PO UD 11/13/20 11/13/20 History ergocalciferol (vitamin D2) 1,250 mcg PO WK 11/14/20 11/14/20 History [Vitamin D2] Allergies Allergy/AdvReac Type Severity Reaction Status Date / Time morphine Allergy Severe Hives,itchiness,nausea Verified 09/10/20 19:45 and vomiting topiramate Allergy Severe neurological Verified 09/10/20 19:45 symptoms cephalexin Allergy Mild rash Verified 09/10/20 19:45 Past Med/Surg History Medical History (Updated 11/14/20 @ 01:27 by Aby Gonzales PA-C) Barretts esophagus Chronic neck pain Deafness in right ear Degenerative disc disease Depression Gastroparesis High blood pressure History of bronchitis inhaler prn Hypothyroidism Insulin resistance Migraine Obesity Surgical History H/O sinus surgery x2--recent on 08/2019 History of colonoscopy History of esophagogastroduodenoscopy (EGD) History of eye surgery x2 on right History of tooth extraction History of wisdom tooth extraction S/P cholecystectomy Family History Mother Family history of reaction to anesthesia after 2 hours afer breast cancer sx "her lungs started filling up with fluid" per pt was told it was d/t anesthesia Grandfather (Paternal) Family history of diabetes mellitus Other Cancer Diabetes Heart disease Hypertension Lung disease Seizure Social History Smoking Status: Never smoker Second Hand Exposure: Yes (parents smoked); Hx Alcohol Use: No Hx Substance Use: No Preferred Language: [place]ar[place]uan 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 Ability: Effective Mine Analyst Required: No Beliefs That Will Affect Care: None marital status: Current Living Situation: Significant Other current occupational status: disabled Feels Safe at Home: Yes Assistive Devices: Glasses Review of Systems A total of 10 systems reviewed and were otherwise negative Allergies Allergy/AdvReac Type Severity Reaction Status Date / Time morphine Allergy Severe Hives,itchiness,nausea Verified 11/14/20 01:38 and vomiting topiramate Allergy Severe neurological Verified 11/14/20 01:38 symptoms cephalexin Allergy Mild rash Verified 11/14/20 01:38 Home Medications Medication Instructions Recorded Confirmed Type baclofen 20 mg PO UD PRN 06/06/18 11/13/20 History duloxetine 90 mg PO DAILY 06/06/18 11/13/20 History fluticasone propionate [Flonase 2 spray INTRANASAL BID PRN 06/06/18 11/14/20 History Allergy Relief] folic acid 400 mcg PO HS 06/06/18 11/14/20 History levothyroxine 50 mcg PO QAM 06/06/18 11/14/20 History memantine 10 mg PO BIDM 06/06/18 11/14/20 History pantoprazole 40 mg PO BID 06/06/18 11/13/20 History potassium chloride 10 meq PO HS 06/06/18 11/14/20 History promethazine 25 mg PO Q6H PRN 06/06/18 11/13/20 History tizanidine 4 - 8 mg PO HS 06/06/18 11/14/20 History trazodone 100 mg PO HS 06/06/18 11/14/20 History zolmitriptan 2.5 - 5 mg PO BID PRN 06/06/18 11/13/20 History albuterol sulfate 2 puff INHALATION Q6H PRN 02/17/19 11/14/20 History cetirizine 10 mg PO QAM 02/17/19 11/14/20 History magnesium gluconate [Mag-G] 125 mg PO HS 05/19/19 11/14/20 History Emgality Pen 120 mg SUBCUT MONTHLY 08/03/19 11/13/20 History clonidine HCl 0.1 mg PO BID PRN 02/18/20 11/14/20 History diphenoxylate-atropine 1 tab PO QID PRN 02/18/20 11/14/20 History hydroxyzine HCl 25 mg PO QAM 02/18/20 11/14/20 History multivitamin with minerals 1 tab PO HS 09/10/20 11/14/20 History oxycodone [Roxicodone] 5 mg PO Q6H PRN #12 tab 11/01/20 11/13/20 Rx desipramine 25 mg PO DAILY 11/13/20 11/13/20 History gabapentin 300 mg PO UD 11/13/20 11/14/20 History pindolol 5 mg PO UD 11/13/20 11/13/20 History prednisone 10 mg PO UD 11/13/20 11/14/20 History dicyclomine [Bentyl] 20 mg PO QID PRN 11/14/20 11/14/20 History ergocalciferol (vitamin D2) 1,250 mcg PO WK 11/14/20 11/14/20 History [Vitamin D2] lorazepam 0.5 mg PO UD PRN 11/14/20 11/14/20 History Patient History Medical History (Updated 11/14/20 @ 07:08 by Escobar Holland MD) Barretts esophagus Chronic neck pain Deafness in right ear Degenerative disc disease Depression Gastroparesis High blood pressure History of bronchitis inhaler prn Hypothyroidism Insulin resistance Migraine Obesity Surgical History H/O sinus surgery x2--recent on 08/2019 History of colonoscopy History of esophagogastroduodenoscopy (EGD) History of eye surgery x2 on right History of tooth extraction History of wisdom tooth extraction S/P cholecystectomy Family History Mother Family history of reaction to anesthesia after 2 hours afer breast cancer sx "her lungs started filling up with fluid" per pt was told it was d/t anesthesia Grandfather (Paternal) Family history of diabetes mellitus Other Cancer Diabetes Heart disease Hypertension Lung disease Seizure Social History Smoking Status: Unknown if ever smoked Second Hand Exposure: No; Do You Dip or Chew Tobacco: No; Tobacco Cessation Education Requested by Patient: No Hx Alcohol Use: No Hx Substance Use: No Preferred Language: [place]ar[place] 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 Ability: Effective Mine Analyst Required: No Beliefs That Will Affect Care: None marital status: Current Living Situation: Spouse current occupational status: disabled Other Information That Helps Us Care for You: No Feels Safe at Home: Yes Safety Concerns: Feels Safe At This Time Assistive Devices: Apnea Monitor Review of Systems Review of Systems: All systems reviewed & are unremarkable except as noted in HPI & below Constitutional: as per Subjective / HPI Eyes: as per Subjective / HPI Ear, Nose, Mouth, Throat: as per Subjective / HPI hearing loss Respiratory: as per Subjective / HPI Cardiovascular: as per Subjective / HPI Additional Comments: chest pain Gastrointestinal: as per Subjective / HPI partial SBO, Genitourinary: as per Subjective / HPI Musculoskeletal: as per Subjective / HPI Integumentary: as per Subjective / HPI Neurologic: as per Subjective / HPI migraine Psychiatric: as per Subjective / HPI Endocrine: as per Subjective / HPI Hematologic / Lymphatic: as per Subjective / HPI leukocytosis Physical Exam Constitutional: WD/WN, vitals as above well developed and well nourished Eyes: PERRL, conjunctivae normal, anicteric sclerae ENMT: external ear and nose normal, oropharynx normal Neck: trachea midline, no thyromegaly Respiratory: normal respiratory effort, lungs clear to auscultation normal respiratory effort Cardiovascular: RRR, no murmur, no edema Gastrointestinal (Abdomen): normal bowel sounds, soft, nontender, no hepatosplenomegaly rectal exam, some suture on rectal area, mild tenderness at rectal area, no palpable mass, no drainage, Musculoskeletal: no cyanosis or clubbing, extremities motor strength 5/5 Skin: no rashes, warm and dry Neurologic: awake Psychiatric: Orientation: alert and oriented x 3 Results & Data ([facility]) Vital Signs (Past 12 Hours) Vital Signs Temp Pulse Pulse Resp BP BP Pulse Ox 11/14/20 11:17 36.9 C 78 16 118/81 95 11/14/20 07:45 36.6 C 81 16 121/81 91 11/14/20 07:42 83 11/14/20 02:30 73 18 102/53 L 98 11/14/20 02:02 73 22 126/66 97 11/14/20 01:55 77 22 121/68 97 11/14/20 01:45 74 17 96 11/14/20 01:30 77 18 98 11/14/20 01:15 72 15 95 11/14/20 01:00 77 22 124/66 97 11/14/20 00:45 79 17 95 Laboratory Results Abnormal lab results 11/13/20 11/13/20 11/13/20 Range/Units 23:20 23:20 23:20 WBC 18.42 H (4.8-10.8) K/uL RBC (4.2-5.4) M/uL Hgb (12.0-16.0) g/dL MCHC (32-36) g/dL RDW Std Deviation (36.4-46.3) fL Plt Count 408 H (130-400) K/uL Neut # (Auto) 16.25 H (1.4-6.5) K/uL Lymph # (Auto) 1.19 L (1.2-3.4) K/uL [place] # (Auto) 0.76 H (0.11-0.59) K/uL Immature Gran # (Auto) 0.16 H (0.00-0.02) K/uL Creatinine 1.21 H (0.6-1.2) mg/dl Glucose 153 H (70-99) mg/dl Hemoglobin A1c (4.5-5.6) % Lactate (0.4-2.0) mmol/L Calcium (8.5-10.1) mg/dl Magnesium 2.9 H (1.8-2.4) mg/dl Total Protein 8.3 H (6.4-8.2) gm/dl Globulin 4.1 H (2.5-4.0) gm/dl Urine pH 8.0 H (4.5-7.5) 11/13/20 11/14/20 11/14/20 Range/Units 23:25 06:26 06:26 WBC 16.27 H (4.8-10.8) K/uL RBC 4.15 L (4.2-5.4) M/uL Hgb 11.8 L (12.0-16.0) g/dL MCHC 31.8 L (32-36) g/dL RDW Std Deviation 46.7 H (36.4-46.3) fL Plt Count (130-400) K/uL Neut # (Auto) 12.08 H (1.4-6.5) K/uL Lymph # (Auto) (1.2-3.4) K/uL [place] # (Auto) 1.03 H (0.11-0.59) K/uL Immature Gran # (Auto) 0.13 H (0.00-0.02) K/uL Creatinine (0.6-1.2) mg/dl Glucose (70-99) mg/dl Hemoglobin A1c 6.2 H (4.5-5.6) % Lactate 3.4 H* (0.4-2.0) mmol/L Calcium (8.5-10.1) mg/dl Magnesium (1.8-2.4) mg/dl Total Protein (6.4-8.2) gm/dl Globulin (2.5-4.0) gm/dl Urine pH (4.5-7.5) 11/14/20 Range/Units 06:26 WBC (4.8-10.8) K/uL RBC (4.2-5.4) M/uL Hgb (12.0-16.0) g/dL MCHC (32-36) g/dL RDW Std Deviation (36.4-46.3) fL Plt Count (130-400) K/uL Neut # (Auto) (1.4-6.5) K/uL Lymph # (Auto) (1.2-3.4) K/uL [place] # (Auto) (0.11-0.59) K/uL Immature Gran # (Auto) (0.00-0.02) K/uL Creatinine (0.6-1.2) mg/dl Glucose 122 H (70-99) mg/dl Hemoglobin A1c (4.5-5.6) % Lactate (0.4-2.0) mmol/L Calcium 8.4 L (8.5-10.1) mg/dl Magnesium (1.8-2.4) mg/dl Total Protein (6.4-8.2) gm/dl Globulin (2.5-4.0) gm/dl Urine pH (4.5-7.5) Diagnostic Findings CT OF THE ABDOMEN AND PELVIS WITH CONTRAST CLINICAL HISTORY: Recent hemorrhoid surgery, fever, pain COMPARISON STUDY: CT of the abdomen and pelvis September 10, 2020. TECHNIQUE: Following IV administration of 92 mL of Optiray-320, axial images of the abdomen and pelvis were obtained from the lung bases to the proximal femurs. Images were reviewed in the axial, sagittal, and coronal planes. IV contrast was administered without complication. Automated exposure control was utilized for the study. A dose lowering technique was utilized adhering to the principles of ALARA. CT DOSE: 1408.32 mGy.cm FINDINGS: Lung bases are unremarkable. No pneumatosis, free air or portal venous gas is present. Hepatic steatosis is noted. Borderline splenomegaly is unchanged. There is no biliary ductal dilatation status post cholecystectomy. The adrenal glands, kidneys and pancreas are unremarkable. There is no hydronephrosis. There is no peripancreatic infiltration. There is no evidence for a bowel obstruction. The appendix is normal. No fluid collection is identified to suggest an abscess. Note is made of a 3.7 cm suspected left ovarian cyst. Additional hypodensities within the ovaries may reflect follicles or dilated fallopian tubes. No suspicious osseous lesions are present. No acute fractures are identified within visualized skeletal structures. IMPRESSION: 1. No acute process within the abdomen or pelvis. 2. Normal appendix. No bowel obstruction. No fluid collection to suggest an abscess. 3. 3.7 cm suspected left ovarian cyst. Additional hypodensities within the ovaries may reflect follicles or dilated fallopian tubes. (1) Sepsis Sepsis acute organ dysfunction status: unspecified Sepsis type: sepsis due to unspecified organism Qualified Code(s): A41.9 - Sepsis, unspecified organism
[2020-11-14] MEDS: PIPERACILLIN/TAZOBACTAM 4.5 GM in DEXTROSE 5% 100 ML IV SCH ×2 (13:48→21:40)
--- NOTE | 2020-11-14 16:52 | Hospitalist Progress Note ---
Date of Service November 14, 2020 Assessment & Plan (1) Fever: (1) Fever -- s/p Post Hemorrhoidectomy 4 days prior to admission -- CT abd/pelvis: unrevealing -- blood cultures: pending -- continue IV Z[facility] Gen Surg consulted Bacitracin ordered (2) Acute Kidney Injury -- prerenal etiology -- resolved with IV fluids Worsening migraine headache, neck and back pain Recent history of trauma -- Brain MRI: no acute findings Cervical MRI: C5-C6 degenerative disease Thoracic MRI: unrevealing mood disorder, at baseline PCOS, insulin resistance as per records, hemoglobin A1c of 6.2 hypothyroidism, euthyroid as of recent outpatient TSH gastroparesis at baseline DVT prophylaxis. SCDs RE postop hemorrhoidectomy bleed Full code Disposition anticipate d/c home when medically stable plan of care discussed with patient in detail and at length all questions answered she is understanding, agreeable, comfortable with the plan of care Admission and Anticipated Discharge Date Admission Date: November 14, 2020 Subjective ff up for fever, post hemorrhoidectomy seen with ANIKET Gray at bedside thru whole encounter states she is having pain over the rectal area no BM yet today no nausea, chills currently having typical migraine, no neck pain has b/l arm paresthesias- chronic no chest pain, dyspnea, palpitations, dizziness no other symptoms Review of Systems Review of Systems: All systems reviewed & are unremarkable except as noted in Subjective Physical Exam Physical Exam: General- oriented x 3, not in distress, speaks in sentences with no effort or accessory muscle use Head- atraumatic Eyes- PERRL, EOMI, anicteric ENT- oropharynx clear Neck- supple, no JVD, no adenopathy, no thyromegaly; carotids +2/2, no bruits appreciated Lungs- clear to auscultation bilaterally, no rales/wheezes Heart- normal rate, regular rhythm; no murmur, no gallop, no rub appreciated Abdomen- normal bowel sounds, nondistended, soft, nontender, no masses or hepatosplenomegaly Rectal exam- no signs of erythema/edema/discharge noted no hemorrhoids noted Extremities- no pretibial edema, no calf tenderness; peripheral pulses intact Neuro- alert, oriented x 3; CN 2-12 grossly intact; motor 5/5 bilaterally;sensation 100% on all extremities; no other gross focal neurologic deficits Skin- warm & dry Results & Data Results & Data ([facility]) Vital Signs (Past 12 Hours) Vital Signs Temp Pulse Pulse Resp BP Pulse Ox 11/14/20 14:39 36.9 C 85 16 132/83 95 11/14/20 11:17 36.9 C 78 16 118/81 95 11/14/20 07:45 36.6 C 81 16 121/81 91 11/14/20 07:42 83 all noted and reviewed including below Laboratory Results Laboratory Results - last 24 hr 11/13/20 11/13/20 11/13/20 23:20 23:20 23:20 WBC 18.42 H RBC 4.50 Hgb 13.2 Hct 39.9 MCV 88.7 MCH 29.3 MCHC 33.1 RDW Std Deviation 46.3 RDW Coeff of [place] 14.1 Plt Count 408 H MPV 9.3 Immature Gran % (Auto) 0.9 Neut % (Auto) 88.1 Lymph % (Auto) 6.5 [place] % (Auto) 4.1 Eos % (Auto) 0.3 Baso % (Auto) 0.1 Neut # (Auto) 16.25 H Lymph # (Auto) 1.19 L [place] # (Auto) 0.76 H Eos # (Auto) 0.05 Baso # (Auto) 0.01 Immature Gran # (Auto) 0.16 H PT 9.4 INR 0.9 APTT 23.1 PTT Ratio 0.9 Sodium Potassium Chloride Carbon Dioxide Anion Gap BUN Creatinine Est Cr Clr Drug Dosing Est GFR ( Amer) Est GFR (Non-Af Amer) BUN/Creatinine Ratio Glucose Estimat Average Glucose Hemoglobin A1c Lactate Calcium Magnesium Total Bilirubin AST ALT Alkaline Phosphatase Total Protein Albumin Globulin Albumin/Globulin Ratio Procalcitonin HCG, Qual Negative Urine Color Urine Appearance Urine pH Ur Specific [place] Urine Protein Urine Glucose (UA) Urine Ketones Urine Blood Urine Nitrite Urine Bilirubin Urine Urobilinogen Ur Leukocyte Esterase Lyme Disease IgG Ab Lyme Disease IgM Ab COVID-19 Eval Order SARS-CoV-2 (PCR) Influenza Type A (PCR) Influenza Type B (PCR) RSV (RT-PCR) SARS-CoV-2, RNA, NAAT 11/13/20 11/13/20 11/13/20 23:20 23:20 23:20 WBC RBC Hgb Hct MCV MCH MCHC RDW Std Deviation RDW Coeff of [place] Plt Count MPV Immature Gran % (Auto) Neut % (Auto) Lymph % (Auto) [place] % (Auto) Eos % (Auto) Baso % (Auto) Neut # (Auto) Lymph # (Auto) [place] # (Auto) Eos # (Auto) Baso # (Auto) Immature Gran # (Auto) PT INR APTT PTT Ratio Sodium 138 Potassium 4.8 Chloride 103 Carbon Dioxide 27 Anion Gap 8.0 BUN 12 Creatinine 1.21 H Est Cr Clr Drug Dosing 77.9 Est GFR ( Amer) 64.8 Est GFR (Non-Af Amer) 55.9 BUN/Creatinine Ratio 10.2 Glucose 153 H Estimat Average Glucose Hemoglobin A1c Lactate Calcium 9.1 Magnesium 2.9 H Total Bilirubin 0.5 AST 17 ALT 40 Alkaline Phosphatase 88 Total Protein 8.3 H Albumin 4.2 Globulin 4.1 H Albumin/Globulin Ratio 1.0 Procalcitonin < 0.05 HCG, Qual Urine Color Yellow Urine Appearance Clear Urine pH 8.0 H Ur Specific [place] 1.013 Urine Protein Negative Urine Glucose (UA) Negative Urine Ketones Negative Urine Blood Negative Urine Nitrite Negative Urine Bilirubin Negative Urine Urobilinogen Negative Ur Leukocyte Esterase Negative Lyme Disease IgG Ab Lyme Disease IgM Ab COVID-19 Eval Order SARS-CoV-2 (PCR) Influenza Type A (PCR) Influenza Type B (PCR) RSV (RT-PCR) SARS-CoV-2, RNA, NAAT 11/13/20 11/13/20 11/14/20 23:20 23:25 01:29 WBC RBC Hgb Hct MCV MCH MCHC RDW Std Deviation RDW Coeff of [place] Plt Count MPV Immature Gran % (Auto) Neut % (Auto) Lymph % (Auto) [place] % (Auto) Eos % (Auto) Baso % (Auto) Neut # (Auto) Lymph # (Auto) [place] # (Auto) Eos # (Auto) Baso # (Auto) Immature Gran # (Auto) PT INR APTT PTT Ratio Sodium Potassium Chloride Carbon Dioxide Anion Gap BUN Creatinine Est Cr Clr Drug Dosing Est GFR ( Amer) Est GFR (Non-Af Amer) BUN/Creatinine Ratio Glucose Estimat Average Glucose Hemoglobin A1c Lactate 3.4 H* Calcium Magnesium Total Bilirubin AST ALT Alkaline Phosphatase Total Protein Albumin Globulin Albumin/Globulin Ratio Procalcitonin HCG, Qual Urine Color Urine Appearance Urine pH Ur Specific [place] Urine Protein Urine Glucose (UA) Urine Ketones Urine Blood Urine Nitrite Urine Bilirubin Urine Urobilinogen Ur Leukocyte Esterase Lyme Disease IgG Ab Negative Lyme Disease IgM Ab Negative COVID-19 Eval [facility] SARS-CoV-2 (PCR) Influenza Type A (PCR) Influenza Type B (PCR) RSV (RT-PCR) SARS-CoV-2, RNA, NAAT 11/14/20 11/14/20 11/14/20 01:29 01:34 06:26 WBC RBC Hgb Hct MCV MCH MCHC RDW Std Deviation RDW Coeff of [place] Plt Count MPV Immature Gran % (Auto) Neut % (Auto) Lymph % (Auto) [place] % (Auto) Eos % (Auto) Baso % (Auto) Neut # (Auto) Lymph # (Auto) [place] # (Auto) Eos # (Auto) Baso # (Auto) Immature Gran # (Auto) PT INR APTT PTT Ratio Sodium Potassium Chloride Carbon Dioxide Anion Gap BUN Creatinine Est Cr Clr Drug Dosing Est GFR ( Amer) Est GFR (Non-Af Amer) BUN/Creatinine Ratio Glucose Estimat Average Glucose 131 Hemoglobin A1c 6.2 H Lactate 1.9 Calcium Magnesium Total Bilirubin AST ALT Alkaline Phosphatase Total Protein Albumin Globulin Albumin/Globulin Ratio Procalcitonin HCG, Qual Urine Color Urine Appearance Urine pH Ur Specific [place] Urine Protein Urine Glucose (UA) Urine Ketones Urine Blood Urine Nitrite Urine Bilirubin Urine Urobilinogen Ur Leukocyte Esterase Lyme Disease IgG Ab Lyme Disease IgM Ab COVID-19 Eval Order SARS-CoV-2 (PCR) Influenza Type A (PCR) Influenza Type B (PCR) RSV (RT-PCR) SARS-CoV-2, RNA, NAAT NEGATIVE 11/14/20 11/14/20 11/14/20 06:26 06:26 09:05 WBC 16.27 H RBC 4.15 L Hgb 11.8 L Hct 37.1 MCV 89.4 MCH 28.4 MCHC 31.8 L RDW Std Deviation 46.7 H RDW Coeff of [place] 14.2 Plt Count 316 MPV 9.1 Immature Gran % (Auto) 0.8 Neut % (Auto) 74.2 Lymph % (Auto) 17.7 [place] % (Auto) 6.3 Eos % (Auto) 0.9 Baso % (Auto) 0.1 Neut # (Auto) 12.08 H Lymph # (Auto) 2.88 [place] # (Auto) 1.03 H Eos # (Auto) 0.14 Baso # (Auto) 0.01 Immature Gran # (Auto) 0.13 H PT INR APTT PTT Ratio Sodium 138 Potassium 4.5 Chloride 105 Carbon Dioxide 28 Anion Gap 5.0 BUN 12 Creatinine 0.92 Est Cr Clr Drug Dosing 102.1 Est GFR ( Amer) 90.3 Est GFR (Non-Af Amer) 77.9 BUN/Creatinine Ratio 12.6 Glucose 122 H Estimat Average Glucose Hemoglobin A1c Lactate Calcium 8.4 L Magnesium Total Bilirubin AST ALT Alkaline Phosphatase Total Protein Albumin Globulin Albumin/Globulin Ratio Procalcitonin HCG, Qual Urine Color Urine Appearance Urine pH Ur Specific [place] Urine Protein Urine Glucose (UA) Urine Ketones Urine Blood Urine Nitrite Urine Bilirubin Urine Urobilinogen Ur Leukocyte Esterase Lyme Disease IgG Ab Lyme Disease IgM Ab COVID-19 Eval Order CovFluRsv at [facility] SARS-CoV-2 (PCR) Influenza Type A (PCR) Influenza Type B (PCR) RSV (RT-PCR) SARS-CoV-2, RNA, NAAT 11/14/20 09:05 WBC RBC Hgb Hct MCV MCH MCHC RDW Std Deviation RDW Coeff of [place] Plt Count MPV Immature Gran % (Auto) Neut % (Auto) Lymph % (Auto) [place] % (Auto) Eos % (Auto) Baso % (Auto) Neut # (Auto) Lymph # (Auto) [place] # (Auto) Eos # (Auto) Baso # (Auto) Immature Gran # (Auto) PT INR APTT PTT Ratio Sodium Potassium Chloride Carbon Dioxide Anion Gap BUN Creatinine Est Cr Clr Drug Dosing Est GFR ( Amer) Est GFR (Non-Af Amer) BUN/Creatinine Ratio Glucose Estimat Average Glucose Hemoglobin A1c Lactate Calcium Magnesium Total Bilirubin AST ALT Alkaline Phosphatase Total Protein Albumin Globulin Albumin/Globulin Ratio Procalcitonin HCG, Qual Urine Color Urine Appearance Urine pH Ur Specific [place] Urine Protein Urine Glucose (UA) Urine Ketones Urine Blood Urine Nitrite Urine Bilirubin Urine Urobilinogen Ur Leukocyte Esterase Lyme Disease IgG Ab Lyme Disease IgM Ab COVID-19 Eval Order SARS-CoV-2 (PCR) NEGATIVE Influenza Type A (PCR) Negative Influenza Type B (PCR) Negative RSV (RT-PCR) Negative SARS-CoV-2, RNA, NAAT
[2020-11-14] MEDS: predniSONE 10 MG TABLET PO SCH (17:57)
[2020-11-14] MEDS ORDERED: FOLIC ACID 400 MCG TAB PO SCH (21:00)
[2020-11-14] MEDS ORDERED: traZODone HCL 100 MG TAB PO SCH (21:00)
[2020-11-14] MEDS ORDERED: CEROVITE ADV FORMULA TAB PO SCH (21:00)
--- NOTE | 2020-11-14 22:11 | 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 Note ---
Date of Service: November 14, 2020 Made aware by RN of episode of tachycardia, cardiac rate 130s. SBP 120s as per RN. Patient takes pindolol and clonidine as needed for tachycardia as home as per RN. Transient chest tightness while EKG being taken as per RN. EKG as per my interpretation : Rate 105, sinus tachycardia, LAD, LAFB, T wave abnormality septal leads, AP Transient chest tightness secondary to tachycardia missed [id number] home Rx Metoprolol BID in place of patient's nonformulary pindolol Will relay to AM provider.
[2020-11-14] MEDS ORDERED: METOPROLOL TARTRATE 25 MG TAB PO ONE (22:15)
[2020-11-14] MEDS ORDERED: HYDROmorphone INJ 0.5 MG/0.5 ML SYR IV PRN (23:56)
[2020-11-15] MEDS: PIPERACILLIN/TAZOBACTAM 4.5 GM in DEXTROSE 5% 100 ML IV SCH (06:10)
[2020-11-15] MEDS: LEVOTHYROXINE SODIUM 50 MCG TABLET PO SCH (06:10)
[2020-11-15] MEDS: predniSONE 10 MG TABLET PO SCH (08:21)
[2020-11-15] MEDS: MEMANTINE HCL 10 MG TAB PO SCH (08:21)
[2020-11-15] MEDS: DESIPRAMINE HCL 25 MG TAB PO SCH (08:22)
[2020-11-15] MEDS: PANTOprazole 40 MG TAB PO SCH (08:22)
[2020-11-15] MEDS: CETIRIZINE HCL 10 MG TABLET PO SCH (08:22)
[2020-11-15] MEDS: DULoxetine HCL 30 MG CAP PO SCH (08:22)
[2020-11-15] MEDS ORDERED: ACETAMINOPHEN 325 MG TAB PO PRN (08:29)
[2020-11-15] MEDS ORDERED: DOCUSATE SODIUM 100 MG CAP PO SCH (09:00)
[2020-11-15] MEDS ORDERED: METOPROLOL TARTRATE 25 MG TAB PO SCH (09:00)
[2020-11-15 09:16] LABS: Basophils # (auto) 0.01 K/uL (0-0.2); Basophils % (auto) 0.1 %; Eosinophils % (auto) 0.6 %; Hematocrit (blood only) 37.3 % (37-47); Hemoglobin 12.4 g/dL (12.0-16.0); Immature Granulocytes # (auto) 0.06 K/uL (0.00-0.02); Immature Granulocytes % (auto) 0.4 %; Lymphocytes % (auto) 9.5 %; Mean Corpuscular Hemoglobin 29.5 pg (25-34); Mean Corpuscular Hgb Conc 33.2 g/dL (32-36); Mean Corpuscular Volume 88.6 fL (80-100); Mean Platelet Volume 9.1 fL (7.4-10.4); Monocytes # (auto) 0.63 K/uL (0.11-0.59); Neutrophils # (auto) 13.43 K/uL (1.4-6.5); Neutrophils % (auto) 85.4 %; Platelet Count 327 K/uL (130-400); RDW Coefficient of Variation 14.3 % (11.5-14.5); RDW Standard Deviation 46.5 fL (36.4-46.3); Red Blood Count 4.21 M/uL (4.2-5.4); White Blood Count 15.73 K/uL (4.8-10.8)
[2020-11-15 09:45] LABS: BUN Creatinine Ratio 12.8 (10-20); Calcium 9.2 mg/dl (8.5-10.1); Creatinine Clr Calc Pharmacy 78.3 ml/min; Est GFR (African American) 65.5; Est GFR (Non-African American) 56.5; Potassium 4.4 mmol/L (3.5-5.1)
[2020-11-15] MEDS ORDERED: IBUPROFEN 600 MG TAB PO PRN (10:27)
--- NOTE | 2020-11-15 10:27 | Surgery Progress Note ---
Date of Service November 15, 2020 Assessment & Plan (1) Sepsis: POD # 5 s/p hemorrhoidectomy at [facility] by [facility] Colorectal Dr. Persaud. Afebrile since admission. Leukocytosis has improved to 15K today. Ct scan of abdomen and pelvis with no evidence of abscess. pain better controlled today, afebrile, vss, had episode of tachycardia last night. EKG Plan: Okay for discharge from surgery standpoint with 7 days of PO Cipro and Flagyl Recommend continuing bowel regimen and pain management as directed by colorectal surgeon in setting of recent hemorrhoidectomy F/u with Dr. Persaud as scheduled (2) Fever: afebrile since admission Dr. Carr has seen patient, agrees with above. Admission and Anticipated Discharge Date Admission Date: November 14, 2020 Subjective feeling better today, only requiring narcotic pain medication after bowel movement. Small bowel movement this morning. no n/v no fevers or sweats tolerating diet wants to go home Physical Exam Constitutional: WD/WN, vitals as above Respiratory: normal respiratory effort; no respiratory distress and no labored breathing Psychiatric: A+Ox3, euthymic affect Results & Data ([facility]) Vital Signs (Past 12 Hours) Vital Signs Temp Pulse Pulse Resp BP Pulse Ox 11/15/20 07:19 36.8 C 80 18 124/81 94 11/15/20 07:15 80 11/15/20 06:14 80 126/76 11/15/20 03:05 37.1 C 95 H 19 91/58 L 92 11/14/20 23:34 36.9 C 18 L 18 160/101 H 95 11/14/20 22:32 99 H Laboratory Results 11/15/20 11/15/20 11/14/20 Range/Units 09:03 09:03 22:54 WBC 15.73 H (4.8-10.8) K/uL RBC 4.21 (4.2-5.4) M/uL Hgb 12.4 (12.0-16.0) g/dL Hct 37.3 (37-47) % MCV 88.6 (80-100) fL MCH 29.5 (25-34) pg MCHC 33.2 (32-36) g/dL RDW Std Deviation 46.5 H (36.4-46.3) fL RDW Coeff of Cameron 14.3 (11.5-14.5) % Plt Count 327 (130-400) K/uL MPV 9.1 (7.4-10.4) fL Immature Gran % (Auto) 0.4 % Neut % (Auto) 85.4 % Lymph % (Auto) 9.5 % [place] % (Auto) 4.0 % Eos % (Auto) 0.6 % Baso % (Auto) 0.1 % Neut # (Auto) 13.43 H (1.4-6.5) K/uL Lymph # (Auto) 1.50 (1.2-3.4) K/uL [place] # (Auto) 0.63 H (0.11-0.59) K/uL Eos # (Auto) 0.10 (0-0.5) K/uL Baso # (Auto) 0.01 (0-0.2) K/uL Immature Gran # (Auto) 0.06 H (0.00-0.02) K/uL APTT (21.0-31.0) Seconds PTT Ratio Sodium 134 L (136-145) mmol/L Potassium 4.4 (3.5-5.1) mmol/L Chloride 99 (98-107) mmol/L Carbon Dioxide 28 (21-32) mmol/L Anion Gap 7.0 (3-11) BUN 15 (7-18) mg/dl Creatinine 1.20 (0.6-1.2) mg/dl Est Cr Clr Drug Dosing 78.3 ml/min Est GFR ( Amer) 65.5 Est GFR (Non-Af Amer) 56.5 BUN/Creatinine Ratio 12.8 (10-20) Glucose 175 H (70-99) mg/dl Calcium 9.2 (8.5-10.1) mg/dl Troponin I < 0.015 (0-0.045) ng/ml 11/14/20 Range/Units 22:54 WBC (4.8-10.8) K/uL RBC (4.2-5.4) M/uL Hgb (12.0-16.0) g/dL Hct (37-47) % MCV (80-100) fL MCH (25-34) pg MCHC (32-36) g/dL RDW Std Deviation (36.4-46.3) fL RDW Coeff of Cameron (11.5-14.5) % Plt Count (130-400) K/uL MPV (7.4-10.4) fL Immature Gran % (Auto) % Neut % (Auto) % Lymph % (Auto) % [place] % (Auto) % Eos % (Auto) % Baso % (Auto) % Neut # (Auto) (1.4-6.5) K/uL Lymph # (Auto) (1.2-3.4) K/uL [place] # (Auto) (0.11-0.59) K/uL Eos # (Auto) (0-0.5) K/uL Baso # (Auto) (0-0.2) K/uL Immature Gran # (Auto) (0.00-0.02) K/uL APTT 25.0 (21.0-31.0) Seconds PTT Ratio 1.0 Sodium (136-145) mmol/L Potassium (3.5-5.1) mmol/L Chloride (98-107) mmol/L Carbon Dioxide (21-32) mmol/L Anion Gap (3-11) BUN (7-18) mg/dl Creatinine (0.6-1.2) mg/dl Est Cr Clr Drug Dosing ml/min Est GFR ( Amer) Est GFR (Non-Af Amer) BUN/Creatinine Ratio (10-20) Glucose (70-99) mg/dl Calcium (8.5-10.1) mg/dl Troponin I (0-0.045) ng/ml (1) Sepsis Sepsis acute organ dysfunction status: unspecified Sepsis type: sepsis due to unspecified organism Qualified Code(s): A41.9 - Sepsis, unspecified organism
[2020-11-15] MEDS ORDERED: POLYETHYLENE (MIRALAX) 17 GM PACK PO SCH (10:30)
--- NOTE | 2020-11-15 12:41 | Hospitalist Progress Note ---
Date of Service November 15, 2020 Assessment & Plan (1) Fever: (1) Fever -- s/p Post Hemorrhoidectomy 4 days prior to admission -- CT abd/pelvis: unrevealing -- blood cultures: negative x 24 hours, continue to follow -- given IV Zoysn Gen Surg consulted- Bacitracin ordered -- patient clinically improved remained afebrile -- d/c on 7 day course of Augmentin BID follow blood cultures (2) Acute Kidney Injury -- prerenal etiology -- resolved with IV fluids (3) Worsening migraine headache, neck and back pain Recent history of head/neck trauma -- Brain MRI: no acute findings Cervical MRI: C5-C6 degenerative disease Thoracic MRI: unrevealing (4) Mood disorder, at baseline (5) PCOS, insulin resistance as per records -- hemoglobin A1c of 6.2 -- counselled on DM diet -- continue to monitor and close ff up as outpatient (6) Hypothyroidism, euthyroid as of recent outpatient TSH (7) Gastroparesis at baseline Disposition d/c home today ff up with PCP in 1 week ff up with Gen Surg [facility] in 2 weeks plan of care discussed with patient in detail and at length all questions answered she is understanding, agreeable, comfortable with the plan of care Admission and Anticipated Discharge Date Admission Date: November 14, 2020 Subjective ff up for fever, post op hemorrhoidectomy seen resting in bed, comfortable in good spirits states she feels much better overall rectal pain much better (+) small BM, no blood no abdominal pain, nausea tolerating diet well headache, neck and arm pain resolved no other symptoms states she is ready and would like to be discharged today Review of Systems Review of Systems: All systems reviewed & are unremarkable except as noted in Subjective Physical Exam Physical Exam: General- oriented x 3, not in distress, speaks in sentences with no effort or accessory muscle use Eyes- anicteric Neck- no JVD Lungs- clear breath sounds bilaterally no crackles/wheezing Heart- normal rate, regular rhythm; no murmurs Abdomen- normal bowel sounds, nondistended, soft, nontender Extremities- no pretibial edema, no calf tenderness Neuro- alert, oriented x 3; no gross focal neurologic deficits Skin- warm & dry Results & Data Results & Data ([facility]) Vital Signs (Past 12 Hours) Vital Signs Temp Pulse Pulse Resp BP Pulse Ox 11/15/20 11:10 36.9 C 89 18 129/80 94 11/15/20 07:19 36.8 C 80 18 124/81 94 11/15/20 07:15 80 11/15/20 06:14 80 126/76 11/15/20 03:05 37.1 C 95 H 19 91/58 L 92 all noted and reviewed including below Laboratory Results Laboratory Results - last 24 hr 11/14/20 11/14/20 11/15/20 22:54 22:54 09:03 WBC 15.73 H RBC 4.21 Hgb 12.4 Hct 37.3 MCV 88.6 MCH 29.5 MCHC 33.2 RDW Std Deviation 46.5 H RDW Coeff of Cameron 14.3 Plt Count 327 MPV 9.1 Immature Gran % (Auto) 0.4 Neut % (Auto) 85.4 Lymph % (Auto) 9.5 [place] % (Auto) 4.0 Eos % (Auto) 0.6 Baso % (Auto) 0.1 Neut # (Auto) 13.43 H Lymph # (Auto) 1.50 [place] # (Auto) 0.63 H Eos # (Auto) 0.10 Baso # (Auto) 0.01 Immature Gran # (Auto) 0.06 H APTT 25.0 PTT Ratio 1.0 Sodium Potassium Chloride Carbon Dioxide Anion Gap BUN Creatinine Est Cr Clr Drug Dosing Est GFR ( Amer) Est GFR (Non-Af Amer) BUN/Creatinine Ratio Glucose Calcium Troponin I < 0.015 11/15/20 09:03 WBC RBC Hgb Hct MCV MCH MCHC RDW Std Deviation RDW Coeff of Cameron Plt Count MPV Immature Gran % (Auto) Neut % (Auto) Lymph % (Auto) [place] % (Auto) Eos % (Auto) Baso % (Auto) Neut # (Auto) Lymph # (Auto) [place] # (Auto) Eos # (Auto) Baso # (Auto) Immature Gran # (Auto) APTT PTT Ratio Sodium 134 L Potassium 4.4 Chloride 99 Carbon Dioxide 28 Anion Gap 7.0 BUN 15 Creatinine 1.20 Est Cr Clr Drug Dosing 78.3 Est GFR ( Amer) 65.5 Est GFR (Non-Af Amer) 56.5 BUN/Creatinine Ratio 12.8 Glucose 175 H Calcium 9.2 Troponin I
--- NOTE | 2020-11-15 12:56 | Discharge Summary ---
Date of Service November 15, 2020 Admission HPI Per Admitting Provider History is obtained from the patient and records. Medical history significant for chronic migraine on Namenda, mood disorder, PCOS, insulin resistance as per records, hypothyroidism, gastroparesis, history syringomyelia as per records. Last confinement August 2019 for maxillary abscess and facial cellulitis status post surgery. Recent ER visit 2 weeks ago for head injury after accidental closure of car delvalle door over patient's head by her partner. Achy headache and neck, mid back, and low back pain complaints without LOC. Tingling numbness of both arms and legs with some weakness as per patient. Unremarkable imaging at [facility] ER. Worsening migraine symptoms and of chronic neck and midback pain in the ensuing weeks as per patient along with tingling numbness of the extremities with some leg weakness as per patient. Patient underwent elective hemorrhoidectomy of symptomatic hemorrhoidal disease at [facility] 4 [facility] ago. Tolerable rectal pain with intermittent bleeding post procedure. Good appetite as per patient. The last 2 days, patient noted low-grade fever 100.1 with chills at home. Denies chest pain cough, S OB, abdominal pain, diarrhea, dysuria symptoms. Scant white rectal drainage as per patient. Patient given Zosyn at the ER for possible sepsis. MEDICAL HISTORY: As above. SURGERIES: Cholecystectomy, sinus surgery, Eye surgery, hemorrhoidectomy FAMILY HISTORY: Diabetes, heart disease. 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, disabled Admission Exam Per Admitting Provider GENERAL: uncomfortable, tearful, obese, no respiratory distress SKIN: Normal color, warm HEENT: [place] palpebral conjunctivae, no ptosis, dry buccal mucosa NECK : Supple, short neck, minimal tenderness CHEST : CTA, no tenderness HEART : RRR, no obvious murmurs ABDOMEN: Some distention, nontender RECTAL : Dried blood around anal rim, sutures noted on the anal rim BACK : Mid back tenderness EXTREMITIES : Minimal LE swelling, no LE tenderness, no other conspicuous deformities noted NEUROLOGIC : Coherent, no facial asymmetry, MMTS BUE/BLE 4/5, gait and stance not assessed Principal Diagnosis FEVER ,S/P HEMORRHOIDECTOMY Discharge Exam General- oriented x 3, not in distress, speaks in sentences with no effort or accessory muscle use Eyes- anicteric Neck- no JVD Lungs- clear breath sounds bilaterally no crackles/wheezing Heart- normal rate, regular rhythm; no murmurs Abdomen- normal bowel sounds, nondistended, soft, nontender Extremities- no pretibial edema, no calf tenderness Neuro- alert, oriented x 3; no gross focal neurologic deficits Skin- warm & dry Discharge Data Allergies Allergy/AdvReac Type Severity Reaction Status Date / Time morphine Allergy Severe Hives,itchiness,nausea Verified 11/14/20 01:38 and vomiting topiramate Allergy Severe neurological Verified 11/14/20 01:38 symptoms cephalexin Allergy Mild rash Verified 11/14/20 01:38 Consultations 11/14/20 01:08 ED Decision to Admit Stat 11/14/20 09:28 Consult General Surgery Routine Ordered Studies 11/13/20 23:14 CT abd pelvis IV con only Urgent FINDINGS: Lung bases are unremarkable. No pneumatosis, free air or portal venous gas is present. Hepatic steatosis is noted. Borderline splenomegaly is unchanged. There is no biliary ductal dilatation status post cholecystectomy. The adrenal glands, kidneys and pancreas are unremarkable. There is no hydronephrosis. There is no peripancreatic infiltration. There is no evidence for a bowel obstruction. The appendix is normal. No fluid collection is identified to suggest an abscess. Note is made of a 3.7 cm suspected left ovarian cyst. Additional hypodensities within the ovaries may reflect follicles or dilated fallopian tubes. No suspicious osseous lesions are present. No acute fractures are identified within visualized skeletal structures. IMPRESSION: 1. No acute process within the abdomen or pelvis. 2. Normal appendix. No bowel obstruction. No fluid collection to suggest an abscess. 3. 3.7 cm suspected left ovarian cyst. Additional hypodensities within the ovaries may reflect follicles or dilated fallopian tubes. 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 Otherwise, there are no areas of restricted diffusion to suggest acute infarction. The midline structures are intact. The paranasal sinuses are clear. The mastoid air cells are clear. The ventricles and sulci are within normal limits for age. There is no mass, hematoma, midline shift. The major vascular flow-voids at the skull base are well maintained. Postcontrast sequences show no areas of abnormal enhancement. IMPRESSION: Right-sided cochlear implant resulting in artifact. Otherwise, no acute intracranial abnormality. 11/14/20 03:04 MR cervical spine wo/w con Urgent FINDINGS: Mild motion artifact. Straightening of the cervical spine. No fracture or subluxation. Mild disc space narrowing at C5-C6 and C6-C7. The cervical spinal cord is normal and course, caliber, and signal intensity. No abnormal enhancement within the cervical spine. Prevertebral soft tissues and the C1-C2 interval are intact. C2-C3: No significant central canal or neural foraminal narrowing. C3-C4: No significant central canal or neural foraminal narrowing. C4-C5: No significant central canal or neural foraminal narrowing. C5-C6: Small broad-based posterior disc bulge resulting in mild central canal and mild left-sided neural foraminal narrowing. C6-C7: No significant central canal or neural foraminal narrowing. C7-T1: No significant central canal or neural foraminal narrowing. IMPRESSION: 1. Motion artifact. No fracture or subluxation within the cervical spine. 2. Normal cervical spinal cord. 3. Mild degenerative disc disease at C5-C6. MR thoracic spine wo/w con Urgent FINDINGS: Motion artifact results in suboptimal evaluation. No fracture or subluxation within the thoracic spine. Paraspinal soft tissues are unremarkable. T8 v ertebral body hemangioma is noted. Postcontrast sequences show no areas of abnormal enhancement. Disc spaces are preserved. The thoracic spinal cord appears to be normal and course, caliber, and signal intensity. No significant central canal or neural foraminal narrowing. IMPRESSION: Suboptimal evaluation due to motion artifact. However, no significant abnormality identified. Hospital Course (1) Fever: (1) Fever -- s/p Post Hemorrhoidectomy 4 days prior to admission -- CT abd/pelvis: unrevealing -- blood cultures: negative x 24 hours, continue to follow -- given IV Zoysn for possible component of mild infection on the surgical site/ bacterial translocation Gen Surg consulted- Bacitracin ordered -- patient clinically improved remained afebrile -- d/c on 7 day course of Augmentin BID follow blood cultures ff up with Gen Surg [facility] in 2 weeks as scheduled (2) Acute Kidney Injury -- prerenal etiology -- resolved with IV fluids (3) Worsening migraine headache, neck and back pain Recent history of head/neck trauma -- Brain MRI: no acute findings Cervical MRI: C5-C6 degenerative disease Thoracic MRI: unrevealing -- resolved on discharge day ff up as outpatient (4)Abnormal CT Abd/pelvis findings: Please refer to full report in the Ordered Studies section above Hepatic steatosis is noted. Borderline splenomegaly is unchanged. T Note is made of a 3.7 cm suspected left ovarian cyst. Additional hypodensities within the ovaries may reflect follicles or dilated fallopian t ubes. Further work up, management, and ff up as outpatient (5) Mood disorder, at baseline (6) PCOS, Pre Diabetes -- insulin resistance as per records -- hemoglobin A1c of 6.2 -- counselled on DM diet -- continue to monitor and close ff up as outpatient (7) Hypothyroidism, euthyroid as of recent outpatient TSH (8) Gastroparesis at baseline Disposition d/c home today ff up with PCP in 1 week ff up with Gen Surg [facility] in 2 weeks plan of care discussed with patient in detail and at length all questions answered she is understanding, agreeable, comfortable with the plan of care Total Time Total Time Spent Total Time Spent (In Minutes): 45 minutes Discharge Plan Discharge Items Patient Disposition: Home - Self-Care Reason For Visit: ARF Discharge Diagnosis: FEVER, S/P HEMORRHOIDECTOMY DEHYDRATION Condition on Discharge: Good Activity: Resume your previous activity Activity Comment: GRADUALLY TOLERATED Driving/Machine Use: NO DRIVING UNTIL RE-EVALUATED AND ALLOWED BY PRIMARY CARE PHYSICIAN Non-emergency contact: Primary Care Provider Call non-emergency contact if: you have any medication questions, your symptoms worsen, your pain is not controlled, your pain is worsening, your pain is unusual for you, your pain is concerning for you, you have a fever, your wound has increased drainage and your wound pain has increased Follow-up/Referrals: Melania Zhou DO [Primary Care Provider] - (Date & Time 11/21/2020 9:00 AM Provider Lola Redd MD [facility] ) Diet: Carb Consistent or DM2 Addtl Attending Provider Instructions: YOUR NEW MEDICATION IS AUGMENTIN- ANTIBIOTIC. DRINK PLENTY OF FLUIDS. ALWAYS AMBULATE FREQUENTLY TO PREVENT BLOOD CLOTS. MAINTAIN LOW CARBOHYDRATE DIET. CALL PRIMARY CARE PHYSICIAN/GENERAL SURGEON OR RETURN TO THE ER IF WITH RECURRENCE/WORSENIGN OF SYMPTOMS. FOLLOW UP WITH PRIMARY CARE PHYSICIAN OUTLINED ABOVE. FOLLOW UP WITH GENERAL SURGEON SCHEDULED. Pending Studies at Discharge: Yes Studies:: FINAL BLOOD CULTURE RESULTS TAKEN AT [facility] Stand-Alone Forms: My [facility], Smoking Cessation Medications and DC Order Prescriptions: New amoxicillin-pot clavulanate [Augmentin] 875-125 mg tablet 1 tab PO BID Qty: 14 RF: 0 Continued baclofen 20 mg tablet 20 mg PO UD PRN (Reason: Headache/Neck Pain) RF: 0 trazodone 50 mg tablet 100 mg PO HS RF: 0 tizanidine 4 mg tablet 4 - 8 mg PO HS RF: 0 potassium chloride 10 mEq tablet extended release 10 meq PO HS RF: 0 folic acid 400 mcg tablet 400 mcg PO HS RF: 0 levothyroxine 50 mcg tablet 50 mcg PO QAM RF: 0 pantoprazole 40 mg tablet,delayed release (DR/EC) 40 mg PO BID RF: 0 promethazine 25 mg tablet 25 mg PO Q6H PRN (Reason: Nausea) RF: 0 memantine 10 mg tablet 10 mg PO BIDM RF: 0 duloxetine 30 mg capsule,delayed release(DR/EC) 90 mg PO DAILY RF: 0 fluticasone propionate [Flonase Allergy Relief] 50 mcg/actuation [place],Suspension 2 spray INTRANASAL BID PRN (Reason: Allergy Symptoms) RF: 0 zolmitriptan 5 mg Tablet 2.5 - 5 mg PO BID PRN (Reason: Migraine Headache) RF: 0 magnesium gluconate [Mag-G] 27 mg magnesium (500 mg) tablet 125 mg PO HS RF: 0 multivitamin with minerals Tablet 1 tab PO HS RF: 0 oxycodone [Roxicodone] 5 mg tablet 5 mg PO Q6H PRN (Reason: pain) Qty: 12 RF: 0 cetirizine 10 mg Tablet 10 mg PO QAM RF: 0 albuterol sulfate 90 mcg/actuation HFA aerosol inhaler 2 puff inhalation Q6H PRN (Reason: Wheezing) RF: 0 Emgality Pen 120 mg/mL pen injector 120 mg SUBCUT MONTHLY RF: 0 clonidine HCl 0.1 mg tablet 0.1 mg PO BID PRN (Reason: Hypertension) RF: 0 diphenoxylate-atropine 2.5-0.025 mg tablet 1 tab PO QID PRN (Reason: Diarrhea) RF: 0 hydroxyzine HCl 25 mg tablet 25 mg PO QAM RF: 0 prednisone 10 mg tablet 10 mg PO UD RF: 0 desipramine 25 mg tablet 25 mg PO DAILY RF: 0 gabapentin 300 mg capsule 300 mg PO UD RF: 0 pindolol 5 mg tablet 5 mg PO UD RF: 0 ergocalciferol (vitamin D2) [Vitamin D2] 1,250 mcg (50,000 unit) Capsule 1,250 mcg PO WK RF: 0 lorazepam 0.5 mg tablet 0.5 mg PO UD PRN (Reason: procedures/panic) RF: 0 dicyclomine [Bentyl] 20 mg Tablet 20 mg PO QID PRN (Reason: Abdominal Discomfort) RF: 0 Discharge Orders: Discharge Order (Routine); Ordered 11/15/20 Ordered By: Pedro Ceja/Anderson Patient Handouts: Prediabetes, 5 Steps for Eating Healthier, A1C Admission Data Admit Date/Time: 11/14/20 02:15 Attending Provider: Pedro Pineda Admit Provider: Escobar Holland Primary Care Provider: Melania Zhou Other Providers: Escobar Holland ; Ajay Torres ; Alice Dennison ; Estephania Harmon ; David Lester ; Roldan Weller ; Deysi Brewster ; Oxana Coronado ; Christian Avelar Jr ; Darlene Carr ; Arsh Flores ; Flower Mancia
--- NOTE | 2020-11-16 05:40 | Electrocardiogram Report ---
Test Reason : Blood Pressure : / mmHG Vent. Rate : 101 BPM Atrial Rate : 101 BPM P-R Int : 130 ms QRS Dur : 080 ms QT Int : 334 ms P-R-T Axes : 034 -15 037 degrees QTc Int : 433 ms Poor data quality, interpretation may be adversely affected Sinus tachycardia Low voltage QRS Cannot rule out Anterior infarct , age undetermined Abnormal ECG When compared with ECG of 23-FEB-2020 18:24, No significant change was found Confirmed by Christopher Sandoval ([id number]) on 11/16/2020 5:40:47 AM Referred By: Myrtle Persaud Confirmed By:Christopher Sandoval
--- NOTE | 2020-11-21 09:17 | Coding Query ---
CODING QUERY To promote full compliance with coding requirements relating to patient care, provider participation is requested in all cases of ball holder uncertainty. Please assist us with the question(s) below: Coding Question(s): 1. Sepsis is documented on the ER, H&P, Surgical Consultation and 11/15 Surgery Progress Note but not mentioned on Discharge Summary and Discharge Summary documents Fever, s/p Hemorrhoidectomy and there is documentation under Hospital Course of, "given IV Zoysn for possible component of mild infection on the surgical site/ bacterial translocation Gen Surg consulted- Bacitracin ordered". Please specify below, in your clinical opinion. ( ) Fever is Sepsis due to possible component of mild infection on the surgical site - this is Postoperative Complication Infection ( x ) Fever is Not Sepsis and is due to possible component of mild infection on the surgical site - this is Postoperative Complication Infection ( ) Fever is Sepsis, due to Other: Please Specify ( ) Fever is Not Sepsis and there is No Postoperative Complication Infection ( ) Fever is Other: Please Specify Physician's Response(s): Thank you Monique Del Rio Principal Diagnosis: "that condition established after study, to be chiefly responsible for occasioning the admission of the patient to the hospital for care." Co-Existing Principal Diagnosis: "when two or more diagnoses equally meet the criteria for principal diagnosis as determined by the circumstances of admission, diagnostic work up, and/or therapy provided, and the Alphabetic Index, Tabular List, or another coding guideline does not provide sequencing direction, any one of the diagnoses may be sequenced first." "When the physician has documented what appears to be a current diagnosis in the body of the record, but has not included the diagnosis in the final diagnostic statement, the physician should be asked whether the diagnosis should be added." (Source [facility]oding [facility] 2 QTR90. p3-4) EDEL
== END 2020-11-15 13:34 | disposition home or self-care (01) | DRG 863 ==
LOC: ED 22:56 → 2N 11-14 02:15

== ENCOUNTER 2022-03-05 23:19 | Inpatient (IN) ==
--- NOTE | 2022-03-05 23:40 | Emergency Department Note ---
History of Present Illness General Chief complaint: Cardiac Assessment Stated complaint: chest pain, edema in extremities, L arm numb Time Seen by Provider: 03/05/22 23:27 History of Present Illness Maximum Pain Intensity: 7 41 yo Female presents emergency department with a an 11-day history of increased bilateral lower extremity edema. 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 Patient states that she feels like she is short of breath at times. Patient denies any pleuritic chest pain. Patient has a history of hypertension and she states she used to take Lasix. Patient was concerned about the swelling in her legs. Patient states that she also sustained a sunburn for the past 11 days while she was sitting selling [email or web address]. Home Medications Medication Instructions Recorded Confirmed Type baclofen 20 mg tablet 5 mg PO BID PRN 06/06/18 03/06/22 History duloxetine 30 mg capsule,delayed 120 mg PO DAILY 06/06/18 03/06/22 History release folic acid 400 mcg tablet 400 mcg PO HS 06/06/18 03/06/22 History levothyroxine 50 mcg tablet 50 mcg PO QAM 06/06/18 03/06/22 History memantine 10 mg tablet 10 mg PO BIDM 06/06/18 03/06/22 History pantoprazole 40 mg tablet,delayed 40 mg PO BID 06/06/18 03/06/22 History release potassium chloride 10 mEq 10 meq PO HS 06/06/18 03/06/22 History tablet,extended release promethazine 25 mg tablet 25 mg PO Q6H PRN 06/06/18 03/06/22 History tizanidine 4 mg tablet 4 - 8 mg PO HS 06/06/18 03/06/22 History trazodone 50 mg tablet 100 mg PO HS PRN 06/06/18 03/06/22 History zolmitriptan 5 mg tablet 2.5 - 5 mg PO BID PRN 06/06/18 03/06/22 History cetirizine 10 mg tablet 10 mg PO QAM 02/17/19 03/06/22 History magnesium gluconate 27 mg 125 mg PO HS 05/19/19 03/06/22 History magnesium (500 mg) tablet (Mag-G) galcanezumab-gnlm 120 mg/mL 120 mg SUBCUT MONTHLY 08/03/19 03/06/22 History subcutaneous pen injector (Emgality Pen) clonidine HCl 0.1 mg tablet 0.1 mg PO BID PRN 02/18/20 03/06/22 History diphenoxylate-atropine 2.5 1 tab PO QID PRN 02/18/20 03/06/22 History mg-0.025 mg tablet hydroxyzine HCl 25 mg tablet 25 mg PO QAM 02/18/20 03/06/22 History multivitamin with minerals 1 tab PO HS 09/10/20 03/06/22 History desipramine 25 mg tablet 25 mg PO DAILY 11/13/20 03/06/22 History gabapentin 300 mg capsule See Rx Instructions .ROUTE .COMPLEX 11/13/20 03/06/22 History pindolol 5 mg tablet 5 mg PO BID 11/13/20 03/06/22 History dicyclomine 20 mg tablet 20 mg PO QID PRN 11/14/20 03/06/22 History ergocalciferol (vitamin D2) 1,250 1,250 mcg PO WK 11/14/20 03/06/22 History mcg (50,000 unit) capsule (Vitamin D2) lorazepam 0.5 mg tablet 0.5 mg PO UD PRN 11/14/20 03/06/22 History rimegepant 75 mg disintegrating 75 mg PO UD PRN MDD 2 days a week 08/01/21 03/06/22 History tablet (Nurtec ODT) lidocaine 5 % topical patch 1 patch TOPICAL DAILY PRN 10/29/21 03/06/22 History (Lidoderm) tramadol 50 mg tablet 50 mg PO Q6 PRN 10/29/21 03/06/22 History Allergies Allergy/AdvReac Type Severity Reaction Status Date / Time morphine Allergy Severe Hives,itchiness,nausea Verified 03/06/22 00:06 and vomiting topiramate Allergy Severe neurological Verified 03/06/22 00:06 symptoms cephalexin Allergy Mild rash Verified 03/06/22 00:06 Past Med/Surg History Medical History Barretts esophagus Chronic neck pain Deafness in right ear Degenerative disc disease Depression Gastroesophageal reflux disease Gastroparesis High blood pressure History of bronchitis inhaler prn Hypothyroidism Hypothyroidism Insulin resistance Migraine Obesity Polycystic ovaries Surgical History H/O sinus surgery x2--recent on 08/2019 History of colonoscopy History of esophagogastroduodenoscopy (EGD) History of eye surgery x2 on right History of tooth extraction History of wisdom tooth extraction S/P cholecystectomy Family History Mother Family history of reaction to anesthesia after 2 hours afer breast cancer sx "her lungs started filling up with fluid" per pt was told it was d/t anesthesia Breast cancer Environmental allergies Heart disease Hypertension Grandfather (Paternal) Family history of diabetes mellitus Father Cancer Grandfather Cancer Other Diabetes Lung disease No family history of bleeding disorder Seizure Social History Smoking Status: Never smoker Second Hand Exposure: No; Hx Alcohol Use: Yes Alcohol type: other Alcohol Intake Frequency Comment: 2x per year Hx Substance Use: No Preferred Language: Thai 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 Ability: Effective 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 Beliefs That Will Affect Care: None marital status: Current Living Situation: Spouse current occupational status: disabled Feels Safe at Home: Yes Assistive Devices: None Review of Systems A total of 10 systems reviewed and were otherwise negative Constitutional: no fever Cardiovascular: + chest pain and + edema; no calf pain Physical Exam Vital Signs Vital Signs - 24 hr 03/05/22 23:26 03/05/22 23:56 03/05/22 23:58 Temperature 37 C Temperature Source Temporal Artery Scan Pulse Rate 97 H 90 Pulse Rate [Apical] 86 Pulse Rhythm Regular Regular Pulse Rhythm [Apical] Regular Pulse Strength Normal Pulse Strength [Apical] Normal Respiratory Rate 26 H 20 20 Respiratory Effort / Characteristics Non-Labored Spontaneous Non-Labored Spontaneous SOB on Exertion Respiratory Depth Normal Normal Respiratory Pattern Regular Regular Blood Pressure 135/110 H Blood Pressure Mean 118 Blood Pressure Position Sitting Blood Pressure Position [Left Arm] Semi-fowlers Pulse Oximetry 97 99 100 Oxygen Delivery Method Room Air Room Air Room Air Oxygen Flow Rate 0 Sepsis Recent Fever Within 48 Hours No Sepsis New/Unexplained Change in Mental Status N/A Sepsis Action Taken by Nursing No Action Required VITAL SIGNS - Vital signs and nursing notes were reviewed. GENERAL - No acute distress. Communicates well with provider and answers questions appropriately. SKIN - Without rashes. HEAD - NC/AT. EYES - PERRL with EOMI bilaterally. Sclera anicteric. Palpebral conjunctiva pink and moist with no injection noted. EARS - No deformities of external structures noted on gross examination bilaterally. NOSE - Midline and without cyanosis. No epistaxis or purulent drainage noted. Septum midline without deviation or septal hematoma noted. MOUTH/OROPHARYNX - Without perioral cyanosis. Buccal mucosa pink and moist NECK - Neck with FROM. Supple to palpation. LUNGS - Chest wall symmetric without accessory muscle use, intercostals retractions, or central cyanosis. Normal vesicular breath sounds CTA B/L. No wheezes, rales, or rhonchi appreciated. CARDIAC - RRR with S1/S2. No murmur, rubs, or gallops appreciated. ABDOMEN - Abdominal contour soft without pulsations or visible masses. BS normoactive all four quadrants. No tenderness, palpable masses, hepatosplenomegaly, or ascites noted. EXTREMITIES - No clubbing or peripheral cyanosis. Bilateral pitting edema is present, calves are nontender;+5/5 strength noted in UE/LE bilaterally. NEUROLOGIC - Cranial nerves II through XII grossly intact. PSYCH - A&Ox3 and cooperates fully with examiner. Pt is very pleasant and interacts well with examiner. Course Reevaluation(s) Reevaluation #1: Patient was started on IV Lasix, aspirin, the case was discussed with the [facility] hospitalist for admission Time: 01:06 Administered Medications Discontinued Medications Aspirin (Aspirin Chew 324 Mg) 324 mg PO NOW STA Stop: 03/06/22 00:13 Last Admin: 03/06/22 00:17 Dose: 324 mg Documented by: [id number] Furosemide (Furosemide 40 Mg/4 Ml Vial) 40 mg IV ONE ONE Stop: 03/06/22 00:13 Last Admin: 03/06/22 00:18 Dose: 40 mg Documented by: [id number] Potassium Chloride (Potassium Chloride Crtab 20 Meq Tabcr) 40 meq PO NOW STA Stop: 03/06/22 00:20 Last Admin: 03/06/22 00:31 Dose: 40 meq Documented by: [id number] Medical Decision Making Medical Records Attestation: I reviewed the patient's medical records. Home Medications Current Medication List: was personally reviewed by me Laboratory Data Attestation: I reviewed the patient's lab results. Result diagrams: 03/05/22 23:32 07/04/22 23:32 Lab Results 03/05/22 03/05/22 03/05/22 Range/Units 23:32 23:32 23:32 WBC 10.08 (4.8-10.8) K/uL RBC 3.56 L (4.2-5.4) M/uL Hgb 8.6 L (12.0-16.0) g/dL Hct 28.1 L (37-47) % MCV 78.9 L (80-100) fL MCH 24.2 L (25-34) pg MCHC 30.6 L (32-36) g/dL RDW Std Deviation 53.6 H (36.4-46.3) fL RDW Coeff of Cameron 19.1 H (11.5-14.5) % Plt Count 243 (130-400) K/uL MPV 9.3 (7.4-10.4) fL Immature Gran % (Auto) 0.5 % Neut % (Auto) 71.2 % Lymph % (Auto) 20.0 % Mcminn % (Auto) 6.4 % Eos % (Auto) 1.8 % Baso % (Auto) 0.1 % Neut # (Auto) 7.17 H (1.4-6.5) K/uL Lymph # (Auto) 2.02 (1.2-3.4) K/uL Mcminn # (Auto) 0.65 H (0.11-0.59) K/uL Eos # (Auto) 0.18 (0-0.5) K/uL Baso # (Auto) 0.01 (0-0.2) K/uL Immature Gran # (Auto) 0.05 H (0.00-0.02) K/uL PT 10.0 (9.0-12.0) Seconds INR 0.9 (0.9-1.1) APTT 25.0 (21.0-31.0) Seconds PTT Ratio 0.9 Sodium 141 (136-145) mmol/L Potassium 3.4 L (3.5-5.1) mmol/L Chloride 108 H (98-107) mmol/L Carbon Dioxide 24 (21-32) mmol/L Anion Gap 9 (3-11) BUN 7 (6-23) mg/dl Creatinine 0.92 (0.6-1.2) mg/dl Est Cr Clr Drug Dosing 106.0 ml/min Est GFR ( Amer) 89.6 ml/min Est GFR (Non-Af Amer) 77.3 ml/min BUN/Creatinine Ratio 7.6 L (10-20) Glucose 109 H (70-99(Fasting)) mg/dl Calcium 8.5 (8.5-10.1) mg/dl Magnesium 1.7 (1.7-2.4) mg/dl Total Bilirubin 0.5 (0.2-1.0) mg/dl AST 15 (13-39) U/L ALT 17 (7-52) U/L Alkaline Phosphatase 64 (34-104) U/L Troponin I High Sens 21.6 H (0-14) pg/ml B-Natriuretic Peptide (0-100) pg/ml Total Protein 6.6 (6.0-8.3) gm/dl Albumin 3.9 (3.4-5.0) gm/dl Globulin 2.7 (2.5-4.0) gm/dl Albumin/Globulin Ratio 1.4 (0.9-2) SARS-CoV-2, RNA, NAAT (NEGATIVE) 03/05/22 03/06/22 Range/Units 23:32 00:32 WBC (4.8-10.8) K/uL RBC (4.2-5.4) M/uL Hgb (12.0-16.0) g/dL Hct (37-47) % MCV (80-100) fL MCH (25-34) pg MCHC (32-36) g/dL RDW Std Deviation (36.4-46.3) fL RDW Coeff of Cameron (11.5-14.5) % Plt Count (130-400) K/uL MPV (7.4-10.4) fL Immature Gran % (Auto) % Neut % (Auto) % Lymph % (Auto) % Mcminn % (Auto) % Eos % (Auto) % Baso % (Auto) % Neut # (Auto) (1.4-6.5) K/uL Lymph # (Auto) (1.2-3.4) K/uL Mcminn # (Auto) (0.11-0.59) K/uL Eos # (Auto) (0-0.5) K/uL Baso # (Auto) (0-0.2) K/uL Immature Gran # (Auto) (0.00-0.02) K/uL PT (9.0-12.0) Seconds INR (0.9-1.1) APTT (21.0-31.0) Seconds PTT Ratio Sodium (136-145) mmol/L Potassium (3.5-5.1) mmol/L Chloride (98-107) mmol/L Carbon Dioxide (21-32) mmol/L Anion Gap (3-11) BUN (6-23) mg/dl Creatinine (0.6-1.2) mg/dl Est Cr Clr Drug Dosing ml/min Est GFR ( Amer) ml/min Est GFR (Non-Af Amer) ml/min BUN/Creatinine Ratio (10-20) Glucose (70-99(Fasting)) mg/dl Calcium (8.5-10.1) mg/dl Magnesium (1.7-2.4) mg/dl Total Bilirubin (0.2-1.0) mg/dl AST (13-39) U/L ALT (7-52) U/L Alkaline Phosphatase (34-104) U/L Troponin I High Sens (0-14) pg/ml B-Natriuretic Peptide 183 H (0-100) pg/ml Total Protein (6.0-8.3) gm/dl Albumin (3.4-5.0) gm/dl Globulin (2.5-4.0) gm/dl Albumin/Globulin Ratio (0.9-2) SARS-CoV-2, RNA, NAAT NEGATIVE (NEGATIVE) Imaging Data Attestation: I personally reviewed and interpreted this imaging study as follows: ECG Data Attestation: I personally reviewed and interpreted this ECG as follows: Additional Comments: EKG interpreted by me normal sinus rhythm rate of [address] segment elevation or depression normal axis normal intervals MDM Narrative Decision making differential diagnosis CHF, angina, unstable angina, acute [place], anemia. Plan is to check labs, cardiac evaluation Impression & Plan CHF (congestive heart failure), High blood pressure, Chest pain, Anemia Discharge Plan Visit Data Chief Complaint: Cardiac Assessment Stated Complaint: chest pain, edema in extremities, L arm numb ED Provider: Lanre Cottrell Discharge Problem: CHF (congestive heart failure), High blood pressure, Chest pain, Anemia Patient Disposition: Being Evaluated by Hospitalist Forms Stand Alone Forms: [facility] Prescriptions Prescriptions: No Action Nurtec ODT 75 mg tablet,disintegrating 75 mg PO UD MDD 2 days a week PRN (Reason: Headache) RF: 0 baclofen 20 mg tablet 5 mg PO BID PRN (Reason: Headache/Neck Pain) RF: 0 trazodone 50 mg tablet 100 mg PO HS PRN (Reason: Sleep) RF: 0 tizanidine 4 mg tablet 4 - 8 mg PO HS RF: 0 potassium chloride 10 mEq tablet extended release 10 meq PO HS RF: 0 folic acid 400 mcg tablet 400 mcg PO HS RF: 0 levothyroxine 50 mcg tablet 50 mcg PO QAM RF: 0 pantoprazole 40 mg tablet,delayed release (DR/EC) 40 mg PO BID RF: 0 promethazine 25 mg tablet 25 mg PO Q6H PRN (Reason: Nausea) RF: 0 memantine 10 mg tablet 10 mg PO BIDM RF: 0 duloxetine 30 mg capsule,delayed release(DR/EC) 120 mg PO DAILY RF: 0 zolmitriptan 5 mg Tablet 2.5 - 5 mg PO BID PRN (Reason: Migraine Headache) RF: 0 magnesium gluconate [Mag-G] 27 mg magnesium (500 mg) tablet 125 mg PO HS RF: 0 multivitamin with minerals Tablet 1 tab PO HS RF: 0 cetirizine 10 mg Tablet 10 mg PO QAM RF: 0 Emgality Pen 120 mg/mL pen injector 120 mg SUBCUT MONTHLY RF: 0 clonidine HCl 0.1 mg tablet 0.1 mg PO BID PRN (Reason: Hypertension) RF: 0 diphenoxylate-atropine 2.5-0.025 mg tablet 1 tab PO QID PRN (Reason: Diarrhea) RF: 0 hydroxyzine HCl 25 mg tablet 25 mg PO QAM RF: 0 desipramine 25 mg tablet 25 mg PO DAILY RF: 0 gabapentin 300 mg capsule See Rx Instructions .ROUTE .COMPLEX RF: 0 pindolol 5 mg tablet 5 mg PO BID RF: 0 ergocalciferol (vitamin D2) [Vitamin D2] 1,250 mcg (50,000 unit) Capsule 1,250 mcg PO WK RF: 0 lorazepam 0.5 mg tablet 0.5 mg PO UD PRN (Reason: procedures/panic) RF: 0 dicyclomine 20 mg Tablet 20 mg PO QID PRN (Reason: Abdominal Discomfort) RF: 0 tramadol 50 mg tablet 50 mg PO Q6 PRN (Reason: Pain) RF: 0 lidocaine [Lidoderm] 5 % adhesive patch,medicated 1 patch topical DAILY PRN (Reason: Pain) RF: 0 Referrals Referrals: Melania Zhou DO [Primary Care Provider] - Discharge Problem: CHF (congestive heart failure) Qualifiers: Heart failure type: unspecified Heart failure chronicity: acute Qualified Code(s): I50.9 - Heart failure, unspecified High blood pressure Qualifiers: Hypertension type: unspecified Qualified Code(s): I10 - Essential (primary) hypertension Chest pain Qualifiers: Chest pain type: precordial pain Qualified Code(s): R07.2 - Precordial pain Anemia Qualifiers: Anemia type: unspecified type Qualified Code(s): D64.9 - Anemia, unspecified
[2022-03-05 23:45] LABS: Basophils # (auto) 0.01 K/uL (0-0.2); Basophils % (auto) 0.1 %; Eosinophils # (auto) 0.18 K/uL (0-0.5); Eosinophils % (auto) 1.8 %; Hematocrit (blood only) 28.1 % (37-47); Hemoglobin 8.6 g/dL (12.0-16.0); Immature Granulocytes # (auto) 0.05 K/uL (0.00-0.02); Immature Granulocytes % (auto) 0.5 %; Lymphocytes # (auto) 2.02 K/uL (1.2-3.4); Mean Corpuscular Hemoglobin 24.2 pg (25-34); Mean Corpuscular Hgb Conc 30.6 g/dL (32-36); Mean Corpuscular Volume 78.9 fL (80-100); Mean Platelet Volume 9.3 fL (7.4-10.4); Monocytes # (auto) 0.65 K/uL (0.11-0.59); Monocytes % (auto) 6.4 %; Neutrophils # (auto) 7.17 K/uL (1.4-6.5); Neutrophils % (auto) 71.2 %; Platelet Count 243 K/uL (130-400); RDW Coefficient of Variation 19.1 % (11.5-14.5); RDW Standard Deviation 53.6 fL (36.4-46.3); Red Blood Count 3.56 M/uL (4.2-5.4); White Blood Count 10.08 K/uL (4.8-10.8)
[2022-03-06 00:02] LABS: INR 0.9 (0.9-1.1); Partial Thromboplastin Ratio 0.9
[2022-03-06 00:08] LABS: Albumin Globulin Ratio 1.4 (0.9-2); Albumin Level 3.9 gm/dl (3.4-5.0); BUN Creatinine Ratio 7.6 (10-20); Bilirubin,Total 0.5 mg/dl (0.2-1.0); Calcium 8.5 mg/dl (8.5-10.1); Est GFR (African American) 89.6 ml/min; Est GFR (Non-African American) 77.3 ml/min; Globulin 2.7 gm/dl (2.5-4.0); Potassium 3.4 mmol/L (3.5-5.1); Total Protein 6.6 gm/dl (6.0-8.3); Troponin I High Sensitivity 21.6 pg/ml (0-14)
[2022-03-06] MEDS ORDERED: FUROSEMIDE 40 MG/4 ML VIAL IV ONE ×2 (00:12→08:00)
[2022-03-06] MEDS ORDERED: ASPIRIN CHEW 324 MG PO STA (00:12)
[2022-03-06] MEDS ORDERED: POTASSIUM CHLORIDE CRTAB 20 MEQ TABCR PO STA ×2 (00:19→07:42)
[2022-03-06 00:51] LABS: Magnesium 1.7 mg/dl (1.7-2.4)
[2022-03-06] MEDS ORDERED: NITROGLYCERIN SL 0.4 MG/TAB TAB SL STA (01:35)
--- NOTE | 2022-03-06 01:44 | History & Physical Report ---
Date of Service March 06, 2022 Assessment & Plan (1) NSTEMI (non-ST elevated myocardial infarction): Plan: Possible right-sided HF given normal chest x-ray with abnormal BNP Recent prednisone course for poison gabi dermatitis contributory to fluid retention Nocturnal hypoxemia as per records, no SKIP on sleep study from 2017 Recent elective hemorrhoidectomy Initial CT abdomen pelvis read unremarkable Acute on chronic anemia Secondary to intermittent hemorrhoidal bleed as per patient account mood disorder, at baseline PCOS, insulin resistance as per records, hemoglobin A1c of 6.01 November 2021 hypothyroidism, TSH slightly elevated Migraine on Namenda gastroparesis at baseline PCU Aspirin, beta-jasmyne, low-dose IV heparin for NSTEMI Nitro as needed Diuretic Rx Strict I/Os, daily weights, CHF education TTE, Cardiology consult RE NSTEMI, CHF N.p.o. until patient seen by cardiology in a.m. in anticipation of procedure Anemia work-up, transfuse PRBC if hemoglobin less than 8 and or for symptomatic anemia DVT prophylaxis. Low-dose IV heparin Full code Patient requesting updates from providers. Mr. Franco Preston, contact #[phone]. Text document was generated using [employer] voice recognition software. It may contain grammatical or spelling errors. Kindly contact undersigned for clarification of any documentation item in question. History of Present Illness Chief Complaint: Chest pain, bilateral leg swelling, fluid retention Primary Care Provider: Melania Zhou, History is obtained from the patient, family, and records. Medical history significant for chronic migraine on Namenda, mood disorder, PCOS, insulin resistance as per records, hypothyroidism, gastroparesis, history syringomyelia as per records, hemorrhoids status post surgery, chronic anemia (baseline hemoglobin of 10), nocturnal hypoxemia as per records . Last confinement October 2020 for post hemorrhoidectomy fever. Weeks history of bilateral leg swelling, fluid retention, weight gain. Shortness of breath mostly exertion. No unusual cough symptoms. Recent outpatient oral steroid course for poison gabi dermatitis. Patient had central chest pain going to the left side last night. No abdominal pain. Episodic bleeding from hemorrhoids as per patient. Aspirin and Lasix given at the ER. Chest pain relieved by nitroglycerin given at the ER. MEDICAL HISTORY: As above. SURGERIES: Cholecystectomy, sinus surgery, Eye surgery, hemorrhoidectomy FAMILY HISTORY: Diabetes, heart disease. 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 Allergies Allergy/AdvReac Type Severity Reaction Status Date / Time morphine Allergy Severe Hives,itchiness,nausea Verified 03/06/22 00:06 and vomiting topiramate Allergy Severe neurological Verified 03/06/22 00:06 symptoms cephalexin Allergy Mild rash Verified 03/06/22 00:06 Home Medications Medication Instructions Recorded Confirmed Type baclofen 20 mg tablet 5 mg PO BID PRN 06/06/18 03/06/22 History duloxetine 30 mg capsule,delayed 120 mg PO DAILY 06/06/18 03/06/22 History release folic acid 400 mcg tablet 400 mcg PO HS 06/06/18 03/06/22 History levothyroxine 50 mcg tablet 50 mcg PO QAM 06/06/18 03/06/22 History memantine 10 mg tablet 10 mg PO BIDM 06/06/18 03/06/22 History pantoprazole 40 mg tablet,delayed 40 mg PO BID 06/06/18 03/06/22 History release potassium chloride 10 mEq 10 meq PO HS 06/06/18 03/06/22 History tablet,extended release promethazine 25 mg tablet 25 mg PO Q6H PRN 06/06/18 03/06/22 History tizanidine 4 mg tablet 4 - 8 mg PO HS 06/06/18 03/06/22 History trazodone 50 mg tablet 100 mg PO HS PRN 06/06/18 03/06/22 History zolmitriptan 5 mg tablet 2.5 - 5 mg PO BID PRN 06/06/18 03/06/22 History cetirizine 10 mg tablet 10 mg PO QAM 02/17/19 03/06/22 History magnesium gluconate 27 mg 125 mg PO HS 05/19/19 03/06/22 History magnesium (500 mg) tablet (Mag-G) galcanezumab-gnlm 120 mg/mL 120 mg SUBCUT MONTHLY 08/03/19 03/06/22 History subcutaneous pen injector (Emgality Pen) clonidine HCl 0.1 mg tablet 0.1 mg PO BID PRN 02/18/20 03/06/22 History diphenoxylate-atropine 2.5 1 tab PO QID PRN 02/18/20 03/06/22 History mg-0.025 mg tablet hydroxyzine HCl 25 mg tablet 25 mg PO QAM 02/18/20 03/06/22 History multivitamin with minerals 1 tab PO HS 09/10/20 03/06/22 History desipramine 25 mg tablet 25 mg PO DAILY 11/13/20 03/06/22 History gabapentin 300 mg capsule See Rx Instructions .ROUTE .COMPLEX 11/13/20 03/06/22 History pindolol 5 mg tablet 5 mg PO BID 11/13/20 03/06/22 History dicyclomine 20 mg tablet 20 mg PO QID PRN 11/14/20 03/06/22 History ergocalciferol (vitamin D2) 1,250 1,250 mcg PO WK 11/14/20 03/06/22 History mcg (50,000 unit) capsule (Vitamin D2) lorazepam 0.5 mg tablet 0.5 mg PO UD PRN 11/14/20 03/06/22 History rimegepant 75 mg disintegrating 75 mg PO UD PRN MDD 2 days a week 08/01/21 03/06/22 History tablet (Nurtec ODT) lidocaine 5 % topical patch 1 patch TOPICAL DAILY PRN 10/29/21 03/06/22 History (Lidoderm) tramadol 50 mg tablet 50 mg PO Q6 PRN 10/29/21 03/06/22 History Past Med/Surg History Medical History Barretts esophagus Chronic neck pain Deafness in right ear Degenerative disc disease Depression Gastroesophageal reflux disease Gastroparesis High blood pressure History of bronchitis inhaler prn Hypothyroidism Hypothyroidism Insulin resistance Migraine Obesity Polycystic ovaries Surgical History H/O sinus surgery x2--recent on 08/2019 History of colonoscopy History of esophagogastroduodenoscopy (EGD) History of eye surgery x2 on right History of tooth extraction History of wisdom tooth extraction S/P cholecystectomy Family History Mother Family history of reaction to anesthesia after 2 hours afer breast cancer sx "her lungs started filling up with fluid" per pt was told it was d/t anesthesia Breast cancer Environmental allergies Heart disease Hypertension Grandfather (Paternal) Family history of diabetes mellitus Father Cancer Grandfather Cancer Other Diabetes Lung disease No family history of bleeding disorder Seizure Social History Smoking Status: Never smoker Second Hand Exposure: No; Hx Alcohol Use: No Hx Substance Use: No Preferred Language: Bruneian 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 Ability: Effective Senior Consultant Required: No Beliefs That Will Affect Care: None marital status: Current Living Situation: Spouse current occupational status: disabled Other Information That Helps Us Care for You: No Feels Safe at Home: Yes Safety Concerns: Feels Safe At This Time Assistive Devices: Glasses and Hearing Aid - Right Review of Systems Review of Systems: As per HPI, all other systems reviewed and negative Physical Exam Physical Exam: GENERAL: Slight uncomfortable, slightly anxious, morbidly obese, no respiratory distress SKIN: Pallor, warm HEENT: Pale palpebral conjunctivae, no ptosis, moist buccal mucosa NECK : Supple, short neck, no tenderness CHEST : Erythematous patches and streaks (sunburn) in patient's posterior thorax, decreased breath sounds, no tenderness HEART : RRR, no obvious murmurs ABDOMEN: Some distention, nontender EXTREMITIES : Bilateral LE swelling with erythematous spots, no LE tenderness, no other conspicuous deformities noted NEUROLOGIC : Coherent, no facial asymmetry, no other gross focality Results & Data Results & Data ([facility]) Vital Signs (Past 12 Hours) Vital Signs Temp Pulse Pulse Resp BP BP Pulse Ox 03/06/22 01:19 92 H 20 162/78 H 98 03/05/22 23:58 86 20 100 03/05/22 23:56 90 20 99 03/05/22 23:26 37 C 97 H 26 H 135/110 H 97 Laboratory Results Laboratory Results WBC 10.08 K/uL (4.8-10.8) 03/05/22 23:32 RBC 3.56 M/uL (4.2-5.4) L 03/05/22 23:32 Hgb 8.6 g/dL (12.0-16.0) L 03/05/22 23:32 Hct 28.1 % (37-47) L 03/05/22 23:32 MCV 78.9 fL (80-100) L 03/05/22 23:32 MCH 24.2 pg (25-34) L 03/05/22 23:32 MCHC 30.6 g/dL (32-36) L 03/05/22 23:32 RDW Std Deviation 53.6 fL (36.4-46.3) H 03/05/22 23: RDW Coeff of [place] 19.1 % (11.5-14.5) H 03/05/22 23:32 Plt Count 243 K/uL (130-400) 03/05/22 23:32 MPV 9.3 fL (7.4-10.4) 03/05/22 23:32 Immature Gran % (Auto) 0.5 % 03/05/22 23:32 Neut % (Auto) 71.2 % 03/05/22 23:32 Lymph % (Auto) 20.0 % 03/05/22 23:32 [place] % (Auto) 6.4 % 03/05/22:32 Eos % (Auto) 1.8 % 03/05/22: Baso % (Auto) 0.1 % 03/05/22: Neut # (Auto) 7.17 K/uL (1.4-6.5) H 03/05/22 23:32 Lymph # (Auto) 2.02 K/uL (1.2-3.4) 03/05/22 23:32 [place] # (Auto) 0.65 K/uL (0.11-0.59) H 03/05/22 23:32 Eos # (Auto) 0.18 K/uL (0-0.5) 03/05/22 23:32 Baso # (Auto) 0.01 K/uL (0-0.2) 03/05/22 23:32 Immature Gran # (Auto) 0.05 K/uL (0.00-0.02) H 03/05/22 23:32 PT 10.0 Seconds (9.0-12.0) 03/05/22 23:32 INR 0.9 (0.9-1.1) 03/05/22:32 APTT 25.0 Seconds (21.0-31.0) 03/05/22 23:32 PTT Ratio 0.9 03/05/22 23:32 Sodium 141 mmol/L (136-145) 03/05/22 23:32 Potassium 3.4 mmol/L (3.5-5.1) L 03/05/22 23:32 Chloride 108 mmol/L (98-107) H 03/05/22 23:32 Carbon Dioxide 24 mmol/L (21-32) 03/05/22 23:32 Anion Gap 9 (3-11) 03/05/22 23:32 BUN 7 mg/dl (6-23) 03/05/22 23:32 Creatinine 0.92 mg/dl (0.6-1.2) 03/05/22 23:32 Est Cr Clr Drug Dosing 106.0 ml/min 03/05/22 23:32 Est GFR ( Amer) 89.6 ml/min 03/05/22 23:32 Est GFR (Non-Af Amer) 77.3 ml/min 03/05/22 23:32 BUN/Creatinine Ratio 7.6 (10-20) L 03/05/22 23:32 Glucose 109 mg/dl (70-99(Fasting)) H 03/05/22 23:32 Calcium 8.5 mg/dl (8.5-10.1) 03/05/22 23:32 Magnesium 1.7 mg/dl (1.7-2.4) 03/05/22 23:32 Total Bilirubin 0.5 mg/dl (0.2-1.0) 03/05/22 23:32 AST 15 U/L (13-39) 03/05/22 23:32 ALT 17 U/L (7-52) 03/05/22 23:32 Alkaline Phosphatase 64 U/L (34-104) 03/05/22 23:32 Troponin I High Sens 21.6 pg/ml (0-14) H 03/05/22 23:32 B-Natriuretic Peptide 183 pg/ml (0-100) H 03/05/22 23:32 Total Protein 6.6 gm/dl (6.0-8.3) 03/05/22 23:32 Albumin 3.9 gm/dl (3.4-5.0) 03/05/22 23:32 Globulin 2.7 gm/dl (2.5-4.0) 03/05/22 23:32 Albumin/Globulin Ratio 1.4 (0.9-2) 03/05/22 23:32 SARS-CoV-2, RNA, NAAT NEGATIVE (NEGATIVE) 07/05/22 00:32 Diagnostic Findings Chest x-ray as per my interpretation no infiltrate/no congestion EKG as per my interpretation : Rate 95, NSR, normal axis, incomplete RBBB, T wav e abnormalities septal leads, low voltage Code Status & VTE Plan VTE Prophylaxis Plan VTE Prophylaxis will be ordered: Yes
[2022-03-06] MEDS ORDERED: ACETAMINOPHEN 325 MG TAB PO PRN (02:43)
[2022-03-06] MEDS ORDERED: LIDOCAINE 5% 1 PATCH TD PRN (02:43)
[2022-03-06] MEDS ORDERED: traZODone HCL 100 MG TAB PO PRN (02:43)
[2022-03-06] MEDS ORDERED: BACLOFEN 10 MG TAB PO PRN (02:43)
[2022-03-06] MEDS ORDERED: LORazepam 0.5 MG in SYRINGE 0.25 ML IV PRN (02:43)
[2022-03-06] MEDS ORDERED: PROMETHAZINE HCL 12.5 MG in SODIUM CHLORIDE 0.9% 50 ML IV PRN (02:43)
[2022-03-06] MEDS ORDERED: Heparin IV Adult Wt-Based Low-Dose *NO* Bolus Protocol IV ONE (03:41)
[2022-03-06 03:42] LABS: Thyroid Stimulating Hormone 7.645 uIu/ml (0.300-4.500)
[2022-03-06] MEDS ORDERED: NITROGLYCERIN SL 0.4 MG/TAB TAB SL PRN (03:42)
[2022-03-06] MEDS ORDERED: HEPARIN SODIUM/DEXTROSE 25,000 UNITS/500 ML BAG IV SCH (03:45)
[2022-03-06 04:29] LABS: T4 Free Thyroxine 0.91 ng/dl (0.61-1.60)
[2022-03-06] MEDS ORDERED: LORazepam 0.5 MG in SYRINGE 0.25 ML IV STA (05:55)
[2022-03-06] MEDS: LEVOTHYROXINE SODIUM 50 MCG TABLET PO SCH (06:18)
[2022-03-06 06:36] LABS: Basophils # (auto) 0.01 K/uL (0-0.2); Basophils % (auto) 0.1 %; Eosinophils % (auto) 2.3 %; Hematocrit (blood only) 28.7 % (37-47); Hemoglobin 8.7 g/dL (12.0-16.0); Immature Granulocytes # (auto) 0.03 K/uL (0.00-0.02); Immature Granulocytes % (auto) 0.3 %; Lymphocytes % (auto) 21.9 %; Mean Corpuscular Hemoglobin 24.2 pg (25-34); Mean Corpuscular Hgb Conc 30.3 g/dL (32-36); Mean Corpuscular Volume 79.7 fL (80-100); Mean Platelet Volume 9.5 fL (7.4-10.4); Monocytes # (auto) 0.52 K/uL (0.11-0.59); Neutrophils # (auto) 6.01 K/uL (1.4-6.5); Neutrophils % (auto) 69.4 %; Platelet Count 270 K/uL (130-400); RDW Coefficient of Variation 19.2 % (11.5-14.5); RDW Standard Deviation 54.9 fL (36.4-46.3); Reticulocyte % 2.6 % (0.5-2.0); Reticulocytes # 0.09 10^6/uL (0.02-0.10); White Blood Count 8.67 K/uL (4.8-10.8)
[2022-03-06] MEDS ORDERED: HYDROmorphone INJ 0.5 MG/0.5 ML SYR IV PRN (06:39)
[2022-03-06] MEDS: traMADol HCL 50 MG TABLET PO PRN (06:44)
[2022-03-06 07:03] LABS: Troponin I High Sensitivity 20.3 pg/ml (0-14)
[2022-03-06 07:17] LABS: Ferritin 11.9 ng/ml (8-388)
[2022-03-06 07:20] LABS: BUN Creatinine Ratio 8.6 (10-20); Calcium 8.7 mg/dl (8.5-10.1); Creatinine Clr Calc Pharmacy 118.6 ml/min; Est GFR (African American) 104.6 ml/min; Est GFR (Non-African American) 90.2 ml/min; Potassium 3.3 mmol/L (3.5-5.1)
[2022-03-06 07:22] LABS: Folate (Folic Acid) 16.61 ng/ml (>5.38)
--- NOTE | 2022-03-06 07:41 | XRay Report ---
SINGLE VIEW CHEST CLINICAL HISTORY: Atypical chest pain FINDINGS: An AP, portable, upright chest radiograph is compared to study dated 11/13/2020 and correlat ed with chest CT dated 06/18/2019. The cardiomediastinal silhouette is unremarkable. The lungs and pl eural spaces are clear. No pneumothorax is seen. The bony thorax is grossly intact. IMPRESSION: No acute cardiopulmonary abnormality. ACT 112: Negative or not required by law. Electronically signed by: Minesh Barnett M.D. 03/06/2022 7:40 AM
--- NOTE | 2022-03-06 07:54 | Cardiology Consultation ---
Date of Consultation March 06, 2022 Assessment & Plan (1) Chest pain: (2) REID (dyspnea on exertion): (3) Bilateral lower extremity edema: (4) Elevated troponin: (5) Anemia: Chest pain and shortness of breath in the setting of hypervolemia. Mildly elevated troponin of 21.6>> trending down, now 20. EKG without evidence of ACS. Lower extremity edema likely multifactorial due to fluid retention, recent steroid use, gabapentin use, dietary indiscretions, and anemia. Anemia could also be contributing to chest pain and shortness of breath. HS Troponin likely elevated in the setting of increased cardiac demand. -Given worsening anemia, will place ASA and heparin on hold. Recommend inve stigating causes of her worsening anemia, will defer to primary team. -? Low Hbg dilutional, patient does appear mildly hypervolemic with lower extremity edema still present, agree with addition dose of Lasix this am. -Continue to monitor electrolytes and replace as needed, potassium goal of 4.0 and mag goal of 2.0 -Echocardiogram report pending, further recommendations pending results. -Would be hesitant to proceed with stress testing/cardiac cath at this time due to worsening anemia. Can consider as an outpatient. -Continue to monitor on telemetry Case discussed with Dr. Torre- will follow. Supervising Physician Co-Signing Physician Notes Supervising Physician Attestation: I have personally performed a history and physical examination on the patient. I agree with the nurse practitioners findings and plan as documented with the following additions. Subjective: Patient describes progressive 15 pound weight gain in the setting of prednisone use, with lower extremity edema x1 week, shortness of breath most notably when lying supine. Exam: 1-2+ lower extremity edema Regular rhythm, no murmurs Data: High-sensitivity troponin 21.6, 20.3 EKG 03/06/2020 revealed normal sinus rhythm 82 bpm, normal EKG Assessment and Plan: Volume overload in the setting of prednisone use, chronic gabapentin use I do not think the patient's symptoms or work-up thus far is indicative of an acute coronary syndrome. Echocardiogram reassuring with normal biventricular systolic function, normal LVEF, grade 1 diastolic dysfunction, no significant valvular heart disease. Aspirin and unfractioned heparin have been discontinued. Continue furosemide. Anemia work-up as per the hospital service. Taran Torre, DO History of Present Illness Reason for Consultation: Elevated troponin [facility]ing Physician: [facility] Attending Physician: Balbir Terry MD History of Present Illness 41-year-old female. Unknown to the outpatient [facility] cardiology clinic. Past medical history as stated below. Over the last week patient noted worsening BL lower extremity edema. She normally weights about 235 lbs> yesterday home weight was about 250 lbs. 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 Pain was constant, did slightly improve with rest, but did not completely resolve. She was given x1 nitro in the ED with mild relief in s ymptoms. She experienced another episode of chest pain over night- nitro did not relieve symptoms. Patient was given Ativan and tramadol and pain resolved. Patient is currently chest pain free without shortness of breath. Upon entrance into the room she was asleep with her HOB flat- no evidence of orthopnea. Lower extremity edema persists primarily in the feet, but is improved. Denies palpitations, dizziness, syncope, nausea, or diaphoresis. Does note some hemorrhoidal bleeding that occurs when she wipes after using the restroom, but feels this is improved compared to last year. Does not fill the toilet bowl with blood, denies dark or tarry stools. Does have abdominal pain at times- attributes this to gastroparesis. Of note, approximally 4 years ago she was diagnosed with "lower extremity swelling" and was on Lasix for a short period of time. She also takes gabapentin 3 times per day. Lab work remarkable for hemoglobin of 8.7, patient has medic anemia with a baseline hemoglobin of 10. Potassium low at 3.3 (supplemented by hospitalist team). High-sensitivity troponin elevated at 21.6 >> 20.3. BNP mildly elevated at 183. TSH elevated at 7.645 with a normal free T4 of 0.91. EKG 03/06/2022: Normal sinus rhythm, 82 bpm-unchanged when compared to prior EKGs. No acute ST changes. Abdominal CT: No acute abnormality Chest x-ray: No acute cardiopulmonary abnormality Echo: PENDING Tele: SR 80-90s I&O: Weight: Past medical history: Chronic anemia, baseline hemoglobin of 10 History of nocturnal hypoxemia Hemorrhoids, status post hemorrhoidectomy 10/2020 Polycystic ovary syndrome Hypothyroidism Insulin resistance Gastroparesis Fatty liver disease Syringomyelia Migraine Mood disorder/depression Allergies Allergy/AdvReac Type Severity Reaction Status Date / Time morphine Allergy Severe Hives,itchiness,nausea Verified 03/06/22 00:06 and vomiting topiramate Allergy Severe neurological Verified 03/06/22 00:06 symptoms cephalexin Allergy Mild rash Verified 03/06/22 00:06 Home Medications Medication Instructions Recorded Confirmed Type baclofen 20 mg tablet 5 mg PO BID PRN 06/06/18 03/06/22 History duloxetine 30 mg capsule,delayed 120 mg PO DAILY 06/06/18 03/06/22 History release folic acid 400 mcg tablet 400 mcg PO HS 06/06/18 03/06/22 History levothyroxine 50 mcg tablet 50 mcg PO QAM 06/06/18 03/06/22 History memantine 10 mg tablet 10 mg PO BIDM 06/06/18 03/06/22 History pantoprazole 40 mg tablet,delayed 40 mg PO BID 06/06/18 03/06/22 History release potassium chloride 10 mEq 10 meq PO HS 06/06/18 03/06/22 History tablet,extended release promethazine 25 mg tablet 25 mg PO Q6H PRN 06/06/18 03/06/22 History tizanidine 4 mg tablet 4 - 8 mg PO HS 06/06/18 03/06/22 History trazodone 50 mg tablet 100 mg PO HS PRN 06/06/18 03/06/22 History zolmitriptan 5 mg tablet 2.5 - 5 mg PO BID PRN 06/06/18 03/06/22 History cetirizine 10 mg tablet 10 mg PO QAM 02/17/19 03/06/22 History magnesium gluconate 27 mg 125 mg PO HS 05/19/19 03/06/22 History magnesium (500 mg) tablet (Mag-G) galcanezumab-gnlm 120 mg/mL 120 mg SUBCUT MONTHLY 08/03/19 03/06/22 History subcutaneous pen injector (Emgality Pen) clonidine HCl 0.1 mg tablet 0.1 mg PO BID PRN 02/18/20 03/06/22 History diphenoxylate-atropine 2.5 1 tab PO QID PRN 02/18/20 03/06/22 History mg-0.025 mg tablet hydroxyzine HCl 25 mg tablet 25 mg PO QAM 02/18/20 03/06/22 History multivitamin with minerals 1 tab PO HS 09/10/20 03/06/22 History desipramine 25 mg tablet 25 mg PO DAILY 11/13/20 03/06/22 History gabapentin 300 mg capsule See Rx Instructions .ROUTE .COMPLEX 11/13/20 03/06/22 History pindolol 5 mg tablet 5 mg PO BID 11/13/20 03/06/22 History dicyclomine 20 mg tablet 20 mg PO QID PRN 11/14/20 03/06/22 History ergocalciferol (vitamin D2) 1,250 1,250 mcg PO WK 11/14/20 03/06/22 History mcg (50,000 unit) capsule (Vitamin D2) lorazepam 0.5 mg tablet 0.5 mg PO UD PRN 11/14/20 03/06/22 History rimegepant 75 mg disintegrating 75 mg PO UD PRN MDD 2 days a week 08/01/21 03/06/22 History tablet (Nurtec ODT) lidocaine 5 % topical patch 1 patch TOPICAL DAILY PRN 10/29/21 03/06/22 History (Lidoderm) tramadol 50 mg tablet 50 mg PO Q6 PRN 10/29/21 03/06/22 History Patient History Medical History Barretts esophagus Chronic neck pain Deafness in right ear Degenerative disc disease Depression Gastroesophageal reflux disease Gastroparesis High blood pressure History of bronchitis inhaler prn Hypothyroidism Hypothyroidism Insulin resistance Migraine Obesity Polycystic ovaries Surgical History H/O sinus surgery x2--recent on 08/2019 History of colonoscopy History of esophagogastroduodenoscopy (EGD) History of eye surgery x2 on right History of tooth extraction History of wisdom tooth extraction S/P cholecystectomy Family History Mother Family history of reaction to anesthesia after 2 hours afer breast cancer sx "her lungs started filling up with fluid" per pt was told it was d/t anesthesia Breast cancer Environmental allergies Heart disease Hypertension Grandfather (Paternal) Family history of diabetes mellitus Father Cancer Grandfather Cancer Other Diabetes Lung disease No family history of bleeding disorder Seizure Social History Smoking Status: Never smoker Second Hand Exposure: No; Hx Alcohol Use: No Hx Substance Use: No Preferred Language: Swazi 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 Ability: Effective Geodesy Teacher Required: No Beliefs That Will Affect Care: None marital status: Current Living Situation: Spouse current occupational status: disabled Other Information That Helps Us Care for You: No Feels Safe at Home: Yes Safety Concerns: Feels Safe At This Time Assistive Devices: Glasses and Hearing Aid - Right Physical Exam Constitutional: WD/WN, vitals as above no acute distress Eyes: PERRL, conjunctivae normal, anicteric sclerae ENMT: external ear and nose normal, oropharynx normal Neck: normal visual inspection and trachea midline Respiratory: normal respiratory effort, lungs clear to auscultation no cough Auscultation: + rales (fine crackles in BL bases); no rhonchi and no wheezes Cardiovascular: RRR, no murmur, no edema Heart Sounds: normal S1 and normal S2 Vessels: no JVD and no carotid bruit Extremities: normal capillary refill, + pedal edema (+1 BL pedal edema) and + edema (+1 BLLE pitting edema to shins) Gastrointestinal (Abdomen): Inspection/Auscultation: abdomen normal to inspection and normal bowel sounds; abdomen not distended and no abdominal edema Percussion/Palpation: abdomen soft; abdomen nontender Rectal Exam: + hemorrhoids (per patient ) Musculoskeletal: no cyanosis or clubbing, extremities motor strength 5/5 Skin: no rashes, warm and dry Neurologic: PERRL, EOMI, accommodation nl, no face palsy, no dysarthria Psychiatric: A+Ox3, euthymic affect Results & Data ([facility]) Vital Signs (Past 12 Hours) Vital Signs Temp Pulse Pulse Resp BP BP Pulse Ox 03/06/22 06:04 74 18 129/83 94 03/06/22 03:32 36.9 C 86 18 149/96 H 93 03/06/22 02:44 36.9 C 89 18 173/84 H 99 03/06/22 02:21 89 20 139/90 97 03/06/22 01:19 92 H 20 162/78 H 98 03/05/22 23:58 86 20 100 03/05/22 23:56 90 20 99 03/05/22 23:26 37 C 97 H 26 H 135/110 H 97 Laboratory Results Cardiac Enzymes 03/05/22 03/05/22 03/06/22 Range/Units 23:32 23:32 05:31 AST 15 (13-39) U/L Troponin I High Sens 21.6 H 20.3 H (0-14) pg/ml B-Natriuretic Peptide 183 H (0-100) pg/ml Coagulation 03/05/22 03/05/22 Range/Units 23:32 23:32 PT 10.0 (9.0-12.0) Seconds APTT 25.0 (21.0-31.0) Seconds B-Natriuretic Peptide 183 H (0-100) pg/ml CBC 03/05/22 03/06/22 Range/Units 23:32 05:31 WBC 10.08 8.67 (4.8-10.8) K/uL RBC 3.56 L 3.60 L (4.2-5.4) M/uL Hgb 8.6 L 8.7 L (12.0-16.0) g/dL Hct 28.1 L 28.7 L (37-47) % Plt Count 243 270 (130-400) K/uL Neut # (Auto) 7.17 H 6.01 (1.4-6.5) K/uL Lymph # (Auto) 2.02 1.90 (1.2-3.4) K/uL [place] # (Auto) 0.65 H 0.52 (0.11-0.59) K/uL Eos # (Auto) 0.18 0.20 (0-0.5) K/uL Baso # (Auto) 0.01 0.01 (0-0.2) K/uL Comprehensive Metabolic Panel 03/05/22 03/06/22 Range/Units 23:32 05:31 Sodium 141 141 (136-145) mmol/L Potassium 3.4 L 3.3 L (3.5-5.1) mmol/L Chloride 108 H 105 (98-107) mmol/L Carbon Dioxide 24 26 (21-32) mmol/L BUN 7 7 (6-23) mg/dl Creatinine 0.92 0.81 (0.6-1.2) mg/dl Glucose 109 H 111 H (70-99(Fasting)) mg/dl Calcium 8.5 8.7 (8.5-10.1) mg/dl AST 15 (13-39) U/L ALT 17 (7-52) U/L Alkaline Phosphatase 64 (34-104) U/L Total Protein 6.6 (6.0-8.3) gm/dl Albumin 3.9 (3.4-5.0) gm/dl Intake and Output 03/05/22 03/06/22 03/06/22 22:59 06:59 14:59 Other: # Unmeasured Voids 2 Weight 116.5 kg Weight Measurement Method Built in [facility] Diagnostic Findings Echo 03/2022-inpatient Pending* Echo 2017 LVEF 60 to 65% with mild concentric LVH and no wall motion abnormalities RV normal in size and function No significant valvular heart disease (1) Anemia Anemia type: unspecified type Qualified Code(s): D64.9 - Anemia, unspecified
[2022-03-06] MEDS: DULoxetine HCL 60 MG CAP PO SCH (08:37)
[2022-03-06] MEDS: DESIPRAMINE HCL 25 MG TAB PO SCH (08:37)
[2022-03-06] MEDS: hydrOXYzine HCl 25 MG TAB PO SCH (08:37)
[2022-03-06] MEDS: CETIRIZINE HCL 10 MG TABLET PO SCH (08:37)
[2022-03-06] MEDS: MEMANTINE HCL 10 MG TAB PO SCH ×2 (08:37→17:02)
[2022-03-06] MEDS: PROPRANOLOL HCL 20 MG TAB PO SCH ×2 (08:38→20:19)
[2022-03-06] MEDS: PANTOprazole 40 MG TAB PO SCH ×2 (08:38→20:19)
[2022-03-06 10:13] LABS: Chol HDL Ratio 4.2 (0-5)
[2022-03-06 10:40] LABS: Partial Thromboplastin Ratio 0.9; Partial Thromboplastin Time 25.4 Seconds (21.0-31.0)
[2022-03-06] MEDS ORDERED: IRON SUCROSE 400 MG in SODIUM CHLORIDE 0.9% 250 ML IV ONE (10:49)
[2022-03-06] MEDS: GABAPENTIN 300 MG CAP PO SCH (12:48)
--- NOTE | 2022-03-06 13:04 | Hospitalist Progress Note ---
Date of Service March 06, 2022 Assessment & Plan (1) Acute diastolic CHF (congestive heart failure): (2) Chest pain: Plan: 41 year old female who presented to the ED 03/05 with progressive REID, leg swelling, abdominal bloating, orthopnea and weight gain of 15 lb in 1 week. She was recently treated with a course of prednisone for poison gabi but had completed the course few weeks back. Acute diastolic CHF - Echo with EF 60-65%, no WMG, grade 1 diastolic dysfunction, no significant valvular pathology - Weight gain of 15 lb in 1 week along with leg/abd swelling, orthopnea and REID - Diuresing well with iv lasix, labs stable - Continue iv lasix 40 mg bid with strict I and Os, daily weight, telemetry - Cardiology following Chest pain with trop elevation- Trop minimally elevated and flat trend so far, minimal chest pain now- likely from above rather than ACS. Agree with cardio regarding no heparin drip. Echo reviewed. Further management per cardio. Iron deficiency anemia- Iron studies show iron deficiency, B12 and folate normal. Hb relatively stable, no overt or active bleeding noted. Will start on iv venofer D1/3. check FOBT- if positive- will need gi eval for endoscopic evaluation Hypokalemia- repleted, recheck in am Hypothyroid- on synthroid. TSH mildly elevated, T4 normal. Recommend repeat TFT in 4-6 weeks as OP. DVT ppx- heparin drip on hold. Dispo- Pending optimization of volume status- on iv lasix and monitoring labs. Admission and Anticipated Discharge Date Admission Date: March 06, 2022 Subjective Feels better from admission. Has only minimal residual chest pain currently. Orthopnea and REID improved. Diuresing well and swelling coming down. No fever, chills, nausea, vomiting. States she gained 15 lbs over the past week with leg swelling and abdominal bloating. Physical Exam Physical Exam: General: Lying comfortably in bed, not in distress, on room air HEENT: EOMI, ADELINA, MMM Chest: Clear breath sounds bilaterally, no wheezes or crackles CVS: Regular rate and rhythm, normal heart sounds, no murmur Abdomen: Soft, non tender, not distended, normal bowel sounds Neuro: Awake, alert, oriented, conversing well, non focal Extremities: 1+ LE edema present Results & Data Results & Data ([facility]) Vital Signs (Past 12 Hours) Vital Signs Temp Pulse Pulse Resp BP BP Pulse Ox 03/06/22 11:37 37 C 66 18 157/93 H 92 03/06/22 07:41 36.9 C 85 18 148/82 H 95 03/06/22 06:04 74 18 129/83 94 03/06/22 03:32 36.9 C 86 18 149/96 H 93 03/06/22 02:44 36.9 C 89 18 173/84 H 99 03/06/22 02:21 89 20 139/90 97 03/06/22 01:19 92 H 20 162/78 H 98 Laboratory Results Short CBC 03/05/22 03/06/22 Range/Units 23:32 05:31 WBC 10.08 8.67 (4.8-10.8) K/uL Hgb 8.6 L 8.7 L (12.0-16.0) g/dL Hct 28.1 L 28.7 L (37-47) % Plt Count 243 270 (130-400) K/uL BMP 03/05/22 03/06/22 23:32 05:31 Sodium 141 141 Potassium 3.4 L 3.3 L Chloride 108 H 105 Carbon Dioxide 24 26 BUN 7 7 Creatinine 0.92 0.81 Glucose 109 H 111 H Calcium 8.5 8.7 Liver Function 03/05/22 Range/Units 23:32 Total Bilirubin 0.5 (0.2-1.0) mg/dl AST 15 (13-39) U/L ALT 17 (7-52) U/L Alkaline Phosphatase 64 (34-104) U/L Albumin 3.9 (3.4-5.0) gm/dl Medications Administered Current Inpatient Medications Acetaminophen (Acetaminophen 325 Mg Tab) 650 mg PO Q4H PRN PRN Reason: Pain or Fever Stop: 04/05/22 02:42 Baclofen (Baclofen 10 Mg Tab) 5 mg PO BID PRN PRN Reason: Headache/Neck Pain Stop: 04/05/22 02:42 Cetirizine HCl (Cetirizine Hcl 10 Mg Tablet) 10 mg PO QAM [facility] Stop: 04/05/22 08:59 Last Admin: 03/06/22 08:37 Dose: 10 mg Documented by: Desipramine HCl (Desipramine Hcl 25 Mg Tab) 25 mg PO DAILY [facility] Stop: 04/05/22 08:59 Last Admin: 03/06/22 08:37 Dose: 25 mg Documented by: Duloxetine HCl (Duloxetine Hcl 60 Mg Cap) 120 mg PO DAILY [facility] Stop: 04/05/22 08:59 Last Admin: 03/06/22 08:37 Dose: 120 mg Documented by: Folic Acid (Folic Acid 400 Mcg Tab) 400 mcg PO [facility] Stop: 04/05/22 20:59 Furosemide (Furosemide 40 Mg/4 Ml Vial) 40 mg IV BIDM [facility] Stop: 04/05/22 16:59 Gabapentin (Gabapentin 300 Mg Cap) 300 mg PO BID@0700,1100 [facility] Stop: 04/05/22 11:59 Last Admin: 03/06/22 12:48 Dose: 300 mg Documented by: Gabapentin (Gabapentin 300 Mg Cap) 900 mg PO [facility] Stop: 04/05/22 20:59 Hydromorphone HCl (Hydromorphone Inj 0.5 Mg/0.5 Ml Syr) 0.5 mg IV Q4H PRN PRN Reason: Pain Stop: 03/20/22 06:38 Hydroxyzine HCl (Hydroxyzine Hcl 25 Mg Tab) 25 mg PO QAM [facility] Stop: 04/05/22 08:59 Last Admin: 03/06/22 08:37 Dose: 25 mg Documented by: Promethazine HCl 12.5 mg/ (Sodium Chloride) 50.5 mls @ 202 mls/hr IV Q6H PRN PRN Reason: Nausea And Vomiting Stop: 04/05/22 02:42 Lorazepam 0.5 mg/ Syringe 0.5 mls @ 2 mls/min IV Q6H PRN PRN Reason: Anxiety Stop: 04/05/22 02:42 Last Admin: 03/06/22 04:36 Dose: 2 mls/min Documented by: Heparin Sodium/Dextrose (Heparin Sodium/Dextrose) 25,000 units in 500 mls @ 0 mls/hr IV .Q0M [facility]; Protocol Stop: 04/05/22 03:44 Last Titration: 03/06/22 09:09 Dose: 0 units/hr, 0 mls/hr Documented by: Iron Sucrose 400 mg/ Sodium (Chloride) 270 mls @ 108 mls/hr IV TODAY ONE Stop: 03/06/22 13:18 Last Admin: 03/06/22 11:40 Dose: 108 mls/hr Documented by: Levothyroxine Sodium (Levothyroxine Sodium 50 Mcg Tablet) 50 mcg PO DAILYBB [facility] Stop: 04/05/22 06:29 Last Admin: 03/06/22 06:18 Dose: 50 mcg Documented by: Lidocaine (Lidocaine 5% 1 Patch) 1 patch TD DAILY PRN PRN Reason: Pain Stop: 04/05/22 02:42 Memantine (Memantine Hcl 10 Mg Tab) 10 mg PO BIDM [facility] Stop: 04/05/22 07:59 Last Admin: 03/06/22 08:37 Dose: 10 mg Documented by: Miscellaneous (Remove Lidoderm Patch) 1 ea N/A DAILY@2100 PRN PRN Reason: if patch was applied in am Stop: 04/05/22 20:59 Multivitamins/Minerals (Cerovite Adv Formula Tab) 1 tab PO HS [facility] Stop: 04/05/22 20:59 Nitroglycerin (Nitroglycerin Sl 0.4 Mg/Tab Tab) 0.4 mg SL PRN PRN PRN Reason: cp Stop: 04/05/22 03:41 Last Admin: 03/06/22 06:17 Dose: 0.4 mg Documented by: Pantoprazole Sodium (Pantoprazole 40 Mg Tab) 40 mg PO BID [facility] Stop: 04/05/22 08:59 Last Admin: 03/06/22 08:38 Dose: 40 mg Documented by: Potassium Chloride (Potassium Chloride Crtab 20 Meq Tabcr) 20 meq PO BIDM [facility] Stop: 04/05/22 16:59 Propranolol HCl (Propranolol Hcl 20 Mg Tab) 40 mg PO BID [facility] Stop: 04/05/22 08:59 Last Admin: 03/06/22 08:38 Dose: 40 mg Documented by: Tramadol HCl (Tramadol Hcl 50 Mg Tablet) 50 mg PO Q6 PRN PRN Reason: Pain Stop: 04/05/22 02:42 Last Admin: 03/06/22 06:44 Dose: 50 mg Documented by: Trazodone HCl (Trazodone Hcl 100 Mg Tab) 100 mg PO HS PRN PRN Reason: Sleep Stop: 04/05/22 02:42
[2022-03-06] MEDS: POTASSIUM CHLORIDE CRTAB 20 MEQ TABCR PO SCH (17:02)
[2022-03-06] MEDS: FUROSEMIDE 40 MG/4 ML VIAL IV SCH (17:02)
[2022-03-06] MEDS: CEROVITE ADV FORMULA TAB PO SCH (20:18)
[2022-03-06] MEDS: FOLIC ACID 400 MCG TAB PO SCH (20:19)
[2022-03-06] MEDS: GABAPENTIN 600 MG TAB PO SCH (20:21)
[2022-03-06] MEDS ORDERED: GABAPENTIN 300 MG CAP PO SCH (21:00)
--- NOTE | 2022-03-07 06:15 | Electrocardiogram Report ---
Test Reason : Blood Pressure : / mmHG Vent. Rate : 095 BPM Atrial Rate : 095 BPM P-R Int : 136 ms QRS Dur : 084 ms QT Int : 370 ms P-R-T Axes : 060 -09 042 degrees QTc Int : 464 ms Normal sinus rhythm Low voltage QRS Borderline ECG When compared with ECG of 14-NOV-2020 22:06, No significant change was found Confirmed by Christopher Sandoval ([id number]) on 03/07/2022 6:15:07 AM Referred By: REFERRED SELF Confirmed By:Christopher Sandoval
--- NOTE | 2022-03-07 06:27 | Electrocardiogram Report ---
Test Reason : Blood Pressure : / mmHG Vent. Rate : 082 BPM Atrial Rate : 082 BPM P-R Int : 138 ms QRS Dur : 084 ms QT Int : 394 ms P-R-T Axes : 064 021 041 degrees QTc Int : 460 ms Normal sinus rhythm Low voltage QRS Borderline ECG When compared with ECG of 05-MAR-2022 23:28, No significant change was found Confirmed by Christopher Sandoval ([id number]) on 03/07/2022 6:26:55 AM Referred By: REFERRED SELF Confirmed By:Christopher Sandoval
[2022-03-07] MEDS: LEVOTHYROXINE SODIUM 50 MCG TABLET PO SCH (06:41)
[2022-03-07] MEDS: GABAPENTIN 300 MG CAP PO SCH ×2 (06:41→11:00)
--- NOTE | 2022-03-07 07:20 | Cardiology Progress Note ---
Date of Service March 07, 2022 Assessment & Plan (1) Chest pain: (2) REID (dyspnea on exertion): (3) Bilateral lower extremity edema: (4) Elevated troponin: (5) Anemia: (6) Prolonged QT interval: Plan: Chest pain and shortness of breath in the setting of hypervolemia. Mildly elevated troponin of 21.6>> trending down, 20. EKG without evidence of ACS. Echo with stable biventricular systolic function, Grade I diastolic dysfunction, and no evidence of significant valvular disease. Lower extremity edema likely multifactorial due to fluid retention caused by recent steroid use in adjunct with gabapentin use, and dietary indiscretions. Also noted to have iron defi ciency anemia. Receiving supplementation. Prolonged QTc of 482 ms on EKG this am- avoid QT prolonging medications, trend electrolytes and replace as necessary. K goal of 4.0 and mag goal of 2.0. Will give an addition 20 meq of KCL this am. -Recent EKG and echo not suggestive of NSTEMI. HS Troponin likely elevated in the setting of increased cardiac demand/hypervolemia. -Low Hbg possibly dilutional. Did receive IV iron yesterday. Hemoglobin improved as well as patients volume status today. -Patient does still remain mildly hypervolemic on exam- recommend continuing with IV diuretics today, can consider transition to PO Lasix tomorrow. -Continue to monitor electrolytes and replace as needed, potassium goal of 4.0 and mag goal of 2.0 -Can consider outpatient stress testing. -Continue to monitor on telemetry while inpatient. Case discussed with Dr. Torre- will follow. Admission and Anticipated Discharge Date Admission Date: March 06, 2022 Supervising Physician Co-Signing Physician Notes Supervising Physician Attestation: I have personally performed a history and physical examination on the patient. I agree with the nurse practitioner's findings and plan as documented with the following additions. Subjective: Patient in good spirits. Feeling well. She is happy to be able to see her ankle bones. Telemetry reveals stable sinus rhythm. Exam: Cardiovascular: Regular rhythm, no murmurs, trace edema Data: As noted above Assessment and Plan: Noncardiac volume overload. -Continue furosemide. Supplement electrolytes as planned. Repeat EKG tomorrow. Agree with iron supplementation, the Jass [facility]pe recommended as an outpatient, IV iron infusing at the time of my assessment. DVT prophylaxis: Ambulate in hallway as tolerated. Taran Torre, DO Subjective 41 year old female with volume overload in the setting of prednisone use and chronic gabapentin use. Echocardiogram showing normal biventricular function, LVEF 60-65% without WMA, grade I diastolic dysfunction, no significant valvular heart disease. Being diuresed with IV Lasix. EKG 03/07: NSR 68 bpm, prolonged QTc of 482 ms Labs: Hemoglobin improving- 8.6>>10.0, potassium 3.7, mag 1.9 I&O: +1.2L Weight: 119.7kg >> 111.2 kg Upon entrance into the room patient resting comfortably in bed. HOB flat. Notes that she is feeling much better. No further episodes of chest pain, does have some mild REID but notes significant improvement. Lower extremity edema minimal, isolated in the pedal region at this time. No orthopnea or PND. No palpitations, dizziness, or syncope. Denies any bleeding. Review of Systems Review of Systems: All systems reviewed & are unremarkable except as noted in HPI & below Physical Exam Constitutional: WD/WN, vitals as above no acute distress Eyes: PERRL, conjunctivae normal, anicteric sclerae ENMT: external ear and nose normal, oropharynx normal Neck: normal visual inspection and trachea midline Respiratory: normal respiratory effort; no respiratory distress and no cough Auscultation: + rales (fine crackles in BL bases); no rhonchi and no wheezes Cardiovascular: Rate/Rhythm: regular rate and regular rhythm Heart Sounds: normal S1 and normal S2 Vessels: no JVD and no carotid bruit Extremities: + pedal edema (+1 BL pedal edema) Gastrointestinal (Abdomen): Inspection/Auscultation: abdomen normal to inspection and normal bowel sounds; abdomen not distended and no abdominal edema Percussion/Palpation: abdomen soft; abdomen nontender Rectal Exam: + hemorrhoids (per patient ) Musculoskeletal: no cyanosis or clubbing, extremities motor strength 5/5 Skin: no rashes, warm and dry Neurologic: PERRL, EOMI, accommodation nl, no face palsy, no dysarthria Psychiatric: A+Ox3, euthymic affect Results & Data ([facility]) Vital Signs (Past 12 Hours) Vital Signs Temp Pulse Pulse Resp BP Pulse Ox 03/07/22 07:10 36.8 C 70 20 133/87 92 07/06/22 03:21 36.5 C 74 20 126/82 93 03/07/22 00:00 70 03/06/22 23:06 36.9 C 77 20 126/81 93 Laboratory Results Coagulation 03/06/22 Range/Units 09:59 APTT 25.4 (21.0-31.0) Seconds Lipids 03/06/22 Range/Units 05:31 Triglycerides 194 H (0-150) mg/dl Cholesterol 156 (0-200) mg/dl HDL Cholesterol 37 mg/dl Cholesterol/HDL Ratio 4.2 (0-5) CBC 03/07/22 Range/Units 07:32 WBC 8.21 (4.8-10.8) K/uL RBC 4.23 (4.2-5.4) M/uL Hgb 10.0 L (12.0-16.0) g/dL Hct 32.9 L (37-47) % Plt Count 281 (130-400) K/uL Neut # (Auto) 5.84 (1.4-6.5) K/uL Lymph # (Auto) 1.57 (1.2-3.4) K/uL [place] # (Auto) 0.49 (0.11-0.59) K/uL Eos # (Auto) 0.24 (0-0.5) K/uL Baso # (Auto) 0.02 (0-0.2) K/uL Comprehensive Metabolic Panel 03/07/22 Range/Units 07:32 Sodium 137 (136-145) mmol/L Potassium 3.7 (3.5-5.1) mmol/L Chloride 100 (98-107) mmol/L Carbon Dioxide 28 (21-32) mmol/L BUN 7 (6-23) mg/dl Creatinine 0.79 (0.6-1.2) mg/dl Glucose 105 H (70-99(Fasting)) mg/dl Calcium 9.0 (8.5-10.1) mg/dl Intake and Output 03/06/22 03/07/22 03/07/22 22:59 06:59 14:59 Intake Total 880 / 1286.667 Output Total Balance 879 / 1285.667 Intake: Oral 880 / 930 Output: # Bowel Movements Other: # Unmeasured Voids 3 Weight 111.2 kg Weight Measurement Method Built in [facility] (1) Anemia Anemia type: unspecified type Qualified Code(s): D64.9 - Anemia, unspecified
[2022-03-07 08:07] LABS: Hematocrit (blood only) 32.9 % (37-47); Mean Corpuscular Hemoglobin 23.6 pg (25-34); Mean Corpuscular Volume 77.8 fL (80-100); Mean Platelet Volume 9.1 fL (7.4-10.4); Platelet Count 281 K/uL (130-400); RDW Coefficient of Variation 19.3 % (11.5-14.5); RDW Standard Deviation 53.5 fL (36.4-46.3); Red Blood Count 4.23 M/uL (4.2-5.4); White Blood Count 8.21 K/uL (4.8-10.8)
[2022-03-07] MEDS: FUROSEMIDE 40 MG/4 ML VIAL IV SCH ×2 (08:18→16:48)
[2022-03-07] MEDS: DULoxetine HCL 60 MG CAP PO SCH (08:18)
[2022-03-07] MEDS: hydrOXYzine HCl 25 MG TAB PO SCH (08:18)
[2022-03-07] MEDS: PANTOprazole 40 MG TAB PO SCH ×2 (08:18→21:48)
[2022-03-07] MEDS: CETIRIZINE HCL 10 MG TABLET PO SCH (08:18)
[2022-03-07] MEDS: DESIPRAMINE HCL 25 MG TAB PO SCH (08:18)
[2022-03-07] MEDS: PROPRANOLOL HCL 20 MG TAB PO SCH ×2 (08:18→21:49)
[2022-03-07] MEDS: POTASSIUM CHLORIDE CRTAB 20 MEQ TABCR PO SCH ×2 (08:18→16:49)
[2022-03-07] MEDS: MEMANTINE HCL 10 MG TAB PO SCH ×2 (08:18→16:48)
[2022-03-07 08:28] LABS: Mean Corpuscular Hgb Conc 30.4 g/dL (32-36)
[2022-03-07 08:30] LABS: Basophils # (auto) 0.02 K/uL (0-0.2); Basophils % (auto) 0.2 %; Eosinophils # (auto) 0.24 K/uL (0-0.5); Eosinophils % (auto) 2.9 %; Immature Granulocytes # (auto) 0.05 K/uL (0.00-0.02); Immature Granulocytes % (auto) 0.6 %; Lymphocytes # (auto) 1.57 K/uL (1.2-3.4); Lymphocytes % (auto) 19.1 %; Monocytes # (auto) 0.49 K/uL (0.11-0.59); Neutrophils # (auto) 5.84 K/uL (1.4-6.5); Neutrophils % (auto) 71.2 %; Ovalocytes 1+; Polychromasia 1+
[2022-03-07 08:32] LABS: BUN Creatinine Ratio 8.9 (10-20); Creatinine Clr Calc Pharmacy 118.4 ml/min; Est GFR (African American) 107.8 ml/min; Magnesium 1.9 mg/dl (1.7-2.4); Potassium 3.7 mmol/L (3.5-5.1)
[2022-03-07] MEDS ORDERED: ASPIRIN 81 MG ECTAB PO SCH (09:00)
[2022-03-07] MEDS ORDERED: POTASSIUM CHLORIDE CRTAB 20 MEQ TABCR PO STA (09:46)
[2022-03-07] MEDS ORDERED: IRON SUCROSE 400 MG in SODIUM CHLORIDE 0.9% 250 ML IV ONE (10:15)
--- NOTE | 2022-03-07 12:01 | Hospitalist Progress Note ---
Date of Service March 07, 2022 Assessment & Plan (1) Acute diastolic CHF (congestive heart failure): (2) Chest pain: Plan: 41 year old female who presented to the ED 03/05 with progressive REID, leg swelling, abdominal bloating, orthopnea and weight gain of 15 lb in 1 week. She was recently treated with a course of prednisone for poison gabi but had completed the course few weeks back. Acute diastolic CHF - Echo with EF 60-65%, no WMG, grade 1 diastolic dysfunction, no significant valvular pathology - Weight gain of 15 lb in 1 week along with leg/abd swelling, orthopnea and REID - Diuresing well with iv lasix, symptoms improving, labs stable. - Weight trending down--> 119.7 kg->116.5 kg->111.2 kg. Baseline wt of about 107 kg per patient. - Continue iv lasix 40 mg bid with strict I and Os, daily weight, telemetry - Cardiology following Chest pain with trop elevation- Suspected demand ischemia without NSTEMI. Trop minimally elevated and flat trend so far, no more chest pain. Echo reviewed. Further management per cardio- ?OP Stress test per cardio. Prior UDS with MDMA- will check UDS. Iron deficiency anemia- Iron studies show iron deficiency, B12 and folate normal. Hb improved. No overt bleeding. FOBT pending- states has Marlon's esophagus and had OP EGD colonoscopy couple years ago. Denies heavy menstrual bleeding. No black stool or bleeding. - Will continue iv venofer D2/3. FOBT pending Hypokalemia- resolved. on supplementation while on diuresis Hypothyroid- on synthroid. TSH mildly elevated, T4 normal. Recommend repeat TFT in 4-6 weeks as OP. DVT ppx- sc lovenox Dispo- Pending optimization of volume status- on iv lasix and monitoring labs. Admission and Anticipated Discharge Date Admission Date: March 06, 2022 Subjective She feels much better today. Diuresing well. Swelling and abd bloating improved. No more dyspnea. No more chest pain. States she does not have heavy menses, lasts for 4 days and no clots. Denies any black stool or bleeding. Had EGD colonoscopy couple years ago. Physical Exam Physical Exam: General: Lying comfortably in bed, not in distress, on room air HEENT: EOMI, ADELINA, MMM Chest: Clear breath sounds bilaterally, no wheezes or crackles CVS: Regular rate and rhythm, normal heart sounds, no murmur Abdomen: Soft, non tender, not distended, normal bowel sounds Neuro: Awake, alert, oriented, conversing well, non focal Extremities: 1+ LE edema present Results & Data Results & Data ([facility]) Vital Signs (Past 12 Hours) Vital Signs Temp Pulse Pulse Resp BP Pulse Ox 03/07/22 11:33 37.1 C 68 20 124/83 94 03/07/22 07:10 36.8 C 70 20 133/87 92 03/07/22 03:21 36.5 C 74 20 126/82 93 03/07/22 00:00 70 Laboratory Results Short CBC 03/07/22 Range/Units 07:32 WBC 8.21 (4.8-10.8) K/uL Hgb 10.0 L (12.0-16.0) g/dL Hct 32.9 L (37-47) % Plt Count 281 (130-400) K/uL BMP 03/07/22 07:32 Sodium 137 Potassium 3.7 Chloride 100 Carbon Dioxide 28 BUN 7 Creatinine 0.79 Glucose 105 H Calcium 9.0 Medications Administered Current Inpatient Medications Acetaminophen (Acetaminophen 325 Mg Tab) 650 mg PO Q4H PRN PRN Reason: Pain or Fever Stop: 04/05/22 02:42 Baclofen (Baclofen 10 Mg Tab) 5 mg PO BID PRN PRN Reason: Headache/Neck Pain Stop: 04/05/22 02:42 Cetirizine HCl (Cetirizine Hcl 10 Mg Tablet) 10 mg PO QAM [facility] Stop: 04/05/22 08:59 Last Admin: 03/07/22 08:18 Dose: 10 mg Documented by: Desipramine HCl (Desipramine Hcl 25 Mg Tab) 25 mg PO DAILY [facility] Stop: 04/05/22 08:59 Last Admin: 03/07/22 08:18 Dose: 25 mg Documented by: Duloxetine HCl (Duloxetine Hcl 60 Mg Cap) 120 mg PO DAILY [facility] Stop: 04/05/22 08:59 Last Admin: 03/07/22 08:18 Dose: 120 mg Documented by: Folic Acid (Folic Acid 400 Mcg Tab) 400 mcg PO [facility] Stop: 04/05/22 20:59 Last Admin: 03/06/22 20:19 Dose: 400 mcg Documented by: Furosemide (Furosemide 40 Mg/4 Ml Vial) 40 mg IV BIDM [facility] Stop: 04/05/22 16:59 Last Admin: 03/07/22 08:18 Dose: 40 mg Documented by: Gabapentin (Gabapentin 300 Mg Cap) 300 mg PO BID@0700,1100 [facility] Stop: 04/05/22 11:59 Last Admin: 03/07/22 11:00 Dose: 300 mg Documented by: Gabapentin (Gabapentin 600 Mg Tab) 600 mg PO HS [facility] Stop: 04/05/22 20:59 Last Admin: 03/06/22 20:21 Dose: 600 mg Documented by: Hydromorphone HCl (Hydromorphone Inj 0.5 Mg/0.5 Ml Syr) 0.5 mg IV Q4H PRN PRN Reason: Pain Stop: 03/20/22 06:38 Hydroxyzine HCl (Hydroxyzine Hcl 25 Mg Tab) 25 mg PO QAM [facility] Stop: 04/05/22 08:59 Last Admin: 03/07/22 08:18 Dose: 25 mg Documented by: Promethazine HCl 12.5 mg/ (Sodium Chloride) 50.5 mls @ 202 mls/hr IV Q6H PRN PRN Reason: Nausea And Vomiting Stop: 04/05/22 02:42 Lorazepam 0.5 mg/ Syringe 0.5 mls @ 2 mls/min IV Q6H PRN PRN Reason: Anxiety Stop: 04/05/22 02:42 Last Admin: 03/06/22 04:36 Dose: 2 mls/min Documented by: Iron Sucrose 400 mg/ Sodium (Chloride) 270 mls @ 108 mls/hr IV TODAY ONE Stop: 03/07/22 12:44 Last Admin: 03/07/22 11:00 Dose: 108 mls/hr Documented by: Levothyroxine Sodium (Levothyroxine Sodium 50 Mcg Tablet) 50 mcg PO DAILYBB [facility] Stop: 04/05/22 06:29 Last Admin: 03/07/22 06:41 Dose: 50 mcg Documented by: Lidocaine (Lidocaine 5% 1 Patch) 1 patch TD DAILY PRN PRN Reason: Pain Stop: 04/05/22 02:42 Memantine (Memantine Hcl 10 Mg Tab) 10 mg PO BIDM [facility] Stop: 04/05/22 07:59 Last Admin: 03/07/22 08:18 Dose: 10 mg Documented by: Miscellaneous (Remove Lidoderm Patch) 1 ea N/A DAILY@2100 PRN PRN Reason: if patch was applied in am Stop: 04/05/22 20:59 Multivitamins/Minerals (Cerovite Adv Formula Tab) 1 tab PO HS [facility] Stop: 04/05/22 20:59 Last Admin: 03/06/22 20:18 Dose: 1 tab Documented by: Nitroglycerin (Nitroglycerin Sl 0.4 Mg/Tab Tab) 0.4 mg SL PRN PRN PRN Reason: cp Stop: 04/05/22 03:41 Last Admin: 03/06/22 06:17 Dose: 0.4 mg Documented by: Pantoprazole Sodium (Pantoprazole 40 Mg Tab) 40 mg PO BID [facility] Stop: 04/05/22 08:59 Last Admin: 03/07/22 08:18 Dose: 40 mg Documented by: Potassium Chloride (Potassium Chloride Crtab 20 Meq Tabcr) 20 meq PO BIDM [facility] Stop: 04/05/22 16:59 Last Admin: 03/07/22 08:18 Dose: 20 meq Documented by: Propranolol HCl (Propranolol Hcl 20 Mg Tab) 40 mg PO BID [facility] Stop: 04/05/22 08:59 Last Admin: 03/07/22 08:18 Dose: 40 mg Documented by: Tramadol HCl (Tramadol Hcl 50 Mg Tablet) 50 mg PO Q6 PRN PRN Reason: Pain Stop: 04/05/22 02:42 Last Admin: 03/06/22 06:44 Dose: 50 mg Documented by: Trazodone HCl (Trazodone Hcl 100 Mg Tab) 100 mg PO HS PRN PRN Reason: Sleep Stop: 04/05/22 02:42
[2022-03-07 18:57] LABS: Amphetamines+Metham, Urine Neg (Neg); Barbiturates, Urine Neg (Neg); Benzodiazepine, Urine Neg (Neg); Cocaine, Urine Neg (Neg); MDMA (Ecstacy), Urine Neg (Neg); Methadone, Urine Neg (Neg); Opiate, Urine Neg (Neg); Phencyclidine, Urine Neg (Neg)
[2022-03-07] MEDS: GABAPENTIN 600 MG TAB PO SCH (21:48)
[2022-03-07] MEDS: CEROVITE ADV FORMULA TAB PO SCH (21:48)
[2022-03-07] MEDS: FOLIC ACID 400 MCG TAB PO SCH (21:49)
[2022-03-07] MEDS: traMADol HCL 50 MG TABLET PO PRN (21:54)
[2022-03-07] MEDS ORDERED: POLYETHYLENE (MIRALAX) 17 GM PACK PO PRN (21:59)
--- NOTE | 2022-03-07 22:52 | Electrocardiogram Report ---
Test Reason : Blood Pressure : / mmHG Vent. Rate : 068 BPM Atrial Rate : 068 BPM P-R Int : 144 ms QRS Dur : 082 ms QT Int : 454 ms P-R-T Axes : 056 016 038 degrees QTc Int : 482 ms Poor data quality, interpretation may be adversely affected Normal sinus rhythm Prolonged QT Abnormal ECG When compared with ECG of 06-MAR-2022 06:08, QT has lengthened Confirmed by Christopher Sandoval ([id number]) on 03/07/2022 10:51:43 PM Referred By: REFERRED SELF Confirmed By:Christopher Sandoval
[2022-03-08] MEDS ORDERED: LORazepam 0.5 MG TAB PO PRN (06:22)
[2022-03-08] MEDS: LEVOTHYROXINE SODIUM 50 MCG TABLET PO SCH (06:39)
[2022-03-08] MEDS: GABAPENTIN 300 MG CAP PO SCH ×2 (06:43→10:01)
--- NOTE | 2022-03-08 07:27 | Cardiology Progress Note ---
Date of Service March 08, 2022 Assessment & Plan (1) Chest pain: (2) REID (dyspnea on exertion): (3) Bilateral lower extremity edema: (4) Elevated troponin: (5) Anemia: (6) Prolonged QT interval: Plan: 41 year old female with noncardiac volume overload . Mildly elevated troponin of 21.6>> trending down, 20. EKG without evidence of ACS. Echo with stable biventricular systolic function, Grade I diastolic dysfunction, and no evidence of significant valvular disease. Lower extremity edema likely multifactorial due to fluid retention caused by recent steroid use in adjunct with gabapentin use, and dietary indiscretions. Also noted to have iron deficiency anemia. Receiving supplementation. Now euvolemic on exam. Prolonged QTc of 482ms on EKG 03/07, reduced to 450 ms this am- avoid QT prolonging medications, trend electrolytes and replace as necessary. K goal of 4.0 and mag goal of 2.0. -Recent EKG and echo not suggestive of NSTEMI. HS Troponin likely elevated in the setting of increased cardiac demand/hypervolemia. -AMANDA, Receiving IV Venofer, recommend discharge on PO iron supplementation, Vitron-C daily. -Now euvolemic on exam, stop IV Lasix. She will likely require intermediate designer diuretic therapy. Recommend that patient is discharged home on PO Lasix 40 mg daily with KCL supplementation, 20 meq daily. Repeat BMP 1 week after discharge. -Continue to monitor electrolytes and replace as needed while inpatient, potassium goal of 4.0 and mag goal of 2.0 -Can consider outpatient stress testing. -Continue to monitor on telemetry while inpatient. Case discussed with Dr. Torre- will follow. Lluvia dasilva dc from a cardiology standpoint. I will arrange for cardiology follow up within the next 4 weeks. Admission and Anticipated Discharge Date Admission Date: March 06, 2022 Supervising Physician Co-Signing Physician Notes Supervising Physician Attestation: I have personally performed a history and physical examination on the patient. I agree with the nurse practitioner's findings and plan as documented with the following additions. Subjective: Patient feeling much improved. Edema improved. Another dose of IV iron sucrose infusing at the time of my assessment. Exam: Cardiovascular regular rhythm, edema resolved Data: EKG performed 03/08/2022, sinus rhythm 77 bpm, nonspecific T wave changes, likely due to lead placement as the morphology of lead V3 is very similar to that of V2, 3. QT interval is now normal 150 ms Assessment and Plan: Noncardiac volume overload Anemia -Stable for discharge, furosemide 40 mg daily with potassium replacement. Can follow-up with PCP. Taran Torre, DO Subjective 41 year old female with volume overload in the setting of prednisone use and chronic gabapentin use. Echocardiogram showing normal biventricular function, LVEF 60-65% without WMA, grade I diastolic dysfunction, no significant valvular heart disease. Being diuresed with IV Lasix. EKG 03/08: NSR 77 bpm, QTc of 450 ms Labs: Hemoglobin improving- 8.6>>11.5, WBC mildly elevated,11.08. Potassium 3.9, mag 2.0 Weight: 119.7kg >> 107 kg Upon entrance into the room patient resting in bed with HOB flat. Feels back to her baseline. No chest pain or shortness of breath. Lower extremity edema resolved. No palpitations or dizziness. Eager to go home. Review of Systems Review of Systems: All systems reviewed & are unremarkable except as noted in HPI & below Physical Exam Constitutional: WD/WN, vitals as above no acute distress Eyes: PERRL, conjunctivae normal, anicteric sclerae ENMT: external ear and nose normal, oropharynx normal Neck: normal visual inspection and trachea midline Respiratory: normal respiratory effort, lungs clear to auscultation normal respiratory effort; no respiratory distress and no cough Auscultation: lungs clear to auscultation bilaterally; no rales, no rhonchi and no wheezes Cardiovascular: RRR, no murmur, no edema Rate/Rhythm: regular rate and regular rhythm Heart Sounds: normal S1 and normal S2 Vessels: no JVD and no carotid bruit Extremities: no edema Gastrointestinal (Abdomen): Inspection/Auscultation: abdomen normal to inspection and normal bowel sounds; abdomen not distended and no abdominal edema Percussion/Palpation: abdomen soft; abdomen nontender Rectal Exam: + hemorrhoids (per patient ) Musculoskeletal: no cyanosis or clubbing, extremities motor strength 5/5 Skin: no rashes, warm and dry Neurologic: PERRL, EOMI, accommodation nl, no face palsy, no dysarthria Psychiatric: A+Ox3, euthymic affect Results & Data (MN) Vital Signs (Past 12 Hours) Vital Signs Temp Pulse Pulse Resp BP Pulse Ox 03/08/22 06:56 36.8 C 75 18 116/80 92 03/08/22 02:50 37.3 C 91 H 18 122/72 91 03/07/22 23:08 91 H 03/07/22 22:49 37.1 C 89 18 119/76 92 Laboratory Results CBC 03/08/22 Range/Units 07:02 WBC 11.08 H (4.8-10.8) K/ul RBC 4.78 (3.93-5.22) M/uL Hgb 11.5 L (12.0-16.0) g/dl Hct 36.8 (34.1-44.9) % Plt Count 379 (130-400) K/uL Comprehensive Metabolic Panel 03/08/22 Range/Units 07:02 Sodium 137 (136-145) mmol/L Potassium 3.9 (3.5-5.1) mmol/L Chloride 99 (98-107) mmol/L Carbon Dioxide 28 (21-32) mmol/L BUN 13 (6-23) mg/dl Creatinine 0.79 (0.6-1.2) mg/dl Glucose 122 H (70-99(Fasting)) mg/dl Calcium 9.5 (8.5-10.1) mg/dl Intake and Output 03/07/22 03/08/22 03/08/22 22:59 06:59 14:59 Intake Total 150 / 1270 200 / 1270 Output Total 700 / 700 Balance -550 / 570 200 / 570 Intake: Oral 150 / 1000 200 / 1000 Output: Urine 700 / 700 Other: Weight 107 kg Weight Measurement Method Built in [facility] (1) Anemia Anemia type: unspecified type Qualified Code(s): D64.9 - Anemia, unspecified
[2022-03-08 07:38] LABS: Hematocrit (blood only) 36.8 % (34.1-44.9); Hemoglobin 11.5 g/dl (12.0-16.0); Mean Corpuscular Hemoglobin 24.1 pg (25.0-34.0); Mean Corpuscular Hgb Conc 31.3 g/dL (32.0-36.0); Mean Platelet Volume 9.7 fL (9.4-12.3); Nucleated RBC # (auto) 0.05 K/uL (0-0); Nucleated RBC % (auto) 0.5 %; Platelet Count 379 K/uL (130-400); RDW Coefficient of Variation 19.8 % (11.5-14.5); RDW Standard Deviation 50.9 fL (36.4-46.3); Red Blood Count 4.78 M/uL (3.93-5.22); White Blood Count 11.08 K/ul (4.8-10.8)
[2022-03-08] MEDS: MEMANTINE HCL 10 MG TAB PO SCH (07:43)
[2022-03-08] MEDS: PROPRANOLOL HCL 20 MG TAB PO SCH (07:43)
[2022-03-08] MEDS: hydrOXYzine HCl 25 MG TAB PO SCH (07:43)
[2022-03-08] MEDS: POTASSIUM CHLORIDE CRTAB 20 MEQ TABCR PO SCH (07:43)
[2022-03-08] MEDS: DULoxetine HCL 60 MG CAP PO SCH (07:43)
[2022-03-08] MEDS: CETIRIZINE HCL 10 MG TABLET PO SCH (07:44)
[2022-03-08] MEDS: DESIPRAMINE HCL 25 MG TAB PO SCH (07:44)
[2022-03-08] MEDS: PANTOprazole 40 MG TAB PO SCH (07:44)
[2022-03-08] MEDS: FUROSEMIDE 40 MG/4 ML VIAL IV SCH (07:44)
[2022-03-08 07:58] LABS: BUN Creatinine Ratio 16.5 (10-20); Calcium 9.5 mg/dl (8.5-10.1); Est GFR (African American) 107.8 ml/min; Potassium 3.9 mmol/L (3.5-5.1)
[2022-03-08] MEDS ORDERED: IRON SUCROSE 400 MG in SODIUM CHLORIDE 0.9% 250 ML IV ONE (09:00)
--- NOTE | 2022-03-08 15:25 | Discharge Summary ---
Date of Service March 08, 2022 Admission HPI Per Admitting Provider History is obtained from the patient, family, and records. Medical history significant for chronic migraine on Namenda, mood disorder, PCOS, insulin resistance as per records, hypothyroidism, gastroparesis, history syringomyelia as per records, hemorrhoids status post surgery, chronic anemia (baseline hemoglobin of 10), nocturnal hypoxemia as per records . Last confinement October 2020 for post hemorrhoidectomy fever. Weeks history of bilateral leg swelling, fluid retention, weight gain. Shortness of breath mostly exertion. No unusual cough symptoms. Recent outpatient oral steroid course for poison gabi dermatitis. Patient had central chest pain going to the left side last night. No abdominal pain. Episodic bleeding from hemorrhoids as per patient. Aspirin and Lasix given at the ER. Chest pain relieved by nitroglycerin given at the ER. MEDICAL HISTORY: As above. SURGERIES: Cholecystectomy, sinus surgery, Eye surgery, hemorrhoidectomy FAMILY HISTORY: Diabetes, heart disease. 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 Admission Exam Per Admitting Provider GENERAL: Slight uncomfortable, slightly anxious, morbidly obese, no respiratory distress SKIN: Pallor, warm HEENT: Pale palpebral conjunctivae, no ptosis, moist buccal mucosa NECK : Supple, short neck, no tenderness CHEST : Erythematous patches and streaks (sunburn) in patient's posterior thorax, decreased breath sounds, no tenderness HEART : RRR, no obvious murmurs ABDOMEN: Some distention, nontender EXTREMITIES : Bilateral LE swelling with erythematous spots, no LE tenderness, no other conspicuous deformities noted NEUROLOGIC : Coherent, no facial asymmetry, no other gross focality Principal Diagnosis Acute diastolic CHF, Iron deficiency anemia Discharge Exam General: Lying comfortably in bed, not in distress, on room air HEENT: EOMI, ADELINA, MMM Chest: Clear breath sounds bilaterally, no wheezes or crackles CVS: Regular rate and rhythm, normal heart sounds, no murmur Abdomen: Soft, non tender, not distended, normal bowel sounds Neuro: Awake, alert, oriented, conversing well, non focal Extremities: LE edema resolved Discharge Data Allergies Allergy/AdvReac Type Severity Reaction Status Date / Time morphine Allergy Severe Hives,itchiness,nausea Verified 03/06/22 00:06 and vomiting topiramate Allergy Severe neurological Verified 03/06/22 00:06 symptoms cephalexin Allergy Mild rash Verified 03/06/22 00:06 Consultations 03/06/22 00:24 ED Decision to Admit Stat 03/06/22 02:43 Consult Cardiology Routine Ordered Studies Laboratory Results WBC 11.08 K/ul (4.8-10.8) H 03/08/22 07:02 RBC 4.78 M/uL (3.93-5.22) 03/08/22 07:02 Hgb 11.5 g/dl (12.0-16.0) L 03/08/22 07:02 Hct 36.8 % (34.1-44.9) 03/08/22 07:02 MCV 77.0 fL (80.0-100.0) L 03/08/22 07:02 MCH 24.1 pg (25.0-34.0) L 03/08/22 07:02 MCHC 31.3 g/dL (32.0-36.0) L 03/08/22 07:02 RDW Std Deviation 50.9 fL (36.4-46.3) H 03/08/22 07:02 RDW Coeff of [place] 19.8 % (11.5-14.5) H 03/08/22 07:02 Plt Count 379 K/uL (130-400) 03/08/22 07:02 MPV 9.7 fL (9.4-12.3) 03/08/22 07:02 Immature Gran % (Auto) 0.6 % 03/07/22 07:32 Neut % (Auto) 71.2 % 03/07/22 07:32 Lymph % (Auto) 19.1 % 03/07/22 07:32 [place] % (Auto) 6.0 % 03/07/22 07:32 Eos % (Auto) 2.9 % 03/07/22 07:32 Baso % (Auto) 0.2 % 03/07/22 07:32 Reticulocyte % (Auto) 2.6 % (0.5-2.0) H 03/06/22 05:31 Neut # (Auto) 5.84 K/uL (1.4-6.5) 03/07/22 07:32 Lymph # (Auto) 1.57 K/uL (1.2-3.4) 03/07/22 07:32 [place] # (Auto) 0.49 K/uL (0.11-0.59) 03/07/22 07:32 Eos # (Auto) 0.24 K/uL (0-0.5) 03/07/22 07:32 Baso # (Auto) 0.02 K/uL (0-0.2) 03/07/22 07:32 Reticulocyte # 0.09 10^6/uL (0.02-0.10) 03/06/22 05:31 Immature Gran # (Auto) 0.05 K/uL (0.00-0.02) H 03/07/22 07:32 Absolute Nucleated RBC 0.05 K/uL (0-0) H 03/08/22 07:02 Nucleated RBC % (auto) 0.5 % 03/08/22 07:02 Polychromasia 1+ 03/07/22 07:32 Ovalocytes 1+ 03/07/22 07:32 PT 10.0 Seconds (9.0-12.0) 03/05/22 23:32 INR 0.9 (0.9-1.1) 03/05/22 23:32 APTT 25.4 Seconds (21.0-31.0) 03/06/22 09:59 PTT Ratio 0.9 03/06/22 09:59 Sodium 137 mmol/L (136-145) 03/08/22 07:02 Potassium 3.9 mmol/L (3.5-5.1) 03/08/22 07:02 Chloride 99 mmol/L (98-107) 03/08/22 07:02 Carbon Dioxide 28 mmol/L (21-32) 03/08/22 07:02 Anion Gap 10 (3-11) 03/08/22 07:02 BUN 13 mg/dl (6-23) 03/08/22 07:02 Creatinine 0.79 mg/dl (0.6-1.2) 03/08/22 07:02 Est Cr Clr Drug Dosing 116.0 ml/min 03/08/22 07:02 Est GFR ( Amer) 107.8 ml/min 03/08/22 07:02 Est GFR (Non-Af Amer) 93.0 ml/min 03/08/22 07:02 BUN/Creatinine Ratio 16.5 (10-20) 03/08/22 07:02 Glucose 122 mg/dl (70-99(Fasting)) H 03/08/22 07:02 Calcium 9.5 mg/dl (8.5-10.1) 03/08/22 07:02 Magnesium 2.0 mg/dl (1.7-2.4) 03/08/22 07:02 Iron 33 mcg/dl (35-150) L 03/06/22 05:31 Transferrin 278 mg/dl (200-360) 03/06/22 05:31 Ferritin 11.9 ng/ml (8-388) 03/06/22 05:31 Total Bilirubin 0.5 mg/dl (0.2-1.0) 03/05/22 23:32 AST 15 U/L (13-39) 03/05/22 23:32 ALT 17 U/L (7-52) 03/05/22 23:32 Alkaline Phosphatase 64 U/L (34-104) 03/05/22 23:32 Troponin I High Sens 20.3 pg/ml (0-14) H 03/06/22 05:31 B-Natriuretic Peptide 183 pg/ml (0-100) H 03/05/22 23:32 Total Protein 6.6 gm/dl (6.0-8.3) 03/05/22 23:32 Albumin 3.9 gm/dl (3.4-5.0) 03/05/22 23:32 Globulin 2.7 gm/dl (2.5-4.0) 03/05/22 23:32 Albumin/Globulin Ratio 1.4 (0.9-2) 03/05/22 23:32 Triglycerides 194 mg/dl (0-150) H 03/06/22 05:31 Cholesterol 156 mg/dl (0-200) 03/06/22 05:31 LDL Cholesterol, Calc 80 mg/dl 03/06/22 05:31 VLDL Cholesterol, Calc 39 mg/dl (0-30) H 03/06/22 05:31 HDL Cholesterol 37 mg/dl 03/06/22 05:31 Cholesterol/HDL Ratio 4.2 (0-5) 03/06/22 05:31 Vitamin B12 235 pg/ml (180-914) 03/06/22 05:31 Folate 16.61 ng/ml (>5.38) 03/06/22 05:31 TSH 7.645 uIu/ml (0.300-4.500) H 03/05/22 23:32 Free T4 0.91 ng/dl (0.61-1.60) 03/05/22 23:32 Urine Opiates Screen Neg (Neg) 03/07/22 17:05 Ur Methadone, Qual Neg (Neg) 03/07/22 17:05 Urine Barbiturates Neg (Neg) 03/07/22 17:05 Ur Phencyclidine (PCP) Neg (Neg) 03/07/22 17:05 U Amphetamin/Meth Scrn Neg (Neg) 03/07/22 17:05 MDMA (Ecstasy) Screen Neg (Neg) 03/07/22 17:05 U Benzodiazepines Scrn Neg (Neg) 03/07/22 17:05 Ur Cocaine Metabolite Neg (Neg) 03/07/22 17:05 U Marijuana (THC) Screen Neg (Neg) 03/07/22 17:05 SARS-CoV-2, RNA, NAAT NEGATIVE (NEGATIVE) 03/06/22 00:32 Blood Type O Positive 03/06/22 05:31 Antibody Screen NEGATIVE 03/06/22 05:31 Impressions Chest X-Ray 03/05/22 23:28 SINGLE VIEW CHEST CLINICAL HISTORY: Atypical chest pain FINDINGS: An AP, portable, upright chest radiograph is compared to study dated 11/13/2020 and correlated with chest CT dated 06/18/2019. The cardiomediastinal silhouette is unremarkable. The lungs and pleural spaces are clear. No pneumothorax is seen. The bony thorax is grossly intact. IMPRESSION: No acute cardiopulmonary abnormality. ACT 112: Negative or not required by law. Electronically signed by: Minesh Barnett M.D. 03/06/2022 7:40 AM Hospital Course (1) Acute diastolic CHF (congestive heart failure): (2) Chest pain: 41 year old female who presented to the ED 03/05 with progressive REID, leg swelling, abdominal bloating, orthopnea and weight gain of 15 lb in 1 week. She was recently treated with a course of prednisone for poison gabi but had completed the course few weeks back. She was admitted with diagnosis of acute diastolic CHF and was started on iv lasix 40 mg bid with good diuresis, resolution of her edema/abd bloating and her weight down to her baseline of 107 kg. Her orthopnea and dyspnea completely resolved and she has been ambulating independently in the room. Her chest pain resolved without recurrence. Echo reviewed, UDS negative. Seen by cardiology. Doubt ACS or NSTEMI. Cardiology rec ommended OP follow up with possible stress test as OP. Found to have iron deficiency anemia and received Iv venofer x3 doses and Hemoglobin stable and improving. She is comfortable and stable for discharge. Discharging on oral lasix with potassium supplementation as per cardio recommendation Acute diastolic CHF - Echo with EF 60-65%, no WMG, grade 1 diastolic dysfunction, no significant valvular pathology - Weight gain of 15 lb in 1 week along with leg/abd swelling, orthopnea and REID - S/p IV lasix 40 bid with resolution of her symptoms (dyspnea, orthopnea and weight back to baseline, labs stable) - Weight trending down--> 119.7 kg->116.5 kg->111.2 kg->107 kg which is her baseline. - Continue lasix 40 mg daily with potassium supplementation per cardiology Chest pain with trop elevation- Suspected demand ischemia without NSTEMI. Trop minimally elevated and flat trend so far, no more chest pain. Echo reviewed. Further management per cardio- ?OP Stress test per cardio. UDS negative. Iron deficiency anemia- Iron studies show iron deficiency, B12 and folate normal. Hb improved. No overt bleeding. FOBT pending- states has Marlon's esophagus and had OP EGD colonoscopy couple years ago. Denies heavy menstrual bleeding. No black stool or bleeding. - S/p iv venofer D3/3. Adequately replenished with iron and will not require further oral iron supplementation. F/u with GI as OP. Hypokalemia- resolved. on supplementation while on diuresis Hypothyroid- on synthroid. TSH mildly elevated, T4 normal. Recommend repeat TFT in 4-6 weeks as OP. Total Time Total Time Spent Total Time Spent (In Minutes): 40 Discharge Plan Discharge Items Patient Disposition: Home - Self-Care Reason For Visit: CHF Discharge Diagnosis: Acute diastolic CHF, Iron deficiency anemia Activity: Resume your previous activity Non-emergency contact: Primary Care Provider and Ui Software Engineer Call non-emergency contact if: you have any medication questions and your symptoms worsen Follow-up/Referrals: Taran Torre DO [Ui Software Engineer] - (Date & Time 03/30/2022 10:00 AM Provider Taran Torre DO Department Cardiology, [facility] ) Melania Zhou DO [Primary Care Provider] - (Date & Time 03/14/2022 11:00 AM Provider Lola Redd MD Department Family [facility] ) Diet: Heart Healthy and Low Sodium (2gm) Fluids: 2000ml (8 cups) Addtl Attending Provider Instructions: Start taking lasix 1 tab daily from tomorrow morning along with potassium supplementation Recommend repeat blood work in a week (BMP, CBC) Follow up with cardiology- they might consider stress test as outpatient Follow up with the family doctor Pending Studies at Discharge: No Stand-Alone Forms: My [employer], Smoking Cessation Medications and DC Order Prescriptions: New furosemide 40 mg Tablet 40 mg PO QAM Qty: 30 RF: 0 potassium chloride 20 mEq Tablet,Er Particles/Crystals 20 meq PO QAM Qty: 30 RF: 0 Continued Nurtec ODT 75 mg tablet,disintegrating 75 mg PO UD MDD 2 days a week PRN (Reason: Headache) RF: 0 baclofen 20 mg tablet 5 mg PO BID PRN (Reason: Headache/Neck Pain) RF: 0 trazodone 50 mg tablet 100 mg PO HS PRN (Reason: Sleep) RF: 0 tizanidine 4 mg tablet 4 - 8 mg PO HS RF: 0 folic acid 400 mcg tablet 400 mcg PO HS RF: 0 levothyroxine 50 mcg tablet 50 mcg PO QAM RF: 0 pantoprazole 40 mg tablet,delayed release (DR/EC) 40 mg PO BID RF: 0 promethazine 25 mg tablet 25 mg PO Q6H PRN (Reason: Nausea) RF: 0 memantine 10 mg tablet 10 mg PO BIDM RF: 0 duloxetine 30 mg capsule,delayed release(DR/EC) 120 mg PO DAILY RF: 0 zolmitriptan 5 mg Tablet 2.5 - 5 mg PO BID PRN (Reason: Migraine Headache) RF: 0 magnesium gluconate [Mag-G] 27 mg magnesium (500 mg) tablet 125 mg PO HS RF: 0 multivitamin with minerals Tablet 1 tab PO HS RF: 0 cetirizine 10 mg Tablet 10 mg PO QAM RF: 0 Emgality Pen 120 mg/mL pen injector 120 mg SUBCUT MONTHLY RF: 0 diphenoxylate-atropine 2.5-0.025 mg tablet 1 tab PO QID PRN (Reason: Diarrhea) RF: 0 hydroxyzine HCl 25 mg tablet 25 mg PO QAM RF: 0 desipramine 25 mg tablet 25 mg PO DAILY RF: 0 gabapentin 300 mg capsule See Rx Instructions .ROUTE .COMPLEX RF: 0 pindolol 5 mg tablet 5 mg PO BID RF: 0 ergocalciferol (vitamin D2) [Vitamin D2] 1,250 mcg (50,000 unit) Capsule 1,250 mcg PO WK RF: 0 lorazepam 0.5 mg tablet 0.5 mg PO UD PRN (Reason: procedures/panic) RF: 0 dicyclomine 20 mg Tablet 20 mg PO QID PRN (Reason: Abdominal Discomfort) RF: 0 tramadol 50 mg tablet 50 mg PO Q6 PRN (Reason: Pain) RF: 0 lidocaine [Lidoderm] 5 % adhesive patch,medicated 1 patch topical DAILY PRN (Reason: Pain) RF: 0 Discontinued potassium chloride 10 mEq tablet extended release 10 meq PO HS RF: 0 clonidine HCl 0.1 mg tablet 0.1 mg PO BID PRN (Reason: Hypertension) RF: 0 Discharge Orders: Discharge Order (Routine); Ordered 03/08/22 Ordered By: Balbir Terry Admission Data Admit Date/Time: 03/06/22 01:39 Attending Provider: Balbir Terry Admit Provider: Escobar Holland Primary Care Provider: Melania Zhou Other Providers: Escobar Holland ; Lanre Jarquin ; Taran Torre ; Lux Garcia ; Alexander Zhou ; Roldan Zapata ; Ajay العلي ; Myrtle Hernandez ; Lia Barry ; Celi Ojeda ; Vipul Kim Other Interventions: Discharge Summary Assessment (RN) Last Done: 03/08/22 10:12
--- NOTE | 2022-03-09 05:53 | Electrocardiogram Report ---
Test Reason : Blood Pressure : / mmHG Vent. Rate : 077 BPM Atrial Rate : 077 BPM P-R Int : 132 ms QRS Dur : 078 ms QT Int : 398 ms P-R-T Axes : 052 -21 047 degrees QTc Int : 450 ms Normal sinus rhythm T wave abnormality, consider anterior ischemia Abnormal ECG When compared with ECG of 07-MAR-2022 06:26, T wave inversion more evident in Anterior leads Confirmed by Christopher Sandoval ([id number]) on 03/09/2022 5:53:19 AM Referred By: REFERRED SELF Confirmed By:Christopher Sandoval
[2022-03-09] MEDS ORDERED: POTASSIUM CHLORIDE CRTAB 20 MEQ TABCR PO SCH (09:00)
[2022-03-09] MEDS ORDERED: FUROSEMIDE 40 MG TAB PO SCH (09:00)
== END 2022-03-08 12:27 | disposition home or self-care (01) | DRG 292 ==
LOC: ED 23:19 → 2S 03-06 01:39

== ENCOUNTER 2022-03-14 22:15 | Inpatient (IN) ==
[2022-03-14 23:18] LABS: Basophils # (auto) 0.04 K/uL (0-0.2); Basophils % (auto) 0.4 %; Eosinophils # (auto) 0.21 K/uL (0-0.50); Eosinophils % (auto) 2.3 %; Hematocrit (blood only) 35.4 % (34.1-44.9); Hemoglobin 11.1 g/dl (12.0-16.0); Immature Granulocytes # (auto) 0.03 K/uL (0.00-0.02); Immature Granulocytes % (auto) 0.3 %; Lymphocytes # (auto) 2.45 K/uL (1.2-3.4); Lymphocytes % (auto) 26.3 %; Mean Corpuscular Hemoglobin 25.5 pg (25.0-34.0); Mean Corpuscular Hgb Conc 31.4 g/dL (32.0-36.0); Mean Corpuscular Volume 81.4 fL (80.0-100.0); Mean Platelet Volume 10.1 fL (9.4-12.3); Monocytes # (auto) 0.52 K/uL (0.24-0.82); Monocytes % (auto) 5.6 %; Neutrophils # (auto) 6.07 K/uL (1.4-6.5); Neutrophils % (auto) 65.1 %; Platelet Count 292 K/uL (130-400); RDW Coefficient of Variation 21.6 % (11.5-14.5); RDW Standard Deviation 61.9 fL (36.4-46.3); Red Blood Count 4.35 M/uL (3.93-5.22); White Blood Count 9.32 K/ul (4.8-10.8)
[2022-03-14] MEDS ORDERED: ONDANSETRON INJ 2 MG/ML 2 ML VIAL IV STA (23:32)
[2022-03-14] MEDS ORDERED: fentaNYL citrate 100 MCG/2 ML VIAL IV STA (23:32)
[2022-03-14] MEDS ORDERED: METOPROLOL TARTRATE 1 MG/ML VIAL IV STA (23:32)
[2022-03-14 23:33] LABS: INR 0.9 (0.9-1.1); Partial Thromboplastin Time 26.6 Seconds (21.0-31.0); Prothrombin Time 9.9 Seconds (9.0-12.0)
[2022-03-14 23:42] LABS: Albumin Globulin Ratio 1.3 (0.9-2); Albumin Level 4.3 gm/dl (3.4-5.0); BUN Creatinine Ratio 6.1 (10-20); Bilirubin,Total 0.4 mg/dl (0.2-1.0); Calcium 8.9 mg/dl (8.5-10.1); Creatinine Clr Calc Pharmacy 111.1 ml/min; Est GFR (Non-African American) 88.9 ml/min; Globulin 3.2 gm/dl (2.5-4.0); Total Protein 7.5 gm/dl (6.0-8.3)
[2022-03-14 23:46] LABS: RBC Morphology Unremarkable
[2022-03-15 00:22] LABS: Potassium 3.8 mmol/L (3.5-5.1)
--- NOTE | 2022-03-15 00:58 | Emergency Department Note ---
Impression & Plan Left-sided chest pain Admit to the [facility] ED Provider Note NAME: KAROLYN PINEDA AGE: 41 SEX: F ARRIVES VIA: Walk-In INFORMANT: Patient and her ED PROVIDER(S): Alida Castillo DO CHIEF COMPLAINT: Pain PLAN: Disposition: Admit to the [facility] Condition: Fair MEDICAL DECISION MAKING: This is a 41-year-old female patient who presents to the emergency department with left-sided chest pain, left arm pain and back pain. The patient had a normal-appearing EKG and negative high-sensitivity troponin. Had recently been admitted to the hospital with similar complaints associated with shortness of breath. At that time, she was diagnosed with CHF and iron deficiency anemia. Patient was evaluated by cardiology and discharged home to follow-up with them. Presentation here today she was hypertensive, tachycardic, and complaining of chest pain. Concerned about the patient's chest discomfort. She was medicated here with IV analgesia which did relieve some of her discomfort. I discussed the case with the [facility] and they will evaluate for further management. Triage Nursing notes reviewed and agree with them. Prior medical records reviewed and her recent hospitalization for diastolic heart failure Vital Signs: reviewed and remarkable for hypertension and tachycardia Differential diagnosis: GERD, STEMI, NSTEMI, anxiety, CHF, pneumonia, pleurisy ER treatment provided: IV Lopressor IV Dilaudid IV fentanyl x2 IV Zofran x2 IV Ativan Diagnostics interpreted by me: ECG: Sinus tachycardia at 114; ST segment elevation or signs of ischemia. No Ectopy. Cardiac Monitoring: Sinus tachycardia at 102 Laboratory studies: See below Imaging studies: Per my interpretation Chest x-ray: No acute pulmonary infiltrates or consolidations. HPI: 41/F arrives for evaluation of chest pain. The patient has had increasing left-sided chest pain over the past 36 hours. The pain seems to radiate to her left arm and through to her back. There was some associated nausea. The patient took 4 baby aspirin last evening. She has since developed epigastric pain. ROS: See above HPI for pertinent positives & negatives. A total of 10 systems reviewed and were otherwise negative. PAST MEDICAL HISTORY:See Below PAST SURGICAL HISTORY:See Below FAMILY HISTORY:See Below SOCIAL HISTORY:See Below HOME MEDICATIONS:See list ALLERGIES:See list VITALS:See Below PHYSICAL EXAMINATION: HEENT: Head - normocephalic and atraumatic. Pupils are equal, round, and reactive to light. Extraocular eye muscles are intact, and sclera are anicteric. Nose - moist nasal mucosa without discharge. Mouth - moist buccal mucosa. Oropharynx is nonerythematous and there is no tonsillar exudate or edema noted. Neck: Supple; no JVD or cervical lymphadenopathy Heart: Regular rate and rhythm. There is a normal S1 and S2 with no murmurs, c licks, or gallops appreciated. Lungs: Clear to auscultation bilaterally with no wheezes, rales, or rhonchi. Abdomen: Soft, completely nontender, nondistended, with good bowel sounds. There are no palpable pulsatile masses or hepatosplenomegaly. There is no guarding, rigidity, or rebound noted. Extremities: No evidence of cyanosis, clubbing, or edema. There are easily palpable peripheral pulses. Skin: warm and dry with good turgor and no rashes. ED COURSE: Times/Reassessments: 2305: The patient was evaluated in room A10. History and physical was performed. An IV lock was initiated and labs were drawn as above. A twelve-lead EKG was obtained as described above. An order was placed for continuous cardiac monitoring. The patient was in a sinus tachycardia at 102. She was both tachycardic and hypertensive upon my evaluation and was given a dose of IV Lopressor. Patient was given a dose of IV fentanyl and IV Zofran for the pain and nausea. Patient had a chest x-ray which was unremarkable. The chest discomfort persisted and she was given a second dose of IV fentanyl. The patient was not any much improvement in her symptoms so she was given a dose of IV Dilaudid. This allowed her to rest for period of time. I reviewed the laboratory studies and x-ray with the patient and her . I had taken some time to review the chart from her recent admission. I felt the patient will require readmission to the hospital for further cardiology work-up and possible cardiac cath. The patient became somewhat anxious and was given a dose of IV Ativan. Alida Castillo DO Past Med/Surg History Medical History Barretts esophagus Chronic neck pain Deafness in right ear Degenerative disc disease Depression Gastroesophageal reflux disease Gastroparesis High blood pressure History of bronchitis inhaler prn Hypothyroidism Hypothyroidism Insulin resistance Migraine Obesity Polycystic ovaries Surgical History H/O sinus surgery x2--recent on 08/2019 History of colonoscopy History of esophagogastroduodenoscopy (EGD) History of eye surgery x2 on right History of tooth extraction History of wisdom tooth extraction S/P cholecystectomy Family History Mother Family history of reaction to anesthesia after 2 hours afer breast cancer sx "her lungs started filling up with fluid" per pt was told it was d/t anesthesia Breast cancer Environmental allergies Heart disease Hypertension Grandfather (Paternal) Family history of diabetes mellitus Father Cancer Grandfather Cancer Other Diabetes Lung disease No family history of bleeding disorder Seizure Social History Smoking Status: Never smoker Second Hand Exposure: No; Do You Dip or Chew Tobacco: No; Tobacco Cessation Education Requested by Patient: No Hx Alcohol Use: Yes Alcohol type: wine Alcohol Intake Frequency Comment: 2x per year Hx Substance Use: No Preferred Language: Guinean 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 Ability: Effective 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 Beliefs That Will Affect Care: None marital status: Current Living Situation: Spouse current occupational status: disabled Other Information That Helps Us Care for You: No Feels Safe at Home: Yes Safety Concerns: Feels Safe At This Time Assistive Devices: None Allergies Allergies Allergy/AdvReac Type Severity Reaction Status Date / Time morphine Allergy Severe Hives,itchiness,nausea Verified 03/06/22 00:06 and vomiting topiramate Allergy Severe neurological Verified 03/06/22 00:06 symptoms cephalexin Allergy Mild rash Verified 03/06/22 00:06 nickel Allergy Redness of Verified 03/15/22 06:16 Skin Home Meds Home Medications Medication Instructions Recorded Confirmed baclofen 20 mg tablet 5 mg PO BID PRN Headache/Neck Pain 06/06/18 03/15/22 duloxetine 30 mg capsule,delayed 120 mg PO DAILY 06/06/18 03/15/22 release folic acid 400 mcg tablet 400 mcg PO HS 06/06/18 03/15/22 levothyroxine 50 mcg tablet 50 mcg PO QAM 06/06/18 03/15/22 memantine 10 mg tablet 10 mg PO BIDM 06/06/18 03/15/22 pantoprazole 40 mg tablet,delayed 40 mg PO BID 06/06/18 03/15/22 release promethazine 25 mg tablet 25 mg PO Q6H PRN Nausea 06/06/18 03/15/22 tizanidine 4 mg tablet 4 - 8 mg PO HS 06/06/18 03/15/22 trazodone 50 mg tablet 100 mg PO HS PRN Sleep 06/06/18 03/15/22 zolmitriptan 5 mg tablet 2.5 - 5 mg PO BID PRN Migraine 06/06/18 03/15/22 Headache cetirizine 10 mg tablet 10 mg PO QAM 02/17/19 03/15/22 magnesium gluconate 27 mg 125 mg PO HS 05/19/19 03/15/22 magnesium (500 mg) tablet (Mag-G) galcanezumab-gnlm 120 mg/mL 120 mg subcut MONTHLY 08/03/19 03/15/22 subcutaneous pen injector (Emgality Pen) diphenoxylate-atropine 2.5 1 tab PO QID PRN Diarrhea 02/18/20 03/15/22 mg-0.025 mg tablet hydroxyzine HCl 25 mg tablet 25 mg PO QAM 02/18/20 03/15/22 multivitamin with minerals 1 tab PO HS 09/10/20 03/15/22 desipramine 25 mg tablet 25 mg PO DAILY 11/13/20 03/15/22 gabapentin 300 mg capsule See Rx Instructions .Route .COMPLEX 11/13/20 03/15/22 pindolol 5 mg tablet 5 mg PO BID 11/13/20 03/15/22 dicyclomine 20 mg tablet 20 mg PO QID PRN Abdominal 11/14/20 03/15/22 Discomfort ergocalciferol (vitamin D2) 1,250 1,250 mcg PO WK 11/14/20 03/15/22 mcg (50,000 unit) capsule (Vitamin D2) lorazepam 0.5 mg tablet 1 mg PO UD PRN procedures/panic 11/14/20 03/15/22 rimegepant 75 mg disintegrating 75 mg PO UD PRN Headache 08/01/21 03/15/22 tablet (Nurtec ODT) lidocaine 5 % topical patch 1 patch topical DAILY PRN Pain 10/29/21 03/15/22 (Lidoderm) tramadol 50 mg tablet 50 mg PO Q6 PRN Pain 10/29/21 03/15/22 Previous Rx's Medication Instructions Recorded furosemide 40 mg tablet 40 mg PO QAM #30 tabs 03/08/22 potassium chloride 20 mEq 20 meq PO QAM #30 tabs 03/08/22 tablet,extended release(part/cryst) Results & Data (ED) Vital Signs Vital Signs - 24 hr 03/14/22 22:23 03/14/22 22:33 03/14/22 22:34 Temperature 36.8 C Temperature Source Oral Pulse Rate 74 Pulse Rate [Apical] 116 H Pulse Rate from SpO2 Sensor Respiratory Rate 19 20 Respiratory Effort / Characteristics Non-Labored Blood Pressure 138/97 Blood Pressure [Left Arm] 154/100 H Blood Pressure Mean 110 Blood Pressure Mean [Left Arm] 118 Pulse Oximetry 96 96 96 Oxygen Delivery Method Room Air Room Air Room Air Sepsis Recent Fever Within 48 Hours No Sepsis New/Unexplained Change in Mental Status No Sepsis Action Taken by Nursing No Action Required 03/14/22 23:00 03/15/22 00:01 03/14/22 23:30 Temperature Temperature Source Pulse Rate 114 H 110 H 115 H Pulse Rate [Apical] Pulse Rate from SpO2 Sensor 114 H 115 H Respiratory Rate 21 20 Respiratory Effort / Characteristics Blood Pressure 150/101 H 143/100 H Blood Pressure [Left Arm] Blood Pressure Mean 114 Blood Pressure Mean [Left Arm] Pulse Oximetry 95 97 Oxygen Delivery Method Room Air Room Air Sepsis Recent Fever Within 48 Hours Sepsis New/Unexplained Change in Mental Status Sepsis Action Taken by Nursing 03/14/22 23:45 03/15/22 00:07 03/15/22 00:10 Temperature Temperature Source Pulse Rate 111 H 93 H 98 H Pulse Rate [Apical] Pulse Rate from SpO2 Sensor 112 H 93 H 97 H Respiratory Rate 24 21 23 Respiratory Effort / Characteristics Blood Pressure 150/101 H 134/101 H 147/107 H Blood Pressure [Left Arm] Blood Pressure Mean 117 112 120 Blood Pressure Mean [Left Arm] Pulse Oximetry 96 94 95 Oxygen Delivery Method Room Air Room Air Room Air Sepsis Recent Fever Within 48 Hours Sepsis New/Unexplained Change in Mental Status Sepsis Action Taken by Nursing 03/15/22 00:20 03/15/22 00:30 03/15/22 00:40 Temperature Temperature Source Pulse Rate 91 H 89 91 H Pulse Rate [Apical] Pulse Rate from SpO2 Sensor 91 H 91 H 91 H Respiratory Rate 22 22 23 Respiratory Effort / Characteristics Blood Pressure 153/103 H 156/101 H 160/99 H Blood Pressure [Left Arm] Blood Pressure Mean 119 119 119 Blood Pressure Mean [Left Arm] Pulse Oximetry 94 93 96 Oxygen Delivery Method Room Air Room Air Room Air Sepsis Recent Fever Within 48 Hours Sepsis New/Unexplained Change in Mental Status Sepsis Action Taken by Nursing 03/15/22 01:00 03/15/22 01:30 03/15/22 02:00 Temperature Temperature Source Pulse Rate 92 H 94 H 91 H Pulse Rate [Apical] Pulse Rate from SpO2 Sensor 93 H 97 H 92 H Respiratory Rate 24 23 24 Respiratory Effort / Characteristics Blood Pressure 143/100 H 151/93 H 134/99 Blood Pressure [Left Arm] Blood Pressure Mean 114 112 110 Blood Pressure Mean [Left Arm] Pulse Oximetry 96 95 95 Oxygen Delivery Method Room Air Room Air Room Air Sepsis Recent Fever Within 48 Hours Sepsis New/Unexplained Change in Mental Status Sepsis Action Taken by Nursing 03/15/22 02:31 03/15/22 03:00 03/15/22 03:30 Temperature Temperature Source Pulse Rate 86 96 H 101 H Pulse Rate [Apical] Pulse Rate from SpO2 Sensor 86 94 H 100 H Respiratory Rate 17 18 18 Respiratory Effort / Characteristics Blood Pressure 159/108 H 143/97 H 150/93 H Blood Pressure [Left Arm] Blood Pressure Mean 125 112 112 Blood Pressure Mean [Left Arm] Pulse Oximetry 95 92 93 Oxygen Delivery Method Room Air Room Air Room Air Sepsis Recent Fever Within 48 Hours Sepsis New/Unexplained Change in Mental Status Sepsis Action Taken by Nursing 03/15/22 04:00 03/15/22 04:00 03/15/22 04:30 Temperature Temperature Source Pulse Rate 99 H Pulse Rate [Apical] Pulse Rate from SpO2 Sensor 99 H Respiratory Rate 21 Respiratory Effort / Characteristics Blood Pressure 130/96 149/99 H Blood Pressure [Left Arm] Blood Pressure Mean 107 115 Blood Pressure Mean [Left Arm] Pulse Oximetry 94 Oxygen Delivery Method Sepsis Recent Fever Within 48 Hours Sepsis New/Unexplained Change in Mental Status Sepsis Action Taken by Nursing 03/15/22 04:30 Temperature Temperature Source Pulse Rate 93 H Pulse Rate [Apical] Pulse Rate from SpO2 Sensor 94 H Respiratory Rate Respiratory Effort / Characteristics Blood Pressure Blood Pressure [Left Arm] Blood Pressure Mean Blood Pressure Mean [Left Arm] Pulse Oximetry 93 Oxygen Delivery Method Sepsis Recent Fever Within 48 Hours Sepsis New/Unexplained Change in Mental Status Sepsis Action Taken by Nursing Laboratory Data Result diagrams: 03/14/22 22:37 03/14/22 22:37 Lab Results 03/14/22 03/14/22 03/14/22 Range/Units 22:37 22:37 22:37 WBC 9.32 (4.8-10.8) K/ul RBC 4.35 (3.93-5.22) M/uL Hgb 11.1 L (12.0-16.0) g/dl Hct 35.4 (34.1-44.9) % MCV 81.4 (80.0-100.0) fL MCH 25.5 (25.0-34.0) pg MCHC 31.4 L (32.0-36.0) g/dL RDW Std Deviation 61.9 H (36.4-46.3) fL RDW Coeff of Cameron 21.6 H (11.5-14.5) % Plt Count 292 (130-400) K/uL MPV 10.1 (9.4-12.3) fL Immature Gran % (Auto) 0.3 % Neut % (Auto) 65.1 % Lymph % (Auto) 26.3 % [place] % (Auto) 5.6 % Eos % (Auto) 2.3 % Baso % (Auto) 0.4 % Neut # (Auto) 6.07 (1.4-6.5) K/uL Lymph # (Auto) 2.45 (1.2-3.4) K/uL [place] # (Auto) 0.52 (0.24-0.82) K/uL Eos # (Auto) 0.21 (0-0.50) K/uL Baso # (Auto) 0.04 (0-0.2) K/uL Immature Gran # (Auto) 0.03 H (0.00-0.02) K/uL RBC Morphology Unremarkable PT 9.9 (9.0-12.0) Seconds INR 0.9 (0.9-1.1) APTT 26.6 (21.0-31.0) Seconds PTT Ratio 1.0 Sodium 139 (136-145) mmol/L Potassium 3.8 (3.5-5.1) mmol/L Chloride 108 H (98-107) mmol/L Carbon Dioxide 20 L (21-32) mmol/L Anion Gap 11 (3-11) BUN 5 L (6-23) mg/dl Creatinine 0.82 (0.6-1.2) mg/dl Est Cr Clr Drug Dosing 111.1 ml/min Est GFR ( Amer) 103.0 ml/min Est GFR (Non-Af Amer) 88.9 ml/min BUN/Creatinine Ratio 6.1 L (10-20) Glucose 122 H (70-99(Fasting)) mg/dl Calcium 8.9 (8.5-10.1) mg/dl Total Bilirubin 0.4 (0.2-1.0) mg/dl AST 18 (13-39) U/L ALT 17 (7-52) U/L Alkaline Phosphatase 78 (34-104) U/L Troponin I High Sens 5.0 D (0-14) pg/ml Total Protein 7.5 (6.0-8.3) gm/dl Albumin 4.3 (3.4-5.0) gm/dl Globulin 3.2 (2.5-4.0) gm/dl Albumin/Globulin Ratio 1.3 (0.9-2) SARS-CoV-2, RNA, NAAT (NEGATIVE) 03/15/22 Range/Units 02:41 WBC (4.8-10.8) K/ul RBC (3.93-5.22) M/uL Hgb (12.0-16.0) g/dl Hct (34.1-44.9) % MCV (80.0-100.0) fL MCH (25.0-34.0) pg MCHC (32.0-36.0) g/dL RDW Std Deviation (36.4-46.3) fL RDW Coeff of Cameron (11.5-14.5) % Plt Count (130-400) K/uL MPV (9.4-12.3) fL Immature Gran % (Auto) % Neut % (Auto) % Lymph % (Auto) % [place] % (Auto) % Eos % (Auto) % Baso % (Auto) % Neut # (Auto) (1.4-6.5) K/uL Lymph # (Auto) (1.2-3.4) K/uL [place] # (Auto) (0.24-0.82) K/uL Eos # (Auto) (0-0.50) K/uL Baso # (Auto) (0-0.2) K/uL Immature Gran # (Auto) (0.00-0.02) K/uL RBC Morphology PT (9.0-12.0) Seconds INR (0.9-1.1) APTT (21.0-31.0) Seconds PTT Ratio Sodium (136-145) mmol/L Potassium (3.5-5.1) mmol/L Chloride (98-107) mmol/L Carbon Dioxide (21-32) mmol/L Anion Gap (3-11) BUN (6-23) mg/dl Creatinine (0.6-1.2) mg/dl Est Cr Clr Drug Dosing ml/min Est GFR ( Amer) ml/min Est GFR (Non-Af Amer) ml/min BUN/Creatinine Ratio (10-20) Glucose (70-99(Fasting)) mg/dl Calcium (8.5-10.1) mg/dl Total Bilirubin (0.2-1.0) mg/dl AST (13-39) U/L ALT (7-52) U/L Alkaline Phosphatase (34-104) U/L Troponin I High Sens (0-14) pg/ml Total Protein (6.0-8.3) gm/dl Albumin (3.4-5.0) gm/dl Globulin (2.5-4.0) gm/dl Albumin/Globulin Ratio (0.9-2) SARS-CoV-2, RNA, NAAT NEGATIVE (NEGATIVE) Administered Medications Hydromorphone HCl (Hydromorphone Inj 0.5 Mg/0.5 Ml Syr) 0.25 mg IV Q3H PRN PRN Reason: Severe Pain Stop: 03/29/22 06:26 Last Admin: 03/15/22 07:26 Dose: 0.25 mg Documented By: ISAIAS Levothyroxine Sodium (Levothyroxine Sodium 50 Mcg Tablet) 50 mcg PO DAILYBB ALVAREZ Stop: 04/14/22 06:29 Last Admin: 03/15/22 07:20 Dose: 50 mcg Documented By: ISAIAS Discontinued Medications Fentanyl Citrate (Fentanyl Citrate 100 Mcg/2 Ml Vial) 50 mcg IV NOW STA Stop: 03/14/22 23:33 Last Admin: 03/14/22 23:59 Dose: 50 mcg Documented By: ARON Fentanyl Citrate (Fentanyl Citrate 100 Mcg/2 Ml Vial) 100 mcg IV NOW STA Stop: 03/15/22 01:11 Last Admin: 03/15/22 01:26 Dose: 100 mcg Documented By: RAON Hydromorphone HCl (Hydromorphone Inj 1 Mg/Ml Syringe) 1 mg IV NOW STA Stop: 03/15/22 02:48 Last Admin: 03/15/22 02:55 Dose: 1 mg Documented By: NICA Lorazepam (Lorazepam 2 Mg/1 Ml Vial) 1 mg IV NOW STA; Protocol Stop: 03/15/22 04:06 Last Admin: 03/15/22 04:10 Dose: 1 mg Documented By: NICA Metoprolol Tartrate (Metoprolol Tartrate 1 Mg/Ml Vial) 5 mg IV NOW STA Stop: 03/14/22 23:33 Last Admin: 03/15/22 00:01 Dose: 5 mg Documented By: ARON Ondansetron HCl (Ondansetron Inj 2 Mg/Ml 2 Ml Vial) 4 mg IV NOW STA Stop: 03/14/22 23:33 Last Admin: 03/14/22 23:58 Dose: 4 mg Documented By: ARON Ondansetron HCl (Ondansetron Inj 2 Mg/Ml 2 Ml Vial) 4 mg IV NOW STA Stop: 03/15/22 04:06 Last Admin: 03/15/22 04:10 Dose: 4 mg Documented By: NICA Imaging Data Radiologist's Impression: Chest X-Ray 03/14/22 22:56 XR chest 1V portable CLINICAL HISTORY: Chest Pain. COMPARISON STUDY: 03/05/2022 TECHNIQUE: 1 view of the chest FINDINGS: Single frontal view of the chest demonstrates the cardiomediastinal silhouette to be within normal limits. There is a decreased inspiratory effort with elevation of the hemidiaphragms and crowding of the bronchovascular markings at the lung bases and centrally. The lungs are clear of alveolar opacities. There is no evidence for pleural effusion. There is no evidence for vascular congestion. There is no acute osseous pathology. IMPRESSION: 1. There is a decreased inspiratory effort with otherwise no acute chest disease. ACT 112: Negative or not required by law. Electronically signed by: Ulysses Haro M.D. 03/15/2022 7:22 AM Discharge Plan Visit Data Chief Complaint: Chest Pain Stated Complaint: CHEST PAINS ED Provider: Alida Castillo Discharge Problem: Left-sided chest pain Patient Disposition: Admitted As Inpatient Discharge Instructions Interventions: ED Discharge Assessment Last Done: 03/15/22 05:23
[2022-03-15] MEDS ORDERED: fentaNYL citrate 100 MCG/2 ML VIAL IV STA (01:10)
[2022-03-15] MEDS ORDERED: HYDROmorphone INJ 1 MG/ML SYRINGE IV STA (02:47)
[2022-03-15] MEDS ORDERED: ONDANSETRON INJ 2 MG/ML 2 ML VIAL IV STA (04:05)
[2022-03-15] MEDS ORDERED: LORazepam 2 MG/1 ML VIAL IV STA (04:05)
[2022-03-15] MEDS ORDERED: ONDANSETRON INJ 2 MG/ML 2 ML VIAL IV PRN (05:40)
[2022-03-15] MEDS ORDERED: PROMETHAZINE HCL 25 MG TAB PO PRN (05:40)
[2022-03-15] MEDS ORDERED: DIPHENOXYLATE/ATROPINE 2.5/0.025MG TAB PO PRN (05:40)
[2022-03-15] MEDS ORDERED: ZOLMITRIPTAN 5 MG PO PRN (05:40)
[2022-03-15] MEDS ORDERED: LORazepam 1 MG TAB PO PRN (05:40)
[2022-03-15] MEDS ORDERED: BACLOFEN 10 MG TAB PO PRN (05:40)
[2022-03-15] MEDS ORDERED: NITROGLYCERIN SL 0.4 MG/TAB TAB SL PRN (05:40)
[2022-03-15] MEDS ORDERED: DICYCLOMINE HCL 20 MG TAB PO PRN (05:40)
[2022-03-15] MEDS ORDERED: traMADol HCL 50 MG TABLET PO PRN (05:40)
[2022-03-15] MEDS ORDERED: ACETAMINOPHEN 325 MG TAB PO PRN (05:40)
[2022-03-15] MEDS: LEVOTHYROXINE SODIUM 50 MCG TABLET PO SCH (07:20)
--- NOTE | 2022-03-15 07:24 | XRay Report ---
XR chest 1V portable CLINICAL HISTORY: Chest Pain. COMPARISON STUDY: 03/05/2022 TECHNIQUE: 1 view of the chest FINDINGS: Single frontal view of the chest demonstrates the cardiomediastinal silhouette to be within normal li mits. There is a decreased inspiratory effort with elevation of the hemidiaphragms and crowding of th e bronchovascular markings at the lung bases and centrally. The lungs are clear of alveolar opacities . There is no evidence for pleural effusion. There is no evidence for vascular congestion. There is n o acute osseous pathology. IMPRESSION: 1. There is a decreased inspiratory effort with otherwise no acute chest disease. ACT 112: Negative or not required by law. Electronically signed by: Ulysses Haro M.D. 03/15/2022 7:22 AM
[2022-03-15] MEDS: HYDROmorphone INJ 0.5 MG/0.5 ML SYR IV PRN ×3 (07:26→22:42)
[2022-03-15] MEDS: PANTOprazole 40 MG TAB PO SCH ×2 (08:04→22:41)
[2022-03-15] MEDS: hydrOXYzine HCl 25 MG TAB PO SCH (08:04)
[2022-03-15] MEDS: FUROSEMIDE 40 MG TAB PO SCH (08:04)
[2022-03-15] MEDS: CETIRIZINE HCL 10 MG TABLET PO SCH (08:04)
[2022-03-15] MEDS: DULoxetine HCL 60 MG CAP PO SCH (08:04)
[2022-03-15] MEDS: ASPIRIN 81 MG ECTAB PO SCH (08:04)
[2022-03-15] MEDS: DESIPRAMINE HCL 25 MG TAB PO SCH (08:05)
[2022-03-15] MEDS: GABAPENTIN 300 MG CAP PO SCH ×2 (08:06→13:33)
[2022-03-15] MEDS ORDERED: LIDOCAINE 5% 1 PATCH TD PRN (09:00)
[2022-03-15] MEDS ORDERED: POTASSIUM CHLORIDE CRTAB 20 MEQ TABCR PO SCH (09:00)
[2022-03-15 10:05] LABS: D Dimer 920 ug/L FEU (0-500)
--- NOTE | 2022-03-15 10:15 | History and Physical Report ---
DATE OF ADMISSION: 03/15/2022. CHIEF COMPLAINT: Chest pain. HISTORY OF PRESENT ILLNESS: A 41-year-old female with past medical history significant for chronic migraines on Namenda, mood disorder, polycystic ovarian syndrome, insulin resistance as per record, hypothyroidism, gastroparesis, history of history syringomyelia , hemorrhoids, status post surgery, chronic anemia, baseline hemoglobin around 10, nocturnal hypoxia as per records, presents with chest pain. The patient was recently in the hospital in first week of March with acute diastolic CHF, after receiving prednisone for poison gabi, improved with IV diuretics. She also received 3 doses of IV Venofer for iron deficiency anemia. Echo showed grade 1 diastolic dysfunction, no significant valvular pathology and today, the patient comes with chest pain. The patient stated starting yesterday night, she had chest pain. She took 4 baby aspirins and was able to sleep, but since the morning, a nagging chest pain was present that is not getting better, in the middle of the chest, moderate sharp pain, sometimes radiating to the left shoulder and left arm and fingers, which prompted her to come to the ER. Any ambulation making the pain worse. Denies any shortness of breath, has mild dizziness. No nausea, no sweating, no cough, no fevers, no blurred visions, no earache, no runny nose, no sore throat. No abdominal pain. She has alternating diarrhea and constipation, no blood in the stools. Normal bladder movements. No swelling in the legs. Currently, resting comfortably and hemodynamically stable. ALLERGIES: MORPHINE, TOPIRAMATE, CEPHALEXIN. PAST MEDICAL HISTORY: As mentioned above. PAST SURGICAL HISTORY: Anorectal exam, colonoscopy, EGD, hemorrhoidectomy, proctosigmoidoscopy cholecystectomy, strabismus surgery, sinus surgery, left ultrasound-guided breast biopsy. MEDICATIONS: The patient is on baclofen 5 mg p.o. b.i.d. p.r.n., cetirizine 10 mg p.o. a.m., desipramine 25 mg p.o. daily, dicyclomine 20 mg p.o. q.i.d. p.r.n., Lomotil 1 tablet p.o. q.i.d. p.r.n., glucosamine 120 mg p.o. daily, Emgality Pen 120 mg subcutaneous monthly, vitamin D 1250 mcg p.o. weekly, folic acid 400 mg p.o. at bedtime, furosemide 40 mg p.o. a.m.,gabapentin as directed, hydroxyzine 25 mg p.o. a.m., levothyroxine 50 mcg p.o. a.m., lidocaine 1 patch topical daily p.r.n., lorazepam 1 mg p.r.n., magnesium gluconate 125 mg p.o. at bedtime, memantine 10 mg p.o. b.i.d., multivitamin with minerals 1 tablet p.o. at bedtime, Protonix 40 mg p.o. b.i.d., pindolol 5 mg p.o. b.i.d., potassium chloride 20 mEq p.o. a.m., promethazine 25 mg p.o. q. 6 hours p.r.n., tizanidine 4 mg p.o. at bedtime, tramadol 50 mg p.o. q. 6 hours p.r.n. zolpidem 5 mg p.o. b.i.d. p.r.n. FAMILY HISTORY: Significant for brother has alcoholism, mother has alcoholism, allergies, arthritis, breast cancer, heart disorder, hypertension, thyroid disorder; father has cancer, paternal grandmother had colon cancer, maternal grandfather diabetes, maternal grandmother has hypertension, thyroid disorder. SOCIAL HISTORY: , no smoking history. No alcohol, no drug use. REVIEW OF SYSTEMS: As per HPI. Rest of review of systems is negative. PHYSICAL EXAMINATION: GENERAL: The patient is obese, not in acute distress. VITAL SIGNS: Temperature 36.8, pulse 104, respiratory rate 18, blood pressure 150/93, oxygen 98% on room air. HEENT: Pupils equal, round and reactive to light. Oral mucosa moist. NECK: No JVD. No neck masses. CARDIOVASCULAR: S1 and S2 heard. Regular rate and rhythm. No murmur, no gallop. RESPIRATORY SYSTEM: Normal AP diameter. No accessory muscle use. No wheezing, no crackles. ABDOMEN: Soft, bowel sounds present, nontender, no distention. CENTRAL NERVOUS SYSTEM: Cranial nerves II-XII grossly intact, nonfocal. EXTREMITIES: No edema, no erythema. LABORATORY DATA: WBC 9.3, hemoglobin 11.1, hematocrit 25.4, platelets 292. PT 9.9, INR 0.9, APTT 26.6. Sodium 139, potassium 3.8, chloride 108, bicarbonate 20, BUN 5, creatinine 0.8, serum glucose 122, calcium 8.9, total bilirubin 0.4, AST of 18, ALT 17, alkaline phosphatase 78. Troponin I high sensitivity 5. SARS-CoV-2 rapid test negative. IMAGING DATA: Chest x-ray, no acute findings. EKG: Sinus tachycardia with rate of 114. Left anterior fascicular block, no significant change was found. ASSESSMENT AND PLAN: This is a 41-year-old female who presents with chest pain. 1. Chest pain: Rule out acute coronary syndrome. Risk factor of obesity, diastolic congestive heart failure. We will follow the serial cardiac enzymes, echo, n.p.o. and consult cardiology and monitor in the tele floor. 2 Chronic . Diastolic congestive heart failure: Continue home Lasix. 3. Iron deficiency anemia: Follow the labs. Status post IV Venofer x3 last admission. 4. Hypothyroidism: On Synthroid. 5. History of gastroparesis and irritable bowel syndrome? Follow up with GI. 6. History of depression, panic attacks: Continue her home medications. 7. Migraine: Continue her home medications. 8. Deep venous thrombosis prophylaxis: Sequential compression devices for now. DISPOSITION: Admit to tele floor. Expect to discharge home and follow with family doctor. Level 1 full code. Job ID: [id number] MTDD
[2022-03-15] MEDS: METOPROLOL TARTRATE 50 MG TAB PO SCH ×2 (11:27→22:41)
--- NOTE | 2022-03-15 11:52 | Cardiology Consultation ---
Date of Consultation March 15, 2022 Assessment & Plan (1) Chest pain: (2) Hypertension: (3) Elevated d-dimer: Plan Patient admitted after several days of recurrent chest pain. HS troponin negative x2. She had echo last week which was unremarkable when she presented with multifact orial volume overload secondary to prednisone use. Symptoms improved with diruretics. Her BP has been uncontrolled since admission. HR also elevated since admission. Strong situational component with significant anxiety noted. Continue metoprolol tartrate 50 mg BID as HR has trended down with therapy. Continue furosemide. Change potassium supplement to spironolactone 12.5 mg daily to aid with hypertension. Due to elevated D.Dimer Chest CT has also been ordered to r/o PE. Further recommendations pending review of additional test results and response to medication therapies. Case discussed with Dr. Zhou. Supervising Physician Co-Signing Physician Notes Patient seen examined the bedside. Describes sharp stabbing chest discomfort over several days. Pain nearly constant at times. No radiation. D-dimer elevated on admission prompting CTA. No evidence of pulmonary embolus. Currently pain-free. Sinus rhythm on telemetry. PE: GEN: NAD, AAO x3. Heart: Regular rhythm, normal S1-S2. No murmur. Lungs: Clear bilateral, no rales, rhonchi, wheeze. Extremities: No edema. A/P: Agree with above PA-C history, physical exam, assessment and plan. Patient admitted with atypical chest discomfort. Her cardiac enzymes are undetectable. ECG without ischemic changes. Elevated D-dimer prompting CTA which demonstrated no evidence of pulmonary embolus. Agree with addition of low-dose Aldactone to improve blood pressure control in the setting of hypokalemia. Results of cardiac testing and recommendations discussed with patient at bedside. No further testing recommended at this time. Cardiology will sign off. Please call with questions. History of Present Illness Reason for Consultation: CP Requesting Physician: Dr. Muñiz Attending Physician: Dr. Zhou History of Present Illness Patient is a 41 year old female with history significant for depression/anxiety, panic attacks, iron deficiency anemia, insulin resistance, chronic migraines, chronic back pain and neck pain, hypothyroidism, borderline hypertension. She presented to [facility] yesterday with complaints of severe sharp/stabbing chest pain located in the center of her chest. No aggravating or alleviating factors. EKG demonstrated sinus tachycardia without acute changes. High sensitivity troponin negative x2. She was admitted to [facility] last week with multifactorial volume overload after taking prednisone for poison gabi. She is also on high-dose gabapentin. She had developed worsening lower extremity edema associated 15 pound weight gain. She was evaluated by cardiology due to minimally elevated troponin. He was started on IV diuretics with improvement in her symptoms. She was discharged on furosemide and potassium supplementation. Echo at that time demonstrated preserved LV systolic function without significant valvular heart disease. She reports her chest pain has been constant for several days. She reports significant anxiety. She denies worsening symptoms with positional changes or deep breaths. She takes pindolol at home at times for anxiey and palpitations. HR was elevated on arrival. D.Dimer was elevated this morning. Her BP has been elevated since admission. She was started on metoprolol tartrate to aid HR. Trending down. She is currently crying upon evaluation this morning. REpeat EKG ordered. chest CT ordered to r/o PE given elevated d.dimer. She notes ongoing sharp/stabbing pain. Despite ongong symptoms her enzymes are unremarkable. She is very anxious. She reports edema has resolved. Weight is down from last visit. No orhtopnea, PND. No fever, cough, chills. Allergies Allergy/AdvReac Type Severity Reaction Status Date / Time morphine Allergy Severe Hives,itchiness,nausea Verified 03/06/22 00:06 and vomiting topiramate Allergy Severe neurological Verified 03/06/22 00:06 symptoms cephalexin Allergy Mild rash Verified 03/06/22 00:06 nickel Allergy Redness of Verified 03/15/22 06:16 Skin Home Medications Medication Instructions Recorded Confirmed Type baclofen 20 mg tablet 5 mg PO BID PRN Headache/Neck Pain 06/06/18 03/15/22 History duloxetine 30 mg capsule,delayed 120 mg PO DAILY 06/06/18 03/15/22 History release folic acid 400 mcg tablet 400 mcg PO HS 06/06/18 03/15/22 History levothyroxine 50 mcg tablet 50 mcg PO QAM 06/06/18 03/15/22 History memantine 10 mg tablet 10 mg PO BIDM 06/06/18 03/15/22 History pantoprazole 40 mg tablet,delayed 40 mg PO BID 06/06/18 03/15/22 History release promethazine 25 mg tablet 25 mg PO Q6H PRN Nausea 06/06/18 03/15/22 History tizanidine 4 mg tablet 4 - 8 mg PO HS 06/06/18 03/15/22 History trazodone 50 mg tablet 100 mg PO HS PRN Sleep 06/06/18 03/15/22 History zolmitriptan 5 mg tablet 2.5 - 5 mg PO BID PRN Migraine 06/06/18 03/15/22 History Headache cetirizine 10 mg tablet 10 mg PO QAM 02/17/19 03/15/22 History magnesium gluconate 27 mg 125 mg PO HS 05/19/19 03/15/22 History magnesium (500 mg) tablet (Mag-G) galcanezumab-gnlm 120 mg/mL 120 mg subcut MONTHLY 08/03/19 03/15/22 History subcutaneous pen injector (Emgality Pen) diphenoxylate-atropine 2.5 1 tab PO QID PRN Diarrhea 02/18/20 03/15/22 History mg-0.025 mg tablet hydroxyzine HCl 25 mg tablet 25 mg PO QAM 02/18/20 03/15/22 History multivitamin with minerals 1 tab PO HS 09/10/20 03/15/22 History desipramine 25 mg tablet 25 mg PO DAILY 11/13/20 03/15/22 History gabapentin 300 mg capsule See Rx Instructions .Route .COMPLEX 11/13/20 03/15/22 History pindolol 5 mg tablet 5 mg PO BID 11/13/20 03/15/22 History dicyclomine 20 mg tablet 20 mg PO QID PRN Abdominal 11/14/20 03/15/22 History Discomfort ergocalciferol (vitamin D2) 1,250 1,250 mcg PO WK 11/14/20 03/15/22 History mcg (50,000 unit) capsule (Vitamin D2) lorazepam 0.5 mg tablet 1 mg PO UD PRN procedures/panic 11/14/20 03/15/22 History rimegepant 75 mg disintegrating 75 mg PO UD PRN Headache 08/01/21 03/15/22 History tablet (Nurtec ODT) lidocaine 5 % topical patch 1 patch topical DAILY PRN Pain 10/29/21 03/15/22 History (Lidoderm) tramadol 50 mg tablet 50 mg PO Q6 PRN Pain 10/29/21 03/15/22 History furosemide 40 mg tablet 40 mg PO QAM #30 tabs 03/08/22 03/15/22 Rx potassium chloride 20 mEq 20 meq PO QAM #30 tabs 03/08/22 03/15/22 Rx tablet,extended release(part/cryst) Patient History Medical History Barretts esophagus Chronic neck pain Deafness in right ear Degenerative disc disease Depression Gastroesophageal reflux disease Gastroparesis High blood pressure History of bronchitis inhaler prn Hypothyroidism Hypothyroidism Insulin resistance Migraine Obesity Polycystic ovaries Surgical History H/O sinus surgery x2--recent on 08/2019 History of colonoscopy History of esophagogastroduodenoscopy (EGD) History of eye surgery x2 on right History of tooth extraction History of wisdom tooth extraction S/P cholecystectomy Family History Mother Family history of reaction to anesthesia after 2 hours afer breast cancer sx "her lungs started filling up with fluid" per pt was told it was d/t anesthesia Breast cancer Environmental allergies Heart disease Hypertension Grandfather (Paternal) Family history of diabetes mellitus Father Cancer Grandfather Cancer Other Diabetes Lung disease No family history of bleeding disorder Seizure Social History Smoking Status: Never smoker Second Hand Exposure: No; Do You Dip or Chew Tobacco: No; Tobacco Cessation Education Requested by Patient: No Hx Alcohol Use: Yes Alcohol type: wine Alcohol Intake Frequency Comment: 2x per year Hx Substance Use: No Preferred Language: Bengali 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 Ability: Effective 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 Beliefs That Will Affect Care: None marital status: Current Living Situation: Spouse current occupational status: disabled Other Information That Helps Us Care for You: No Feels Safe at Home: Yes Safety Concerns: Feels Safe At This Time Assistive Devices: None Review of Systems Review of Systems: All systems reviewed & are unremarkable except as noted in HPI & below Physical Exam Constitutional: WD/WN, vitals as above + obese Respiratory: normal respiratory effort, lungs clear to auscultation Cardiovascular: Rate/Rhythm: regular rate and regular rhythm Heart Sounds: no murmur Vessels: no JVD Extremities: no edema Gastrointestinal (Abdomen): normal bowel sounds, soft, nontender, no hepatosplenomegaly Skin: no rashes, warm and dry Neurologic: PERRL, EOMI, accommodation nl, no face palsy, no dysarthria Psychiatric: Orientation: alert and oriented x 3 Affect: + anxious affect and + tearful affect Results & Data ([facility]) Vital Signs (Past 12 Hours) Vital Signs Temp Pulse Pulse Resp BP BP Pulse Ox 03/15/22 08:00 36.6 C 87 18 144/85 H 03/15/22 07:51 85 03/15/22 07:51 03/15/22 06:08 36.8 C 102 H 15 147/97 H 96 03/15/22 05:55 105 H 03/15/22 05:51 03/15/22 05:00 92 H 94 03/15/22 04:30 93 H 93 03/15/22 04:30 149/99 H 03/15/22 04:00 99 H 21 94 03/15/22 04:00 130/96 03/15/22 03:30 101 H 18 150/93 H 93 03/15/22 03:00 96 H 18 143/97 H 92 03/15/22 02:31 86 17 159/108 H 95 03/15/22 02:00 91 H 24 134/99 95 03/15/22 01:30 94 H 23 151/93 H 95 03/15/22 01:00 92 H 24 143/100 H 96 03/15/22 00:40 91 H 23 160/99 H 96 03/15/22 00:30 89 22 156/101 H 93 03/15/22 00:20 91 H 22 153/103 H 94 03/15/22 00:10 98 H 23 147/107 H 95 03/15/22 00:07 93 H 21 134/101 H 94 03/15/22 00:01 110 H 150/101 H O2 Del Method 03/15/22 08:00 03/15/22 07:51 03/15/22 07:51 Room Air 03/15/22 06:08 Room Air 03/15/22 05:55 03/15/22 05:51 Room Air 03/15/22 05:00 03/15/22 04:30 03/15/22 04:30 03/15/22 04:00 03/15/22 04:00 03/15/22 03:30 Room Air 03/15/22 03:00 Room Air 03/15/22 02:31 Room Air 03/15/22 02:00 Room Air 03/15/22 01:30 Room Air 03/15/22 01:00 Room Air 03/15/22 00:40 Room Air 03/15/22 00:30 Room Air 03/15/22 00:20 Room Air 03/15/22 00:10 Room Air 03/15/22 00:07 Room Air 03/15/22 00:01 Laboratory Results Laboratory Results WBC 9.32 K/ul (4.8-10.8) 03/14/22 22:37 RBC 4.35 M/uL (3.93-5.22) 03/14/22 22:37 Hgb 11.1 g/dl (12.0-16.0) L 03/14/22 22:37 Hct 35.4 % (34.1-44.9) 03/14/22 22:37 MCV 81.4 fL (80.0-100.0) 03/14/22 22:37 MCH 25.5 pg (25.0-34.0) 03/14/22 22:37 MCHC 31.4 g/dL (32.0-36.0) L 03/14/22 22:37 RDW Std Deviation 61.9 fL (36.4-46.3) H 03/14/22 22:37 RDW Coeff of [place] 21.6 % (11.5-14.5) H 03/14/22 22:37 Plt Count 292 K/uL (130-400) 03/14/22 22:37 MPV 10.1 fL (9.4-12.3) 03/14/22 22:37 Immature Gran % (Auto) 0.3 % 03/14/22 22:37 Neut % (Auto) 65.1 % 03/14/22 22:37 Lymph % (Auto) 26.3 % 03/14/22 22:37 [place] % (Auto) 5.6 % 03/14/22 22:37 Eos % (Auto) 2.3 % 03/14/22 22:37 Baso % (Auto) 0.4 % 03/14/22 22:37 Neut # (Auto) 6.07 K/uL (1.4-6.5) 03/14/22 22:37 Lymph # (Auto) 2.45 K/uL (1.2-3.4) 03/14/22 22:37 [place] # (Auto) 0.52 K/uL (0.24-0.82) 03/14/22 22:37 Eos # (Auto) 0.21 K/uL (0-0.50) 03/14/22 22:37 Baso # (Auto) 0.04 K/uL (0-0.2) 03/14/22 22:37 Immature Gran # (Auto) 0.03 K/uL (0.00-0.02) H 03/14/22 22:37 RBC Morphology Unremarkable 03/14/22 22:37 PT 9.9 Seconds (9.0-12.0) 03/14/22 22:37 INR 0.9 (0.9-1.1) 03/14/22 22:37 APTT 26.6 Seconds (21.0-31.0) 03/14/22 22:37 PTT Ratio 1.0 03/14/22 22:37 D-Dimer 920 ug/L FEU (0-500) H* 03/15/22 09:10 Sodium 139 mmol/L (136-145) 03/14/22 22:37 Potassium 3.8 mmol/L (3.5-5.1) 03/14/22 22:37 Chloride 108 mmol/L (98-107) H 03/14/22 22:37 Carbon Dioxide 20 mmol/L (21-32) L 03/14/22 22:37 Anion Gap 11 (3-11) 03/14/22 22:37 BUN 5 mg/dl (6-23) L 03/14/22 22:37 Creatinine 0.82 mg/dl (0.6-1.2) 03/14/22 22:37 Est Cr Clr Drug Dosing 111.1 ml/min 03/14/22 22:37 Est GFR ( Amer) 103.0 ml/min 03/14/22 22:37 Est GFR (Non-Af Amer) 88.9 ml/min 03/14/22 22:37 BUN/Creatinine Ratio 6.1 (10-20) L 03/14/22 22:37 Glucose 122 mg/dl (70-99(Fasting)) H 03/14/22 22:37 Calcium 8.9 mg/dl (8.5-10.1) 03/14/22 22:37 Total Bilirubin 0.4 mg/dl (0.2-1.0) 03/14/22 22:37 AST 18 U/L (13-39) 03/14/22 22:37 ALT 17 U/L (7-52) 03/14/22 22:37 Alkaline Phosphatase 78 U/L (34-104) 03/14/22 22:37 Troponin I High Sens 4.4 pg/ml (0-14) 03/15/22 09:10 Total Protein 7.5 gm/dl (6.0-8.3) 03/14/22 22:37 Albumin 4.3 gm/dl (3.4-5.0) 03/14/22 22:37 Globulin 3.2 gm/dl (2.5-4.0) 03/14/22 22:37 Albumin/Globulin Ratio 1.3 (0.9-2) 03/14/22 22:37 SARS-CoV-2, RNA, NAAT NEGATIVE (NEGATIVE) 03/15/22 02:41 Impressions Chest X-Ray 03/14/22 22:56 XR chest 1V portable CLINICAL HISTORY: Chest Pain. COMPARISON STUDY: 03/05/2022 TECHNIQUE: 1 view of the chest FINDINGS: Single frontal view of the chest demonstrates the cardiomediastinal silhouette to be within normal limits. There is a decreased inspiratory effort with elevat ion of the hemidiaphragms and crowding of the bronchovascular markings at the lung bases and centrally. The lungs are clear of alveolar opacities. There is no evidence for pleural effusion. There is no evidence for vascular congestion. There is no acute osseous pathology. IMPRESSION: 1. There is a decreased inspiratory effort with otherwise no acute chest disease. ACT 112: Negative or not required by law. Electronically signed by: Ulysses Haro M.D. 03/15/2022 7:22 AM Diagnostic Findings EKG on admission: Sinus tachycardia Left anterior fascicular block Cannot rule out Inferior infarct (masked by fascicular block?) , age undetermined Cannot rule out Anterior infarct , age undetermined Abnormal ECG When compared with ECG of 08-MAR-2022 05:08, No significant change was found Repeat EKG this morning: Normal sinus rhythm Left axis deviation Low voltage QRS Prolonged QT Abnormal ECG When compared with ECG of 14-MAR-2022 22:26, (unconfirmed) No significant change was found echo report reviewed from 03/06/22 Normal LV wall thickness. LV wall motion is normal. Left ventricular systolic function is normal. Ejection fraction 60 to 65%. RV is normal in size and function. Grade 1 diastolic dysfunction. No significant valvular pathology. Medications Administered Current Inpatient Medications Acetaminophen (Acetaminophen 325 Mg Tab) 650 mg PO Q4H PRN PRN Reason: Mild Pain or Fever Stop: 04/14/22 05:39 Aspirin (Aspirin 81 Mg Ectab) 81 mg PO QAM [facility] Stop: 04/14/22 08:59 Last Admin: 03/15/22 08:04 Dose: 81 mg Baclofen (Baclofen 10 Mg Tab) 5 mg PO BID PRN PRN Reason: Headache/Neck Pain Stop: 04/14/22 05:39 Cetirizine HCl (Cetirizine Hcl 10 Mg Tablet) 10 mg PO QAM [facility] Stop: 04/14/22 08:59 Last Admin: 03/15/22 08:04 Dose: 10 mg Desipramine HCl (Desipramine Hcl 25 Mg Tab) 25 mg PO DAILY [facility] Stop: 04/14/22 08:59 Last Admin: 03/15/22 08:05 Dose: 25 mg Dicyclomine HCl (Dicyclomine Hcl 20 Mg Tab) 20 mg PO QID PRN PRN Reason: Abdominal Discomfort Stop: 04/14/22 05:39 Diphenoxylate HCl/Atropine (Diphenoxylate/Atropine 2.5/0.025mg Tab) 1 tab PO QID PRN PRN Reason: Diarrhea Stop: 04/14/22 05:39 Duloxetine HCl (Duloxetine Hcl 60 Mg Cap) 120 mg PO DAILY [facility] Stop: 04/14/22 08:59 Last Admin: 03/15/22 08:04 Dose: 120 mg Ergocalciferol (Ergocalciferol 50,000 Units 1250 Mcg Cap) 50,000 units PO Q7D [facility] Stop: 04/17/22 08:59 Furosemide (Furosemide 40 Mg Tab) 40 mg PO QAM [facility] Stop: 04/14/22 08:59 Last Admin: 03/15/22 08:04 Dose: 40 mg Gabapentin (Gabapentin 300 Mg Cap) 300 mg PO 0900,1400 [facility] Stop: 04/14/22 08:59 Last Admin: 03/15/22 08:06 Dose: 300 mg Gabapentin (Gabapentin 300 Mg Cap) 900 mg PO QPM [facility] Stop: 04/14/22 20:59 Hydromorphone HCl (Hydromorphone Inj 0.5 Mg/0.5 Ml Syr) 0.25 mg IV Q3H PRN PRN Reason: Severe Pain Stop: 03/29/22 06:26 Last Admin: 03/15/22 07:26 Dose: 0.25 mg Hydroxyzine HCl (Hydroxyzine Hcl 25 Mg Tab) 25 mg PO QAM [facility] Stop: 04/14/22 08:59 Last Admin: 03/15/22 08:04 Dose: 25 mg Levothyroxine Sodium (Levothyroxine Sodium 50 Mcg Tablet) 50 mcg PO DAILYBB [facility] Stop: 04/14/22 06:29 Last Admin: 03/15/22 07:20 Dose: 50 mcg Lidocaine (Lidocaine 5% 1 Patch) 1 patch TD DAILY PRN PRN Reason: Pain Stop: 04/14/22 08:59 Memantine (Memantine Hcl 10 Mg Tab) 10 mg PO BIDM [facility] Stop: 04/14/22 07:59 Metoprolol Tartrate (Metoprolol Tartrate 50 Mg Tab) 50 mg PO BID [facility] Stop: 04/14/22 08:59 Last Admin: 03/15/22 11:27 Dose: 50 mg Miscellaneous ([Nurtec Odt: Order Awaiting Action) 1 each N/A QS [facility] Stop: 04/14/22 07:59 Miscellaneous (Remove Lidoderm Patch) 1 each N/A DAILY@2100 [facility] Stop: 04/14/22 20:59 Multivitamins/Minerals (Cerovite Adv Formula Tab) 1 tab PO HS [facility] Stop: 04/14/22 20:59 Nitroglycerin (Nitroglycerin Sl 0.4 Mg/Tab Tab) 0.4 mg SL UD PRN PRN Reason: Chest Pain Stop: 04/14/22 05:39 Ondansetron HCl (Ondansetron Inj 2 Mg/Ml 2 Ml Vial) 4 mg IV Q6H PRN PRN Reason: Nausea Stop: 04/14/22 05:39 Pantoprazole Sodium (Pantoprazole 40 Mg Tab) 40 mg PO BID [facility] Stop: 04/14/22 08:59 Last Admin: 03/15/22 08:04 Dose: 40 mg Potassium Chloride (Potassium Chloride Crtab 20 Meq Tabcr) 20 meq PO QAM [facility] Stop: 04/14/22 08:59 Last Admin: 03/15/22 08:04 Dose: 20 meq Promethazine HCl (Promethazine Hcl 25 Mg Tab) 25 mg PO Q6H PRN PRN Reason: Nausea Stop: 04/14/22 05:39 Tizanidine HCl (Tizanidine Hcl 4 Mg Tablet) 4 - 8 mg PO HS PRN PRN Reason: Muscle Spasm Stop: 04/14/22 20:59 Tramadol HCl (Tramadol Hcl 50 Mg Tablet) 50 mg PO Q6 PRN PRN Reason: Moderate Pain Stop: 04/14/22 05:39
--- NOTE | 2022-03-15 12:22 | 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 Note ---
Date of Service: March 15, 2022 Patient admitted earlier today for substernal chest pain and shortness of breath. EKG and troponin negative so far. D dimer elevated. CTA chest ordered Patient would benefit from better BP control TTE from last week--overall unremarkable other than grade 1 diastolic dysfunction Patient denies history of SKIP, reports she had a negative sleep study. A/P- 1. Atypical chest pain --Trend Trop, obtain CTA chest, optimize blood pressure control
--- NOTE | 2022-03-15 12:27 | Electrocardiogram Report ---
Test Reason : Blood Pressure : / mmHG Vent. Rate : 114 BPM Atrial Rate : 114 BPM P-R Int : 144 ms QRS Dur : 076 ms QT Int : 332 ms P-R-T Axes : 055 -53 023 degrees QTc Int : 457 ms Sinus tachycardia Left anterior fascicular block Poor R wave progression, consider anterior [place] vs. lead placement vs. LVH Abnormal ECG When compared with ECG of 08-MAR-2022 05:08, No significant change was found Confirmed by Ari Lin ([id number]) on 03/15/2022 12:27:30 PM Referred By: REFERRED SELF Confirmed By:Sean Lin
--- NOTE | 2022-03-15 12:36 | Electrocardiogram Report ---
Test Reason : Blood Pressure : / mmHG Vent. Rate : 091 BPM Atrial Rate : 091 BPM P-R Int : 144 ms QRS Dur : 080 ms QT Int : 392 ms P-R-T Axes : 065 -38 042 degrees QTc Int : 482 ms Normal sinus rhythm Left axis deviation Low voltage QRS Prolonged QT Abnormal ECG When compared with ECG of 14-MAR-2022 22:26, (unconfirmed) No significant change was found Confirmed by Ari Lin ([id number]) on 03/15/2022 12:36:04 PM Referred By: REFERRED SELF Confirmed By:Sean Lin
[2022-03-15] MEDS ORDERED: OPTIRAY 320 125ml IV ONE (13:27)
[2022-03-15] MEDS: MEMANTINE HCL 10 MG TAB PO SCH ×2 (13:29→18:36)
[2022-03-15] MEDS: SPIRONOLACTONE 12.5 MG TAB PO SCH (13:33)
--- NOTE | 2022-03-15 13:55 | CT Scan Report ---
CT ANGIOGRAM OF THE CHEST CLINICAL HISTORY: Dyspnea. Elevated d-dimer. COMPARISON STUDY: Chest x-ray dated 03/15/2022. Chest CT dated 06/18/2019. TECHNIQUE: Following the IV administration of 120 cc of Optiray 320, CT angiogram of the chest was pe rformed from the upper abdomen to the thoracic inlet utilizing the pulmonary embolus protocol. Images are reviewed in the axial, sagittal, and coronal planes. 3-D MIPS images are created and assessed. I V contrast was administered without complication. A dose lowering technique was utilized adhering to the principles of ALARA. CT DOSE: 636.03 mGy.cm FINDINGS: Thyroid: Imaged portions of the thyroid gland are normal in size and attenuation. Thoracic aorta: The thoracic aorta is normal in caliber and demonstrates 4-vessel variant arch anatom y. No dissection is seen. Pulmonary vasculature: The pulmonary trunk is normal in caliber. There are no filling defects identif ied in main, lobar, or segmental pulmonary branches to suggest pulmonary embolus. Heart: The heart is normal in size and without pericardial effusion. Lungs and pleural spaces: There is no airspace consolidation or pleural effusion. The trachea and alex tral airways are clear. Dependent atelectasis is noted at the lung bases. Mediastinum: There is no mediastinal lymphadenopathy. [place]: Clear. Axillae: There is no axillary lymphadenopathy. Upper abdomen: Cholecystectomy clips are noted. The liver appears steatotic. The spleen is mildly enl arged measuring 13.5 cm in length. Skeletal structures: No lytic or blastic bony lesions are seen. IMPRESSION: 1. There is no evidence of pulmonary embolus in the main, lobar, or segmental pulmonary arteries. 2. There is no airspace consolidation or pleural effusion. ACT 112: Negative or not required by law. Electronically signed by: Minesh Barnett M.D. 03/15/2022 1:53 PM
[2022-03-15] MEDS ORDERED: GABAPENTIN 300 MG CAP PO SCH (21:00)
[2022-03-15] MEDS ORDERED: NON-FORMULARY MEDICATION (Magnesium Gluconate [Mag-G] 27 mg magnesium (500 mg) tablet) PO SCH (21:00)
[2022-03-15] MEDS ORDERED: CEROVITE ADV FORMULA TAB PO SCH (21:00)
[2022-03-15] MEDS ORDERED: tiZANidine HCL 4 MG TABLET PO PRN (21:00)
[2022-03-16] MEDS: LEVOTHYROXINE SODIUM 50 MCG TABLET PO SCH (07:15)
[2022-03-16] MEDS: HYDROmorphone INJ 0.5 MG/0.5 ML SYR IV PRN (07:59)
[2022-03-16] MEDS: DULoxetine HCL 60 MG CAP PO SCH (08:03)
[2022-03-16] MEDS: GABAPENTIN 300 MG CAP PO SCH ×2 (08:03→13:29)
[2022-03-16] MEDS: hydrOXYzine HCl 25 MG TAB PO SCH (08:03)
[2022-03-16] MEDS: FUROSEMIDE 40 MG TAB PO SCH (08:03)
[2022-03-16] MEDS: PANTOprazole 40 MG TAB PO SCH (08:04)
[2022-03-16] MEDS: METOPROLOL TARTRATE 50 MG TAB PO SCH (08:04)
[2022-03-16] MEDS: CETIRIZINE HCL 10 MG TABLET PO SCH (08:04)
[2022-03-16] MEDS: MEMANTINE HCL 10 MG TAB PO SCH (08:04)
[2022-03-16] MEDS: DESIPRAMINE HCL 25 MG TAB PO SCH (08:04)
[2022-03-16] MEDS: ASPIRIN 81 MG ECTAB PO SCH (08:04)
[2022-03-16] MEDS: SPIRONOLACTONE 12.5 MG TAB PO SCH (08:05)
--- NOTE | 2022-03-16 13:30 | Discharge Summary ---
Date of Service March 16, 2022 Admission HPI Per Admitting Provider A 41-year-old female with past medical history significant for chronic migraines on Namenda, mood disorder, polycystic ovarian syndrome, insulin resistance as per record, hypothyroidism, gastroparesis, history ofhistory syringomyelia, hemorrhoids, status post surgery, chronic anemia, baseline hemoglobin around 10, nocturnal hypoxia as per records, presents with chest pain. The patient was recently in the hospital in first week of March with acute diastolic CHF, after receiving prednisone for poison gabi, improved with IV diuretics. She also received 3 doses of IV Venofer for iron deficiency anemia. Echo showed grade 1 diastolic dysfunction, no significant valvular pathology and today, the patient comes with chest pain. The patient stated starting yesterday night, she had chest pain. She took 4 baby aspirins and was able to sleep, but since the morning, a nagging chest pain was present that is not getting better, in the middle of the chest, moderate sharp pain, sometimes radiating to the left shoulder and left arm and fingers, which prompted her to come to the ER. Any ambulation making the pain worse. Denies any shortness of breath, has mild dizziness. No nausea, no sweating, no cough, no fevers, no blurred visions, no earache, no runny nose, no sore throat. No abdominal pain. She has alternating diarrhea and constipation, no blood in the stools. Normal bladder movements. No swelling in the legs. Currently, resting comfortably and hemodynamically stable. Principal Diagnosis Poorly controlled HTN Atypical chest pain Discharge Exam No acute distress. Blood pressure improved On exam, appears well, ambulating to/from restroom with no difficulty. CV- regular rate and rhythm. Pulm- breathing comfortably on room air. No lower extremity edema Discharge Data Allergies Allergy/AdvReac Type Severity Reaction Status Date / Time morphine Allergy Severe Hives,itchiness,nausea Verified 03/06/22 00:06 and vomiting topiramate Allergy Severe neurological Verified 03/06/22 00:06 symptoms cephalexin Allergy Mild rash Verified 03/06/22 00:06 nickel Allergy Redness of Verified 03/15/22 06:16 Skin Consultations 03/15/22 02:28 ED Decision to Admit Stat 03/15/22 08:00 Consult Cardiology Routine Ordered Studies 03/15/22 10:18 CT angio chest PE protocol Urgent Hospital Course (1) Poorly-controlled hypertension: (2) Atypical chest pain: Plan Ms Cassi Preston is a 41 year old female with multiple medical conditions including migraine headache, obesity, depression, PCOS, hypertension, chronic diastolic CHF presented to the hospital 03/15 with substernal chest pain for past several days. She had serial troponin and EKG which were negative for ACS. She recently had a TTE 03/06/2022 so a repeat was not obtained. D dimer was elevated so CTA chest was ordered which was negative for PE. Her blood pressure was noted to be elevated (SBP 150s) so likely her chest pain may be due to poorly controlled hypertension. With the addition of spironolactone 12.5mg daily her BP improved. At the time of discharge changes to her home medications were: 1. Metoprolol 50mg BID (new) 2. Spironolactone 12.5mg daily (new) 3. Lasix 40mg daily (continued) Pindolol 5mg BID was discontinued Patient was instructed to keep a log book of her blood pressure and follow up with her PCP in 1 week for BP check and repeat BMP. Total Time Total Time Spent Total Time Spent (In Minutes): 35 Discharge Plan Discharge Items Patient Disposition: Home - Self-Care Reason For Visit: CHEST PAIN Discharge Diagnosis: Poorly controlled HTN Atypical chest pain Condition on Discharge: Good Activity: Resume your previous activity Non-emergency contact: Primary Care Provider and Release Of Information Clerk Call non-emergency contact if: you have any medication questions Follow-up/Referrals: Taran Torre DO [Release Of Information Clerk] - (Date & Time 03/30/2022 10:00 AM Provider Taran Torre DO Department Cardiology, [facility] ) Melania Zhou DO [Primary Care Provider] - (Date & Time 03/22/2022 11:10 AM Provider Melania Zhou DO Department [facility] ) Diet: Carb Consistent or DM2 and Heart Healthy Addtl Attending Provider Instructions: Please follow up with your PCP in 1 week for blood pressure and repeat BMP with your recent medication changes Pending Studies at Discharge: No Stand-Alone Forms: My 3 day Blinds, Smoking Cessation Medications and DC Order Prescriptions: New spironolactone 25 mg Tablet 12.5 mg PO DAILY 30 Days Qty: 15 1RF metoprolol tartrate 50 mg Tablet 50 mg PO BID 30 Days Qty: 60 1RF Continued Nurtec ODT 75 mg tablet,disintegrating 75 mg PO UD MDD 2 days a week PRN (Reason: Headache) Rx Instructions: take 1 tablet at begining of headache baclofen 20 mg tablet 5 mg PO BID PRN (Reason: Headache/Neck Pain) Rx Instructions: take 0.25 tablet twice a day as needed for headache trazodone 50 mg tablet 100 mg PO HS PRN (Reason: Sleep) tizanidine 4 mg tablet 4 - 8 mg PO HS folic acid 400 mcg tablet 400 mcg PO HS levothyroxine 50 mcg tablet 50 mcg PO QAM Rx Instructions: TAKE THIS MEDICATION 30 MINUTES BEFORE BREAKFAST OR ANY OTHER MEDICATIONS pantoprazole 40 mg tablet,delayed release (DR/EC) 40 mg PO BID promethazine 25 mg tablet 25 mg PO Q6H PRN (Reason: Nausea) memantine 10 mg tablet 10 mg PO BIDM Rx Instructions: TAKE THIS MEDICATION WITH MORNING AND EVENING MEALS duloxetine 30 mg capsule,delayed release(DR/EC) 120 mg PO DAILY Rx Instructions: 4 capsule dose zolmitriptan 5 mg Tablet 2.5 - 5 mg PO BID PRN (Reason: Migraine Headache) Rx Instructions: TAKE ONE HALF TO ONE TABLET AT ONSET OF MIGRAINE HEADACHE, MAY REPEAT DOSE ONCE AFTER TWO HOURS IF NEEDED. TAKE NO MORE THAN TWO DAYS A WEEK. magnesium gluconate [Mag-G] 27 mg magnesium (500 mg) tablet 125 mg PO HS multivitamin with minerals Tablet 1 tab PO HS cetirizine 10 mg Tablet 10 mg PO QAM Emgality Pen 120 mg/mL pen injector 120 mg SUBCUT MONTHLY Rx Instructions: USUALLY ON THE 1ST OF THE MONTH diphenoxylate-atropine 2.5-0.025 mg tablet 1 tab PO QID PRN (Reason: Diarrhea) hydroxyzine HCl 25 mg tablet 25 mg PO QAM desipramine 25 mg tablet 25 mg PO DAILY gabapentin 300 mg capsule See Rx Instructions .ROUTE .COMPLEX Rx Instructions: 300 mg orally ;take 1 capsule in morning and may repeat 1 capsule midday.take up to 3 capsules at bedtime ergocalciferol (vitamin D2) [Vitamin D2] 1,250 mcg (50,000 unit) Capsule 1,250 mcg PO WK Rx Instructions: take on sundays lorazepam 0.5 mg tablet 1 mg PO UD PRN (Reason: procedures/panic) Rx Instructions: take 1 tablet 1 hour prior to procedure,repeat in 15 min befor and again if needed for panic dicyclomine 20 mg Tablet 20 mg PO QID PRN (Reason: Abdominal Discomfort) furosemide 40 mg Tablet 40 mg PO QAM Qty: 30 0RF potassium chloride 20 mEq Tablet,Er Particles/Crystals 20 meq PO QAM Qty: 30 0RF tramadol 50 mg tablet 50 mg PO Q6 PRN (Reason: Pain) lidocaine [Lidoderm] 5 % adhesive patch,medicated 1 patch topical DAILY PRN (Reason: Pain) Rx Instructions: leave on most painful area for up to 12 hrs Discontinued pindolol 5 mg tablet 5 mg PO BID Rx Instructions: may increase to 10mg bid Discharge Orders: Discharge Order (Routine); Ordered 03/16/22 Ordered By: Sharmiane Brown Admission Data Admit Date/Time: 03/15/22 04:53 Attending Provider: Sharmaine Brown Admit Provider: Harvey Muñiz Primary Care Provider: Melania Zhou Other Providers: Harvey Muñiz ; Lanre Jarquin ; Taran Torre ; Lux Garcia ; Alexander Zhou ; BennyRoldan christiansen ; Ajay العلي ; Myrtle Hernandez ; Lia Barry ; Celi Ojeda ; Vipul Kim Other Interventions: Discharge Summary Assessment (RN) Last Done: 03/16/22 13:24
--- NOTE | 2022-03-16 18:03 | Electrocardiogram Report ---
Test Reason : Blood Pressure : / mmHG Vent. Rate : 071 BPM Atrial Rate : 071 BPM P-R Int : 152 ms QRS Dur : 088 ms QT Int : 432 ms P-R-T Axes : 049 -18 031 degrees QTc Int : 469 ms Normal sinus rhythm Low voltage QRS Poor R wave progression, consider anterior [place] vs. lead placement vs. LVH Abnormal ECG When compared with ECG of 15-MAR-2022 10:37, No significant change was found Confirmed by Ari Lin ([id number]) on 03/16/2022 6:03:09 PM Referred By: REFERRED SELF Confirmed By:Sean Lin
[2022-03-18] MEDS ORDERED: ERGOCALCIFEROL 50,000 UNITS 1250 MCG CAP PO SCH (09:00)
== END 2022-03-16 15:21 | disposition home or self-care (01) | DRG 313 ==
LOC: ED 22:15 → 2S 03-15 04:53

== ENCOUNTER 2022-08-05 20:13 | Inpatient (IN) ==
[2022-08-05 21:09] LABS: Appearance Urine Clear (Clear); Bacteria Urine Automated Negative (Negative); Bilirubin Urine Negative (Negative); Blood Urine Negative (Negative); Color Urine Yellow; Epithelial Cell Urine Auto >30 /lpf (0-5); Glucose Urine UA Negative (Negative); Ketones Urine Negative (Negative); Leukocyte Esterase Urine Trace (Negative); Nitrite Urine Negative (Negative); Protein Urine Negative (Negative); RBC Urine Automated 0-4 /hpf (0-4); Specific Gravity Urine 1.007 (1.000-1.030); Urobilinogen Urine Negative (Negative); pH Urine 5.5 (4.5-7.5)
[2022-08-05 21:23] LABS: Albumin Globulin Ratio 1.6 (0.9-2); Albumin Level 4.5 gm/dl (3.4-5.0); BUN Creatinine Ratio 11.8 (10-20); Basophils # (auto) 0.06 K/uL (0-0.2); Basophils % (auto) 0.5 %; Bilirubin,Total 0.4 mg/dl (0.2-1.0); Calcium 9.4 mg/dl (8.5-10.1); Eosinophils # (auto) 0.24 K/uL (0-0.50); Eosinophils % (auto) 1.9 %; Est GFR (Non-African American) 84.5 ml/min; Globulin 2.9 gm/dl (2.5-4.0); Hematocrit (blood only) 38.8 % (34.1-44.9); Hemoglobin 14.1 g/dl (12.0-16.0); Immature Granulocytes # (auto) 0.06 K/uL (0.00-0.02); Immature Granulocytes % (auto) 0.5 %; Lymphocytes % (auto) 21.9 %; Mean Corpuscular Hemoglobin 32.3 pg (25.0-34.0); Mean Corpuscular Hgb Conc 36.3 g/dL (32.0-36.0); Mean Corpuscular Volume 88.8 fL (80.0-100.0); Mean Platelet Volume 9.8 fL (9.4-12.3); Monocytes # (auto) 0.71 K/uL (0.24-0.82); Monocytes % (auto) 5.6 %; Neutrophils # (auto) 8.89 K/uL (1.4-6.5); Neutrophils % (auto) 69.6 %; Platelet Count 343 K/uL (130-400); Potassium 3.5 mmol/L (3.5-5.1); RDW Coefficient of Variation 12.2 % (11.5-14.5); RDW Standard Deviation 39.8 fL (36.4-46.3); Red Blood Count 4.37 M/uL (3.93-5.22); Total Protein 7.4 gm/dl (6.0-8.3); White Blood Count 12.76 K/ul (4.8-10.8)
[2022-08-05] MEDS ORDERED: fentaNYL citrate 100 MCG/2 ML VIAL IV STA (23:23)
[2022-08-05] MEDS ORDERED: KETOROLAC TROMETHAMINE 15 MG/ML VIAL IV ONE (23:23)
[2022-08-05 23:36] LABS: Pregnancy Test, Serum Negative (Negative)
--- NOTE | 2022-08-05 23:50 | Emergency Department Note ---
History of Present Illness General Chief complaint: Abdominal Pain Stated complaint: ABDOMINAL PAIN Time Seen by Provider: 08/05/22 22:57 Source: patient Mode of arrival: ambulatory Limitations: no limitations History of Present Illness Provider complaint: Left lower abdominal pain, back pain Maximum Pain Intensity: 8 This is a 42-year-old female presents emergency department due to concern for several days of left lower quadrant abdominal pain similar to prior episodes of ovarian cyst. Patient states she is also had some accompanying left low back pain with radiation down her left lower extremity. She states her only position of comfort is to curl up in the position on her left side. She states she has been taking Tylenol and Advil at home. She states the pain was dull until last night when he began to feel more severe and continued to be persistently severe throughout the day today. No recent abnormal bleeding or discharge. She states she did not have a menstrual cycle in July. Patient was previously taking fertility treatments although is not currently getting any hormonal therapy and no recent procedures. Patient has had several prior ovarian cysts on both sides. Last ultrasound was a little over a month ago. She states she also has other GI history including gastroparesis and IBS. She does feel a sense of urinary urgency and frequency but did not noticed any blood or dysuria. She denies fevers or chills. No recent trauma or change in activity. Home Medications Medication Instructions Recorded Confirmed Type baclofen 20 mg tablet 10 mg PO DAILY PRN Headache/Neck 06/06/18 08/06/22 History Pain duloxetine 30 mg capsule,delayed 120 mg PO DAILY 06/06/18 08/06/22 History release folic acid 400 mcg tablet 400 mcg PO HS 06/06/18 08/06/22 History levothyroxine 50 mcg tablet 50 mcg PO QAM 06/06/18 08/06/22 History memantine 10 mg tablet 10 mg PO BIDM 06/06/18 08/06/22 History pantoprazole 40 mg tablet,delayed 40 mg PO BID 06/06/18 08/06/22 History release promethazine 25 mg tablet 25 mg PO Q6H PRN Nausea 06/06/18 08/06/22 History cetirizine 10 mg tablet 10 mg PO QAM 02/17/19 08/06/22 History magnesium gluconate 27 mg 125 mg PO HS 05/19/19 08/06/22 History magnesium (500 mg) tablet (Mag-G) galcanezumab-gnlm 120 mg/mL 120 mg subcut MONTHLY 08/03/19 08/06/22 History subcutaneous pen injector (Emgality Pen) diphenoxylate-atropine 2.5 1 tab PO QID PRN Diarrhea 02/18/20 08/06/22 History mg-0.025 mg tablet hydroxyzine HCl 25 mg tablet 25 mg PO QAM 02/18/20 08/06/22 History desipramine 25 mg tablet 25 mg PO DAILY 11/13/20 08/06/22 History gabapentin 300 mg capsule See Rx Instructions .Route .COMPLEX 11/13/20 08/06/22 History dicyclomine 20 mg tablet 20 mg PO QID PRN Abdominal 11/14/20 08/06/22 History Discomfort lorazepam 0.5 mg tablet 1 mg PO UD PRN procedures/panic 11/14/20 08/06/22 His tory rimegepant 75 mg disintegrating 75 mg PO UD PRN Headache 08/01/21 08/06/22 History tablet (Nurtec ODT) potassium chloride 20 mEq 20 meq PO QAM #30 tabs 03/08/22 08/06/22 Rx tablet,extended release(part/cryst) metoprolol tartrate 50 mg tablet 50 mg PO BID 30 days #60 tabs 03/16/22 08/06/22 Rx spironolactone 25 mg tablet 12.5 mg PO DAILY 30 days #15 tabs 03/16/22 08/06/22 Rx Allergies Allergy/AdvReac Type Severity Reaction Status Date / Time morphine Allergy Severe Hives,itchiness,nausea Verified 06/13/22 16:55 and vomiting topiramate Allergy Severe neurological Verified 06/13/22 16:55 symptoms onabotulinumtoxinA Allergy Intermediate Abdominal Verified 06/13/22 16:56 [From Botox] Pain cephalexin Allergy Mild rash Verified 06/13/22 16:55 nickel Allergy Mild Redness of Verified 06/13/22 16:56 Skin Past Med/Surg History Medical History (HFpEF) heart failure with preserved ejection fraction Abdominal pain Barretts esophagus Chronic neck pain Deafness in right ear Degenerative disc disease Depression Elevated d-dimer Gastroesophageal reflux disease Gastroparesis High blood pressure History of bronchitis inhaler prn Hypothyroidism Hypothyroidism Insulin resistance Left-sided chest pain Migraine Obesity Polycystic ovaries Surgical History H/O sinus surgery x2--recent on 08/2019 History of colonoscopy History of esophagogastroduodenoscopy (EGD) History of eye surgery x2 on right History of tooth extraction History of wisdom tooth extraction S/P cholecystectomy Family History Mother Family history of reaction to anesthesia after 2 hours afer breast cancer sx "her lungs started filling up with fluid" per pt was told it was d/t anesthesia Breast cancer Environmental allergies Heart disease Hypertension Grandfather (Paternal) Family history of diabetes mellitus Father Cancer Grandfather Cancer Other Diabetes Lung disease No family history of bleeding disorder Seizure Social History Smoking Status: Never smoker Second Hand Exposure: No; Hx Alcohol Use: Yes Alcohol type: wine Alcohol Intake Frequency Comment: 2x per year Hx Substance Use: No Preferred Language: Upper Sorbian 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 Ability: Effective Bunch Maker Required: No Beliefs That Will Affect Care: None marital status: Current Living Situation: Spouse current occupational status: disabled Other Information That Helps Us Care for You: No Feels Safe at Home: Yes Safety Concerns: Feels Safe At This Time Assistive Devices: None Review of Systems A total of 10 systems reviewed and were otherwise negative All systems reviewed & are unremarkable except as noted in HPI & below Physical Exam Vital Signs Vital Signs - 24 hr 08/05/22 20:21 08/05/22 23:06 08/06/22 00:03 Temperature 36.5 C Temperature Source Temporal Artery Scan Pulse Rate 91 H Pulse Rate [Bilateral Apical] 7 L 91 H Respiratory Rate 18 20 20 Respiratory Effort / Characteristics Non-Labored Respiratory Depth Normal Normal Blood Pressure 153/96 H Blood Pressure [Right Arm] 124/79 138/88 Blood Pressure Mean 115 Blood Pressure Mean [Right Arm] 94 104 Pulse Oximetry 97 96 95 Oxygen Delivery Method Room Air Room Air Room Air Sepsis New/Unexplained Change in Mental Status N/A Sepsis Action Taken by Nursing No Action Required 08/06/22 01:06 08/06/22 02:01 08/06/22 03:00 Temperature Temperature Source Pulse Rate Pulse Rate [Bilateral Apical] 75 79 78 Respiratory Rate 20 20 20 Respiratory Effort / Characteristics Respiratory Depth Blood Pressure Blood Pressure [Right Arm] 131/60 120/90 139/98 Blood Pressure Mean Blood Pressure Mean [Right Arm] 83 100 111 Pulse Oximetry 96 93 96 Oxygen Delivery Method Room Air Room Air Room Air Sepsis New/Unexplained Change in Mental Status Sepsis Action Taken by Nursing 08/06/22 04:00 08/06/22 05:57 Temperature Temperature Source Pulse Rate Pulse Rate [Bilateral Apical] 78 78 Respiratory Rate 20 20 Respiratory Effort / Characteristics Respiratory Depth Blood Pressure Blood Pressure [Right Arm] 153/104 H 161/88 H Blood Pressure Mean Blood Pressure Mean [Right Arm] 120 112 Pulse Oximetry 93 97 Oxygen Delivery Method Room Air Room Air Sepsis New/Unexplained Change in Mental Status Sepsis Action Taken by Nursing GENERAL: alert, uncomfortable appearing, well nourished, mild distress, non- toxic EYE EXAM: normal conjunctiva, PERRL and EOM's grossly intact OROPHARYNX: no exudate, no erythema, lips, buccal mucosa, and tongue normal and mucous membranes are moist NECK: supple, no nuchal rigidity, no adenopathy, non-tender LUNGS: Clear to auscultation. Normal chest wall mechanics, no w/r/r HEART: no murmurs, S1 normal and S2 normal ABDOMEN: abdomen soft, tenderness with palpation in the left lower quadrant, normo-active bowel sounds, no masses, no rebound or guarding. BACK: Back is symmetrical on inspection and there is no deformity, no midline tenderness, no CVA tenderness. Tenderness with palpation in the left lumbar paraspinal region. SKIN: no rashes and no bruising UPPER EXTREMITIES: upper extremities are grossly normal. FROM, nml pulses b/l. LOWER EXTREMITIES: No pitting edema. FROM, nml pulses b/l. NEURO EXAM: Normal sensorium, cranial nerves II-XII grossly intact, normal spee ch, no gross weakness of arms, no gross weakness of legs. Gross sensation intact. Course Course 021: Patient updated on results. She states she still having significant pain. Administered Medications Cetirizine HCl (Cetirizine Hcl 10 Mg Tablet) 10 mg PO QAM [facility] Stop: 09/06/22 08:59 Last Admin: 08/07/22 08:07 Dose: 10 mg Documented By: JOSE Desipramine HCl (Desipramine Hcl 25 Mg Tab) 25 mg PO DAILY [facility] Stop: 09/06/22 08:59 Last Admin: 08/07/22 08:07 Dose: 25 mg Documented By: JOSE Duloxetine HCl (Duloxetine Hcl 60 Mg Cap) 120 mg PO DAILY [facility] Stop: 09/06/22 08:59 Last Admin: 08/07/22 08:06 Dose: 120 mg Documented By: JOSE Folic Acid (Folic Acid 400 Mcg Tab) 400 mcg PO [facility] Stop: 09/05/22 20:59 Last Admin: 08/06/22 20:56 Dose: 400 mcg Documented By: PK Gabapentin (Gabapentin 300 Mg Cap) 300 mg PO BID@0900,1200 [facility] Stop: 09/06/22 08:59 Last Admin: 08/07/22 08:07 Dose: 300 mg Documented By: JOSE Gabapentin (Gabapentin 300 Mg Cap) 300 mg PO [facility] Stop: 09/05/22 20:59 Last Admin: 08/06/22 20:56 Dose: 300 mg Documented By: PK Hydromorphone HCl (Hydromorphone Inj 0.5 Mg/0.5 Ml Syr) 0.25 mg IV Q6H PRN PRN Reason: severe pain Stop: 08/20/22 08:55 Last Admin: 08/07/22 07:24 Dose: 0.25 mg Documented By: Admin: 08/07/22 01:16 Dose: 0.25 mg Documented By: Admin: 08/06/22 14:44 Dose: 0.25 mg Documented By: JOSE Hydroxyzine HCl (Hydroxyzine Hcl 25 Mg Tab) 25 mg PO QAM [facility] Stop: 09/06/22 08:59 Last Admin: 08/07/22 08:07 Dose: 25 mg Documented By: JOSE Ketorolac Tromethamine (Ketorolac Tromethamine 15 Mg/Ml Vial) 15 mg IV Q6H PRN PRN Reason: moderate pain Stop: 08/11/22 08:55 Last Admin: 08/06/22 17:44 Dose: 15 mg Documented By: JOSE Levothyroxine Sodium (Levothyroxine Sodium 50 Mcg Tablet) 50 mcg PO DAILYBB [facility] Stop: 09/06/22 06:29 Last Admin: 08/07/22 06:04 Dose: 50 mcg Documented By: PK Magnesium Chloride (Magnesium Chloride W/Calcium 64mg Delayed Rel Tab) 64 mg PO [facility] Stop: 09/05/22 20:59 Last Admin: 08/06/22 20:55 Dose: 64 mg Documented By: PK Memantine (Memantine Hcl 10 Mg Tab) 10 mg PO BIDM [facility] Stop: 09/05/22 16:59 Last Admin: 08/07/22 08:07 Dose: 10 mg Documented By: Admin: 08/06/22 17:40 Dose: 10 mg Documented By: LCS Metoprolol Tartrate (Metoprolol Tartrate 50 Mg Tab) 50 mg PO BID [facility] Stop: 09/05/22 20:59 Last Admin: 08/07/22 08:07 Dose: 50 mg Documented By: Admin: 08/06/22 20:56 Dose: 50 mg Documented By: PK Oxycodone HCl (Oxycodone Hcl Ir 5 Mg Tab (Immediate Release)) 5 - 10 mg PO QID PRN PRN Reason: Pain Stop: 08/20/22 19:29 Last Admin: 08/07/22 03:21 Dose: 10 mg Documented By: Admin: 08/06/22 20:59 Dose: 10 mg Documented By: PK Pantoprazole Sodium (Pantoprazole 40 Mg Tab) 40 mg PO BID [facility] Stop: 09/05/22 20:59 Last Admin: 08/07/22 08:07 Dose: 40 mg Documented By: Admin: 08/06/22 20:56 Dose: 40 mg Documented By: PK Potassium Chloride (Potassium Chloride Crtab 20 Meq Tabcr) 20 meq PO QAM [facility] Stop: 09/06/22 08:59 Last Admin: 08/07/22 08:07 Dose: 20 meq Documented By: LCS Spironolactone (Spironolactone 12.5 Mg Tab) 12.5 mg PO DAILY [facility] Stop: 09/06/22 08:59 Last Admin: 08/07/22 08:08 Dose: 12.5 mg Documented By: LCS Discontinued Medications Enoxaparin Sodium (Enoxaparin Inj 60 Mg/0.6 Ml Syr) 50 mg SQ Q12H [facility] Stop: 09/05/22 09:44 Last Admin: 08/06/22 11:22 Dose: 50 mg Documented By: SLB Fentanyl Citrate (Fentanyl Citrate 100 Mcg/2 Ml Vial) 50 mcg IV NOW STA Stop: 08/05/22 23:24 Last Admin: 08/05/22 23:52 Dose: 50 mcg Documented By: LUIS Fentanyl Citrate (Fentanyl Citrate 100 Mcg/2 Ml Vial) 50 mcg IV NOW STA Stop: 08/06/22 01:10 Last Admin: 08/06/22 01:23 Dose: 50 mcg Documented By: LUIS Hydromorphone HCl (Hydromorphone Inj 0.5 Mg/0.5 Ml Syr) 0.5 mg IV NOW STA Stop: 08/06/22 02:24 Last Admin: 08/06/22 02:54 Dose: 0.5 mg Documented By: HARESH Hydromorphone HCl (Hydromorphone Inj 0.5 Mg/0.5 Ml Syr) 0.25 mg IV NOW STA Stop: 08/06/22 05:19 Last Admin: 08/06/22 05:32 Dose: 0.25 mg Documented By: HARESH Hydromorphone HCl (Hydromorphone Inj 0.5 Mg/0.5 Ml Syr) 0.25 mg IV NOW STA Stop: 08/06/22 06:42 Last Admin: 08/06/22 06:46 Dose: 0.25 mg Documented By: HARESH Sodium Chloride (Nss) 500 mls @ 80 mls/hr IV .Q6H15M [facility] Stop: 09/04/22 23:29 Last Admin: 08/06/22 06:30 Dose: Not Given Documented By: Infusion: 08/06/22 06:05 Dose: 0 mls/hr Documented By: Admin: 08/05/22 23:52 Dose: 80 mls/hr Documented By: LUIS Acetaminophen (Ofirmev) 1,000 mg in 100 mls @ 400 mls/hr IV NOW STA Stop: 08/06/22 01:23 Last Infusion: 08/06/22 01:43 Dose: 0 mls/hr Documented By: Admin: 08/06/22 01:23 Dose: 400 mls/hr Documented By: LUIS Famotidine 20 mg/ Syringe 5 mls @ 2.5 mls/min IV Q12H [facility] Stop: 09/05/22 09:44 Last Admin: 08/06/22 10:42 Dose: 2.5 mls/min Documented By: LAUREL Sodium Chloride (Nss 1000ml) 1,000 mls @ 125 mls/hr IV .Q8H [facility] Stop: 08/07/22 02:14 Last Infusion: 08/07/22 03:19 Dose: 0 mls/hr Documented By: Admin: 08/06/22 19:17 Dose: 125 mls/hr Documented By: Infusion: 08/06/22 19:17 Dose: 125 mls/hr Documented By: Admin: 08/06/22 11:22 Dose: 125 mls/hr Documented By: BRAULIO Ioversol (Optiray 350 100ml) 100 ml IV ONCE ONE Stop: 08/06/22 03:09 Last Admin: 08/06/22 03:08 Dose: 87 ml Documented By: ANN-MARIE Ketorolac Tromethamine (Ketorolac Tromethamine 15 Mg/Ml Vial) 10 mg IV NOW ONE Stop: 08/05/22 23:24 Last Admin: 08/05/22 23:52 Dose: 10 mg Documented By: LUIS Ketorolac Tromethamine (Ketorolac Tromethamine 15 Mg/Ml Vial) 10 mg IV NOW ONE Stop: 08/06/22 05:19 Last Admin: 08/06/22 05:32 Dose: 10 mg Documented By: HARESH Ketorolac Tromethamine (Ketorolac Tromethamine 15 Mg/Ml Vial) 15 mg IV NOW ONE Stop: 08/06/22 19:28 Last Admin: 08/06/22 19:48 Dose: 15 mg Documented By: FLAVIA Lorazepam (Lorazepam 1 Mg/1 Ml Syr) 0.5 mg IV NOW STA; Protocol Stop: 08/06/22 07:18 Last Admin: 08/06/22 11:18 Dose: Not Given Documented By: BRAULIO Critical Care Time Critical Care Time: Yes Total Critical Care Time: 49 Critical care of 49 min performed to assess and manage high likelihood of life- threatening abdominal pain and back pain, involving labs and imaging performed with assessment to evaluate abdominal pain and back pain diagnosis with frequent reassessment. Multiple doses of pain medications given, and >2 L of IV fluids. This time includes bedside time, treatment discussions with patient/family/consultants, documentation time and excludes procedure time. Medical Decision Making Differential Diagnosis Differential diagnoses includes but is not limited to gastritis, peptic ulcer disease, GERD, gallbladder disease, pancreatitis, small bowel obstruction, schemic bowel, irritable bowel disease, irritable bowel syndrome, appendicitis, diverticulitis, malignancy, hernia, urinary tract infection, torsion, [/ectopic (if female)], perforation, trauma, infectious. Medical Records Attestation: I reviewed the patient's medical records. Home Medications Current Medication List: was personally reviewed by me Laboratory Data Attestation: I reviewed the patient's lab results. Result diagrams: 08/07/22 06:29 08/07/22 06:29 Lab Results 08/05/22 08/05/22 08/05/22 Range/Units 20:25 20:25 20:25 WBC 12.76 H (4.8-10.8) K/ul RBC 4.37 (3.93-5.22) M/uL Hgb 14.1 (12.0-16.0) g/dl Hct 38.8 (34.1-44.9) % MCV 88.8 (80.0-100.0) fL MCH 32.3 (25.0-34.0) pg MCHC 36.3 H (32.0-36.0) g/dL RDW Std Deviation 39.8 (36.4-46.3) fL RDW Coeff of Cameron 12.2 (11.5-14.5) % Plt Count 343 (130-400) K/uL MPV 9.8 (9.4-12.3) fL Immature Gran % (Auto) 0.5 % Neut % (Auto) 69.6 % Lymph % (Auto) 21.9 % [place] % (Auto) 5.6 % Eos % (Auto) 1.9 % Baso % (Auto) 0.5 % Neut # (Auto) 8.89 H (1.4-6.5) K/uL Lymph # (Auto) 2.80 (1.2-3.4) K/uL [place] # (Auto) 0.71 (0.24-0.82) K/uL Eos # (Auto) 0.24 (0-0.50) K/uL Baso # (Auto) 0.06 (0-0.2) K/uL Immature Gran # (Auto) 0.06 H (0.00-0.02) K/uL Sodium 139 (136-145) mmol/L Potassium 3.5 (3.5-5.1) mmol/L Chloride 102 (98-107) mmol/L Carbon Dioxide 26 (21-32) mmol/L Anion Gap 11 (3-11) BUN 10 (6-23) mg/dl Creatinine 0.85 (0.6-1.2) mg/dl Est Cr Clr Drug Dosing 105.0 ml/min Est GFR ( Amer) 98.0 ml/min Est GFR (Non-Af Amer) 84.5 ml/min BUN/Creatinine Ratio 11.8 (10-20) Glucose 138 H (70-99(Fasting)) mg/dl Calcium 9.4 (8.5-10.1) mg/dl Total Bilirubin 0.4 (0.2-1.0) mg/dl AST 11 L (13-39) U/L ALT 12 (7-52) U/L Alkaline Phosphatase 73 (34-104) U/L Total Protein 7.4 (6.0-8.3) gm/dl Albumin 4.5 (3.4-5.0) gm/dl Globulin 2.9 (2.5-4.0) gm/dl Albumin/Globulin Ratio 1.6 (0.9-2) Lipase 22 (11-82) U/L HCG, Qual Negative (Negative) Urine Color Urine Appearance (Clear) Urine pH (4.5-7.5) Ur Specific [place] (1.000-1.030) Urine Protein (Negative) Urine Glucose (UA) (Negative) Urine Ketones (Negative) Urine Blood (Negative) Urine Nitrite (Negative) Urine Bilirubin (Negative) Urine Urobilinogen (Negative) Ur Leukocyte Esterase (Negative) Urine WBC (Auto) (0-5) /hpf Urine RBC (Auto) (0-4) /hpf U Hyaline Cast (Auto) (0-5) /lpf U Epithel Cells (Auto) (0-5) /lpf Urine Bacteria (Auto) (Negative) POC Ur Test (NEG) SARS-CoV-2, RNA, NAAT (NEGATIVE) 08/05/22 08/05/22 08/06/22 Range/Units 20:28 20:28 07:05 WBC (4.8-10.8) K/ul RBC (3.93-5.22) M/uL Hgb (12.0-16.0) g/dl Hct (34.1-44.9) % MCV (80.0-100.0) fL MCH (25.0-34.0) pg MCHC (32.0-36.0) g/dL RDW Std Deviation (36.4-46.3) fL RDW Coeff of Cameron (11.5-14.5) % Plt Count (130-400) K/uL MPV (9.4-12.3) fL Immature Gran % (Auto) % Neut % (Auto) % Lymph % (Auto) % [place] % (Auto) % Eos % (Auto) % Baso % (Auto) % Neut # (Auto) (1.4-6.5) K/uL Lymph # (Auto) (1.2-3.4) K/uL [place] # (Auto) (0.24-0.82) K/uL Eos # (Auto) (0-0.50) K/uL Baso # (Auto) (0-0.2) K/uL Immature Gran # (Auto) (0.00-0.02) K/uL Sodium (136-145) mmol/L Potassium (3.5-5.1) mmol/L Chloride (98-107) mmol/L Carbon Dioxide (21-32) mmol/L Anion Gap (3-11) BUN (6-23) mg/dl Creatinine (0.6-1.2) mg/dl Est Cr Clr Drug Dosing ml/min Est GFR ( Amer) ml/min Est GFR (Non-Af Amer) ml/min BUN/Creatinine Ratio (10-20) Glucose (70-99(Fasting)) mg/dl Calcium (8.5-10.1) mg/dl Total Bilirubin (0.2-1.0) mg/dl AST (13-39) U/L ALT (7-52) U/L Alkaline Phosphatase (34-104) U/L Total Protein (6.0-8.3) gm/dl Albumin (3.4-5.0) gm/dl Globulin (2.5-4.0) gm/dl Albumin/Globulin Ratio (0.9-2) Lipase (11-82) U/L HCG, Qual (Negative) Urine Color Yellow Urine Appearance Clear (Clear) Urine pH 5.5 (4.5-7.5) Ur Specific [place] 1.007 (1.000-1.030) Urine Protein Negative (Negative) Urine Glucose (UA) Negative (Negative) Urine Ketones Negative (Negative) Urine Blood Negative (Negative) Urine Nitrite Negative (Negative) Urine Bilirubin Negative (Negative) Urine Urobilinogen Negative (Negative) Ur Leukocyte Esterase Trace H (Negative) Urine WBC (Auto) 1-5 (0-5) /hpf Urine RBC (Auto) 0-4 (0-4) /hpf U Hyaline Cast (Auto) 1-5 (0-5) /lpf U Epithel Cells (Auto) >30 H (0-5) /lpf Urine Bacteria (Auto) Negative (Negative) POC Ur Test NEG (NEG) SARS-CoV-2, RNA, NAAT NEGATIVE (NEGATIVE) Imaging Data Radiologist's Impression: Pelvis Ultrasound 08/05/22 23:23 PELVIC ULTRASOUND CLINICAL HISTORY: Left lower quadrant pain, hx ov cysts COMPARISON STUDY: Pelvic ultrasound March 11, [address] of the abdomen and pelvis October 29, 2021. TECHNIQUE: Transabdominal and transvaginal sonography of the pelvis was performed. FINDINGS: Uterus measures 7.1 x 3.9 x 4.7 cm. Endometrium measures 7 mm in thickness. Nabothian cysts within the cervix are noted. The right ovary measures 5.1 x 2.9 x 3.5 cm and the left ovary measures 4.9 x 4.6 x 4.3 cm. There is color flow within each ovary. A 3.8 cm left renal cyst is noted. Multiple follicles within the ovaries are present. No free fluid is identified. IMPRESSION: 1. 3.8 cm left ovarian cyst. 2. No sonographic evidence for ovarian torsion. 2. Numerous follicles within the ovaries. ACT 112: Negative or not required by law. Electronically signed by: Kush White M.D. 08/06/2022 9:02 AM Abdomen/Pelvis CT 08/06/22 02:23 CT OF THE ABDOMEN AND PELVIS WITH CONTRAST CLINICAL HISTORY: Left lower quadrant pain, left low back pain COMPARISON STUDY: CT of the abdomen and pelvis October 29, 2021 and pelvic ultrasound performed earlier today. TECHNIQUE: Following IV administration of 87 mL of Optiray, axial images of the abdomen and pelvis were obtained from the lung bases to the proximal femurs. Images were reviewed in the axial, sagittal, and coronal planes. IV contrast was administered without complication. Automated exposure control was utilized for the study. A dose lowering technique was utilized adhering to the principles of ALARA. CT DOSE: 880.84 mGy.cm FINDINGS: Lung bases are unremarkable. No pneumatosis, free air or portal venous gas is present. There is hepatic steatosis. Mild biliary ductal dilatation is unchanged and likely related to cholecystectomy. Mild splenomegaly is unchanged. There are no hepatic lesions. Adrenal glands, kidneys and pancreas are unremarkable. There is no pancreatic ductal dilatation. No peripancreatic infiltration is present. There is no hydronephrosis. The appendix is normal. The caliber and wall thickness of small and large bowel are normal. There is no ascites. No lymphadenopathy is present. A 4.1 cm left ovarian cyst is present. 2.3 cm dominant follicle within the right ovary is noted. Major vasculature is patent. IMPRESSION: 1. No acute process within the abdomen or pelvis. 2. No bowel obstruction. No bowel wall thickening. Normal appendix. 3. 4.1 cm left ovarian cyst. ACT 112: Negative or not required by law. Electronically signed by: Kush White M.D. 08/06/2022 7:36 AM Ultrasound pelvic/endovaginal: The uterus measures 7.1 x 4.0 x 4.7 cm. The endometrial lining measures 0.7 cm the right ovary measures 5.1 x 2.9 x 3.5 cm with normal vascular flow. There are numerous right-sided ovarian follicles. The left ovary measures 4.9 x 4.6 x 4.3 cm with multiple follicles. Impression: No acute abnormalities in the pelvis. Multiple bilateral ovarian follicles. Radiologist: David Gonzales MD CT abdomen and pelvis with contrast: Bilateral adnexal/ovarian cyst measuring up to 3.8 cm. Status postcholecystectomy. Small and large bowel and the appendix normal. Solid organs demonstrate no acute findings. Radiologist: Shelton Muller MD MDM Narrative An order was placed for continuous cardiac monitoring. The monitor shows a rate of _80_ with _normal sinus__ rhythm. This is a 42-year-old female with a history of ovarian cyst who presents due to concern for recurrent ovarian cysts given worsening left lower quadrant abdominal pain. Patient also with accompanying back pain and radiation in the left lower extremity which is unusual compared to prior episodes. No significant history of back problems. Patient afebrile and hemodynamically stable. Labs drawn and sent prior to my evaluation as she presented on day of high volume and acuity. A pelvic ultrasound was added after discussion at bedside due to her prior history. Overnight radiology group did not read any significant abnormalities on pelvic ULTRASOUND including no discrete ovarian cyst. After additional discussion with the patient and her persistent pain despite medications and fluids here, we opted to perform additional CT imaging. CT reassuring although suggestive by that overnight radiologist of possible cyst. Patient had persistent pain despite multiple doses of medication for pain and nausea. Patient uncomfortable going home. It does seem abnormal given her prior episodes of ovarian cyst to have this level of persistent pain as well as accompanying back pain with radiation. Patient had an otherwise normal and nonfocal neuro exam. No other evidence of acute abnormality on CT or labs. Due to need for additional pain management, we discussed options for disposition. Patient comfortable going home at this time. Case discussed with hospitalist for additional evaluation and management. Impression & Plan Abdominal pain, Back pain, Acute lumbar radiculopathy, Ovarian cyst Discharge Plan Visit Data Chief Complaint: Abdominal Pain Stated Complaint: ABDOMINAL PAIN ED Provider: Whitney Emanuel Discharge Problem: Abdominal pain, Back pain, Acute lumbar radiculopathy, Ovarian cyst Patient Disposition: Admitted As Inpatient Discharge Instructions Interventions: ED Discharge Assessment Last Done: 08/06/22 09:15
[2022-08-05] MEDS: SODIUM CHLORIDE 0.9% 500 ML IV SCH (23:52)
[2022-08-06] MEDS ORDERED: fentaNYL citrate 100 MCG/2 ML VIAL IV STA (01:09)
[2022-08-06] MEDS ORDERED: ACETAMINOPHEN 1,000 MG/100 ML VIAL IV STA (01:09)
[2022-08-06] MEDS ORDERED: HYDROmorphone INJ 0.5 MG/0.5 ML SYR IV STA ×3 (02:23→06:41)
[2022-08-06] MEDS ORDERED: OPTIRAY 350 100ml IV ONE (03:08)
[2022-08-06] MEDS ORDERED: KETOROLAC TROMETHAMINE 15 MG/ML VIAL IV ONE ×2 (05:18→19:27)
[2022-08-06] MEDS: SODIUM CHLORIDE 0.9% 500 ML IV SCH (06:30)
[2022-08-06] MEDS ORDERED: LORazepam 1 MG/1 ML SYR IV STA (07:17)
--- NOTE | 2022-08-06 07:38 | CT Scan Report ---
CT OF THE ABDOMEN AND PELVIS WITH CONTRAST CLINICAL HISTORY: Left lower quadrant pain, left low back pain COMPARISON STUDY: CT of the abdomen and pelvis October 29, 2021 and pelvic ultrasound performed ear lier today. TECHNIQUE: Following IV administration of 87 mL of Optiray, axial images of the abdomen and pelvis we re obtained from the lung bases to the proximal femurs. Images were reviewed in the axial, sagittal, and coronal planes. IV contrast was administered without complication. Automated exposure control wa s utilized for the study. A dose lowering technique was utilized adhering to the principles of ALARA . CT DOSE: 880.84 mGy.cm FINDINGS: Lung bases are unremarkable. No pneumatosis, free air or portal venous gas is present. Ther e is hepatic steatosis. Mild biliary ductal dilatation is unchanged and likely related to cholecystec sarita. Mild splenomegaly is unchanged. There are no hepatic lesions. Adrenal glands, kidneys and pancr eas are unremarkable. There is no pancreatic ductal dilatation. No peripancreatic infiltration is pre sent. There is no hydronephrosis. The appendix is normal. The caliber and wall thickness of small and large bowel are normal. There is no ascites. No lymphadenopathy is present. A 4.1 cm left ovarian cy st is present. 2.3 cm dominant follicle within the right ovary is noted. Major vasculature is patent. IMPRESSION: 1. No acute process within the abdomen or pelvis. 2. No bowel obstruction. No bowel wall thickening. Normal appendix. 3. 4.1 cm left ovarian cyst. ACT 112: Negative or not required by law. Electronically signed by: Kush White M.D. 08/06/2022 7:36 AM
[2022-08-06] MEDS ORDERED: POLYETHYLENE (MIRALAX) 17 GM PACK PO PRN (07:57)
[2022-08-06] MEDS ORDERED: ALUMINUM/MAGNESIUM SUSP 30 ML UDC PO PRN (07:57)
[2022-08-06] MEDS ORDERED: ACETAMINOPHEN 325 MG TAB PO PRN (07:57)
[2022-08-06] MEDS ORDERED: ONDANSETRON INJ 2 MG/ML 2 ML VIAL IV PRN (07:57)
[2022-08-06] MEDS ORDERED: MAGNESIUM HYDROXIDE SUSP 30 ML UDC PO PRN (07:57)
[2022-08-06] MEDS ORDERED: KETOROLAC TROMETHAMINE 15 MG/ML VIAL IV PRN (08:56)
--- NOTE | 2022-08-06 08:56 | History & Physical Report ---
Date of Service August 06, 2022 Assessment & Plan (1) Abdominal pain: (2) Polycystic ovaries: (3) Migraine: (4) (HFpEF) heart failure with preserved ejection fraction: (5) Hypertension: (6) Depression: (7) Hypothyroidism: Plan 42-year-old with abdominal pain and history of polycystic ovaries. Leukocytosis 12.76 WBC, reports mucus in her stool will rule out infective causes. . OB consult placed. n.p.o. for now with IV pain control. Abdominal pain: Polycystic ovaries: Abdominal pelvic CT :4.1 cm left ovarian cyst. TVUS 07/24 outpatient: Bilateral ovarian cysts; tubular anechoic structure suggesting hydrosalpinx To unsuccessful IUI; last attempt 01/2022 LMP June 2022 hCG negative N.p.o. for now Pain control with IV Dilaudid and Ketorolac PRN slight leukocytosis 12.76 IVFluids at 100ml/hour OB consult placed; discussed via tiger text with Dr. Quinn Chronic migraines: Takes Nurtec PRN Takes tizanidine and hydroxyzine and tests Hyperamine; continue Takes Emgality monthly, last dose was August 01 HFpEF: 15 pound weight gain noted with steroid use for poison gabi treatment Patient had developed chest pain and received work-up for ACS/STEMI which was negative And review of chart patient sees Dr. Torre OPT March 2022 ECHO 03/2022 EF 60 to 65% was advised to have OPT stress test which has not been completed There is a note that says she has a drug-eluting stent that was placed in 2019 but need to confirm this Hypertension: Takes Metoprolol; continue IBS: Constipation/diarrhea fluctuates every few days Currently having mucus in her stool; will check stool culture to rule out C. difficile CHF: Takes spironolactone; continue KCl for potassium replacement; continue Depression: Takes duloxetine; continue Hypothyroidism: Takes levothyroxine; continue Disposition: PCP: Dr. Zhou CODE STATUS: Full code VTE prophylaxis: Lovenox subcu I personally was able to review all current laboratory work and diagnostic images obtained in the ED. Additionally, I was able to review the patients past medication reconciliation and history with direct visualization in the patients chart. This patient was discussed and collaborated with Dr. Ambriz. Please see his addendum for further details History of Present Illness Chief Complaint: abdominal pain Primary Care Provider: Melania Zhou DO Ms. Cassi Preston is a 42-year-old female that presented to the [facility] ED with LLQ pain. The patient describes her pain as being intermittent since however on the pain became more constant with radiation from the LLQ to her left flank area and describes radiation down to her toes. An abdominal and pelvic CT was obtained and negative and an abdominal ultrasound revealed a 4.1 left ovarian cyst. Patient historically has had a complex reproductive history including PCOS for which she has been on Femara in the past but is not currently taking for infertility she describes that her and her have been trying to conceive for the last 4 years and have been following with a fertility specialist and had 2 IUI procedures with the last one being 01/2022. Transvaginal ultrasound was done 07/2022 revealing bilateral ovarian cysts and a tubular anechoic structure suggesting hydrosalpinx. She reports that she usually has a menstrual period monthly however has not had one since June 2022. Patient reports that she has IBS and has noticed mucus in her stool. Additional past medical history includes gastroparesis, migraines, obesity, hypertension, CHF. The patient was tearful at bedside and appears to be uncomfortable . She did just receive a dose of Dilaudid which she reports did help . On exam deep palpation to the left lower quadrant is tender. Positive left CVA tenderness. ; Patient does have slight leukocytosis will check UA and stool culture . Procalcitonin pending. We will continue to rule out organic causes of this patient's. abdominal pa I did touch base with on-call OB who will evaluate the patient as well. Patient will be admitted for further evaluation and management including pain control . We will keep n.p.o. for now . Please see A/P for further details. Allergies Allergy/AdvReac Type Severity Reaction Status Date / Time morphine Allergy Severe Hives,itchiness,nausea Verified 06/13/22 16:55 and vomiting topiramate Allergy Severe neurological Verified 06/13/22 16:55 symptoms onabotulinumtoxinA Allergy Intermediate Abdominal Verified 06/13/22 16:56 [From Botox] Pain cephalexin Allergy Mild rash Verified 06/13/22 16:55 nickel Allergy Mild Redness of Verified 06/13/22 16:56 Skin Home Medications Medication Instructions Recorded Confirmed Type baclofen 20 mg tablet 10 mg PO DAILY PRN Headache/Neck 06/06/18 08/06/22 History Pain duloxetine 30 mg capsule,delayed 120 mg PO DAILY 06/06/18 08/06/22 History release folic acid 400 mcg tablet 400 mcg PO HS 06/06/18 08/06/22 History levothyroxine 50 mcg tablet 50 mcg PO QAM 06/06/18 08/06/22 History memantine 10 mg tablet 10 mg PO BIDM 06/06/18 08/06/22 History pantoprazole 40 mg tablet,delayed 40 mg PO BID 06/06/18 08/06/22 History release promethazine 25 mg tablet 25 mg PO Q6H PRN Nausea 06/06/18 08/06/22 History cetirizine 10 mg tablet 10 mg PO QAM 02/17/19 08/06/22 History magnesium gluconate 27 mg 125 mg PO HS 05/19/19 08/06/22 History magnesium (500 mg) tablet (Mag-G) galcanezumab-gnlm 120 mg/mL 120 mg subcut MONTHLY 08/03/19 08/06/22 History subcutaneous pen injector (Emgality Pen) diphenoxylate-atropine 2.5 1 tab PO QID PRN Diarrhea 02/18/20 08/06/22 History mg-0.025 mg tablet hydroxyzine HCl 25 mg tablet 25 mg PO QAM 02/18/20 08/06/22 History desipramine 25 mg tablet 25 mg PO DAILY 11/13/20 08/06/22 History gabapentin 300 mg capsule See Rx Instructions .Route .COMPLEX 11/13/20 08/06/22 History dicyclomine 20 mg tablet 20 mg PO QID PRN Abdominal 11/14/20 08/06/22 History Discomfort lorazepam 0.5 mg tablet 1 mg PO UD PRN procedures/panic 11/14/20 08/06/22 History rimegepant 75 mg disintegrating 75 mg PO UD PRN Headache 08/01/21 08/06/22 History tablet (Nurtec ODT) potassium chloride 20 mEq 20 meq PO QAM #30 tabs 03/08/22 08/06/22 Rx tablet,extended release(part/cryst) metoprolol tartrate 50 mg tablet 50 mg PO BID 30 days #60 tabs 03/16/22 08/06/22 Rx spironolactone 25 mg tablet 12.5 mg PO DAILY 30 days #15 tabs 03/16/22 08/06/22 Rx Past Med/Surg History Medical History (HFpEF) heart failure with preserved ejection fraction Abdominal pain Barretts esophagus Chronic neck pain Deafness in right ear Degenerative disc disease Depression Elevated d-dimer Gastroesophageal reflux disease Gastroparesis High blood pressure History of bronchitis inhaler prn Hypothyroidism Hypothyroidism Insulin resistance Left-sided chest pain Migraine Obesity Polycystic ovaries Surgical History H/O sinus surgery x2--recent on 08/2019 History of colonoscopy History of esophagogastroduodenoscopy (EGD) History of eye surgery x2 on right History of tooth extraction History of wisdom tooth extraction S/P cholecystectomy Family History Mother Family history of reaction to anesthesia after 2 hours afer breast cancer sx "her lungs started filling up with fluid" per pt was told it was d/t anesthesia Breast cancer Environmental allergies Heart disease Hypertension Grandfather (Paternal) Family history of diabetes mellitus Father Cancer Grandfather Cancer Other Diabetes Lung disease No family history of bleeding disorder Seizure Social History Smoking Status: Never smoker Second Hand Exposure: No; Hx Alcohol Use: Yes Alcohol type: wine Alcohol Intake Frequency Comment: 2x per year Hx Substance Use: No Preferred Language: Montserratian 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 Ability: Effective 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 (+) mucus in stool : (-) urinary changes (-) hematuria, (-) dysuria Skin: (-) rashes Psych: (+) anxiety, depression Physical Exam Physical Exam: Neuro: AAOx4, PERRLA, no aphagia, memory changes, CNII-XII grossly intact; tearful HEENT: head normocephalic, moist mucus membranes CV: S1/S2, (-) M/G/R, (-) edema, cap refill < 3 seconds Resp: Lungs CTA in all snyder. On RA GI: Abdomen Ax4 bowel sounds, (+) left CVA tenderness (+) LLQ tenderness Musculoskeletal: 5/5 B/L UE strength, 5/5 B/L LE strength. No gait disturbance Skin: (-) rashes , (-) erythema. Psych: euthymic, yet tearful mood Results & Data Results & Data ([facility]) Vital Signs (Past 12 Hours) Vital Signs Pulse Resp BP Pulse Ox O2 Del Method 08/06/22 05:57 78 20 161/88 H 97 Room Air 08/06/22 04:00 78 20 153/104 H 93 Room Air 08/06/22 03:00 78 20 139/98 96 Room Air 08/06/22 02:01 79 20 120/90 93 Room Air 08/06/22 01:06 75 20 131/60 96 Room Air 08/06/22 00:03 91 H 20 138/88 95 Room Air 08/05/22 23:06 7 L 20 124/79 96 Room Air Laboratory Results Short CBC 08/05/22 Range/Units 20:25 WBC 12.76 H (4.8-10.8) K/ul Hgb 14.1 (12.0-16.0) g/dl Hct 38.8 (34.1-44.9) % Plt Count 343 (130-400) K/uL BMP 08/05/22 20:25 Sodium 139 Potassium 3.5 Chloride 102 Carbon Dioxide 26 BUN 10 Creatinine 0.85 Glucose 138 H Calcium 9.4 Liver Function 08/05/22 Range/Units 20:25 Total Bilirubin 0.4 (0.2-1.0) mg/dl AST 11 L (13-39) U/L ALT 12 (7-52) U/L Alkaline Phosphatase 73 (34-104) U/L Albumin 4.5 (3.4-5.0) gm/dl Urine 08/05/22 Range/Units 20:28 Urine Color Yellow Urine Appearance Clear (Clear) Urine pH 5.5 (4.5-7.5) Ur Specific Mayflower 1.007 (1.000-1.030) Urine Protein Negative (Negative) Urine Glucose (UA) Negative (Negative) Diagnostic Findings Abdomen/Pelvis CT 08/06/22 02:23 CT OF THE ABDOMEN AND PELVIS WITH CONTRAST CLINICAL HISTORY: Left lower quadrant pain, left low back pain COMPARISON STUDY: CT of the abdomen and pelvis October 29, 2021 and pelvic ultrasound performed earlier today. TECHNIQUE: Following IV administration of 87 mL of Optiray, axial images of the abdomen and pelvis were obtained from the lung bases to the proximal femurs. Images were reviewed in the axial, sagittal, and coronal planes. IV contrast was administered without complication. Automated exposure control was utilized for the study. A dose lowering technique was utilized adhering to the principles of ALARA. CT DOSE: 880.84 mGy.cm FINDINGS: Lung bases are unremarkable. No pneumatosis, free air or portal venous gas is present. There is hepatic steatosis. Mild biliary ductal dilatation is unchanged and likely related to cholecystectomy. Mild splenomegaly is unchanged. There are no hepatic lesions. Adrenal glands, kidneys and pancreas are unremarkable. There is no pancreatic ductal dilatation. No peripancreatic infilt ration is present. There is no hydronephrosis. The appendix is normal. The caliber and wall thickness of small and large bowel are normal. There is no ascites. No lymphadenopathy is present. A 4.1 cm left ovarian cyst is present. 2.3 cm dominant follicle within the right ovary is noted. Major vasculature is patent. IMPRESSION: 1. No acute process within the abdomen or pelvis. 2. No bowel obstruction. No bowel wall thickening. Normal appendix. 3. 4.1 cm left ovarian cyst. ACT 112: Negative or not required by law. Electronically signed by: Kush White M.D. 08/06/2022 7:36 AM Code Status & VTE Plan Code Status Full code in the event of cardiac or respiratory arrest VTE Prophylaxis Plan VTE Prophylaxis will be ordered: Yes Supervising Physician Co-Signing Physician Notes 52-year-old female with PMH of polycystic ovaries, hypothyroidism, insulin resistance, diastolic CHF, gastroparesis, IBS, bilateral SNHL, syringomyelia, muscle contraction headache, bilateral occipital neuralgia, intractable chronic migraine without aura and without status migrainosus, depression presented to our ED 08/06 with complaint of left lower abdomen pain which has been interm ittent and dull in nature since last few days [employer] which gradually progressed to sharp and constant leading her to the ED. Reports pain radiating towards her left flank. Abdominal and pelvis imaging revealed left ovarian cyst. Patient was vitally stable and labs reviewed which were fairly WNL. Procalcitonin was negative. Lipase was negative. test was negative. We will continue to manage pain, consult gynecology due to complex gynecological history/PCOS history with abdominal pain. IV hydration and advance diet as tolerated. On examination: GENERAL: Alert and oriented x3. NAD, on RA. In mild distress. Obese class II. HEENT: No pallor, no icterus. Pupils equal, round and reactive to light. Oral mucosa moist. NECK: No JVD, no neck masses. HEART: S1 and S2 heard. Regular rate and rhythm. No murmur, no gallop. RESPIRATORY SYSTEM: Normal AP diameter. No accessory muscle use. No wheezing, no crackles. ABDOMEN: Soft, bowel sounds present, LLQ tender, no distention. CENTRAL NERVOUS SYSTEM: No facial droop. Speech is clear. Obeys simple commands. Moves extremities. EXTREMITIES: No edema, no erythema seen. I have seen and examined the patient and have discussed the case with the provider above. I agree with the assessment and plan as stated. (1) Migraine Intractability: not intractable Migraine type: without aura Status migrainosus presence: without status migrainosus Qualified Code(s): G43.009 - Migraine without aura, not intractable, without status migrainosus
--- NOTE | 2022-08-06 09:04 | Ultrasound Report ---
PELVIC ULTRASOUND CLINICAL HISTORY: Left lower quadrant pain, hx ov cysts COMPARISON STUDY: Pelvic ultrasound March 11, [address] of the abdomen and pelvis October 29, 2021 . TECHNIQUE: Transabdominal and transvaginal sonography of the pelvis was performed. FINDINGS: Uterus measures 7.1 x 3.9 x 4.7 cm. Endometrium measures 7 mm in thickness. Nabothian cysts within the cervix are noted. The right ovary measures 5.1 x 2.9 x 3.5 cm and the left ovary measures 4.9 x 4.6 x 4.3 cm. There is color flow within each ovary. A 3.8 cm left renal cyst is noted. Multip le follicles within the ovaries are present. No free fluid is identified. IMPRESSION: 1. 3.8 cm left ovarian cyst. 2. No sonographic evidence for ovarian torsion. 2. Numerous follicles within the ovaries. ACT 112: Negative or not required by law. Electronically signed by: Kush White M.D. 08/06/2022 9:02 AM
[2022-08-06] MEDS ORDERED: FAMOTIDINE 20 MG in SYRINGE 3 ML IV SCH (09:45)
[2022-08-06] MEDS ORDERED: ENOXAPARIN INJ 60 MG/0.6 ML SYR SQ SCH (09:45)
[2022-08-06] MEDS: SODIUM CHLORIDE 0.9% 1000ML 1,000 ML IV SCH ×2 (11:22→19:17)
[2022-08-06] MEDS: HYDROmorphone INJ 0.5 MG/0.5 ML SYR IV PRN (14:44)
--- NOTE | 2022-08-06 14:51 | Consultation ---
Date of Consultation August 06, 2022 Assessment & Plan (1) Left ovarian cyst: Plan Observation and conservative management with NSAIDs at this time Will follow as needed Thanks for the consult History of Present Illness Requesting Physician: MATT Alicea Reason for Consultation: ovarian cyst/abdominal pain Attending Physician: Moses Ambriz MD History of Present Illness 42 F P0000 LMP June irregular menses with history of PCOS. Patient noted onset of LLQ pain since which worsened yestreday associated with radiating pain down left leg. She has decrease appetite but no N/V/D/C. Was taking fertility meds and stopped these in January. Had 2 rounds of IUI without . CT and ultrasound show 4.1 cm left ovarian cyst with good flow to both ovaries. No free fluid or adenopathy noted. Uterus normal. Allergies Allergy/AdvReac Type Severity Reaction Status Date / Time morphine Allergy Severe Hives,itchiness,nausea Verified 06/13/22 16:55 and vomiting topiramate Allergy Severe neurological Verified 06/13/22 16:55 symptoms onabotulinumtoxinA Allergy Intermediate Abdominal Verified 06/13/22 16:56 [From Botox] Pain cephalexin Allergy Mild rash Verified 06/13/22 16:55 nickel Allergy Mild Redness of Verified 06/13/22 16:56 Skin Home Medications Medication Instructions Recorded Confirmed Type baclofen 20 mg tablet 10 mg PO DAILY PRN Headache/Neck 06/06/18 08/06/22 History Pain duloxetine 30 mg capsule,delayed 120 mg PO DAILY 06/06/18 08/06/22 History release folic acid 400 mcg tablet 400 mcg PO HS 06/06/18 08/06/22 History levothyroxine 50 mcg tablet 50 mcg PO QAM 06/06/18 08/06/22 History memantine 10 mg tablet 10 mg PO BIDM 06/06/18 08/06/22 History pantoprazole 40 mg tablet,delayed 40 mg PO BID 06/06/18 08/06/22 History release promethazine 25 mg tablet 25 mg PO Q6H PRN Nausea 06/06/18 08/06/22 History cetirizine 10 mg tablet 10 mg PO QAM 02/17/19 08/06/22 History magnesium gluconate 27 mg 125 mg PO HS 05/19/19 08/06/22 History magnesium (500 mg) tablet (Mag-G) galcanezumab-gnlm 120 mg/mL 120 mg subcut MONTHLY 08/03/19 08/06/22 History subcutaneous pen injector (Emgality Pen) diphenoxylate-atropine 2.5 1 tab PO QID PRN Diarrhea 02/18/20 08/06/22 History mg-0.025 mg tablet hydroxyzine HCl 25 mg tablet 25 mg PO QAM 02/18/20 08/06/22 History desipramine 25 mg tablet 25 mg PO DAILY 11/13/20 08/06/22 History gabapentin 300 mg capsule See Rx Instructions .Route .COMPLEX 11/13/20 08/06/22 History dicyclomine 20 mg tablet 20 mg PO QID PRN Abdominal 11/14/20 08/06/22 History Discomfort lorazepam 0.5 mg tablet 1 mg PO UD PRN procedures/panic 11/14/20 08/06/22 History rimegepant 75 mg disintegrating 75 mg PO UD PRN Headache 08/01/21 08/06/22 History tablet (Nurtec ODT) potassium chloride 20 mEq 20 meq PO QAM #30 tabs 03/08/22 08/06/22 Rx tablet,extended release(part/cryst) metoprolol tartrate 50 mg tablet 50 mg PO BID 30 days #60 tabs 03/16/22 08/06/22 Rx spironolactone 25 mg tablet 12.5 mg PO DAILY 30 days #15 tabs 03/16/22 08/06/22 Rx Patient History Medical History (HFpEF) heart failure with preserved ejection fraction Abdominal pain Barretts esophagus Chronic neck pain Deafness in right ear Degenerative disc disease Depression Elevated d-dimer Gastroesophageal reflux disease Gastroparesis High blood pressure History of bronchitis inhaler prn Hypothyroidism Hypothyroidism Insulin resistance Left-sided chest pain Migraine Obesity Polycystic ovaries Surgical History H/O sinus surgery x2--recent on 08/2019 History of colonoscopy History of esophagogastroduodenoscopy (EGD) History of eye surgery x2 on right History of tooth extraction History of wisdom tooth extraction S/P cholecystectomy Family History Mother Family history of reaction to anesthesia after 2 hours afer breast cancer sx "her lungs started filling up with fluid" per pt was told it was d/t anesthesia Breast cancer Environmental allergies Heart disease Hypertension Grandfather (Paternal) Family history of diabetes mellitus Father Cancer Grandfather Cancer Other Diabetes Lung disease No family history of bleeding disorder Seizure Social History Smoking Status: Never smoker Second Hand Exposure: No; Hx Alcohol Use: Yes Alcohol type: wine Alcohol Intake Frequency Comment: 2x per year Hx Substance Use: No Preferred Language: Northern Irish 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 Ability: Effective Electrician Substation Required: No Beliefs That Will Affect Care: None marital status: Current Living Situation: Spouse current occupational status: disabled Other Information That Helps Us Care for You: No Feels Safe at Home: Yes Safety Concerns: Feels Safe At This Time Assistive Devices: Glasses Review of Systems Review of Systems: All systems reviewed & are unremarkable except as noted in HPI & below Physical Exam Constitutional: WD/WN, vitals as above Eyes: PERRL, conjunctivae normal, anicteric sclerae Respiratory: normal respiratory effort, lungs clear to auscultation Cardiovascular: RRR, no murmur, no edema Gastrointestinal (Abdomen): normal bowel sounds, soft, nontender, no hepatosplenomegaly Inspection/Auscultation: abdomen normal to inspection no rebound or guarding noted. no masses noted. Musculoskeletal: Extremities: extremities normal to inspection Skin: no rashes, warm and dry Neurologic: patellar DTR's 2+ bilat, sensation intact Psychiatric: A+Ox3, euthymic affect Results & Data ([facility]) Vital Signs (Past 12 Hours) Vital Signs Temp Pulse Pulse Pulse Resp BP BP 08/06/22 12:30 89 08/06/22 11:50 36.6 C 84 14 140/89 08/06/22 11:30 82 20 146/92 H 08/06/22 05:57 78 20 161/88 H 08/06/22 04:00 78 20 153/104 H 08/06/22 03:00 78 20 139/98 Pulse Ox O2 Del Method 08/06/22 12:30 08/06/22 11:50 95 Room Air 08/06/22 11:30 93 Room Air 08/06/22 05:57 97 Room Air 08/06/22 04:00 93 Room Air 08/06/22 03:00 96 Room Air Laboratory Results 08/05/22 08/05/22 08/05/22 20:25 20:25 20:25 WBC 12.76 H RBC 4.37 Hgb 14.1 Hct 38.8 MCV 88.8 MCH 32.3 MCHC 36.3 H RDW Std Deviation 39.8 RDW Coeff of Cameron 12.2 Plt Count 343 MPV 9.8 Immature Gran % (Auto) 0.5 Neut % (Auto) 69.6 Lymph % (Auto) 21.9 [place] % (Auto) 5.6 Eos % (Auto) 1.9 Baso % (Auto) 0.5 Neut # (Auto) 8.89 H Lymph # (Auto) 2.80 [place] # (Auto) 0.71 Eos # (Auto) 0.24 Baso # (Auto) 0.06 Immature Gran # (Auto) 0.06 H Sodium 139 Potassium 3.5 Chloride 102 Carbon Dioxide 26 Anion Gap 11 BUN 10 Creatinine 0.85 Est Cr Clr Drug Dosing 105.0 Est GFR ( Amer) 98.0 Est GFR (Non-Af Amer) 84.5 BUN/Creatinine Ratio 11.8 Glucose 138 H Calcium 9.4 Total Bilirubin 0.4 AST 11 L ALT 12 Alkaline Phosphatase 73 Total Protein 7.4 Albumin 4.5 Globulin 2.9 Albumin/Globulin Ratio 1.6 Lipase 22 Procalcitonin HCG, Qual Negative Urine Color Urine Appearance Urine pH Ur Specific [place] Urine Protein Urine Glucose (UA) Urine Ketones Urine Blood Urine Nitrite Urine Bilirubin Urine Urobilinogen Ur Leukocyte Esterase Urine WBC (Auto) Urine RBC (Auto) U Hyaline Cast (Auto) U Epithel Cells (Auto) Urine Bacteria (Auto) POC Ur Test SARS-CoV-2, RNA, NAAT 08/05/22 08/05/22 08/06/22 20:28 20:28 07:05 WBC RBC Hgb Hct MCV MCH MCHC RDW Std Deviation RDW Coeff of Cameron Plt Count MPV Immature Gran % (Auto) Neut % (Auto) Lymph % (Auto) [place] % (Auto) Eos % (Auto) Baso % (Auto) Neut # (Auto) Lymph # (Auto) [place] # (Auto) Eos # (Auto) Baso # (Auto) Immature Gran # (Auto) Sodium Potassium Chloride Carbon Dioxide Anion Gap BUN Creatinine Est Cr Clr Drug Dosing Est GFR ( Amer) Est GFR (Non-Af Amer) BUN/Creatinine Ratio Glucose Calcium Total Bilirubin AST ALT Alkaline Phosphatase Total Protein Albumin Globulin Albumin/Globulin Ratio Lipase Procalcitonin HCG, Qual Urine Color Yellow Urine Appearance Clear Urine pH 5.5 Ur Specific [place] 1.007 Urine Protein Negative Urine Glucose (UA) Negative Urine Ketones Negative Urine Blood Negative Urine Nitrite Negative Urine Bilirubin Negative Urine Urobilinogen Negative Ur Leukocyte Esterase Trace H Urine WBC (Auto) 1-5 Urine RBC (Auto) 0-4 U Hyaline Cast (Auto) 1-5 U Epithel Cells (Auto) >30 H Urine Bacteria (Auto) Negative POC Ur Test NEG SARS-CoV-2, RNA, NAAT NEGATIVE 08/06/22 Unknown WBC RBC Hgb Hct MCV MCH MCHC RDW Std Deviation RDW Coeff of Cameron Plt Count MPV Immature Gran % (Auto) Neut % (Auto) Lymph % (Auto) [place] % (Auto) Eos % (Auto) Baso % (Auto) Neut # (Auto) Lymph # (Auto) [place] # (Auto) Eos # (Auto) Baso # (Auto) Immature Gran # (Auto) Sodium Potassium Chloride Carbon Dioxide Anion Gap BUN Creatinine Est Cr Clr Drug Dosing Est GFR ( Amer) Est GFR (Non-Af Amer) BUN/Creatinine Ratio Glucose Calcium Total Bilirubin AST ALT Alkaline Phosphatase Total Protein Albumin Globulin Albumin/Globulin Ratio Lipase Procalcitonin < 0.05 HCG, Qual Urine Color Urine Appearance Urine pH Ur Specific [place] Urine Protein Urine Glucose (UA) Urine Ketones Urine Blood Urine Nitrite Urine Bilirubin Urine Urobilinogen Ur Leukocyte Esterase Urine WBC (Auto) Urine RBC (Auto) U Hyaline Cast (Auto) U Epithel Cells (Auto) Urine Bacteria (Auto) POC Ur Test SARS-CoV-2, RNA, NAAT
[2022-08-06] MEDS ORDERED: DICYCLOMINE HCL 20 MG TAB PO PRN (15:22)
[2022-08-06] MEDS ORDERED: LORazepam 1 MG TAB PO PRN (15:22)
[2022-08-06] MEDS ORDERED: BACLOFEN 10 MG TAB PO PRN (15:22)
[2022-08-06] MEDS ORDERED: PROMETHAZINE HCL 25 MG TAB PO PRN (15:22)
[2022-08-06] MEDS ORDERED: LORazepam 0.5 MG TAB PO PRN (17:14)
[2022-08-06] MEDS: MEMANTINE HCL 10 MG TAB PO SCH (17:40)
[2022-08-06] MEDS ORDERED: IBUPROFEN 200 MG TAB PO PRN (19:29)
[2022-08-06] MEDS: MAGNESIUM CHLORIDE W/CALCIUM 64MG DELAYED REL TAB PO SCH (20:55)
[2022-08-06] MEDS: METOPROLOL TARTRATE 50 MG TAB PO SCH (20:56)
[2022-08-06] MEDS: FOLIC ACID 400 MCG TAB PO SCH (20:56)
[2022-08-06] MEDS: GABAPENTIN 300 MG CAP PO SCH (20:56)
[2022-08-06] MEDS: PANTOprazole 40 MG TAB PO SCH (20:56)
[2022-08-06] MEDS: oxyCODONE HCL IR 5 MG TAB (IMMEDIATE RELEASE) PO PRN (20:59)
[2022-08-07] MEDS: HYDROmorphone INJ 0.5 MG/0.5 ML SYR IV PRN ×2 (01:16→07:24)
[2022-08-07] MEDS: oxyCODONE HCL IR 5 MG TAB (IMMEDIATE RELEASE) PO PRN ×2 (03:21→17:36)
[2022-08-07] MEDS: LEVOTHYROXINE SODIUM 50 MCG TABLET PO SCH (06:04)
[2022-08-07 06:49] LABS: Hematocrit (blood only) 33.5 % (34.1-44.9); Mean Corpuscular Hemoglobin 31.9 pg (25.0-34.0); Mean Corpuscular Hgb Conc 35.8 g/dL (32.0-36.0); Mean Corpuscular Volume 89.1 fL (80.0-100.0); Mean Platelet Volume 9.3 fL (9.4-12.3); Platelet Count 237 K/uL (130-400); RDW Coefficient of Variation 12.1 % (11.5-14.5); RDW Standard Deviation 38.8 fL (36.4-46.3); Red Blood Count 3.76 M/uL (3.93-5.22); White Blood Count 8.58 K/ul (4.8-10.8)
[2022-08-07 07:12] LABS: BUN Creatinine Ratio 15.1 (10-20); Calcium 8.7 mg/dl (8.5-10.1); Est GFR (African American) 117.7 ml/min; Est GFR (Non-African American) 101.6 ml/min; Magnesium 1.7 mg/dl (1.7-2.4); Phosphorus 3.2 mg/dl (2.5-4.9); Potassium 3.6 mmol/L (3.5-5.1)
[2022-08-07] MEDS: DULoxetine HCL 60 MG CAP PO SCH (08:06)
[2022-08-07] MEDS: MEMANTINE HCL 10 MG TAB PO SCH ×2 (08:07→17:39)
[2022-08-07] MEDS: DESIPRAMINE HCL 25 MG TAB PO SCH (08:07)
[2022-08-07] MEDS: CETIRIZINE HCL 10 MG TABLET PO SCH (08:07)
[2022-08-07] MEDS: hydrOXYzine HCl 25 MG TAB PO SCH (08:07)
[2022-08-07] MEDS: METOPROLOL TARTRATE 50 MG TAB PO SCH ×2 (08:07→20:15)
[2022-08-07] MEDS: PANTOprazole 40 MG TAB PO SCH ×2 (08:07→20:17)
[2022-08-07] MEDS: GABAPENTIN 300 MG CAP PO SCH ×3 (08:07→20:16)
[2022-08-07] MEDS: POTASSIUM CHLORIDE CRTAB 20 MEQ TABCR PO SCH (08:07)
[2022-08-07] MEDS: SPIRONOLACTONE 12.5 MG TAB PO SCH (08:08)
--- NOTE | 2022-08-07 15:28 | Hospitalist Progress Note ---
Date of Service August 07, 2022 Assessment & Plan (1) Abdominal pain: (2) Polycystic ovaries: (3) Migraine: (4) (HFpEF) heart failure with preserved ejection fraction: (5) Hypertension: (6) Depression: (7) Hypothyroidism: Plan 42-year-old with abdominal pain and history of polycystic ovaries. being managed for the following: Abdominal pain: LLQ Polycystic ovaries: Abdominal pelvic CT :4.1 cm left ovarian cyst. TVUS 07/24 outpatient: Bilateral ovarian cysts; tubular anechoic structure suggesting hydrosalpinx To unsuccessful IUI; last attempt 01/2022 LMP June 2022 hCG negative; slight leukocytosis 12.76, Pro-David negative Gynecology evaluated, conservative management Pain control with IV Dilaudid and Ketorolac PRN Is tolerating regular diet Is still with pain and utilizing multiple as needed meds, pain management consult. Chronic migraines: Takes Nurtec PRN Takes tizanidine and hydroxyzine and tests Hyperamine; continue Takes Emgality monthly, last dose was August 01 HFpEF: 15 pound weight gain noted with steroid use for poison gabi treatment Patient had developed chest pain and received work-up for ACS/STEMI which was negative And review of chart patient sees Dr. Torre OPT March 2022 ECHO 03/2022 EF 60 to 65% was advised to have OPT stress test which has not been completed Continue home meds. Pt to maintain f/u cardio. Hypertension: Takes Metoprolol; continue IBS: Constipation/diarrhea fluctuates every few days Currently having mucus in her stool; will check stool culture to rule out C. difficile CHF: Takes spironolactone; continue KCl for potassium replacement; continue Depression: Takes duloxetine; continue Hypothyroidism: Takes levothyroxine; continue Disposition: PCP: Dr. Zhou CODE STATUS: Full code VTE prophylaxis: Heparin subcu Dispo: pending improvement in pain, pain Mx consult. 08/07: Pt's updated. Admission and Anticipated Discharge Date Admission Date: August 06, 2022 Subjective Patient seen and examined at bedside as a follow-up of LLQ pain on the background of PCOS history. Patient was lying in bed, reports not being able to sleep overnight, reports ongoing pain at left lower quadrant, has been utilizing multiple as needed medication, denies fever/chills/chest pain/sore throat/cough, reports eating okay, denies other review of symptoms. Physical Exam Physical Exam: GENERAL: Alert and oriented x3. NAD, on RA. In mild distress. Obese class II. HEENT: No pallor, no icterus. Pupils equal, round and reactive to light. Oral mucosa moist. NECK: No JVD, no neck masses. HEART: S1 and S2 heard. Regular rate and rhythm. No murmur, no gallop. RESPIRATORY SYSTEM: Normal AP diameter. No accessory muscle use. No wheezing, no crackles. ABDOMEN: Soft, bowel sounds present, LLQ tender, no distention. CENTRAL NERVOUS SYSTEM: No facial droop. Speech is clear. Obeys simple commands. Moves extremities. EXTREMITIES: No edema, no erythema seen. Results & Data Results & Data ([facility]) Vital Signs (Past 12 Hours) Vital Signs Temp Pulse Pulse Resp BP Pulse Ox O2 Del Method 08/07/22 11:35 36.7 C 60 17 123/80 96 Room Air 08/07/22 11:06 36.7 C 60 17 124/72 94 Room Air 08/07/22 08:05 36.8 C 75 18 121/77 92 Room Air 08/07/22 03:58 36.8 C 70 18 115/74 92 Room Air 08/07/22 03:40 75 (1) Migraine Intractability: not intractable Migraine type: without aura Status migrainosus presence: without status migrainosus Qualified Code(s): G43.009 - Migraine without aura, not intractable, without status migrainosus
[2022-08-07] MEDS: FOLIC ACID 400 MCG TAB PO SCH (20:15)
[2022-08-07] MEDS: HEPARIN SOD 5,000 UNIT/0.5 ML VIAL SQ SCH (20:16)
[2022-08-07] MEDS: MAGNESIUM CHLORIDE W/CALCIUM 64MG DELAYED REL TAB PO SCH (20:17)
[2022-08-07] MEDS ORDERED: MAGNESIUM OXIDE 400 MG TAB PO SCH (21:00)
[2022-08-08] MEDS: HYDROmorphone INJ 0.5 MG/0.5 ML SYR IV PRN (03:47)
[2022-08-08] MEDS: LEVOTHYROXINE SODIUM 50 MCG TABLET PO SCH (05:44)
[2022-08-08 07:05] LABS: Hematocrit (blood only) 34.1 % (34.1-44.9); Hemoglobin 12.1 g/dl (12.0-16.0); Mean Corpuscular Hemoglobin 31.8 pg (25.0-34.0); Mean Corpuscular Hgb Conc 35.5 g/dL (32.0-36.0); Mean Corpuscular Volume 89.7 fL (80.0-100.0); Mean Platelet Volume 9.5 fL (9.4-12.3); Platelet Count 230 K/uL (130-400); RDW Coefficient of Variation 12.1 % (11.5-14.5); RDW Standard Deviation 39.8 fL (36.4-46.3); White Blood Count 8.44 K/ul (4.8-10.8)
[2022-08-08 07:37] LABS: BUN Creatinine Ratio 11.4 (10-20); Calcium 8.9 mg/dl (8.5-10.1); Creatinine Clr Calc Pharmacy 128.4 ml/min; Est GFR (African American) 123.9 ml/min; Est GFR (Non-African American) 106.9 ml/min; Magnesium 1.7 mg/dl (1.7-2.4); Potassium 3.7 mmol/L (3.5-5.1)
--- NOTE | 2022-08-08 08:27 | Pain Management Consultation ---
Date of Consultation August 08, 2022 Assessment & Plan (1) Left lower quadrant abdominal pain: (2) Left ovarian cyst: Plan 1. Patient's presentation appears most consistent with her 4.1 cm ovarian cyst. There appears to be no lumbar radiculopathy component contributing to her curr ent pain complaint. Pain service has nothing interventional to offer the patient at this time. 2. Will transition Toradol to scheduled dosing 15 mg every 6 hours 3. Would recommend discharge with NSAIDs such as diclofenac 75 mg twice daily versus celecoxib 100 mg twice daily 4. Will transition baclofen to scheduled dosing as well 5. Patient was discouraged from utilization of opiate therapy which will likely potentiate her chronic constipation 6. Patient will return to pain clinic next week for her scheduled cervical trigger point injections at her request 7. Pain service will sign off on patient at this time. Thank you for allowing us to participate in the care of Mrs. Pineda History of Present Illness Reason for Consultation: Left lower quadrant abdominal pain Requesting Physician: Moses Ambriz MD Attending Physician: Moses Ambriz MD History of Present Illness Mrs. Price is a 42-year-old obese white female who is known to the pain service for outpatient treatment of chronic neck pain who is scheduled for repeat cervical myoneural trigger point injections next Saturday on 08/13/2022. Patient presented emergently for evaluation of increased left lower quadrant abdominal pain which she reports began approximately 10 days ago without known injury. She reports her pain is similar in location that she is experienced in the past. This pain was increased in intensity and severity with some radiation towards the left flank and the left lower extremity in a nondermatomal pattern to the foot. Patient describes the pain as sharp and fairly constant. She rates her pain a 5-7/10. She denies any true radicular pattern to her pain. Patient does have history of polycystic ovarian syndrome and abdominal CT did reveal a 4.1 cm left ovarian cyst. Patient reports no menses in July. She does have chronic constipation and denies any recent change in her bowel habits. She denies increased pain with bowel movements or urination. She denies dysuria or hematuria. Patient was reporting use of ibuprofen and acetaminophen at home with moderate benefit. She was finding use of IV Toradol to be moderately more effective during this hospitalization and the IV hydromorphone. She denies side effects to her current medications. Patient denies bowel or bladder incontinence or saddle anesthesia. Patient denies it the pain is rating into the vaginal region. She denies vaginal or perineal region pain. Plan of care discussed with Dr. Julita Dunham. Pain Assessment Full Body Front + Back: 1. Left lower quadrant abdomen 2. Left flank 3. Entire left lower extremity-nondermatomal Pain scale - at its best (0-10): 5 Pain scale - at its worst (0-10): 7 Allergies Allergy/AdvReac Type Severity Reaction Status Date / Time morphine Allergy Severe Hives,itchiness,nausea Verified 06/13/22 16:55 and vomiting topiramate Allergy Severe neurological Verified 06/13/22 16:55 symptoms onabotulinumtoxinA Allergy Intermediate Abdominal Verified 06/13/22 16:56 [From Botox] Pain cephalexin Allergy Mild rash Verified 06/13/22 16:55 nickel Allergy Mild Redness of Verified 06/13/22 16:56 Skin Home Medications Medication Instructions Recorded Confirmed Type baclofen 20 mg tablet 10 mg PO DAILY PRN Headache/Neck 06/06/18 08/06/22 History Pain duloxetine 30 mg capsule,delayed 120 mg PO DAILY 06/06/18 08/06/22 History release folic acid 400 mcg tablet 400 mcg PO HS 06/06/18 08/06/22 History levothyroxine 50 mcg tablet 50 mcg PO QAM 06/06/18 08/06/22 History memantine 10 mg tablet 10 mg PO BIDM 06/06/18 08/06/22 History pantoprazole 40 mg tablet,delayed 40 mg PO BID 06/06/18 08/06/22 History release promethazine 25 mg tablet 25 mg PO Q6H PRN Nausea 06/06/18 08/06/22 History cetirizine 10 mg tablet 10 mg PO QAM 02/17/19 08/06/22 History magnesium gluconate 27 mg 125 mg PO HS 05/19/19 08/06/22 History magnesium (500 mg) tablet (Mag-G) galcanezumab-gnlm 120 mg/mL 120 mg subcut MONTHLY 08/03/19 08/06/22 History subcutaneous pen injector (Emgality Pen) diphenoxylate-atropine 2.5 1 tab PO QID PRN Diarrhea 02/18/20 08/06/22 History mg-0.025 mg tablet hydroxyzine HCl 25 mg tablet 25 mg PO QAM 02/18/20 08/06/22 History desipramine 25 mg tablet 25 mg PO DAILY 11/13/20 08/06/22 History gabapentin 300 mg capsule See Rx Instructions .Route .COMPLEX 11/13/20 08/06/22 History dicyclomine 20 mg tablet 20 mg PO QID PRN Abdominal 11/14/20 08/06/22 History Discomfort lorazepam 0.5 mg tablet 1 mg PO UD PRN procedures/panic 11/14/20 08/06/22 History rimegepant 75 mg disintegrating 75 mg PO UD PRN Headache 08/01/21 08/06/22 History tablet (Nurtec ODT) potassium chloride 20 mEq 20 meq PO QAM #30 tabs 03/08/22 08/06/22 Rx tablet,extended release(part/cryst) metoprolol tartrate 50 mg tablet 50 mg PO BID 30 days #60 tabs 03/16/22 08/06/22 Rx spironolactone 25 mg tablet 12.5 mg PO DAILY 30 days #15 tabs 03/16/22 08/06/22 Rx Pain History Pain Intensity Pain scale - at its best (0-10): 5 Pain scale - at its worst (0-10): 7 Patient History Medical History (Updated 08/08/22 @ 08:45 by Caleb Martinez PA-C) (HFpEF) heart failure with preserved ejection fraction Abdominal pain Barretts esophagus Chronic neck pain Deafness in right ear Degenerative disc disease Depression Elevated d-dimer Gastroesophageal reflux disease Gastroparesis High blood pressure History of bronchitis inhaler prn Hypothyroidism Hypothyroidism Insulin resistance Left lower quadrant abdominal pain Left-sided chest pain Migraine Obesity Polycystic ovaries Surgical History H/O sinus surgery x2--recent on 08/2019 History of colonoscopy History of esophagogastroduodenoscopy (EGD) History of eye surgery x2 on right History of tooth extraction History of wisdom tooth extraction S/P cholecystectomy Family History Mother Family history of reaction to anesthesia after 2 hours afer breast cancer sx "her lungs started filling up with fluid" per pt was told it was d/t anesthesia Breast cancer Environmental allergies Heart disease Hypertension Grandfather (Paternal) Family history of diabetes mellitus Father Cancer Grandfather Cancer Other Diabetes Lung disease No family history of bleeding disorder Seizure Social History Smoking Status: Never smoker Second Hand Exposure: No; Hx Alcohol Use: Yes Alcohol type: wine Alcohol Intake Frequency Comment: 2x per year Hx Substance Use: No Preferred Language: Comoran 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 Ability: Effective 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 Speech and thought process appropriate. Mood and affect appropriate. Cognition intact. Patient obese and physically deconditioned. Head: Normocephalic and atraumatic. ENT: No evidence of nasal or oral mucosal lesions. Mucous membranes are moist. Eyes: Pupils equal round reactive to light. Neck: Supple without adenopathy and full range of motion. Abdomen: Soft and nondistended. No organomegaly. Bowel sounds active. No rebound or guarding. Patient is generally tender over the left lower quadrant to palpation. No palpable mass appreciated. Back/spine: Nontender over the midline of the thoracolumbar spine. No paravertebral tenderness. Nontender over the flank region. Nontender to percussion over the flank region. No appreciable spasm or minor trigger points in the lumbar or lumbosacral region. Lower extremities: SLR negative bilaterally. Strength testing 5/5 and equal. Sensation intact without deficit. Patient reports increased left lower quadrant discomfort with resisted hip flexion. Hip nontender with internal/external rotation. Neurologic: Cranial nerves grossly intact. Ambulatory function not witnessed. Results (Pain Clinic) Diagnostic Review CT Findings: [place], [place] [phone] CT Scan Report Patient:KAROLYN PINEDA Admit Date:08/05/22 MR#:[id number] Address1:[address] [place] [address] DR Llamas ID:[id number] Address2: Date:1980 [facility] Zip:[place] [address] Age:42 Location:ED Sex:F Room/Bed: Att Phy: Diagnosis:ABDOMINAL PAIN Yelena Phy:Melania Zhou DO Service Date:08/06/22 [facility] Phy: Interpreting Phy:Kush White MDAdmit Phy: Ordering Phy:Whitney Emanuel DO cc: ~ CT OF THE ABDOMEN AND PELVIS WITH CONTRAST CLINICAL HISTORY: Left lower quadrant pain, left low back pain COMPARISON STUDY: CT of the abdomen and pelvis October 29, 2021 and pelvic ultrasound performed earlier today. TECHNIQUE: Following IV administration of 87 mL of Optiray, axial images of the abdomen and pelvis were obtained from the lung bases to the proximal femurs. Images were reviewed in the axial, sagittal, and coronal planes. IV contrast was administered without complication. Automated exposure control was utilized for the study. A dose lowering technique was utilized adhering to the principles of ALARA. CT DOSE: 880.84 mGy.cm FINDINGS: Lung bases are unremarkable. No pneumatosis, free air or portal venous gas is present. There is hepatic steatosis. Mild biliary ductal dilatation is unchanged and likely related to cholecystectomy. Mild splenomegaly is unchanged. There are no hepatic lesions. Adrenal glands, kidneys and pancreas are unremarkable. There is no pancreatic ductal dilatation. No peripancreatic infiltration is present. There is no hydronephrosis. The appendix is normal. The caliber and wall thickness of small and large bowel are normal. There is no ascites. No lymphadenopathy is present. A 4.1 cm left ovarian cyst is present. 2.3 cm dominant follicle within the right ovary is noted. Major vasculature is patent. IMPRESSION: 1. No acute process within the abdomen or pelvis. 2. No bowel obstruction. No bowel wall thickening. Normal appendix. 3. 4.1 cm left ovarian cyst. ACT 112: Negative or not required by law. Electronically signed by: Kush White M.D. 08/06/2022 7:36 AM Dictated:08/06/22727 Transcribed: 08/06/22727 [phone] Ultrasound Report Patient:KAROLYN PINEDA Admit Date:08/05/22 MR#:[id number] Address1:[address] [place] [address] Acct ID:[id number] Address2: Date:1980 [facility] Zip:[place] [address] Age:42 Location:ED Sex:F Room/Bed: Att Phy: Diagnosis:ABDOMINAL PAIN Yelena Phy:Melania Zhou DO Service Date:08/05/22 [place] Phy: Interpreting Phy:Kush White MDAdmit Phy: Ordering Phy:Whitney Emanuel DO cc: ~ PELVIC ULTRASOUND CLINICAL HISTORY: Left lower quadrant pain, hx ov cysts COMPARISON STUDY: Pelvic ultrasound March 11, [address] of the abdomen and pelvis October 29, 2021. TECHNIQUE: Transabdominal and transvaginal sonography of the pelvis was performed. FINDINGS: Uterus measures 7.1 x 3.9 x 4.7 cm. Endometrium measures 7 mm in thickness. Nabothian cysts within the cervix are noted. The right ovary measures 5.1 x 2.9 x 3.5 cm and the left ovary measures 4.9 x 4.6 x 4.3 cm. There is color flow within each ovary. A 3.8 cm left renal cyst is noted. Multiple follicles within the ovaries are present. No free fluid is identified. IMPRESSION: 1. 3.8 cm left ovarian cyst. 2. No sonographic evidence for ovarian torsion. 2. Numerous follicles within the ovaries. ACT 112: Negative or not required by law. Electronically signed by: Kush White M.D. 08/06/2022 9:02 AM Dictated:08/06/22900 Transcribed: 08/06/22900
[2022-08-08] MEDS ORDERED: KETOROLAC TROMETHAMINE 15 MG/ML VIAL IV SCH (08:45)
[2022-08-08] MEDS: MEMANTINE HCL 10 MG TAB PO SCH (08:51)
[2022-08-08] MEDS: DESIPRAMINE HCL 25 MG TAB PO SCH (08:55)
[2022-08-08] MEDS: PANTOprazole 40 MG TAB PO SCH (08:55)
[2022-08-08] MEDS: hydrOXYzine HCl 25 MG TAB PO SCH (08:56)
[2022-08-08] MEDS: DULoxetine HCL 60 MG CAP PO SCH (08:56)
[2022-08-08] MEDS: GABAPENTIN 300 MG CAP PO SCH ×3 (08:56→14:39)
[2022-08-08] MEDS: SPIRONOLACTONE 12.5 MG TAB PO SCH (08:56)
[2022-08-08] MEDS: METOPROLOL TARTRATE 50 MG TAB PO SCH (08:56)
[2022-08-08] MEDS: CETIRIZINE HCL 10 MG TABLET PO SCH (08:56)
[2022-08-08] MEDS: POTASSIUM CHLORIDE CRTAB 20 MEQ TABCR PO SCH (08:56)
[2022-08-08] MEDS: HEPARIN SOD 5,000 UNIT/0.5 ML VIAL SQ SCH (08:57)
[2022-08-08] MEDS ORDERED: BACLOFEN 10 MG TAB PO SCH (09:00)
[2022-08-08] MEDS ORDERED: KETOROLAC TROMETHAMINE 15 MG/ML VIAL IV PRN (12:46)
--- NOTE | 2022-08-08 12:59 | Discharge Summary ---
Date of Service August 08, 2022 Admission HPI Per Admitting Provider Ms. Cassi Preston is a 42-year-old female that presented to the [facility] with LLQ pain. The patient describes her pain as being intermittent since however on the pain became more constant with radiation from the LLQ to her left flank area and describes radiation down to her toes. An abdominal and pelvic CT was obtained and negative and an abdominal ultrasound revealed a 4.1 left ovarian cyst. Patient historically has had a complex reproductive history including PCOS for which she has been on Femara in the past but is not currently taking for infertility she describes that her and her have been trying to conceive for the last 4 years and have been following with a fertility specialist and had 2 IUI procedures with the last one being 01/2022. Transvaginal ultrasound was done 07/2022 revealing bilateral ovarian cysts and a tubular anechoic structure suggesting hydrosalpinx. She reports that she usually has a menstrual period monthly however has not had one since June 2022. Patient reports that she has IBS and has noticed mucus in her stool. Additional past medical history includes gastroparesis, migraines, obesity, hypertension, CHF. The patient was tearful at bedside and appears to be uncomfortable . She did just receive a dose of Dilaudid which she reports did help . On exam deep palpation to the left lower quadrant is tender. Positive left CVA tenderness. ; Patient does have slight leukocytosis will check UA and stool culture . Procalcitonin pending. We will continue to rule out organic causes of this patient's. abdominal pa I did touch base with on-call OB who will evaluate the patient as well. Patient will be admitted for further evaluation and management including pain control . We will keep n.p.o. for now . Please see A/P for further details. Admission Exam Per Admitting Provider Neuro: AAOx4, PERRLA, no aphagia, memory changes, CNII-XII grossly intact; tearful HEENT: head normocephalic, moist mucus membranes CV: S1/S2, (-) M/G/R, (-) edema, cap refill < 3 seconds Resp: Lungs CTA in all snyder. On RA GI: Abdomen Ax4 bowel sounds, (+) left CVA tenderness (+) LLQ tenderness Musculoskeletal: 5/5 B/L UE strength, 5/5 B/L LE strength. No gait disturbance Skin: (-) rashes , (-) erythema. Psych: euthymic, yet tearful mood Principal Diagnosis LLQ pain Left Ovarian Cyst : 4.1 cm Discharge Exam GENERAL: Alert and oriented x3. NAD, on RA. In mild distress. Obese class II. HEENT: No pallor, no icterus. Pupils equal, round and reactive to light. Oral mucosa moist. NECK: No JVD, no neck masses. HEART: S1 and S2 heard. Regular rate and rhythm. No murmur, no gallop. RESPIRATORY SYSTEM: Normal AP diameter. No accessory muscle use. No wheezing, no crackles. ABDOMEN: Soft, bowel sounds present, LLQ tender-minimal to none today, no di stention. CENTRAL NERVOUS SYSTEM: No facial droop. Speech is clear. Obeys simple commands. Moves extremities. EXTREMITIES: No edema, no erythema seen. Discharge Data Allergies Allergy/AdvReac Type Severity Reaction Status Date / Time morphine Allergy Severe Hives,itchiness,nausea Verified 06/13/22 16:55 and vomiting topiramate Allergy Severe neurological Verified 06/13/22 16:55 symptoms onabotulinumtoxinA Allergy Intermediate Abdominal Verified 06/13/22 16:56 [From Botox] Pain cephalexin Allergy Mild rash Verified 06/13/22 16:55 nickel Allergy Mild Redness of Verified 06/13/22 16:56 Skin Consultations 08/06/22 07:48 ED Decision to Admit Stat 08/06/22 11:49 Consult Gynecology Routine 08/07/22 10:47 Consult Pain Management Routine Ordered Studies 08/05/22 23:23 US pelvic complete Urgent US transvaginal Urgent 08/06/22 02:23 CT abd pelvis IV con only Stat Hospital Course (1) Abdominal pain: (2) Polycystic ovaries: (3) Migraine: (4) (HFpEF) heart failure with preserved ejection fraction: (5) Hypertension: (6) Depression: (7) Hypothyroidism: Plan 42-year-old with abdominal pain and history of polycystic ovaries. She was managed for the following: Abdominal pain: LLQ Polycystic ovaries: Abdominal pelvic CT :4.1 cm left ovarian cyst. TVUS 07/24 outpatient: Bilateral ovarian cysts; tubular anechoic structure suggesting hydrosalpinx To unsuccessful IUI; last attempt 01/2022 LMP June 2022 hCG negative; slight leukocytosis 12.76, Pro-David negative Gynecology evaluated, conservative management Pain control with IV Dilaudid and Ketorolac PRN while in hosp; Pain Mx evaled, porfirio baclofen and porfirio diclofenac. Pt to f/u w/ pcp or pain mx as OP if pain doesn't improve or worsens. Is tolerating regular diet Pt hemodynamically stable and reports pain getting better. Chronic migraines: Takes Nurtec PRN Takes tizanidine and hydroxyzine and tests Hyperamine; continue Takes Emgality monthly, last dose was August 01 HFpEF: 15 pound weight gain noted with steroid use for poison gabi treatment Patient had developed chest pain and received work-up for ACS/STEMI which was negative And review of chart patient sees Dr. Torre OPT March 2022 ECHO 03/2022 EF 60 to 65% was advised to have OPT stress test which has not been completed Continue home meds. Pt to maintain f/u cardio. Hypertension: Takes Metoprolol; continue IBS: Constipation/diarrhea fluctuates every few days Currently having mucus in her stool; will check stool culture to rule out C. difficile CHF: Takes spironolactone; continue KCl for potassium replacement; continue Depression: Takes duloxetine; continue Hypothyroidism: Takes levothyroxine; continue Disposition: PCP: Dr. Zhou CODE STATUS: Full code VTE prophylaxis: Heparin subcu Dispo: pending improvement in pain, pain Mx consult. 08/07: Pt's updated. Patient was discharged home with following instruction at the point of discharge: Follow-up with your primary care physician within a week time and likely you will need blood test CBC/CMP. Follow-up with your pain clinic next week for your scheduled cervical trigger point injection. You will be discharged on diclofenac 75 mg twice a day for pain control, continue to take your usual Protonix twice a day. You can use your baclofen as a scheduled to help with the pain. You will be discharged with few days worth of Percocet, if your pain continues to worsen or doesn't improve, you will need evaluation with either pain management clinic or PCP for further pain management prescription. Take your medications as prescribed. Please make sure that you are able to get your medications today by calling your pharmacy before you leave the hospital so that your treatment continuity is not broken. Home Health Attestation I certify that this patient is under my care and that I, or a physicians rn first assistant working with me, had a face to-face encounter that meets the home health [id number] encounter requirements with this patient. The encounter with the patient was in whole, or in part, for the following medical condition, which is the primary reason for home health care (list medical condition): I certify that, based on my findings, the following services are medically necessary home health services: My clinical findings support the need for the above services because: Further, I certify that my clinical findings support that this patient is homebound (i.e. absences from home require considerable and taxing effort and are for medical reasons or orthodox services or infrequently or of short duration when for other reasons) because: Certification for Home Health Services: Based on the above findings, I certify that this patient is confined to the home and needs intermittent prison care, physical therapy and/or speech therapy or continues to need occupational therapy. The patient is under my care, and I have initiated the establishment of the plan of care. This patient will be followed by a physician who will periodically review the plan of care. Total Time Total Time Spent Total Time Spent (In Minutes): 40 Discharge Plan Discharge Items Patient Disposition: Home - Self-Care Reason For Visit: LLQ PAIN Discharge Diagnosis: LLQ pain Left Ovarian Cyst : 4.1 cm Activity: Resume your previous activity Non-emergency contact: Primary Care Provider Call non-emergency contact if: you have any medication questions, your symptoms worsen, your pain is not controlled and your temperature is above 101 Follow-up/Referrals: Zaira Monroy PA-C [Physician Physician Allergist Immunologist] - 08/13/22 7:45 am Melania Zhou DO [Primary Care Provider] - (Date & Time 08/13/2022 11:10 AM Provider Melania Zhou DO Department [facility] ) Diet: Regular Addtl Attending Provider Instructions: Follow-up with your primary care physician within a week time and likely you will need blood test CBC/CMP. Follow-up with your pain clinic next week for your scheduled cervical trigger point injection. You will be discharged on diclofenac 75 mg twice a day for pain control, continue to take your usual Protonix twice a day. You can use your baclofen as a scheduled to help with the pain. You will be discharged with few days worth of Percocet, if your pain continues to worsen or doesn't improve, you will need evaluation with either pain management clinic or PCP for further pain management prescription. Take your medications as prescribed. Please make sure that you are able to get your medications today by calling your pharmacy before you leave the hospital so that your treatment continuity is not broken. Pending Studies at Discharge: No Stand-Alone Forms: My [facility], Smoking Cessation Medications and DC Order Prescriptions: New baclofen 10 mg Tablet 5 mg PO BID Qty: 30 0RF diclofenac sodium 75 mg tablet,delayed release (DR/EC) 75 mg PO BID Qty: 20 0RF oxycodone-acetaminophen [Percocet] 5-325 mg tablet 1 tab PO Q8H PRN (Reason: pain (scale score 7-10)) Qty: 15 0RF Continued Nurtec ODT 75 mg tablet,disintegrating 75 mg PO UD MDD 2 days a week PRN (Reason: Headache) Rx Instructions: take 1 tablet at begining of headache folic acid 400 mcg tablet 400 mcg PO HS levothyroxine 50 mcg tablet 50 mcg PO QAM Rx Instructions: TAKE THIS MEDICATION 30 MINUTES BEFORE BREAKFAST OR ANY OTHER MEDICATIONS pantoprazole 40 mg tablet,delayed release (DR/EC) 40 mg PO BID promethazine 25 mg tablet 25 mg PO Q6H PRN (Reason: Nausea) memantine 10 mg tablet 10 mg PO BIDM Rx Instructions: TAKE THIS MEDICATION WITH MORNING AND EVENING MEALS duloxetine 30 mg capsule,delayed release(DR/EC) 120 mg PO DAILY Rx Instructions: 4 capsule dose magnesium gluconate [Mag-G] 27 mg magnesium (500 mg) tablet 125 mg PO HS cetirizine 10 mg Tablet 10 mg PO QAM Emgality Pen 120 mg/mL pen injector 120 mg SUBCUT MONTHLY Rx Instructions: USUALLY ON THE OF THE MONTH - last dose was Saturday diphenoxylate-atropine 2.5-0.025 mg tablet 1 tab PO QID PRN (Reason: Diarrhea) hydroxyzine HCl 25 mg tablet 25 mg PO QAM desipramine 25 mg tablet 25 mg PO DAILY gabapentin 300 mg capsule See Rx Instructions .ROUTE .COMPLEX Rx Instructions: 300 mg orally ;take 1 capsule in morning and may repeat 1 capsule midday.take up to 3 capsules at bedtime lorazepam 0.5 mg tablet 1 mg PO UD PRN (Reason: procedures/panic) Rx Instructions: take 1 tablet 1 hour prior to procedure,repeat in 15 min befor and again if needed for panic dicyclomine 20 mg Tablet 20 mg PO QID PRN (Reason: Abdominal Discomfort) potassium chloride 20 mEq Tablet,Er Particles/Crystals 20 meq PO QAM Qty: 30 0RF spironolactone 25 mg Tablet 12.5 mg PO DAILY 30 Days Qty: 15 1RF metoprolol tartrate 50 mg Tablet 50 mg PO BID 30 Days Qty: 60 1RF Discontinued baclofen 20 mg tablet 10 mg PO DAILY PRN (Reason: Headache/Neck Pain) Rx Instructions: take 0.5 tablet daily as needed for headache Discharge Orders: Discharge Order (Routine); Ordered 08/08/22 Ordered By: Moses Ambriz Admission Data Admit Date/Time: 08/06/22 07:51 Attending Provider: Moses Ambriz Admit Provider: Moses Ambriz Primary Care Provider: Melania Zhou Other Providers: Moses Ambriz ; Tex Quinn Upendra
== END 2022-08-08 15:08 | disposition home or self-care (01) | DRG 760 ==
LOC: ED 20:13 → EDINP 08-06 07:51 → 2S 08-06 09:15